=== PATIENT | female | born 1960 | race Caucasian/White ===

== ENCOUNTER → 2016-09-12 | Outpatient (CLI) | payer MEDICARE, MEDICAID ==
[~2016-09-12] MED LIST: ALPR.25T; AMOX250C PO; AMOX500T2 PO; APIX5TAB PO; BUDE10.2 IH; BUDE180A IH; CATHETER FLUSH 10 ML SYR IV PRN; CEFD300C3 PO; CEFU250T PO; CETI10TA20 PO; CHOL4PAC16 PO; CITA10TA70; DESV50TA PO; DIAZ5TAB3 PO; DIPH1TAB PO; ESTR0.5T PO; HYDR-3816 PO; HYDR1CAP2; IOHEXOL 350 MG/ML 100 ML (OMNIPAQUE 350) VIAL IV ONE; LANS15CA; MEDR2.5T PO; MONT10TA24 PO; NS 100 ML (IVPB) BAG IV ONE; ONDA4TAB8 PO; PANT40TA2 PO; PANT40TA3 PO; PRAV40TA2 PO; PRD20T PO; RANI150T90 PO; RT-ALBUINH IH; SOTA80TA PO; UMEC1BLS IH; UMEC62.5 IH; VARE1TAB22 PO
--- OUTSIDE RECORDS SUMMARY | 2016-09-12 12:27 | XMS REPORT | Continuity of Care Document ---
Author Author [facility] Organization [facility] Address Unknown Phone Unavailable Care Team Providers Care Apprentice Stylist Name Role Phone MUKESH NEWELL MD PCP Insurance Providers Payer Name Policy Number Subscriber Name Relationship s Medicare [id number] Britta Clarke 18 Self / Same As Patient [facility] [employer] [id number] Britta Clarke 18 Self / Same As Patient Advance Directives Directive Response Recorded Date/Time Advance Directives No 10/20/08 11:00am Health Care Power of Gas Operations Superintendent No 10/20/08 11:00am Organ Donor Yes 10/20/08 11:00am Problems No known problems or medical conditions. Medications Medication Dose Route Sig Days/Qty Instructions Order Date Discontinued Date Status Citalopram Hydrobromide 12/28/09 Active Lansoprazole 12/28/09 Active Hydrocodone Bit/Acetaminophen 12/28/09 Active Alprazolam 12/28/09 Active Social History Social History Problem Response Recorded Date/Time Recent Foreign Travel No 10/19/2014 9:17am Hospital Discharge Instructions No hospital discharge instructions. Plan of Care No plan of care. Functional Status No functional status results. Allergies, Adverse Reactions, Alerts Allergen Type Severity Reaction Status Last Updated No Known Drug Allergies Allergy Unknown Active 10/20/08 Immunizations No immunization records. Vital Signs No known vital signs results. Results No known relevant diagnostic tests, laboratory data and/or discharge summary. Procedures No known history of procedures. Encounters Encounter Location Date/Time Discharged Recurring Via [facility] 11/04/14 3:36pm
--- NOTE | 2016-09-12 14:35 | Diagnostic Imaging Report ---
PROCEDURE: CT chest with contrast only. TECHNIQUE: Multiple contiguous axial images were obtained through the chest after administration of intravenous contrast. INDICATION: Lung cancer. COMPARISON: PET/CT of 05/15/[address] chest of 09/29/2015. FINDINGS: The previously seen areas of scarring in the superior segment of the right lower lobe posterior to the right hilum are again noted. Since the prior exams, there has been radiation changes to the right lung apex previously seen nodule which measures 9 mm on the prior PET. At this time, there is enlargement of the nodular density to 1.3 cm with adjacent mixed density consolidation. This could be related to radiation changes. There are fiducial markers seen anterior to this nodule. There is background emphysema. Minimal atelectasis in the right lung base is seen. No pleural effusion. No pericardial effusion. The heart size is normal. The thoracic aorta is normal in caliber. No mediastinal mass or mediastinal or hilar significant lymphadenopathy is seen. Borderline sized right paratracheal lymph node with fatty hilum is again noted and is likely benign. This demonstrated no FDG avidity on April PET exam. Bilateral subglandular breast implants are seen. No axillary lymphadenopathy is noted. Sections in the upper abdomen demonstrate a tiny hypodense lesion in the medial aspect of the left hepatic lobe measuring 0.6 cm. This is not definitively seen on the prior exam. This is however too small to characterize. The adrenals appear unremarkable. The osseous structures appear grossly unremarkable. IMPRESSION: 1. The nodule in the right lung apex appears slightly larger with surrounding mixed density consolidation probably related to interval radiation therapy changes. Continued followup recommended. No new mass or nodule. 2. Emphysema. 3. Medial left hepatic lobe 0.6 cm indeterminate hypodense lesion too small to accurately characterize. Followup recommended. Dictated by: Dictated on workstation # [id number]
== END ==
LOC: RAD 12:23
PROVIDERS: ATTEND Internal Medicine
DX: C34.91 Malignant neoplasm of unspecified part of right bronchus or lung (principal)
CPT/HCPCS: 71260

== ENCOUNTER → 2016-10-23 | Outpatient (CLI) | payer MEDICARE, MEDICAID ==
[~2016-10-23] MED LIST changes: -CATHETER FLUSH 10 ML SYR IV PRN; -IOHEXOL 350 MG/ML 100 ML (OMNIPAQUE 350) VIAL IV ONE; -NS 100 ML (IVPB) BAG IV ONE
--- NOTE | 2016-10-23 15:03 | Diagnostic Imaging Report ---
EXAMINATION: PET-CT TECHNIQUE: Serum glucose level at the time of the study is: 104 mg/dL. 13 mCi of FDG was administered intravenously followed by obtaining PET images with corresponding noncontrast CT scan images. The CT scan was performed for anatomic correlation and attenuation correction and was not performed according to the diagnostic protocol of the areas covered. The scan was performed from the head to mid thighs. INDICATION: Non-small cell lung cancer. The patient has had CyberKnife radiation treatment in January 2016 for right upper lobe nodule. FINDINGS: Current measurement of the right upper lobe nodule is 1.4 cm. This is associated with surrounding groundglass opacity. There is associated mild increased FDG uptake with a maximum SUV of 3.2. Fiducial markers at the site of the nodule slightly anterior to the nodule is seen. There is appearance suggestive of scarring in the posterior perihilar region on the right side likely related to scarring from prior treatments. There is otherwise no suspicious hypermetabolic mass or lymphadenopathy in the chest. IN THE ABDOMEN AND PELVIS: There is urinary expected excretion of the tracer seen. There is activity projecting over the rectum as well inseparable from the bladder activity. Whether this is physiologic or related to underlying hypermetabolic lesion is uncertain. This activity also involves the upper cervix and vagina region. No obvious mass on the associated localizer CT scan. The brain has symmetric FDG uptake. In the neck, there is no significant hypermetabolic activity noted. IMPRESSION: 1. Right upper lobe pulmonary 1.4 cm nodule slightly larger compared to 05/15/2016 with surrounding groundglass opacity and minimal hypermetabolism is noted. This could be related to radiation effects with no suspicious other lesion seen in the chest. Continued followup recommended. 2. Indeterminate mild to moderate increased FDG uptake projecting over the upper vagina/cervix region and projecting over the rectum is noted. There is no definite associated soft tissue lesion on the localizer unenhanced CT scan. Clinical correlation would help and consider endoscopic evaluation if needed. Physiologic activity or inflammation in the vagina or rectum could explain this finding. Dictated by: Dictated on workstation # [id number]
--- OUTSIDE RECORDS SUMMARY | 2016-10-23 15:56 | XMS REPORT | Continuity of Care Document ---
Author Author [facility] Organization [facility] Address Unknown Phone Unavailable Care Team Providers Care Gluer Machine Setup Operator Name Role Phone MUKESH NEWELL MD PCP Insurance Providers Payer Name Policy Number Subscriber Name Relationship s Medicare [id number] Britta Clarke 18 Self / Same As Patient [facility] [employer] [id number] Britta Clarke 20 Self / Same As Patient Advance Directives Directive Response Recorded Date/Time Advance Directives No 10/20/08 11:00am Health Care Power of Clerk Carrier No 10/20/08 11:00am Organ Donor Yes 10/20/08 [...] Encounters Encounter Location Date/Time Discharged Recurring Via [facility] 11/04/14 3:36pm
== END ==
LOC: RAD 12:06
PROVIDERS: ATTEND Internal Medicine Critical Care Medicine
DX: R91.1 Solitary pulmonary nodule (principal); C34.91 Malignant neoplasm of unspecified part of right bronchus or lung

== ENCOUNTER → 2016-11-01 | Outpatient (CLI) | payer MEDICARE, MEDICAID ==
--- OUTSIDE RECORDS SUMMARY | 2016-11-01 10:18 | XMS REPORT | Continuity of Care Document ---
Author Author [facility] Organization [facility] Address Unknown Phone Unavailable Care Team Providers Care Merchandise Processor Name Role Phone MUKESH NEWELL MD PCP Insurance Providers Payer Name Policy Number Subscriber Name Relationship s Medicare [id number] Britta Clarke 20 Self / Same As Patient [facility] [employer] [id number] Britta Clarke 20 Self / Same As Patient Advance Directives Directive Response Recorded Date/Time Advance Directives No 10/20/08 11:00am Health Care Power of Processing Manager No 10/20/08 11:00am Organ Donor Yes 10/20/08 [...] Encounters Encounter Location Date/Time Discharged Recurring Via [facility] 11/04/14 3:36pm
--- NOTE | 2016-11-01 18:00 | Diagnostic Imaging Report ---
INDICATION: Cervical mass. Post menopausal. TECHNIQUE: Multiple real-time grayscale sonographic images were obtained of the pelvis transabdominally and endovaginally. CORRELATION STUDY: None FINDINGS: UTERUS/ENDOMETRIUM: Uterus measures 8.4 x 4.1 x 3.5 cm. The uterus has an unremarkable appearance. The endometrium measures 5 mm in thickness. RIGHT OVARY: Not visualized on transabdominal and/or endovaginal imaging. LEFT OVARY: Not visualized on transabdominal and/or endovaginal imaging. No significant free pelvic fluid. There is prominent appearance about the level of the cervix. This measures approximately 1.4 x 1.3 x 1.0 cm. There appear to be multiple cystic areas likely small cervical nabothian cysts. IMPRESSION: 1. Suggestion of nonspecific enlargement about the cervix. Correlation with direct visualization and biopsy would be recommended if indicated. Probable cervical nabothian cysts. 2. Endometrium is at the most upper limits of normal in thickness for a postmenopausal patient. Possibility of early endometrial hyperplasia or less likely carcinoma not excluded but should consider short-term follow-up imaging for reassessment. 3. Nonvisualization of either ovary may be owing to positioning, obscuration, or perhaps small size. Dictated by: Dictated on workstation # [id number]
--- NOTE | 2016-11-12 13:50 | Diagnostic Imaging Report ---
EXAMINATION: Bilateral screening mammogram with a Computer Aided Detection (CAD) system. INDICATION: Screening. PERSONAL HISTORY: No current complaints stated on the questionnaire. COMPARISON: 01/12/2014. FINDINGS: The breasts are composed of heterogeneously dense parenchyma which may decrease mammographic sensitivity. Retroglandular bilateral implants are seen which appear symmetric. Allowing for technique and positional differences, no suspicious change is seen. IMPRESSION: No significant change. ACR BI-RADS Category 2: Benign findings. Result letter will be mailed to the patient. Note: At least 10% of breast cancer is not imaged by mammography. Dictated by: Dictated on workstation # [id number]
== END ==
LOC: RAD 10:15
PROVIDERS: ATTEND Nurse Practitioner
DX: Z12.31 Encounter for screening mammogram for malignant neoplasm of breast (principal); N88.8 Other specified noninflammatory disorders of cervix uteri
CPT/HCPCS: 76830; 76856; 77067

== ENCOUNTER 2016-11-29 14:32 | Outpatient (CLI) | payer MEDICARE, MEDICAID ==
[~2016-11-29] VITALS: Ht 167.6 cm; Wt 93.0 kg
[~2016-11-29 14:32] MED LIST changes: -AMOX250C PO; -AMOX500T2 PO; -BUDE10.2 IH; -DESV50TA PO; -MONT10TA24 PO; -PANT40TA3 PO; -PRAV40TA2 PO; -UMEC62.5 IH; -VARE1TAB22 PO
[2016-11-29 14:40] VITALS: BP 110/71
[2016-11-29] MEDS ORDERED: VARE1TAB22 PO (14:49)
[2016-11-29] MEDS ORDERED: BUDE10.2 IH (14:49)
[2016-11-29] MEDS ORDERED: DESV50TA PO (14:49)
[2016-11-29] MEDS ORDERED: AMOX250C PO (14:49)
[2016-11-29] MEDS ORDERED: UMEC62.5 IH (14:49)
[2016-11-29] MEDS ORDERED: PANT40TA3 PO (16:09)
[2016-11-29] MEDS ORDERED: RT-ALBUINH IH (16:09)
[2016-11-29] MEDS ORDERED: PRD20T PO (16:09)
[2016-11-29] MEDS ORDERED: MONT10TA24 PO (16:09)
[2016-11-29] MEDS ORDERED: PRAV40TA2 PO (16:09)
[2016-11-29] MEDS ORDERED: AMOX500T2 PO (16:12)
== END 2016-11-29 14:55 | disposition home or self-care (01) ==
LOC: PREOP 14:32
PROVIDERS: ATTEND Obstetrics & Gynecology
DX: Z01.818 Encounter for other preprocedural examination (principal); Z11.2 Encounter for screening for other bacterial diseases; R93.8 Abnormal findings on diagnostic imaging of other specified body structures; Z85.118 Personal history of other malignant neoplasm of bronchus and lung
CPT/HCPCS: 87081

== ENCOUNTER 2016-12-03 06:29 | Day surgery (SDC) | payer MEDICARE, MEDICAID ==
[~2016-12-03] VITALS: Ht 167.6 cm; Wt 93.0 kg
[~2016-12-03 06:29] MED LIST changes: +AMOX250C PO; +AMOX500T2 PO; +BUDE10.2 IH; +DESV50TA PO; +MONT10TA24 PO; +PANT40TA3 PO; +PRAV40TA2 PO; +UMEC62.5 IH; +VARE1TAB22 PO
[2016-12-03 06:50] VITALS: BP 127/80
[2016-12-03 06:50] LABS: BILIRUBIN,URINE NEGATIVE (NEGATIVE); KETONES,URINE NEGATIVE (NEGATIVE); LEUKOCYTE ESTERASE ,URINE 1+ (NEGATIVE); NITRITE,URINE NEGATIVE (NEGATIVE); PH,URINE 7 (5-9); PROTEIN,URINE 1+ (NEGATIVE); UROBILINOGEN,URINE 4 MG/DL (NORMAL)
[2016-12-03 07:00] LABS: WBC,URINE RARE /HPF
[2016-12-03] MEDS ORDERED: MIDAZOLAM 2 MG/2 ML (VERSED) VIAL IV ONE (07:15)
[2016-12-03] MEDS ORDERED: fentaNYL INJECTION 100 MCG/2 ML AMP ONE ×2 (07:15→08:57)
[2016-12-03] MEDS: LACTATED RINGERS 1,000 ML IV PRN ×2 (07:24→08:17)
--- NOTE | 2016-12-03 07:44 | Progress Note-Standard ---
"Standard Progress Note Progress Notes/Assess & Plan Date Seen 12/03/16 Assess & Plan/Chief Complaint H&P sent on 11/30/16 by myself via fax however pre-op does not have it, thus it is copy and pasted into the patient's chart this AM No changes to H&P this AM Gynecology Visit * Patient: ROC NAYAK Age: 56 years Sex: Female : 1960 Associated Diagnoses: None Author: Cayetano SUMMERS, Senait Visit Information Visit type: New patient evaluation. Accompanied by: No one. Source of history: Self, Medical record. Referral source: Jessica Adler APRN. History limitation: None. 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 No PMB. Is on HRT as RX by Jessica. Reports yeast like symptoms after finishing antibiotics Worried that this could represent a new cancer Review of Systems Breast: Negative. Gastrointestinal: Negative, No abdominal pain. Genitourinary: reports incomplete emptying, incontinence. Gynecologic: discharge, itching thought to be r/t yeast . Psychiatric: Negative. Health Status Allergies: Allergic Reactions (Selected) No Known Medication Allergies Medications: (Selected) Prescriptions Prescribed Diflucan 150 mg oral tablet: 1 tab(s) ( 150 mg ), PO, Once, Instructions: repeat in 48-72 hours if still symptomatic, # 2 tab(s), 0 Refill(s), Type: Soft Stop, Pharmacy: [facility], 1 tab(s) po once,Instr:repeat in 48-72 hours if still symptomatic Pristiq 50 mg oral tablet, extended release: 1 tab(s) ( 50 mg ), po, daily, # 90 tab(s), 5 Refill(s), Type: Maintenance, Pharmacy: [facility], 1 tab (s) po daily Documented Medications Documented Carafate 1 g oral tablet: 1 tab(s) ( 1 gm ), po, qidachs, PRN: Other (see comment), 0 Refill(s), Type: Maintenance Chantix Starter Pack: 0 Refill(s), Type: Maintenance Chlor Trimeton Allergy Decongestant: 0 Refill(s), Type: Maintenance Eliquis 5 mg oral tablet: 1 tab(s) ( 5 mg ), po, bid, 0 Refill(s), Type: Maintenance Incruse Ellipta 62.5 mcg/inh inhalation powder: ( 62.5 mcg ), inh, q 24 hrs, 0 Refill(s), Type: Maintenance N-acetylcysteine orally: N-acetylcysteine orally, Supply, 0 Refill(s), Type: Maintenance Pravachol: ( 40 mg ), po, daily, 0 Refill(s), Type: Maintenance Protonix 40 mg oral delayed release tablet: 1 tab(s) ( 40 mg ), PO, Daily, # 30 tab(s), 0 Refill(s), Type: Maintenance Singulair 10 mg oral tablet: 1 tab(s) ( 10 mg ), PO, qPM, # 30 tab(s), 0 Refill( s), Type: Maintenance Symbicort 160 mcg-4.5 mcg/inh inhalation aerosol: 2 puff(s), inh, bid, 0 Refill( s), Type: Maintenance Valium 5 mg oral tablet: See Instructions, Instructions: 1-2 tab(s) po daily prn , 0 Refill(s), Type: Maintenance Ventolin HFA 90 mcg/inh inhalation aerosol: 2 puff(s), inh, qid, 0 Refill(s), Type: Maintenance Zofran 4 mg oral tablet: 1 tab(s) ( 4 mg ), po, prn, 0 Refill(s), Type: Maintenance acetaminophen-hydrocodone 325 mg-7.5 mg oral tablet: 1 tab(s), PO, q4hr, PRN: for pain, 0 Refill(s), Type: Maintenance albuterol 2.5 mg/3 mL (0.083%) inhalation solution: 3 mL ( 2.5 mg ), INH, q6hr, # 120 EA, 0 Refill(s), Type: Maintenance amoxicillin: tid, 0 Refill(s), Type: Maintenance estradiol 0.5 mg oral tablet: 1 tab(s) ( 0.5 mg ), PO, Daily, # 90 tab(s), 0 Refill(s), Type: Maintenance fluticasone 50 mcg inhalation powder: 1 EA ( 50 mcg ), INH, BID, # 60 EA, 0 Refill(s), Type: Maintenance medroxyPROGESTERone 2.5 mg oral tablet: 1 tab(s) ( 2.5 mg ), PO, Daily, # 30 tab (s), 0 Refill(s), Type: Maintenance predniSONE 20 mg oral tablet: 1 tab(s) ( 20 mg ), po, daily, 0 Refill(s), Type: Maintenance sotalol 80 mg oral tablet: 1 tab(s) ( 80 mg ), PO, BID, # 60 tab(s), 0 Refill(s) , Type: Maintenance tiZANidine 4 mg oral tablet: 2 tab(s) ( 8 mg ), po, prn, 0 Refill(s), Type: Maintenance Problem list: All Problems (Selected) Tobacco user / SNOMED CT 965007242 / Probable COPD (chronic obstructive pulmonary disease) / SNOMED CT 213496371 / Confirmed PAF (paroxysmal atrial fibrillation) / SNOMED CT [id number] / Confirmed Obesity / SNOMED CT 7417673561 / Probable GUAN (dyspnea on exertion) / SNOMED CT 996020095 / Confirmed Diaphoresis / SNOMED CT [id number] / Confirmed Hyperthyroidism / SNOMED CT [id number] / Confirmed Allergic rhinitis / SNOMED CT 188135748 / Confirmed Chest pain / SNOMED CT 98081661 / Confirmed Lung nodule seen on imaging study / SNOMED CT 913968888 / Confirmed Palpitations / SNOMED CT 722509935 / Confirmed CA - Lung cancer / SNOMED CT 6937587104 / Confirmed Histories Past Medical History: Resolved (867833594): Resolved in 1977 at 17 years. (275621127): Resolved in 1983 at 23 years. Cancer of lung ([id number]): Resolved. Depression (9088133712): Resolved. Frequent UTI (048902259): Resolved. GERD (Gastroesophageal Reflux Disease) (265569561): Resolved. Family History: OSTEOPOROSIS Mother Cancer Father Comments: 02/23/2015 5:25 PM - Beth Whiteside Liver cancer Stroke Mother Hyperlipidemia Mother Diabetes Mellitus Father Heart Disease Mother Procedure history: CyberKnife (8337571027) in the month of 01/2016 at 55 Years. LEEP procedure of cervix (52409360) in 2011 at 52 Years. Lobectomy (646558915) in 2008 at 49 Years. Comments: 02/23/2015 5:22 PM - Beth Whiteside R middle lobe Tubal ligation (673243262) in 2000 at 41 Years. Breast augmentation (7707383710) in 1997 at 38 Years. Foot Surgery in 1984 at 25 Years. Tonsillectomy (129363949) in 1974 at 15 Years. Urethral dilatation (9059375603). Cervical spinal fusion (858240966). Colonoscopy (462828171). Comments: 02/23/2015 5:24 PM - Beth Whiteside and EGD 3 months ago. Social History: Alcohol Assessment: Low Risk Tobacco Assessment: Current Current every day smoker Substance Abuse Assessment: Denies Substance Abuse Employment and Education Assessment Disability Physical Examination Vital Signs 11/28/2016 3:06 PM CDT Systolic Blood Pressure 110 mmHg Diastolic Blood Pressure 78 mmHg Mean Arterial Pressure 89 mmHg Measurements from flowsheet : Measurements 11/28/2016 3:06 PM CDT Height Measured - Standard 65 in Weight Measured - Standard 205 lb BSA 2.06 m2 Body Mass Index 34.11 kg/m2 General: Alert and oriented, No acute distress. Gastrointestinal: Soft, Non-tender, Non-distended. Gynecology: Labia: Atrophied. Vagina: moderate atrophy, rectocele present. Cervix: very anterior in location, could not gain access to os for biopsy despite multiple speculum changes and position changes. no lesions noted.. Psychiatric: Cooperative, Appropriate mood & affect. Review / Management Results review: Lab results 10/30/2016 4:30 PM RESEARCH CONSULTANT UA pH 6.5 UA Glucose Negative UA Bilirubin Negative UA Ketones Negative UA Protein Negative UA Nitrite Negative UA Leuk Est Negative WBC /HPF 0 UA Squam Epithelial 3.1 mcL UA WBC 0.7 mcL UA RBC 16.3 mcL UA Hgb Negative RBC /HPF 3 Specific Encinal 1.008 10/30/2016 4:25 PM RESEARCH CONSULTANT Urine Color Urine Dipstick Yellow Urine Appearance Urine Dipstick Clear pH Urine Dipstick 6.5 Specific Encinal Urine Dipstick < 1.005 Glucose Urine Dipstick Negative Bilirubin Urine Dipstick Negative Ketones Urine Dipstick Negative Blood Urine Dipstick Trace Protein Urine Dipstick Negative Nitrite Urine Dipstick Negative Leukocyte Esterase Urine Dipstick Negative Urobilinogen Urine Dipstick 0.2 mg/dl Impression and Plan Plan: 56 y/o postmenopausal woman with slightly thickened endometrium (5mm) on sono following evaluation of abnormal uptake on PET scan in region of vagina/ cervix I think the abnormal uptake is likely due to her recent infection as any inflammation in the area can cause this Pap smear was normal (other than absent ECC - ECC was done today) Unfortunately I was unable to obtain endometrial biopsy in office today due to positioning of cervix/patient tolerance of attempted procedure Will need to proceed to OR to evaluate definitively with hysteroscopy, D&C Counseled normally would not evaluate endometrium in asymptomatic woman with EMS of 5 mm but given PET findings I think it is prudent to ensure no lesions present If normal, would recommend routine f/u and update colonoscopy For urinary incontinence - will referral to Dr. Valdez after work-up is completed here Diflucan for yeast vaginitis Risks, benefits and alternatives explained to patient for hysteroscopy, D&C. Outpatient procedure. Do NOT stop eliquis, low bleeding risk. NPO after midnight Saturday night with procedure on Saturday AM (12/03). Call with questions/ concerns beforehand. Otherwise, can return to Jessica Adler APRN for care - thank you for allowing me to care for this very nice patient.. Orders Orders Charges (Evaluation and Management): [id number] office outpatient visit 15 minutes (Charge) (Order): Quantity: 1, Abnormal finding on radiology exam | Postmenopause. Signature Line Signed and Authored by Senait Monteiro MD on 11/28/2016 06:05 PM CDT Charted Date: November 28, 2016 5:57 PM CDT Subject / Title: Gynecology Visit * Performed By: Senait Monteiro MD on November 28, 2016 6:05 PM CDT Electronically Signed By: Senait Monteiro MD on November 28, 2016 6:05 PM CDT Visit Information: [id number], Via [facility], 11/28/2016 - 11/30/2016 SENAIT MONTEIRO MD Dec 03, 2016 07:43"
--- NOTE | 2016-12-03 07:48 | Discharge Inst-Women's Service ---
Discharge Inst-Women's Serv Depart Medication/Instructions New, Converted or Re-Newed RX: Other (no new RX) Final Diagnosis Thickened endometrium, postmenopausal Consults/Follow Up Additional Follow Up: Yes Orders/Referrals 2-[address] Monteiro Activity Activity: Activity as Tolerated Driving Instructions: No Driving for 24 Hours NO SMOKING: NO SMOKING Nothing Inside Vagina: No Douching, No [place], No Tampons Diet Discharge Diet: No Restrictions Symptoms to Report to : Bleeding Excessive, Pain Increased, Fever Over 101 Degrees F, Pain/Pressure in Chest, Vaginal Bleeding Increase, Dizziness/Fainting , Nausea/Vomiting, Shortness of Breath For Any Problems or Questions: Contact Your Physician, Go to Emergency Room LAKESHIA MONTEIRO MD Dec 03, 2016 07:48
[2016-12-03] MEDS ORDERED: proPOfol 200 MG/20 ML (DIPRIVAN) VIAL IV ONE (08:16)
[2016-12-03] MEDS ORDERED: LIDOCAINE PF 2% 10 ML (XYLOCAINE) AMP ONE (08:16)
[2016-12-03] MEDS ORDERED: SEVOFLURANE (ULTANE) 15 ML INHAL SOLN ONE (08:16)
[2016-12-03] MEDS ORDERED: LACTATED RINGERS 2,000 ML IV ONE (08:16)
[2016-12-03] MEDS ORDERED: DEXAMETHASONE PF 10 MG/ML (DECADRON) VIAL ONE (08:27)
[2016-12-03] MEDS ORDERED: ONDANSETRON 4 MG/2 ML (SDV) Z0FRAN ONE (08:27)
[2016-12-03] MEDS ORDERED: morphine INJ 10 MG/ML 1ML (SYR OR VIAL) ONE (08:37)
[2016-12-03] MEDS: morphine INJ 10 MG/ML 1ML (SYR OR VIAL) IVP PRN ×2 (08:42→08:50)
[2016-12-03] MEDS ORDERED: fentaNYL INJECTION 100 MCG/2 ML AMP IVP PRN (09:00)
--- NOTE | 2016-12-03 09:08 | OB/GYN Operative Report ---
Operative Report Date of Procedure: December 03, 2016 Preoperative Diagnosis: Thickened endometrium, postmenopausal status Postoperative Diagnosis: Same Procedure: Hysteroscopy, dilatation and curettage Surgeon: Senait Monteiro MD Peanut Sheller: ARACELI Cazares Anesthesia: General Estimated Blood Loss: Minimal Indications for Procedure: This is a 56 y/o female who presented to Jessicavarinder Adler APRN for follow-up on abnormal PET scan with increased uptake in the cervix/ vagina/bladder/rectum area identified. She had an ultrasound which revealed a thickened endometrium to 5mm. Thorough examination revealed no evidence of a cervical or vaginal lesion. Given this and the abnormal PET scan, I counseled her on need for endometrial sampling. Endometrial biopsy was attempted in the office however not possible due to patient tolerance of the procedure and anterior positioning of the cervix. She was counseled on proceeding to the OR for definitive diagnosis. She does have some urinary complaints as well and we will plan to have her see Dr. Valdez once then gynecologic work-up is done, as well as colonoscopy to rule out rectal involvement. Findings: Atrophic appearing endometrial cavity with bilateral tubal ostia visualized. No lesions noted. 120 cc total NS hysteroscopic fluids, 20 cc deficit. Vagina with cystocele and rectocele noted. Procedure: The patient was taken to the operating room where sequential compression devices were placed on the bilateral lower extremities. Intravenous fluids were running. General anesthesia was obtained without difficulty. She was repositioned in the dorsal lithotomy position with the use of Yellofin stirrups. She was prepped and draped in the typical sterile fashion. The bladder was emptied with a straight catheterization yielding 25 cc of clear yellow urine. A weighted speculum was placed in the vagina. A right angle was utilized to elevate the vaginal tissue anteriorly. An Allis was placed on the anterior lip of the cervix. The uterus was sounded to 7cm. Lorenz dilators were used to dilate the cervix to 17mm. The Truclear 5 mm hysteroscope was then advanced into the uterine cavity under direct visualization. The aforementioned findings were noted; no intrinsic lesions were seen. The hysteroscope was removed. A sharp circumferential curettage was performed with a small sharp curette; this was sent to pathology. All instruments were removed from the vagina; the anterior lip of the cervix was hemostatic after Allis removal. The patient tolerated the procedure well. Instrument counts were correct. The patient was taken to recovery in stable condition. Complications: None Disposition: Home, stable SENAIT MONTEIRO MD Dec 03, 2016 09:08
[2016-12-03 09:30] VITALS: BP 113/80
[2016-12-03 10:00] VITALS: BP 110/68
[2016-12-03] MEDS ORDERED: methylPREDNISolone 125 MG (Solu-MEDROL) VIAL ONE (10:08)
== END 2016-12-03 10:40 | disposition home or self-care (01) ==
LOC: SDC 06:29
PROVIDERS: ATTEND Obstetrics & Gynecology
DX: R93.5 Abnormal findings on diagnostic imaging of other abdominal regions, including retroperitoneum (principal); Z78.0 Asymptomatic menopausal state
CPT/HCPCS: 81000; 88305

== ENCOUNTER 2016-12-21 11:04 | Emergency (ER) | payer MEDICARE, MEDICAID ==
[~2016-12-21] VITALS: Ht 165.1 cm; Wt 93.0 kg
[2016-12-21] MEDS ORDERED: NS IV 1000 ML 1,000 ML IV SCH (11:30)
[2016-12-21] MEDS ORDERED: LORazepam INJ 2 MG/ML (ATIVAN) VIAL IVP ONE (11:30)
[2016-12-21] MEDS ORDERED: KETOROLAC 30 MG/ML VIAL IVP ONE (11:30)
--- NOTE | 2016-12-21 11:31 | ED Chest Pain ---
General Stated Complaint: CHEST PRESSURE/PAIN Source: patient Exam Limitations: no limitations History of Present Illness Time seen by provider: 11:28 Initial Comments To ER with reports of chest pain. Upon elaboration of this, she states that pain is on the right and left side of her chest is a small golf ball sized area that feels as though it's a muscle spasm in these been present for about a week. She also has similar feeling to the left low thoracic back and the right side of her low thoracic back. She was little short of breath last night but not currently. She states that she did vomit 4-5 times last night. She also had some alcohol last night because she's been under quite a bit of stress lately. Timing/Duration: 1 week Severity/Quality: moderate ASA po RADIATION PROTECTION TECHNICIAN: No NTG SL RADIATION PROTECTION TECHNICIAN: No Associated Symptoms: No abdominal pain, back pain, No diaphoresis, No dizziness , nausea/vomiting Allergies and Home Medications Allergies Coded Allergies: No Known Drug Allergies (Verified , 10/20/08) Home Medications Albuterol Sulfate 1 Puff Puff, 2 PUFF IH Q4H PRN for WHEEZING, (Reported) 1 PUFF = 90 MCG Amoxicillin 500 Mg Tablet, 500 MG PO TID, (Reported) Apixaban 5 Mg Tablet, 5 MG PO BID, (Reported) Budesonide/Formoterol Fumarate 10.2 Gm Hfa.aer.ad, 2 PUFF IH BID, (Reported) Desvenlafaxine Succinate 50 Mg Tab.er.24h, 50 MG PO DAILY, (Reported) Diazepam 5 Mg Tablet, 2.5 MG PO TID PRN for ANXIETY, (Reported) Diphenoxylate HCl/Atropine 1 Each Tablet, 1 EACH PO QID PRN for DIARRHEA, ( Reported) Estradiol 0.5 Mg Tablet, 0.5 MG PO DAILY, (Reported) Hydrocodone/Acetaminophen 1 Each Tablet, 1 EACH PO TID PRN for PAIN, (Reported) Medroxyprogesterone Acetate 2.5 Mg Tablet, 2.5 MG PO DAILY, (Reported) Montelukast Sodium 10 Mg Tablet, 10 MG PO HS, (Reported) Ondansetron 4 Mg Tab.rapdis, 4 MG PO Q4H PRN for NAUSEA/VOMITING, (Reported) Pantoprazole Sodium 40 Mg Tablet.dr, 40 MG PO DAILY, (Reported) Pravastatin Sodium 40 Mg Tablet, 40 MG PO DAILY, (Reported) Prednisone 20 Mg Tab, 20 MG PO DAILY, #11 (Reported) Sotalol HCl 80 Mg Tablet, 80 MG PO BID, (Reported) Umeclidinium [place] 62.5 Mcg Blst.w.dev, 62.5 MCG IH DAILY, (Reported) Varenicline Tartrate 1 Mg Tablet, 1 MG PO BID, (Reported) Review of Systems Constitutional: see HPI EENTM: No Symptoms Reported Respiratory: No Symptoms Reported Cardiovascular: See HPI, Chest Pain Gastrointestinal: See HPI Genitourinary: No Symptoms Reported Musculoskeletal: no symptoms reported Skin: no symptoms reported Psychiatric/Neurological: No Symptoms Reported Endocrine: No Symptoms Reported Hematologic/Lymphatic: No Symptoms Reported Past Gsjrfxs-Zavvjn-Tneshg Hx Patient Social History Type Used: Cigarettes Recent Foreign Travel: No Contact w/Someone Who Travel: No Recent Hopitalizations: No Immunizations Up To Date Date of Pneumonia Vaccine: Oct 24, 2013 Date of Influenza Vaccine: May 26, 2015 Seasonal Allergies Seasonal Allergies: Yes Surgeries HX Surgeries: Yes (BUNIONECTOMY, NECK FUSION, breast implants) Surgeries: Lobectomy, Tubal Ligation Respiratory Hx Respiratory Disorders: Yes ( HX OF LUNG CA) Respiratory Disorders: Asthma, COPD Cardiovascular Hx Cardiac Disorders: Yes Cardiac Disorders: Atrial Fibrillation Neurological Hx Neurological Disorders: No 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 System Hx 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 Disorders: Yes (pmb) Genitourinary Hx Genitourinary Disorders: No Gastrointestinal Hx Gastrointestinal Disorders: No Musculoskeletal Hx Musculoskeletal Disorders: Yes Musculoskeletal Disorders: Arthritis, Chronic Back Pain Endocrine Hx Endocrine Disorders: No HEENT HX ENT Disorders: No Cancer Hx Cancer: Yes Cancer: Lung Psychosocial Hx Psychiatric Problems: Yes Behavioral Health Disorders: Anxiety, Depression Integumentary HX Skin/Integumentary Disorder: No Blood Transfusions Hx Blood Disorders: No Family Medical History Significant Family History: No Pertinent Family Hx Physical Exam Vital Signs Vital Sign - Last 12Hours 12/21/16 12/21/16 11:11 11:38 Pulse 127 Resp 20 B/P (MAP) 101/78 Pulse Ox 96 O2 Delivery Room Air Capillary Refill : General Appearance: No Apparent Distress, WD/WN HEENT: PERRL/EOMI, TMs Normal Neck: Full Range of Motion, Normal Inspection Respiratory: Lungs Clear, Normal Breath Sounds, No Accessory Muscle Use, No Respiratory Distress Cardiovascular: Regular Rate, Rhythm, Normal Peripheral Pulses Gastrointestinal: Normal Bowel Sounds, Non Tender, Soft Extremity: Normal Capillary Refill, Normal Inspection Neurologic/Psychiatric: Alert, Oriented x3, No Motor/Sensory Deficits Skin: Normal Color, Warm/Dry Progress/Results/Core Measures Results/Orders Lab Results Laboratory Tests Test 12/21/16 11:13 12/21/16 12:31 Range/Units White Blood Count 9.7 4.3-11.0 10^3/uL Red Blood Count 4.32 L 4.35-5.85 10^6/uL Hemoglobin 14.7 11.5-16.0 G/DL Hematocrit 42 35-52 % Mean Corpuscular Volume 98 80-99 FL Mean Corpuscular Hemoglobin 34 25-34 PG Mean Corpuscular Hemoglobin Concent 35 32-36 G/DL Red Cell Distribution Width 15.4 H 10.0-14.5 % Platelet Count 194 130-400 10^3/uL Mean Platelet Volume 10.1 7.4-10.4 FL Neutrophils (%) (Auto) 88 H 42-75 % Lymphocytes (%) (Auto) 7 L 12-44 % Monocytes (%) (Auto) 4 0-12 % Eosinophils (%) (Auto) 0 0-10 % Basophils (%) (Auto) 0 0-10 % Neutrophils # (Auto) 8.6 H 1.8-7.8 X 10^3 Lymphocytes # (Auto) 0.7 L 1.0-4.0 X 10^3 Monocytes # (Auto) 0.4 0.0-1.0 X 10^3 Eosinophils # (Auto) 0.0 0.0-0.3 10^3/uL Basophils # (Auto) 0.0 0.0-0.1 10^3/uL Neutrophils % (Manual) 90 % Lymphocytes % (Manual) 7 % Monocytes % (Manual) 1 % Eosinophils % (Manual) 0 % Basophils % (Manual) 0 % Band Neutrophils 2 % Anisocytosis SLIGHT Sodium Level 137 135-145 MMOL/L Potassium Level 3.7 3.6-5.0 MMOL/L Chloride Level 102 98-107 MMOL/L Carbon Dioxide Level 23 21-32 MMOL/L Anion Gap 12 5-14 MMOL/L Blood Urea Nitrogen 17 7-18 MG/DL Creatinine 0.80 0.60-1.30 MG/DL Estimat Glomerular Filtration Rate > 60 BUN/Creatinine Ratio 21 Glucose Level 119 H 70-105 MG/DL Calcium Level 8.7 8.5-10.1 MG/DL Total Bilirubin 0.7 0.1-1.0 MG/DL Aspartate Amino Transf (AST/SGOT) 13 5-34 U/L Alanine Aminotransferase (ALT/SGPT) 22 0-55 U/L Alkaline Phosphatase 55 40-136 U/L Troponin I < 0.30 <0.30 NG/ML Total Protein 7.1 6.4-8.2 G/DL Albumin 4.3 3.2-4.5 G/DL Lipase 9 8-78 U/L Urine Color YELLOW Urine Clarity CLEAR Urine pH 5 5-9 Urine Specific [place] 1.020 1.016-1.022 Urine Protein 2+ H NEGATIVE Urine Glucose (UA) NEGATIVE NEGATIVE Urine Ketones NEGATIVE NEGATIVE Urine Nitrite NEGATIVE NEGATIVE Urine Bilirubin NEGATIVE NEGATIVE Urine Urobilinogen NORMAL NORMAL MG/DL Urine Leukocyte Esterase 1+ H NEGATIVE Urine RBC (Auto) 5+ H NEGATIVE Urine RBC 10-25 H /HPF Urine WBC 0-2 /HPF Urine Squamous Epithelial Cells 2-5 /HPF Urine Crystals NONE /LPF Urine Bacteria TRACE /HPF Urine Casts NONE /LPF Urine Mucus SMALL H /LPF Urine Culture Indicated NO My Orders Orders - VIVIAN BARRERA APRN Cbc With Automated Diff (12/21/16 11:27) Comprehensive Metabolic Panel (12/21/16 11:27) Lipase (12/21/16 11:27) Ua Culture If Indicated (12/21/16 11:27) Chest 1 View, Ap/Pa Only (12/21/16 11:27) Ekg Tracing (12/21/16 11:27) Troponin I (12/21/16 11:27) Ns Iv 1000 Ml (Sodium Chloride 0.9%) (12/21/16 11:30) Lorazepam Injection (Ativan Injection) (12/21/16 11:30) Ketorolac Injection (Toradol Injection) (12/21/16 11:30) Manual Differential (12/21/16 11:13) Medications Given in ED Current Medications Medications Dose Ordered Sig/Caitlin Route Start Time Stop Time Status Last Admin Dose Admin Ketorolac Tromethamine 30 mg ONCE ONCE IVP 12/21/16 11:30 12/21/16 11:31 DC 12/21/16 11:56 30 MG Lorazepam 1 mg ONCE ONCE IVP 12/21/16 11:30 12/21/16 11:31 DC 12/21/16 11:55 1 MG Vital Signs/I&O Vital Sign - Last 12Hours 12/21/16 12/21/16 11:11 11:38 Pulse 127 Resp 20 B/P (MAP) 101/78 Pulse Ox 96 O2 Delivery Room Air Room Air Progress Note : Progress Note NAME: ROC NAYAK [facility] REC#: [id number] PT STATUS: REG ER : 1960 PHYSICIAN: VIVIAN BARRERA APRN ADMIT DATE: 12/21/16/ER Draft Date of Exam:12/21/16 CHEST 1 VIEW, AP/PA ONLY EXAMINATION: Portable upright radiograph of the chest. INDICATION: Muscle spasm. Chest pain. FINDINGS: There is stable right perihilar consolidation, similar to 08/14/2016, which may relate to scarring. There is also scarring and surgical clips in the right suprahilar region adjacent to the mediastinum. There is no developing infiltrate or atelectasis. The heart size is normal. No effusion or pneumothorax. Cervical fusion hardware is seen. IMPRESSION: Stable right perihilar opacity which may relate to post treatment scarring. No acute process. Dictated on workstation # [id number] Dict: 12/21/16 1211 Trans: 12/21/16 1215 [id number] Interpreted by: SUKUMAR OLIVEROS MD Electronically signed by: Departure Impression Impression: Primary Impression: Muscle ache Disposition: 01 HOME, SELF-CARE Condition: Improved Departure-Patient Inst. Decision time for Depature: 12:23 Referrals: NO,LOCAL PHYSICIAN (PCP) Primary Care Physician Patient Instructions: Chest Pain That Is Not Caused by the Heart (DC) Add. Discharge Instructions: 1. Return to ER for any concerns 2. Follow-up with your doctor next week 3. Images Torso/Trunk 1 - Muscle Spams 2 - Muscle Spams 1 - Muscle Spams 2 - Muscle Spams VIVIAN BARRERA APRN Dec 21, 2016 11:31
[2016-12-21 11:40] LABS: BASOPHILS % (AUTO) 0 % (0-10); EOSINOPHILS % (AUTO) 0 % (0-10); LYMPHOCYTES # (AUTO) 0.7 X 10^3 (1.0-4.0); LYMPHOCYTES % (AUTO) 7 % (12-44); MEAN CORPUSCULAR HEMOGLOBIN 34 PG (25-34); MEAN CORPUSCULAR HGB CONC 35 G/DL (32-36); MEAN CORPUSCULAR VOLUME 98 FL (80-99); MEAN PLATELET VOLUME 10.1 FL (7.4-10.4); MONOCYTES # (AUTO) 0.4 X 10^3 (0.0-1.0); MONOCYTES % (AUTO) 4 % (0-12); NEUTROPHILS # (AUTO) 8.6 X 10^3 (1.8-7.8); NEUTROPHILS % (AUTO) 88 % (42-75); PLATELET COUNT 194 10^3/uL (130-400); RED BLOOD COUNT 4.32 10^6/uL (4.35-5.85); RED CELL DISTRIBUTION WIDTH 15.4 % (10.0-14.5); WHITE BLOOD COUNT 9.7 10^3/uL (4.3-11.0)
[2016-12-21 11:59] LABS: ALANINE AMINOTRANSFERASE 22 U/L (0-55); ALBUMIN 4.3 G/DL (3.2-4.5); ANION GAP 12 MMOL/L (5-14); ASPARTATE AMINO TRANSFERASE 13 U/L (5-34); BILIRUBIN,TOTAL 0.7 MG/DL (0.1-1.0); BLOOD UREA NITROGEN 17 MG/DL (7-18); BUN/CREATININE RATIO 21; CALCIUM 8.7 MG/DL (8.5-10.1); CARBON DIOXIDE 23 MMOL/L (21-32); CHLORIDE 102 MMOL/L (98-107); GFR ESTIMATED > 60; GLUCOSE 119 MG/DL (70-105); LIPASE 9 U/L (8-78); POTASSIUM 3.7 MMOL/L (3.6-5.0); SODIUM 137 MMOL/L (135-145); TOTAL PROTEIN 7.1 G/DL (6.4-8.2)
[2016-12-21 12:02] LABS: ANISOCYTOSIS SLIGHT; BAND NEUTROPHILS 2 %; BASOPHILS % (MANUAL) 0 %; EOSINOPHILS % (MANUAL) 0 %; LYMPHOCYTES % (MANUAL) 7 %; NEUTROPHILS % (MANUAL) 90 %
[2016-12-21 12:05] LABS: TROPONIN I < 0.30 NG/ML (<0.30)
--- NOTE | 2016-12-21 12:16 | Diagnostic Imaging Report ---
EXAMINATION: Portable upright radiograph of the chest. INDICATION: Muscle spasm. Chest pain. FINDINGS: There is stable right perihilar consolidation, similar to 08/14/2016, which may relate to scarring. There is also scarring and surgical clips in the right suprahilar region adjacent to the mediastinum. There is no developing infiltrate or atelectasis. The heart size is normal. No effusion or pneumothorax. Cervical fusion hardware is seen. IMPRESSION: Stable right perihilar opacity which may relate to post treatment scarring. No acute process. Dictated by: Dictated on workstation # [id number]
[2016-12-21 12:39] LABS: BILIRUBIN,URINE NEGATIVE (NEGATIVE); KETONES,URINE NEGATIVE (NEGATIVE); LEUKOCYTE ESTERASE ,URINE 1+ (NEGATIVE); NITRITE,URINE NEGATIVE (NEGATIVE); PH,URINE 5 (5-9); PROTEIN,URINE 2+ (NEGATIVE); UROBILINOGEN,URINE NORMAL (NORMAL)
[2016-12-21 12:53] LABS: WBC,URINE 0-2 /HPF
[2016-12-21 14:25] VITALS: BP 96/54
== END 2016-12-21 14:25 | disposition home or self-care (01) ==
LOC: EDUNIT# 11:04 → ER 11:07
DX: R07.89 Other chest pain (principal); M54.6 Pain in thoracic spine; I48.2 Chronic atrial fibrillation; J44.9 Chronic obstructive pulmonary disease, unspecified; Z79.899 Other long term (current) drug therapy
CPT/HCPCS: 36415; 71010; 80053; 81000; 83690; 84484; 85007; 85027; 93005; 96361; 96374; 96375

== ENCOUNTER → 2017-01-17 | Outpatient (CLI) | payer MEDICARE, MEDICAID ==
[2017-01-17 12:24] LABS: THYROID STIMULATING HORMONE 0.85 UIU/ML (0.35-4.94)
== END ==
LOC: LAB 11:12
PROVIDERS: ATTEND Student in an Organized Health Care Education/Training Program
DX: R53.83 Other fatigue (principal); K59.00 Constipation, unspecified; Z11.59 Encounter for screening for other viral diseases
CPT/HCPCS: 36415; 80074; 82607; 84439; 84443; 86038; 86039

== ENCOUNTER → 2017-01-30 | Outpatient (CLI) | payer MEDICARE, MEDICAID ==
--- NOTE | 2017-01-30 10:19 | Diagnostic Imaging Report ---
PROCEDURE: CT chest without contrast. TECHNIQUE: Multiple contiguous axial images were obtained through the chest without the use of intravenous contrast. INDICATION: Lung cancer, right apical lung nodule. Study compared 09/12/2016. FINDINGS: Changes likely reflective of paramediastinal fibrosis in the medial right upper lung is a redemonstrated finding. Posterior to clips or fiducial markers, an area of increased parenchymal density is less solid than on prior measuring about 1.4 x 0.7 cm unchanged in dimensions when compared to the prior but appearing again less dense and only well seen when reviewed in lung windows. COPD as a chronic finding stable. No new pulmonary parenchymal abnormality. The left lung is clear. No pathological appearing hilar or mediastinal lymph nodes. No effusion or pneumothorax. No acute soft tissue or osseous chest wall pathology. Upper abdomen nonacute. 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 Right apical nodular density unchanged in dimensions but less dense than prior and more airspace in its opacity. No adverse development or suspicious finding. Dictated by: Dictated on workstation # [id number]
== END ==
LOC: RAD 08:57
PROVIDERS: ATTEND Internal Medicine Critical Care Medicine
DX: C34.91 Malignant neoplasm of unspecified part of right bronchus or lung (principal); R91.1 Solitary pulmonary nodule; Z90.2 Acquired absence of lung [part of]
CPT/HCPCS: 71250

== ENCOUNTER → 2017-05-15 | Outpatient (CLI) | payer MEDICARE, MEDICAID ==
[~2017-05-15] MED LIST changes: +ALBU0.63 IH; +ALBU18HF2 INH; +DILT240C53 PO; +FEXO-14 PO; +FEXO-46 PO; +FLUT16SP22 NS; +GABA-488 PO; +GUAI120016 PO; +IPRA3AMP IH; +MOME13HF INH; +MOME13HF2 IH; +NYST1000 PO; +SUCR1ORA5 PO; +SUCR1TAB36 PO; +SULF1TAB35 PO; +TERC45CR4 VG; +TIOT18CA2 IH; +TIOT4MIS2 IH
[2017-05-15 09:52] LABS: BASOPHILS % (AUTO) 0 % (0-10); EOSINOPHILS % (AUTO) 0 % (0-10); LYMPHOCYTES # (AUTO) 1.6 X 10^3 (1.0-4.0); LYMPHOCYTES % (AUTO) 20 % (12-44); MEAN CORPUSCULAR HEMOGLOBIN 33 PG (25-34); MEAN CORPUSCULAR HGB CONC 33 G/DL (32-36); MEAN CORPUSCULAR VOLUME 101 FL (80-99); MEAN PLATELET VOLUME 10.2 FL (7.4-10.4); MONOCYTES # (AUTO) 0.5 X 10^3 (0.0-1.0); MONOCYTES % (AUTO) 6 % (0-12); NEUTROPHILS # (AUTO) 5.9 X 10^3 (1.8-7.8); NEUTROPHILS % (AUTO) 74 % (42-75); PLATELET COUNT 243 10^3/uL (130-400); RED BLOOD COUNT 3.84 10^6/uL (4.35-5.85); RED CELL DISTRIBUTION WIDTH 14.8 % (10.0-14.5); WHITE BLOOD COUNT 7.9 10^3/uL (4.3-11.0)
[2017-05-15 10:12] LABS: ALANINE AMINOTRANSFERASE 16 U/L (0-55); ALBUMIN 4.1 GM/DL (3.2-4.5); ANION GAP 7 MMOL/L (5-14); ASPARTATE AMINO TRANSFERASE 10 U/L (5-34); BILIRUBIN,TOTAL 0.4 MG/DL (0.1-1.0); BLOOD UREA NITROGEN 12 MG/DL (7-18); BUN/CREATININE RATIO 17; CALCIUM 9.2 MG/DL (8.5-10.1); CARBON DIOXIDE 22 MMOL/L (21-32); CHLORIDE 110 MMOL/L (98-107); GFR ESTIMATED > 60; GLUCOSE 134 MG/DL (70-105); POTASSIUM 3.7 MMOL/L (3.6-5.0); SODIUM 139 MMOL/L (135-145); TOTAL PROTEIN 7.2 GM/DL (6.4-8.2)
--- NOTE | 2017-05-15 12:18 | Diagnostic Imaging Report ---
PROCEDURE: CT chest, abdomen, and pelvis with contrast. TECHNIQUE: Multiple contiguous axial images were obtained through the chest, abdomen, and pelvis after the administration of intravenous contrast. INDICATION: Lung cancer. FINDINGS: CT chest: There is suggestion of scarring seen in the right upper lobe with minimal nonspecific nodularity seen. There are metallic densities likely related to radiation fiducial markers in the right upper lobe. Also scarring is seen in the posterior perihilar region on the right side. The left lung base demonstrates subsegmental consolidation with nonspecific 1 cm nodule likely related to atelectasis. Background emphysema changes are seen. There is a stable 0.9 cm right paratracheal lymph node seen. The heart size is normal. No pericardial or pleural effusion. No axillary lymphadenopathy is seen. Bilateral breast implants are noted. The osseous structures demonstrate no destructive mass. CT abdomen and pelvis: The liver demonstrates a nonspecific hypodense lesion measuring 8 mm in the left hepatic lobe. The gallbladder, the spleen, the adrenal glands, and the pancreas appear unremarkable. There is an 8 mm hypodense lesion in the upper pole of the right kidney, too small to accurately characterize. The other similar lesions are seen in the inferior pole. No hydronephrosis. The abdominal aorta is normal in caliber. No paraaortic significantly enlarged lymph nodes are seen. There is no bowel obstruction. The uterus and adnexa appear unremarkable. The appendix appears unremarkable. There is no significant free fluid or fluid collection in the abdomen or pelvis. Tiny fat-containing umbilical hernia is seen. The osseous structures demonstrate degenerative changes in the lower lumbar spine and SI joints with no destructive mass. IMPRESSION: CT chest: 1. Stable consolidation in the right upper lobe and posterior perihilar region is likely related to scarring. 2. Subsegmental consolidation with nodular density in the medial aspect of the left lower lobe is favored to be atelectasis or focal pneumonitis. Continued followup recommended. 3. Emphysema. CT abdomen and pelvis: No evidence of metastasis. Dictated by: Dictated on workstation # [id number]
== END ==
LOC: RAD 09:38
PROVIDERS: ATTEND Family Medicine
DX: J43.9 Emphysema, unspecified; C34.90 Malignant neoplasm of unspecified part of unspecified bronchus or lung; R92.8 Other abnormal and inconclusive findings on diagnostic imaging of breast
CPT/HCPCS: 36415; 71260; 74177; 80053; 85025

== ENCOUNTER 2017-06-27 15:55 | Outpatient (RCR) | payer MEDICARE, MEDICAID ==
--- NOTE | 2017-06-13 10:50 | Diagnostic Imaging Report ---
INDICATION: COPD with history lung cancer. Shortness of breath x6 months.. TECHNIQUE: Two view chest 10:46 AM CORRELATION STUDY: 12/21/2016 FINDINGS: Surgical change with clips in the right suprahilar paramediastinal region with distortion and likely areas of scarring in this region present. The hilar irregularity appears unchanged. The left lung field with changes of COPD but otherwise clear. Heart size stable. Vasculature within normal limits. Surgical resection of the right sixth rib. Findings consistent with a bilateral breast implants. Cervical fusion hardware is present. IMPRESSION: 1. Relatively stable appearance about the chest with surgical change of the right hemithorax. Dictated by: Dictated on workstation # [id number]
[2017-06-13] MEDS: methylPREDNISolone 125 MG (Solu-MEDROL) VIAL IV SCH (10:55)
[2017-06-13] MEDS: cefTRIAXone 1 GM/NS 50 ML IVPB IV SCH ×2 (10:55)
[2017-06-13 11:25] VITALS: BP 116/77
[2017-06-14] MEDS: cefTRIAXone 1 GM/NS 50 ML IVPB IV SCH ×2 (11:50)
[2017-06-14] MEDS: methylPREDNISolone 125 MG (Solu-MEDROL) VIAL IV SCH (12:15)
[2017-06-14 12:30] VITALS: BP 115/85
[2017-06-15] MEDS: methylPREDNISolone 125 MG (Solu-MEDROL) VIAL IV SCH (09:49)
[2017-06-15] MEDS: cefTRIAXone 1 GM/NS 50 ML IVPB IV SCH ×2 (09:53)
[2017-06-15 10:30] VITALS: BP 111/81
[2017-06-16] MEDS: methylPREDNISolone 125 MG (Solu-MEDROL) VIAL IV SCH (09:43)
[2017-06-16] MEDS: cefTRIAXone 1 GM/NS 50 ML IVPB IV SCH ×2 (09:50)
[2017-06-16 10:26] VITALS: BP 124/74
[2017-06-17] MEDS: methylPREDNISolone 125 MG (Solu-MEDROL) VIAL IV SCH (12:51)
[2017-06-17] MEDS: cefTRIAXone 1 GM/NS 50 ML IVPB IV SCH ×2 (12:52)
[2017-06-17 13:21] VITALS: BP 95/63
[2017-06-18] MEDS: methylPREDNISolone 125 MG (Solu-MEDROL) VIAL IV SCH (13:20)
[2017-06-18 13:30] VITALS: BP 118/76
[2017-06-19] MEDS: methylPREDNISolone 125 MG (Solu-MEDROL) VIAL IV SCH (09:15)
[2017-06-19] MEDS: LEVOFLOXACIN 750 MG/150 ML IV 150 ML IV SCH (09:20)
[2017-06-19 10:47] VITALS: BP 126/88
[2017-06-20] MEDS: methylPREDNISolone 125 MG (Solu-MEDROL) VIAL IV SCH (13:30)
[2017-06-20] MEDS: LEVOFLOXACIN 750 MG/150 ML IV 150 ML IV SCH (13:30)
[2017-06-20 13:50] VITALS: BP 90/64
[~2017-06-27] VITALS: Ht 165.1 cm; Wt 93.0 kg
[~2017-06-27 15:55] MED LIST changes: -ALBU18HF2 INH; -DILT240C53 PO; -FEXO-46 PO; -FLUT16SP22 NS; -GABA-488 PO; -GUAI120016 PO; -IPRA3AMP IH; +LEVOFLOXACIN 750 MG/150 ML IV 150 ML IV ONE; -MOME13HF INH; -SUCR1ORA5 PO; -TERC45CR4 VG; -TIOT4MIS2 IH
[2017-06-27 16:00] VITALS: BP 102/58
[2017-07-09] MEDS ORDERED: DILT240C53 PO (13:52)
[2017-07-09] MEDS ORDERED: PRD20T PO (14:32)
[2017-07-09] MEDS ORDERED: CEFD300C3 PO (14:32)
[2017-07-25] MEDS ORDERED: GABA-488 PO (09:36)
[2017-07-25] MEDS ORDERED: FEXO-46 PO (09:36)
[2017-07-25] MEDS ORDERED: ALBU18HF2 INH (09:36)
[2017-07-25] MEDS ORDERED: GUAI120016 PO (09:36)
[2017-07-25] MEDS ORDERED: VARE1TAB22 PO (09:36)
[2017-07-25] MEDS ORDERED: TIOT4MIS2 IH (09:36)
[2017-07-25] MEDS ORDERED: FLUT16SP22 NS (09:36)
[2017-07-25] MEDS ORDERED: TERC45CR4 VG (09:36)
[2017-07-25] MEDS ORDERED: IPRA3AMP IH (09:36)
[2017-07-25] MEDS ORDERED: MOME13HF INH (09:36)
[2017-07-25] MEDS ORDERED: SUCR1ORA5 PO (09:36)
[2017-07-26] MEDS ORDERED: CEFD300C3 PO (10:33)
== END 2017-09-11 | disposition home or self-care (01) ==
LOC: SDC 15:55
PROVIDERS: ATTEND Internal Medicine Critical Care Medicine
DX: J44.1 Chronic obstructive pulmonary disease with (acute) exacerbation (principal); J18.0 Bronchopneumonia, unspecified organism; J30.9 Allergic rhinitis, unspecified; C34.2 Malignant neoplasm of middle lobe, bronchus or lung; Z90.2 Acquired absence of lung [part of]
CPT/HCPCS: 71020; 76937; 87070; 87077; 87186; 87205; 96365; 96374; 96375

== ENCOUNTER 2017-07-09 12:51 | Emergency (ER) | payer MEDICARE, MEDICAID ==
[~2017-07-09] VITALS: Ht 165.1 cm; Wt 96.2 kg
[~2017-07-09 12:51] MED LIST changes: -LEVOFLOXACIN 750 MG/150 ML IV 150 ML IV ONE
[2017-07-09 13:23] LABS: BASOPHILS % (AUTO) 0 % (0-10); EOSINOPHILS # (AUTO) 0.3 10^3/uL (0.0-0.3); EOSINOPHILS % (AUTO) 2 % (0-10); LYMPHOCYTES # (AUTO) 1.7 X 10^3 (1.0-4.0); LYMPHOCYTES % (AUTO) 13 % (12-44); MEAN CORPUSCULAR HEMOGLOBIN 35 PG (25-34); MEAN CORPUSCULAR HGB CONC 35 G/DL (32-36); MEAN CORPUSCULAR VOLUME 102 FL (80-99); MEAN PLATELET VOLUME 10.3 FL (7.4-10.4); MONOCYTES # (AUTO) 1.2 X 10^3 (0.0-1.0); MONOCYTES % (AUTO) 10 % (0-12); NEUTROPHILS # (AUTO) 9.6 X 10^3 (1.8-7.8); NEUTROPHILS % (AUTO) 75 % (42-75); PLATELET COUNT 262 10^3/uL (130-400); RED BLOOD COUNT 3.53 10^6/uL (4.35-5.85); RED CELL DISTRIBUTION WIDTH 14.9 % (10.0-14.5); WHITE BLOOD COUNT 12.8 10^3/uL (4.3-11.0)
--- NOTE | 2017-07-09 13:27 | ED Cough/URI ---
General Chief Complaint: Respiratory Problems Stated Complaint: SOB,TACHYCARDIA Nursing Triage Note: pt c/o increased soa, bloody sputum, tachycardia. sinus infection. unable to reach intercell connector placer. Source: patient Exam Limitations: no limitations History of Present Illness Time seen by provider: 13:25 Initial Comments To ER with a recurrence of her shortness of breath, bloody sputum, tachycardia, sinus infection. She was recently on Levaquin IV. She does see a intercell connector placer in [place] for COPD and asthma. She is not on antibiotics or steroids currently. She does have a nebulizer at home and states that she has uses about every 3 hours. She was seen here 2 days ago for the same. Sputum culture was done and this returned today showing Moraxella catarrhalis Timing/Duration: constant, getting worse Severity/Quality: productive cough, blood streaked sputum Associated Symptoms: cough, wheezing Allergies and Home Medications Allergies Coded Allergies: No Known Drug Allergies (Verified , 10/20/08) Home Medications Albuterol Sulfate 1 Puff Puff, 2 PUFF IH Q4H PRN for WHEEZING, (Reported) 1 PUFF = 90 MCG Albuterol Sulfate 0.63 Mg/3 Ml Vial.neb, 0.63 MG IH PRN, (Reported) Apixaban 5 Mg Tablet, 5 MG PO BID, (Reported) Diazepam 5 Mg Tablet, 2.5 MG PO TID PRN for ANXIETY, (Reported) Diltiazem HCl 240 Mg Cap.er.24h, 240 MG PO DAILY, (Reported) Diphenoxylate HCl/Atropine 1 Each Tablet, 1 EACH PO QID PRN for DIARRHEA, ( Reported) Estradiol 0.5 Mg Tablet, 0.5 MG PO DAILY, (Reported) Fexofenadine HCl 60 Mg Tablet, 60 MG PO DAILY, (Reported) Hydrocodone/Acetaminophen 1 Each Tablet, 1 EACH PO TID PRN for PAIN, (Reported) Medroxyprogesterone Acetate 2.5 Mg Tablet, 2.5 MG PO DAILY, (Reported) Mometasone/Formoterol 13 Gm Hfa.aer.ad, 2 PUFF IH BID, (Reported) Montelukast Sodium 10 Mg Tablet, 10 MG PO HS, (Reported) Nystatin 100,000 Unit/1 Ml Oral.susp, 100,000 UNIT PO QID, (Reported) Ondansetron 4 Mg Tab.rapdis, 4 MG PO Q4H PRN for NAUSEA/VOMITING, (Reported) Pantoprazole Sodium 40 Mg Tablet.dr, 40 MG PO DAILY, (Reported) Pravastatin Sodium 40 Mg Tablet, 40 MG PO DAILY, (Reported) Prednisone 20 Mg Tab, 20 MG PO DAILY, #11 (Reported) Sucralfate 1 Gm Tablet, 1 GM PO ACHS, (Reported) Tiotropium [place] 1 Inh Aerp, 1 INH IH DAILY, (Reported) Constitutional: see HPI, No chills EENTM: see HPI Respiratory: see HPI, cough, short of breath, wheezing Genitourinary: no symptoms reported Musculoskeletal: no symptoms reported Skin: no symptoms reported Psychiatric/Neurological: No Symptoms Reported Hematologic/Lymphatic: No Symptoms Reported Past Ahqtusq-Wiarff-Twsfzi Hx Patient Social History Alcohol Beverage of Choice: Beer, [place], Wine Type Used: Cigarettes 2nd Hand Smoke Exposure: Yes Recent Foreign Travel: No Contact w/Someone Who Travel: No Recent Infectious Disease Expo: No Recent Hopitalizations: No Immunizations Up To Date Tetanus Booster (TDap): Unknown Date of Pneumonia Vaccine: Oct 24, 2013 Date of Influenza Vaccine: Jun 24, 2017 Seasonal Allergies Seasonal Allergies: Yes Surgeries History of Surgeries: Yes (BUNIONECTOMY, NECK FUSION, BREAST IMPLANTS) Surgeries: Lobectomy, Tubal Ligation Respiratory History of Respiratory Disorde: Yes ( HX OF LUNG CA) Respiratory Disorders: Asthma, COPD Cardiovascular History of Cardiac Disorders: Yes Cardiac Disorders: Atrial Fibrillation Neurological History of Neurological Disord: No 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 System Hx 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 Disorders: Yes (PMB) Genitourinary History of Genitourinary Disor: No Gastrointestinal History of Gastrointestinal Di: Yes Gastrointestinal Disorders: Irritable Bowel Musculoskeletal History of Musculoskeletal Dis: Yes Musculoskeletal Disorders: Arthritis, Chronic Back Pain Endocrine History of Endocrine Disorders: No HEENT History of HEENT Disorders: No Cancer History of Cancer: Yes Cancer: Lung Psychosocial History of Psychiatric Problem: Yes Behavioral Health Disorders: Anxiety, Depression Integumentary History of Skin or Integumenta: No Blood Transfusions History of Blood Disorders: No Family Medical History Significant Family History: No Pertinent Family Hx Physical Exam Vital Signs Vital Sign - Last 12Hours 07/09/17 07/09/17 12:57 13:43 Temp 98.2 Pulse 107 Resp 24 B/P (MAP) 124/54 O2 Delivery Nasal Cannula Capillary Refill : Less Than 3 Seconds General Appearance: WD/WN Eyes: Bilateral Eye Normal Inspection, Bilateral Eye PERRL, Bilateral Eye EOMI HEENT: PERRL/EOMI, normal ENT inspection Neck: non-tender, full range of motion Respiratory: no respiratory distress, no accessory muscle use, decreased breath sounds, wheezing Cardiovascular: no murmur, other (heart rate 105 sinus) Gastrointestinal: normal bowel sounds, non tender, soft Neurologic/Psychiatric: alert, normal mood/affect Skin: normal color, warm/dry Progress/Results/Core Measures Results/Orders Lab Results Laboratory Tests Test 07/09/17 13:12 Range/Units White Blood Count 12.8 H 4.3-11.0 10^3/uL Red Blood Count 3.53 L 4.35-5.85 10^6/uL Hemoglobin 12.5 11.5-16.0 G/DL Hematocrit 36 35-52 % Mean Corpuscular Volume 102 H 80-99 FL Mean Corpuscular Hemoglobin 35 H 25-34 PG Mean Corpuscular Hemoglobin Concent 35 32-36 G/DL Red Cell Distribution Width 14.9 H 10.0-14.5 % Platelet Count 262 130-400 10^3/uL Mean Platelet Volume 10.3 7.4-10.4 FL Neutrophils (%) (Auto) 75 42-75 % Lymphocytes (%) (Auto) 13 12-44 % Monocytes (%) (Auto) 10 0-12 % Eosinophils (%) (Auto) 2 0-10 % Basophils (%) (Auto) 0 0-10 % Neutrophils # (Auto) 9.6 H 1.8-7.8 X 10^3 Lymphocytes # (Auto) 1.7 1.0-4.0 X 10^3 Monocytes # (Auto) 1.2 H 0.0-1.0 X 10^3 Eosinophils # (Auto) 0.3 0.0-0.3 10^3/uL Basophils # (Auto) 0.0 0.0-0.1 10^3/uL My Orders Orders - VIVIAN BARRERA APRN Cbc With Automated Diff (07/09/17 13:09) Saline Lock/Iv-Start (07/09/17 13:09) Chest Pa/Lat (2 View) (07/09/17 13:09) Saline Lock/Iv-Start (07/09/17 13:19) Methylprednisolone Sod Succ (Solu-Medrol (07/09/17 13:30) Albuterol/Ipra Inhalation Soln (Duoneb I (07/09/17 13:30) Ceftriaxone Injection (Rocephin Injectio (07/09/17 13:30) Svn Sm Volume Nebulizer Rt-Rfs (07/09/17 13:19) Medications Given in ED Current Medications Medications Dose Ordered Sig/Caitlin Route Start Time Stop Time Status Last Admin Dose Admin Albuterol/ Ipratropium 3 ml ONCE ONCE INH 07/09/17 13:30 07/09/17 13:31 DC 07/09/17 13:43 3 ML Ceftriaxone Sodium 1000 mg/ Sodium Chloride 50 ml @ 100 mls/hr ONCE ONCE IV 07/09/17 13:30 07/09/17 13:59 DC 07/09/17 13:50 100 MLS/HR Methylprednisolone Sodium Succinate 125 mg ONCE ONCE IVP 07/09/17 13:30 07/09/17 13:31 DC 07/09/17 13:50 125 MG Vital Signs/I&O Vital Sign - Last 12Hours 07/09/17 07/09/17 12:57 13:43 Temp 98.2 Pulse 107 Resp 24 B/P (MAP) 124/54 O2 Delivery Nasal Cannula Blood Pressure Mean: 77 Diagnostic Imaging Diagonstic Imaging: Xray Plain Films/CT/US/NM/MRI: chest Comments NAME: ROC NAYAK [facility] REC#: [id number] PT STATUS: REG ER : 1960 PHYSICIAN: VIVIAN BARRERA NAILHEAD OPERATOR ADMIT DATE: 07/09/17/ER Draft Date of Exam:07/09/17 CHEST PA/LAT (2 VIEW) PA and lateral views of the chest. INDICATION: Shortness of breath. FINDINGS: There are patchy left infrahilar and basilar infiltrates. There is scarring in the right hilum and surgical clips in the right suprahilar region. The heart size is normal. No significant effusion or pneumothorax. The mediastinum and sherrie appear unremarkable. Cervical fusion hardware is seen. IMPRESSION: Patchy left infrahilar and basilar infiltrates. Dictated on workstation # [id number] Dict: 07/09/17 1341 Trans: 07/09/17 1353 [facility] [place] [id number] Interpreted by: SUKUMAR OLIVEROS MD Electronically signed by: Departure Impression Impression: Primary Impression: COPD exacerbation Additional Impression: Pneumonia Disposition: 01 HOME, SELF-CARE Condition: Stable Departure-Patient Inst. Decision time for Depature: 14:21 Referrals: SHELLEY ROSENBERG DO (PCP/Family) Primary Care Physician Patient Instructions: Pneumonia, Adult (DC) Scripts Prednisone (Prednisone) 20 Mg Tab 40 MG PO DAILY, #8 TAB Prov: VIVIAN BARRERA NAILHEAD OPERATOR 07/09/17 Cefdinir (Cefdinir) 300 Mg Capsule 300 MG PO BID, #14 CAP Prov: VIVIAN BARRERA APRN 07/09/17 VIVIAN BARRERA APRN Jul 09, 2017 13:27
[2017-07-09] MEDS ORDERED: RT-ALBUTEROL/IPRATROPIUM 3 ML (DUONEB) VIAL INH ONE (13:30)
[2017-07-09] MEDS ORDERED: cefTRIAXone INJECTION 1,000 MG in NS (IVPB) 50 ML IV ONE (13:30)
[2017-07-09] MEDS ORDERED: methylPREDNISolone 125 MG (Solu-MEDROL) VIAL IVP ONE (13:30)
[2017-07-09] MEDS ORDERED: DILT240C53 PO (13:52)
--- NOTE | 2017-07-09 13:53 | Diagnostic Imaging Report ---
PA and lateral views of the chest. INDICATION: Shortness of breath. FINDINGS: There are patchy left infrahilar and basilar infiltrates. There is scarring in the right hilum and surgical clips in the right suprahilar region. The heart size is normal. No significant effusion or pneumothorax. The mediastinum and sherrie appear unremarkable. Cervical fusion hardware is seen. IMPRESSION: Patchy left infrahilar and basilar infiltrates. Dictated by: Dictated on workstation # [id number]
[2017-07-09] MEDS ORDERED: PRD20T PO (14:32)
[2017-07-09] MEDS ORDERED: CEFD300C3 PO (14:32)
[2017-07-09 14:36] VITALS: BP 134/96
== END 2017-07-09 14:36 | disposition home or self-care (01) ==
LOC: EDUNIT# 12:51 → ER 12:53
DX: J44.1 Chronic obstructive pulmonary disease with (acute) exacerbation (principal); J18.9 Pneumonia, unspecified organism; I48.91 Unspecified atrial fibrillation; M19.90 Unspecified osteoarthritis, unspecified site; F41.9 Anxiety disorder, unspecified; F32.9 Major depressive disorder, single episode, unspecified; Z87.19 Personal history of other diseases of the digestive system; Z79.01 Long term (current) use of anticoagulants; Z77.22 Contact with and (suspected) exposure to environmental tobacco smoke (acute) (chronic); Z98.51 Tubal ligation status; Z90.2 Acquired absence of lung [part of]; Z85.118 Personal history of other malignant neoplasm of bronchus and lung
CPT/HCPCS: 36415; 71020; 85025; 93005; 94640

== ENCOUNTER → 2017-07-16 | Outpatient (CLI) | payer MEDICARE, MEDICAID ==
[~2017-07-16] MED LIST changes: +DILT240C53 PO
== END ==
LOC: CARD 10:41
PROVIDERS: ATTEND Internal Medicine Cardiovascular Disease
DX: R06.09 Other forms of dyspnea (principal); I48.0 Paroxysmal atrial fibrillation; R00.2 Palpitations; J43.8 Other emphysema; Z72.0 Tobacco use; Z85.118 Personal history of other malignant neoplasm of bronchus and lung
CPT/HCPCS: 93306

== ENCOUNTER 2017-07-24 11:15 | Inpatient (IN) | payer MEDICARE, MEDICAID ==
[~2017-07-24] VITALS: Ht 167.6 cm; Wt 90.7 kg
[2017-07-24] MEDS ORDERED: LACTATED RINGERS 1,000 ML IV ONE ×2 (11:20→11:28)
[2017-07-24 11:31] LABS: BASOPHILS % (AUTO) 0 % (0-10); EOSINOPHILS % (AUTO) 0 % (0-10); LYMPHOCYTES # (AUTO) 1.5 X 10^3 (1.0-4.0); LYMPHOCYTES % (AUTO) 6 % (12-44); MEAN CORPUSCULAR HEMOGLOBIN 35 PG (25-34); MEAN CORPUSCULAR HGB CONC 35 G/DL (32-36); MEAN CORPUSCULAR VOLUME 101 FL (80-99); MEAN PLATELET VOLUME 10.2 FL (7.4-10.4); MONOCYTES % (AUTO) 4 % (0-12); NEUTROPHILS # (AUTO) 21.2 X 10^3 (1.8-7.8); NEUTROPHILS % (AUTO) 90 % (42-75); PLATELET COUNT 212 10^3/uL (130-400); RED BLOOD COUNT 3.82 10^6/uL (4.35-5.85); WHITE BLOOD COUNT 23.7 10^3/uL (4.3-11.0)
--- NOTE | 2017-07-24 11:32 | ED Back Pain ---
General Stated Complaint: CP,BACK PAIN Source of Information: Patient, Old Records Exam Limitations: No Limitations History of Present Illness Time Seen by Provider: 11:24 Initial Comments Patient has ER by private conveyance with chief complaint that She is having some pressure in her chest, back pain that is like muscle spasms intermittent short sharp pains that also recurring in her legs. She was recently discharged about a 10 days ago from [facility] where she was being taken care for COPD exacerbation and pneumonia. She was not sent home on any antibiotics she received about 5 days of inpatient antibiotics for pneumonia. She was sent home on 2 or 3 days more of steroids which she took but has been off them for over a week now. She's been told the past she has hypertension and high blood heart rate probably due to the steroids. She was told to follow-up outpatient with a CBC and kidney function but because of the holidays has not been able to get that done yet through her primary care office. She also has a history of atrial fibrillation and is on Eliquis. She's not having chest pain but she has had some abdominal pain in the right lower quadrant at times. She's having no nausea , vomiting, diarrhea. She has had mild shortness of breath and a cough but this is not new and not worsening. She's had no fevers or chills. No rash. She feels bloated and constipated. She says she takes probiotics regularly. She had a little nausea yesterday. Patient had a right lobectomy for lung cancer in 2008. She had a recurrent spot in the right upper lobe that was treated by gamma knife. In 2013 and then subsequent to that ended up with radiation pneumonitis that was treated successfully. Her most recent hospital station at [place] she was told that the Pseudomonas was not growing out of her cultures anymore however she had Moraxella and that' s why they downgraded her antibiotics from vancomycin to azithromycin. She says she met with infectious disease doctor while inpatient. Allergies and Home Medications Allergies Coded Allergies: No Known Drug Allergies (Verified , 10/20/08) Home Medications Albuterol Sulfate 1 Puff Puff, 2 PUFF IH Q4H PRN for WHEEZING, (Reported) 1 PUFF = 90 MCG Albuterol Sulfate 0.63 Mg/3 Ml Vial.neb, 0.63 MG IH PRN, (Reported) Apixaban 5 Mg Tablet, 5 MG PO BID, (Reported) Cefdinir 300 Mg Capsule, 300 MG PO BID, #14 Prescribed by: VIVIAN BARRERA on 07/09/17 1432 Diazepam 5 Mg Tablet, 2.5 MG PO TID PRN for ANXIETY, (Reported) Diltiazem HCl 240 Mg Cap.er.24h, 240 MG PO DAILY, (Reported) Diphenoxylate HCl/Atropine 1 Each Tablet, 1 EACH PO QID PRN for DIARRHEA, ( Reported) Estradiol 0.5 Mg Tablet, 0.5 MG PO DAILY, (Reported) Fexofenadine HCl 60 Mg Tablet, 60 MG PO DAILY, (Reported) Hydrocodone/Acetaminophen 1 Each Tablet, 1 EACH PO TID PRN for PAIN, (Reported) Medroxyprogesterone Acetate 2.5 Mg Tablet, 2.5 MG PO DAILY, (Reported) Mometasone/Formoterol 13 Gm Hfa.aer.ad, 2 PUFF IH BID, (Reported) Montelukast Sodium 10 Mg Tablet, 10 MG PO HS, (Reported) Nystatin 100,000 Unit/1 Ml Oral.susp, 100,000 UNIT PO QID, (Reported) Ondansetron 4 Mg Tab.rapdis, 4 MG PO Q4H PRN for NAUSEA/VOMITING, (Reported) Pantoprazole Sodium 40 Mg Tablet.dr, 40 MG PO DAILY, (Reported) Pravastatin Sodium 40 Mg Tablet, 40 MG PO DAILY, (Reported) Prednisone 20 Mg Tab, 40 MG PO DAILY, #8 Prescribed by: VIVIAN BARRERA on 07/09/17 1432 Sucralfate 1 Gm Tablet, 1 GM PO ACHS, (Reported) Tiotropium [place] 1 Inh Aerp, 1 INH IH DAILY, (Reported) Constitutional: No chills, No diaphoresis, No fever, malaise EENTM: No ear discharge, No hearing loss Respiratory: cough, phlegm, wheezing (occ) Cardiovascular: see HPI, No chest pain, No edema Gastrointestinal: No abdominal pain, No constipation, No diarrhea, No nausea, No vomiting Genitourinary: No discharge, No dysuria : No Musculoskeletal: see HPI, back pain, No joint pain, muscle cramps Skin: No pruritus, No rash Psychiatric/Neurological: Denies Headache, Denies Numbness, Denies Paresthesia Past Kfnnouc-Skjrdk-Glycja Hx Patient Social History Alcohol Use: Regular Use Alcohol Beverage of Choice: Beer, Dane, Wine Recreational Drug Use: No Smoking Status: Current Someday Smoker Type Used: Cigarettes (1-2 cig per day) 2nd Hand Smoke Exposure: Yes Recent Foreign Travel: No Contact w/Someone Who Travel: No Recent Hopitalizations: No Immunizations Up To Date Tetanus Booster (TDap): Unknown Date of Pneumonia Vaccine: Oct 24, 2013 Date of Influenza Vaccine: Jun 24, 2017 Seasonal Allergies Seasonal Allergies: Yes Surgeries History of Surgeries: Yes (BUNIONECTOMY, NECK FUSION, BREAST IMPLANTS) Surgeries: Lobectomy, Tubal Ligation Respiratory History of Respiratory Disorde: Yes ( HX OF LUNG CA) Respiratory Disorders: Asthma, COPD Cardiovascular History of Cardiac Disorders: Yes Cardiac Disorders: Atrial Fibrillation Neurological History of Neurological Disord: No 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 System Hx 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 Disorders: Yes (PMB) Genitourinary History of Genitourinary Disor: No Gastrointestinal History of Gastrointestinal Di: Yes Gastrointestinal Disorders: Irritable Bowel Musculoskeletal History of Musculoskeletal Dis: Yes Musculoskeletal Disorders: Arthritis, Chronic Back Pain Endocrine History of Endocrine Disorders: No HEENT History of HEENT Disorders: No Cancer History of Cancer: Yes Cancer: Lung Psychosocial History of Psychiatric Problem: Yes Behavioral Health Disorders: Anxiety, Depression Integumentary History of Skin or Integumenta: No Blood Transfusions History of Blood Disorders: No Family Medical History Significant Family History: No Pertinent Family Hx Physical Exam Vital Signs Vital Sign - Last 12Hours 07/24/17 11:15 Temp 98.4 Pulse 138 Resp 20 B/P (MAP) 123/82 Pulse Ox 94 Capillary Refill : General Appearance: WD/WN, Mild Distress HEENT: PERRL/EOMI, TMs Normal, Normal ENT Inspection, Pharynx Normal Neck: Full Range of Motion, Normal Inspection, Supple Cardiovascular: Regular Rate, Rhythm, No Edema, No Murmur, Normal Peripheral Pulses, Tachycardia Respiratory: Chest Non Tender, Lungs Clear, Normal Breath Sounds Gastrointestinal: Normal Bowel Sounds, Non Tender, Soft Extremity: Normal Capillary Refill, Normal Inspection, Non Tender Neurologic/Psychiatric: Alert, Oriented x3, No Motor/Sensory Deficits Skin: Normal Color, Warm/Dry Progress/Results/Core Measures Results/Orders Lab Results Laboratory Tests Test 07/24/17 11:20 07/24/17 12:05 Range/Units White Blood Count 23.7 H 4.3-11.0 10^3/uL Red Blood Count 3.82 L 4.35-5.85 10^6/uL Hemoglobin 13.4 11.5-16.0 G/DL Hematocrit 38 35-52 % Mean Corpuscular Volume 101 H 80-99 FL Mean Corpuscular Hemoglobin 35 H 25-34 PG Mean Corpuscular Hemoglobin Concent 35 32-36 G/DL Red Cell Distribution Width 15.0 H 10.0-14.5 % Platelet Count 212 130-400 10^3/uL Mean Platelet Volume 10.2 7.4-10.4 FL Neutrophils (%) (Auto) 90 H 42-75 % Lymphocytes (%) (Auto) 6 L 12-44 % Monocytes (%) (Auto) 4 0-12 % Eosinophils (%) (Auto) 0 0-10 % Basophils (%) (Auto) 0 0-10 % Neutrophils # (Auto) 21.2 H 1.8-7.8 X 10^3 Lymphocytes # (Auto) 1.5 1.0-4.0 X 10^3 Monocytes # (Auto) 1.0 0.0-1.0 X 10^3 Eosinophils # (Auto) 0.0 0.0-0.3 10^3/uL Basophils # (Auto) 0.0 0.0-0.1 10^3/uL Neutrophils % (Manual) 90 % Lymphocytes % (Manual) 5 % Monocytes % (Manual) 3 % Band Neutrophils 2 % Macrocytosis SLIGHT Stomatocytes SLIGHT Prothrombin Time 14.8 H 12.2-14.7 SEC INR Comment 1.2 0.8-1.4 Activated Partial Thromboplast Time 36 H 24-35 SEC Sodium Level 135 135-145 MMOL/L Potassium Level 4.0 3.6-5.0 MMOL/L Chloride Level 101 98-107 MMOL/L Carbon Dioxide Level 25 21-32 MMOL/L Anion Gap 9 5-14 MMOL/L Blood Urea Nitrogen 9 7-18 MG/DL Creatinine 0.78 0.60-1.30 MG/DL Estimat Glomerular Filtration Rate > 60 BUN/Creatinine Ratio 12 Glucose Level 135 H 70-105 MG/DL Lactic Acid Level 1.70 0.50-2.00 MMOL/L Calcium Level 9.6 8.5-10.1 MG/DL Magnesium Level 1.7 L 1.8-2.4 MG/DL Total Bilirubin 1.0 0.1-1.0 MG/DL Aspartate Amino Transf (AST/SGOT) 16 5-34 U/L Alanine Aminotransferase (ALT/SGPT) 39 0-55 U/L Alkaline Phosphatase 63 40-136 U/L Myoglobin 23.7 10.0-92.0 NG/ML Troponin I < 0.30 <0.30 NG/ML Total Protein 7.7 6.4-8.2 GM/DL Albumin 4.2 3.2-4.5 GM/DL Urine Color YELLOW Urine Clarity CLEAR Urine pH 7 5-9 Urine Specific [place] 1.005 L 1.016-1.022 Urine Protein NEGATIVE NEGATIVE Urine Glucose (UA) NEGATIVE NEGATIVE Urine Ketones NEGATIVE NEGATIVE Urine Nitrite NEGATIVE NEGATIVE Urine Bilirubin NEGATIVE NEGATIVE Urine Urobilinogen NORMAL NORMAL MG/DL Urine Leukocyte Esterase NEGATIVE NEGATIVE Urine RBC (Auto) 4+ H NEGATIVE Urine RBC NONE /HPF Urine WBC NONE /HPF Urine Squamous Epithelial Cells 0-2 /HPF Urine Crystals NONE /LPF Urine Bacteria NEGATIVE /HPF Urine Casts NONE /LPF Urine Mucus NEGATIVE /LPF Urine Culture Indicated NO My Orders Orders - JESUS DUBON Cbc With Automated Diff (07/24/17 11:20) Magnesium (07/24/17 11:20) Chest 1 View, Ap/Pa Only (07/24/17 11:20) Ekg Tracing (07/24/17 11:20) Cardiac Profile 1 (07/24/17 11:20) Comprehensive Metabolic Panel (07/24/17 11:20) Myoglobin Serum (07/24/17 11:20) Protime With Inr (07/24/17 11:20) Partial Thromboplastin Time (07/24/17 11:20) O2 (07/24/17 11:20) Monitor-Rhythm Ecg Trace Only (07/24/17 11:20) Lipid Panel (07/25/17 06:00) Saline Lock/Iv-Start (07/24/17 11:20) Lactic Acid Analyzer (07/24/17 11:28) Blood Culture (07/24/17 11:28) Sputum Culture (07/24/17 11:28) Ua Culture If Indicated (07/24/17 11:28) O2 (07/24/17 11:28) Saline Lock/Iv-Start (07/24/17 11:28) Saline Lock/Iv-Start (07/24/17 11:28) Vital Signs Adult Sepsis Patie Q1H (07/24/17 11:28) Remove Rings In Anticipation O (07/24/17 11:28) Lactated Ringers (Lr 1000 Ml Iv Solution (07/24/17 11:28) Lactated Ringers (Lr 1000 Ml Iv Solution (07/24/17 11:20) Manual Differential (07/24/17 11:20) Ct Abdomen/Pelvis W (07/24/17 13:12) Iohexol Injection (Omnipaque 350 Mg/Ml 1 (07/24/17 13:30) Sodium Chloride Flush (Catheter Flush Sy (07/24/17 13:30) Piperacillin Sodium/Tazobactam (Zosyn Vi (07/24/17 14:15) Medications Given in ED Current Medications Medications Dose Ordered Sig/Caitlin Route Start Time Stop Time Status Last Admin Dose Admin Iohexol 100 ml ONCE ONCE IV 07/24/17 13:30 07/24/17 13:31 DC 07/24/17 13:36 100 ML Lactated Ringer's 1,000 ml @ 0 mls/hr Q0M ONCE IV 07/24/17 11:28 07/24/17 11:30 DC 07/24/17 11:38 1,000 MLS/HR Lactated Ringer's 1,000 ml @ ud STK-MED ONCE IV 07/24/17 11:20 07/24/17 11:30 DC 07/24/17 11:30 1,000 MLS/HR Piperacillin Sod/ Tazobactam Sod 4.5 gm/Sodium Chloride 100 ml @ 200 mls/hr ONCE ONCE IV 07/24/17 14:15 07/24/17 14:44 DC 07/24/17 14:35 200 MLS/HR Vital Signs/I&O Vital Sign - Last 12Hours 07/24/17 11:15 Temp 98.4 Pulse 138 Resp 20 B/P (MAP) 123/82 Pulse Ox 94 Intake and Output 07/25/17 00:00 Intake Total 2000 ml Balance 2000 ml Progress Note : Time: 12:53 Progress Note She has worsening leukocytosis since the 10th, 19 days ago. She is tachycardic and not in atrial fibrillation. Her leukocytosis is 23,000 and probably not explained by steroids at this point as she's been off for about a week. He'll be reasonable to scan her abdomen and continue looking for a source of her infection especially given her recent nausea and abdominal fleeting pains.. We will also get a sputum culture. ECG Initial ECG Impression Date: Jul 24, 2017 Initial ECG Impression Time: 11:19 Initial ECG Rate: 130 Initial ECG Rhythm: S.Tach Initial ECG Intervals: Normal (152) Initial ECG Impression: Nonspecific Changes (sinus tachycardia) Initial ECG Comparisson: Unchanged (07/05/17) Comment Sinus tachycardia without a defibrillation, ST changes. Diagnostic Imaging Diagonstic Imaging: Xray Plain Films/CT/US/NM/MRI: chest Comments VIA [facility]. [place], [place] NAME: ROC NAYAK [facility] REC#: [id number] PT STATUS: REG ER : 1960 PHYSICIAN: JESUS DUBON MD ADMIT DATE: 07/24/17/ER Draft Date of Exam:07/24/17 CHEST 1 VIEW, AP/PA ONLY EXAMINATION: Portable upright radiograph of the chest. INDICATION: Shortness of breath. FINDINGS: The lungs are hyperinflated with minimal left basilar atelectasis seen. This is improved compared to 07/09/2017. No effusion or pneumothorax. The heart size is mildly enlarged. The mediastinum and sherrie appear unremarkable. Postsurgical changes and scarring in the right perihilar region is again noted with surgical clips in the right suprahilar region seen. Cervical spine fusion hardware is noted. IMPRESSION: Minimal left basilar atelectasis. Right perihilar scarring and postsurgical changes. Dictated on workstation # [id number] Dict: 07/24/17 1149 Trans: 07/24/17 1159 JAVIER [id number] Interpreted by: SUKUMAR OLIVEROS MD Electronically signed by: Reviewed: Reviewed by Me Departure Communication (Admissions) Time/Spoke to Admitting Phy: 14:[address] Barcenas and discussed lab imaging and findings as well as treatment plan with vancomycin and Zosyn. Discussed recent hospitalization at [place], [place]. She recommends consultation with Dr. Armando and see if he is okay with the patient to go to the floor. Time/Spoke to Consulting Phy: 14:38 Communication/Consulting Dr. Armando: Discussed lab imaging and findings. He is okay with going to the floor. He would recommend the antibiotics cefepime, vancomycin and Levaquin and he will reevaluate her in the morning. He does not want plan a bronchoscopy at this time. He will see the patient in the morning. Impression Impression: Primary Impression: Pneumonia Qualified Codes: J18.1 - Lobar pneumonia, unspecified organism Additional Impression: Sepsis Qualified Codes: A41.9 - Sepsis, unspecified organism Disposition: ADMITTED INPATIENT Condition: Stable Admissions Decision to Admit Reason: Admit from ER (General) Decision to Admit/Date: Jul 24, 2017 Time/Decision to Admit Time: 14:39 Departure-Patient Inst. Referrals: SHELLEY ROSENBERG DO (PCP/Family) Primary Care Physician Copy Copies To 1: ANDIE ARMANDO DO Copies To 2: JOSE DANIEL BARCENAS TITUS J Jul 24, 2017 11:32
[2017-07-24 11:42] LABS: INR 1.2 (0.8-1.4); PROTHROMBIN TIME PATIENT 14.8 SEC (12.2-14.7)
[2017-07-24 11:50] LABS: ALANINE AMINOTRANSFERASE 39 U/L (0-55); ALBUMIN 4.2 GM/DL (3.2-4.5); ANION GAP 9 MMOL/L (5-14); ASPARTATE AMINO TRANSFERASE 16 U/L (5-34); BLOOD UREA NITROGEN 9 MG/DL (7-18); BUN/CREATININE RATIO 12; CALCIUM 9.6 MG/DL (8.5-10.1); CARBON DIOXIDE 25 MMOL/L (21-32); CHLORIDE 101 MMOL/L (98-107); CREATININE SERUM 0.78 MG/DL (0.60-1.30); GFR ESTIMATED > 60; GLUCOSE 135 MG/DL (70-105); MAGNESIUM 1.7 MG/DL (1.8-2.4); SODIUM 135 MMOL/L (135-145); TOTAL PROTEIN 7.7 GM/DL (6.4-8.2)
[2017-07-24 11:56] LABS: MYOGLOBIN SERUM 23.7 NG/ML (10.0-92.0)
--- NOTE | 2017-07-24 12:00 | Diagnostic Imaging Report ---
EXAMINATION: Portable upright radiograph of the chest. INDICATION: Shortness of breath. FINDINGS: The lungs are hyperinflated with minimal left basilar atelectasis seen. This is improved compared to 07/09/2017. No effusion or pneumothorax. The heart size is mildly enlarged. The mediastinum and sherrie appear unremarkable. Postsurgical changes and scarring in the right perihilar region is again noted with surgical clips in the right suprahilar region seen. Cervical spine fusion hardware is noted. IMPRESSION: Minimal left basilar atelectasis. Right perihilar scarring and postsurgical changes. Dictated by: Dictated on workstation # [id number]
[2017-07-24 12:13] LABS: BILIRUBIN,URINE NEGATIVE (NEGATIVE); KETONES,URINE NEGATIVE (NEGATIVE); LEUKOCYTE ESTERASE ,URINE NEGATIVE (NEGATIVE); NITRITE,URINE NEGATIVE (NEGATIVE); PH,URINE 7 (5-9); PROTEIN,URINE NEGATIVE (NEGATIVE); UROBILINOGEN,URINE NORMAL (NORMAL)
[2017-07-24 12:23] LABS: BAND NEUTROPHILS 2 %; LYMPHOCYTES % (MANUAL) 5 %; NEUTROPHILS % (MANUAL) 90 %
[2017-07-24 12:24] LABS: SQUAMOUS EPITHELIAL CELL,UR 0-2 /HPF
[2017-07-24 12:24] LABS: STOMATOCYTES SLIGHT
[2017-07-24] MEDS ORDERED: CATHETER FLUSH 10 ML SYR IV PRN ×2 (13:30→17:00)
[2017-07-24] MEDS ORDERED: IOHEXOL 350 MG/ML 100 ML (OMNIPAQUE 350) VIAL IV ONE (13:30)
--- NOTE | 2017-07-24 14:05 | Diagnostic Imaging Report ---
PROCEDURE: CT abdomen and pelvis with contrast. TECHNIQUE: Multiple contiguous axial images were obtained through the abdomen and pelvis after administration of intravenous contrast. INDICATION: History of lung cancer. Leukocytosis. FINDINGS: There is left lower lobe consolidation with air bronchogram, suggestive of pneumonia. A left hepatic lobe cyst is similar to 05/15/2017. The gallbladder demonstrates no calcified stones and no wall thickening. The pancreas and adrenal glands appear unremarkable. The spleen is normal in size. The kidneys demonstrate symmetric enhancement and contrast excretion. No hydronephrosis. There is a hypodense lesion in the upper pole of the right kidney, favored to be a cyst. The uterus and adnexa appear grossly unremarkable. The urinary bladder appears unremarkable. There is no bowel obstruction. No significant free fluid or fluid collection in the abdomen or pelvis is seen. The abdominal aorta is normal in caliber. No periaortic significantly enlarged lymph node is seen. The appendix appears normal. The osseous structures demonstrate degenerative changes in the lower lumbar spine. There are bilateral degenerative changes with vacuum phenomenon seen in the SI joints. IMPRESSION: Consolidation in the medial aspect of the left lung base is suggestive of pneumonia. The findings were discussed with Dr. Paulino at the time of dictation. Dictated by: Dictated on workstation # [id number]
[2017-07-24] MEDS ORDERED: PIPERACILLIN SODIUM/TAZOBACTAM 4.5 GM in NS (IVPB) 100 ML IV ONE (14:15)
[2017-07-24 16:00] VITALS: BP 100/69
[2017-07-24 16:07] VITALS: BP 123/82
[2017-07-24] MEDS ORDERED: RT-ALBUTEROL SULF 2.5 MG/3 ML PRE-MIX VIAL IH PRN (16:15)
[2017-07-24] MEDS ORDERED: ONDANSETRON 4 MG/2 ML (SDV) Z0FRAN IV PRN (17:00)
[2017-07-24] MEDS: NS IV 1000 ML 1,000 ML IV SCH (17:16)
[2017-07-24] MEDS: CEFEPIME 2 GM/NS 50 ML IVPB IV SCH ×2 (17:17)
[2017-07-24] MEDS: MAGNESIUM OXIDE (MAG-OX)400 MG TAB PO SCH ×2 (17:19→20:20)
[2017-07-24] MEDS: ACETAMINOPHEN 500 MG TAB (TYLENOL) PO PRN (17:19)
[2017-07-24] MEDS: LEVOFLOXACIN 750 MG/D5W 150 ML PRE-MIX IV SCH (17:19)
[2017-07-24] MEDS ORDERED: VANCOMYCIN 2000 MG/NS 500 ML IVPB IV NR ×2 (18:00)
[2017-07-24] MEDS: RT-ALBUTEROL SULF 2.5 MG/3 ML PRE-MIX VIAL IH SCH ×2 (18:44→21:58)
[2017-07-24 20:15] VITALS: BP 109/70
[2017-07-24] MEDS ORDERED: POLYETHYLENE GLYCOL 17 GM (MIRALAX) PACK PO PRN (20:15)
[2017-07-24] MEDS: APIXABAN 5 MG (ELIQUIS) TABLET PO SCH (20:20)
[2017-07-24] MEDS: RT-ADVAIR HFA 115/21 MCG PER PUFF IH SCH (21:58)
[2017-07-25 00:05] VITALS: BP 105/65
[2017-07-25] MEDS: RT-ALBUTEROL/IPRATROPIUM 3 ML (DUONEB) VIAL INH SCH ×6 (02:00→22:28)
[2017-07-25] MEDS ORDERED: RT-ALBUTEROL/IPRATROPIUM 3 ML (DUONEB) VIAL INH PRN (02:15)
[2017-07-25 05:00] VITALS: BP 112/61
[2017-07-25] MEDS: CEFEPIME 2 GM/NS 50 ML IVPB IV SCH ×4 (05:12→16:47)
[2017-07-25] MEDS: NS IV 1000 ML 1,000 ML IV SCH ×2 (05:12→10:42)
[2017-07-25] MEDS ORDERED: VANCOMYCIN 1500 MG/NS 500 ML IVPB IV SCH ×2 (06:00)
[2017-07-25] MEDS: ACETAMINOPHEN 500 MG TAB (TYLENOL) PO PRN (06:14)
[2017-07-25 06:24] LABS: CHOLESTEROL 160 MG/DL (< 200); DIRECT LDL 103 MG/DL (1-129); TRIGLYCERIDES 100 MG/DL (<150); VLDL CHOLESTEROL 20 MG/DL (5-40)
[2017-07-25 08:00] VITALS: BP 97/62
--- NOTE | 2017-07-25 08:29 | Pulmonary Consultation ---
History of Present Illness History of Present Illness Date of Consultation 07/25/17 08:24 Time Seen by Provider: 08:24 Date of Admission History of Present Illness 56yo pt with recent hospitalization at [facility] and discharged 10days ago secondary to COPDAE and pneumonia presented to ED secondary to chest pressure and back pain. She received 5days of IV Abx while in the hospital and no home Abx. No fever, NS, or chills. Pt had a lovectomy secondary to lung cancer in 2008. Recurrent nodule was treated with gamma knife in 2013. Pt was told she had pseudomonas during her recent [place] hospitalization. I am consulted for pulmonary management. Allergies and Home Medications Allergies Coded Allergies: No Known Drug Allergies (Verified , 07/24/17) Home Medications Albuterol Sulfate 1 Puff Puff, 2 PUFF IH Q4H PRN for WHEEZING, (Reported) 1 PUFF = 90 MCG Albuterol Sulfate 0.63 Mg/3 Ml Vial.neb, 0.63 MG IH PRN, (Reported) Apixaban 5 Mg Tablet, 5 MG PO BID, (Reported) Cefdinir 300 Mg Capsule, 300 MG PO BID, #14 Prescribed by: VIVIAN BARRERA on 07/09/17 1432 Diazepam 5 Mg Tablet, 2.5 MG PO TID PRN for ANXIETY, (Reported) Diltiazem HCl 240 Mg Cap.er.24h, 240 MG PO DAILY, (Reported) Diphenoxylate HCl/Atropine 1 Each Tablet, 1 EACH PO QID PRN for DIARRHEA, ( Reported) Estradiol 0.5 Mg Tablet, 0.5 MG PO DAILY, (Reported) Fexofenadine HCl 60 Mg Tablet, 60 MG PO DAILY, (Reported) Hydrocodone/Acetaminophen 1 Each Tablet, 1 EACH PO TID PRN for PAIN, (Reported) Medroxyprogesterone Acetate 2.5 Mg Tablet, 2.5 MG PO DAILY, (Reported) Mometasone/Formoterol 13 Gm Hfa.aer.ad, 2 PUFF IH BID, (Reported) Montelukast Sodium 10 Mg Tablet, 10 MG PO HS, (Reported) Nystatin 100,000 Unit/1 Ml Oral.susp, 100,000 UNIT PO QID, (Reported) Ondansetron 4 Mg Tab.rapdis, 4 MG PO Q4H PRN for NAUSEA/VOMITING, (Reported) Pantoprazole Sodium 40 Mg Tablet.dr, 40 MG PO DAILY, (Reported) Pravastatin Sodium 40 Mg Tablet, 40 MG PO DAILY, (Reported) Prednisone 20 Mg Tab, 40 MG PO DAILY, #8 Prescribed by: VIVIAN BARRERA on 07/09/17 1432 Sucralfate 1 Gm Tablet, 1 GM PO ACHS, (Reported) Tiotropium [place] 1 Inh Aerp, 1 INH IH DAILY, (Reported) Past Tbslghc-Gfzgnt-Ieipki Hx Patient Social History Alcohol Use: Regular Use Alcohol Beverage of Choice: Beer, [place] Recreational Drug Use: No Smoking Status: Current Someday Smoker Type Used: Cigarettes 2nd Hand Smoke Exposure: Yes Recent Foreign Travel: No Contact w/Someone Who Travel: No Recent Infectious Disease Expo: No Recent Hopitalizations: Yes (DUANE RAGLAND) Physical Abuse: No Sexual Abuse: No Immunizations Up To Date Tetanus Booster (TDap): Unknown Date of Pneumonia Vaccine: Oct 24, 2013 Date of Influenza Vaccine: May 26, 2017 Seasonal Allergies Seasonal Allergies: Yes Surgeries History of Surgeries: Yes (BUNIONECTOMY, NECK FUSION, BREAST IMPLANTS) Surgeries: Lobectomy, Tubal Ligation Respiratory History of Respiratory Disorde: Yes ( HX OF LUNG CA) Respiratory Disorders: Asthma, COPD Currently Using CPAP: No Currently Using BIPAP: No Cardiovascular History of Cardiac Disorders: Yes Cardiac Disorders: Atrial Fibrillation Neurological History of Neurological Disord: No 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 System Hx 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 Disorders: Yes (PMB) 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 Genitourinary History of Genitourinary Disor: No Gastrointestinal History of Gastrointestinal Di: Yes Gastrointestinal Disorders: Gastroesophageal Reflux, Irritable Bowel Musculoskeletal History of Musculoskeletal Dis: Yes Musculoskeletal Disorders: Arthritis, Chronic Back Pain Endocrine History of Endocrine Disorders: No HEENT History of HEENT Disorders: No Cancer History of Cancer: Yes Cancer: Lung Cancer Comment: LOBECTOMY IN 2009 CYBERKNIFE TREATMENTS IN 2014 Psychosocial History of Psychiatric Problem: Yes Behavioral Health Disorders: Anxiety, Depression Suicide Risk Score: 0 Integumentary History of Skin or Integumenta: No Blood Transfusions History of Blood Disorders: No Adverse Reaction to a Blood Tr: No Family Medical History Significant Family History: No Pertinent Family Hx Family Medial History: FH: lung cancer 19 FATHER 19 MOTHER Review of Systems Time Seen by Provider: 08:36 Constitutional: Weakness, Malaise, No: Fever, Chills, Sweats, Other Eyes: No: Pain, Vision change, Conjunctivae inflammation, Eyelid inflammation, Other, Redness ENT: No: Ear pain, Ear discharge, Nose pain, Nose discharge, Nose congestion, Mouth pain, Mouth swelling, Throat pain, Throat swelling, Other Respiratory: Cough, Dry, Shortness of breath, SOB with excertion Cardiovascular: Chest Pain Musculoskeletal: back pain Exam Exam Vital Signs Date Time Temp Pulse Resp B/P (MAP) Pulse Ox O2 Delivery O2 Flow Rate FiO2 07/25/17 08:00 97.0 93 16 97/62 90 Room Air 07/25/17 06:44 97.9 07/25/17 05:00 97.9 91 16 112/61 96 Room Air 07/25/17 00:05 98.2 95 18 105/65 94 Room Air 07/24/17 22:00 94 Room Air 07/24/17 21:59 Room Air 07/24/17 21:00 Room Air 07/24/17 20:15 98.1 106 18 109/70 93 Room Air 07/24/17 18:45 96 Room Air 07/24/17 16:07 102 94 21 07/24/17 16:01 Room Air 07/24/17 16:00 95.5 102 18 100/69 95 Room Air 07/24/17 15:17 98.4 102 20 94 07/24/17 11:15 98.4 138 20 123/82 94 General Appearance: WD/WN, Mild Distress HEENT: PERRL/EOMI, TMs Normal, Normal ENT Inspection, Pharynx Normal Neck: Full Range of Motion, Normal Inspection, Supple Respiratory: Chest Non Tender, Lungs Clear, Normal Breath Sounds Cardiovascular: Regular Rate, Rhythm, No Edema, No Murmur, Normal Peripheral Pulses, Tachycardia Capillary Refill: Less Than 3 Seconds Extremity: Normal Capillary Refill, Normal Inspection, Non Tender Neurologic/Psychiatric: Alert, Oriented x3, No Motor/Sensory Deficits Skin: Normal Color, Warm/Dry Results Lab Laboratory Tests 07/24/17 11:20 Assessment/Plan Assessment/Plan Pneumonia with sepsis - not severe sepsis -Continue broad spectrum Abx and await cultures -SVNS -Oxygen -[place]btain [facility] [facility] Hx of lung cancer with lobectomy 254 Clinical Quality Measures AMI/AHF: ASA po Prior to arrival: No DVT/VTE Risk/Contraindication: Risk Factor Score Per Nursin RFS Level Per Nursing on Admit: 4+=Very High ANDIE RICHARDS DO Jul 25, 2017 08:29
[2017-07-25] MEDS: LEVOFLOXACIN 750 MG/D5W 150 ML PRE-MIX IV SCH (08:30)
[2017-07-25] MEDS: APIXABAN 5 MG (ELIQUIS) TABLET PO SCH ×2 (08:30→20:14)
[2017-07-25 08:49] LABS: BASOPHILS % (AUTO) 0 % (0-10); EOSINOPHILS # (AUTO) 0.1 10^3/uL (0.0-0.3); EOSINOPHILS % (AUTO) 2 % (0-10); LYMPHOCYTES # (AUTO) 1.1 X 10^3 (1.0-4.0); LYMPHOCYTES % (AUTO) 14 % (12-44); MEAN CORPUSCULAR HEMOGLOBIN 34 PG (25-34); MEAN CORPUSCULAR HGB CONC 33 G/DL (32-36); MEAN CORPUSCULAR VOLUME 105 FL (80-99); MONOCYTES # (AUTO) 0.7 X 10^3 (0.0-1.0); MONOCYTES % (AUTO) 9 % (0-12); NEUTROPHILS # (AUTO) 5.9 X 10^3 (1.8-7.8); NEUTROPHILS % (AUTO) 76 % (42-75); PLATELET COUNT 181 10^3/uL (130-400); RED CELL DISTRIBUTION WIDTH 15.3 % (10.0-14.5); WHITE BLOOD COUNT 7.9 10^3/uL (4.3-11.0)
[2017-07-25 09:00] LABS: ANION GAP 9 MMOL/L (5-14); BLOOD UREA NITROGEN 8 MG/DL (7-18); BUN/CREATININE RATIO 13; CALCIUM 8.6 MG/DL (8.5-10.1); CARBON DIOXIDE 22 MMOL/L (21-32); CHLORIDE 110 MMOL/L (98-107); CREATININE SERUM 0.64 MG/DL (0.60-1.30); GFR ESTIMATED > 60; GLUCOSE 117 MG/DL (70-105); MAGNESIUM 1.8 MG/DL (1.8-2.4); PHOSPHORUS 3.4 MG/DL (2.3-4.7); POTASSIUM 3.7 MMOL/L (3.6-5.0); SODIUM 141 MMOL/L (135-145)
[2017-07-25] MEDS ORDERED: MOME13HF INH (09:36)
[2017-07-25] MEDS ORDERED: GUAI120016 PO (09:36)
[2017-07-25] MEDS ORDERED: SUCR1ORA5 PO (09:36)
[2017-07-25] MEDS ORDERED: FLUT16SP22 NS (09:36)
[2017-07-25] MEDS ORDERED: VARE1TAB22 PO (09:36)
[2017-07-25] MEDS ORDERED: IPRA3AMP IH (09:36)
[2017-07-25] MEDS ORDERED: GABA-488 PO (09:36)
[2017-07-25] MEDS ORDERED: TERC45CR4 VG (09:36)
[2017-07-25] MEDS ORDERED: ALBU18HF2 INH (09:36)
[2017-07-25] MEDS ORDERED: FEXO-46 PO (09:36)
[2017-07-25] MEDS ORDERED: TIOT4MIS2 IH (09:36)
[2017-07-25] MEDS ORDERED: RT-ALBUTEROL HFA (VENTOLIN) PER PUFF IH PRN (10:15)
[2017-07-25] MEDS ORDERED: RT-ALBUTEROL/IPRATROPIUM 3 ML (DUONEB) VIAL IH PRN (10:15)
[2017-07-25] MEDS ORDERED: GABAPENTIN 300 MG (NEURONTIN) CAP PO PRN (10:15)
[2017-07-25] MEDS ORDERED: DIAZEPAM 5 MG (VALIUM) TABLET PO PRN (10:15)
[2017-07-25] MEDS ORDERED: ONDANSETRON 4 MG (ZOFRAN) ORAL DISSOLVE TAB PO PRN (10:15)
[2017-07-25] MEDS ORDERED: NYSTATIN ORAL SUSP 5 ML UDC PO PRN (10:15)
[2017-07-25] MEDS: medroxyPROGESTERone 2.5 MG (PROVERA) TABLET PO SCH (10:42)
[2017-07-25] MEDS: ESTRADIOL 1 MG TAB (ESTRACE) PO SCH (10:42)
[2017-07-25] MEDS: HYDROcodone/APAP 7.5 MG/325 MG (LORTAB, LORCET PLUS) TABLET PO PRN ×2 (10:45→20:20)
[2017-07-25] MEDS: RT-ADVAIR HFA 115/21 MCG PER PUFF IH SCH ×2 (11:02→18:54)
--- NOTE | 2017-07-25 11:10 | History & Physical-Hospitalist ---
HPI History of Present Illness: HPI/Chief Complaint CC: Sepsis HPI: This is a 56 yoWF pt who presented to the ER after feeling nauseated and ill. Pt had previous stay at [facility] for pneumonia and has hx of lung ca. No fever, vitals stable, WBC down from 23.7 to 7.9, Hgb 11, CMP normal, UA negative Dr. Armando Review: Pt currently has all [place] doctors and is wanting to switch to [place] doctors. Pt is on broad spectrum abx Pharmacy Review: Haemophilus is growing out on sputum culture. Depending on the cx that grow out , abx may need address further Pt had pseudomonas last month and atypical before that Patient Interview: Pt states she is feeling better today and states that she has had these issues and has been on abx for about 2 years. WBC is normal and this was discussed. Pt was surprised by this. Sputum cx was discussed as well as abx treatment. Pt was informed that Dr. Armando will be seeing her. Pt states she used to see Dr. Armando, then saw Dr. Lei, but now she lives back in [place] and has decided to start seeing [place] doctors again. Pt states she is starting smoking cessation and has been off and on for several years. Physical exam stable. Pt states she is on disability. Pt states she had lung ca, she had a lobectomy. After this she was fine for 5 years. Pt then needed a cyber-knife procedure, but she only worsened. Pt was then diagnosed with radiation pneumonitis. Pt states she has been prone to infection since then. Pt confirms having a breathing machine at home, but denies O2 usage. Pt would like to see an infectious disease specialist and has seen them before at [facility]. Pt was informed that she was admitted for what looks to be a new pneumonia, different from what she was treated for at [facility]. Pt states that yesterday Pt confirms Afib. Pt states she sees Dr. Chew. Pt states she was supposed to see Dr. Sawyer to review her meds that she was taken off of at [facility]. Pt was informed that I reviewed her home meds and she is okay to restart. Pt states she lives in [place]. Pt asked when she could DC, and pt was advised to be patient Scribed by Kaleigh Chavira under direct supervision of Dr. Charlene Barcenas. Source: patient Exam Limitations: no limitations Date Seen 07/25/17 Time Seen by Provider: 10:30 Attending Physician Charlene Barcenas DO PCP Brit Anderson DO Referring Physician Date of Admission Jul 24, 2017 at 14:42 Home Medications & Allergies Home Medications Reviewed patient Home Medication Reconciliation Form Allergies Allergies Coded Allergies No Known Drug Allergies (Oidxlnmj64/29/17) Past Ogljcqn-Colpkn-Vwenhr Hx Patient Social History Marrital Status: single Employed/Student: unemployed (disabled lung cancer) Alcohol Use: Regular Use Alcohol Beverage of Choice: Beer, Maceo Recreational Drug Use: No Smoking Status: Current Everyday Smoker Type Used: Cigarettes 2nd Hand Smoke Exposure: Yes Physical Abuse Screen: No Sexual Abuse: No Recent Foreign Travel: No Contact w/other who traveled: No Recent Hopitalizations: Yes (DUANE RAGLAND) Recent Infectious Disease Expo: No Immunizations Up To Date Tetanus Booster (TDap): Unknown Date of Pneumonia Vaccine: Oct 24, 2013 Date of Influenza Vaccine: May 26, 2017 Seasonal Allergies Seasonal Allergies: Yes Surgeries Yes (BUNIONECTOMY, NECK FUSION, BREAST IMPLANTS) Lobectomy, Tubal Ligation Respiratory Yes ( HX OF LUNG CA) COPD Currently Using CPAP: No Currently Using BIPAP: No Cardiovascular Yes Atrial Fibrillation, High Cholesterol Neurological No 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 System Hx 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 Disorders: Yes (PMB) CONTACT LENS MOLDER History: Menopausal Genitourinary No Gastrointestinal Yes Gastroesophageal Reflux, Irritable Bowel Musculoskeletal Yes Arthritis, Chronic Back Pain Endocrine History of Endocrine Disorders: No HEENT History of HEENT Disorders: No Cancer Yes Lung Cancer Comment: LOBECTOMY IN 2008 CYBERKNIFE TREATMENTS IN 2013 Psychosocial History of Psychiatric Problem: Yes Behavioral Health Disorders: Anxiety, Depression Integumentary History of Skin or Integumenta: No Blood Transfusions History of Blood Disorders: No Adverse Reaction to a Blood Tr: No Family Medical History Significant Family History: No Pertinent Family Hx Family Hx: FH: lung cancer 19 FATHER 19 MOTHER Review of Systems Constitutional: see HPI, weakness EENTM: no symptoms reported Respiratory: cough, short of breath, wheezing Cardiovascular: no symptoms reported Gastrointestinal: abdominal pain (LLQ), nausea, vomiting Genitourinary: no symptoms reported Musculoskeletal: no symptoms reported Skin: no symptoms reported Psychiatric/Neurological: No Symptoms Reported All Other Systems Reviewed Negative Unless Noted: Yes Physical Exam Physical Exam Vital Signs Vital Sign - Last 12Hours 07/24/17 07/24/1707/24/17 11:15 16:00 16:07 Temp 98.4 Pulse 138 Resp 20 B/P (MAP) 123/82 Pulse Ox 94 O2 Delivery Room Air FiO2 21 Capillary Refill : Less Than 3 Seconds General Appearance: No Apparent Distress, WD/WN, Chronically ill, Obese Eyes: Bilateral Eye Normal Inspection, Bilateral Eye PERRL HEENT: PERRL/EOMI, Normal ENT Inspection, Pharynx Normal Neck: Full Range of Motion, Normal Inspection, Non Tender, Supple, Carotid Bruit Respiratory: Chest Non Tender, No Accessory Muscle Use, No Respiratory Distress , Crackles (LLL), Decreased Breath Sounds Cardiovascular: Regular Rate, Rhythm, No Edema, No Gallop, No JVD, No Murmur, Normal Peripheral Pulses Gastrointestinal: Normal Bowel Sounds, No Organomegaly, No Pulsatile Mass, Non Tender, Soft Back: Normal Inspection, No CVA Tenderness, No Vertebral Tenderness Extremity: Normal Capillary Refill, Normal Inspection, Normal Range of Motion, Non Tender, No Calf Tenderness, No Pedal Edema Neurologic/Psychiatric: Alert, Oriented x3, No Motor/Sensory Deficits, Normal Mood/Affect Skin: Normal Color, Warm/Dry Lymphatic: No Adenopathy Results Results/Procedures Lab Laboratory Tests 07/24/17 11:20 07/25/17 05:35 Assessment/Plan Admission Diagnosis Assessment: LLL Pneumonia with Haemophilus on sputum Cx Severe COPD Recurrent pneumonias Radiation Pneumonitis chronic Smoker ERT AF HLP GERD Assessment and Plan Plan: DC Vancomycin Restart home meds DC fluids Ambulate Nebs Dr Armando consultation Home meds Diagnosis/Problems Diagnosis/Problems (1) Pneumonia Status: Acute Assessment & Plan: Abx Qualifiers: Qualified Codes: J14 - Pneumonia due to hemophilus influenzae (2) Atrial fibrillation Status: Chronic Assessment & Plan: Monitor rate and restart home meds Qualifiers: Qualified Codes: I48.2 - Chronic atrial fibrillation (3) Lung cancer Status: Chronic Assessment & Plan: Monitor closely per Pulmonary Qualifiers: (4) Smoker Status: Chronic Assessment & Plan: Smoking cessation counseled Clinical Quality Measures AMI/AHF: ASA po Prior to arrival: No DVT/VTE Risk/Contraindication: Risk Factor Score Per Nursin RFS Level Per Nursing on Admit: 4+=Very High CHARLENE BARCENAS DO Jul 25, 2017 11:10
[2017-07-25 12:00] VITALS: BP 96/60
[2017-07-25] MEDS ORDERED: SUCRALFATE 1 GM (CARAFATE) TAB PO PRN (12:15)
[2017-07-25] MEDS ORDERED: DIPHENOXYLATE/ATROPINE 2.5MG/0.025MG (LOMOTIL) TAB PO PRN (12:15)
[2017-07-25 16:55] VITALS: BP 116/61
[2017-07-25] MEDS: UMECLIDINIUM BROMIDE (INCRUSE ELLIPTA) 7'S IH SCH (17:00)
[2017-07-25 20:00] VITALS: BP 120/62
[2017-07-25] MEDS: guaiFENesin (MUCINEX) 600 MG TAB PO SCH (20:15)
[2017-07-25] MEDS ORDERED: SIMvastatin 20 MG (ZOCOR) TAB PO SCH (21:00)
[2017-07-25] MEDS ORDERED: APIXABAN 5 MG (ELIQUIS) TABLET PO SCH (21:00)
[2017-07-25] MEDS ORDERED: NON-FORMULARY MEDICATION 1 EA EA (Varenicline Tartrate (Chantix) 1 MG) PO SCH (21:00)
[2017-07-25] MEDS ORDERED: CLOTRIMAZOLE 1% VAG CR (GYNE LOTRIMIN) 45 GM PV SCH (21:00)
[2017-07-25] MEDS ORDERED: MONTELUKAST 10 MG (SINGULAIR) TAB PO SCH (21:00)
[2017-07-25] MEDS ORDERED: NON-FORMULARY MEDICATION 1 EA EA (Mometasone/Formoterol (Dulera 200 Mcg/5 Mcg Inhaler) 2 P INH SCH (21:00)
[2017-07-25] MEDS ORDERED: TERCONAZOLE VG SCH (21:00)
[2017-07-26 00:45] VITALS: BP 114/68
[2017-07-26] MEDS: RT-ALBUTEROL/IPRATROPIUM 3 ML (DUONEB) VIAL INH SCH ×3 (02:00→10:32)
[2017-07-26] MEDS: CEFEPIME 2 GM/NS 50 ML IVPB IV SCH ×2 (05:16)
[2017-07-26 06:50] LABS: BASOPHILS % (AUTO) 1 % (0-10); EOSINOPHILS # (AUTO) 0.2 10^3/uL (0.0-0.3); EOSINOPHILS % (AUTO) 3 % (0-10); LYMPHOCYTES # (AUTO) 1.2 X 10^3 (1.0-4.0); LYMPHOCYTES % (AUTO) 21 % (12-44); MEAN CORPUSCULAR HEMOGLOBIN 34 PG (25-34); MEAN CORPUSCULAR HGB CONC 32 G/DL (32-36); MEAN CORPUSCULAR VOLUME 105 FL (80-99); MEAN PLATELET VOLUME 10.4 FL (7.4-10.4); MONOCYTES # (AUTO) 0.4 X 10^3 (0.0-1.0); MONOCYTES % (AUTO) 7 % (0-12); NEUTROPHILS # (AUTO) 3.9 X 10^3 (1.8-7.8); NEUTROPHILS % (AUTO) 68 % (42-75); PLATELET COUNT 203 10^3/uL (130-400); RED BLOOD COUNT 3.24 10^6/uL (4.35-5.85); RED CELL DISTRIBUTION WIDTH 14.9 % (10.0-14.5); WHITE BLOOD COUNT 5.7 10^3/uL (4.3-11.0)
[2017-07-26 07:02] LABS: ANION GAP 7 MMOL/L (5-14); BLOOD UREA NITROGEN 11 MG/DL (7-18); BUN/CREATININE RATIO 16; CARBON DIOXIDE 24 MMOL/L (21-32); CHLORIDE 110 MMOL/L (98-107); CREATININE SERUM 0.69 MG/DL (0.60-1.30); GFR ESTIMATED > 60; GLUCOSE 110 MG/DL (70-105); MAGNESIUM 1.7 MG/DL (1.8-2.4); PHOSPHORUS 3.4 MG/DL (2.3-4.7); POTASSIUM 3.9 MMOL/L (3.6-5.0); SODIUM 141 MMOL/L (135-145)
--- NOTE | 2017-07-26 07:52 | Pulmonary Progress Note ---
Subjective Time Seen by Provider: 07:52 Subjective/Events-last exam No complications noted. Pt is feeling much better. Exam Exam Vital Signs Date Time Temp Pulse Resp B/P (MAP) Pulse Ox O2 Delivery O2 Flow Rate FiO2 07/26/17 00:45 98.2 105 20 114/68 (83) 96 Room Air 07/25/17 22:29 94 Room Air 07/25/17 21:00 Room Air 07/25/17 20:00 98.3 118 20 120/62 (81) 94 Room Air 07/25/17 19:02 Room Air 07/25/17 18:55 95 Room Air 07/25/17 17:01 96 Room Air 07/25/17 16:55 97.1 100 18 116/61 (79) 97 Room Air 07/25/17 14:51 95 Room Air 07/25/17 12:00 97.3 109 18 96/60 (72) 94 Room Air 07/25/17 11:02 96 Room Air 07/25/17 10:55 95 Room Air 07/25/17 09:39 90 Room Air 07/25/17 08:00 97.0 93 16 97/62 90 Room Air General Appearance: No Apparent Distress, WD/WN, Chronically ill, Obese HEENT: PERRL/EOMI, Normal ENT Inspection, Pharynx Normal Neck: Full Range of Motion, Normal Inspection, Non Tender, Supple, Carotid Bruit Respiratory: Chest Non Tender, No Accessory Muscle Use, No Respiratory Distress , Crackles (LLL), Decreased Breath Sounds Cardiovascular: Regular Rate, Rhythm, No Edema, No Gallop, No JVD, No Murmur, Normal Peripheral Pulses Capillary Refill: Less Than 3 Seconds Extremity: Normal Capillary Refill, Normal Inspection, Normal Range of Motion, Non Tender, No Calf Tenderness, No Pedal Edema Neurologic/Psychiatric: Alert, Oriented x3, No Motor/Sensory Deficits, Normal Mood/Affect Skin: Normal Color, Warm/Dry Lymphatic: No Adenopathy Results Lab Laboratory Tests 07/24/17 11:20 07/25/17 05:35 07/26/17 06:22 Assessment/Plan Assessment/Plan Pneumonia with sepsis - not severe sepsis -Change IV Abx to PO omnicef x 5days then D/C -SVNS -Oxygen -Obtain [facility] records Hx of lung cancer with lobectomy Pt is ok for discharge from my standpoint with Omnicef x 5days then D/C 232 Clinical Quality Measures AMI/AHF: ASA po Prior to arrival: No DVT/VTE Risk/Contraindication: Risk Factor Score Per Nursin RFS Level Per Nursing on Admit: 4+=Very High ANDIE RICHARDS DO Jul 26, 2017 07:51
[2017-07-26 08:00] VITALS: BP 139/79
[2017-07-26] MEDS ORDERED: UMECLIDINIUM BROMIDE (INCRUSE ELLIPTA) 7'S IH SCH (08:00)
[2017-07-26] MEDS ORDERED: FLUTICASONE NASAL SPRAY (FLONASE) 16 GM BTL NS SCH (09:00)
[2017-07-26] MEDS ORDERED: DILTIAZEM 240 MG (CARDIZEM CD) CAP PO SCH (09:00)
[2017-07-26] MEDS ORDERED: CEFDINIR 300 MG (OMNICEF) CAP PO SCH ×2 (09:00)
[2017-07-26] MEDS ORDERED: PANTOPRAZOLE 40 MG (PROTONIX) TAB PO SCH (09:00)
[2017-07-26] MEDS ORDERED: LORATADINE (CLARITIN) 10 MG TAB PO SCH (09:00)
[2017-07-26] MEDS ORDERED: NON-FORMULARY MEDICATION 1 EA EA (Tiotropium Bromide (Spiriva Respimat 2.5MCG/ACTUATION) 2 IH SCH (09:00)
[2017-07-26] MEDS: ESTRADIOL 1 MG TAB (ESTRACE) PO SCH (09:29)
[2017-07-26] MEDS: guaiFENesin (MUCINEX) 600 MG TAB PO SCH (09:29)
[2017-07-26] MEDS: medroxyPROGESTERone 2.5 MG (PROVERA) TABLET PO SCH (09:30)
[2017-07-26] MEDS: APIXABAN 5 MG (ELIQUIS) TABLET PO SCH (09:30)
[2017-07-26] MEDS: HYDROcodone/APAP 7.5 MG/325 MG (LORTAB, LORCET PLUS) TABLET PO PRN (09:38)
[2017-07-26] MEDS: UMECLIDINIUM BROMIDE (INCRUSE ELLIPTA) 7'S IH SCH (10:32)
[2017-07-26] MEDS: RT-ADVAIR HFA 115/21 MCG PER PUFF IH SCH (10:33)
[2017-07-26] MEDS ORDERED: CEFD300C3 PO (10:33)
--- NOTE | 2017-07-26 11:26 | Progress Note-Hospitalist ---
Progress Note HPI/CC on Admission CC: Sepsis HPI: This is a 56 yoWF pt who presented to the ER after feeling nauseated and ill. Pt had previous stay at [facility] for pneumonia and has hx of lung ca. No fever, vitals stable, WBC down from 23.7 to 7.9, Hgb 11, CMP normal, UA negative Dr. Armando Review: Pt currently has all [place] doctors and is wanting to switch to [place] doctors. Pt is on broad spectrum abx Pharmacy Review: Haemophilus is growing out on sputum culture. Depending on the cx that grow out , abx may need address further Pt had pseudomonas last month and atypical before that Patient Interview: Pt states she is feeling better today and states that she has had these issues and has been on abx for about 2 years. WBC is normal and this was discussed. Pt was surprised by this. Sputum cx was discussed as well as abx treatment. Pt was informed that Dr. Armando will be seeing her. Pt states she used to see Dr. Armando, then saw Dr. Lei, but now she lives back in [place] and has decided to start seeing [place] doctors again. Pt states she is starting smoking cessation and has been off and on for several years. Physical exam stable. Pt states she is on disability. Pt states she had lung ca, she had a lobectomy. After this she was fine for 5 years. Pt then needed a cyber-knife procedure, but she only worsened. Pt was then diagnosed with radiation pneumonitis. Pt states she has been prone to infection since then. Pt confirms having a breathing machine at home, but denies O2 usage. Pt would like to see an infectious disease specialist and has seen them before at [facility]. Pt was informed that she was admitted for what looks to be a new pneumonia, different from what she was treated for at [facility]. Pt states that yesterday Pt confirms Afib. Pt states she sees Dr. Chew. Pt states she was supposed to see Dr. Sawyer to review her meds that she was taken off of at [facility]. Pt was informed that I reviewed her home meds and she is okay to restart. Pt states she lives in [place]. Pt asked when she could DC, and pt was advised to be patient Scribed by Kaleigh Chavira under direct supervision of Dr. Charlene Barcenas. Progress Notes/Assess & Plan Date Seen 07/26/17 Time Seen by Provider: 11:00 Admission Dx/Process Assessment: LLL Pneumonia with Haemophilus on sputum Cx Severe COPD Recurrent pneumonias Radiation Pneumonitis chronic Smoker ERT AF HLP GERD Diagonsis/Assessment & Plan RT Review: Pt does not need O2 Patient Interview: Home O2 eval was discussed and pt looked good while she was walking. Pt states she has been weak since the beginning of her illness. Pt states that she will keep her appt with Dr. Chew today at 1200. Pt states that she will have an ECHO Physical exam stable. Lungs sound good. Pt confirms [facility] as pharmacy Labs were discussed and look good Pt asked about allergy medications to help her more. Pt was advised to start a Nettipot along with her other allergy medications AFVSS, Pleasant, O x 3 IRRR with tachy, CTAB no edema noted Assessment: LLL Pneumonia with Haemophilus on sputum Cx Severe COPD Recurrent pneumonias Radiation Pneumonitis chronic Smoker ERT AF HLP GERD Plan: Appointment with Dr. Chew today 1200 as scheduled Omnicef 6 days twice a day Nettipot Scribed by Kaleigh Chavira under direct supervision of Dr. Charlene Barcenas. Diagnosis/Problems Diagnosis/Problems (1) Pneumonia Status: Acute Assessment & Plan: Abx Qualifiers: Qualified Codes: J14 - Pneumonia due to hemophilus influenzae (2) Atrial fibrillation Status: Chronic Assessment & Plan: Monitor rate and restart home meds Qualifiers: Qualified Codes: I48.2 - Chronic atrial fibrillation (3) Lung cancer Status: Chronic Assessment & Plan: Monitor closely per Pulmonary Qualifiers: (4) Smoker Status: Chronic Assessment & Plan: Smoking cessation counseled CHARLENE BARCENAS DO Jul 26, 2017 11:26
[2017-07-26 11:45] VITALS: BP 139/79
--- NOTE | 2017-07-26 12:10 | Discharge Summary-Hospitalist ---
Diagnosis/Chief Complaint Date of Admission Jul 24, 2017 at 14:42 Date of Discharge Discharge Date: Jul 26, 2017 Admission Diagnosis Assessment: LLL Pneumonia with Haemophilus on sputum Cx Severe COPD Recurrent pneumonias Radiation Pneumonitis chronic Smoker ERT AF HLP GERD Discharge Diagnosis RT Review: Pt does not need O2 Patient Interview: Home O2 eval was discussed and pt looked good while she was walking. Pt states she has been weak since the beginning of her illness. Pt states that she will keep her appt with Dr. Chew today at 1200. Pt states that she will have an ECHO Physical exam stable. Lungs sound good. Pt confirms [facility] Labs were discussed and look good Pt asked about allergy medications to help her more. Pt was advised to start a Nettipot along with her other allergy medications AFVSS, Pleasant, O x 3 IRRR with tachy, CTAB no edema noted Assessment: LLL Pneumonia with Haemophilus on sputum Cx Severe COPD Recurrent pneumonias Radiation Pneumonitis chronic Smoker ERT AF HLP GERD Plan: Appointment with Dr. Chew today 1200 as scheduled Omnicef 6 days twice a day Nettipot Scribed by Kaleigh Chavira under direct supervision of Dr. Charlene Barcenas. (1) Pneumonia Status: Acute Assessment & Plan: Abx (2) Atrial fibrillation Status: Chronic Assessment & Plan: Monitor rate and restart home meds (3) Lung cancer Status: Chronic Assessment & Plan: Monitor closely per Pulmonary (4) Smoker Status: Chronic Assessment & Plan: Smoking cessation counseled Discharge Summary Discharge Physical Examination Allergies: Coded Allergies: No Known Drug Allergies (Verified , 07/24/17) Vitals & I&Os Vital Signs Date Time Temp Pulse Resp B/P (MAP) Pulse Ox O2 Delivery O2 Flow Rate FiO2 07/26/17 11:45 115 20 139/79 96 Room Air 07/26/17 10:10 97.8 07/24/17 16:07 21 Hospital Course RT Review: Pt does not need O2 Patient Interview: Home O2 eval was discussed and pt looked good while she was walking. Pt states she has been weak since the beginning of her illness. Pt states that she will keep her appt with Dr. hCew today at 1200. Pt states that she will have an ECHO Physical exam stable. Lungs sound good. Pt confirms [facility] Labs were discussed and look good Pt asked about allergy medications to help her more. Pt was advised to start a Nettipot along with her other allergy medications AFVSS, Pleasant, O x 3 IRRR with tachy, CTAB no edema noted Assessment: LLL Pneumonia with Haemophilus on sputum Cx Severe COPD Recurrent pneumonias Radiation Pneumonitis chronic Smoker ERT AF HLP GERD Plan: Appointment with Dr. Chew today 1200 as scheduled Omnicef 6 days twice a day Nettipot Scribed by Kaleigh Chavira under direct supervision of Dr. Charlene Barcenas. Labs (last 24 hrs) Laboratory Tests 07/26/17 06:22: White Blood Count 5.7, Red Blood Count 3.24L, Hemoglobin 11.0L, Hematocrit 34L, Mean Corpuscular Volume 105H, Mean Corpuscular Hemoglobin 34, Mean Corpuscular Hemoglobin Concent 32, Red Cell Distribution Width 14.9H, Platelet Count 203, Mean Platelet Volume 10.4, Neutrophils (%) (Auto) 68, Lymphocytes (%) (Auto) 21 , Monocytes (%) (Auto) 7, Eosinophils (%) (Auto) 3, Basophils (%) (Auto) 1, Neutrophils # (Auto) 3.9, Lymphocytes # (Auto) 1.2, Monocytes # (Auto) 0.4, Eosinophils # (Auto) 0.2, Basophils # (Auto) 0.0, Sodium Level 141, Potassium Level 3.9, Chloride Level 110H, Carbon Dioxide Level 24, Anion Gap 7, Blood Urea Nitrogen 11, Creatinine 0.69, Estimat Glomerular Filtration Rate > 60, BUN/ Creatinine Ratio 16, Glucose Level 110H, Calcium Level 9.0, Phosphorus Level 3.4 , Magnesium Level 1.7L Microbiology 07/24/17 Blood Culture - Preliminary, Resulted No growth 07/24/17 Gram Stain - Final, Complete 07/24/17 Sputum Culture - Final, Complete Haemophilus Influenza Pending Labs Laboratory Tests 07/26/17 06:22: White Blood Count 5.7, Red Blood Count 3.24, Hemoglobin 11.0, Hematocrit 34, Mean Corpuscular Volume 105, Mean Corpuscular Hemoglobin 34, Mean Corpuscular Hemoglobin Concent 32, Red Cell Distribution Width 14.9, Platelet Count 203, Mean Platelet Volume 10.4, Neutrophils (%) (Auto) 68, Lymphocytes (%) (Auto) 21 , Monocytes (%) (Auto) 7, Eosinophils (%) (Auto) 3, Basophils (%) (Auto) 1, Neutrophils # (Auto) 3.9, Lymphocytes # (Auto) 1.2, Monocytes # (Auto) 0.4, Eosinophils # (Auto) 0.2, Basophils # (Auto) 0.0, Sodium Level 141, Potassium Level 3.9, Chloride Level 110, Carbon Dioxide Level 24, Anion Gap 7, Blood Urea Nitrogen 11, Creatinine 0.69, Estimat Glomerular Filtration Rate > 60, BUN/ Creatinine Ratio 16, Glucose Level 110, Calcium Level 9.0, Phosphorus Level 3.4 , Magnesium Level 1.7 Discharge Home Medications: Active Scripts Active Cefdinir 300 Mg Capsule 300 Mg PO BID Reported Iprat-Albut 0.5-3(2.5) mg/3 ml (Ipratropium/Albuterol Sulfate) 3 Ml Ampul.neb 3 Ml IH Q4H PRN Terconazole 45 Gm Cream.appl 1 Appful VG HS 7 Days 7 DAY THERAPY FILLED 07-23-17 (NOT PICKED UP YET) Guaifenesin 1,200 Mg Tab.er.12h 1,200 Mg PO BID Carafate (Sucralfate) 1 Gm/10 Ml Oral.susp 10 Ml PO QID PRN Fluticasone Propionate 16 Gm Lamy.susp 2 Lamy NS DAILY Chantix (Varenicline Tartrate) 1 Mg Tablet 1 Mg PO BID Dulera 200 Mcg/5 Mcg Inhaler (Mometasone/Formoterol) 13 Gm Hfa.aer.ad 2 Puff INH BID Ventolin Hfa (Albuterol Sulfate) 18 Gm Hfa.aer.ad 2 Puff INH Q4H PRN Gabapentin 300 Mg Capsule 300 Mg PO TID PRN Fexofenadine HCl 180 Mg Tablet 180 Mg PO DAILY Spiriva Respimat 2.5MCG/ACTUATION (Tiotropium [place]) 4 Gm Mist.inhal 2 Puff IH DAILY Cartia Xt (Diltiazem HCl) 240 Mg Cap.er.24h 240 Mg PO DAILY Nystatin 100,000 Unit/1 Ml Oral.susp 10 Ml PO QID PRN Pantoprazole Sodium 40 Mg Tablet.dr 40 Mg PO DAILY Montelukast Sodium 10 Mg Tablet 10 Mg PO HS Pravastatin Sodium 40 Mg Tablet 40 Mg PO HS Zofran Odt (Ondansetron) 4 Mg Tab.rapdis 4 Mg PO Q4H PRN Hydrocodon-Acetaminoph 7.5-325 (Hydrocodone/Acetaminophen) 1 Each Tablet 1 Tab PO Q4H PRN Diazepam 5 Mg Tablet 5 Mg PO BID PRN Estradiol Tablet (Estradiol) 0.5 Mg Tablet 0.5 Mg PO DAILY Provera (Medroxyprogesterone Acetate) 2.5 Mg Tablet 2.5 Mg PO DAILY Lomotil 2.5-0.025 mg Tablet (Diphenoxylate HCl/Atropine) 1 Each Tablet 1 Tab PO QID PRN Eliquis (Apixaban) 5 Mg Tablet 5 Mg PO BID Instructions to patient/family Please see electronic discharge instructions given to patient. Clinical Quality Measures AMI/AHF: ASA po Prior to arrival: No DVT/VTE Risk/Contraindication: Risk Factor Score Per Nursin RFS Level Per Nursing on Admit: 4+=Very High Problem Qualifiers (1) Pneumonia: Pneumonia type: due to Haemophilus influenzae Laterality: left Lung location : lower lobe of lung Qualified Codes: J14 - Pneumonia due to hemophilus influenzae (2) Atrial fibrillation: Atrial fibrillation type: chronic Qualified Codes: I48.2 - Chronic atrial fibrillation (3) Lung cancer: Laterality: right CHARLENE BARCENAS DO Jul 26, 2017 12:10
== END 2017-07-26 11:55 | disposition home or self-care (01) | DRG 871 ==
LOC: EDUNIT# 11:15 → ER 11:17 → 4TH 14:42
PROVIDERS: ADMIT Internal Medicine; ATTEND Internal Medicine
DX: A41.9 Sepsis, unspecified organism (principal); J14 Pneumonia due to Hemophilus influenzae; J44.0 Chronic obstructive pulmonary disease with (acute) lower respiratory infection; B96.3 Hemophilus influenzae [H. influenzae] as the cause of diseases classified elsewhere; I48.2 Chronic atrial fibrillation; F17.210 Nicotine dependence, cigarettes, uncomplicated; J45.909 Unspecified asthma, uncomplicated; M19.91 Primary osteoarthritis, unspecified site; F41.9 Anxiety disorder, unspecified; F32.9 Major depressive disorder, single episode, unspecified; K21.9 Gastro-esophageal reflux disease without esophagitis; K58.9 Irritable bowel syndrome, unspecified; N95.0 Postmenopausal bleeding; E78.5 Hyperlipidemia, unspecified; Z85.118 Personal history of other malignant neoplasm of bronchus and lung; Z90.2 Acquired absence of lung [part of]; Z79.01 Long term (current) use of anticoagulants; J70.1 Chronic and other pulmonary manifestations due to radiation
CPT/HCPCS: 36415; 71010; 74177; 80048; 80053; 80061; 81000; 83605; 83735; 83874; 84100; 84484; 85007; 85025; 85027; 85610; 85730; 87040; 87070; 87077; 87205; 93005; 93041; 94640; 94760; 94761

== ENCOUNTER → 2017-08-09 | Outpatient (CLI) | payer MEDICARE, MEDICAID ==
[~2017-08-09] MED LIST changes: +ALBU18HF2 INH; +FEXO-46 PO; +FLUT16SP22 NS; +GABA-488 PO; +GUAI120016 PO; +IOHEXOL 350 MG/ML 100 ML (OMNIPAQUE 350) VIAL IV ONE; +IPRA3AMP IH; +MOME13HF INH; +NS 100 ML (IVPB) BAG IV ONE; +SUCR1ORA5 PO; +TERC45CR4 VG; +TIOT4MIS2 IH
--- NOTE | 2017-08-09 13:30 | Diagnostic Imaging Report ---
PROCEDURE: CT chest with contrast only. TECHNIQUE: Multiple contiguous axial images were obtained through the chest after administration of intravenous contrast. INDICATION: History of lung cancer with right middle lobectomy. COMPARISON: 05/15/2017. FINDINGS: Postsurgical and postradiation changes along the right perihilar region with linear scarring extending to the posterior chest wall is again noted. Small nodular density remains present adjacent to the fiducial marker measuring approximately 12 x 7 mm. This does not appear to have changed significantly since previous exam. The right lung is otherwise clear with mild chronic groundglass appearance noted throughout. The nodular density reported medially in the right lung base is again noted and appears more prominent today. This has a somewhat larger more linear appearance measuring approximately 10 x 12 mm. There is also now an additional small density developing more peripherally in the left lung base along the costophrenic angle measuring approximately 5 mm. No mediastinal or hilar adenopathy of pathologic size has developed. There is good opacification of the aorta and pulmonary arteries following IV contrast injection. No pleural effusions or pericardial effusions. The adrenal glands are not enlarged. IMPRESSION: 1. Stable appearance of the right perihilar region with the 12 x 7 mm nodule noted adjacent to fiducial marker. Associated scarring in the right lung again noted. 2. The density in the medial left lung base appears to have increased slightly in size, today measuring approximately 10 x 12 mm. There is also a new 5 mm nodule in the left lung base more peripherally. Dictated by: Dictated on workstation # [id number]
== END ==
LOC: RAD 12:33
PROVIDERS: ATTEND Internal Medicine
DX: C34.91 Malignant neoplasm of unspecified part of right bronchus or lung (principal); R91.1 Solitary pulmonary nodule; Z90.2 Acquired absence of lung [part of]
CPT/HCPCS: 71260

== ENCOUNTER → 2017-09-03 | Outpatient (CLI) | payer MEDICARE, MEDICAID ==
[~2017-09-03] MED LIST changes: -IOHEXOL 350 MG/ML 100 ML (OMNIPAQUE 350) VIAL IV ONE; -NS 100 ML (IVPB) BAG IV ONE
--- NOTE | 2017-09-05 08:09 | Diagnostic Imaging Report ---
EXAM: PET/CT. INDICATION: Lung cancer. TECHNIQUE: PET/CT imaging was obtained from the base of the skull through the pelvis after the administration of 13.84 mCi of F-[address] imaging was utilized for localization and attenuation correction purposes. The low energy CT utilized for attenuation correction is not considered to be of high enough spatial resolution to allow in and of itself a separate anatomical analysis. The previous PET/CT exam of 10/23/2016 noted a 1.4 cm nodule in the right upper lobe with surrounding groundglass opacity. This had a maximum SUV of 3.2. On the CT images of this exam, that nodule does seem slightly smaller, now measures 1.2 cm. The groundglass opacities about the nodule may be somewhat less conspicuous, as well. Furthermore, the hypermetabolic activity of this nodule has decreased from the prior exam and is now estimated at 1.9. No other hypermetabolic activity involving the thorax is identified. The scar formation involving the right lung noted on the prior study is again visualized and no different. The previous PET/CT exam also noted indeterminate mild to moderate activity over the upper vagina and cervix. That finding is again evident and has not changed significantly. There is still no corresponding mass evident in this region on the CT exam. The remainder of the PET/CT exam is stable when compared to the prior exam. No new area of abnormal activity has developed to suggest neoplastic disease. IMPRESSION: 1. The small hypermetabolic nodule in the right upper lung seen on the prior exam has diminished in size and hypermetabolic activity. 2. There is still indeterminate moderate activity in the upper vagina and cervix region but there is no discrete mass identified. Clinical followup is recommended. 2. The remainder the PET/CT exam is stable when compared to the prior exam. No new abnormality has developed. Dictated by: Dictated on workstation # [id number]
== END ==
LOC: RAD 13:13
PROVIDERS: ATTEND Internal Medicine
DX: C34.32 Malignant neoplasm of lower lobe, left bronchus or lung (principal)

== ENCOUNTER 2017-09-13 11:50 | Emergency (ER) | payer MEDICARE, MEDICAID ==
[~2017-09-13] VITALS: Ht 165.1 cm; Wt 97.5 kg
--- OUTSIDE RECORDS SUMMARY | 2017-09-13 12:06 | XMS REPORT | Continuity of Care Document ---
Author Author [facility] Address Unknown Phone Unavailable Allergies Active Description Code Type Severity Reaction Onset Reported/Identified Relationship to Patient Clinical Status Yes No Known Drug Allergies [id number] Drug Allergy Unknown N/A 07/24/2017 Medications There is no data. Problems Date Dx Coded Attending Type Code Diagnosis Diagnosed By 07/15/2008 YURIY ACHARYA LCPC 528.9 MOUTH PAIN 07/15/2008 YURIY ACHARYA LCPC 724.5 BACKACHE 2008 YURIY ACHARYA LC[facility] 786.07 WHEEZING 2008 YURIY ACHARYA LCPC 786.2 cough 08/11/2008 YURIY ACHARYA [facility]PC 486 PNEUMONIA UNSPECIFIED 09/02/2008 YURIY ACHARYA LCPC 793.1 NONSPECIFIC ABNORMAL FINDINGS ON RADIOLOGICAL AND OTHER EXAMINATION OF LUNG FIELD 11/23/2008 YURIY ACHARYA LCPC 162.9 LUNG CANCER 12/16/2008 YURIY ACHARYA LCPC 729.5 pain in the leg (below the knee) 12/16/2008 YURIY ACHARYA LCPC 780.79 feeling tired or poorly 03/10/2009 YURIY ACHARYA LCPC 599.0 URINARY TRACT INFECTION 03/10/2009 YURIY ACHARYA LCPC 788.1 pain during urination (dysuria) 11/23/2009 Ot 162.4 11/23/2009 Ot V15.3 11/23/2009 Ot V45.76 11/23/2009 Ot V58.69 11/23/2009 Ot V87.41 12/28/2009 Ot 162.4 12/28/2009 Ot 786.05 12/28/2009 Ot 786.09 12/28/2009 Ot 786.59 12/28/2009 Ot V58.69 03/01/2010 Ot 162.9 03/19/2010 Ot 785.1 03/19/2010 Ot 786.09 03/19/2010 Ot 786.50 05/26/2010 MARCK STERNPCRYANYURIY B 110.1 ONYCHOMYCOSIS 05/26/2010 MARCK YURIY VASQUEZ 356.9 NEUROPATHY 05/26/2010 MARCK PEDRO YURIY B 735.4 HAMMER TOE (ACQUIRED) 06/02/2010 Ot 569.0 06/02/2010 Ot V10.11 07/12/2010 Ot 305.1 07/12/2010 Ot 721.0 07/12/2010 Ot 721.3 07/12/2010 Ot V10.11 07/12/2010 Ot V58.69 07/12/2010 Ot V67.1 07/12/2010 Ot V67.2 10/12/2013 MARCK PEDRO YURIY B 300.02 AN GEN ANXIETY 10/12/2013 MARCK PEDRO YURIY B 311 DEPRESSIVE DISORDER NOS 10/04/2014 Ot 397.0 10/04/2014 Ot 424.0 10/04/2014 Ot 785.1 10/04/2014 Ot 786.09 10/04/2014 Ot 785.1 10/04/2014 Ot 786.09 10/04/2014 Ot 786.50 10/04/2014 Ot 162.9 10/04/2014 Ot 428.0 10/04/2014 Ot 162.9 10/04/2014 Ot V43.82 10/04/2014 Ot V76.12 10/04/2014 Ot 721.0 10/04/2014 Ot 724.02 10/04/2014 Ot V45.4 10/04/2014 Ot 162.9 10/04/2014 Ot 729.5 10/04/2014 Ot 599.70 10/04/2014 Ot 305.1 10/04/2014 Ot 721.0 10/04/2014 Ot 721.3 10/04/2014 Ot V10.11 10/04/2014 Ot V58.69 10/04/2014 Ot V67.1 10/04/2014 Ot V67.2 10/20/2014 OSIRIS SUMMERS, MUKESH Novak Ot 723.1 10/20/2014 OSIRIS SUMMERS, MUKESH Novak Ot V45.4 10/20/2014 OSIRIS SUMMERS, MUKESH Novak Ot V57.1 10/21/2014 OSIRIS SUMMERS, CHERYLON A Ot 723.1 10/21/2014 OSIRIS SUMMERS, CHERYLON A Ot V45.4 10/21/2014 OSIRIS SUMMERS, CHERYLON A Ot V57.1 11/23/2014 OSIRIS SUMMERS, CHERYLON A Ot 723.1 11/23/2014 OSIRIS SUMMERS, CHERYLON A Ot V45.4 11/23/2014 OSIRIS SUMMERS, CHERYLON A Ot V57.1 11/23/2014 OSIRIS SUMMERS, CHERYLON A Ot 723.1 11/23/2014 OSIRIS SUMMERS, CHERYLON A Ot V45.4 11/23/2014 OSIRIS SUMMERS, CHERYLON A Ot V57.1 11/24/2014 OSIRIS SUMMERS, CHERYLON A Ot 723.1 11/24/2014 OSIRIS SUMMERS, CHERYLON A Ot V45.4 11/24/2014 OSIRIS SUMMERS, CHERYLON A Ot V57.1 11/24/2014 OSIRIS SUMMERS, CHERYLON A Ot 723.1 11/24/2014 OSIRIS SUMMERS, CHERYLON A Ot V45.4 11/24/2014 OSIRIS SUMMERS, CHERYLON A Ot V57.1 11/25/2014 OSIRIS SUMMERS, CHERYLON A Ot 723.1 CERVICALGIA 11/25/2014 OSIRIS SUMMERS, CHERYLON A Ot V45.4 ARTHRODESIS STATUS 11/25/2014 OSIRIS SUMMERS, CHERYLON A Ot V57.1 PHYSICAL THERAPY NEC 04/04/2015 ANDIE RICHARDS DO Ot 780.54 HYPERSOMNIA, UNSPECIFIED 04/04/2015 ANDIE RICHARDS DO Ot 786.09 RESPIRATORY ABNORM NEC 04/14/2015 ANDIE RICHARDS DO Ot 162.9 04/14/2015 ANDIE RICHARDS DO Ot 305.1 04/14/2015 ANDIE RICHARDS DO Ot 496 05/03/2015 ANDIE RICHARDS DO Ot 162.9 05/03/2015 ANDIE RICHARDS DO Ot 305.1 05/03/2015 ANDIE RICHARDS DO Ot 496 05/09/2015 ANDIE RICHARDS DO Ot 162.9 05/09/2015 ANDIE RICHARDS DO Ot 305.1 05/09/2015 ANDIE RICHARDS DO Ot 496 05/23/2015 Ot 397.0 05/23/2015 Ot 424.0 05/23/2015 Ot 785.1 05/23/2015 Ot 786.09 05/23/2015 Ot 785.1 05/23/2015 Ot 786.09 05/23/2015 Ot 786.50 05/23/2015 Ot 162.9 05/23/2015 Ot 428.0 05/23/2015 Ot 162.9 05/23/2015 Ot V43.82 05/23/2015 Ot V76.12 05/23/2015 Ot 721.0 05/23/2015 Ot 724.02 05/23/2015 Ot V45.4 05/23/2015 Ot 162.9 05/23/2015 Ot 729.5 05/23/2015 Ot 599.70 05/23/2015 Ot 305.1 05/23/2015 Ot 721.0 05/23/2015 Ot 721.3 05/23/2015 Ot V10.11 05/23/2015 Ot V58.69 05/23/2015 Ot V67.1 05/23/2015 Ot V67.2 05/23/2015 SUSIE LEARYANDIE Ot 162.9 05/23/2015 SUSIE LEARYANDIE Ot 305.1 05/23/2015 SUSIE LEARY ANDIE Vega Ot 496 06/16/2015 ABE HELLER DO L Ot 246.9 06/16/2015 PINA LEARY ABE L Ot 272.4 06/21/2015 PINA LEARY ABE L Ot 246.9 06/21/2015 ELI HELLER DOISON L Ot 272.4 06/27/2015 PINA LEARY ABE L Ot E78.5 06/28/2015 ELI HELLER DOISON L Ot E78.5 07/13/2015 VIVIAN BARRERA APRN Ot F17.210 NICOTINE DEPENDENCE, CIGARETTES, UNCOMPL 07/13/2015 VIVIAN BARRERA APRN Ot J40 BRONCHITIS, NOT SPECIFIED ACUTE OR CH 07/13/2015 VIVIAN BARRERA APRN Ot J44.9 CHRONIC OBSTRUCTIVE PULMONARY DISEASE, U 07/13/2015 VIVIAN BARRERA APRN Ot R09.81 NASAL CONGESTION 07/13/2015 VIVIAN BARRERA APRN Ot R91.8 OTHER NONSPECIFIC ABNORMAL FINDING OF MARCELO 07/13/2015 VIVIAN BARRERA PRODUCT EXAMINER Ot Z85.118 PERSONAL HISTORY OF MALIGNANT NEOPLASM O 07/13/2015 VIVIAN BARRERA PRODUCT EXAMINER Ot 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] 08/03/2015 ALESSANDRO MARTINEZ DO P Ot M47.812 08/03/2015 ALESSANDRO MARTINEZ DO P Ot M50.20 08/09/2015 ALESSANDRO MARTINEZ DO P Ot M47.812 08/09/2015 ALESSANDRO MARTINEZ DO P Ot M50.20 09/29/2015 Ot 162.9 09/29/2015 Ot 729.5 09/29/2015 Ot 599.70 09/29/2015 Ot 305.1 09/29/2015 Ot 721.0 09/29/2015 Ot 721.3 09/29/2015 Ot V10.11 09/29/2015 Ot V58.69 09/29/2015 Ot V67.1 09/29/2015 Ot V67.2 09/29/2015 ANDIE RICHARDS DO Ot 162.9 09/29/2015 ANDIE RICHARDS DO M Ot 305.1 09/29/2015 ANDIE RICHARDS DO M Ot 496 09/29/2015 ABE HELLER DO L Ot 246.9 09/29/2015 ABE HELLER DO L Ot 272.4 09/29/2015 ELI HELLER DOISON L Ot E78.5 09/29/2015 ALESSANDRO MARTINEZ DO P Ot M47.812 09/29/2015 ALESSANDRO MARTINEZ DO P Ot M50.20 10/05/2015 NEHA ROSENBERG APRN Ot C34.90 10/05/2015 NEHA ROSENBERG APRN Ot F17.210 10/05/2015 NEHA ROSENBERG APRN Ot J44.9 10/05/2015 NEHA ROSENBERG APRN Ot R91.1 10/13/2015 NA NASH MD Ot K52.1 TOXIC GASTROENTERITIS AND COLITIS 10/13/2015 NA NASH MD Ot T36.95XA ADVERSE EFFECT OF UNSP SYSTEMIC ANTIBIOT 10/20/2015 NEHA ROSENBERG APRN Ot C34.90 10/20/2015 NEHA ROSENBERG APRN Ot F17.210 10/20/2015 NEHA ROSENBERG PRODUCT EXAMINER Ot J44.9 10/20/2015 NEHA ROSENBERG PRODUCT EXAMINER Ot R91.1 10/21/2015 CONNIE ÁLVAREZ BIT GATHERER Ot I48.0 10/21/2015 CONNIE ÁLVAREZ BIT GATHERER Ot J44.9 10/21/2015 BAICONNIE BROWNING L BIT GATHERER Ot R06.09 10/21/2015 BAICONNIE BROWNING BIT GATHERER Ot R07.9 10/21/2015 BAICONNIE BROWNING BIT GATHERER Ot I48.0 10/21/2015 BAICONNIE BROWNING BIT GATHERER Ot J44.9 10/21/2015 BAICONNIE BROWNING BIT GATHERER Ot R06.09 10/21/2015 BAICONNIE BROWNING BIT GATHERER Ot R07.9 10/26/2015 NEHA ROSENBERG PRODUCT EXAMINER Ot C34.90 10/26/2015 NEHA ROSENBERG PRODUCT EXAMINER Ot F17.210 10/26/2015 NEHA ROSENBERG PRODUCT EXAMINER Ot J44.9 10/26/2015 NEHA ROSENBERG PRODUCT EXAMINER Ot R91.1 11/10/2015 FRANCESCA SUMMERS, PARAM M Ot Z01.818 ENCOUNTER FOR OTHER PREPROCEDURAL EXAMIN 11/11/2015 FRANCESCA SUMMERS, PARAM M Ot Z01.818 11/14/2015 FRANCESCA SUMMERS, PARAM M Ot K22.2 ESOPHAGEAL OBSTRUCTION 11/14/2015 FRANCESCA SUMMERS, PARAM M Ot K25.9 GASTRIC ULCER, UNSP ACUTE OR CHRONIC, 11/14/2015 FRANCESCA SUMMERS, PARAM M Ot R19.7 DIARRHEA, UNSPECIFIED 11/15/2015 FRANCECSA SUMMERS, PARAM M Ot K22.2 11/15/2015 FRANCESCA SUMMERS, PARAM M Ot K25.9 11/15/2015 FRANCESCA SUMMERS, PARAM M Ot R19.7 11/15/2015 FRANCESCA SUMMERS, PARAM M Ot K22.2 11/15/2015 FRANCESCA SUMMERS, PARAM M Ot K25.9 11/15/2015 FRANCESCA SUMMERS, PARAM M Ot R19.7 03/23/2016 WILBERTO SUMMERS FACC, ALI FACP CCDS Ot C34.90 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 03/23/2016 WILBERTO SUMMERS [facility], [facility] I48.0 PAROXYSMAL ATRIAL FIBRILLATION 03/23/2016 WILBERTO SUMMERS FACC, [facility] CCDS Ot J43.8 OTHER EMPHYSEMA 03/27/2016 WILBERTO SUMMERS FACC, 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 03/28/2016 ANDIE RICHARDS DO Ot 305.1 TOBACCO USE DISORDER 03/28/2016 ANDIE RICHARDS DO Ot 496 CHR AIRWAY OBSTRUCT NEC 03/28/2016 ABE HELLER DO Ot 246.9 DISORDER OF THYROID NOS 03/28/2016 ABE HELLER DO Ot 272.4 HYPERLIPIDEMIA NEC/NOS 03/28/2016 ABE HELLER DO Ot E78.5 HYPERLIPIDEMIA, UNSPECIFIED 03/28/2016 ALESSANDRO MARTINEZ DO Ot M47.812 SPONDYLOSIS W/O MYELOPATHY OR RADICULOPA 03/28/2016 ALESSANDOR MARTINEZ DO Ot M50.20 OTHER CERVICAL DISC DISPLACEMENT, [facility] C 03/28/2016 NEHA ROSENBERG APRN Ot C34.90 MALIGNANT NEOPLASM OF [facility] PART OF [facility] 03/28/2016 NEHA ROSENBERG APRN Ot F17.210 NICOTINE DEPENDENCE, CIGARETTES, UNCOMPL 03/28/2016 NEHA ROSENBERG PRODUCT EXAMINER Ot J44.9 CHRONIC OBSTRUCTIVE PULMONARY DISEASE, U 03/28/2016 NEHA ROSENBERG APRN Ot R91.1 SOLITARY PULMONARY NODULE 03/28/2016 CONNIE ÁLVAREZ BIT GATHERER Ot I48.0 PAROXYSMAL ATRIAL FIBRILLATION 03/28/2016 CONNIE ÁLVAREZ BIT GATHERER Ot J44.9 CHRONIC OBSTRUCTIVE PULMONARY DISEASE, U 03/28/2016 CONNIE ÁLVAREZ BIT GATHERER Ot R06.09 OTHER FORMS OF DYSPNEA 03/28/2016 CONNIE ÁLVAREZ BIT GATHERER Ot R07.9 CHEST PAIN, UNSPECIFIED 03/28/2016 WILBERTO SUMMERS FACC, GIBRAN FACP CCDS Ot C34.90 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 03/28/2016 WILBERTO SUMMERS FACC, [facility] CCD[facility] Ot I48.0 PAROXYSMAL ATRIAL FIBRILLATION 03/28/2016 WILBERTO SUMMERS FACC, [facility] CCDS Ot J43.8 OTHER EMPHYSEMA 03/28/2016 VIVIAN BARRERA PRODUCT EXAMINER Ot 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 03/28/2016 VIVIAN BARRERA PRODUCT EXAMINER Ot F17.210 NICOTINE DEPENDENCE, CIGARETTES, UNCOMPL 03/28/2016 VIVIAN BARRERA PRODUCT EXAMINER Ot J44.9 CHRONIC OBSTRUCTIVE PULMONARY DISEASE, U 03/28/2016 VIVIAN BARRERA PRODUCT EXAMINER Ot M47.812 SPONDYLOSIS W/O MYELOPATHY OR RADICULOPA 03/28/2016 VIVIAN BARRERA APRN Ot M51.36 OTHER INTERVERTEBRAL DISC DEGENERATION, 03/28/2016 VIVIAN BARRERA APRN Ot R07.89 OTHER CHEST PAIN 03/28/2016 VIVIAN BARRERA APRN Ot R07.9 CHEST PAIN, UNSPECIFIED 03/28/2016 VIVIAN BARRERA PRODUCT EXAMINER Ot Z98.1 ARTHRODESIS STATUS 03/29/2016 VIVIAN BARRERA PRODUCT EXAMINER Ot 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 03/29/2016 VIVIAN BARRERA APRN Ot F17.210 NICOTINE DEPENDENCE, CIGARETTES, UNCOMPL 03/29/2016 VIVIAN BARRERA APRN Ot J44.9 CHRONIC OBSTRUCTIVE PULMONARY DISEASE, U 03/29/2016 VIVIAN BARRERA APRN Ot M47.812 SPONDYLOSIS W/O MYELOPATHY OR RADICULOPA 03/29/2016 VIVIAN BARRERA APRN Ot M51.36 OTHER INTERVERTEBRAL DISC DEGENERATION, 03/29/2016 VIVIAN BARRERA APRN Ot R07.89 OTHER CHEST PAIN 03/29/2016 VIVIAN BARRERA PRODUCT EXAMINER Ot R07.9 CHEST PAIN, UNSPECIFIED 03/29/2016 VIVIAN BARRERA APRN Ot Z98.1 ARTHRODESIS STATUS 04/16/2016 WILBERTO SUMMERS FACC, [facility] CCDS Ot C34.90 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 04/16/2016 WILBERTO SUMMERS FACC, [facility]AN [facility] CCDS Ot I48.0 PAROXYSMAL ATRIAL FIBRILLATION 04/16/2016 WILBERTO MD FACC, ALI FACP CCDS Ot J43.8 OTHER EMPHYSEMA 04/17/2016 WILBERTO MD FACC, ALI FACP CCDS Ot C34.90 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 04/17/2016 WILBERTO SUMMERS FACC, ALI FACP CCDS Ot I48.0 PAROXYSMAL ATRIAL FIBRILLATION 04/17/2016 WILBERTO SUMMERS FACC, ALI FACP CCDS Ot J43.8 OTHER EMPHYSEMA 04/26/2016 WILBERTO MD FACC, ALI FACP CCDS Ot I48.0 PAROXYSMAL ATRIAL FIBRILLATION 04/26/2016 WILBERTO MD FACC, ALI FACP CCDS Ot J43.8 OTHER EMPHYSEMA 04/26/2016 WILBERTO MD FACC, ALI FACP CCDS Ot R00.2 PALPITATIONS 05/16/2016 MEENAKSHI SUMMERS, ATMAN U Ot C34.90 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 05/16/2016 WILBERTO SUMMERS FACC, ALI FACP CCDS Ot I48.0 PAROXYSMAL ATRIAL FIBRILLATION 05/16/2016 WILBERTO SUMMERS FACC, ALI FACP CCDS Ot J43.8 OTHER EMPHYSEMA 05/16/2016 WILBERTO SUMMERS FACC, ALI FACP CCDS Ot R00.2 PALPITATIONS 05/16/2016 MEENAKSHI SUMMERS, ATMAN U Ot C34.90 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 05/23/2016 WILBERTO SUMMERS FACC, ALI FACP CCDS Ot I48.0 PAROXYSMAL ATRIAL FIBRILLATION 05/23/2016 WILBERTO SUMMERS FACC, ALI FACP CCDS Ot J43.8 OTHER EMPHYSEMA 05/23/2016 WILBERTO SUMMERS FACC, ALI FACP CCDS Ot R00.2 PALPITATIONS 05/24/2016 KEM PITTMAN MD Ot C34.90 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 05/24/2016 KEM PITTMAN MD Ot M89.8X0 OTHER SPECIFIED DISORDERS OF BONE, MULTI 05/29/2016 KEM PITTMAN MD Ot C34.90 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 05/29/2016 KEM PITTMAN MD Ot M89.8X0 OTHER SPECIFIED DISORDERS OF BONE, MULTI 06/04/2016 ANDIE RICHARDS DO Ot 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 06/04/2016 ANDIE RICHARDS DO Ot 305.1 TOBACCO USE DISORDER 06/04/2016 ANDIE RICHARDS DO Ot 496 CHR AIRWAY OBSTRUCT NEC 06/04/2016 ABE HELLER DO Ot 246.9 DISORDER OF THYROID NOS 06/04/2016 ABE HELLER DO L Ot 272.4 HYPERLIPIDEMIA NEC/NOS 06/04/2016 ABE HELLER DO L Ot E78.5 HYPERLIPIDEMIA, UNSPECIFIED 06/04/2016 ALESSANDRO MARTINEZ DO Ot M47.812 SPONDYLOSIS W/O MYELOPATHY OR RADICULOPA 06/04/2016 ALESSANDRO MARTINEZ DO Ot M50.20 OTHER CERVICAL DISC DISPLACEMENT, [facility] C 06/04/2016 NEHA ROSENBERG PRODUCT EXAMINER Ot C34.90 MALIGNANT NEOPLASM OF UNSP PART OF [facility] 06/04/2016 NEHA ROSENBERG PRODUCT EXAMINER Ot F17.210 NICOTINE DEPENDENCE, CIGARETTES, UNCOMPL 06/04/2016 NEHA ROSENBERG PRODUCT EXAMINER Ot J44.9 CHRONIC OBSTRUCTIVE PULMONARY DISEASE, U 06/04/2016 NEHA ROSENBERG PRODUCT EXAMINER Ot R91.1 SOLITARY PULMONARY NODULE 06/04/2016 JUVENCIOCONNIE BROWNING Luz Marina BIT GATHERER Ot I48.0 PAROXYSMAL ATRIAL FIBRILLATION 06/04/2016 JUVENCIONALLELY CONNIE Luz Marina BIT GATHERER Ot J44.9 CHRONIC OBSTRUCTIVE PULMONARY DISEASE, U 06/04/2016 JUVENCIOCONNIE BROWNING Luz Marina BIT GATHERER Ot R06.09 OTHER FORMS OF DYSPNEA 06/04/2016 JUVENCIOCONNIE BROWNING Luz Marina BIT GATHERER Ot R07.9 CHEST PAIN, UNSPECIFIED 06/04/2016 WILBERTO SUMMERS FACC, GIBRAN FACP CCDS Ot C34.90 MALIGNANT NEOPLASM OF UNSP [facility] 06/04/2016 WILBERTO SUMMERS FACC, ALI FACP CCDS Ot I48.0 PAROXYSMAL ATRIAL FIBRILLATION 06/04/2016 WILBERTO SUMMERS FACC, ALI FACP CCDS Ot J43.8 OTHER EMPHYSEMA 06/04/2016 KEM PITTMAN MD Ot C34.90 MALIGNANT NEOPLASM OF UNSP PART OF [facility] 06/04/2016 ZAIN SUMMERS, KEM Ot M89.8X0 OTHER SPECIFIED DISORDERS OF BONE, MULTI 06/04/2016 WILBERTO SUMMERS FACC, ALI FACP CCDS Ot I48.0 PAROXYSMAL ATRIAL FIBRILLATION 06/04/2016 WILBERTO SUMMERS FACC, ALI FACP CCDS Ot J43.8 OTHER EMPHYSEMA 06/04/2016 WILBERTO SUMMERS [facility], ALI FACP CCDS Ot R00.2 PALPITATIONS 06/04/2016 MEENAKSHI SUMMERS, ATMAN U Ot C34.90 MALIGNANT NEOPLASM OF UNSP PART OF [facility] 06/05/2016 ANDIE RICHARDS DO Ot 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 06/05/2016 ANDIE RICHARDS DO Ot 305.1 TOBACCO USE DISORDER 06/05/2016 ANDIE RICHARDS DO Ot 496 CHR AIRWAY OBSTRUCT NEC 06/05/2016 HELLER DO ABE L Ot 246.9 DISORDER OF THYROID NOS 06/05/2016 HELLER DO, ABE L Ot 272.4 HYPERLIPIDEMIA NEC/NOS 06/05/2016 PINA LEARY ABE L Ot E78.5 HYPERLIPIDEMIA, UNSPECIFIED 06/05/2016 ALESSANDRO MARTINEZ DO Ot M47.812 SPONDYLOSIS W/O MYELOPATHY OR RADICULOPA 06/05/2016 ALESSANDRO MARTINEZ DO Ot M50.20 OTHER CERVICAL DISC DISPLACEMENT, [facility] 06/05/2016 NEHA ROSENBERG PRODUCT EXAMINER Ot C34.90 MALIGNANT NEOPLASM OF UNSP PART OF [facility] 06/05/2016 NEHA ROSENBERG PRODUCT EXAMINER Ot F17.210 NICOTINE DEPENDENCE, CIGARETTES, UNCOMPL 06/05/2016 NEHA ROESNBERG PRODUCT EXAMINER Ot J44.9 CHRONIC OBSTRUCTIVE PULMONARY DISEASE, U 06/05/2016 NEHA ROSENBERG PRODUCT EXAMINER Ot R91.1 SOLITARY PULMONARY NODULE 06/05/2016 CONNIE ÁLVAREZ BIT GATHERER Ot I48.0 PAROXYSMAL ATRIAL FIBRILLATION 06/05/2016 CONNIE ÁLVAREZ BIT GATHERER Ot J44.9 CHRONIC OBSTRUCTIVE PULMONARY DISEASE, U 06/05/2016 CONNIE ÁLVAREZ BIT GATHERER Ot R06.09 OTHER FORMS OF DYSPNEA 06/05/2016 CONNIE ÁLVAREZ L BIT GATHERER Ot R07.9 CHEST PAIN, UNSPECIFIED 06/05/2016 WILBERTO SUMMERS [facility], [facility] FACP CCDS Ot C34.90 MALIGNANT NEOPLASM OF UNSP PART OF [facility] 06/05/2016 WILBERTO KELLEY, [facility] FACP CCDS Ot I48.0 PAROXYSMAL ATRIAL FIBRILLATION 06/05/2016 WILBERTO KELLEY, [facility] CCDS Ot J43.8 OTHER EMPHYSEMA 06/05/2016 ZAIN SUMMERS, KEM Ot C34.90 MALIGNANT NEOPLASM OF UNSP PART [facility] 06/05/2016 ZAIN SUMMERS, KEM Ot M89.8X0 OTHER SPECIFIED DISORDERS OF BONE, MULTI 06/05/2016 WILBERTO SUMMERS FAC, ALI FAC CCDS Ot I48.0 PAROXYSMAL ATRIAL FIBRILLATION 06/05/2016 WILBERTO SUMMERS FACC, ALI FACP CCDS Ot J43.8 OTHER EMPHYSEMA 06/05/2016 WILBERTO SUMMERS FACC, ALI [facility] CCDS Ot R00.2 PALPITATIONS 06/05/2016 MEENAKSHI SUMMERS, ATMCRISTAINA U Ot C34.90 MALIGNANT NEOPLASM OF UNSP PART [facility] 06/05/2016 CHET LEARY SHELLEY M Ot I48.0 PAROXYSMAL ATRIAL FIBRILLATION 06/11/2016 SHELLEY ROSENBERG DO M Ot F41.9 ANXIETY DISORDER, UNSPECIFIED 06/11/2016 SHELLEY ROSENBERG DO M Ot G89.4 CHRONIC PAIN SYNDROME 06/11/2016 CHET LEARY SHELLEY M Ot I48.0 PAROXYSMAL ATRIAL FIBRILLATION 06/11/2016 CHET LEARY SHELLEY M Ot M47.812 SPONDYLOSIS W/O MYELOPATHY OR RADICULOPA 06/21/2016 MEENAKSHI SUMMERS, ATMCRISTIANA U Ot C34.90 MALIGNANT NEOPLASM OF UNSP [facility] 06/28/2016 SHELLEY ROSENBERG DO M Ot F41.9 ANXIETY DISORDER, UNSPECIFIED 06/28/2016 CHET LEARY SHELLEY M Ot G89.4 CHRONIC PAIN SYNDROME 06/28/2016 SHELLEY ROSENBERG DO M Ot I48.0 PAROXYSMAL ATRIAL FIBRILLATION 06/28/2016 CHET LEARY SHELLEY M Ot M47.812 SPONDYLOSIS W/O MYELOPATHY OR RADICULOPA 07/03/2016 CHET LEARY SHELLEY M Ot F41.9 ANXIETY DISORDER, UNSPECIFIED 07/03/2016 CHET LEARY SHELLEY M Ot G89.4 CHRONIC PAIN SYNDROME 07/03/2016 CHET LEARY SHELLEY M Ot I48.0 PAROXYSMAL ATRIAL FIBRILLATION 07/03/2016 CHET LEARY SHELLEY M Ot M47.812 SPONDYLOSIS W/O MYELOPATHY OR RADICULOPA 07/10/2016 MEENAKSHI SUMMERS, ATMCRISTIANA U Ot C34.90 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 07/13/2016 WILBERTO KELLEY, [facility] CCDS Ot I48.0 PAROXYSMAL ATRIAL FIBRILLATION 07/13/2016 WILBERTO SUMMERS FAC, [facility] CCDS Ot J43.8 OTHER EMPHYSEMA 07/13/2016 WILBERTO SUMMERS FAC, [facility] CCDS Ot R00.2 PALPITATIONS 07/13/2016 ZAIN SUMMERS, KEM Ot C34.90 MALIGNANT NEOPLASM OF UNSP PART OF [facility] 07/13/2016 ZAIN SUMMERS, KEM Ot M89.8X0 OTHER SPECIFIED DISORDERS OF BONE, MULTI 08/14/2016 ANDIE RICHARDS DO Ot 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 08/14/2016 ANDIE RICHARDS DO Ot 305.1 TOBACCO USE DISORDER 08/14/2016 ANDIE RICHARDS DO Ot 496 CHR AIRWAY OBSTRUCT NEC 08/14/2016 ABE HELLER DO Ot 246.9 DISORDER OF THYROID NOS 08/14/2016 ABE HELLER DO Ot 272.4 HYPERLIPIDEMIA NEC/NOS 08/14/2016 ABE HELLER DO Ot E78.5 HYPERLIPIDEMIA, UNSPECIFIED 08/14/2016 ALESSANDRO MARTINEZ DO Ot M47.812 SPONDYLOSIS W/O MYELOPATHY OR RADICULOPA 08/14/2016 ALESSANDRO MARTINEZ DO Ot M50.20 OTHER CERVICAL DISC DISPLACEMENT, [facility] C 08/14/2016 NEHA ROSENBERG APRN Ot C34.90 MALIGNANT NEOPLASM OF UNSP PART OF [facility] 08/14/2016 NEHA ROSENBERG APRN Ot F17.210 NICOTINE DEPENDENCE, CIGARETTES, UNCOMPL 08/14/2016 NEHA ROSENBERG PRODUCT EXAMINER Ot J44.9 CHRONIC OBSTRUCTIVE PULMONARY DISEASE, U 08/14/2016 NEHA ROSENBERG PRODUCT EXAMINER Ot R91.1 SOLITARY PULMONARY NODULE 08/14/2016 CONNIE ÁLVAREZ BIT GATHERER Ot I48.0 PAROXYSMAL ATRIAL FIBRILLATION 08/14/2016 CONNIE ÁLVAREZ BIT GATHERER Ot J44.9 CHRONIC OBSTRUCTIVE PULMONARY DISEASE, U 08/14/2016 CONNIE ÁLVAREZ BIT GATHERER Ot R06.09 OTHER FORMS OF DYSPNEA 08/14/2016 CONNIE ÁLVAREZ BIT GATHERER Ot R07.9 CHEST PAIN, UNSPECIFIED 08/14/2016 WILBERTO SUMMERS FACC, ALI FACP CCDS Ot C34.90 MALIGNANT NEOPLASM OF UNSP PART OF [facility] 08/14/2016 WILBERTO SUMMERS FACC, ALI FACP CCDS Ot I48.0 PAROXYSMAL ATRIAL FIBRILLATION 08/14/2016 WILBERTO SUMMERS FACC, ALI FACP CCDS Ot J43.8 OTHER EMPHYSEMA 08/14/2016 ZAIN SUMMERS, KEM Ot C34.90 MALIGNANT [facility]LASM OF UNSP [facility] 08/14/2016 ZAIN SUMMERS, KEM Ot M89.8X0 OTHER SPECIFIED DISORDERS OF BONE, MULTI 08/14/2016 WILBERTO SUMMERS FACC, ALI FACP CCDS Ot I48.0 PAROXYSMAL ATRIAL FIBRILLATION 08/14/2016 WILBERTO SUMMERS FACC, ALI FACP CCDS Ot J43.8 OTHER EMPHYSEMA 08/14/2016 WILBERTO SUMMERS FACC, ALI FACP CCDS Ot R00.2 PALPITATIONS 08/14/2016 MEENAKSHI SUMMERS, ATMAN U Ot C34.90 MALIGNANT NEOPLASM OF UNSP PART OF [facility] 08/14/2016 SHELLEY ROSENBERG DO Ot F41.9 ANXIETY DISORDER, UNSPECIFIED 08/14/2016 SHELLEY ROSENBERG DO Ot G89.4 CHRONIC PAIN SYNDROME 08/14/2016 ROSENBERGSHELLEY VIEIRA DO Ot I48.0 PAROXYSMAL ATRIAL FIBRILLATION 08/14/2016 SHELLEY ROSENBERG DO Ot M47.812 SPONDYLOSIS W/O MYELOPATHY OR RADICULOPA 08/14/2016 SIDRA STOLL MD Ot I48.2 CHRONIC ATRIAL FIBRILLATION 08/14/2016 SIDRA STOLL MD Ot J01.90 ACUTE SINUSITIS, UNSPECIFIED 08/14/2016 SIDRA STOLL MD Ot J40 BRONCHITIS, NOT SPECIFIED ACUTE OR CH 08/14/2016 SIDRA STOLL MD, Ot J44.9 CHRONIC OBSTRUCTIVE PULMONARY DISEASE, U 08/14/2016 SIDRA STOLL MD Ot R05 COUGH 08/14/2016 SIDRA STOLL MD Ot 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 08/14/2016 SIDRA STOLL MD Ot Z79.899 OTHER PRISON (CURRENT) DRUG THERAPY 08/14/2016 SIDRA STOLL MD, Ot Z85.118 PERSONAL HISTORY OF MALIGNANT NEOPLASM O 08/14/2016 SIDRA STOLL MD Ot 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] 08/15/2016 SIDRA STOLL MD Ot I48.2 CHRONIC ATRIAL FIBRILLATION 08/15/2016 SIDRA STOLL MD Ot J01.90 ACUTE SINUSITIS, UNSPECIFIED 08/15/2016 SIDRA STOLL MD Ot J40 BRONCHITIS, NOT SPECIFIED ACUTE OR CH 08/15/2016 SIDRA STOLL MD Ot J44.9 CHRONIC OBSTRUCTIVE PULMONARY DISEASE, U 08/15/2016 SIDRA STOLL MD Ot R05 COUGH 08/15/2016 SIDRA STOLL MD Ot 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 08/15/2016 SIDRA STOLL MD Ot 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 08/15/2016 SIDRA STOLL MD Ot Z85.118 PERSONAL HISTORY OF MALIGNANT NEOPLASM O 08/15/2016 SIDRA STOLL MD Ot 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] 10/04/2016 MEENAKSHI SUMMERS, ATMCRISTIANA U Ot 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 10/11/2016 MEENAKSHI SUMMERS, ATMCRISTIANA U Ot 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 10/24/2016 JOSEPHINE KRAMER MD S Ot 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 10/24/2016 JOSEPHINE KRAMER MD S Ot R91.1 SOLITARY PULMONARY NODULE 10/24/2016 JOSEPHINE KRAMER MD S Ot 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 10/24/2016 JOSEPHINE KRAMER MD S Ot R91.1 SOLITARY PULMONARY NODULE 11/01/2016 Ot Z12.31 ENCNTR SCREEN MAMMOGRAM FOR MALIGNANT NE 11/01/2016 Ot N88.8 OTHER SPECIFIED NONINFLAMMATORY DISORDER 11/01/2016 Ot Z12.31 ENCNTR SCREEN MAMMOGRAM FOR MALIGNANT NE 11/22/2016 Ot N88.8 OTHER SPECIFIED NONINFLAMMATORY DISORDER 11/22/2016 Ot Z12.31 ENCNTR SCREEN MAMMOGRAM FOR MALIGNANT NE 11/28/2016 Ot N88.8 OTHER SPECIFIED NONINFLAMMATORY DISORDER 11/28/2016 Ot Z12.31 ENCNTR SCREEN MAMMOGRAM FOR MALIGNANT NE 11/29/2016 LAKESHIA ARRIAGA MD N Ot R93.8 ABNORMAL FINDINGS ON DIAGNOSTIC IMAGING 11/29/2016 LAKESHIA ARRIAGA MD Ot Z01.818 ENCOUNTER FOR OTHER PREPROCEDURAL EXAMIN 11/29/2016 LAKESHIA ARRIAGA MD N Ot Z11.2 ENCOUNTER FOR SCREENING FOR OTHER BACTER 11/29/2016 LAKESHIA ARRIAGA MD N Ot Z85.118 PERSONAL HISTORY OF MALIGNANT NEOPLASM O 11/30/2016 LAKESHIA ARRIAGA MD Ot R93.8 ABNORMAL FINDINGS ON DIAGNOSTIC IMAGING 11/30/2016 LAKESHIA ARRIAGA MD Ot Z01.818 ENCOUNTER FOR OTHER PREPROCEDURAL EXAMIN 11/30/2016 LAKESHIA ARRIAGA MD Ot Z11.2 ENCOUNTER FOR SCREENING FOR OTHER BACTER 11/30/2016 LAKESHIA ARRIAGA MD Ot Z85.118 PERSONAL HISTORY OF MALIGNANT NEOPLASM O 12/03/2016 LAKESHIA ARRIAGA MD Ot R93.5 ABN FINDINGS ON DX IMAGING OF ABD REGION 12/03/2016 LAKESHIA ARRIAGA MD N Ot Z78.0 ASYMPTOMATIC MENOPAUSAL STATE 12/03/2016 JOSEPHINE KRAMER MD S Ot 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 12/03/2016 JOSEPHINE KRAMER MD S Ot R91.1 SOLITARY PULMONARY NODULE 12/05/2016 LAKESHIA ARRIAGA MD N Ot R93.5 ABN FINDINGS ON DX IMAGING OF ABD REGION 12/05/2016 LAKESHIA ARRIAGA MD N Ot Z78.0 ASYMPTOMATIC MENOPAUSAL STATE 12/14/2016 JOSEPHINE KRAMER MD S Ot 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 12/14/2016 JOSEPHINE KRAMER MD S Ot R91.1 SOLITARY PULMONARY NODULE 12/21/2016 VIVIAN BARRERA APRN Ot I48.2 CHRONIC ATRIAL FIBRILLATION 12/21/2016 VIVIAN BARRERA APRN Ot J44.9 CHRONIC OBSTRUCTIVE PULMONARY DISEASE, U 12/21/2016 VIVIAN BARRERA APRN Ot M54.6 PAIN IN THORACIC SPINE 12/21/2016 VIVIAN BARRERA APRN Ot R07.89 OTHER CHEST PAIN 12/21/2016 VIVIAN BARRERA APRN Ot R07.9 CHEST PAIN, UNSPECIFIED 12/21/2016 VIVIAN BARRERA PRODUCT EXAMINER Ot 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 12/23/2016 VIVIAN BARRERA PRODUCT EXAMINER Ot I48.2 CHRONIC ATRIAL FIBRILLATION 12/23/2016 VIVIAN BARRERA PRODUCT EXAMINER Ot J44.9 CHRONIC OBSTRUCTIVE PULMONARY DISEASE, U 12/23/2016 VIVIAN BARRERA PRODUCT EXAMINER Ot M54.6 PAIN IN THORACIC SPINE 12/23/2016 VIVIAN BARRERA PRODUCT EXAMINER Ot R07.89 OTHER CHEST PAIN 12/23/2016 VIVIAN BARRERA PRODUCT EXAMINER Ot R07.9 CHEST PAIN, UNSPECIFIED 12/23/2016 VIVIAN BARRERA PRODUCT EXAMINER Ot Z79.899 OTHER PRISON (CURRENT) DRUG THERAPY 01/30/2017 ANDIE RICHARDS DO Ot 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 01/30/2017 ANDIE RICHARDS DO Ot 305.1 TOBACCO USE DISORDER 01/30/2017 ANDIE RICHARDS DO Ot 496 CHR AIRWAY OBSTRUCT NEC 01/30/2017 ABE HELLER DO Ot 246.9 DISORDER OF THYROID NOS 01/30/2017 ABE HELLER DO Ot 272.4 HYPERLIPIDEMIA NEC/NOS 01/30/2017 ABE HELLER DO Ot E78.5 HYPERLIPIDEMIA, UNSPECIFIED 01/30/2017 ALESSANDRO MARTINEZ DO Ot M47.812 SPONDYLOSIS W/O MYELOPATHY OR RADICULOPA 01/30/2017 ALESSANDRO MARTINEZ DO Ot M50.20 OTHER CERVICAL DISC DISPLACEMENT, [facility] C 01/30/2017 NEHA ROSENBERG APRN Ot C34.90 MALIGNANT NEOPLASM OF [facility] PART OF [facility] 01/30/2017 NEHA ROSENBERG PRODUCT EXAMINER Ot F17.210 NICOTINE DEPENDENCE, CIGARETTES, UNCOMPL 01/30/2017 NEHA ROSENBERG PRODUCT EXAMINER Ot J44.9 CHRONIC OBSTRUCTIVE PULMONARY DISEASE, U 01/30/2017 NEHA ROSENBERG APRN Ot R91.1 SOLITARY PULMONARY NODULE 01/30/2017 CONNIE ÁLVAREZ BIT GATHERER Ot I48.0 PAROXYSMAL ATRIAL FIBRILLATION 01/30/2017 CONNIE ÁLVAREZ BIT GATHERER Ot J44.9 CHRONIC OBSTRUCTIVE PULMONARY DISEASE, U 01/30/2017 CONNIE ÁLVAREZ BIT GATHERER Ot R06.09 OTHER FORMS OF DYSPNEA 01/30/2017 CONNIE ÁLVAREZ BIT GATHERER Ot R07.9 CHEST PAIN, UNSPECIFIED 01/30/2017 WILBERTO SUMMERS FAC, ALI FACP CCDS Ot C34.90 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 01/30/2017 WILBERTO SUMMERS FAC, ALI FACP CCDS Ot I48.0 PAROXYSMAL ATRIAL FIBRILLATION 01/30/2017 WILBERTO SUMMERS FACC, ALI FACP CCDS Ot J43.8 OTHER EMPHYSEMA 01/30/2017 ZAIN SUMMERS, KEM Ot C34.90 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 01/30/2017 KEM PITTMAN MD Ot M89.8X0 OTHER SPECIFIED DISORDERS OF BONE, MULTI 01/30/2017 WILBERTO SUMMERS FAC, ALI FACP CCDS Ot I48.0 PAROXYSMAL ATRIAL FIBRILLATION 01/30/2017 WILBERTO SUMMERS FACC, ALI FACP CCDS Ot J43.8 OTHER EMPHYSEMA 01/30/2017 WILBERTO SUMMERS FAC, ALI FACP CCDS Ot R00.2 PALPITATIONS 01/30/2017 MEENAKSHI SUMMERS, KHALIDA U Ot C34.90 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 01/30/2017 SHELLEY ROSENBERG DO Ot F41.9 ANXIETY DISORDER, UNSPECIFIED 01/30/2017 SHELLEY ROSENBERG DO Ot G89.4 CHRONIC PAIN SYNDROME 01/30/2017 SHELLEY ROSENBERG DO Ot I48.0 PAROXYSMAL ATRIAL FIBRILLATION 01/30/2017 SHELLEY ROSENBERG DO Ot M47.812 SPONDYLOSIS W/O MYELOPATHY OR RADICULOPA 01/30/2017 MEENAKSHI SUMMERS, KHALIDA U Ot 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 01/30/2017 JOSEPHINE KRAMER MD S Ot 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 01/30/2017 JOSEPHINE KRAMER MD S Ot R91.1 SOLITARY PULMONARY NODULE 01/30/2017 Ot N88.8 OTHER SPECIFIED NONINFLAMMATORY DISORDER 01/30/2017 Ot Z12.31 ENCNTR SCREEN MAMMOGRAM FOR MALIGNANT NE 01/30/2017 SHELLEY ROSENBERG DO Ot K59.00 CONSTIPATION, UNSPECIFIED 01/30/2017 SHELLEY ROSENBERG DO Ot R53.83 OTHER FATIGUE 01/30/2017 SHELLEY ROSENBERG DO Ot Z11.59 ENCOUNTER FOR SCREENING FOR OTHER VIRAL 02/07/2017 SHELLEY ROSENBERG DO Ot K59.00 CONSTIPATION, UNSPECIFIED 02/07/2017 SHELLEY ROSENBERG DO Ot R53.83 OTHER FATIGUE 02/07/2017 SHELLEY ROSENBERG DO Ot Z11.59 ENCOUNTER FOR SCREENING FOR OTHER VIRAL 02/12/2017 SHELLEY ROSENBERG DO Ot K59.00 CONSTIPATION, UNSPECIFIED 02/12/2017 SHELLEY ROSENBERG DO Ot R53.83 OTHER FATIGUE 02/12/2017 SHELLEY ROSENBERG DO Ot Z11.59 ENCOUNTER FOR SCREENING FOR OTHER VIRAL 02/19/2017 JOSEPHINE KRAMER MD Ot 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 02/19/2017 JOSEPHINE KRAMER MD Ot R91.1 SOLITARY PULMONARY NODULE 02/19/2017 JOSEPHINE KRAMER MD S Ot 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] 02/27/2017 JOSEPHINE KRAMER MD Ot 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 02/27/2017 JOSEPHINE KRAMER MD S Ot R91.1 SOLITARY PULMONARY NODULE 02/27/2017 JOSEPHINE KRAMER MD S Ot 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] 05/15/2017 ANDIE RICHARDS DO Ot 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 05/15/2017 ANDIE RICHARDS DO Ot 305.1 TOBACCO USE DISORDER 05/15/2017 ANDIE RICHARDS DO Ot 496 CHR AIRWAY OBSTRUCT NEC 05/15/2017 ABE HELLER DO Ot 246.9 DISORDER OF THYROID NOS 05/15/2017 ABE HELLER DO Ot 272.4 HYPERLIPIDEMIA NEC/NOS 05/15/2017 ABE HELLER DO Ot E78.5 HYPERLIPIDEMIA, UNSPECIFIED 05/15/2017 ALESSANDRO MARTINEZ DO Ot M47.812 SPONDYLOSIS W/O MYELOPATHY OR RADICULOPA 05/15/2017 ALESSANDRO MARTINEZ DO Ot M50.20 OTHER CERVICAL DISC DISPLACEMENT, UNSP C 05/15/2017 NEHA ROSENBERG APRN Ot C34.90 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 05/15/2017 NEHA ROSENBERG APRN Ot F17.210 NICOTINE DEPENDENCE, CIGARETTES, UNCOMPL 05/15/2017 NEHA ROSENBERG APRN Ot J44.9 CHRONIC OBSTRUCTIVE PULMONARY DISEASE, U 05/15/2017 NEHA ROSENBERG PRODUCT EXAMINER Ot R91.1 SOLITARY PULMONARY NODULE 05/15/2017 CONNIE ÁLVAREZ BIT GATHERER Ot I48.0 PAROXYSMAL ATRIAL FIBRILLATION 05/15/2017 CONNIE ÁLVAERZ BIT GATHERER Ot J44.9 CHRONIC OBSTRUCTIVE PULMONARY DISEASE, U 05/15/2017 BAICONNIE BROWNING BIT GATHERER Ot R06.09 OTHER FORMS OF DYSPNEA 05/15/2017 BAICONNIE BROWNING BIT GATHERER Ot R07.9 CHEST PAIN, UNSPECIFIED 05/15/2017 WILBERTO SUMMERS FACC, ALI FACP CCDS Ot C34.90 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 05/15/2017 WILBERTO SUMMERS FACC, ALI FACP CCDS Ot I48.0 PAROXYSMAL ATRIAL FIBRILLATION 05/15/2017 WILBERTO SUMMERS FACC, ALI FACP CCDS Ot J43.8 OTHER EMPHYSEMA 05/15/2017 ZAIN SUMMERS, KEM Ot C34.90 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 05/15/2017 ZAIN SUMMERS, KEM Ot M89.8X0 OTHER SPECIFIED DISORDERS OF BONE, MULTI 05/15/2017 WILBERTO SUMMERS FACC, ALI FACP CCDS Ot I48.0 PAROXYSMAL ATRIAL FIBRILLATION 05/15/2017 WILBERTO SUMMERS FACC, ALI FACP CCDS Ot J43.8 OTHER EMPHYSEMA 05/15/2017 WILBERTO SUMMERS FACC, ALI FACP CCDS Ot R00.2 PALPITATIONS 05/15/2017 MEENAKSHI SUMMERS, ATMCRISTIANA U Ot C34.90 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 05/15/2017 SHELLEY ROSENBERG DO Ot F41.9 ANXIETY DISORDER, UNSPECIFIED 05/15/2017 SHELLEY ROSENBERG DO Ot G89.4 CHRONIC PAIN SYNDROME 05/15/2017 SHELLEY ROSENBERG DO Ot I48.0 PAROXYSMAL ATRIAL FIBRILLATION 05/15/2017 SHELLEY ROSENBERG DO Ot M47.812 SPONDYLOSIS W/O MYELOPATHY OR RADICULOPA 05/15/2017 MEENAKSHI SUMMERS, ATMCRISTIANA U Ot 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 05/15/2017 NIA SUMMERS, JOSEPHINE S Ot 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 05/15/2017 JOSEPHINE KRAMER MD Ot R91.1 SOLITARY PULMONARY NODULE 05/15/2017 Ot N88.8 OTHER SPECIFIED NONINFLAMMATORY DISORDER 05/15/2017 Ot Z12.31 ENCNTR SCREEN MAMMOGRAM FOR MALIGNANT NE 05/15/2017 JOSEPHINE KRAMER MD Ot 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 05/15/2017 JOSEPHINE KRAMER MD Ot R91.1 SOLITARY PULMONARY NODULE 05/15/2017 JOSEPHINE KRAMER MD Ot 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] 05/15/2017 SHELLEY ROSENBERG DO Ot K59.00 CONSTIPATION, UNSPECIFIED 05/15/2017 SHELLEY ROSENBERG DO M Ot R53.83 OTHER FATIGUE 05/15/2017 SHELLEY ROSENBERG DO Ot Z11.59 ENCOUNTER FOR SCREENING FOR OTHER VIRAL 05/22/2017 EDU GUPTA MD Ot C34.90 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 05/22/2017 EDU GUPTA MD Ot J43.9 EMPHYSEMA, UNSPECIFIED 05/22/2017 EDU GUPTA MD Ot R92.8 OTH ABN AND INCONCLUSIVE FINDINGS ON DX 06/10/2017 EDU GUPTA MD Ot C34.90 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 06/10/2017 EDU GUPTA MD Ot J43.9 EMPHYSEMA, UNSPECIFIED 06/10/2017 EDU GUPTA MD Ot R92.8 OTH ABN AND INCONCLUSIVE FINDINGS ON DX 06/20/2017 JOSEPHINE KRAMER MD Ot C34.2 MALIGNANT NEOPLASM OF MIDDLE LOBE, BRONC 06/20/2017 JOSEPHINE KRAMER MD Ot 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, UNSPECIFIED ORGANISM 06/20/2017 JOSEPHINE KRAMER MD Ot J30.9 ALLERGIC RHINITIS, UNSPECIFIED 06/20/2017 JOSEPHINE KRAMER MD Ot J44.1 CHRONIC OBSTRUCTIVE PULMONARY DISEASE W 06/20/2017 JOSEPHINE KRAMER MD Ot 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] 06/20/2017 JOSEPHINE KRAMER MD Ot C34.2 MALIGNANT NEOPLASM OF MIDDLE LOBE, BRONC 06/20/2017 NIA MD, JOSEPHINE S Ot 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, UNSPECIFIED ORGANISM 06/20/2017 JOSEPHINE KRAMER MD S Ot J30.9 ALLERGIC RHINITIS, UNSPECIFIED 06/20/2017 JOSEPHINE KRAMER MD Ot J44.1 CHRONIC OBSTRUCTIVE PULMONARY DISEASE W 06/20/2017 JOSEPHINE KRAMER MD S Ot 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] 06/27/2017 EDU GUPTA MD Ot C34.90 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 06/27/2017 EDU GUPTA MD Ot J43.9 EMPHYSEMA, UNSPECIFIED 06/27/2017 EDU GUPTA MD Ot R92.8 OTH ABN AND INCONCLUSIVE FINDINGS ON DX 06/27/2017 JOSEPHINE KRAMER MD, Ot C34.2 MALIGNANT NEOPLASM OF MIDDLE LOBE, BRONC 06/27/2017 JOSEPHINE KRAMER MD S Ot 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, UNSPECIFIED ORGANISM 06/27/2017 JOSEPHINE KRAMER MD Ot J30.9 ALLERGIC RHINITIS, UNSPECIFIED 06/27/2017 JOSEPHINE KRAMER MD, Ot J44.1 CHRONIC OBSTRUCTIVE PULMONARY DISEASE W 06/27/2017 JOSEPHINE KRAMER MD Ot 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] 07/05/2017 SIDRA STOLL MD Ot F17.210 NICOTINE DEPENDENCE, CIGARETTES, UNCOMPL 07/05/2017 SIDRA STOLL MD Ot F32.9 MAJOR DEPRESSIVE DISORDER, SINGLE EPISOD 07/05/2017 SIDRA STOLL MD Ot F41.9 ANXIETY DISORDER, UNSPECIFIED 07/05/2017 SIDRA STOLL MD Ot J40 BRONCHITIS, NOT SPECIFIED ACUTE OR CH 07/05/2017 SIDRA STOLL MD Ot J44.9 CHRONIC OBSTRUCTIVE PULMONARY DISEASE, U 07/05/2017 SIDRA STOLL MD Ot K58.9 IRRITABLE BOWEL SYNDROME WITHOUT DIARRHE 07/05/2017 SIDRA STOLL MD Ot R06.02 SHORTNESS OF BREATH 07/05/2017 SIDRA STOLL MD Ot Z85.118 PERSONAL HISTORY OF MALIGNANT NEOPLASM O 07/05/2017 SIDRA STOLL MD Ot 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] 07/05/2017 SIDRA STOLL MD Ot Z98.51 TUBAL LIGATION STATUS 07/08/2017 SIDRA STOLL MD Ot F17.210 NICOTINE DEPENDENCE, CIGARETTES, UNCOMPL 07/08/2017 SIDRA STOLL MD Ot F32.9 MAJOR DEPRESSIVE DISORDER, SINGLE EPISOD 07/08/2017 SIDRA STOLL MD, Ot F41.9 ANXIETY DISORDER, UNSPECIFIED 07/08/2017 SIDRA STOLL MD, Ot J40 BRONCHITIS, NOT SPECIFIED ACUTE OR CH 07/08/2017 SIDRA STOLL MD, Ot J44.9 CHRONIC OBSTRUCTIVE PULMONARY DISEASE, U 07/08/2017 SIDRA STOLL MD, Ot K58.9 IRRITABLE BOWEL SYNDROME WITHOUT DIARRHE 07/08/2017 SIDRA STOLL MD Ot R06.02 SHORTNESS OF BREATH 07/08/2017 SIDRA STOLL MD, Ot Z85.118 PERSONAL HISTORY OF MALIGNANT NEOPLASM O 07/08/2017 SIDRA STOLL MD Ot 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] 07/08/2017 SIDRA STOLL MD, Ot Z98.51 TUBAL LIGATION STATUS 07/09/2017 VIVIAN BARRERA APRN Ot F32.9 MAJOR DEPRESSIVE DISORDER, SINGLE EPISOD 07/09/2017 VIVIAN BARRERA APRN Ot F41.9 ANXIETY DISORDER, UNSPECIFIED 07/09/2017 VIVIAN BARRERA APRN Ot I48.91 UNSPECIFIED ATRIAL FIBRILLATION 07/09/2017 VIVIAN BARRERA APRN Ot J18.9 PNEUMONIA, UNSPECIFIED ORGANISM 07/09/2017 VIVIAN BARRERA APRN Ot J44.1 CHRONIC OBSTRUCTIVE PULMONARY DISEASE W 07/09/2017 VIVIAN BARRERA APRN Ot M19.90 UNSPECIFIED OSTEOARTHRITIS, UNSPECIFIED 07/09/2017 VIVIAN BARRERA APRN Ot R06.02 SHORTNESS OF BREATH 07/09/2017 VIVIAN BARRERA APRN Ot Z77.22 CNTCT W AND EXPSR TO ENVIRON TOBACCO SMO 07/09/2017 VIVIAN BARRERA APRN Ot 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 07/09/2017 VIVIAN BARRERA APRN Ot Z85.118 PERSONAL HISTORY OF MALIGNANT NEOPLASM O 07/09/2017 VIVIAN BARRERA APRN Ot Z87.19 PERSONAL HISTORY OF OTHER DISEASES OF 07/09/2017 VIVIAN BARRERA APRN Ot 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] 07/09/2017 VIVIAN BARRERA APRN Ot Z98.51 TUBAL LIGATION STATUS 07/12/2017 SIDRA STOLL MD Ot F17.210 NICOTINE DEPENDENCE, CIGARETTES, UNCOMPL 07/12/2017 SIDRA STOLL MD Ot F32.9 MAJOR DEPRESSIVE DISORDER, SINGLE EPISOD 07/12/2017 SIDRA STOLL MD, Ot F41.9 ANXIETY DISORDER, UNSPECIFIED 07/12/2017 SIDRA STOLL MD, Ot J40 BRONCHITIS, NOT SPECIFIED ACUTE OR CH 07/12/2017 SIDRA STOLL MD, Ot J44.9 CHRONIC OBSTRUCTIVE PULMONARY DISEASE, U 07/12/2017 SIDRA STOLL MD, Ot K58.9 IRRITABLE BOWEL SYNDROME WITHOUT DIARRHE 07/12/2017 SIDRA STOLL MD Ot R06.02 SHORTNESS OF BREATH 07/12/2017 SIDRA STOLL MD Ot Z85.118 PERSONAL HISTORY OF MALIGNANT NEOPLASM O 07/12/2017 SIDRA STOLL MD Ot 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] 07/12/2017 SIDRA STOLL MD Ot Z98.51 TUBAL LIGATION STATUS 07/15/2017 VIVIAN BARRERA APRN Ot F32.9 MAJOR DEPRESSIVE DISORDER, SINGLE EPISOD 07/15/2017 VIVIAN BARRERA APRN Ot F41.9 ANXIETY DISORDER, UNSPECIFIED 07/15/2017 VIVIAN BARRERA APRN Ot I48.91 UNSPECIFIED ATRIAL FIBRILLATION 07/15/2017 VIVIAN BARRERA APRN Ot J18.9 PNEUMONIA, UNSPECIFIED ORGANISM 07/15/2017 VIVIAN BARRERA APRN Ot J44.1 CHRONIC OBSTRUCTIVE PULMONARY DISEASE W 07/15/2017 VIVIAN BARRERA APRN Ot M19.90 UNSPECIFIED OSTEOARTHRITIS, UNSPECIFIED 07/15/2017 VIVIAN BARRERA APRN Ot R06.02 SHORTNESS OF BREATH 07/15/2017 VIVIAN BARRERA APRN Ot Z77.22 CNTCT W AND EXPSR TO ENVIRON TOBACCO SMO 07/15/2017 VIVIAN BARRERA APRN Ot 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 07/15/2017 VIVIAN BARRERA PRODUCT EXAMINER Ot Z85.118 PERSONAL HISTORY OF MALIGNANT NEOPLASM O 07/15/2017 VIVIAN BARRERA PRODUCT EXAMINER Ot Z87.19 PERSONAL HISTORY OF OTHER DISEASES OF TH 07/15/2017 VIVIAN BARRERA PRODUCT EXAMINER Ot 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] 07/15/2017 VIVIAN BARRERA PRODUCT EXAMINER Ot Z98.51 TUBAL LIGATION STATUS 07/17/2017 WILBERTO SUMMERS FACC, ALI FACP CCDS Ot I48.0 PAROXYSMAL ATRIAL FIBRILLATION 07/17/2017 WILBERTO SUMMERS FACC, ALI FACP CCDS Ot J43.8 OTHER EMPHYSEMA 07/17/2017 WILBERTO SUMMERS FACC, ALI FACP CCDS Ot R00.2 PALPITATIONS 07/17/2017 WILBERTO SUMMERS FACC, ALI FACP CCDS Ot R06.09 OTHER FORMS OF DYSPNEA 07/17/2017 WILBERTO SUMMERS FACC, ALI FACP CCDS Ot Z72.0 TOBACCO USE 07/17/2017 WILBERTO KELLEYC, ALI FACP CCDS Ot Z85.118 PERSONAL HISTORY OF MALIGNANT NEOPLASM O 07/26/2017 JOSE DANIEL BARCENAS DO Ot A41.9 SEPSIS, UNSPECIFIED ORGANISM 07/26/2017 JOSE DANIEL BARCENAS DO Ot B96.3 HEMOPHILUS INFLUENZAE THE CAUSE OF DI 07/26/2017 JOSE DANIEL BARCENAS DO Ot E78.5 HYPERLIPIDEMIA, UNSPECIFIED 07/26/2017 SKYE BARCENAS DOI Ot F17.210 NICOTINE DEPENDENCE, CIGARETTES, UNCOMPL 07/26/2017 JOSE DANIEL BARCENAS DO Ot F32.9 MAJOR DEPRESSIVE DISORDER, SINGLE EPISOD 07/26/2017 JOSE DANIEL BARCENAS DO Ot F41.9 ANXIETY DISORDER, UNSPECIFIED 07/26/2017 JOSE DANIEL BARCENAS DO Ot I48.91 UNSPECIFIED ATRIAL FIBRILLATION 07/26/2017 JOSE DANIEL BARCENAS DO Ot J18.9 PNEUMONIA, UNSPECIFIED ORGANISM 07/26/2017 JOSE DANIEL BARCENAS DO Ot J44.0 CHRONIC OBSTRUCTIVE PULMON DISEASE W ACU 07/26/2017 JOSE DANIEL BARCENAS DO Ot J45.909 UNSPECIFIED ASTHMA, UNCOMPLICATED 07/26/2017 JOSE DANIEL BARCENAS DO Ot K21.9 GASTRO-ESOPHAGEAL REFLUX DISEASE WITHOUT 07/26/2017 JOSE DANIEL BARCENAS DO Ot K58.9 IRRITABLE BOWEL SYNDROME WITHOUT DIARRHE 07/26/2017 JOSE DANIEL BARCENAS DO Ot M19.91 PRIMARY OSTEOARTHRITIS, UNSPECIFIED SITE 07/26/2017 SKYE BARCENAS DOI Ot N95.0 POSTMENOPAUSAL BLEEDING 07/26/2017 JOSE DANIEL BARCENAS DO Ot 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 07/26/2017 SKYE BARCENAS DOI Ot Z85.118 PERSONAL HISTORY OF MALIGNANT NEOPLASM O 07/26/2017 JOSE DANIEL BARCENAS DO Ot 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] 07/26/2017 JOSE DANIEL BARCENAS DO Ot A41.9 SEPSIS, UNSPECIFIED ORGANISM 07/26/2017 SKYE BARCENAS DOI Ot B96.3 HEMOPHILUS INFLUENZAE THE CAUSE OF DI 07/26/2017 JOSE DANIEL BARCENAS DO Ot E78.5 HYPERLIPIDEMIA, UNSPECIFIED 07/26/2017 SKYE BARCENAS DOI Ot F17.210 NICOTINE DEPENDENCE, CIGARETTES, UNCOMPL 07/26/2017 JOSE DANIEL BARCENAS DO Ot F32.9 MAJOR DEPRESSIVE DISORDER, SINGLE EPISOD 07/26/2017 JOSE DANIEL BARCENAS DO Ot F41.9 ANXIETY DISORDER, UNSPECIFIED 07/26/2017 JOSE DANIEL BARCENAS DO Ot I48.2 CHRONIC ATRIAL FIBRILLATION 07/26/2017 SKYE BARCENAS DOI Ot J14 PNEUMONIA DUE TO HEMOPHILUS INFLUENZAE 07/26/2017 SKYE BARCENAS DOI Ot J44.0 CHRONIC OBSTRUCTIVE PULMON DISEASE W ACU 07/26/2017 SKYE BARCENAS DOI Ot J45.909 UNSPECIFIED ASTHMA, UNCOMPLICATED 07/26/2017 JOSE DANIEL BARCENAS DO Ot J70.1 CHRONIC AND OTHER PULMONARY MANIFESTATIO 07/26/2017 JOSE DANIEL BARCENAS DO Ot K21.9 GASTRO-ESOPHAGEAL REFLUX DISEASE WITHOUT 07/26/2017 SKYE BARCENAS DOI Ot K58.9 IRRITABLE BOWEL SYNDROME WITHOUT DIARRHE 07/26/2017 JOSE DANIEL BARCENAS DO Ot M19.91 PRIMARY OSTEOARTHRITIS, UNSPECIFIED SITE 07/26/2017 JOSE DANIEL BARCENAS DO Ot N95.0 POSTMENOPAUSAL BLEEDING 07/26/2017 JOSE DANIEL BARCENAS DO Ot 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 07/26/2017 JOSE DANIEL BARCENAS DO Ot Z85.118 PERSONAL HISTORY OF MALIGNANT NEOPLASM O 07/26/2017 JOSE DANIEL BARCENAS DO Ot 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] 2017 WILBERTO SUMMERS FACC, ALI FACP CCDS Ot I48.0 PAROXYSMAL ATRIAL FIBRILLATION 2017 WILBERTO SUMMERS FACC, ALI FACP CCDS Ot J43.8 OTHER EMPHYSEMA 2017 WILBERTO SUMMERS FACC, ALI FACP CCDS Ot R00.2 PALPITATIONS 2017 WILBERTO SUMMERS FACC, ALI FACP CCDS Ot R06.09 OTHER FORMS OF DYSPNEA 2017 WILBERTO USMMERS FACC, ALI FACP CCDS Ot Z72.0 TOBACCO USE 2017 WILBERTO SUMMERS FACC, ALI FACP CCDS Ot Z85.118 PERSONAL HISTORY OF MALIGNANT NEOPLASM O 08/14/2017 WILBERTO SUMMERS FACC, ALI FACP CCDS Ot I48.0 PAROXYSMAL ATRIAL FIBRILLATION 08/14/2017 WILBERTO SUMMERS FACC, ALI FACP CCDS Ot J43.8 OTHER EMPHYSEMA 08/14/2017 WILBERTO SUMMERS FACC, ALI FACP CCDS Ot R00.2 PALPITATIONS 08/14/2017 WILBERTO SUMMERS FAC, ALI FACP CCDS Ot R06.09 OTHER FORMS OF DYSPNEA 08/14/2017 WILBERTO SUMMERS FACC, ALI FACP CCDS Ot Z72.0 TOBACCO USE 08/14/2017 WILBERTO SUMMERS FAC, ALI FACP CCDS Ot Z85.118 PERSONAL HISTORY OF MALIGNANT NEOPLASM O 08/15/2017 JOSEPHINE KRAMER MD S Ot C34.2 MALIGNANT NEOPLASM OF MIDDLE LOBE, BRONC 08/15/2017 JOSEPHINE KRAMER MD S Ot 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, UNSPECIFIED ORGANISM 08/15/2017 JOSEPHINE KRAMER MD S Ot J30.9 ALLERGIC RHINITIS, UNSPECIFIED 08/15/2017 JOSEPHINE KRAMER MD S Ot J44.1 CHRONIC OBSTRUCTIVE PULMONARY DISEASE W 08/15/2017 ANGELO KRAMER MDID S Ot 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] 08/23/2017 JOSEPHINE KRAMER MD S Ot C34.2 MALIGNANT NEOPLASM OF MIDDLE LOBE, BRONC 08/23/2017 JOSEPHINE KRAMER MD S Ot 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, UNSPECIFIED ORGANISM 08/23/2017 JOSEPHINE KRAMER MD S Ot J30.9 ALLERGIC RHINITIS, UNSPECIFIED 08/23/2017 JOSEPHINE KRAMER MD S Ot J44.1 CHRONIC OBSTRUCTIVE PULMONARY DISEASE W 08/23/2017 JOSEPHINE KRAMER MD S Ot 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] 09/06/2017 KHALIDA ARRIETA MD U Ot 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 09/06/2017 KHALIDA ARRIETA MD U Ot R91.1 SOLITARY PULMONARY NODULE 09/06/2017 KHALIDA ARRIETA MD U Ot 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] 09/09/2017 KHALIDA ARRIETA MD U Ot 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, LEFT B 09/11/2017 JOSEPHINE KRAMER MD S Ot C34.2 MALIGNANT NEOPLASM OF MIDDLE LOBE, BRONC 09/11/2017 JOSEPHINE KRAMER MD S Ot 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, UNSPECIFIED ORGANISM 09/11/2017 JOSEPHINE KRAMER MD S Ot J30.9 ALLERGIC RHINITIS, UNSPECIFIED 09/11/2017 JOSEPHINE KRAMER MD S Ot J44.1 CHRONIC OBSTRUCTIVE PULMONARY DISEASE W 09/11/2017 JOSEPHINE KRAMER MD S Ot 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87 10*6/uL 4.35-5.85 Venous blood hemoglobin measurement (mass/volume) 12.6 g/dL 11.5-16.0 Blood hematocrit (volume fraction) 37 % 35-52 Automated erythrocyte mean corpuscular volume 95 [foz_us] 80-99 Automated erythrocyte mean corpuscular hemoglobin (mass per erythrocyte) 33 pg 25-34 Automated erythrocyte mean corpuscular hemoglobin concentration measurement ( mass/volume) 34 g/dL 32-36 Automated erythrocyte distribution width ratio 14.6 % 10.0-14.5 Automated blood platelet count (count/volume) 248 10*3/uL 130-400 Automated blood platelet mean volume measurement 9.6 [foz_us] 7.4-10.4 Automated blood neutrophils/100 leukocytes 69 % 42-75 Automated blood lymphocytes/100 leukocytes 21 % 12-44 Blood monocytes/100 leukocytes 7 % 0-12 Automated blood eosinophils/100 leukocytes 2 % 0-10 Automated blood basophils/100 leukocytes 1 % 0-10 Blood neutrophils automated count (number/volume) 4.4 10*3 1.8-7.8 Blood lymphocytes automated count (number/volume) 1.3 10*3 1.0-4.0 Blood monocytes automated count (number/volume) 0.4 10*3 0.0-1.0 Automated eosinophil count 0.2 10*3/uL 0.0-0.3 Automated blood basophil count (count/volume) 0.0 10*3/uL 0.0-0.1 Whole blood basic metabolic panel - 03/28/16 15:58 Serum or plasma sodium measurement (moles/volume) 141 mmol/L 135-145 Serum or plasma potassium measurement (moles/volume) 3.5 mmol/L 3.6-5.0 Serum or plasma chloride measurement (moles/volume) 109 mmol/L 98-107 Carbon dioxide 25 mmol/L 21-32 Serum or plasma anion gap determination (moles/volume) 7 mmol/L 5-14 Serum or plasma urea nitrogen measurement (mass/volume) 12 mg/dL 7-18 Serum or plasma creatinine measurement (mass/volume) 0.75 mg/dL 0.60-1.30 Serum or plasma urea nitrogen/creatinine mass ratio 16 NRG Serum or plasma creatinine measurement with calculation of estimated glomerular filtration rate > NRG Serum or plasma glucose measurement (mass/volume) 110 mg/dL 70-105 Serum or plasma calcium measurement (mass/volume) 9.3 mg/dL 8.5-10.1 Serum or plasma troponin i.cardiac measurement (mass/volume) - 03/28/16 15:58 Serum or plasma troponin i.cardiac measurement (mass/volume) < ng/ mL <0.30 Complete urinalysis with reflex to culture - 03/28/16 16:52 Urine color determination YELLOW NRG Urine clarity determination CLEAR NRG Urine pH measurement by test strip 6 5-9 Specific gravity of urine by test strip 1.020 1.016- 1.022 Urine protein assay by test strip, semi-quantitative NEGATIVE NEGATIVE Urine glucose detection by automated test strip NEGATIVE NEGATIVE Erythrocytes detection in urine sediment by light microscopy 3+ NEGATIVE Urine ketones detection by automated test strip NEGATIVE NEGATIVE Urine nitrite detection by test strip NEGATIVE NEGATIVE Urine total bilirubin detection by test strip NEGATIVE NEGATIVE Urine urobilinogen measurement by automated test strip (mass/volume) NORMAL NORMAL Urine leukocyte esterase detection by dipstick NEGATIVE NEGATIVE Automated urine sediment erythrocyte count by microscopy (number/high power field) NONE NRG Automated urine sediment leukocyte count by microscopy (number/high power field ) RARE NRG Bacteria detection in urine sediment by light microscopy NEGATIVE NRG Squamous epithelial cells detection in urine sediment by light microscopy 5-10 NRG Crystals detection in urine sediment by light microscopy NONE NRG Casts detection in urine sediment by light microscopy NONE NRG Mucus detection in urine sediment by light microscopy SMALL NRG Complete urinalysis with reflex to culture NO NRG Complete blood count (CBC) with automated white blood cell (WBC) differential - 06/04/16 11:48 Blood leukocytes automated count (number/volume) 6.0 10*3/uL 4.3-11.0 Blood erythrocytes automated count (number/volume) 4.07 10*6/uL 4.35-5.85 Venous blood hemoglobin measurement (mass/volume) 13.3 g/dL 11.5-16.0 Blood hematocrit (volume fraction) 40 % 35-52 Automated erythrocyte mean corpuscular volume 98 [foz_us] 80-99 Automated erythrocyte mean corpuscular hemoglobin (mass per erythrocyte) 33 pg 25-34 Automated erythrocyte mean corpuscular hemoglobin concentration measurement ( mass/volume) 34 g/dL 32-36 Automated erythrocyte distribution width ratio 13.3 % 10.0-14.5 Automated blood platelet count (count/volume) 264 10*3/uL 130-400 Automated blood platelet mean volume measurement 10.0 [foz_us] 7.4-10.4 Automated blood neutrophils/100 leukocytes 64 % 42-75 Automated blood lymphocytes/100 leukocytes 24 % 12-44 Blood monocytes/100 leukocytes 8 % 0-12 Automated blood eosinophils/100 leukocytes 3 % 0-10 Automated blood basophils/100 leukocytes 1 % 0-10 Blood neutrophils automated count (number/volume) 3.9 10*3 1.8-7.8 Blood lymphocytes automated count (number/volume) 1.5 10*3 1.0-4.0 Blood monocytes automated count (number/volume) 0.5 10*3 0.0-1.0 Automated eosinophil count 0.2 10*3/uL 0.0-0.3 Automated blood basophil count (count/volume) 0.0 10*3/uL 0.0-0.1 Comprehensive metabolic panel - 06/04/16 11:48 Serum or plasma sodium measurement (moles/volume) 138 mmol/L 135-145 Serum or plasma potassium measurement (moles/volume) 3.8 mmol/L 3.6-5.0 Serum or plasma chloride measurement (moles/volume) 107 mmol/L 98-107 Carbon dioxide 22 mmol/L 21-32 Serum or plasma anion gap determination (moles/volume) 9 mmol/L 5-14 Serum or plasma urea nitrogen measurement (mass/volume) 14 mg/dL 7-18 Serum or plasma creatinine measurement (mass/volume) 0.69 mg/dL 0.60-1.30 Serum or plasma urea nitrogen/creatinine mass ratio 20 NRG Serum or plasma creatinine measurement with calculation of estimated glomerular filtration rate > NRG Serum or plasma glucose measurement (mass/volume) 105 mg/dL 70-105 Serum or plasma calcium measurement (mass/volume) 9.4 mg/dL 8.5-10.1 Serum or plasma total bilirubin measurement (mass/volume) 0.4 mg/dL 0.1-1.0 Serum or plasma alkaline phosphatase measurement (enzymatic activity/volume) 88 U/L 40-136 Serum or plasma aspartate aminotransferase measurement (enzymatic activity/ volume) 14 U/L 5-34 Serum or plasma alanine aminotransferase measurement (enzymatic activity/volume ) 18 U/L 0-55 Serum or plasma protein measurement (mass/volume) 7.2 g/dL 6.4-8.2 Serum or plasma albumin measurement (mass/volume) 4.3 g/dL 3.2-4.5 Lipid 1996 panel - 06/04/16 11:48 Serum or plasma triglyceride measurement (mass/volume) 105 mg/dL <150 Serum or plasma cholesterol measurement (mass/volume) 242 mg/dL < 200 Serum or plasma cholesterol in HDL measurement (mass/volume) 48 mg/ dL 40-60 Cholesterol in LDL [mass/volume] in serum or plasma by direct assay 181 mg/dL 1-129 Serum or plasma cholesterol in VLDL measurement (mass/volume) 21 mg/ dL 5-40 Hemoglobin A1c - 06/04/16 11:48 Hemoglobin A1c 5.4 % 4.5-6.2 Influenza virus A and B antigen detection - 08/14/16 14:25 FLU RESULT NEGATIVE FOR INFLUENZA A AND B ANTIGENS BY IA NRG Methicillin resistant Staphylococcus aureus (MRSA) screening culture - 14:52 Methicillin resistant Staphylococcus aureus (MRSA) screening culture NEG NRG Complete urinalysis with reflex to culture - 12/03/16 06:35 Urine color determination YELLOW NRG Urine clarity determination CLEAR NRG Urine pH measurement by test strip 7 5-9 Specific gravity of urine by test strip 1.015 1.016- 1.022 Urine protein assay by test strip, semi-quantitative 1+ NEGATIVE Urine glucose detection by automated test strip NEGATIVE NEGATIVE Erythrocytes detection in urine sediment by light microscopy 5+ NEGATIVE Urine ketones detection by automated test strip NEGATIVE NEGATIVE Urine nitrite detection by test strip NEGATIVE NEGATIVE Urine total bilirubin detection by test strip NEGATIVE NEGATIVE Urine urobilinogen measurement by automated test strip (mass/volume) 4 mg/dL NORMAL Urine leukocyte esterase detection by dipstick 1+ NEGATIVE Automated urine sediment erythrocyte count by microscopy (number/high power field) [HPF] NRG Automated urine sediment leukocyte count by microscopy (number/high power field ) RARE NRG Bacteria detection in urine sediment by light microscopy TRACE NRG Squamous epithelial cells detection in urine sediment by light microscopy 10-25 NRG Crystals detection in urine sediment by light microscopy NONE NRG Casts detection in urine sediment by light microscopy NONE NRG Mucus detection in urine sediment by light microscopy NEGATIVE NRG Complete urinalysis with reflex to culture NO NRG Complete blood count (CBC) with automated white blood cell (WBC) differential - 12/21/16 11:13 Blood leukocytes automated count (number/volume) 9.7 10*3/uL 4.3-11.0 Blood erythrocytes automated count (number/volume) 4.32 10*6/uL 4.35-5.85 Venous blood hemoglobin measurement (mass/volume) 14.7 g/dL 11.5-16.0 Blood hematocrit (volume fraction) 42 % 35-52 Automated erythrocyte mean corpuscular volume 98 [foz_us] 80-99 Automated erythrocyte mean corpuscular hemoglobin (mass per erythrocyte) 34 pg 25-34 Automated erythrocyte mean corpuscular hemoglobin concentration measurement ( mass/volume) 35 g/dL 32-36 Automated erythrocyte distribution width ratio 15.4 % 10.0-14.5 Automated blood platelet count (count/volume) 194 10*3/uL 130-400 Automated blood platelet mean volume measurement 10.1 [foz_us] 7.4-10.4 Automated blood neutrophils/100 leukocytes 88 % 42-75 Automated blood lymphocytes/100 leukocytes 7 % 12-44 Blood monocytes/100 leukocytes 4 % 0-12 Automated blood eosinophils/100 leukocytes 0 % 0-10 Automated blood basophils/100 leukocytes 0 % 0-10 Blood neutrophils automated count (number/volume) 8.6 10*3 1.8-7.8 Blood lymphocytes automated count (number/volume) 0.7 10*3 1.0-4.0 Blood monocytes automated count (number/volume) 0.4 10*3 0.0-1.0 Automated eosinophil count 0.0 10*3/uL 0.0-0.3 Automated blood basophil count (count/volume) 0.0 10*3/uL 0.0-0.1 Comprehensive metabolic panel - 12/21/16 11:13 Serum or plasma sodium measurement (moles/volume) 137 mmol/L 135-145 Serum or plasma potassium measurement (moles/volume) 3.7 mmol/L 3.6-5.0 Serum or plasma chloride measurement (moles/volume) 102 mmol/L 98-107 Carbon dioxide 23 mmol/L 21-32 Serum or plasma anion gap determination (moles/volume) 12 mmol/L 5-14 Serum or plasma urea nitrogen measurement (mass/volume) 17 mg/dL 7-18 Serum or plasma creatinine measurement (mass/volume) 0.80 mg/dL 0.60-1.30 Serum or plasma urea nitrogen/creatinine mass ratio 21 NRG Serum or plasma creatinine measurement with calculation of estimated glomerular filtration rate > NRG Serum or plasma glucose measurement (mass/volume) 119 mg/dL 70-105 Serum or plasma calcium measurement (mass/volume) 8.7 mg/dL 8.5-10.1 Serum or plasma total bilirubin measurement (mass/volume) 0.7 mg/dL 0.1-1.0 Serum or plasma alkaline phosphatase measurement (enzymatic activity/volume) 55 U/L 40-136 Serum or plasma aspartate aminotransferase measurement (enzymatic activity/ volume) 13 U/L 5-34 Serum or plasma alanine aminotransferase measurement (enzymatic activity/volume ) 22 U/L 0-55 Serum or plasma protein measurement (mass/volume) 7.1 g/dL 6.4-8.2 Serum or plasma albumin measurement (mass/volume) 4.3 g/dL 3.2-4.5 Serum or plasma troponin i.cardiac measurement (mass/volume) - 12/21/16 11:13 Serum or plasma troponin i.cardiac measurement (mass/volume) < ng/ mL <0.30 Blood manual differential performed detection - 12/21/16 11:13 Blood monocytes/100 leukocytes 1 % NRG Manual blood segmented neutrophils/100 leukocytes 90 % NRG Blood band neutrophils/100 leukocytes 2 % NRG Manual blood lymphocytes/100 leukocytes 7 % NRG Manual eosinophils/100 leukocytes in nose 0 % NRG Manual blood basophils/100 leukocytes 0 % NRG Blood anisocytosis detection by light microscopy SLIGHT NRG Lipase - 12/21/16 11:13 Lipase 9 U/L 8-78 Complete urinalysis with reflex to culture - 12/21/16 12:31 Urine color determination YELLOW NRG Urine clarity determination CLEAR NRG Urine pH measurement by test strip 5 5-9 Specific gravity of urine by test strip 1.020 1.016- 1.022 Urine protein assay by test strip, semi-quantitative 2+ NEGATIVE Urine glucose detection by automated test strip NEGATIVE NEGATIVE Erythrocytes detection in urine sediment by light microscopy 5+ NEGATIVE Urine ketones detection by automated test strip NEGATIVE NEGATIVE Urine nitrite detection by test strip NEGATIVE NEGATIVE Urine total bilirubin detection by test strip NEGATIVE NEGATIVE Urine urobilinogen measurement by automated test strip (mass/volume) NORMAL NORMAL Urine leukocyte esterase detection by dipstick 1+ NEGATIVE Automated urine sediment erythrocyte count by microscopy (number/high power field) [HPF] NRG Automated urine sediment leukocyte count by microscopy (number/high power field ) [HPF] NRG Bacteria detection in urine sediment by light microscopy TRACE NRG Squamous epithelial cells detection in urine sediment by light microscopy 2-5 NRG Crystals detection in urine sediment by light microscopy NONE NRG Casts detection in urine sediment by light microscopy NONE NRG Mucus detection in urine sediment by light microscopy SMALL NRG Complete urinalysis with reflex to culture NO NRG THYROID STIMULATING HORMONE - 01/17/17 11:24 THYROID STIMULATING HORMONE 0.85 u[iU]/mL 0.35-4.94 Serum or plasma thyroxine (T4) free measurement (mass/volume) - 01/17/17 11:24 Serum or plasma thyroxine (T4) free measurement (mass/volume) 1.10 ng/dL 0.70-1.48 [id number] - 01/17/17 11:24 Screening antinuclear antibody (CHRISTOPHER) assay by enzyme immunoassay Positive <1:80 Anaplasma phagocytophilum IgG ab [titer] in serum <1: 80 Serum nuclear antibody pattern interpretation Homogeneous [facility] Acute hepatitis panel - 01/17/17 11:24 Confirmatory quantitative serum or plasma hepatitis B virus surface antigen measurement Non-Reactive Non-Reactive Hepatitis A virus IgM antibody assay Non-Reactive Non- Reactive Hepatitis B virus core IgM antibody assay Non-Reactive Non-Reactive Serum hepatitis C virus antibody detection Non-Reactive Non-Reactive Cyanocobalamin measurement - 01/17/17 11:24 Vitamin B12 569 pg/mL 200-1000 Complete blood count (CBC) with automated white blood cell (WBC) differential - 05/15/17 09:45 Blood leukocytes automated count (number/volume) 7.9 10*3/uL 4.3-11.0 Blood erythrocytes automated count (number/volume) 3.84 10*6/uL 4.35-5.85 Venous blood hemoglobin measurement (mass/volume) 12.8 g/dL 11.5-16.0 Blood hematocrit (volume fraction) 39 % 35-52 Automated erythrocyte mean corpuscular volume 101 [foz_us] 80-99 Automated erythrocyte mean corpuscular hemoglobin (mass per erythrocyte) 33 pg 25-34 Automated erythrocyte mean corpuscular hemoglobin concentration measurement ( mass/volume) 33 g/dL 32-36 Automated erythrocyte distribution width ratio 14.8 % 10.0-14.5 Automated blood platelet count (count/volume) 243 10*3/uL 130-400 Automated blood platelet mean volume measurement 10.2 [foz_us] 7.4-10.4 Automated blood neutrophils/100 leukocytes 74 % 42-75 Automated blood lymphocytes/100 leukocytes 20 % 12-44 Blood monocytes/100 leukocytes 6 % 0-12 Automated blood eosinophils/100 leukocytes 0 % 0-10 Automated blood basophils/100 leukocytes 0 % 0-10 Blood neutrophils automated count (number/volume) 5.9 10*3 1.8-7.8 Blood lymphocytes automated count (number/volume) 1.6 10*3 1.0-4.0 Blood monocytes automated count (number/volume) 0.5 10*3 0.0-1.0 Automated eosinophil count 0.0 10*3/uL 0.0-0.3 Automated blood basophil count (count/volume) 0.0 10*3/uL 0.0-0.1 Comprehensive metabolic panel - 05/15/17 09:45 Serum or plasma sodium measurement (moles/volume) 139 mmol/L 135-145 Serum or plasma potassium measurement (moles/volume) 3.7 mmol/L 3.6-5.0 Serum or plasma chloride measurement (moles/volume) 110 mmol/L 98-107 Carbon dioxide 22 mmol/L 21-32 Serum or plasma anion gap determination (moles/volume) 7 mmol/L 5-14 Serum or plasma urea nitrogen measurement (mass/volume) 12 mg/dL 7-18 Serum or plasma creatinine measurement (mass/volume) 0.70 mg/dL 0.60-1.30 Serum or plasma urea nitrogen/creatinine mass ratio 17 NRG Serum or plasma creatinine measurement with calculation of estimated glomerular filtration rate > NRG Serum or plasma glucose measurement (mass/volume) 134 mg/dL 70-105 Serum or plasma calcium measurement (mass/volume) 9.2 mg/dL 8.5-10.1 Serum or plasma total bilirubin measurement (mass/volume) 0.4 mg/dL 0.1-1.0 Serum or plasma alkaline phosphatase measurement (enzymatic activity/volume) 65 U/L 40-136 Serum or plasma aspartate aminotransferase measurement (enzymatic activity/ volume) 10 U/L 5-34 Serum or plasma alanine aminotransferase measurement (enzymatic activity/volume ) 16 U/L 0-55 Serum or plasma protein measurement (mass/volume) 7.2 g/dL 6.4-8.2 Serum or plasma albumin measurement (mass/volume) 4.1 g/dL 3.2-4.5 Sputum Gram stain - 06/13/17 11:17 GRAM STAIN SPUTUM NEGATIVE COCCOBACILLI [facility] Bacterial sputum culture - 06/13/17 11:17 FREE TEXT EXTERNAL PLUS ABUNDANT NORMAL CONRAD NRG QUANTITY OF GROWTH Scant Growth [facility] Bacterial sputum culture [id number] [facility] Bacterial susceptibility panel - 06/13/17 11:17 Gentamicin susceptibility test by minimum inhibitory concentration < = NRG Tobramycin susceptibility test by minimum inhibitory concentration < = NRG Piperacillin/tazobactam susceptibility test by minimum inhibitory concentration 8 NRG Ciprofloxacin susceptibility test by minimum inhibitory concentration <= NRG Meropenem susceptibility test by minimum inhibitory concentration 0.5 NRG Cefepime susceptibility test by minimum inhibitory concentration 2 NRG Complete blood count (CBC) with automated white blood cell (WBC) differential - 07/05/17 12:25 Blood leukocytes automated count (number/volume) 18.2 10*3/uL 4.3-11.0 Blood erythrocytes automated count (number/volume) 4.13 10*6/uL 4.35-5.85 Venous blood hemoglobin measurement (mass/volume) 14.1 g/dL 11.5-16.0 Blood hematocrit (volume fraction) 42 % 35-52 Automated erythrocyte mean corpuscular volume 102 [foz_us] 80-99 Automated erythrocyte mean corpuscular hemoglobin (mass per erythrocyte) 34 pg 25-34 Automated erythrocyte mean corpuscular hemoglobin concentration measurement ( mass/volume) 33 g/dL 32-36 Automated erythrocyte distribution width ratio 15.0 % 10.0-14.5 Automated blood platelet count (count/volume) 247 10*3/uL 130-400 Automated blood platelet mean volume measurement 10.5 [foz_us] 7.4-10.4 Automated blood neutrophils/100 leukocytes 91 % 42-75 Automated blood lymphocytes/100 leukocytes 6 % 12-44 Blood monocytes/100 leukocytes 3 % 0-12 Automated blood eosinophils/100 leukocytes 0 % 0-10 Automated blood basophils/100 leukocytes 0 % 0-10 Blood neutrophils automated count (number/volume) 16.5 10*3 1.8-7.8 Blood lymphocytes automated count (number/volume) 1.1 10*3 1.0-4.0 Blood monocytes automated count (number/volume) 0.5 10*3 0.0-1.0 Automated eosinophil count 0.1 10*3/uL 0.0-0.3 Automated blood basophil count (count/volume) 0.0 10*3/uL 0.0-0.1 Blood manual differential performed detection - 07/05/17 12:25 Blood monocytes/100 leukocytes 2 % NRG Manual blood segmented neutrophils/100 leukocytes 94 % NRG Blood band neutrophils/100 leukocytes 0 % NRG Manual blood lymphocytes/100 leukocytes 4 % NRG Manual eosinophils/100 leukocytes in nose 0 % NRG Manual blood basophils/100 leukocytes 0 % NRG Blood anisocytosis detection by light microscopy SLIGHT NRG Blood macrocytes detection by light microscopy SLIGHT NRG Comprehensive metabolic panel - 07/05/17 12:25 Serum or plasma sodium measurement (moles/volume) 142 mmol/L 135-145 Serum or plasma potassium measurement (moles/volume) 3.7 mmol/L 3.6-5.0 Serum or plasma chloride measurement (moles/volume) 106 mmol/L 98-107 Carbon dioxide 23 mmol/L 21-32 Serum or plasma anion gap determination (moles/volume) 13 mmol/L 5-14 Serum or plasma urea nitrogen measurement (mass/volume) 15 mg/dL 7-18 Serum or plasma creatinine measurement (mass/volume) 0.76 mg/dL 0.60-1.30 Serum or plasma urea nitrogen/creatinine mass ratio 20 NRG Serum or plasma creatinine measurement with calculation of estimated glomerular filtration rate > NRG Serum or plasma glucose measurement (mass/volume) 141 mg/dL 70-105 Serum or plasma calcium measurement (mass/volume) 9.4 mg/dL 8.5-10.1 Serum or plasma total bilirubin measurement (mass/volume) 0.8 mg/dL 0.1-1.0 Serum or plasma alkaline phosphatase measurement (enzymatic activity/volume) 66 U/L 40-136 Serum or plasma aspartate aminotransferase measurement (enzymatic activity/ volume) 16 U/L 5-34 Serum or plasma alanine aminotransferase measurement (enzymatic activity/volume ) 33 U/L 0-55 Serum or plasma protein measurement (mass/volume) 7.4 g/dL 6.4-8.2 Serum or plasma albumin measurement (mass/volume) 4.3 g/dL 3.2-4.5 Magnesium - 07/05/17 12:25 Magnesium 1.9 mg/dL 1.8-2.4 Serum or plasma troponin i.cardiac measurement (mass/volume) - 07/05/17 12:25 Serum or plasma troponin i.cardiac measurement (mass/volume) < ng/ mL <0.30 PT panel in platelet poor plasma by coagulation assay - 07/05/17 12:25 Prothrombin time (PT) in platelet poor plasma by coagulation assay 13.4 s 12.2-14.7 INR in platelet poor plasma or blood by coagulation assay 1.0 0.8-1.4 Activated partial thromboplastin time (aPTT) in platelet poor plasma bycoagulation assay - 07/05/17 12:25 Activated partial thromboplastin time (aPTT) in platelet poor plasma bycoagulation assay 31 s 24-35 Fibrin D-dimer FEU measurement in platelet poor plasma (mass/volume) - 12:25 Fibrin D-dimer FEU measurement in platelet poor plasma (mass/volume) < ug/mL 0.00-0.49 Serum or plasma lithium measurement (moles/volume) - 07/05/17 12:25 BNP level 68.3 pg/mL <100.0 Serum or plasma C reactive protein measurement (mass/volume) - 07/05/17 12:25 Serum or plasma C reactive protein measurement (mass/volume) 1.94 mg /dL 0.00-0.50 Sputum Gram stain - 07/05/17 13:45 GRAM STAIN SPUTUM GRAM NGATIVE COCCI NRG Bacterial sputum culture - 07/05/17 13:45 FREE TEXT EXTERNAL BETA LACTAMASE POSITIVE NRG QUANTITY OF GROWTH Abundant Growth NRG FREE TEXT ENTRY 2 PLUS NORMAL CONRAD NRG Bacterial sputum culture [id number] NRG Complete blood count (CBC) with automated white blood cell (WBC) differential - 07/09/17 13:12 Blood leukocytes automated count (number/volume) 12.8 10*3/uL 4.3-11.0 Blood erythrocytes automated count (number/volume) 3.53 10*6/uL 4.35-5.85 Venous blood hemoglobin measurement (mass/volume) 12.5 g/dL 11.5-16.0 Blood hematocrit (volume fraction) 36 % 35-52 Automated erythrocyte mean corpuscular volume 102 [foz_us] 80-99 Automated erythrocyte mean corpuscular hemoglobin (mass per erythrocyte) 35 pg 25-34 Automated erythrocyte mean corpuscular hemoglobin concentration measurement ( mass/volume) 35 g/dL 32-36 Automated erythrocyte distribution width ratio 14.9 % 10.0-14.5 Automated blood platelet count (count/volume) 262 10*3/uL 130-400 Automated blood platelet mean volume measurement 10.3 [foz_us] 7.4-10.4 Automated blood neutrophils/100 leukocytes 75 % 42-75 Automated blood lymphocytes/100 leukocytes 13 % 12-44 Blood monocytes/100 leukocytes 10 % 0-12 Automated blood eosinophils/100 leukocytes 2 % 0-10 Automated blood basophils/100 leukocytes 0 % 0-10 Blood neutrophils automated count (number/volume) 9.6 10*3 1.8-7.8 Blood lymphocytes automated count (number/volume) 1.7 10*3 1.0-4.0 Blood monocytes automated count (number/volume) 1.2 10*3 0.0-1.0 Automated eosinophil count 0.3 10*3/uL 0.0-0.3 Automated blood basophil count (count/volume) 0.0 10*3/uL 0.0-0.1 Complete blood count (CBC) with automated white blood cell (WBC) differential - 07/24/17 11:20 Blood leukocytes automated count (number/volume) 23.7 10*3/uL 4.3-11.0 Blood erythrocytes automated count (number/volume) 3.82 10*6/uL 4.35-5.85 Venous blood hemoglobin measurement (mass/volume) 13.4 g/dL 11.5-16.0 Blood hematocrit (volume fraction) 38 % 35-52 Automated erythrocyte mean corpuscular volume 101 [foz_us] 80-99 Automated erythrocyte mean corpuscular hemoglobin (mass per erythrocyte) 35 pg 25-34 Automated erythrocyte mean corpuscular hemoglobin concentration measurement ( mass/volume) 35 g/dL 32-36 Automated erythrocyte distribution width ratio 15.0 % 10.0-14.5 Automated blood platelet count (count/volume) 212 10*3/uL 130-400 Automated blood platelet mean volume measurement 10.2 [foz_us] 7.4-10.4 Automated blood neutrophils/100 leukocytes 90 % 42-75 Automated blood lymphocytes/100 leukocytes 6 % 12-44 Blood monocytes/100 leukocytes 4 % 0-12 Automated blood eosinophils/100 leukocytes 0 % 0-10 Automated blood basophils/100 leukocytes 0 % 0-10 Blood neutrophils automated count (number/volume) 21.2 10*3 1.8-7.8 Blood lymphocytes automated count (number/volume) 1.5 10*3 1.0-4.0 Blood monocytes automated count (number/volume) 1.0 10*3 0.0-1.0 Automated eosinophil count 0.0 10*3/uL 0.0-0.3 Automated blood basophil count (count/volume) 0.0 10*3/uL 0.0-0.1 Blood lactic acid measurement (moles/volume) - 07/24/17 11:20 Blood lactic acid measurement (moles/volume) 1.70 mmol/L 0.50-2.00 Comprehensive metabolic panel - 07/24/17 11:20 Serum or plasma sodium measurement (moles/volume) 135 mmol/L 135-145 Serum or plasma potassium measurement (moles/volume) 4.0 mmol/L 3.6-5.0 Serum or plasma chloride measurement (moles/volume) 101 mmol/L 98-107 Carbon dioxide 25 mmol/L 21-32 Serum or plasma anion gap determination (moles/volume) 9 mmol/L 5-14 Serum or plasma urea nitrogen measurement (mass/volume) 9 mg/dL 7-18 Serum or plasma creatinine measurement (mass/volume) 0.78 mg/dL 0.60-1.30 Serum or plasma urea nitrogen/creatinine mass ratio 12 NRG Serum or plasma creatinine measurement with calculation of estimated glomerular filtration rate > NRG Serum or plasma glucose measurement (mass/volume) 135 mg/dL 70-105 Serum or plasma calcium measurement (mass/volume) 9.6 mg/dL 8.5-10.1 Serum or plasma total bilirubin measurement (mass/volume) 1.0 mg/dL 0.1-1.0 Serum or plasma alkaline phosphatase measurement (enzymatic activity/volume) 63 U/L 40-136 Serum or plasma aspartate aminotransferase measurement (enzymatic activity/ volume) 16 U/L 5-34 Serum or plasma alanine aminotransferase measurement (enzymatic activity/volume ) 39 U/L 0-55 Serum or plasma protein measurement (mass/volume) 7.7 g/dL 6.4-8.2 Serum or plasma albumin measurement (mass/volume) 4.2 g/dL 3.2-4.5 Magnesium - 07/24/17 11:20 Magnesium 1.7 mg/dL 1.8-2.4 Serum or plasma troponin i.cardiac measurement (mass/volume) - 07/24/17 11:20 Serum or plasma troponin i.cardiac measurement (mass/volume) < ng/ mL <0.30 Myoglobin, serum - 07/24/17 11:20 Myoglobin, serum 23.7 ng/mL 10.0-92.0 PT panel in platelet poor plasma by coagulation assay - 07/24/17 11:20 Prothrombin time (PT) in platelet poor plasma by coagulation assay 14.8 s 12.2-14.7 INR in platelet poor plasma or blood by coagulation assay 1.2 0.8-1.4 Activated partial thromboplastin time (aPTT) in platelet poor plasma bycoagulation assay - 07/24/17 11:20 Activated partial thromboplastin time (aPTT) in platelet poor plasma bycoagulation assay 36 s 24-35 Blood manual differential performed detection - 07/24/17 11:20 Blood monocytes/100 leukocytes 3 % NRG Manual blood segmented neutrophils/100 leukocytes 90 % NRG Blood band neutrophils/100 leukocytes 2 % NRG Manual blood lymphocytes/100 leukocytes 5 % NRG Blood macrocytes detection by light microscopy SLIGHT NRG Blood stomatocytes detection by light microscopy SLIGHT NRG Bacterial blood culture - 07/24/17 11:20 Bacterial blood culture NG NRG Bacterial blood culture - 07/24/17 11:38 Bacterial blood culture NG NRG Complete urinalysis with reflex to culture - 07/24/17 12:05 Urine color determination YELLOW NRG Urine clarity determination CLEAR NRG Urine pH measurement by test strip 7 5-9 Specific gravity of urine by test strip 1.005 1.016- 1.022 Urine protein assay by test strip, semi-quantitative NEGATIVE NEGATIVE Urine glucose detection by automated test strip NEGATIVE NEGATIVE Erythrocytes detection in urine sediment by light microscopy 4+ NEGATIVE Urine ketones detection by automated test strip NEGATIVE NEGATIVE Urine nitrite detection by test strip NEGATIVE NEGATIVE Urine total bilirubin detection by test strip NEGATIVE NEGATIVE Urine urobilinogen measurement by automated test strip (mass/volume) NORMAL NORMAL Urine leukocyte esterase detection by dipstick NEGATIVE NEGATIVE Automated urine sediment erythrocyte count by microscopy (number/high power field) NONE NRG Automated urine sediment leukocyte count by microscopy (number/high power field ) NONE NRG Bacteria detection in urine sediment by light microscopy NEGATIVE NRG Squamous epithelial cells detection in urine sediment by light microscopy 0-2 NRG Crystals detection in urine sediment by light microscopy NONE NRG Casts detection in urine sediment by light microscopy NONE NRG Mucus detection in urine sediment by light microscopy NEGATIVE NRG Complete urinalysis with reflex to culture NO NRG Sputum Gram stain - 07/24/17 14:30 Sputum Gram stain of gram negative coccobacilli NRG Bacterial sputum culture - 07/24/17 14:30 FREE TEXT EXTERNAL BETA LACTAMASE NEGATIVE NRG QUANTITY OF GROWTH Abundant Growth NR FREE TEXT ENTRY 2 PLUS NORMAL CONRAD NR Bacterial sputum culture [id number] [facility] Lipid 1996 panel - 07/25/17 05:25 Serum or plasma triglyceride measurement (mass/volume) 100 mg/dL <150 Serum or plasma cholesterol measurement (mass/volume) 160 mg/dL < 200 Serum or plasma cholesterol in HDL measurement (mass/volume) 38 mg/ dL 40-60 Cholesterol in LDL [mass/volume] in serum or plasma by direct assay 103 mg/dL 1-129 Serum or plasma cholesterol in VLDL measurement (mass/volume) 20 mg/ dL 5-40 Complete blood count (CBC) with automated white blood cell (WBC) differential - 07/25/17 05:35 Blood leukocytes automated count (number/volume) 7.9 10*3/uL 4.3-11.0 Blood erythrocytes automated count (number/volume) 3.20 10*6/uL 4.35-5.85 Venous blood hemoglobin measurement (mass/volume) 11.0 g/dL 11.5-16.0 Blood hematocrit (volume fraction) 34 % 35-52 Automated erythrocyte mean corpuscular volume 105 [foz_us] 80-99 Automated erythrocyte mean corpuscular hemoglobin (mass per erythrocyte) 34 pg 25-34 Automated erythrocyte mean corpuscular hemoglobin concentration measurement ( mass/volume) 33 g/dL 32-36 Automated erythrocyte distribution width ratio 15.3 % 10.0-14.5 Automated blood platelet count (count/volume) 181 10*3/uL 130-400 Automated blood platelet mean volume measurement 11.0 [foz_us] 7.4-10.4 Automated blood neutrophils/100 leukocytes 76 % 42-75 Automated blood lymphocytes/100 leukocytes 14 % 12-44 Blood monocytes/100 leukocytes 9 % 0-12 Automated blood eosinophils/100 leukocytes 2 % 0-10 Automated blood basophils/100 leukocytes 0 % 0-10 Blood neutrophils automated count (number/volume) 5.9 10*3 1.8-7.8 Blood lymphocytes automated count (number/volume) 1.1 10*3 1.0-4.0 Blood monocytes automated count (number/volume) 0.7 10*3 0.0-1.0 Automated eosinophil count 0.1 10*3/uL 0.0-0.3 Automated blood basophil count (count/volume) 0.0 10*3/uL 0.0-0.1 Whole blood basic metabolic panel - 07/25/17 05:35 Serum or plasma sodium measurement (moles/volume) 141 mmol/L 135-145 Serum or plasma potassium measurement (moles/volume) 3.7 mmol/L 3.6-5.0 Serum or plasma chloride measurement (moles/volume) 110 mmol/L 98-107 Carbon dioxide 22 mmol/L 21-32 Serum or plasma anion gap determination (moles/volume) 9 mmol/L 5-14 Serum or plasma urea nitrogen measurement (mass/volume) 8 mg/dL 7-18 Serum or plasma creatinine measurement (mass/volume) 0.64 mg/dL 0.60-1.30 Serum or plasma urea nitrogen/creatinine mass ratio 13 NRG Serum or plasma creatinine measurement with calculation of estimated glomerular filtration rate > NRG Serum or plasma glucose measurement (mass/volume) 117 mg/dL 70-105 Serum or plasma calcium measurement (mass/volume) 8.6 mg/dL 8.5-10.1 Serum or plasma phosphate measurement (mass/volume) - 07/25/17 05:35 Serum or plasma phosphate measurement (mass/volume) 3.4 mg/dL 2.3-4.7 Magnesium - 07/25/17 05:35 Magnesium 1.8 mg/dL 1.8-2.4 Complete blood count (CBC) with automated white blood cell (WBC) differential - 07/26/17 06:22 Blood leukocytes automated count (number/volume) 5.7 10*3/uL 4.3-11.0 Blood erythrocytes automated count (number/volume) 3.24 10*6/uL 4.35-5.85 Venous blood hemoglobin measurement (mass/volume) 11.0 g/dL 11.5-16.0 Blood hematocrit (volume fraction) 34 % 35-52 Automated erythrocyte mean corpuscular volume 105 [foz_us] 80-99 Automated erythrocyte mean corpuscular hemoglobin (mass per erythrocyte) 34 pg 25-34 Automated erythrocyte mean corpuscular hemoglobin concentration measurement ( mass/volume) 32 g/dL 32-36 Automated erythrocyte distribution width ratio 14.9 % 10.0-14.5 Automated blood platelet count (count/volume) 203 10*3/uL 130-400 Automated blood platelet mean volume measurement 10.4 [foz_us] 7.4-10.4 Automated blood neutrophils/100 leukocytes 68 % 42-75 Automated blood lymphocytes/100 leukocytes 21 % 12-44 Blood monocytes/100 leukocytes 7 % 0-12 Automated blood eosinophils/100 leukocytes 3 % 0-10 Automated blood basophils/100 leukocytes 1 % 0-10 Blood neutrophils automated count (number/volume) 3.9 10*3 1.8-7.8 Blood lymphocytes automated count (number/volume) 1.2 10*3 1.0-4.0 Blood monocytes automated count (number/volume) 0.4 10*3 0.0-1.0 Automated eosinophil count 0.2 10*3/uL 0.0-0.3 Automated blood basophil count (count/volume) 0.0 10*3/uL 0.0-0.1 Whole blood basic metabolic panel - 07/26/17 06:22 Serum or plasma sodium measurement (moles/volume) 141 mmol/L 135-145 Serum or plasma potassium measurement (moles/volume) 3.9 mmol/L 3.6-5.0 Serum or plasma chloride measurement (moles/volume) 110 mmol/L 98-107 Carbon dioxide 24 mmol/L 21-32 Serum or plasma anion gap determination (moles/volume) 7 mmol/L 5-14 Serum or plasma urea nitrogen measurement (mass/volume) 11 mg/dL 7-18 Serum or plasma creatinine measurement (mass/volume) 0.69 mg/dL 0.60-1.30 Serum or plasma urea nitrogen/creatinine mass ratio 16 NRG Serum or plasma creatinine measurement with calculation of estimated glomerular filtration rate > NRG Serum or plasma glucose measurement (mass/volume) 110 mg/dL 70-105 Serum or plasma calcium measurement (mass/volume) 9.0 mg/dL 8.5-10.1 Serum or plasma phosphate measurement (mass/volume) - 07/26/17 06:22 Serum or plasma phosphate measurement (mass/volume) 3.4 mg/dL 2.3-4.7 Magnesium - 07/26/17 06:22 Magnesium 1.7 mg/dL 1.8-2.4 Encounters ACCT No. Visit Date/Time Discharge Status Pt. Type Provider Facility Loc./Unit Complaint [id number] 10/12/2013 08:56:00 10/12/2013 23:59:59 CLS Outpatient YURIY ACHARYA [facility] [id number] 06/27/2017 15:55:00 09/11/2017 00:01:00 DIS Outpatient JOSEPHINE KRAMER MD [facility] BRONCHOPNEUUMONIA [id number] 09/03/2017 13:13:00 09/03/2017 23:59:59 CLS Outpatient KHALIDA ARRIETA MD [facility] LUNG CA [id number] 08/15/2017 13:00:00 08/15/2017 23:59:59 CLS Preadmit JOSEPHINE KRAMER MD [facility] EOSINOPHILIC ASTHMA [id number] 08/09/2017 12:33:00 08/09/2017 23:59:59 CLS Outpatient KHALIDA ARRIETA MD [facility] LUNG CANCER C34.90 [id number] 07/31/2017 11:15:00 07/31/2017 23:59:59 CLS Preadmit KHALIDA ARRIETA MD [facility] LUNG CANCER [id number] 07/24/2017 14:42:00 07/26/2017 11:55:00 DIS Inpatient JOSE DANIEL BARCENAS DO [facility] 4TH PNA LLL,SEPSIS,COPD EXACERBATION [id number] 07/16/2017 10:41:00 07/16/2017 23:59:59 CLS Outpatient WILBERTO SUMMERS FACC, GIBRAN HANLEY CCDS [facility] CARD RO6.09 GUAN I48.0 PAF [id number] 07/09/2017 12:53:00 07/09/2017 14:36:00 DIS Emergency VIVIAN BARRERA APRN [facility] ER SOB,TACHYCARDIA [id number] 07/05/2017 12:19:00 07/05/2017 13:55:00 DIS Emergency SIDRA STOLL MD [facility] ER SOA [id number] 06/20/2017 08:00:00 06/20/2017 23:59:59 CLS Preadmit WILBERTO SUMMERS FACC, GIBRAN FACMaikel CCDS [facility] CARD R06.09 GUAN I48.0 PAF [id number] 05/15/2017 09:38:00 05/15/2017 23:59:59 CLS Outpatient EDU GUPTA MD [facility] RAD LUNG CA [id number] 01/30/2017 08:57:00 01/30/2017 23:59:59 CLS Outpatient JOSEPHINE KRAMER MD [facility] RAD LUNG CA C34.90 [id number] 01/17/2017 11:12:00 01/17/2017 23:59:59 CLS Outpatient SHELLEY ROSENBERG DO [facility] LAB R53.83,K59.00,Z11.59 [id number] 12/21/2016 11:07:00 12/21/2016 14:25:00 DIS Emergency VIVIAN BARRERA APRN [facility] ER CHEST PRESSURE/PAIN [id number] 12/13/2016 07:14:00 12/13/2016 23:59:59 CLS Preadmit JOSEPHINE KRAMER MD [facility] RT J44.1 [id number] 12/13/2016 07:12:00 12/13/2016 23:59:59 CLS Preadmit JOSEPHINE KRAMER MD [facility] RAD C34.90 [id number] 12/03/2016 06:29:00 12/03/2016 10:40:00 DIS Outpatient LAKESHIA ARRIAGA MD [facility] SDC POST MENOPAUSAL THICKENED ENDOMATRIUM, HX LUNG CA, [id number] 11/29/2016 14:32:00 11/29/2016 14:55:00 DIS Outpatient LAKESHIA ARRIAGA MD [facility] PREOP HYSTEROSCOPY, D C [id number] 10/23/2016 12:06:00 10/23/2016 23:59:59 CLS Outpatient JOSEPHINE KRAMER MD [facility] RAD LUNG CA, LUNG NODULE [id number] 09/12/2016 12:23:00 09/12/2016 23:59:59 CLS Outpatient KHALIDA ARRIETA MD [facility] RAD LUNG CA [id number] 08/14/2016 12:41:00 08/14/2016 15:23:00 DIS Emergency SIDRA STOLL MD [facility] ER COUGH/CHEST CONGESTION [id number] 06/04/2016 11:40:00 06/04/2016 23:59:59 CLS Outpatient CHET LEARY SHELLEY Gary [facility] LAB CHRONIC PAIN SYNDROME , CERIVCAL SPONDYLOSIS W/O MY [id number] 05/15/2016 10:31:00 05/15/2016 23:59:59 CLS Outpatient KHALIDA ARRIETA MD [facility] RAD LUNG CANCER [id number] 05/01/2016 11:27:00 05/01/2016 23:59:59 CLS Outpatient KME PITTMAN MD [facility] CARD LUNG CA,OTHER SPECIFIED DISORDERS OF BONE [id number] 04/25/2016 13:14:00 04/25/2016 23:59:59 CLS Outpatient WILBERTO SUMMERS FACC, GIBRAN HANLEY CCDS [facility] CARD PAF,LUNG CANCER,COPD,PALPITATIONS [id number] 03/28/2016 14:47:00 03/28/2016 17:32:00 DIS Emergency VIVIAN BARRERA APRN [facility] ER UPPER ABD/CHEST PAIN [id number] 03/22/2016 14:29:00 03/22/2016 23:59:59 CLS Outpatient WILBERTO SUMMERS FACC, GIBRAN HANLEY CCDS [facility] LAB PAF, CA, COPD [id number] 11/14/2015 08:34:00 11/14/2015 11:30:00 DIS Outpatient PARAM MA MD [facility] SDC DIARRHEA, UPPER GASTRIC PAIN, GERD [id number] 11/10/2015 05:42:00 11/10/2015 16:02:00 DIS Outpatient PARAM MA MD [facility] PREOP DIARRHEA, UPPER GASTRIC PAIN, GERD [id number] 10/13/2015 12:08:00 10/13/2015 15:18:00 DIS Emergency AN NASH MD [facility] ER DIARRHEA [id number] 09/29/2015 12:42:00 09/29/2015 23:59:59 CLS Outpatient NEHA ROSENBERG ROXANNE [facility] RAD COPD [id number] 09/28/2015 13:22:00 09/28/2015 23:59:59 CLS Outpatient CONNIE ÁLVAREZ [facility] LAB CHEST PAIN, COPD, PAF , GUAN [id number] 07/13/2015 18:37:00 07/13/2015 20:11:00 DIS Emergency VIVIAN BARRERA PRODUCT EXAMINER [facility] ER CHILLS,BODY ACHES, CHEST/ HEAD COLD [id number] 07/11/2015 13:55:00 07/11/2015 23:59:59 CLS Outpatient ALESSANDRO MARTINEZ DO [facility] RAD DDD, STENOSIS [id number] 06/03/2015 09:58:00 06/03/2015 23:59:59 CLS Outpatient ABE HELLER DO [facility] LAB HYPERLIPIDEMIA [id number] 05/23/2015 17:15:00 05/23/2015 23:59:59 CLS Outpatient ABE HELLER DO [facility] LAB HYPERLIPIDEMIA [id number] 04/06/2015 08:47:00 04/06/2015 23:59:59 CLS Outpatient ANDIE RICHARDS DO [facility] RT COPD CANCER OF LUNG TOBACCO USER [id number] 04/03/2015 21:14:00 04/04/2015 06:30:00 DIS Outpatient ANDIE RICHARDS DO [facility] SLEEP SNORING ARRHYTHMIAS ISCHEMIC HEART DISEASE MORNING [id number] 11/04/2014 15:36:00 11/25/2014 09:47:00 DIS Outpatient OSIRIS SUMMERS, MUKESH Novak [facility] REHAB NECK PAIN;C6-C7 FUSION;THORACIC PAIN [id number] 09/12/2017 00:35:00 PEN Preadmit NIA SUMMERS[facility] [id number] 11/01/2016 10:15:00 Document Registration [id number] 10/04/2014 13:45:00 Document Registration [id number] 10/04/2014 13:45:00 Document Registration [id number] 10/04/2014 13:45:00 Document Registration [id number] 07/13/2010 00:00:00 Document Registration [id number] 06/02/2010 12:20:00 Document Registration [id number] 05/11/2010 08:26:00 Document Registration [id number] 05/05/2010 09:05:00 Document Registration [id number] 04/13/2010 15:06:00 Document Registration [id number] 02/23/2010 14:14:00 Document Registration [id number] 02/06/2010 10:29:00 Document Registration [id number] 01/16/2010 13:11:00 Document Registration [id number] 01/10/2010 09:26:00 Document Registration [id number] 12/28/2009 11:32:00 Document Registration [id number] 12/21/2009 08:57:00 Document Registration [id number] 12/19/2009 12:54:00 Document Registration [id number] 12/15/2009 11:38:00 Document Registration [id number] 11/17/2009 12:55:00 Document Registration
[2017-09-13] MEDS ORDERED: TETRACAINE 0.5% OPHTH SOLN 4 ML BTL (SINGLE DOSE ONLY) OU ONE (12:15)
[2017-09-13] MEDS ORDERED: FLUORESCEIN (FLUOR-I-STRIPS) 1 MG STRP OU ONE (12:15)
--- NOTE | 2017-09-13 12:42 | ED EENT ---
History of Present Illness General Chief Complaint: Eye Problems Stated Complaint: RT EYE ISSUES Nursing Triage Note: ARRIVED VIA AMB TO ROOM 07. COMPLAINS OF RIGHT EYE REDNESS. STATES SHE WAS POKED IN THE EYE ON SAT BY HER GRANDSONS FINGERNAIL. Source: patient Exam Limitations: no limitations History of Present Illness Date Seen by Provider: Sep 13, 2017 Time Seen by Provider: 12:30 Initial Comments 57-year-old female patient presents to the emergency department complains of right eye redness after being poked in the eye by her grandsons fingernail yesterday. Today she has a slight foreign-body sensation. Denies changes in vision or drainage. Denies headache. Location Injury Occurred: home Timing/Duration: yesterday Location: eye (R) Prearrival Treatment: no prearrival treatment Allergies and Home Medications Allergies Coded Allergies: No Known Drug Allergies (Verified , 07/24/17) Home Medications Albuterol Sulfate 18 Gm Hfa.aer.ad, 2 PUFF INH Q4H PRN for SHORTNESS OF BREATH, (Reported) Apixaban 5 Mg Tablet, 5 MG PO BID, (Reported) Cefdinir 300 Mg Capsule, 300 MG PO BID, #12 Prescribed by: JOSE DANIEL BARCENAS on 07/26/17 1033 Diazepam 5 Mg Tablet, 5 MG PO BID PRN for ANXIETY, (Reported) Diltiazem HCl 240 Mg Cap.er.24h, 240 MG PO DAILY, (Reported) Diphenoxylate HCl/Atropine 1 Each Tablet, 1 TAB PO QID PRN for DIARRHEA, ( Reported) Estradiol 0.5 Mg Tablet, 0.5 MG PO DAILY, (Reported) Fexofenadine HCl 180 Mg Tablet, 180 MG PO DAILY, (Reported) Fluticasone Propionate 16 Gm [place].susp, 2 SPRAY NS DAILY, (Reported) Gabapentin 300 Mg Capsule, 300 MG PO TID PRN for NERVE PAIN, (Reported) Gentamicin Sulfate 5 Ml Drops, 2 DROP OP Q6H for 7 Days, #1 Ref 0 Prescribed by: BAM NEWTON on 09/13/17 1305 Guaifenesin 1,200 Mg Tab.er.12h, 1,200 MG PO BID, (Reported) Hydrocodone/Acetaminophen 1 Each Tablet, 1 TAB PO Q4H PRN for PAIN-MODERATE, ( Reported) Ipratropium/Albuterol Sulfate 3 Ml Ampul.neb, 3 ML IH Q4H PRN for SHORTNESS OF BREATH, (Reported) Medroxyprogesterone Acetate 2.5 Mg Tablet, 2.5 MG PO DAILY, (Reported) Mometasone/Formoterol 13 Gm Hfa.aer.ad, 2 PUFF INH BID, (Reported) Montelukast Sodium 10 Mg Tablet, 10 MG PO HS, (Reported) Nystatin 100,000 Unit/1 Ml Oral.susp, 10 ML PO QID PRN for THRUSH, (Reported) Ondansetron 4 Mg Tab.rapdis, 4 MG PO Q4H PRN for NAUSEA/VOMITING, (Reported) Pantoprazole Sodium 40 Mg Tablet.dr, 40 MG PO DAILY, (Reported) Pravastatin Sodium 40 Mg Tablet, 40 MG PO HS, (Reported) Sucralfate 1 Gm/10 Ml Oral.susp, 10 ML PO QID PRN for STOMACH UPSET, (Reported) Terconazole 45 Gm Cream.appl, 1 APPFUL VG HS for 7 Days, (Reported) 7 DAY THERAPY FILLED 07-23-17 (NOT PICKED UP YET) Tiotropium [place] 4 Gm Mist.inhal, 2 PUFF IH DAILY, (Reported) Varenicline Tartrate 1 Mg Tablet, 1 MG PO BID, (Reported) Review of Systems Constitutional: no symptoms reported Eyes: See HPI, Denies Blindness, Denies Blurred Vision, Denies Drainage, Denies Decreased Acuity, Foreign Body Sensation, Denies Photophobia, Denies Vision Changes Ears: No Symptoms Reported Nose: no symptoms reported Mouth: no symptoms reported Throat: no symptoms reported Skin: no symptoms reported Neurological: No Symptoms Reported All Other Systems Reviewed Negative Unless Noted: Yes (Negative excepted noted.) Past Xnldgun-Glgwyw-Lhchlu Hx Patient Social History Alcohol Beverage of Choice: Beer, [place] Type Used: Cigarettes 2nd Hand Smoke Exposure: Yes Recent Foreign Travel: No Contact w/Someone Who Travel: No Recent Infectious Disease Expo: No Recent Hopitalizations: Yes (DUANE RAGLAND) Immunizations Up To Date Tetanus Booster (TDap): Unknown Date of Pneumonia Vaccine: Oct 24, 2013 Date of Influenza Vaccine: May 26, 2017 Seasonal Allergies Seasonal Allergies: Yes Surgeries History of Surgeries: Yes (BUNIONECTOMY, NECK FUSION, BREAST IMPLANTS) Surgeries: Lobectomy, Tubal Ligation Respiratory History of Respiratory Disorde: Yes ( HX OF LUNG CA) Respiratory Disorders: Asthma, COPD Currently Using CPAP: No Currently Using BIPAP: No Cardiovascular History of Cardiac Disorders: No Cardiac Disorders: Atrial Fibrillation, High Cholesterol Neurological History of Neurological Disord: No 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 System Hx 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 Genitourinary History of Genitourinary Disor: No Gastrointestinal History of Gastrointestinal Di: No Gastrointestinal Disorders: Gastroesophageal Reflux, Irritable Bowel Musculoskeletal History of Musculoskeletal Dis: Yes Musculoskeletal Disorders: Arthritis, Chronic Back Pain Endocrine History of Endocrine Disorders: No HEENT History of HEENT Disorders: No Cancer History of Cancer: Yes Cancer: Lung Psychosocial History of Psychiatric Problem: Yes Behavioral Health Disorders: Anxiety, Depression Integumentary History of Skin or Integumenta: No Blood Transfusions History of Blood Disorders: No Adverse Reaction to a Blood Tr: No Reviewed Nursing Assessment Reviewed/Agree w Nursing PMH: Yes Family Medical History Significant Family History: No Pertinent Family Hx Family Medial History: FH: lung cancer 19 FATHER 19 MOTHER Physical Exam Vital Signs Vital Sign - Last 12Hours 09/13/17 11:55 Temp 97.5 Pulse 113 Resp 18 B/P (MAP) 138/83 (101) Pulse Ox 98 General Appearance: WD/WN, no apparent distress Eyes: right eye conjunctival hemorrhage (no evidence of corneal abrasion with fluorescein staining.), left eye normal inspection, bilateral eye PERRL, bilateral eye EOMI Ears: bilateral ear auricle normal, bilateral ear canal normal, bilateral ear TM normal Nose: normal inspection Mouth/Throat: normal mouth inspection, pharynx normal Neck: non-tender, supple, normal inspection Cardiovascular: regular rate, rhythm, no murmur Respiratory: lungs clear, normal breath sounds, no respiratory distress, no accessory muscle use Neurologic/Psychiatric: alert, normal mood/affect, oriented x 3 Skin: normal color, warm/dry Progress/Results/Core Measures Results/Orders My Orders Orders - BAM NEWTON Tetracaine 0.5% Ophth Kyung Sdv (Tetracai (09/13/17 12:15) Fluorescein Strips (Ybhbm-H-Gltirs) (09/13/17 12:15) Vital Signs/I&O Vital Sign - Last 12Hours 09/13/17 13:11 Pulse 101 Resp 18 Pulse Ox 98 Blood Pressure Mean: 101 Departure Communication (Admissions) Progress Notes Patient seen and evaluated. Plan for discharge to home with gentamicin ophthalmic drops. 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 Impression Impression: Primary Impression: Subconjunctival hemorrhage of right eye Disposition: HOME, SELF-CARE Condition: Improved Departure-Patient Inst. Decision time for Depature: 13:01 Referrals: SHELLEY ROSENBERG DO (PCP/Family) Primary Care Physician Patient Instructions: Subconjunctival Hemorrhage Add. Discharge Instructions: All discharge instructions reviewed with patient and/or family. Voiced understanding. Medications as directed. Tylenol over the counter as directed for pain if needed. Continue usual home medications. Follow up with your eye doctor for recheck. Call for appointment time. Return to the emergency department if worsened symptoms or any other concerns. Scripts Gentamicin Sulfate (Gentamicin Sulfate) 5 Ml Drops 2 DROP OP Q6H for 7 Days, #1 EA 0 Refills Prov: BAM NEWTON 09/13/17 BAM NEWTON Sep 13, 2017 12:42
[2017-09-13] MEDS ORDERED: GENT5DRO30 OP (13:05)
[2017-09-13 13:11] VITALS: BP 122/87
== END 2017-09-13 13:11 | disposition home or self-care (01) ==
LOC: EDUNIT# 11:50 → ER 11:52
DX: H11.31 Conjunctival hemorrhage, right eye (principal); J44.9 Chronic obstructive pulmonary disease, unspecified; I48.91 Unspecified atrial fibrillation; E78.00 Pure hypercholesterolemia, unspecified; K21.9 Gastro-esophageal reflux disease without esophagitis; F41.9 Anxiety disorder, unspecified; F32.9 Major depressive disorder, single episode, unspecified; Z77.22 Contact with and (suspected) exposure to environmental tobacco smoke (acute) (chronic); Z98.51 Tubal ligation status; Z85.118 Personal history of other malignant neoplasm of bronchus and lung; Z80.2 Family history of malignant neoplasm of other respiratory and intrathoracic organs
CPT/HCPCS: 99282

== ENCOUNTER → 2017-11-05 | Outpatient (CLI) | payer MEDICARE, MEDICAID ==
[~2017-11-05] VITALS: Ht 165.1 cm; Wt 95.7 kg
[~2017-11-05] MED LIST changes: +CATHETER FLUSH 10 ML SYR IV PRN; +GENT5DRO30 OP; +HYDR-34 PO; -HYDR-3816 PO; +REGADENOSON 0.4 MG/5 ML SYR (LEXISCAN) IV ONE
[2017-11-05 09:30] VITALS: BP 123/88
--- NOTE | 2017-11-05 18:54 | STRESS TEST ---
DATE OF SERVICE: 11/05/2017 PROCEDURE PERFORMED: Resting and post regadenoson technetium-99m Tetrofosmin SPECT CT imaging. ORDERING PHYSICIAN: Mere Chew MD, NALLELY, FACP, FACC. PRIMARY CARE PHYSICIAN: Dr. Cifuentes. CLINICAL DIAGNOSIS: Shortness of breath, palpitations, paroxysmal atrial fibrillation. DESCRIPTION OF PROCEDURE: Baseline images were carried out after injection of 10.73 mCi of technetium-99m Tetrofosmin. This was followed by 0.4 mg regadenoson and 30.1 mCi of technetium-99m Tetrofosmin for stress imaging. The electrocardiogram showed sinus tachycardia at baseline. The electrocardiogram did not change significantly with the regadenoson infusion. The patient tolerated the procedure well and did not report significant symptoms. Review of images at rest and following stress did not indicate any significant perfusion defects consistent with significant myocardial ischemia or infarction. Gated images show normal global left systolic function, normal regional wall motion. Left ventricular ejection fraction is calculated to be 69%. Left ventricular end diastolic volume is 54 mL. TID is absent (0.96). CONCLUSIONS: 1. No evidence of significant myocardial ischemia or infarction on this study. 2. Normal regional wall motion. 3. Normal global left systolic function with a calculated ejection fraction of 69%. 4. Sinus tachycardia at rest, during the study. Job ID: [id number] DocumentID: [id number] Dictated Date: 11/05/2017 15:02:53 [place] Date: 11/05/2017 18:53:09 Dictated By: MERE CHEW MD, NALLELY, FACP, FACC,
== END ==
LOC: CARD 08:05
PROVIDERS: ATTEND Internal Medicine Cardiovascular Disease
DX: I48.0 Paroxysmal atrial fibrillation (principal); R06.02 Shortness of breath; Z72.0 Tobacco use; R00.2 Palpitations; E66.9 Obesity, unspecified; J44.9 Chronic obstructive pulmonary disease, unspecified
CPT/HCPCS: 78452; 93017

== ENCOUNTER 2017-11-14 14:12 | Emergency (ER) | payer MEDICARE, MEDICAID ==
[~2017-11-14] VITALS: Ht 165.1 cm; Wt 93.4 kg
[~2017-11-14 14:12] MED LIST changes: -CATHETER FLUSH 10 ML SYR IV PRN; -REGADENOSON 0.4 MG/5 ML SYR (LEXISCAN) IV ONE
[2017-11-14 14:32] LABS: BASOPHILS % (AUTO) 1 % (0-10); EOSINOPHILS # (AUTO) 0.2 10^3/uL (0.0-0.3); EOSINOPHILS % (AUTO) 2 % (0-10); HEMATOCRIT 41 % (35-52); HEMOGLOBIN 13.8 G/DL (11.5-16.0); LYMPHOCYTES # (AUTO) 2.1 X 10^3 (1.0-4.0); LYMPHOCYTES % (AUTO) 25 % (12-44); MEAN CORPUSCULAR HEMOGLOBIN 33 PG (25-34); MEAN CORPUSCULAR HGB CONC 34 G/DL (32-36); MEAN CORPUSCULAR VOLUME 98 FL (80-99); MEAN PLATELET VOLUME 10.1 FL (7.4-10.4); MONOCYTES # (AUTO) 0.7 X 10^3 (0.0-1.0); MONOCYTES % (AUTO) 8 % (0-12); NEUTROPHILS # (AUTO) 5.5 X 10^3 (1.8-7.8); NEUTROPHILS % (AUTO) 65 % (42-75); PLATELET COUNT 266 10^3/uL (130-400); RED BLOOD COUNT 4.14 10^6/uL (4.35-5.85); RED CELL DISTRIBUTION WIDTH 13.9 % (10.0-14.5); WHITE BLOOD COUNT 8.5 10^3/uL (4.3-11.0)
--- NOTE | 2017-11-14 14:34 | ED General ---
General Chief Complaint: Respiratory Problems Stated Complaint: SOB,TACH Nursing Triage Note: Pt has hx COPD and AFib. Pt has been experiencing increased SOA and generalized weakness. Pt also c/o nausea. Nursing Sepsis Screen: No Definite Risk Source of Information: Patient Exam Limitations: No Limitations History of Present Illness Date Seen by Provider: Nov 14, 2017 Time Seen by Provider: 14:32 Initial Comments To ER per private vehicle with reports of 2-3 weeks worth of general fatigue and malaise most intense since last night. No fevers or chills. Chronic unchanged cough. No shortness of breath. Timing/Duration: 1-2 Days Severity: Moderate Associated Systoms: Fever/Chills Allergies and Home Medications Allergies Coded Allergies: No Known Drug Allergies (Verified , 07/24/17) Home Medications Albuterol Sulfate 18 Gm Hfa.aer.ad, 2 PUFF INH Q4H PRN for SHORTNESS OF BREATH, (Reported) Apixaban 5 Mg Tablet, 5 MG PO BID, (Reported) Diazepam 5 Mg Tablet, 5 MG PO BID PRN for ANXIETY, (Reported) Diltiazem HCl 240 Mg Cap.er.24h, 240 MG PO DAILY, (Reported) Diphenoxylate HCl/Atropine 1 Each Tablet, 1 TAB PO QID PRN for DIARRHEA, ( Reported) Estradiol 0.5 Mg Tablet, 0.5 MG PO DAILY, (Reported) Fexofenadine HCl 180 Mg Tablet, 180 MG PO DAILY, (Reported) Fluticasone Propionate 16 Gm [place].susp, 2 SPRAY NS DAILY, (Reported) Gabapentin 300 Mg Capsule, 300 MG PO TID PRN for NERVE PAIN, (Reported) Guaifenesin 1,200 Mg Tab.er.12h, 1,200 MG PO BID, (Reported) Hydrocodone Bit/Acetaminophen 1 Each Tablet, 1 TAB PO Q4H PRN for PAIN-MODERATE, (Reported) Ipratropium/Albuterol Sulfate 3 Ml Ampul.neb, 3 ML IH Q4H PRN for SHORTNESS OF BREATH, (Reported) Medroxyprogesterone Acetate 2.5 Mg Tablet, 2.5 MG PO DAILY, (Reported) Mometasone/Formoterol 13 Gm Hfa.aer.ad, 2 PUFF INH BID, (Reported) Montelukast Sodium 10 Mg Tablet, 10 MG PO HS, (Reported) Ondansetron 4 Mg Tab.rapdis, 4 MG PO Q4H PRN for NAUSEA/VOMITING, (Reported) Pantoprazole Sodium 40 Mg Tablet.dr, 40 MG PO DAILY, (Reported) Pravastatin Sodium 40 Mg Tablet, 40 MG PO HS, (Reported) Sucralfate 1 Gm/10 Ml Oral.susp, 10 ML PO QID PRN for STOMACH UPSET, (Reported) Terconazole 45 Gm Cream.appl, 1 APPFUL VG HS, (Reported) 7 DAY THERAPY FILLED 07-23-17 (NOT PICKED UP YET) Tiotropium Stirling 4 Gm Mist.inhal, 2 PUFF IH DAILY, (Reported) Varenicline Tartrate 1 Mg Tablet, 1 MG PO BID, (Reported) Patient Home Medication List Home Medication List Reviewed: Yes Constitutional: see HPI, No chills, No fever, malaise, weakness EENTM: see HPI Respiratory: cough (chronic and unchanged) Cardiovascular: no symptoms reported Genitourinary: no symptoms reported Skin: no symptoms reported Psychiatric/Neurological: No Symptoms Reported Hematologic/Lymphatic: No Symptoms Reported Past Sosxzkz-Yaxxgj-Vgpnoa Hx Patient Social History Alcohol Use: Occasionally Uses Number of Drinks Today: BB Alcohol Beverage of Choice: Beer, [place] Recreational Drug Use: No Smoking Status: Current Everyday Smoker Type Used: Cigarettes 2nd Hand Smoke Exposure: Yes Recent Foreign Travel: No Contact w/Someone Who Travel: No Recent Infectious Disease Expo: No Recent Hopitalizations: No Physical Abuse: No Sexual Abuse: No Immunizations Up To Date Tetanus Booster (TDap): Unknown Date of Pneumonia Vaccine: Oct 24, 2013 Date of Influenza Vaccine: May 26, 2017 Seasonal Allergies Seasonal Allergies: No Surgeries History of Surgeries: Yes (BUNIONECTOMY, NECK FUSION, BREAST IMPLANTS) Surgeries: Lobectomy, Tubal Ligation Respiratory History of Respiratory Disorde: Yes ( HX OF LUNG CA) Respiratory Disorders: Asthma, COPD Currently Using CPAP: No Currently Using BIPAP: No Cardiovascular History of Cardiac Disorders: No Cardiac Disorders: Atrial Fibrillation, High Cholesterol Neurological History of Neurological Disord: No 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 System Hx 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 Disorders: Yes (PMB) 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 Genitourinary History of Genitourinary Disor: No Gastrointestinal History of Gastrointestinal Di: No Gastrointestinal Disorders: Gastroesophageal Reflux, Irritable Bowel Musculoskeletal History of Musculoskeletal Dis: Yes Musculoskeletal Disorders: Arthritis, Chronic Back Pain Endocrine History of Endocrine Disorders: No HEENT History of HEENT Disorders: No Cancer History of Cancer: Yes Cancer: Lung Psychosocial History of Psychiatric Problem: Yes Behavioral Health Disorders: Anxiety, Depression Suicide Risk Score: 0 Integumentary History of Skin or Integumenta: No Blood Transfusions History of Blood Disorders: No Adverse Reaction to a Blood Tr: No Family Medical History Significant Family History: No Pertinent Family Hx Family Medial History: FH: lung cancer 19 FATHER 19 MOTHER Physical Exam Vital Signs Vital Signs - First Documented 11/14/17 14:18 Temp 98.1 Pulse 121 Resp 22 B/P (MAP) 110/90 (97) Pulse Ox 98 O2 Delivery Room Air Capillary Refill : Less Than 3 Seconds General Appearance: No Apparent Distress, WD/WN Eyes: Bilateral Eye Normal Inspection, Bilateral Eye PERRL, Bilateral Eye EOMI HEENT: PERRL/EOMI, TMs Normal Neck: Full Range of Motion Respiratory: Normal Breath Sounds, No Accessory Muscle Use, No Respiratory Distress Cardiovascular: Regular Rate, Rhythm, Normal Peripheral Pulses, Other (98% on room air) Gastrointestinal: Non Tender, Soft Extremity: Normal Capillary Refill, Normal Inspection Neurologic/Psychiatric: Alert, Oriented x3, No Motor/Sensory Deficits Skin: Normal Color, Warm/Dry Focused Exam Evaluation Lactate Level Laboratory Tests 11/14/17 14:30: Lactic Acid Level 0.98 Lactic Acid Level Progress/Results/Core Measures Suspected Sepsis Recent Fever Within 48 Hours: Yes Infection Criteria Present: None New/Unexplained Altered Menta: No Sepsis Screen: No Definite Risk Sepsis Diagnosis: SIRS Temperature:98.1 Pulse: 121 Respiratory Rate: 22 Laboratory Tests 11/14/17 14:22: White Blood Count 8.5 Blood Pressure 110 /90 Mean: 97 Laboratory Tests 11/14/17 14:30: Lactic Acid Level 0.98 Laboratory Tests 11/14/17 14:22: Creatinine 0.77, Platelet Count 266, Total Bilirubin 0.3 Results/Orders Lab Results Laboratory Tests Test 11/14/17 13:55 11/14/17 14:22 11/14/17 14:30 11/14/17 15:04 Range/Units Thyroid Stimulating Hormone (TSH) 0.65 0.35-4.94 UIU/ML Free Thyroxine 1.08 0.70-1.48 NG/DL White Blood Count 8.5 4.3-11.0 10^3/uL Red Blood Count 4.14 L 4.35-5.85 10^6/uL Hemoglobin 13.8 11.5-16.0 G/DL Hematocrit 41 35-52 % Mean Corpuscular Volume 98 80-99 FL Mean Corpuscular Hemoglobin 33 25-34 PG Mean Corpuscular Hemoglobin Concent 34 32-36 G/DL Red Cell Distribution Width 13.9 10.0-14.5 % Platelet Count 266 130-400 10^3/uL Mean Platelet Volume 10.1 7.4-10.4 FL Neutrophils (%) (Auto) 65 42-75 % Lymphocytes (%) (Auto) 25 12-44 % Monocytes (%) (Auto) 8 0-12 % Eosinophils (%) (Auto) 2 0-10 % Basophils (%) (Auto) 1 0-10 % Neutrophils # (Auto) 5.5 1.8-7.8 X 10^3 Lymphocytes # (Auto) 2.1 1.0-4.0 X 10^3 Monocytes # (Auto) 0.7 0.0-1.0 X 10^3 Eosinophils # (Auto) 0.2 0.0-0.3 10^3/uL Basophils # (Auto) 0.0 0.0-0.1 10^3/uL Sodium Level 138 135-145 MMOL/L Potassium Level 3.7 3.6-5.0 MMOL/L Chloride Level 107 98-107 MMOL/L Carbon Dioxide Level 22 21-32 MMOL/L Anion Gap 9 5-14 MMOL/L Blood Urea Nitrogen 11 7-18 MG/DL Creatinine 0.77 0.60-1.30 MG/DL Estimat Glomerular Filtration Rate > 60 BUN/Creatinine Ratio 14 Glucose Level 118 H 70-105 MG/DL Calcium Level 9.8 8.5-10.1 MG/DL Total Bilirubin 0.3 0.1-1.0 MG/DL Aspartate Amino Transf (AST/SGOT) 17 5-34 U/L Alanine Aminotransferase (ALT/SGPT) 19 0-55 U/L Alkaline Phosphatase 66 40-136 U/L Total Protein 7.4 6.4-8.2 GM/DL Albumin 4.4 3.2-4.5 GM/DL Lactic Acid Level 0.98 0.50-2.00 MMOL/L Urine Color YELLOW Urine Clarity CLEAR Urine pH 5 5-9 Urine Specific [place] 1.020 1.016-1.022 Urine Protein NEGATIVE NEGATIVE Urine Glucose (UA) NEGATIVE NEGATIVE Urine Ketones NEGATIVE NEGATIVE Urine Nitrite NEGATIVE NEGATIVE Urine Bilirubin NEGATIVE NEGATIVE Urine Urobilinogen NORMAL NORMAL MG/DL Urine Leukocyte Esterase NEGATIVE NEGATIVE Urine RBC (Auto) 3+ H NEGATIVE Urine RBC 10-25 H /HPF Urine WBC RARE /HPF Urine Squamous Epithelial Cells 5-10 /HPF Urine Crystals NONE /LPF Urine Bacteria TRACE /HPF Urine Casts NONE /LPF Urine Mucus MODERATE H /LPF Urine Culture Indicated NO My Orders Orders - VIVIAN BARRERA APRN Cbc With Automated Diff (11/14/17 14:22) Comprehensive Metabolic Panel (11/14/17 14:22) Lactic Acid Analyzer (11/14/17 14:22) Blood Culture (11/14/17 14:22) Chest Pa/Lat (2 View) (11/14/17 14:22) Saline Lock/Iv-Start (11/14/17 14:24) Ua Culture If Indicated (11/14/17 14:28) Thyroid Stimulating Hormone (11/14/17 14:28) Free T4 (Free Thyroxine) (11/14/17 14:28) Vital Signs/I&O Vital Sign - Last 12Hours 11/14/17 11/14/17 14:18 16:22 Temp 98.1 Pulse 121 88 Resp 22 22 B/P (MAP) 110/90 (97) 110/90 (97) Pulse Ox 98 98 O2 Delivery Room Air Capillary Refill : Less Than 3 Seconds Blood Pressure Mean: 97 Departure Impression Impression: Primary Impression: General Fatigue Disposition: 01 HOME, SELF-CARE Condition: Stable Departure-Patient Inst. Decision time for Depature: 16:13 Referrals: SHELLEY ROSENBERG DO (PCP/Family) Primary Care Physician Patient Instructions: NO INSTRUCTIONS GIVEN Add. Discharge Instructions: 1. Follow up with Dr Jacobson 2. REturn to ER for any concerns All discharge instructions reviewed with patient and/or family. Voiced understanding. Copy Copies To 1: SANDEE JACOBSON MD, PETER J APRN Nov 14, 2017 14:34
[2017-11-14 14:47] LABS: ALANINE AMINOTRANSFERASE 19 U/L (0-55); ALBUMIN 4.4 GM/DL (3.2-4.5); ALKALINE PHOSPHATASE 66 U/L (40-136); BILIRUBIN,TOTAL 0.3 MG/DL (0.1-1.0); BUN/CREATININE RATIO 14; CALCIUM 9.8 MG/DL (8.5-10.1); CARBON DIOXIDE 22 MMOL/L (21-32); CHLORIDE 107 MMOL/L (98-107); CREATININE SERUM 0.77 MG/DL (0.60-1.30); GFR ESTIMATED > 60; GLUCOSE 118 MG/DL (70-105); POTASSIUM 3.7 MMOL/L (3.6-5.0); SODIUM 138 MMOL/L (135-145); TOTAL PROTEIN 7.4 GM/DL (6.4-8.2)
[2017-11-14 15:09] LABS: FREE T4 (FREE THYROXINE) 1.08 NG/DL (0.70-1.48)
[2017-11-14 15:25] LABS: BILIRUBIN,URINE NEGATIVE (NEGATIVE); CLARITY,URINE CLEAR; COLOR,URINE YELLOW; GLUCOSE, URINE (UA) NEGATIVE (NEGATIVE); KETONES,URINE NEGATIVE (NEGATIVE); LEUKOCYTE ESTERASE ,URINE NEGATIVE (NEGATIVE); NITRITE,URINE NEGATIVE (NEGATIVE); PH,URINE 5 (5-9); PROTEIN,URINE NEGATIVE (NEGATIVE); UROBILINOGEN,URINE NORMAL (NORMAL)
--- NOTE | 2017-11-14 15:37 | Diagnostic Imaging Report ---
INDICATION: Complaining of nausea, generalized weakness, increased shortness of air. HIstory of COPD and Atrial fibrillation. EXAMINATION: PA and lateral chest was obtained at 3:03 p.m. COMPARISON: 07/24/2017. FINDINGS: Heart is normal in size. There are COPD changes. There is no acute consolidation, pneumothorax or pleural fluid. There is some perihilar scarring on the right side with metallic markers in place, There are three markers in placed over a right apical lung nodule versus scar. IMPRESSION: COPD changes. Postop changes in right perihilar region and right upper lobe medially with some residual scarring and/or nodularity. No consolidation or pleural fluid. Dictated by: Dictated on workstation # [id number]
[2017-11-14 15:53] LABS: BACTERIA,URINE TRACE /HPF; WBC,URINE RARE /HPF
[2017-11-14 16:22] VITALS: BP 110/90
== END 2017-11-14 16:22 | disposition home or self-care (01) ==
LOC: EDUNIT# 14:12 → ER 14:14
DX: R53.83 Other fatigue (principal); J44.9 Chronic obstructive pulmonary disease, unspecified; I48.91 Unspecified atrial fibrillation; E78.00 Pure hypercholesterolemia, unspecified; K21.9 Gastro-esophageal reflux disease without esophagitis; F41.9 Anxiety disorder, unspecified; F32.9 Major depressive disorder, single episode, unspecified; F17.210 Nicotine dependence, cigarettes, uncomplicated; Z79.01 Long term (current) use of anticoagulants; Z87.19 Personal history of other diseases of the digestive system; Z80.1 Family history of malignant neoplasm of trachea, bronchus and lung; Z79.52 Long term (current) use of systemic steroids; Z98.1 Arthrodesis status; Z98.51 Tubal ligation status; Z79.51 Long term (current) use of inhaled steroids
CPT/HCPCS: 36415; 71046; 80053; 81000; 83605; 84439; 84443; 85025; 87040

== ENCOUNTER → 2017-12-11 | Outpatient (CLI) | payer MEDICARE, MEDICAID ==
[~2017-12-11] MED LIST changes: +ACET600C PO; +AZIT250T12 PO; +CALC-901 PO; +CHOL10007 PO; +CYAN250T PO; +DEXL60CA PO; +FLUO10CA19 PO; +HYDR-3820 PO; -IPRA3AMP IH; +IPRA3AMP31 IH; +MEDR5TAB4 PO; +NITR-65 PO; +PHEN-640 PO; +ROFL500T4 PO
--- NOTE | 2017-12-11 13:08 | Diagnostic Imaging Report ---
CLINICAL INDICATION: Patient states she is having cervical spine pain, body pain. Patient has previous cervical spine surgery in 2000. EXAMINATION: MRI of the cervical spine performed without IV contrast. Sequences include sagittal T2, sagittal T1, sagittal T2 fat-sat, and axial T2. COMPARISON: MRI of the cervical spine performed without IV contrast dated 07/11/2015. FINDINGS: There is stable postop change to the cervical spine with C6-C7 anterior cervical interbody fusion. There is stable solid intervertebral bony bridging/fusion seen in the region. There is no adjacent paraspinal soft tissue abnormality or fluid collection. Limited visualization of posterior fossa and cervical spinal cord shows no significant abnormality. There is no significant paraspinal soft tissue abnormality. C1-C2: There are small degenerative spurs involving the atlantoodontoid interval which are stable. The remainder of this level is unremarkable. C2-C3: There is stable moderate right facet arthropathy/hypertrophy. There is iuel-ry-cieghwpf right neural foramen narrowing which is stable. There is no significant central canal or left neural foramen narrowing. C3-C4: There is interval resolution of the previously seen small central posterior disc bulge. There is stable minimal bilateral facet arthropathy. There is mild central canal narrowing which has slightly improved. There is no significant neural foramen narrowing. C4-C5: Again seen diffuse disc bulge with hypertrophic disc spur extending into the left subarticular region. There is mild loss of intervertebral disc height and hypertrophic anterior disc spur. There is severe central canal narrowing which has progressed possibly from increased posterior disc spurs. There is stable severe left neural foramen narrowing. There is no significant right neural foramen narrowing. C5-C6: Again seen diffuse disc bulge with moderate loss of intervertebral disc height. There are hypertrophic bilateral uncinate spurs, anterior spurs and posterior disc spurs. There is stable rxxuyklf-wd-yulvss central canal narrowing, rqbwarjv-sr-ymjhms right neural foramen narrowing and severe left neural foramen narrowing. C6-C7: Again seen small and stable perineural cyst in the bilateral neural foramen regions. There is no significant central canal narrowing. There is stable rbkj-hj-ieemzrln left neural foramen narrowing possibly from small vertebral body spurring. C7-T1: There is a small anterior disc bulge. Stable perineural cyst in the left neural foramen region measuring roughly 11 mm. The one on the right side is not well visualized on this exam. There is no significant central canal or neural foramen narrowing. IMPRESSION: 1: There is pvilagnv-ml-wjkclw multilevel cervical spine degenerative disc disease which has progressed at the C4-C5 level. Otherwise, the remainder of the cervical spine is not significantly changed in the interim. 2: There is stable C6-C7 anterior cervical interbody fusion with solid intervertebral bony bridging/fusion. 3: Stable multilevel perineural cysts, as described above. Dictated by: Dictated on workstation # [id number]
== END ==
LOC: RAD 11:46
PROVIDERS: ATTEND Student in an Organized Health Care Education/Training Program
DX: M48.02 Spinal stenosis, cervical region (principal); M99.51 Intervertebral disc stenosis of neural canal of cervical region; M50.13 Cervical disc disorder with radiculopathy, cervicothoracic region; Z98.1 Arthrodesis status
CPT/HCPCS: 72141

== ENCOUNTER → 2018-01-02 | Outpatient (CLI) | payer MEDICARE, MEDICAID ==
[~2018-01-02] MED LIST changes: -ACET600C PO; -AZIT250T12 PO; -CALC-901 PO; -CHOL10007 PO; -CYAN250T PO; -DEXL60CA PO; -FLUO10CA19 PO; -HYDR-3820 PO; +IPRA3AMP IH; -IPRA3AMP31 IH; -MEDR5TAB4 PO; -NITR-65 PO; -PHEN-640 PO; -ROFL500T4 PO
== END ==
LOC: PREOP 05:57
PROVIDERS: ATTEND Obstetrics & Gynecology
DX: Z01.818 Encounter for other preprocedural examination (principal)

== ENCOUNTER 2018-02-17 09:15 | Outpatient (CLI) | payer MEDICARE, MEDICAID ==
[~2018-02-17] VITALS: Ht 165.1 cm; Wt 86.2 kg
[2018-02-17 09:26] VITALS: BP 109/68
[2018-02-17] MEDS ORDERED: MEDR5TAB4 PO (09:57)
[2018-02-17] MEDS ORDERED: CHOL10007 PO (09:57)
[2018-02-17] MEDS ORDERED: CALC-901 PO (09:57)
[2018-02-17] MEDS ORDERED: HYDR-3820 PO (09:57)
[2018-02-17] MEDS ORDERED: FLUO10CA19 PO (09:57)
[2018-02-17] MEDS ORDERED: DEXL60CA PO (09:57)
[2018-02-17] MEDS ORDERED: ROFL500T4 PO (09:57)
[2018-02-17] MEDS ORDERED: UMEC62.5 IH (09:57)
[2018-02-17] MEDS ORDERED: CYAN250T PO (09:57)
[2018-02-17] MEDS ORDERED: AZIT250T12 PO (09:57)
[2018-02-17] MEDS ORDERED: ACET600C PO (09:57)
[2018-02-18] MEDS ORDERED: NITR-65 PO (08:59)
[2018-02-18] MEDS ORDERED: PHEN-640 PO (08:59)
== END 2018-02-17 09:45 | disposition home or self-care (01) ==
LOC: PREOP 09:15
PROVIDERS: ATTEND Urology
DX: Z01.818 Encounter for other preprocedural examination (principal)
CPT/HCPCS: 87081

== ENCOUNTER 2018-03-12 13:36 | Emergency (ER) | payer MEDICARE, MEDICAID ==
[~2018-03-12] VITALS: Ht 165.1 cm; Wt 84.8 kg
[~2018-03-12 13:36] MED LIST changes: +ACET600C PO; +AZIT250T12 PO; +CALC-901 PO; +CHOL10007 PO; +CYAN250T PO; +DEXL60CA PO; +FLUO10CA19 PO; +HYDR-3820 PO; -IPRA3AMP IH; +IPRA3AMP31 IH; +MEDR5TAB4 PO; +NITR-65 PO; +PHEN-640 PO; +ROFL500T4 PO
[2018-03-12] MEDS ORDERED: RT-ALBUTEROL/IPRATROPIUM 3 ML (DUONEB) VIAL INH ONE ×2 (14:15→16:30)
[2018-03-12 15:52] LABS: BASOPHILS % (AUTO) 0 % (0-10); EOSINOPHILS % (AUTO) 0 % (0-10); HEMATOCRIT 39 % (35-52); HEMOGLOBIN 12.9 G/DL (11.5-16.0); LYMPHOCYTES # (AUTO) 1.1 X 10^3 (1.0-4.0); LYMPHOCYTES % (AUTO) 8 % (12-44); MEAN CORPUSCULAR HEMOGLOBIN 34 PG (25-34); MEAN CORPUSCULAR HGB CONC 34 G/DL (32-36); MEAN CORPUSCULAR VOLUME 100 FL (80-99); MEAN PLATELET VOLUME 10.4 FL (7.4-10.4); MONOCYTES # (AUTO) 0.4 X 10^3 (0.0-1.0); MONOCYTES % (AUTO) 3 % (0-12); NEUTROPHILS # (AUTO) 11.6 X 10^3 (1.8-7.8); NEUTROPHILS % (AUTO) 89 % (42-75); PLATELET COUNT 299 10^3/uL (130-400); RED BLOOD COUNT 3.84 10^6/uL (4.35-5.85); RED CELL DISTRIBUTION WIDTH 16.5 % (10.0-14.5); WHITE BLOOD COUNT 13.1 10^3/uL (4.3-11.0)
[2018-03-12 15:57] LABS: ALANINE AMINOTRANSFERASE 21 U/L (0-55); ALBUMIN 4.2 GM/DL (3.2-4.5); ALKALINE PHOSPHATASE 61 U/L (40-136); BILIRUBIN,TOTAL 0.5 MG/DL (0.1-1.0); BUN/CREATININE RATIO 19; CALCIUM 9.6 MG/DL (8.5-10.1); CARBON DIOXIDE 26 MMOL/L (21-32); CHLORIDE 106 MMOL/L (98-107); CREATININE SERUM 0.74 MG/DL (0.60-1.30); GFR ESTIMATED > 60; GLUCOSE 134 MG/DL (70-105); POTASSIUM 3.5 MMOL/L (3.6-5.0); SODIUM 141 MMOL/L (135-145)
[2018-03-12 16:08] LABS: BAND NEUTROPHILS 1 %; BASOPHILS % (MANUAL) 0 %; EOSINOPHILS % (MANUAL) 0 %; LYMPHOCYTES % (MANUAL) 8 %; MONOCYTES % (MANUAL) 3 %; NEUTROPHILS % (MANUAL) 88 %; RBC MORPH NORMAL
--- NOTE | 2018-03-12 16:27 | ED Respiratory ---
General Chief Complaint: Respiratory Problems Stated Complaint: SOA Nursing Triage Note: PT CO OF SOA, PT STATES WAS SEEN IN [place] ED LAST WEEK, PT STATES SPOKE W DR SHELLEY CASH TODAY AND WAS TOLD IF SHE DID NOT GET BETTER TO GO TO ED. Source: patient Exam Limitations: no limitations History of Present Illness Date Seen by Provider: Mar 12, 2018 Time Seen by Provider: 16:21 Initial Comments Patient is a 57-year-old female who presents to the emergency room with complaints of exacerbation of COPD. She reports that she was seen in [facility] emergency room on 03/07/18 and was given a prednisone burst pack a prescription for Augmentin she has finished her prednisone and is currently on her last dose of her Augmentin today. She reports that she is not really getting much better and was told that she also had a viral illness. She denies fevers, productive cough, and chest pain. She reports that her sputum culture results were called to her today and they were normal no bacterial growth. She reports that she is having a lot of nasal congestion, nasal drainage, and allergies. Timing/Duration: week Prior Episodes/Possible Cause: chronic episodes Modifying Factors: Improves With Albuterol Inhaler, Improves With Albuterol Nebulizer Associated Symptoms: cough; No fever/chills; nasal congestion, nasal drainage; No sore throat; wheezing Allergies and Home Medications Allergies Coded Allergies: No Known Drug Allergies (Verified , 07/24/17) Home Medications Acetylcysteine 600 Mg Capsule, 600 MG PO DAILY PRN for CONGESTION, (Reported) Albuterol Sulfate 18 Gm Hfa.aer.ad, 2 PUFF INH Q4H PRN for SHORTNESS OF BREATH, (Reported) Azithromycin 250 Mg Tablet, 250 MG PO DAILY, (Reported) Calcium Carbonate/Vitamin D3 1 Each Tablet, 1 EACH PO DAILY, (Reported) Cholecalciferol (Vitamin D3) 1,000 Unit Capsule, 1,000 UNIT PO DAILY, (Reported) Cyanocobalamin (Vitamin B-12) 250 Mcg Tablet, 250 MCG PO DAILY, (Reported) Dexlansoprazole 60 Mg Cap.dr.bp, 60 MG PO DAILY, (Reported) Diazepam 5 Mg Tablet, 5 MG PO BID PRN for ANXIETY, (Reported) Diltiazem HCl 240 Mg Cap.er.24h, 240 MG PO DAILY, (Reported) Estradiol 0.5 Mg Tablet, 0.5 MG PO DAILY, (Reported) Fexofenadine HCl 180 Mg Tablet, 180 MG PO DAILY, (Reported) Fluoxetine HCl 10 Mg Capsule, 10 MG PO DAILY, (Reported) Fluticasone Propionate 16 Gm [place].susp, 2 SPRAY NS DAILY, (Reported) Hydrocodone/Acetaminophen 1 Each Tablet, 1 EACH PO Q6H PRN for PAIN-MILD TO MODERATE, (Reported) Ipratropium/Albuterol Sulfate 3 Ml Ampul.neb, 3 ML IH Q4H PRN for SHORTNESS OF BREATH, (Reported) Medroxyprogesterone Acetate 5 Mg Tablet, 5 MG PO DAILY, (Reported) Mometasone/Formoterol 13 Gm Hfa.aer.ad, 2 PUFF INH BID, (Reported) Montelukast Sodium 10 Mg Tablet, 10 MG PO HS, (Reported) Nitrofurantoin Monohyd/M-Cryst 100 Mg Capsule, 1 TAB PO BID WITH MEALS Prescribed by: LEISA LOYA on 02/18/18 0859 Ondansetron 4 Mg Tab.rapdis, 4 MG PO Q4H PRN for NAUSEA/VOMITING, (Reported) Phenazopyridine HCl 200 Mg Tablet, 1 TAB PO TID Prescribed by: LEISA LOYA on 02/18/18 0859 Pravastatin Sodium 40 Mg Tablet, 40 MG PO HS, (Reported) Roflumilast 500 Mcg Tablet, 500 MCG PO DAILY, (Reported) Sucralfate 1 Gm/10 Ml Oral.susp, 10 ML PO QID PRN for STOMACH UPSET, (Reported) Umeclidinium [place] 62.5 Mcg Blst.w.dev, 62.5 MCG IH DAILY, (Reported) Varenicline Tartrate 1 Mg Tablet, 1 MG PO BID, (Reported) Patient Home Medication List Home Medication List Reviewed: Yes Review of Systems Constitutional: see HPI; No chills, No diaphoresis, No dizziness EENTM: see HPI; No no symptoms reported, No ear discharge, No hearing loss Respiratory: see HPI, cough, dyspnea on exertion, short of breath, wheezing, other Cardiovascular: see HPI; No chest pain, No edema, No Hx of Intervention Gastrointestinal: see HPI; No abdominal pain, No constipation, No diarrhea Genitourinary: see HPI; No decreased output, No discharge Musculoskeletal: see HPI; No back pain, No gout, No joint pain Skin: see HPI; No change in color, No change in hair/nails Psychiatric/Neurological: See HPI; Denies Anxiety, Denies Depressed, Denies Emotional Problems Hematologic/Lymphatic: See HPI; Denies Anemia Immunological/Allergic: denies see HPI, denies food allergy All Other Systems Reviewed Negative Unless Noted: Yes Past Pbgnvjc-Eswgya-Vewhrj Hx Past Med/Social Hx: Reviewed Nursing Past Med/Soc Hx Patient Social History Alcohol Use: Occasionally Uses Number of Drinks Today: BB Alcohol Beverage of Choice: Beer, [place] Recreational Drug Use: No Smoking Status: Current Everyday Smoker Type Used: Cigarettes 2nd Hand Smoke Exposure: Yes Recent Foreign Travel: No Contact w/Someone Who Travel: No Recent Infectious Disease Expo: No Recent Hopitalizations: No Immunizations Up To Date Tetanus Booster (TDap): Unknown Date of Pneumonia Vaccine: Oct 24, 2013 Date of Influenza Vaccine: May 26, 2017 Seasonal Allergies Seasonal Allergies: Yes Past Medical History Surgeries: Yes (BUNIONECTOMY, NECK FUSION, BREAST IMPLANTS) Lobectomy, Tubal Ligation Respiratory: Yes ( HX OF LUNG CA, doing sleep study soon, wears oxygen at hs) Asthma, COPD Currently Using CPAP: No Currently Using BIPAP: No Cardiac: No Atrial Fibrillation, High Cholesterol Neurological: No 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 Genitourinary: No Gastrointestinal: Yes Gastroesophageal Reflux, Irritable Bowel Musculoskeletal: Yes (joint pain) Arthritis, Chronic Back Pain Endocrine: No HEENT: No Cancer: Yes Lung What Type of Treatment Did You: Chemotherapy, Radiation, Surgical Intervention Psychosocial: Yes Anxiety, Depression Integumentary: No Blood Disorders: No Adverse Reaction/Blood Tranf: No Family Medical History Reviewed Nursing Family Hx FH: lung cancer 19 FATHER 19 MOTHER No Pertinent Family Hx Physical Exam Vital Signs - First Documented 03/12/18 03/12/18 13:38 14:10 Temp 98.1 Pulse 118 Resp 18 B/P (MAP) 101/59 (73) Pulse Ox 92 O2 Delivery Room Air O2 Flow Rate 2.00 Capillary Refill : Less Than 3 Seconds Height: 5'5.00" Weight: 187lbs. 0.0oz. 84.194471li; 31.6 BMI Method:Stated General Appearance: WD/WN, no apparent distress Eyes: Bilateral Eye Normal Inspection, Bilateral Eye PERRL, Bilateral Eye EOMI HEENT: PERRL/EOMI, normal ENT inspection, TMs normal, pharynx normal Neck: non-tender, full range of motion, supple, normal inspection Respiratory: chest non-tender, normal breath sounds, no respiratory distress, no accessory muscle use, wheezing (faint wheezes in the lower) Cardiovascular: regular rate, rhythm ( lobes bilaterally), no edema, no gallop , no JVD, no murmur Gastrointestinal: normal bowel sounds, non tender, soft, no organomegaly, no pulsatile mass Extremities: normal range of motion, non-tender, normal inspection, no pedal edema, no calf tenderness Neurologic/Psychiatric: alert, normal mood/affect, oriented x 3 Skin: normal color, warm/dry Lymphatic: no adenopathy Progress/Results/Core Measures Suspected Sepsis Recent Fever Within 48 Hours: No Infection Criteria Present: None New/Unexplained Altered Menta: No Sepsis Screen: No Definite Risk SIRS Temperature:98.1 Pulse: 118 Respiratory Rate: 18 Laboratory Tests 03/12/18 14:05: White Blood Count 13.1H Blood Pressure 101 /59 Mean: 73 Laboratory Tests 03/12/18 14:05: Creatinine 0.74, Platelet Count 299, Total Bilirubin 0.5 Results/Orders Lab Results Laboratory Tests Test 03/12/18 14:05 Range/Units White Blood Count 13.1 H 4.3-11.0 10^3/uL Red Blood Count 3.84 L 4.35-5.85 10^6/uL Hemoglobin 12.9 11.5-16.0 G/DL Hematocrit 39 35-52 % Mean Corpuscular Volume 100 H 80-99 FL Mean Corpuscular Hemoglobin 34 25-34 PG Mean Corpuscular Hemoglobin Concent 34 32-36 G/DL Red Cell Distribution Width 16.5 H 10.0-14.5 % Platelet Count 299 130-400 10^3/uL Mean Platelet Volume 10.4 7.4-10.4 FL Neutrophils (%) (Auto) 89 H 42-75 % Lymphocytes (%) (Auto) 8 L 12-44 % Monocytes (%) (Auto) 3 0-12 % Eosinophils (%) (Auto) 0 0-10 % Basophils (%) (Auto) 0 0-10 % Neutrophils # (Auto) 11.6 H 1.8-7.8 X 10^3 Lymphocytes # (Auto) 1.1 1.0-4.0 X 10^3 Monocytes # (Auto) 0.4 0.0-1.0 X 10^3 Eosinophils # (Auto) 0.0 0.0-0.3 10^3/uL Basophils # (Auto) 0.0 0.0-0.1 10^3/uL Neutrophils % (Manual) 88 % Lymphocytes % (Manual) 8 % Monocytes % (Manual) 3 % Eosinophils % (Manual) 0 % Basophils % (Manual) 0 % Band Neutrophils 1 % Blood Morphology Comment NORMAL Sodium Level 141 135-145 MMOL/L Potassium Level 3.5 L 3.6-5.0 MMOL/L Chloride Level 106 98-107 MMOL/L Carbon Dioxide Level 26 21-32 MMOL/L Anion Gap 9 5-14 MMOL/L Blood Urea Nitrogen 14 7-18 MG/DL Creatinine 0.74 0.60-1.30 MG/DL Estimat Glomerular Filtration Rate > 60 BUN/Creatinine Ratio 19 Glucose Level 134 H 70-105 MG/DL Calcium Level 9.6 8.5-10.1 MG/DL Total Bilirubin 0.5 0.1-1.0 MG/DL Aspartate Amino Transf (AST/SGOT) 11 5-34 U/L Alanine Aminotransferase (ALT/SGPT) 21 0-55 U/L Alkaline Phosphatase 61 40-136 U/L Total Protein 7.0 6.4-8.2 GM/DL Albumin 4.2 3.2-4.5 GM/DL My Orders Orders - JUSTO MAYA Chest Pa/Lat (2 View) (03/12/18 15:38) Cbc With Automated Diff (03/12/18 15:38) Comprehensive Metabolic Panel (03/12/18 15:38) Manual Differential (03/12/18 14:05) Albuterol/Ipra Inhalation Soln (Duoneb I (03/12/18 16:30) Svn Small Volume Nebulizer (03/12/18 16:17) Medications Given in ED Vital Signs/I&O 03/12/18 03/12/18 03/12/18 03/12/18 13:38 14:10 16:49 17:53 Temp 98.1 98.1 Pulse 118 118 Resp 18 18 B/P (MAP) 101/59 (73) 101/59 (73) Pulse Ox 92 93 95 95 O2 Delivery Room Air Nasal Cannula Nasal Cannula Room Air O2 Flow Rate 2.00 2.00 2.00 Capillary Refill : Less Than 3 Seconds Blood Pressure Mean: 73 Progress Note : Progress Note Patient is feeling much better after the administration of the DuoNeb. She agrees with close follow-up with her stump shooter and primary care physician. She agrees with plans of discharge. She really wanted IV steroids and I informed her that she's been on a lot of steroids having just finished her prednisone burst pack. She agrees with my reasoning. Diagnostic Imaging Diagonstic Imaging: Xray Plain Films/CT/US/NM/MRI: chest Comments NAME: ROC NAYAK [facility] REC#: [id number] PT STATUS: REG ER : 1960 PHYSICIAN: JUSTO MAYA ADMIT DATE: 03/12/18/ER Signed Date of Exam: 03/12/18 CHEST PA/LAT (2 VIEW) PATIENT HISTORY: Lung cancer, shortness of breath, COPD. TECHNIQUE: Two views of the chest. COMPARISON: Chest x-ray from 11/14/2017, PET/CT from 09/03/2017. FINDINGS: Lung volumes are large. No new focal consolidation is seen. There are postsurgical changes and scarring in the right upper lobe. No pleural effusion or pneumothorax is seen. The cardiomediastinal silhouette is normal in size and contour. Cervical spine fusion hardware is noted. IMPRESSION: 1. Stable postsurgical changes in the right lung with no acute pulmonary abnormality seen. Dictated by: Dictated on workstation # [id number] Dict: 03/12/18 1614 Trans: 03/12/18 1652 Interpreted by: PHOEBE DUQUE MD Electronically signed by: PHOEBE DUQUE MD 03/12/18 1652 Reviewed: Reviewed by Me Departure Impression Primary Impression: COPD with acute exacerbation Disposition: 01 HOME, SELF-CARE Condition: Stable/Unchanged Departure-Patient Inst. Decision time for Depature: 17:36 Referrals: SHELLEY ROSENBERG DO (PCP) Primary Care Physician Patient Instructions: Chronic Bronchitis (DC), Chronic Obstructive Pulmonary Disease (COPD), Including Emphysema Add. Discharge Instructions: Continue your home medications as previously prescribed. Follow up with your doctor and stump shooter within 1 week for recheck. Return back to the emergency room for any and shortness of breath, cough, fever, or any other concerns as needed. All discharge instructions reviewed with patient and/or family. Voiced understanding. JUSTO MAYA Mar 12, 2018 16:26
--- NOTE | 2018-03-12 16:49 | Diagnostic Imaging Report ---
PATIENT HISTORY: Lung cancer, shortness of breath, COPD. TECHNIQUE: Two views of the chest. COMPARISON: Chest x-ray from 11/14/2017, PET/CT from 09/03/2017. FINDINGS: Lung volumes are large. No new focal consolidation is seen. There are postsurgical changes and scarring in the right upper lobe. No pleural effusion or pneumothorax is seen. The cardiomediastinal silhouette is normal in size and contour. Cervical spine fusion hardware is noted. IMPRESSION: 1. Stable postsurgical changes in the right lung with no acute pulmonary abnormality seen. Dictated by: Dictated on workstation # [id number]
[2018-03-12 17:53] VITALS: BP 101/59
== END 2018-03-12 17:53 | disposition home or self-care (01) ==
LOC: EDUNIT# 13:36 → ER 13:37
DX: J44.1 Chronic obstructive pulmonary disease with (acute) exacerbation (principal); I48.91 Unspecified atrial fibrillation; E78.00 Pure hypercholesterolemia, unspecified; F41.9 Anxiety disorder, unspecified; F32.9 Major depressive disorder, single episode, unspecified; K21.9 Gastro-esophageal reflux disease without esophagitis; F17.210 Nicotine dependence, cigarettes, uncomplicated; Z87.19 Personal history of other diseases of the digestive system; Z80.1 Family history of malignant neoplasm of trachea, bronchus and lung; Z79.51 Long term (current) use of inhaled steroids; Z98.1 Arthrodesis status; Z98.51 Tubal ligation status; Z90.2 Acquired absence of lung [part of]; Z85.118 Personal history of other malignant neoplasm of bronchus and lung; Z99.81 Dependence on supplemental oxygen; Z92.21 Personal history of antineoplastic chemotherapy
CPT/HCPCS: 36415; 71046; 80053; 85007; 85027; 94640; 94664

== ENCOUNTER → 2018-04-14 | Outpatient (CLI) | payer MEDICARE, MEDICAID ==
[~2018-04-14] MED LIST changes: +GADOBUTROL 10 MMOL/10 ML (GADAVIST) VIAL IV ONE
--- NOTE | 2018-04-14 12:24 | Diagnostic Imaging Report ---
CLINICAL INDICATION: Patient having new onset tremors, headaches. Patient has history of lung cancer 10 and 2 years ago. EXAMINATION: MRI of the brain performed without and with 8 cc of Gadavist IV contrast. Sequences include axial DWI, ADC map, axial gradient echo, axial T2, axial FLAIR, axial T1, axial T1 post IV contrast, coronal T1 fat-sat post IV contrast, and sagittal T1 post IV contrast. COMPARISON: MRI of the brain performed without and with IV contrast dated 05/19/2009. Head CT without contrast dated 03/28/2016. FINDINGS: There is no evidence of acute cerebral infarct, intracranial hemorrhage, or gross mass effect. The brain parenchymal volume appears appropriate for patient's age. There are slight increase focal patchy areas of high T2 signal white matter changes from both cerebral hemispheres and posterior periventricular regions, likely related to chronic small vessel ischemic disease. There is normal isbell-white matter distinction. There is no significant midline shift or herniation. The [place] vascular structures show no gross abnormality as visualized. The pituitary gland, sella, and suprasellar regions are unremarkable as visualized. There is no evidence of hydrocephalus. The basal cisterns are unremarkable. The skull, extracranial soft tissue, and orbits are unremarkable. The paranasal sinuses are unremarkable. Temporal bones show no significant abnormality. IMPRESSION: 1: There is no acute intracranial process. 2: Unremarkable MRI of the brain for age, with slight progression of age-related brain parenchymal changes. Dictated by: Dictated on workstation # [id number]
== END ==
LOC: RAD 09:31
PROVIDERS: ATTEND Student in an Organized Health Care Education/Training Program
DX: R27.0 Ataxia, unspecified (principal); R25.3 Fasciculation; R20.0 Anesthesia of skin; R25.1 Tremor, unspecified; R51 Headache; G89.4 Chronic pain syndrome; Z85.118 Personal history of other malignant neoplasm of bronchus and lung
CPT/HCPCS: 70553

== ENCOUNTER → 2018-05-13 | Outpatient (CLI) | payer MEDICARE, MEDICAID ==
[~2018-05-13] MED LIST changes: -GADOBUTROL 10 MMOL/10 ML (GADAVIST) VIAL IV ONE
--- NOTE | 2018-05-13 11:43 | Diagnostic Imaging Report ---
PROCEDURE: US Non-ob pelvis comp/trans. TECHNIQUE: Multiple realtime grayscale images were obtained of the pelvis in various projections endovaginally. Transabdominal imaging was also performed. INDICATION: Postmenopausal bleeding. FINDINGS: The uterus measures 6.9 x 4.4 x 3.5 cm. Endometrium is 3 mm in thickness. There is a posterior fibroid measuring 2.7 x 2.7 x 2.8 cm. Ovaries were not visualized. No adnexal mass or free fluid is seen. IMPRESSION: Uterine fibroid. No other significant abnormality is identified. Dictated by: Dictated on workstation # [id number]
== END ==
LOC: RAD 10:06
PROVIDERS: ATTEND Obstetrics & Gynecology
DX: D25.9 Leiomyoma of uterus, unspecified (principal); N95.0 Postmenopausal bleeding
CPT/HCPCS: 76830; 76856

== ENCOUNTER → 2018-05-26 | Emergency (ER) | payer MEDICARE, MEDICAID ==
[~2018-05-26] VITALS: Ht 167.6 cm; Wt 81.6 kg
[~2018-05-26] MED LIST changes: +KETOROLAC 30 MG/ML VIAL IVP ONE; +RT-ALBUTEROL/IPRATROPIUM 3 ML (DUONEB) VIAL INH ONE
--- OUTSIDE RECORDS SUMMARY | 2018-05-26 14:45 | XMS REPORT ---
Author Author CLARE VARNER Organization [facility] Address [address] [place] [address] Care Team Providers Care Assistant Community Director Name Role Phone CLARE VARNER Unavailable PROBLEMS Type Condition ICD9-CM Code [id number] Code Onset Dates Condition Status SNOMED Code Problem Generalized anxiety disorder 300.02 Active 62972893 Problem Depressive disorder, not elsewhere classified 311 Active 01192763 ALLERGIES No Known Allergies ENCOUNTERS Encounter Location Date Diagnosis [facility] [address] [id number] Nov, Dental examination Z01.20 [facility] [address] [address] Oct, Dysuria R30.0 and Acute cystitis without hematuria N30.00 [facility] [address] [id number] Sep, Dental examination Z01.20 [facility] [address] [id number] Aug, Dental examination Z01.20 [facility] [address] [address] Apr, Nausea R11.0 [facility] [address] [address] Apr, [facility] [address] [address] Sep, [facility] [address] [address] Sep, Diarrhea R19.7 and Dehydration E86.0 [facility] [address] [address] Sep, Diarrhea R19.7 and Dehydration E86.0 [place] [address] [address] Jul, Sinusitis J32.9 [place] [address] [address] Sep, [place] [address] [place] [id number] [place] [address] Sep, [place] [address] [place] [id number] [place] [phone] Jul, [place] [address] [place] [id number] [place] [address] Apr, [place] [address] [address] Feb, IMMUNIZATIONS No Known Immunizations SOCIAL HISTORY Never Assessed REASON FOR VISIT kidney infection [facility] [place] PLAN OF CARE Activity Details Follow Up F/U with usual physicians Reason: VITAL SIGNS Height 65 in 2017-10-28 Weight 208 lbs 2017-10-28 Temperature 97.7 degrees Fahrenheit 2017-10-28 Heart Rate 90 bpm 2017-10-28 Respiratory Rate 20 2017-10-28 Oximetry on room air:97 % 2017-10-28 BMI 34.61 kg/m2 2017-10-28 Blood pressure systolic 120 mmHg 2017-10-28 Blood pressure diastolic 80 mmHg 2017-10-28 MEDICATIONS Medication Instructions Dosage Frequency Start Date End Date Duration Status Fexofenadine HCl 180 MG Orally Once a day 1 tablet as needed 24h Active Bactrim DS 800-160 MG Orally Twice a day 1 tablet 12h Oct,Oct 07 days Active Spiriva Respimat 2.5 MCG/ACT Inhalation Once a day 2 puffs 24h Active Nystatin 017606 UNIT/ML Mouth/Throat Four times a day 4 ml 6h Active Eliquis 2.5 MG Orally 2 times a day 12h Active Carafate 1 GM/10ML Orally Twice a day 10 ml at bedtime on an empty stomach before meals 12h Active Ventolin HFA 108 (90 Base) MCG/ACT Inhalation every 4 hrs 2 puffs as needed 4h Active Provera 5 MG Orally Once a day 1 tablet 24h Active Hydrocodone-Acetaminophen 10-325 MG Orally every 6 hrs 1 tablet as needed 6h Active Valium 5 MG Orally Twice a day 1 tablet as needed 12h Active Singulair 10 MG Orally Once a day 1 tablet in the evening 24h Active Pravastatin Sodium 40 MG Orally Once a day 1 tablet 24h Active Flonase Allergy Relief 50 MCG/ACT Nasally Once a day 1 spray in each nostril 24h Active Cymbalta 30 MG Orally Once a day 1 capsule 24h Active Ipratropium-Albuterol 0.5-2.5 (3) MG/3ML Inhalation every 6 hrs 3 ml 6h Active Estradiol 0.5 MG Orally Once a day 1 tablet 24h Active Dulera 200-5 MCG/ACT Inhalation Twice a day 2 puffs 12h Active Pantoprazole Sodium 40 MG Orally Once a day 1 tablet 24h Active RESULTS Name Result Date Reference Range UA LONG DIP (IN HOUSE) 2017-10-28 Lot # [id number] Exp date 05/2018 Clarity clear Color orange Odor none GLU negative PATY negative KET negative SG >=1.030 BLO 3+ pH 5.5 Protein negative URO 0.2 NIT positive JUNE trace Lot # Exp date PROCEDURES Procedure Date Ordered Result Body Site URINALYSIS, AUTO, W/O SCOPE October 28, 2017 PENDING SALE TO [facility] VISIT ESTABLISHED PATIENT October 28, 2017 INSTRUCTIONS MEDICATIONS ADMINISTERED No Known Medications MEDICAL (GENERAL) HISTORY Type Description Date Medical History H/O: lung cancer Medical History COPD Medical History Pnemonia Medical History Prednisone Medical History Radiation or Chemotherapy Medical History Blood Thinners Medical History Back Trouble Surgical History C Spine Fusion Surgical History Tonsils Surgical History Tubal Ligation Surgical History Pnemonia Hospitalization History Surgeries Hospitalization History Pneumonia 06/2017 Hospitalization History Pneumonia 07/2017 Hospitalization History COPD 08/2017
--- OUTSIDE RECORDS SUMMARY | 2018-05-26 14:45 | XMS REPORT ---
Author Author RADHA NICHOLSON [facility] Address [address] [place] [address] Phone Unavailable Care Team Providers Care Qa Lead Name Role Phone RADAH NICHOLSON Unavailable Unavailable PROBLEMS Type Condition ICD9-CM Code [id number] Code Onset Dates Condition Status SNOMED Code Problem Generalized anxiety disorder 300.02 Active 02536508 Problem Depressive disorder, not elsewhere classified 311 Active 98968164 ALLERGIES No Known Allergies ENCOUNTERS Encounter Location Date Diagnosis [facility] [address] [id number] Nov, Dental examination Z01.20 [facility] [address] [address] Oct, Dysuria R30.0 and Acute cystitis without hematuria N30.00 [facility] [address] [place] [id number] [place] [id number] Sep, Dental examination Z01.20 [facility] [address] [id number] Aug, Dental examination Z01.20 [facility] [address] [place] [id number] [place] [address] Apr, Nausea R11.0 [facility] [address] [address] Apr, [facility] [address] [address] Sep, [facility] [address] [address] Sep, Diarrhea R19.7 and Dehydration E86.0 [facility] [address] [address] Sep, Diarrhea R19.7 and Dehydration E86.0 [place] [address], [place] [address] Jul, Sinusitis J32.9 [place] [address], [place] [address] Sep, [place] [address], [place] [address] Sep, [place] [address], [place] [address] Jul, [place] [address], [place] [address] Apr, [place] [address], [place] [address] Feb, IMMUNIZATIONS No Known Immunizations SOCIAL HISTORY Never Assessed REASON FOR VISIT est dental care PLAN OF CARE Activity Details Follow Up 6 Months Reason:recall VITAL SIGNS Blood pressure systolic 112 mmHg 2017-12-13 Blood pressure diastolic 63 mmHg 2017-12-13 MEDICATIONS Medication Instructions Dosage Frequency Start Date End Date Duration Status Dulera 200-5 MCG/ACT Inhalation Twice a day 2 puffs 12h Active Hydrocodone-Acetaminophen 10-325 MG Orally every 6 hrs 1 tablet as needed 6h Active Daliresp Active Carafate 1 GM/10ML Orally Twice a day 10 ml at bedtime on an empty stomach before meals 12h Active Valium 5 MG Orally Twice a day 1 tablet as needed 12h Active Pravastatin Sodium 40 MG Orally Once a day 1 tablet 24h Active Incruse Ellipta Active Pantoprazole Sodium 40 MG Orally Once a day 1 tablet 24h Active Provera 5 MG Orally Once a day 1 tablet 24h Not-Taking Singulair 10 MG Orally Once a day 1 tablet in the evening 24h Active Estradiol 0.5 MG Orally Once a day 1 tablet 24h Not-Taking Gabapentin Active Nystatin 301861 UNIT/ML Mouth/Throat Four times a day 4 ml 6h Active Cartia XT Active Flonase Allergy Relief 50 MCG/ACT Nasally Once a day 1 spray in each nostril 24h Active Cymbalta 30 MG Orally Once a day 1 capsule 24h Not-Taking Fexofenadine HCl 180 MG Orally Once a day 1 tablet as needed 24h Active Ipratropium-Albuterol 0.5-2.5 (3) MG/3ML Inhalation every 6 hrs 3 ml 6h Active Azithromycin Active Eliquis 2.5 MG Orally 2 times a day 12h Active Ventolin HFA 108 (90 Base) MCG/ACT Inhalation every 4 hrs 2 puffs as needed 4h Active Spiriva Respimat 2.5 MCG/ACT Inhalation Once a day 2 puffs 24h Not -Taking RESULTS No Results PROCEDURES Procedure Date Ordered Result Body Site COMP ORAL EVALUATION - NEW/EST PT December 13, 2017 INTRAORL-PERIAPICAL 1 FILM [id number] December 13, 2017 INTRAORL-PERIAPICAL EA ADD FILM December 13, 2017 INTRAORL-PERIAPICAL EA ADD FILM December 13, 2017 PROPHYLAXIS - ADULT December 13, 2017 BITEWINGS - FOUR FILMS December 13, 2017 INSTRUCTIONS MEDICATIONS ADMINISTERED No Known Medications [...]
--- OUTSIDE RECORDS SUMMARY | 2018-05-26 14:45 | XMS REPORT ---
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 Name Role Phone MARK SHARIF Unavailable PROBLEMS Type Condition ICD9-CM Code [id number]-AG Code Onset Dates Condition Status SNOMED Code Problem Generalized anxiety disorder 300.02 Active 48754047 Problem Depressive disorder, not elsewhere classified 311 Active [id number] ALLERGIES No Known Allergies ENCOUNTERS Encounter Location Date Diagnosis [facility] [address] [id number] Nov, Dental examination Z01.20 [facility] [address] [address] Oct, Dysuria R30.0 and Acute cystitis without hematuria N30.00 [facility] [id number] [place] [id number] Sep, Dental examination Z01.20 [facility] [address] [id number] Aug, Dental examination Z01.20 [facility] [address] [address] Apr, Nausea R11.0 [facility] [id number] [place] [phone] Apr, [facility] [address] [address] Sep, [facility] [address] [address] Sep, Diarrhea R19.7 and Dehydration E86.0 [facility] [address] [place] [address] Sep, Diarrhea R19.7 and Dehydration E86.0 [place] [id number] [place] [address] Jul, Sinusitis J32.9 [place] [id number] [place] [address] Sep, [place] [id number] [place] [phone] Sep, [place] [id number] [place] [phone] Jul, [place] [id number] [place] [address] Apr, [place] [id number] [place] [address] Feb, IMMUNIZATIONS No Known Immunizations SOCIAL HISTORY Never Assessed REASON FOR VISIT FILLING 45 MIN PER DDS PLAN OF CARE Activity Details Follow Up prn Reason:hygiene VITAL SIGNS Blood pressure systolic 118 mmHg 2017-10-07 Blood pressure diastolic 80 mmHg 2017-10-07 MEDICATIONS Medication Instructions Dosage Frequency Start Date End Date Duration Status Prevacid Active Singulair 10 MG Orally Once a day 1 tablet in the evening 24h Active Chantix 1 MG Orally Twice a day 1 tablet 12h Active Estradiol 0.5 MG Orally Once a day 1 tablet 24h Active Provera 5 MG Orally Once a day 1 tablet 24h Active Sotalol HCl 80 MG Orally every 12 hrs 1 tablet 12h Not-Taking Valium 5 MG Orally Twice a day 1 tablet as needed 12h Active Prozac 20 MG Orally Once a day 1 capsule in the morning 24h Not- Taking Diphenoxylate-Atropine 2.5-0.025 MG Orally Four times a day 2 6h Sep, Not-Taking Cartia XT Active Zyrtec Allergy 10 MG Not-Taking Zantac 150 MG Orally Twice a day 1 tablet 12h Not-Taking Ventolin HFA 108 (90 Base) MCG/ACT Inhalation every 4 hrs 2 puffs as needed 4h Active Anoro Ellipta 62.5-25 MCG/INH Inhalation Once a day 1 puff 24h Not -Taking Norma Active Zofran ODT 4 MG Orally every 4 hrs 1 tablet on the tongue and allow to dissolve 4h Sep, Active Pulmicort Flexhaler 180 MCG/ACT Inhalation Twice a day 1 puff 12h Not-Taking Hydrocodone-Acetaminophen 7.5-325 MG Orally every 6 hrs 1 tablet as needed 6h Active Eliquis 2.5 MG Orally 2 times a day 12h Active Zofran ODT 4 MG Orally every 8 hrs 1 tablet on the tongue and allow to dissolve 8h Apr, 30 day(s) Not-Taking RESULTS No Results PROCEDURES Procedure Date Ordered Result Body Site RSN COMPOS-4/> SURF/W/INCISAL ANG Oct 07, 2017 RSN COMPOS-4/> SURF/W/INCISAL ANG Oct 07, 2017 Billing Notes on claim Oct 07, 2017 INSTRUCTIONS MEDICATIONS ADMINISTERED No Known Medications [...]
--- OUTSIDE RECORDS SUMMARY | 2018-05-26 14:50 | XMS REPORT | Continuity of Care Document ---
Author Author [facility] Address Unknown Phone Unavailable Allergies Active Description Code Type Severity Reaction Onset Reported/Identified Relationship to Patient Clinical Status Yes NO KNOWN DRUG ALLERGIES NO KNOWN DRUG ALLERG UNKNOWN Yes NO KNOWN DRUG ALLERGIES UNKNOWN NO KNOWN DRUG ALLERG Yes No Known Drug Allergies [id number] Drug Allergy Unknown N/A 07/24/2017 Medications Medication Packaging Start Date Stop Date Route Dosage Sig GUAIFENESIN/CODEINE LIQ (ROBITUSSIN AC) ml 08/20/2016 08/20/2016 PRN ONCE POTASSIUM CHLORIDE TAB 20 MEQ (K-DUR) MEQ 08/20/2016 08/20/2016 ONCE&1526 IPRATROPIUM/ALBUTEROL INH SOLN INH 0 (DUO-NEB INH SOLN) MLS 08/20/2016 08/27/2016 QID&0600,1100,1600,2100 POTASSIUM CHLORIDE TAB 20 MEQ (K-DUR) MEQ 08/20/2016 08/27/2016 BID&0800,2000 LEVOFLOXACIN PREMIX IV BAG INJ 750 MG (LEVAQUIN PREMIX IV BAG) MG 06/21/2017 06/21/2017 ONCE&1640 METHYLPREDNISOLONE VIAL INJ 125 MG/2CC (SOLU-MEDROL VIAL) MG 06/21/2017 06/21/2017 ONCE&1640 LEVOFLOXACIN PREMIX IV BAG INJ 750 MG (LEVAQUIN PREMIX IV BAG) MG 06/23/2017 06/23/2017 Daily&1500 LEVOFLOXACIN PREMIX IV BAG INJ 750 MG (LEVAQUIN PREMIX IV BAG) MG 06/24/2017 06/24/2017 ONCE&1839 LEVOFLOXACIN PREMIX IV BAG INJ 750 MG (LEVAQUIN PREMIX IV BAG) MG 06/25/2017 07/01/2017 Daily&0900 LEVOFLOXACIN PREMIX IV BAG INJ 750 MG (LEVAQUIN PREMIX IV BAG) MG 06/25/2017 06/25/2017 ONCE&1550 LEVOFLOXACIN PREMIX IV BAG INJ 750 MG (LEVAQUIN PREMIX IV BAG) MG 06/26/2017 06/26/2017 ONCE&2045 LEVOFLOXACIN PREMIX IV BAG INJ 750 MG (LEVAQUIN PREMIX IV BAG) MG 06/27/2017 07/03/2017 Daily&0900 IPRATROPIUM/ALBUTEROL INH SOLN (DUO-NEB INH SOLN) MLS 09/16/2017 09/16/2017 ONCE&1751 POTASSIUM CHLORIDE TAB 20 MEQ (K-DUR) MEQ 09/16/2017 09/16/2017 ONCE&1848 LEVALBUTEROL LIQ 1.25 MG/3ML (XOPENEX) MG 09/20/2017 09/20/2017 ONCE&1215 METHYLPREDNISOLONE VIAL INJ 125 MG/2CC (SOLU-MEDROL VIAL) MG 09/20/2017 09/20/2017 ONCE&1215 TIZANIDINE TAB 4 MG (ZANAFLEX) Dose(s) 09/20/2017 09/27/2017 PRN Q4H HYDROCODONE/APAP 7.5/325 TAB 0 (ALFIE-TAB 7.5/325) Dose(s) 09/20/2017 09/30/2017 TID&0800,1400,2000 NORMAL SALINE 1000CC IV BAG INJ 0.9 % (NS 1000CC IV BAG) ml 09/20/2017 10/05/2017 CONTINUOUSEVERY 0 Hour LEVALBUTEROL LIQ 1.25 MG/3ML (XOPENEX) MG 09/20/2017 09/27/2017 QID&0600,1100,1600,2100 GUAIFENESIN TAB 600 MG (MUCINEX) MG 09/20/2017 09/27/2017 Q12H&0600,1800 DIAZEPAM TAB 5 MG (VALIUM) Dose(s) 09/20/2017 09/27/2017 PRN Q6H BENZONATATE CAP 100 MG (TESSALON) MG 09/20/2017 09/27/2017 PRN Q6H PROMETHAZINE VIAL INJ 25 MG/CC (PHENERGAN VIAL) MG 09/20/2017 09/20/2017 PRN ONCE CEFUROXIME TAB 250 MG (CEFTIN) MG 09/20/2017 09/30/2017 BID&0800,2000 SOTALOL TAB 80 MG (BETAPACE) Dose(s) 09/20/2017 09/27/2017 BID&0800,2000 BUDESONIDE INHALATION SUSP AMP 0.5 MG/2CC (PULMICORT) Dose(s) 09/20/2017 09/27/2017 BID&08,1999 APIXABAN TAB 5 MG (ELIQUIS) Dose(s) 09/20/2017 09/27/2017 BID&08,1999 METHYLPREDNISOLONE VIAL INJ 125 MG/2CC (SOLU-MEDROL VIAL) MG 09/20/2017 09/25/2017 Q6H&0600,1200,1800,2359 MORPHINE SYRINGE INJ 2 MG/CC MG 09/28/2017 PRN Q4H LEVALBUTEROL LIQ 1.25 MG/3ML (XOPENEX) MG 09/21/2017 09/28/2017 PRN Q2H IPRATROPIUM/ALBUTEROL INH SOLN (DUO-NEB INH SOLN) MLS 09/21/2017 09/27/2017 QID&0600,1100,1600,2100 LEVALBUTEROL CONCENTRATE SOLN 1.25 MG/0.5CC (XOPENEX CONCENTRATE) MG 09/21/2017 10/01/2017 PRN Q2H HYDROCODONE/APAP 7.5/325 TAB (ALFIE-TAB 7.5/325) TAB 09/21/2017 10/01/2017 PRN TID AZITHROMYCIN TAB 250 MG (ZITHROMAX) MG 09/21/2017 10/20/2017 Daily&0900 Diltiazem 240mg XR cap (CARDIZEM) MG 09/21/2017 10/20/2017 Daily&0900 FLUTICASONE NASAL INHALER MDI 50 MCG (FLONASE NOSE SPRAY) Dose(s) 09/21/2017 09/27/2017 Daily&0900 MEDROXYPROGESTERONE TAB 2.5 MG (PROVERA) Dose( s) 09/21/2017 09/25/2017 Daily&0900 PANTOPRAZOLE TAB 40 MG (PROTONIX) Dose(s) 09/21/2017 09/27/2017 Daily&0900 CETIRIZINE TAB 10 MG (ZYRTEC) Dose(s) 09/21/2017 09/27/2017 Daily&0900 FLUOXETINE CAP 20 MG (PROZAC) Dose(s) 09/21/2017 09/27/2017 Daily&0900 MONTELUKAST TAB 10 MG (SINGULAIR) Dose(s) 09/21/2017 09/27/2017 Daily&0900 PREDNISONE TAB 20 MG (DELTASONE) MG 09/21/2017 09/27/2017 Daily&0900 OSELTAMIVIR CAP 75 MG (TAMIFLU) Dose(s) 09/21/2017 09/25/2017 Daily&0900 ACETYLCYSTEINE 20% RT LIQ 20 % (MUCOMYST 20% RT) cc 09/21/2017 10/01/2017 Q6H&0600,1200,1800,2359 PANTOPRAZOLE TAB 40 MG (PROTONIX) Dose(s) 09/21/2017 09/27/2017 QPM&2000 ACETAMINOPHEN ORAL TABLET 325mg(Tylenol) MG 09/21/2017 10/01/2017 PRN EVERY 4 Hour TETANUS,DIPTH,PERT ADULT INJ 0 (ADACEL SYRINGE) ml 02/27/2018 02/27/2018 ONCE&1241 NORMAL SALINE 500CC IV BAG INJ 0.9 % (NS 500CC IV BAG) ml 04/20/2018 04/20/2018 ONCE&1727 KETOROLAC VIAL INJ 15 MG/CC (TORADOL VIAL) MG 04/20/2018 04/20/2018 ONCE&1728 ORPHENADRINE INJ 60 MG/2CC (NORFLEX) MG 04/20/2018 04/20/2018 ONCE&1728 NORMAL SALINE 500CC IV BAG INJ 0.9 % (NS 500CC IV BAG) ml 04/20/2018 04/20/2018 ONCE&1831 CEFTRIAXONE PREMIX IV BAG IV 1 GM/50CC (ROCEPHIN PREMIX IV BAG) GM 04/20/2018 04/20/2018 ONCE&1831 Problems Date Dx Coded Attending Type Code [...] 03/19/2010 Ot 786.09 03/19/2010 Ot 786.50 05/26/2010 YURIY ACHARYA LCPC 110.1 ONYCHOMYCOSIS 05/26/2010 YURIY ACHARYA LCPC 356.9 NEUROPATHY 05/26/2010 YURIY ACHARYA LCPC 735.4 HAMMER TOE (ACQUIRED) 06/02/2010 Ot 569.0 06/02/2010 Ot V10.11 07/12/2010 Ot 305.1 07/12/2010 Ot 721.0 07/12/2010 Ot 721.3 07/12/2010 Ot V10.11 07/12/2010 Ot V58.69 07/12/2010 Ot V67.1 07/12/2010 Ot V67.2 10/12/2013 YURIY ACHARYA LCPC 300.02 AN GEN ANXIETY 10/12/2013 YURIY ACHARYA LCPC 311 DEPRESSIVE DISORDER NOS 10/04/2014 Ot 397.0 [...] 10/04/2014 Ot V67.2 10/20/2014 OSIRIS SUMMERS, MUKESH A Ot 723.1 10/20/2014 OSIRIS SUMMERS, ADYYLON A Ot V45.4 10/20/2014 OSIRIS SUMMERS, ADYYLON A Ot V57.1 10/21/2014 OSIRIS SUMMERS, ADYYLON A Ot 723.1 10/21/2014 OSIRIS SUMMERS, CHERYLON A Ot V45.4 10/21/2014 OSIRIS SUMMERS, CHERYLON A Ot V57.1 11/23/2014 OSIRIS SUMMERS, CHERYLON A Ot 723.1 11/23/2014 OSIRIS SUMMERS, CHERYLON A Ot V45.4 11/23/2014 OSIRIS SUMMERS, CHERYLON A Ot V57.1 11/23/2014 OSIRIS SUMMERS, AYDYLON A Ot 723.1 11/23/2014 OSIRIS SUMMERS, ADYYLON A Ot V45.4 11/23/2014 OSIRIS SUMMERS, CHERYLON A Ot V57.1 11/24/2014 OSIRIS SUMMERS, CHERYLON A Ot 723.1 11/24/2014 OSIRIS SUMMERS, CHERYLON A Ot V45.4 11/24/2014 OSIRIS SUMMERS, ADYYLON A Ot V57.1 11/24/2014 OSIRIS SUMMERS, ADYYLON A Ot 723.1 11/24/2014 OSIRIS SUMMERS, ADYYLON A Ot V45.4 11/24/2014 OSIRIS SUMMERS, ADYYLON A Ot V57.1 11/25/2014 OSIRIS SUMMERS, CHERYLON A Ot 723.1 CERVICALGIA 11/25/2014 MUKESH NEWELL MD Ot V45.4 ARTHRODESIS STATUS 11/25/2014 MUKESH NEWELL MD Ot V57.1 PHYSICAL THERAPY NEC 04/04/2015 SUSIE ANDIE Gary Ot 780.54 HYPERSOMNIA, UNSPECIFIED 04/04/2015 SUSIE ANDIE Gary Ot 786.09 RESPIRATORY ABNORM NEC 04/14/2015 SUSIE ANDIE Gary Ot 162.9 04/14/2015 SUSIE LEARY ANDIE Gary Ot 305.1 04/14/2015 ANDIE RICHARDS DO Ot 496 05/03/2015 SUSIE LEARY ANDIE Vega Ot 162.9 05/03/2015 SUSIE LEARY ANDIE Vega Ot 305.1 05/03/2015 ANDIE RICHARDS DO Ot 496 05/09/2015 SUSIE LEARY ANDIE M Ot 162.9 05/09/2015 ANDIE RICHARDS DO Ot [...] 05/23/2015 Ot V67.1 05/23/2015 Ot V67.2 05/23/2015 ANDIE RICHARDS DO Ot 162.9 05/23/2015 ANDIE RICHARDS DO Ot 305.1 05/23/2015 ANDIE RICHARDS DO Ot 496 06/16/2015 HELLER , ABE L Ot 246.9 06/16/2015 HELLER DO, ABE L Ot 272.4 06/21/2015 HELLER DO, ABE L Ot 246.9 06/21/2015 HELLER DO, ABE L Ot 272.4 06/27/2015 PINA LEARY, ABE L Ot E78.5 06/28/2015 PINA LEARY, ABE L Ot E78.5 07/13/2015 VIVIAN BARRERA APRN Ot F17.210 NICOTINE DEPENDENCE, CIGARETTES, UNCOMPL 07/13/2015 VIVIAN BARRERA APRN Ot J40 BRONCHITIS, NOT SPECIFIED ACUTE OR CH 07/13/2015 VIVIAN BARRERA APRN Ot J44.9 CHRONIC OBSTRUCTIVE PULMONARY DISEASE, U 07/13/2015 VIVIAN BARRERA APRN Ot R09.81 NASAL CONGESTION 07/13/2015 VIVIAN BARRERA APRN Ot R91.8 OTHER NONSPECIFIC ABNORMAL FINDING OF MARCELO 07/13/2015 VIVIAN BARRERA APRN Ot Z85.118 PERSONAL HISTORY OF MALIGNANT NEOPLASM O 07/13/2015 VIVIAN BARRERA APRN Ot 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] 08/03/2015 ALESSANDRO MARTINEZ DO Ot M47.812 08/03/2015 ALESSANDRO MARTINEZ DO Ot M50.20 08/09/2015 MARTINEZ ALESSANDRO LEARY P Ot M47.812 08/09/2015 MARTINEZ ALESSANDRO LEARY P Ot M50.20 09/29/2015 Ot 162.9 09/29/2015 Ot 729.5 09/29/2015 Ot 599.70 09/29/2015 Ot 305.1 09/29/2015 Ot 721.0 09/29/2015 Ot 721.3 09/29/2015 Ot V10.11 09/29/2015 Ot V58.69 09/29/2015 Ot V67.1 09/29/2015 Ot V67.2 09/29/2015 ANDIE RICHARDS DO Ot 162.9 09/29/2015 ANDIE RICHARDS DO Ot 305.1 09/29/2015 ANDIE RICHARDS DO Ot 496 09/29/2015 PINA LEARY, ABE L Ot 246.9 09/29/2015 PINA LEARY, ABE L Ot 272.4 09/29/2015 PINA DO, ABE L Ot E78.5 09/29/2015 JUAN DOALESSANDRO P Ot M47.812 09/29/2015 JUAN DOALESSANDRO P Ot M50.20 10/05/2015 NEHA ROSENBERG WATCH TECHNICIAN Ot C34.90 10/05/2015 NEHA ROSENBERG WATCH TECHNICIAN Ot F17.210 10/05/2015 NEHA ROSENBERG WATCH TECHNICIAN Ot J44.9 10/05/2015 NEHA ROSENBERG WATCH TECHNICIAN Ot R91.1 10/13/2015 SAAD SUMMERS, NA Teresa Ot K52.1 TOXIC GASTROENTERITIS AND COLITIS 10/13/2015 SAAD SUMMERS, NA Teresa Ot T36.95XA ADVERSE EFFECT OF UNSP SYSTEMIC ANTIBIOT 10/20/2015 NEHA ROSENBERG WATCH TECHNICIAN Ot C34.90 10/20/2015 NEHA ROSENBERG WATCH TECHNICIAN Ot F17.210 10/20/2015 NEHA ROSENBERG WATCH TECHNICIAN Ot J44.9 10/20/2015 NEHA ROSENBERG WATCH TECHNICIAN Ot R91.1 10/21/2015 BAIMA, CONNIE L SAVINGS COUNSELOR Ot I48.0 10/21/2015 BAIMA, CONNIE L SAVINGS COUNSELOR Ot J44.9 10/21/2015 BAIMA, CONNIE L SAVINGS COUNSELOR Ot R06.09 10/21/2015 BAIMA, CONNIE L SAVINGS COUNSELOR Ot R07.9 10/21/2015 BAIMA, CONNIE L SAVINGS COUNSELOR Ot I48.0 10/21/2015 BAIMA, CONNIE L SAVINGS COUNSELOR Ot J44.9 10/21/2015 BAIMA, CONNIE L SAVINGS COUNSELOR Ot R06.09 10/21/2015 BAIMA, CONNIE L SAVINGS COUNSELOR Ot R07.9 10/26/2015 NEHA ROSENBERG WATCH TECHNICIAN Ot C34.90 10/26/2015 NEHA ROSENBERG WATCH TECHNICIAN Ot F17.210 10/26/2015 NEHA ROSENBERG WATCH TECHNICIAN Ot J44.9 10/26/2015 NEHA ROSENBERG WATCH TECHNICIAN Ot R91.1 11/10/2015 FRANCESCA SUMMERS, PARAM Vega Ot Z01.818 ENCOUNTER FOR OTHER PREPROCEDURAL EXAMIN 11/11/2015 FRANCESCA SUMMERS, PARAM M Ot Z01.818 11/14/2015 FRANCESCA SUMMERS, PARAM M Ot K22.2 ESOPHAGEAL OBSTRUCTION 11/14/2015 FRANCESCA SUMMERS, PARAM M Ot K25.9 GASTRIC ULCER, UNSP ACUTE OR CHRONIC, 11/14/2015 FRANCESCA SUMMERS, PARAM M Ot R19.7 DIARRHEA, UNSPECIFIED 11/15/2015 FRANCSECA SUMMERS, PARAM M Ot K22.2 11/15/2015 FRANCESCA SUMMERS, PARAM M Ot K25.9 11/15/2015 FRANCESCA SUMMERS, PARAM M Ot R19.7 11/15/2015 FRANCESCA SUMMERS, PARAM M Ot K22.2 11/15/2015 FRANCESCA SUMMERS, PARAM M Ot K25.9 11/15/2015 FRANCESCA SUMMERS, PARAM M Ot R19.7 03/23/2016 WILBERTO SUMMERS FACC, ALI FACP CCDS Ot C34.90 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 03/23/2016 WILBERTO SUMMERS FACC, ALI FACP CCDS Ot I48.0 PAROXYSMAL ATRIAL FIBRILLATION 03/23/2016 WILBERTO SUMMERS FACC, ALI FACP CCDS Ot J43.8 OTHER EMPHYSEMA 03/27/2016 WILBERTO SUMMERS FACC, ALI FACP CCDS Ot C34.90 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 03/27/2016 WILBERTO SUMMERS FACC, ALI FACP CCDS Ot I48.0 PAROXYSMAL ATRIAL FIBRILLATION 03/27/2016 WILBERTO SUMMERS FACC, ALI FACP CCDS Ot J43.8 OTHER EMPHYSEMA 03/28/2016 ANDIE [...] M47.812 SPONDYLOSIS W/O MYELOPATHY OR RADICULOPA 03/28/2016 MRATINEZ DO, ALESSANDRO P Ot M50.20 OTHER CERVICAL DISC DISPLACEMENT, UNSP C 03/28/2016 NEHA ROSENBERG WATCH TECHNICIAN Ot C34.90 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 03/28/2016 NEHA ROSENBERG WATCH TECHNICIAN Ot F17.210 NICOTINE DEPENDENCE, CIGARETTES, UNCOMPL 03/28/2016 NEHA ROSENBERG WATCH TECHNICIAN Ot J44.9 CHRONIC OBSTRUCTIVE PULMONARY DISEASE, U 03/28/2016 NEHA ROSENBERG WATCH TECHNICIAN Ot R91.1 SOLITARY PULMONARY NODULE 03/28/2016 HENRICONNIE SAVINGS COUNSELOR Ot I48.0 PAROXYSMAL ATRIAL FIBRILLATION 03/28/2016 HENRI CONNIE Raza SAVINGS COUNSELOR Ot J44.9 CHRONIC OBSTRUCTIVE PULMONARY DISEASE, U 03/28/2016 HENRICONNIE Luz Marina SAVINGS COUNSELOR Ot R06.09 OTHER FORMS OF DYSPNEA 03/28/2016 HENRI CONNIE Raza SAVINGS COUNSELOR Ot R07.9 CHEST PAIN, UNSPECIFIED 03/28/2016 WILBERTO SUMMERS FACC, ALI FACP CCDS Ot C34.90 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 03/28/2016 WILBERTO SUMMERS FACC, ALI FACP CCDS Ot I48.0 PAROXYSMAL ATRIAL FIBRILLATION 03/28/2016 WILBERTO SUMMERS FACC, ALI FACP CCDS Ot J43.8 OTHER EMPHYSEMA 03/28/2016 VIVIAN BARRERA APRN Ot 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 03/28/2016 VIVIAN BARRERA APRN Ot F17.210 NICOTINE DEPENDENCE, CIGARETTES, UNCOMPL 03/28/2016 VIVIAN BARRERA APRN Ot J44.9 CHRONIC OBSTRUCTIVE PULMONARY DISEASE, U 03/28/2016 VIVIAN BARRERA APRN Ot M47.812 SPONDYLOSIS W/O MYELOPATHY OR RADICULOPA 03/28/2016 VIVIAN BARRERA APRN Ot M51.36 OTHER INTERVERTEBRAL DISC DEGENERATION, 03/28/2016 VIVIAN BARRERA APRN Ot R07.89 OTHER CHEST PAIN 03/28/2016 VIVIAN BARRERA APRN Ot R07.9 CHEST PAIN, UNSPECIFIED 03/28/2016 VIVIAN BARRERA APRN Ot Z98.1 ARTHRODESIS STATUS 03/29/2016 VIVIAN BARRERA APRN Ot 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 03/29/2016 VIVIAN BARRERA APRN Ot F17.210 NICOTINE DEPENDENCE, CIGARETTES, UNCOMPL 03/29/2016 VIVIAN BARRERA WATCH TECHNICIAN Ot J44.9 CHRONIC OBSTRUCTIVE PULMONARY DISEASE, U 03/29/2016 VIVIAN BARRERA WATCH TECHNICIAN Ot M47.812 SPONDYLOSIS W/O MYELOPATHY OR RADICULOPA 03/29/2016 VIVIAN BARRERA WATCH TECHNICIAN Ot M51.36 OTHER INTERVERTEBRAL DISC DEGENERATION, 03/29/2016 VIVIAN BARRERA WATCH TECHNICIAN Ot R07.89 OTHER CHEST PAIN 03/29/2016 VIVIAN BARRERA WATCH TECHNICIAN Ot R07.9 CHEST PAIN, UNSPECIFIED 03/29/2016 VIVIAN BARRERA WATCH TECHNICIAN Ot Z98.1 ARTHRODESIS STATUS 04/16/2016 WILBERTO SUMMERS FACC, ALI FACP CCDS Ot C34.90 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 04/16/2016 WILBERTO SUMMERS FACC, ALI FACP CCDS Ot I48.0 PAROXYSMAL ATRIAL FIBRILLATION 04/16/2016 WILBERTO SUMMERS FACC, ALI FACP CCDS Ot J43.8 OTHER EMPHYSEMA 04/17/2016 WILBERTO SUMMERS FACC, ALI FACP CCDS Ot C34.90 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 04/17/2016 WILBERTO SUMMERS FACC, ALI FACP CCDS Ot I48.0 PAROXYSMAL ATRIAL FIBRILLATION 04/17/2016 WILBERTO SUMMERS FACC, ALI FACP CCDS Ot J43.8 OTHER EMPHYSEMA 04/26/2016 WILBERTO SUMMERS FACC, ALI FACP CCDS Ot I48.0 PAROXYSMAL ATRIAL FIBRILLATION 04/26/2016 WILBERTO SUMMERS FACC, ALI FACP CCDS Ot J43.8 OTHER EMPHYSEMA 04/26/2016 WILBERTO SUMMERS FACC, ALI FACP CCDS Ot [...] UNSP PART OF UNSP 05/23/2016 WILBERTO SUMMERS [facility] CCDS Ot I48.0 PAROXYSMAL ATRIAL FIBRILLATION 05/23/2016 WILBERTO SUMMERS FAC, [facility] CCDS Ot J43.8 OTHER EMPHYSEMA 05/23/2016 WILBERTO SUMMERS FAC, [facility] CCDS Ot R00.2 PALPITATIONS 05/24/2016 ZAIN SUMMERS, KEM Ot C34.90 MALIGNANT NEOPLASM OF UNSP PART OF [facility] 05/24/2016 ZAIN SUMMERS, KEM Ot M89.8X0 OTHER SPECIFIED DISORDERS OF BONE, MULTI 05/29/2016 ZAIN SUMMERS, KEM Ot C34.90 MALIGNANT NEOPLASM OF UNSP PART OF [facility] 05/29/2016 ZAIN SUMMERS, KEM Ot M89.8X0 OTHER SPECIFIED DISORDERS OF BONE, [facility] 06/04/2016 ANDIE RICHARDS DO Ot 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 06/04/2016 ANDIE RICHARDS DO Ot 305.1 TOBACCO USE DISORDER 06/04/2016 ANDIE RICHARDS DO Ot 496 CHR AIRWAY OBSTRUCT NEC 06/04/2016 ABE HELLER DO Ot 246.9 DISORDER OF THYROID NOS 06/04/2016 ABE HELLER DO Ot 272.4 HYPERLIPIDEMIA NEC/NOS 06/04/2016 ABE HELLER DO Ot E78.5 HYPERLIPIDEMIA, UNSPECIFIED 06/04/2016 ALESSANDRO MARTINEZ DO Ot M47.812 SPONDYLOSIS W/O MYELOPATHY OR RADICULOPA 06/04/2016 ALESSANDRO MARTINEZ DO Ot M50.20 OTHER CERVICAL DISC DISPLACEMENT, [facility] C 06/04/2016 NEHA ROSENBERG APRN Ot C34.90 MALIGNANT NEOPLASM OF UNSP PART OF [facility] 06/04/2016 NEHA ROSENBERG APRN Ot F17.210 NICOTINE DEPENDENCE, CIGARETTES, UNCOMPL 06/04/2016 NEHA ROSENBERG APRN Ot J44.9 CHRONIC OBSTRUCTIVE PULMONARY DISEASE, U 06/04/2016 NEHA ROSENBERG APRN Ot R91.1 SOLITARY PULMONARY NODULE 06/04/2016 CONNIE ÁLVAREZ SAVINGS COUNSELOR Ot I48.0 PAROXYSMAL ATRIAL FIBRILLATION 06/04/2016 CONNIE ÁLVAREZ SAVINGS COUNSELOR Ot J44.9 CHRONIC OBSTRUCTIVE PULMONARY DISEASE, U 06/04/2016 CONNIE ÁLVAREZ SAVINGS COUNSELOR Ot R06.09 OTHER FORMS OF DYSPNEA 06/04/2016 CONNIE ÁLVAREZ SAVINGS COUNSELOR Ot R07.9 CHEST PAIN, UNSPECIFIED 06/04/2016 WILBERTO SUMMERS FACC, ALI FACP CCDS Ot C34.90 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 06/04/2016 WILBERTO SUMMERS FACC, ALI FACP CCDS Ot I48.0 PAROXYSMAL ATRIAL FIBRILLATION 06/04/2016 WILBERTO SUMMERS FACC, ALI FACP CCDS Ot J43.8 OTHER EMPHYSEMA 06/04/2016 ZAIN SUMMERS, KEM Ot C34.90 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 06/04/2016 ZAIN SUMMERS, KEM Ot M89.8X0 OTHER SPECIFIED DISORDERS OF BONE, MULTI 06/04/2016 WILBERTO SUMMERS FACC, ALI FACP CCDS Ot I48.0 PAROXYSMAL ATRIAL FIBRILLATION 06/04/2016 WILBERTO SUMMERS FACC, ALI FACP CCDS Ot J43.8 OTHER EMPHYSEMA 06/04/2016 WILBERTO SUMMERS FAC, ALI FACP CCDS Ot R00.2 PALPITATIONS 06/04/2016 MEENAKSHI SUMMERS, ATMAN U Ot C34.90 MALIGNANT NEOPLASM OF UNSP PART OF [facility] 06/05/2016 ANDIE RICHARDS DO Ot 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 06/05/2016 ANDIE RICHARDS DO Ot 305.1 TOBACCO USE DISORDER 06/05/2016 ANDIE RICHARDS DO Ot 496 CHR AIRWAY OBSTRUCT NEC 06/05/2016 ABE HELLER DO Ot 246.9 DISORDER OF THYROID NOS 06/05/2016 ABE HELLER DO Ot 272.4 HYPERLIPIDEMIA NEC/NOS 06/05/2016 ABE HELLER DO Ot E78.5 HYPERLIPIDEMIA, UNSPECIFIED 06/05/2016 ALESSANDRO MARTINEZ DO Ot M47.812 SPONDYLOSIS W/O MYELOPATHY OR RADICULOPA 06/05/2016 ALESSANDRO MARTINEZ DO Ot M50.20 OTHER CERVICAL DISC DISPLACEMENT, UNSP C 06/05/2016 NEHA ROSENBERG APRN Ot C34.90 MALIGNANT NEOPLASM OF UNSP [facility] 06/05/2016 NEHA ROSENBERG APRN Ot F17.210 NICOTINE DEPENDENCE, CIGARETTES, UNCOMPL 06/05/2016 NEHA ROSENBERG WATCH TECHNICIAN Ot J44.9 CHRONIC OBSTRUCTIVE PULMONARY DISEASE, U 06/05/2016 NEHA ROSENBERG WATCH TECHNICIAN Ot R91.1 SOLITARY PULMONARY NODULE 06/05/2016 CONNIE ÁLVAREZ SAVINGS COUNSELOR Ot I48.0 PAROXYSMAL ATRIAL FIBRILLATION 06/05/2016 JUVENCIOCONNIE BROWNING SAVINGS COUNSELOR Ot J44.9 CHRONIC OBSTRUCTIVE PULMONARY DISEASE, U 06/05/2016 JUVENCIOCONNIE BROWNING SAVINGS COUNSELOR Ot R06.09 OTHER FORMS OF DYSPNEA 06/05/2016 BAICONNIE BROWNING SAVINGS COUNSELOR Ot R07.9 CHEST PAIN, UNSPECIFIED 06/05/2016 WILBERTO SUMMERS FACC, ALI FACP CCDS Ot C34.90 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 06/05/2016 WILBERTO SUMMERS FACC, ALI FACP CCDS Ot I48.0 PAROXYSMAL ATRIAL FIBRILLATION 06/05/2016 WILBERTO SUMMERS FACC, ALI FACP CCDS Ot J43.8 OTHER EMPHYSEMA 06/05/2016 ZAIN SUMMERS, KEM Ot C34.90 MALIGNANT NEOPLASM OF UNSP [facility] 06/05/2016 ZAIN SUMMERS, KEM Ot M89.8X0 OTHER SPECIFIED DISORDERS OF BONE, MULTI 06/05/2016 WILBERTO SUMMERS FACC, ALI FACP CCDS Ot I48.0 PAROXYSMAL ATRIAL FIBRILLATION 06/05/2016 WILBERTO SUMMERS FACC, ALI FACP CCDS Ot J43.8 OTHER EMPHYSEMA 06/05/2016 WILBERTO SUMMERS FACC, ALI FACP CCDS Ot R00.2 PALPITATIONS 06/05/2016 MEENAKSHI SUMMERS, ATMCRISTIANA U Ot C34.90 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 06/05/2016 BRIT ROSENBERG DO M Ot I48.0 PAROXYSMAL ATRIAL FIBRILLATION 06/11/2016 BRIT ROSENBERG DO Ot F41.9 ANXIETY DISORDER, UNSPECIFIED 06/11/2016 BRIT ROSENBERG DO Ot G89.4 CHRONIC PAIN SYNDROME 06/11/2016 BRIT ROSENBERG DO Ot I48.0 PAROXYSMAL ATRIAL FIBRILLATION 06/11/2016 BRIT ORSENBERG DO Ot M47.812 SPONDYLOSIS W/O MYELOPATHY OR RADICULOPA 06/21/2016 MEENAKSHI SUMMERS, ATMAN U Ot C34.90 MALIGNANT NEOPLASM OF UNSP PART OF [facility] 06/28/2016 ROSENBERGDARIEL LEARY AMANDA M Ot F41.9 ANXIETY DISORDER, UNSPECIFIED 06/28/2016 ROSENBERGBRIT VIEIRA DO M Ot G89.4 CHRONIC PAIN SYNDROME 06/28/2016 ROSENBERG DO, BRIT M Ot I48.0 PAROXYSMAL ATRIAL FIBRILLATION 06/28/2016 ROSENBERG DO BRIT M Ot M47.812 SPONDYLOSIS W/O MYELOPATHY OR RADICULOPA 07/03/2016 BRIT ROSENBERG DO M Ot F41.9 ANXIETY DISORDER, UNSPECIFIED 07/03/2016 BRIT ROSENBERG DO M Ot G89.4 CHRONIC PAIN SYNDROME 07/03/2016 ROSENBERG DO, BRIT M Ot I48.0 PAROXYSMAL ATRIAL FIBRILLATION 07/03/2016 ROSENBERG DO BRIT M Ot M47.812 SPONDYLOSIS W/O MYELOPATHY OR RADICULOPA 07/10/2016 MEENAKSHI SUMMERS, ATMAN U Ot C34.90 [facility] 07/13/2016 WILBERTO SUMMERS FACC, ALI FACP CCDS Ot I48.0 PAROXYSMAL ATRIAL FIBRILLATION 07/13/2016 WILBERTO SUMMERS FACC, ALI FACP CCDS Ot J43.8 OTHER EMPHYSEMA 07/13/2016 WILBERTO SUMMERS FACC, ALI FACP CCDS Ot R00.2 PALPITATIONS 07/13/2016 ZAIN SUMMERS, KEM Ot C34.90 [facility] 07/13/2016 ZAIN SUMMERS, KEM Ot [...] M47.812 SPONDYLOSIS W/O MYELOPATHY OR RADICULOPA 08/14/2016 MARTINEZ DO, ALESSANDRO P Ot M50.20 OTHER CERVICAL DISC DISPLACEMENT, UNSP C 08/14/2016 NEHA ROSENBERG WATCH TECHNICIAN Ot C34.90 MALIGNANT NEOPLASM OF UNSP PART OF [facility] 08/14/2016 NEHA ROSENBERG WATCH TECHNICIAN Ot F17.210 NICOTINE DEPENDENCE, CIGARETTES, UNCOMPL 08/14/2016 NEHA ROSENBERG WATCH TECHNICIAN Ot J44.9 CHRONIC OBSTRUCTIVE PULMONARY DISEASE, U 08/14/2016 NEHA ROSENBERG WATCH TECHNICIAN Ot R91.1 SOLITARY PULMONARY NODULE 08/14/2016 BAIMACONNIE SAVINGS COUNSELOR Ot I48.0 PAROXYSMAL ATRIAL FIBRILLATION 08/14/2016 BAICONNIE BROWNING SAVINGS COUNSELOR Ot J44.9 CHRONIC OBSTRUCTIVE PULMONARY DISEASE, U 08/14/2016 CONNIE ÁLVRAEZ SAVINGS COUNSELOR Ot R06.09 OTHER FORMS OF DYSPNEA 08/14/2016 BAICONNIE BROWNING SAVINGS COUNSELOR Ot R07.9 CHEST PAIN, UNSPECIFIED 08/14/2016 WILBERTO SUMMERS FACC, ALI FACP CCDS Ot C34.90 MALIGNANT NEOPLASM OF UNSP PART OF [facility] 08/14/2016 WILBERTO SUMMERS FACC, ALI FACP CCDS Ot I48.0 PAROXYSMAL ATRIAL FIBRILLATION 08/14/2016 WILBERTO SUMMERS FACC, ALI FACP CCDS Ot J43.8 OTHER EMPHYSEMA 08/14/2016 ZAIN SUMMERS, KEM Ot C34.90 MALIGNANT NEOPLASM OF UNSP PART OF [facility] 08/14/2016 ZAIN SUMMERS, KEM Ot M89.8X0 OTHER SPECIFIED DISORDERS OF BONE, MULTI 08/14/2016 WILBERTO SUMMERS FACC, ALI FACP CCDS Ot I48.0 PAROXYSMAL ATRIAL FIBRILLATION 08/14/2016 WILBERTO SUMMERS FACC, ALI FACP CCDS Ot J43.8 OTHER EMPHYSEMA 08/14/2016 WILBERTO SUMMERS FACC, ALI FACP CCDS Ot R00.2 PALPITATIONS 08/14/2016 MEENAKSHI SUMMERS, [facility] U Ot C34.90 MALIGNANT NEOPLASM OF UNSP PART OF [facility] 08/14/2016 BRIT ROSENBERG DO Ot F41.9 ANXIETY DISORDER, UNSPECIFIED 08/14/2016 BRIT ROSENBERG DO Ot G89.4 CHRONIC PAIN SYNDROME 08/14/2016 BRIT ROSENBERG DO Ot I48.0 PAROXYSMAL ATRIAL FIBRILLATION 08/14/2016 BRIT ROSENBERG DO Ot M47.812 SPONDYLOSIS W/O MYELOPATHY OR RADICULOPA 08/14/2016 SIDRA STOLL MD, Ot I48.2 CHRONIC ATRIAL FIBRILLATION 08/14/2016 SIDRA STOLL MD, Ot J01.90 ACUTE SINUSITIS, UNSPECIFIED 08/14/2016 SIDRA STOLL MD Ot J40 BRONCHITIS, NOT SPECIFIED ACUTE OR CH 08/14/2016 SIDRA STOLL MD, Ot J44.9 CHRONIC OBSTRUCTIVE PULMONARY DISEASE, U 08/14/2016 SIDRA STOLL MD Ot R05 COUGH 08/14/2016 SIDRA STOLL MD Ot Z79.01 [facility] (CURRENT) USE OF ANTICOAGULANT 08/14/2016 SIDRA STOLL MD Ot Z79.899 OTHER [facility] (CURRENT) DRUG THERAPY 08/14/2016 SIDRA STOLL MD Ot Z85.118 PERSONAL HISTORY OF MALIGNANT NEOPLASM O 08/14/2016 SIDRA STOLL MD, Ot 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] 08/15/2016 SIDRA STOLL MD Ot I48.2 CHRONIC ATRIAL FIBRILLATION 08/15/2016 SIDRA STOLL MD, Ot J01.90 ACUTE SINUSITIS, UNSPECIFIED 08/15/2016 SIDRA STOLL MD Ot J40 BRONCHITIS, NOT SPECIFIED ACUTE OR CH 08/15/2016 SIDRA STOLL MD Ot J44.9 CHRONIC OBSTRUCTIVE PULMONARY DISEASE, U 08/15/2016 SIDRA STOLL MD Ot R05 COUGH 08/15/2016 SIDRA STOLL MD Ot Z79.01 [facility] (CURRENT) USE OF ANTICOAGULANT 08/15/2016 SIDRA STOLL MD Ot Z79.899 OTHER [employer] (CURRENT) DRUG THERAPY 08/15/2016 SIDRA STOLL MD Ot Z85.118 PERSONAL HISTORY OF MALIGNANT NEOPLASM O 08/15/2016 SIDRA STOLL MD Ot 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] 08/20/2016 Mihai Serrano W 427.31 ATRIAL FIBRILLATION 08/20/2016 Mihai Serrano I48.91 UNSPECIFIED ATRIAL FIBRILLATION 08/20/2016 Howayek, Mihai W 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 08/20/2016 Mihai Serrano W Z85.118 PERSONAL HISTORY OF MALIGNANT NEOPLASM OF BRONCHUS AND LUNG 08/29/2016 Bubba Santillan W 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, BRONCHUS OR LUNG 08/29/2016 Bubba Santillan A 491.20 OBSTRUCTIVE CHRONIC BRONCHITIS, WITHOUT EXACERBATION 08/29/2016 Bubba Santillan W C34.2 MALIGNANT NEOPLASM OF MIDDLE LOBE, BRONCHUS OR LUNG 08/29/2016 Bubba Santillan A J44.9 CHRONIC OBSTRUCTIVE PULMONARY DISEASE, UNSPECIFIED 09/01/2016 Mihai Serrano A 466.0 ACUTE BRONCHITIS 09/01/2016 Mihai Serrano J20.9 ACUTE BRONCHITIS, UNSPECIFIED 09/01/2016 Mihai Serrano 786.05 SHORTNESS OF BREATH 09/01/2016 Mihai Serrano R06.02 SHORTNESS OF BREATH 10/04/2016 MEENAKSHI SUMMERS, ATMCRISTIANA U Ot 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 10/11/2016 MEENAKSHI SUMMERS, ATMAN U Ot 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 10/24/2016 NIA SUMMERS, JOSEPHINE S Ot 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 10/24/2016 NIA SUMMERS, JOSEPHINE S Ot R91.1 SOLITARY PULMONARY NODULE 10/24/2016 [...] FOR MALIGNANT NE 11/29/2016 LAKESHIA ARRIAGA MD Ot R93.8 ABNORMAL FINDINGS ON DIAGNOSTIC IMAGING 11/29/2016 LAKESHIA ARRIAGA MD Ot Z01.818 ENCOUNTER FOR OTHER PREPROCEDURAL EXAMIN 11/29/2016 LAKESHIA ARRIAGA MD N Ot Z11.2 ENCOUNTER FOR SCREENING FOR OTHER BACTER 11/29/2016 LAKESHIA ARRIAGA MD N Ot Z85.118 PERSONAL HISTORY OF MALIGNANT NEOPLASM O 11/30/2016 LAKESHIA ARRIAGA MD N Ot R93.8 ABNORMAL FINDINGS ON DIAGNOSTIC IMAGING 11/30/2016 LAKESHIA ARRIAGA MD Ot Z01.818 ENCOUNTER FOR OTHER PREPROCEDURAL EXAMIN 11/30/2016 LAKESHIA ARRIAGA MD N Ot Z11.2 ENCOUNTER FOR SCREENING FOR OTHER BACTER 11/30/2016 LAKESHIA ARRIAGA MD N Ot Z85.118 PERSONAL HISTORY OF MALIGNANT NEOPLASM O 12/03/2016 LAKESHIA ARRIAGA MD N Ot R93.5 ABN FINDINGS ON DX IMAGING OF ABD REGION 12/03/2016 LAKESHIA ARRIAGA MD N Ot Z78.0 ASYMPTOMATIC MENOPAUSAL STATE 12/03/2016 JOSEPHINE KRAMER MD S Ot 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 12/03/2016 JOSEPHINE KRAMER MD S Ot R91.1 SOLITARY PULMONARY NODULE 12/05/2016 LAKESHIA ARRIAGA MD Ot R93.5 ABN FINDINGS ON DX IMAGING OF ABD REGION 12/05/2016 LAKESHIA ARRIAGA MD Ot Z78.0 ASYMPTOMATIC MENOPAUSAL STATE 12/14/2016 JOSEPHINE [...] R07.9 CHEST PAIN, UNSPECIFIED 12/21/2016 VIVIAN BARRERA APRN Ot Z79.899 OTHER STEEL ENGRAVER (CURRENT) DRUG THERAPY 12/23/2016 BARRERA, PETER J WATCH TECHNICIAN Ot I48.2 CHRONIC ATRIAL FIBRILLATION 12/23/2016 VIVIAN BARRERA WATCH TECHNICIAN Ot J44.9 CHRONIC OBSTRUCTIVE PULMONARY DISEASE, U 12/23/2016 VIVIAN BARRERA WATCH TECHNICIAN Ot M54.6 PAIN IN THORACIC SPINE 12/23/2016 VIVIAN BARRERA WATCH TECHNICIAN Ot R07.89 OTHER CHEST PAIN 12/23/2016 VIVIAN BARRERA WATCH TECHNICIAN Ot R07.9 CHEST PAIN, UNSPECIFIED 12/23/2016 VIVIAN BARRERA WATCH TECHNICIAN Ot Z79.899 OTHER [facility] (CURRENT) DRUG THERAPY 01/30/2017 ANDIE RICHARDS DO [...] DO Ot M50.20 OTHER CERVICAL DISC DISPLACEMENT, [facility] C 01/30/2017 NEHA ROSENBERG APRN Ot C34.90 MALIGNANT NEOPLASM OF [facility] PART OF [facility] 01/30/2017 NEHA ROSENBERG APRN Ot F17.210 NICOTINE DEPENDENCE, CIGARETTES, UNCOMPL 01/30/2017 NEHA ROSENBERG APRN Ot J44.9 CHRONIC OBSTRUCTIVE PULMONARY DISEASE, U 01/30/2017 NEHA ROSENBERG APRN Ot R91.1 SOLITARY PULMONARY NODULE 01/30/2017 CONNIE ÁLVAREZ SAVINGS COUNSELOR Ot I48.0 PAROXYSMAL ATRIAL FIBRILLATION 01/30/2017 CONNIE ÁLVAREZ SAVINGS COUNSELOR Ot J44.9 CHRONIC OBSTRUCTIVE PULMONARY DISEASE, U 01/30/2017 CONNIE ÁLVAREZ SAVINGS COUNSELOR Ot R06.09 OTHER FORMS OF DYSPNEA 01/30/2017 CONNIE ÁLVAREZ SAVINGS COUNSELOR Ot R07.9 CHEST PAIN, UNSPECIFIED 01/30/2017 WILBERTO SUMMERS FACC, ALI FACP CCDS Ot C34.90 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 01/30/2017 WILBERTO SUMMERS FAC, ALI FACP CCDS Ot I48.0 PAROXYSMAL ATRIAL FIBRILLATION 01/30/2017 WILBERTO SUMMERS FAC, ALI FACP CCDS Ot J43.8 OTHER EMPHYSEMA 01/30/2017 ZAIN SUMMERS, KEM Ot C34.90 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 01/30/2017 ZAIN SUMMERS, KEM Ot M89.8X0 OTHER SPECIFIED DISORDERS OF BONE, MULTI 01/30/2017 WILBERTO SUMMERS FAC, ALI FACP CCDS Ot I48.0 PAROXYSMAL ATRIAL FIBRILLATION 01/30/2017 WILBERTO SUMMERS FAC, ALI FACP CCDS Ot J43.8 OTHER EMPHYSEMA 01/30/2017 WILBERTO SUMMERS FAC, ALI FACP CCDS Ot R00.2 PALPITATIONS 01/30/2017 MEENAKSHI SUMMERS, ATMCRISTIANA U Ot C34.90 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 01/30/2017 BRIT ROSENBERG DO Ot F41.9 ANXIETY DISORDER, UNSPECIFIED 01/30/2017 BRIT ROSENBERG DO Ot G89.4 CHRONIC PAIN SYNDROME 01/30/2017 BRIT ROSENBERG DO Ot I48.0 PAROXYSMAL ATRIAL FIBRILLATION 01/30/2017 BRIT ROSENBERG DO Ot M47.812 SPONDYLOSIS W/O MYELOPATHY OR RADICULOPA 01/30/2017 MEENAKSHI SUMMERS, ATMCRISTIANA U Ot 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 01/30/2017 NIA SUMMERS, JOSEPHINE S Ot 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 01/30/2017 JOSEPHINE KRAMER MD S Ot R91.1 SOLITARY PULMONARY NODULE 01/30/2017 Ot N88.8 OTHER SPECIFIED NONINFLAMMATORY DISORDER 01/30/2017 Ot Z12.31 ENCNTR SCREEN MAMMOGRAM FOR MALIGNANT NE 01/30/2017 BRIT ROSENBERG DO Ot K59.00 CONSTIPATION, UNSPECIFIED 01/30/2017 BRIT ROSENBERG DO Ot R53.83 OTHER FATIGUE 01/30/2017 BRIT ROSENBERG DO Ot Z11.59 ENCOUNTER FOR SCREENING FOR OTHER VIRAL 02/07/2017 BRIT ROSENBERG DO Ot K59.00 CONSTIPATION, UNSPECIFIED 02/07/2017 BRIT ROSENBERG DO Ot R53.83 OTHER FATIGUE 02/07/2017 BRIT ROSENBERG DO Ot Z11.59 ENCOUNTER FOR SCREENING FOR OTHER VIRAL 02/12/2017 BRIT ROSENBERG DO Ot K59.00 CONSTIPATION, UNSPECIFIED 02/12/2017 BRIT ROSENBERG DO Ot R53.83 OTHER FATIGUE 02/12/2017 BRIT ROSENBERG DO Ot Z11.59 ENCOUNTER FOR SCREENING FOR OTHER VIRAL 02/19/2017 JOSEPHINE KRAMER MD Ot 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 02/19/2017 JOSEPHINE KRAMER MD Ot R91.1 SOLITARY PULMONARY NODULE 02/19/2017 JOSEPHINE KRAMER MD Ot 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] 02/27/2017 JOSEPHINE KRAMER MD Ot 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 02/27/2017 JOSEPHINE KRAMER MD Ot R91.1 SOLITARY PULMONARY NODULE 02/27/2017 JOSEPHINE KRAMER MD Ot 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] 05/13/2017 Mihai Serrano 473.9 UNSPECIFIED SINUSITIS (CHRONIC) 05/13/2017 Mihai Serrano 477.9 ALLERGIC RHINITIS, CAUSE UNSPECIFIED 05/13/2017 Mihai Serrano 719.41 PAIN IN JOINT INVOLVING SHOULDER REGION 05/13/2017 Mihai Serrano 916.0 ABRASION OR FRICTION BURN OF HIP, THIGH, LEG, AND ANKLE, WITHOUT MENTION OF INFECTION 05/13/2017 Mihai Serrano J30.9 ALLERGIC RHINITIS, UNSPECIFIED 05/13/2017 Mihai Serrano J32.9 CHRONIC SINUSITIS, UNSPECIFIED 05/13/2017 Mihai Serrano M25.512 PAIN IN LEFT SHOULDER 05/13/2017 Mihai Serrano S80.211A ABRASION, RIGHT KNEE, INITIAL ENCOUNTER 05/15/2017 ANDIE RICHARDS DO Ot 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 05/15/2017 ANDIE RICHARDS DO Ot 305.1 TOBACCO USE DISORDER 05/15/2017 ANDIE RICHARDS DO Ot 496 CHR AIRWAY OBSTRUCT NEC 05/15/2017 ABE HELLER DO Ot 246.9 DISORDER OF THYROID NOS 05/15/2017 HELLER DO ABE Luz Marina Ot 272.4 HYPERLIPIDEMIA NEC/NOS 05/15/2017 HELLER DOELIABE L Ot E78.5 HYPERLIPIDEMIA, UNSPECIFIED 05/15/2017 ALESSANDRO MARTINEZ DO Ot M47.812 SPONDYLOSIS W/O MYELOPATHY OR RADICULOPA 05/15/2017 ALESSANDRO MARTINEZ DO Ot M50.20 OTHER CERVICAL DISC DISPLACEMENT, [facility] C 05/15/2017 NEHA ROSENBERG WATCH TECHNICIAN Ot C34.90 MALIGNANT NEOPLASM OF UNSP PART OF [facility] 05/15/2017 NEHA ROSENBERG WATCH TECHNICIAN Ot F17.210 NICOTINE DEPENDENCE, CIGARETTES, UNCOMPL 05/15/2017 NEHA ROSENBERG WATCH TECHNICIAN Ot J44.9 CHRONIC OBSTRUCTIVE PULMONARY DISEASE, U 05/15/2017 NEHA ROSENBERG WATCH TECHNICIAN Ot R91.1 SOLITARY PULMONARY NODULE 05/15/2017 BAICONNIE BROWNING SAVINGS COUNSELOR Ot I48.0 PAROXYSMAL ATRIAL FIBRILLATION 05/15/2017 CONNIE ÁLVAREZ SAVINGS COUNSELOR Ot J44.9 CHRONIC OBSTRUCTIVE PULMONARY DISEASE, U 05/15/2017 CONNIE ÁLVAREZ SAVINGS COUNSELOR Ot R06.09 OTHER FORMS OF DYSPNEA 05/15/2017 BAICONNIE BROWNING SAVINGS COUNSELOR Ot R07.9 CHEST PAIN, UNSPECIFIED 05/15/2017 WILBERTO KELLEYC, ALI FACP CCDS Ot C34.90 MALIGNANT NEOPLASM OF UNSP PART OF [facility] 05/15/2017 WILBERTO SUMMERS FACC, ALI FACP CCDS Ot I48.0 PAROXYSMAL ATRIAL FIBRILLATION 05/15/2017 WILBERTO SUMMERS FACJose, ALI FACP CCDS Ot J43.8 OTHER EMPHYSEMA 05/15/2017 ZAIN SUMMERS, KEM Ot C34.90 MALIGNANT NEOPLASM OF UNSP PART OF [facility] 05/15/2017 ZAIN SUMMERS, KEM Ot M89.8X0 OTHER SPECIFIED DISORDERS OF BONE, MULTI 05/15/2017 WILBERTO SUMMERS FACC, ALI FACP CCDS Ot I48.0 PAROXYSMAL ATRIAL FIBRILLATION 05/15/2017 WILBERTO SUMMERS FACC, ALI FACP CCDS Ot J43.8 OTHER EMPHYSEMA 05/15/2017 WILBERTO SUMMERS FACC, ALI FACP CCDS Ot R00.2 PALPITATIONS 05/15/2017 MEENAKSHI SUMMERS, ATMAN U Ot C34.90 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 05/15/2017 MONICA LEARY BRIT Vega Ot F41.9 ANXIETY DISORDER, UNSPECIFIED 05/15/2017 MONICA LEARY BRIT Gary Ot G89.4 CHRONIC PAIN SYNDROME 05/15/2017 MONICA LEARY BRIT Gary Ot I48.0 PAROXYSMAL ATRIAL FIBRILLATION 05/15/2017 MONICA LEARY BRIT Gary Ot M47.812 SPONDYLOSIS W/O MYELOPATHY OR RADICULOPA 05/15/2017 MEENAKSHI SUMMERS, KHALIDA U Ot 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 05/15/2017 JOSEPHINE KRAMER MD S Ot 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 05/15/2017 JOSEPHINE KRAMER MD Ot R91.1 SOLITARY PULMONARY NODULE 05/15/2017 Ot N88.8 OTHER SPECIFIED NONINFLAMMATORY DISORDER 05/15/2017 Ot Z12.31 ENCNTR SCREEN MAMMOGRAM FOR MALIGNANT NE 05/15/2017 JOSEPHINE KRAMER MD S Ot 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 05/15/2017 JOSEPHINE KRAMER MD S Ot R91.1 SOLITARY PULMONARY NODULE 05/15/2017 JOSEPHINE KRAMER MD S Ot 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] 05/15/2017 MONICA BRIT Gary Ot K59.00 CONSTIPATION, UNSPECIFIED 05/15/2017 MONICA BRIT Gary Ot R53.83 OTHER FATIGUE 05/15/2017 MONICA LEARY BRIT Gary Ot Z11.59 ENCOUNTER FOR SCREENING FOR OTHER [...] FINDINGS ON DX 06/20/2017 JOSEPHINE KRAMER MD S Ot C34.2 MALIGNANT NEOPLASM OF MIDDLE LOBE, BRONC 06/20/2017 ANGELO KRAMER MDID S Ot 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, UNSPECIFIED ORGANISM 06/20/2017 JOSEPHINE KRAMER MD S Ot J30.9 ALLERGIC RHINITIS, UNSPECIFIED 06/20/2017 JOSEPHINE KRAMER MD S Ot J44.1 CHRONIC OBSTRUCTIVE PULMONARY DISEASE W 06/20/2017 ANGELO KRAMER MDID S Ot 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] 06/20/2017 JOSEPHINE KRAMER MD S Ot C34.2 MALIGNANT NEOPLASM OF MIDDLE LOBE, BRONC 06/20/2017 JOSEPHINE KRAMER MD S Ot 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, UNSPECIFIED ORGANISM 06/20/2017 JOSEPHINE KRAMER MD S Ot J30.9 ALLERGIC RHINITIS, UNSPECIFIED 06/20/2017 JOSEPHINE KRAMER MD S Ot J44.1 CHRONIC OBSTRUCTIVE PULMONARY DISEASE W 06/20/2017 ANGELO KRAMER MDID S Ot 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] 06/21/2017 Brown, Bubba A 482.1 PNEUMONIA DUE TO PSEUDOMONAS 06/21/2017 Brown, Bubba A J15.1 PNEUMONIA DUE TO PSEUDOMONAS 06/22/2017 Brown, Bubba A 482.1 PNEUMONIA DUE TO PSEUDOMONAS 06/22/2017 Brown, Bubba A J15.1 PNEUMONIA DUE TO PSEUDOMONAS 06/23/2017 Brown, Bubba A 482.1 PNEUMONIA DUE TO PSEUDOMONAS 06/23/2017 Brown, Bubba A J15.1 PNEUMONIA DUE TO PSEUDOMONAS 06/24/2017 Brown, Bubba A 482.1 PNEUMONIA DUE TO PSEUDOMONAS 06/24/2017 Brown, Bubba A J15.1 PNEUMONIA DUE TO PSEUDOMONAS 06/25/2017 A 482.1 PNEUMONIA DUE TO PSEUDOMONAS 06/25/2017 A J15.1 PNEUMONIA DUE TO PSEUDOMONAS 06/26/2017 Brown, Bubba A 482.1 PNEUMONIA DUE TO PSEUDOMONAS 06/26/2017 Brown, Bubba A J15.1 PNEUMONIA DUE TO PSEUDOMONAS 06/27/2017 CANDY SUMMERS, EDU Raza Ot C34.90 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 06/27/2017 EDU GUPTA MD Ot J43.9 EMPHYSEMA, UNSPECIFIED 06/27/2017 CANDY SUMMERS, EDU Raza Ot R92.8 OTH ABN AND INCONCLUSIVE FINDINGS ON DX 06/27/2017 JOSEPHINE KRAMER MD Ot C34.2 MALIGNANT NEOPLASM OF MIDDLE LOBE, BRONC 06/27/2017 JOSEPHINE KRAMER MD Ot 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, UNSPECIFIED ORGANISM 06/27/2017 JOSEPHINE KRAMER MD Ot J30.9 ALLERGIC RHINITIS, UNSPECIFIED 06/27/2017 JOSEPHINE KRAMER MD Ot J44.1 CHRONIC OBSTRUCTIVE [...] DEPRESSIVE DISORDER, SINGLE EPISOD 07/08/2017 SIDRA STOLL MD Ot F41.9 ANXIETY DISORDER, UNSPECIFIED 07/08/2017 SIDRA STOLL MD Ot J40 BRONCHITIS, NOT SPECIFIED ACUTE OR CH 07/08/2017 SIDRA STOLL MD Ot J44.9 CHRONIC OBSTRUCTIVE PULMONARY DISEASE, U 07/08/2017 SIDRA STOLL MD Ot K58.9 IRRITABLE BOWEL SYNDROME WITHOUT DIARRHE 07/08/2017 SIDRA STOLL MD Ot R06.02 SHORTNESS OF BREATH 07/08/2017 SIDRA STOLL MD Ot Z85.118 PERSONAL HISTORY OF MALIGNANT NEOPLASM O 07/08/2017 SIDRA STOLL MD Ot 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] 07/08/2017 SIDRA STOLL MD Ot Z98.51 TUBAL LIGATION STATUS 07/09/2017 VIVIAN [...] SMO 07/09/2017 VIVIAN BARRERA APRN Ot Z79.01 [facility] (CURRENT) USE OF ANTICOAGULANT 07/09/2017 VIVIAN BARRERA APRN Ot Z85.118 PERSONAL HISTORY OF MALIGNANT NEOPLASM O 07/09/2017 VIVIAN BARRERA APRN Ot Z87.19 PERSONAL HISTORY OF OTHER DISEASES OF TH 07/09/2017 VIVIAN BARRERA APRN Ot 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] 07/09/2017 VIVIAN BARRERA APRN Ot Z98.51 TUBAL LIGATION STATUS 07/12/2017 SIDRA STOLL MD Ot F17.210 NICOTINE DEPENDENCE, CIGARETTES, UNCOMPL 07/12/2017 SIDRA STOLL MD, Ot F32.9 MAJOR DEPRESSIVE DISORDER, SINGLE EPISOD 07/12/2017 SIDRA STOLL MD, Ot F41.9 ANXIETY DISORDER, UNSPECIFIED 07/12/2017 SIDRA STOLL MD, Ot J40 BRONCHITIS, NOT SPECIFIED ACUTE OR CH 07/12/2017 SIDRA STOLL MD, Ot J44.9 CHRONIC OBSTRUCTIVE PULMONARY DISEASE, U 07/12/2017 SIDRA STOLL MD, Ot K58.9 IRRITABLE BOWEL SYNDROME WITHOUT DIARRHE 07/12/2017 SIDRA STOLL MD, Ot R06.02 SHORTNESS OF BREATH 07/12/2017 SIDRA STOLL MD Ot Z85.118 PERSONAL HISTORY OF MALIGNANT NEOPLASM O 07/12/2017 SIDRA STOLL MD, Ot 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] 07/12/2017 SIDRA STOLL MD, Ot Z98.51 TUBAL LIGATION STATUS 07/15/2017 VIVIAN [...] SMO 07/15/2017 VIVIAN BARRERA APRN Ot Z79.01 STEEL ENGRAVER (CURRENT) USE OF ANTICOAGULANT 07/15/2017 VIVIAN BARRERA APRN Ot Z85.118 PERSONAL HISTORY OF MALIGNANT NEOPLASM O 07/15/2017 VIVIAN BARRERA APRN Ot Z87.19 PERSONAL HISTORY OF OTHER DISEASES OF TH 07/15/2017 VIVIAN BARRERA APRN Ot 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] 07/15/2017 VIVIAN BARRERA APRN Ot Z98.51 TUBAL LIGATION STATUS 07/17/2017 WILBERTO SUMMERS FACC, ALI FACP CCDS Ot I48.0 PAROXYSMAL ATRIAL FIBRILLATION 07/17/2017 WILBERTO SUMMERS FACC, ALI FACP CCDS Ot J43.8 OTHER EMPHYSEMA 07/17/2017 WILBERTO SUMMERS FACC, ALI FACP CCDS Ot R00.2 PALPITATIONS 07/17/2017 WILBERTO SUMMERS [facility], ALI FACP CCDS Ot R06.09 OTHER FORMS OF DYSPNEA 07/17/2017 WILBERTO SUMMERS [facility] CCDS Ot Z72.0 TOBACCO USE 07/17/2017 WILBERTO KELLEY, [facility] CCDS Ot Z85.118 PERSONAL HISTORY OF MALIGNANT [...] DO Ot I48.91 UNSPECIFIED ATRIAL FIBRILLATION 07/26/2017 SKYE BARCENAS DOI Ot J18.9 PNEUMONIA, UNSPECIFIED ORGANISM 07/26/2017 SKYE BARCENAS DOI Ot J44.0 CHRONIC [...] 07/26/2017 JOSE DANIEL BARCENAS DO Ot Z79.01 [facility] (CURRENT) USE OF ANTICOAGULANT 07/26/2017 JOSE DANIEL BARCENAS DO Ot Z85.118 PERSONAL HISTORY OF MALIGNANT NEOPLASM O 07/26/2017 JOSE DANIEL BARCENAS DO Ot 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] 07/26/2017 JOSE DANIEL BARCENAS DO Ot A41.9 SEPSIS, UNSPECIFIED ORGANISM 07/26/2017 JOSE DANIEL BARCENAS DO Ot B96.3 HEMOPHILUS INFLUENZAE THE CAUSE OF DI 07/26/2017 JOSE DANIEL BARCENAS DO Ot E78.5 HYPERLIPIDEMIA, UNSPECIFIED 07/26/2017 JOSE DANIEL BARCENAS DO Ot F17.210 NICOTINE DEPENDENCE, CIGARETTES, UNCOMPL 07/26/2017 JOSE DANIEL BARCENAS DO Ot F32.9 MAJOR DEPRESSIVE DISORDER, SINGLE EPISOD 07/26/2017 JOSE DANIEL BARCENAS DO Ot F41.9 ANXIETY DISORDER, UNSPECIFIED 07/26/2017 JOSE DANIEL BARCENAS DO Ot I48.2 CHRONIC ATRIAL FIBRILLATION 07/26/2017 JOSE DANIEL BARCENAS DO Ot J14 PNEUMONIA DUE TO HEMOPHILUS INFLUENZAE 07/26/2017 JOSE DANIEL BARCENAS DO Ot J44.0 [...] 07/26/2017 JOSE DANIEL BARCENAS DO Ot Z79.01 [facility] (CURRENT) USE OF ANTICOAGULANT 07/26/2017 JOSE DANIEL BARCENAS DO Ot Z85.118 PERSONAL HISTORY OF MALIGNANT NEOPLASM O 07/26/2017 JOSE DANIEL BARCENAS DO Ot 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] 2017 WILBERTO SUMMERS FACC, ALI FACP CCDS Ot I48.0 PAROXYSMAL ATRIAL FIBRILLATION 2017 WILBERTO SUMMERS FACC, ALI FACP CCDS Ot J43.8 OTHER EMPHYSEMA 2017 WILBERTO SUMMERS FACC, GIBRAN FACP CCDS Ot R00.2 PALPITATIONS 2017 WILBERTO SUMMERS FACC, ALI FACP CCDS Ot R06.09 OTHER FORMS OF DYSPNEA 2017 WILBERTO SUMMERS FACC, ALI FACP CCDS Ot Z72.0 TOBACCO USE 2017 WILBERTO SUMMERS FACC, ALI FACP CCDS Ot Z85.118 PERSONAL HISTORY OF MALIGNANT NEOPLASM O 08/14/2017 WILBERTO SUMMERS FAC, ALI FACP CCDS Ot I48.0 PAROXYSMAL ATRIAL FIBRILLATION 08/14/2017 WILBERTO SUMMERS FAC, ALI FACP CCDS Ot J43.8 OTHER EMPHYSEMA 08/14/2017 WILBERTO SUMMERS FACC, ALI FACP CCDS Ot R00.2 PALPITATIONS 08/14/2017 WILBERTO SUMMERS FAC, ALI FACP CCDS Ot R06.09 OTHER FORMS OF DYSPNEA 08/14/2017 WILBERTO SMUMERS FAC, ALI FACP CCDS Ot Z72.0 TOBACCO USE 08/14/2017 WILBERTO SUMMERS FAC, ALI FACP CCDS Ot Z85.118 PERSONAL HISTORY OF MALIGNANT NEOPLASM O 08/15/2017 ANGELO KRAMER MDID S Ot C34.2 MALIGNANT NEOPLASM OF MIDDLE LOBE, BRONC 08/15/2017 NIA SUMMERS JOSEPHINE S Ot 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, UNSPECIFIED ORGANISM 08/15/2017 NIA SUMMERS JOSEPHINE S Ot J30.9 ALLERGIC RHINITIS, UNSPECIFIED 08/15/2017 NIA SUMMERS JOSEPHINE S Ot J44.1 CHRONIC OBSTRUCTIVE PULMONARY DISEASE W 08/15/2017 NIA SUMMERS JOSEPHINE S Ot 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] 08/23/2017 NAI SUMMERS JOSEPHINE S Ot C34.2 MALIGNANT NEOPLASM OF MIDDLE LOBE, BRONC 08/23/2017 ANGELO KRAMER MDID S Ot 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, UNSPECIFIED ORGANISM 08/23/2017 NIA SUMMERS JOSEPHINE S Ot J30.9 ALLERGIC RHINITIS, UNSPECIFIED 08/23/2017 NIA SUMMERS JOSEPHINE S Ot J44.1 CHRONIC OBSTRUCTIVE PULMONARY DISEASE W 08/23/2017 NIA SUMMERS JOSEPHINE S Ot 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] 09/06/2017 MEENAKSHI SUMMERS, ATMCRISTIANA U Ot 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 09/06/2017 MEENAKSHI SUMMERS, ATMCRISTIANA U Ot R91.1 SOLITARY PULMONARY NODULE 09/06/2017 MEENAKSHI SUMMERS ATMCRISTIANA U Ot 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] 09/09/2017 MEENAKSHI SUMMERS, ATMCRISTIANA U Ot 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, LEFT B 09/11/2017 NIA SUMMERS JOSEPHINE S Ot C34.2 MALIGNANT NEOPLASM OF MIDDLE LOBE, BRONC 09/11/2017 NIA SUMMERS, JOSEPHINE S Ot 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, UNSPECIFIED ORGANISM 09/11/2017 NIA SUMMERS, JOSEPHINE S Ot J30.9 ALLERGIC RHINITIS, UNSPECIFIED 09/11/2017 NIA SUMMERS, JOSEPHINE S Ot J44.1 CHRONIC OBSTRUCTIVE PULMONARY DISEASE W 09/11/2017 NIA SUMMERS, JOSEPHINE S Ot 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] 09/12/2017 MEENAKSHI SUMMERS, ATMAN U Ot 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 09/12/2017 MEENAKSHI SUMMERS, ATMAN U Ot R91.1 SOLITARY PULMONARY NODULE 09/12/2017 MEENAKSHI SUMMERS, ATMAN U Ot 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] 09/13/2017 BAM LOPEZ Ot E78.00 PURE HYPERCHOLESTEROLEMIA, UNSPECIFIED 09/13/2017 BAM LOPEZ Ot F32.9 MAJOR DEPRESSIVE DISORDER, SINGLE EPISOD 09/13/2017 BAM LOPEZ Ot F41.9 ANXIETY DISORDER, UNSPECIFIED 09/13/2017 BAM LOPEZ Ot H11.31 CONJUNCTIVAL HEMORRHAGE, RIGHT EYE 09/13/2017 BAM LOPEZ Ot H57.8 OTHER SPECIFIED DISORDERS OF EYE AND ADN 09/13/2017 BAM LOPEZ Ot I48.91 UNSPECIFIED ATRIAL FIBRILLATION 09/13/2017 BAM LOPEZ Ot J44.9 CHRONIC OBSTRUCTIVE PULMONARY DISEASE, U 09/13/2017 BAM LOPEZ Ot K21.9 GASTRO-ESOPHAGEAL REFLUX DISEASE WITHOUT 09/13/2017 BAM LOPEZ Ot Z77.22 CNTCT W AND EXPSR TO ENVIRON TOBACCO SMO 09/13/2017 BAM LOPEZ Ot Z80.2 FAMILY HX OF ELY BHAGATPLM OF RESP AND IN 09/13/2017 BAM LOPEZ Ot Z85.118 PERSONAL HISTORY OF MALIGNANT NEOPLASM O 09/13/2017 BAM LOPEZ Ot Z98.51 TUBAL LIGATION STATUS 09/16/2017 BAM LOPEZ Ot E78.00 PURE HYPERCHOLESTEROLEMIA, UNSPECIFIED 09/16/2017 BAM LOPEZ Ot F32.9 MAJOR DEPRESSIVE DISORDER, SINGLE EPISOD 09/16/2017 BAM LOPEZ Ot F41.9 ANXIETY DISORDER, UNSPECIFIED 09/16/2017 BAM LOPEZ Ot H11.31 CONJUNCTIVAL HEMORRHAGE, RIGHT EYE 09/16/2017 BAM LOPEZ Ot H57.8 OTHER SPECIFIED DISORDERS OF EYE AND ADN 09/16/2017 BAM LOPEZ Ot I48.91 UNSPECIFIED ATRIAL FIBRILLATION 09/16/2017 BAM LOPEZ Ot J44.9 CHRONIC OBSTRUCTIVE PULMONARY DISEASE, U 09/16/2017 BAM LOPEZ Ot K21.9 GASTRO-ESOPHAGEAL REFLUX DISEASE WITHOUT 09/16/2017 BAM LOPEZ Ot Z77.22 CNTCT W AND EXPSR TO ENVIRON TOBACCO SMO 09/16/2017 BAM LOPEZ Ot Z80.2 FAMILY HX OF ELY OCHOA OF [facility] AND IN 09/16/2017 BAM LOPEZ Ot Z85.118 PERSONAL HISTORY OF MALIGNANT NEOPLASM O 09/16/2017 BAM LOPEZ Ot Z98.51 TUBAL LIGATION STATUS 09/16/2017 Mihai Serrano 462 ACUTE PHARYNGITIS 09/16/2017 Mihai Serrano 491.20 OBSTRUCTIVE CHRONIC BRONCHITIS, WITHOUT EXACERBATION 09/16/2017 Mihai Serrano 786.2 COUGH 09/16/2017 Mihai Serrano J02.9 ACUTE PHARYNGITIS, UNSPECIFIED 09/16/2017 Mihai Serrano J44.9 CHRONIC OBSTRUCTIVE PULMONARY DISEASE, UNSPECIFIED 09/16/2017 Mihai Serrano R05 COUGH 09/17/2017 JOSEPHINE KRAMER MD S Ot C34.2 MALIGNANT NEOPLASM OF MIDDLE LOBE, [facility] 09/17/2017 ANGELO KRAMER MDID S Ot 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, UNSPECIFIED ORGANISM 09/17/2017 JOSEPHINE KRAMER MD S Ot J30.9 ALLERGIC RHINITIS, UNSPECIFIED 09/17/2017 JOSEPHINE KRAMER MD S Ot J44.1 CHRONIC OBSTRUCTIVE PULMONARY DISEASE W 09/17/2017 JOSEPHINE KRAMER MD S Ot 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] 09/20/2017 Jazmyn Jacobson W 491.21 OBSTRUCTIVE CHRONIC BRONCHITIS WITH (ACUTE) EXACERBATION 09/20/2017 Jacobson, [place] W J44.1 CHRONIC OBSTRUCTIVE PULMONARY DISEASE WITH (ACUTE) EXACERBATION 09/20/2017 Jacobson, [place] W 491.21 OBSTRUCTIVE CHRONIC BRONCHITIS WITH (ACUTE) EXACERBATION 09/20/2017 Jacobson, [place] W J44.1 CHRONIC OBSTRUCTIVE PULMONARY DISEASE WITH (ACUTE) EXACERBATION 09/20/2017 Jacobson, [place] W 491.21 OBSTRUCTIVE CHRONIC BRONCHITIS WITH (ACUTE) EXACERBATION 09/20/2017 Jacobson, [place] W J44.1 CHRONIC OBSTRUCTIVE PULMONARY DISEASE WITH (ACUTE) EXACERBATION 09/20/2017 Jacobson, [place] W 491.21 OBSTRUCTIVE CHRONIC BRONCHITIS WITH (ACUTE) EXACERBATION 09/20/2017 Jacobson, [place] W J44.1 CHRONIC OBSTRUCTIVE PULMONARY DISEASE WITH (ACUTE) EXACERBATION 09/21/2017 Jacobson, [place] W 281.3 OTHER SPECIFIED MEGALOBLASTIC ANEMIAS, 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ASSIFIED 09/21/2017 Jacobson, [place] W 491.21 OBSTRUCTIVE CHRONIC BRONCHITIS WITH (ACUTE) EXACERBATION 09/21/2017 Jacobson, Jazmyn W D53.1 OTHER MEGALOBLASTIC ANEMIAS, 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ASSIFIED 09/21/2017 Jacobson, Jazmyn W J44.1 CHRONIC OBSTRUCTIVE PULMONARY DISEASE WITH (ACUTE) EXACERBATION 09/22/2017 Jacobson, [place] W 041.09 OTHER STREPTOCOCCUS INFECTION IN CONDITIONS CLASSIFIED ELSEWHERE AND OF UNSPECIFIED SITE 09/22/2017 Kavon, [place] W 281.3 OTHER SPECIFIED MEGALOBLASTIC ANEMIAS, 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ASSIFIED 09/22/2017 Jacobson, Jazmyn W 491.21 OBSTRUCTIVE CHRONIC BRONCHITIS WITH (ACUTE) EXACERBATION 09/22/2017 Jacobson, Jazmyn W B95.3 STREPTOCOCCUS PNEUMONIAE THE CAUSE OF DISEASES CLASSIFIED ELSEWHERE 09/22/2017 Jacobson, Julianneu W D53.1 OTHER MEGALOBLASTIC ANEMIAS, 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ASSIFIED 09/22/2017 Jacobson, Jazmyn W J44.1 CHRONIC OBSTRUCTIVE PULMONARY DISEASE WITH (ACUTE) EXACERBATION 09/22/2017 Jacobson, [place] W 041.09 OTHER STREPTOCOCCUS INFECTION IN CONDITIONS CLASSIFIED ELSEWHERE AND OF UNSPECIFIED SITE 09/22/2017 Kavon, [place] W 281.3 OTHER SPECIFIED MEGALOBLASTIC ANEMIAS, 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ASSIFIED 09/22/2017 Kavon, [place] W 491.21 OBSTRUCTIVE CHRONIC BRONCHITIS WITH (ACUTE) EXACERBATION 09/22/2017 Jacobson, [place] W B95.3 STREPTOCOCCUS PNEUMONIAE THE CAUSE OF DISEASES CLASSIFIED ELSEWHERE 09/22/2017 Jacobson, [place] W D53.1 OTHER MEGALOBLASTIC ANEMIAS, 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ASSIFIED 09/22/2017 Jacobson, [place] W J44.1 CHRONIC OBSTRUCTIVE PULMONARY DISEASE WITH (ACUTE) EXACERBATION 09/22/2017 Jacobson, [place] W 041.09 OTHER STREPTOCOCCUS INFECTION IN CONDITIONS CLASSIFIED ELSEWHERE AND OF UNSPECIFIED SITE 09/22/2017 Jacobson, [place] W 281.3 OTHER SPECIFIED MEGALOBLASTIC ANEMIAS, 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ASSIFIED 09/22/2017 Jacobson, [place] W 491.21 OBSTRUCTIVE CHRONIC BRONCHITIS WITH (ACUTE) EXACERBATION 09/22/2017 Jacobson, [place] W 564.09 OTHER CONSTIPATION 09/22/2017 Jacobson, [place] W B95.3 STREPTOCOCCUS PNEUMONIAE THE CAUSE OF DISEASES CLASSIFIED ELSEWHERE 09/22/2017 Jacobson, [place] W D53.1 OTHER MEGALOBLASTIC ANEMIAS, 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ASSIFIED 09/22/2017 Jacobson, [place] W J44.1 CHRONIC OBSTRUCTIVE PULMONARY DISEASE WITH (ACUTE) EXACERBATION 09/22/2017 Jacobson, [place] W K59.03 DRUG INDUCED CONSTIPATION 09/22/2017 Jacobson, [place] W 041.09 OTHER STREPTOCOCCUS INFECTION IN CONDITIONS CLASSIFIED ELSEWHERE AND OF UNSPECIFIED SITE 09/22/2017 Jacobson, [place] W 281.3 OTHER SPECIFIED MEGALOBLASTIC ANEMIAS, 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ASSIFIED 09/22/2017 Jacobson, [place] W 491.21 OBSTRUCTIVE CHRONIC BRONCHITIS WITH (ACUTE) EXACERBATION 09/22/2017 Jacobson, [place] W 564.09 OTHER CONSTIPATION 09/22/2017 Jacobson, [place] W 794.5 09/22/2017 Jacobson, [place] W B95.3 STREPTOCOCCUS PNEUMONIAE THE CAUSE OF DISEASES CLASSIFIED ELSEWHERE 09/22/2017 Ajcobson, [place] W D53.1 OTHER MEGALOBLASTIC ANEMIAS, 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ASSIFIED 09/22/2017 Jacobson, [place] W J44.1 CHRONIC OBSTRUCTIVE PULMONARY DISEASE WITH (ACUTE) EXACERBATION 09/22/2017 Jacobson, [place] W K59.03 DRUG INDUCED CONSTIPATION 09/22/2017 Jacobson, [place] W R94.6 ABNORMAL RESULTS OF THYROID FUNCTION STUDIES 09/22/2017 Jacobson, [place] W 041.09 OTHER STREPTOCOCCUS INFECTION IN CONDITIONS CLASSIFIED ELSEWHERE AND OF UNSPECIFIED SITE 09/22/2017 Jacobson, [place] W 276.3 09/22/2017 Jacobson, [place] W 281.3 OTHER SPECIFIED MEGALOBLASTIC ANEMIAS, 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ASSIFIED 09/22/2017 Jacobson, [place] W 281.9 09/22/2017 Jacobson, [place] W 427.31 09/22/2017 Jacobson, [place] W 466.0 09/22/2017 Jacobson, [place] W 491.21 OBSTRUCTIVE CHRONIC BRONCHITIS WITH (ACUTE) EXACERBATION 09/22/2017 Jacobson, [place] A 491.22 09/22/2017 Jacobson, [place] W 564.09 OTHER CONSTIPATION 09/22/2017 Jacobson, [place] W 794.5 09/22/2017 Jacobson, [place] W 799.02 09/22/2017 Jacobson, [place] W 995.20 09/22/2017 Jacobson, [place] W B95.3 STREPTOCOCCUS PNEUMONIAE THE CAUSE OF DISEASES CLASSIFIED ELSEWHERE 09/22/2017 Jacobson, [place] W D53.1 OTHER MEGALOBLASTIC ANEMIAS, 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ASSIFIED 09/22/2017 Jacobson, [place] W D53.9 NUTRITIONAL ANEMIA, UNSPECIFIED 09/22/2017 Jacobson, [place] W E87.3 09/22/2017 Jacobson, [place] W I48.91 UNSPECIFIED ATRIAL FIBRILLATION 09/22/2017 Jacobson, [place] W J20.2 09/22/2017 Jacobson, [place] A J44.0 CHRONIC OBSTRUCTIVE PULMON DISEASE W ACUTE LOWER RESP INFCT 09/22/2017 Jacobson, [place] W J44.1 CHRONIC OBSTRUCTIVE PULMONARY DISEASE WITH (ACUTE) EXACERBATION 09/22/2017 Jacobson, [place] W K59.03 DRUG INDUCED CONSTIPATION 09/22/2017 Jacobson, [place] W R09.02 09/22/2017 Jacobson, [place] W R94.6 ABNORMAL RESULTS OF THYROID FUNCTION STUDIES 09/22/2017 Jazmyn Jacobson W T50.905A ADVERSE EFFECT OF [facility] DRUG/MEDS/BIOL SUBST, INIT 10/09/2017 MEENAKSHI SUMMERS, ATMAN U Ot 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, LEFT B 10/21/2017 JOSEPHINE KRAMER W 491.20 OBSTRUCTIVE CHRONIC BRONCHITIS, WITHOUT EXACERBATION 10/21/2017 JOSEPHINE KRAMER W J44.9 CHRONIC OBSTRUCTIVE PULMONARY DISEASE, UNSPECIFIED 10/21/2017 CARLTON RICHARDS DOSON M Ot 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 10/21/2017 CARLTON RICHARDS DOSON M Ot 305.1 TOBACCO USE DISORDER 10/21/2017 ANDIE RICHARDS DO M Ot 496 CHR AIRWAY OBSTRUCT NEC 10/21/2017 PINA LEARY ABE L Ot 246.9 DISORDER OF THYROID NOS 10/21/2017 PINA LEARY ABE L Ot 272.4 HYPERLIPIDEMIA NEC/NOS 10/21/2017 PINA LEARY ABE L Ot E78.5 HYPERLIPIDEMIA, UNSPECIFIED 10/21/2017 ALESSANDRO MARTINEZ DO P Ot M47.812 SPONDYLOSIS W/O MYELOPATHY OR RADICULOPA 10/21/2017 ALESSANDRO MARTINEZ DO P Ot M50.20 OTHER CERVICAL DISC DISPLACEMENT, [facility] C 10/21/2017 NEHA ROSENBERG WATCH TECHNICIAN Ot C34.90 MALIGNANT NEOPLASM OF [facility] PART OF [facility] 10/21/2017 NEHA ROSENBERG WATCH TECHNICIAN Ot F17.210 NICOTINE DEPENDENCE, CIGARETTES, UNCOMPL 10/21/2017 NEHA ROSENBERG WATCH TECHNICIAN Ot J44.9 CHRONIC OBSTRUCTIVE PULMONARY DISEASE, U 10/21/2017 NEHA ROSENBERG WATCH TECHNICIAN Ot R91.1 SOLITARY PULMONARY NODULE 10/21/2017 CONNIE ÁLVAREZ SAVINGS COUNSELOR Ot I48.0 PAROXYSMAL ATRIAL FIBRILLATION 10/21/2017 CONNIE ÁLVAREZ SAVINGS COUNSELOR Ot J44.9 CHRONIC OBSTRUCTIVE PULMONARY DISEASE, U 10/21/2017 CONNIE ÁLVAREZ SAVINGS COUNSELOR Ot R06.09 OTHER FORMS OF DYSPNEA 10/21/2017 CONNIE ÁLVAREZ L SAVINGS COUNSELOR Ot R07.9 CHEST PAIN, UNSPECIFIED 10/21/2017 WILBERTO SUMMERS FACC, GIBRAN FACP CCDS Ot C34.90 [facility]IGNANT [facility] PART OF [facility] 10/21/2017 WILBERTO SUMMERS FACC, ALI FACP CCDS Ot I48.0 PAROXYSMAL ATRIAL FIBRILLATION 10/21/2017 WILBERTO SUMMERS FACC, ALI FACP CCDS Ot J43.8 OTHER EMPHYSEMA 10/21/2017 KEM PITTMAN MD Ot C34.90 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 10/21/2017 ZAIN SUMMERS, KEM Ot M89.8X0 OTHER SPECIFIED DISORDERS OF BONE, MULTI 10/21/2017 WILBERTO SUMMERS FACC, ALI FACP CCDS Ot I48.0 PAROXYSMAL ATRIAL FIBRILLATION 10/21/2017 WILBERTO SUMMERS FACC, ALI FACP CCDS Ot J43.8 OTHER EMPHYSEMA 10/21/2017 WILBERTO SUMMERS FACC, ALI FACP CCDS Ot R00.2 PALPITATIONS 10/21/2017 MEENAKSHI SUMMERS, KHALIDA U Ot C34.90 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 10/21/2017 BRIT ROSENBERG DO Ot F41.9 ANXIETY DISORDER, UNSPECIFIED 10/21/2017 BRIT ROSENBERG DO Ot G89.4 CHRONIC PAIN SYNDROME 10/21/2017 BRIT ROSENBERG DO Ot I48.0 PAROXYSMAL ATRIAL FIBRILLATION 10/21/2017 BRIT ROSENBERG DO Ot M47.812 SPONDYLOSIS W/O MYELOPATHY OR RADICULOPA 10/21/2017 MEENAKSHI SUMMERS, KHALIDA U Ot 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 10/21/2017 JOSEPHINE KRAMER MD Ot 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 10/21/2017 JOSEPHINE KRAMER MD Ot R91.1 SOLITARY PULMONARY NODULE 10/21/2017 Ot N88.8 OTHER SPECIFIED NONINFLAMMATORY DISORDER 10/21/2017 Ot Z12.31 ENCNTR SCREEN MAMMOGRAM FOR MALIGNANT NE 10/21/2017 JOSEPHINE KRAMER MD Ot 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 10/21/2017 JOSEPHINE KRAMER MD Ot R91.1 SOLITARY PULMONARY NODULE 10/21/2017 JOSEPHINE KRAMER MD Ot 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] 10/21/2017 BRIT ROSENBERG DO Ot K59.00 CONSTIPATION, UNSPECIFIED 10/21/2017 ROSENBERG DO, BRIT M Ot R53.83 OTHER FATIGUE 10/21/2017 BRIT ROSENBERG DO M Ot Z11.59 ENCOUNTER FOR SCREENING FOR OTHER VIRAL 10/21/2017 EDU GUPTA MD Ot C34.90 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 10/21/2017 EDU GUPTA MD Ot J43.9 EMPHYSEMA, UNSPECIFIED 10/21/2017 EDU GUPTA MD Ot R92.8 OTH ABN AND INCONCLUSIVE FINDINGS ON DX 10/21/2017 WILBERTO SUMMERS FACC, ALI FACP CCDS Ot I48.0 PAROXYSMAL ATRIAL FIBRILLATION 10/21/2017 WILBERTO SUMMERS FACC, ALI FACP CCDS Ot J43.8 OTHER EMPHYSEMA 10/21/2017 WILBERTO SUMMERS FACC, ALI FACP CCDS Ot R00.2 PALPITATIONS 10/21/2017 WILBERTO SUMMERS FACC, ALI FACP CCDS Ot R06.09 OTHER FORMS OF DYSPNEA 10/21/2017 WILBERTO SUMMERS FACC, ALI FACP CCDS Ot Z72.0 TOBACCO USE 10/21/2017 WILBERTO SUMMERS FACC, ALI FACP CCDS Ot Z85.118 PERSONAL HISTORY OF MALIGNANT NEOPLASM O 10/21/2017 MEENAKSHI SUMMERS, KHALIDA U Ot 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 10/21/2017 MEENAKSHI SUMMERS, KHALIDA U Ot R91.1 SOLITARY PULMONARY NODULE 10/21/2017 MEENAKSHI SUMMERS, KHALIDA U Ot 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] 10/21/2017 MEENAKSHI SUMMERS, ATMCRISTIANA U Ot 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, LEFT B 10/21/2017 ANGELO KRAMER MDID S Ot C34.2 MALIGNANT NEOPLASM OF MIDDLE LOBE, BRONC 10/21/2017 JOSEPHINE KRAMER MD S Ot 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, UNSPECIFIED ORGANISM 10/21/2017 JOSEPHINE KRAMER MD S Ot J30.9 ALLERGIC RHINITIS, UNSPECIFIED 10/21/2017 JOSEPHINE KRAMER MD S Ot J44.1 CHRONIC OBSTRUCTIVE PULMONARY DISEASE W 10/21/2017 JOSEPHINE KRAMER MD S Ot 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] 10/30/2017 JOSEPHINE KRAMER 491.20 OBSTRUCTIVE CHRONIC BRONCHITIS, WITHOUT EXACERBATION 10/30/2017 JOSEPHINE KRAMER J44.9 CHRONIC OBSTRUCTIVE PULMONARY DISEASE, UNSPECIFIED 11/06/2017 WILBERTO SUMMERS FACC, ALI FACP CCDS Ot E66.9 OBESITY, UNSPECIFIED 11/06/2017 WILBERTO SUMMERS FACC, ALI FACP CCDS Ot I48.0 PAROXYSMAL ATRIAL FIBRILLATION 11/06/2017 WILBERTO SUMMERS FACC, ALI FACP CCDS Ot J44.9 CHRONIC OBSTRUCTIVE PULMONARY DISEASE, U 11/06/2017 WILBERTO SUMMERS FACJose, ALI FACP CCDS Ot R00.2 PALPITATIONS 11/06/2017 WILBERTO SUMMERS FACC, ALI FACP CCDS Ot R06.02 SHORTNESS OF BREATH 11/06/2017 WILBERTO SUMMERS FACC, ALI FACP CCDS Ot Z72.0 TOBACCO USE 11/14/2017 VIVIAN BARRERA APRN Ot E78.00 PURE HYPERCHOLESTEROLEMIA, UNSPECIFIED 11/14/2017 VIVIAN BARRERA APRN Ot F17.210 NICOTINE DEPENDENCE, CIGARETTES, UNCOMPL 11/14/2017 VIVIAN BARRERA APRN Ot F32.9 MAJOR DEPRESSIVE DISORDER, SINGLE EPISOD 11/14/2017 VIVIAN BARRERA APRN Ot F41.9 ANXIETY DISORDER, UNSPECIFIED 11/14/2017 VIVIAN BARRERA APRN Ot I48.91 UNSPECIFIED ATRIAL FIBRILLATION 11/14/2017 VIVIAN BARRERA APRN Ot J44.9 CHRONIC OBSTRUCTIVE PULMONARY DISEASE, U 11/14/2017 VIVIAN BARRERA APRN Ot K21.9 GASTRO-ESOPHAGEAL REFLUX DISEASE WITHOUT 11/14/2017 VIVIAN BARRERA APRN Ot R53.81 OTHER MALAISE 11/14/2017 VIVIAN BARRERA APRN Ot R53.83 OTHER FATIGUE 11/14/2017 VIVIAN BARRERA APRN Ot Z79.01 [facility] (CURRENT) USE OF ANTICOAGULANT 11/14/2017 VIVIAN BARRERA APRN Ot Z79.51 [employer]RA[employer] (CURRENT) USE OF INHALED STERO 11/14/2017 VIVIAN BARRERA APRN Ot Z79.52 [facility] (CURRENT) USE OF SYSTEMIC STER 11/14/2017 VIVIAN BARRERA APRN Ot Z80.1 FAMILY HISTORY OF MALIG NEOPLASM OF [place] 11/14/2017 VIVIAN BARRERA APRN Ot Z87.19 PERSONAL HISTORY OF OTHER DISEASES OF TH 11/14/2017 VIVIAN BARRERA APRN Ot Z98.1 ARTHRODESIS STATUS 11/14/2017 VIVIAN BARRERA APRN Ot Z98.51 TUBAL LIGATION STATUS 11/15/2017 MEENAKSHI SUMMERS, ATMAN U Ot 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, LEFT B 11/18/2017 VIVIAN BARRERA APRN Ot E78.00 PURE HYPERCHOLESTEROLEMIA, UNSPECIFIED 11/18/2017 VIVIAN BARRERA APRN Ot F17.210 NICOTINE DEPENDENCE, CIGARETTES, UNCOMPL 11/18/2017 VIVIAN BARRERA APRN Ot F32.9 MAJOR DEPRESSIVE DISORDER, SINGLE EPISOD 11/18/2017 VIVIAN BARRERA APRN Ot F41.9 ANXIETY DISORDER, UNSPECIFIED 11/18/2017 VIVIAN BARRERA APRN Ot I48.91 UNSPECIFIED ATRIAL FIBRILLATION 11/18/2017 VIVIAN BARRERA APRN Ot J44.9 CHRONIC OBSTRUCTIVE PULMONARY DISEASE, U 11/18/2017 VIVIAN BARRERA APRN Ot K21.9 GASTRO-ESOPHAGEAL REFLUX DISEASE WITHOUT 11/18/2017 VIVIAN BARRERA APRN Ot R53.81 OTHER MALAISE 11/18/2017 VIVIAN BARRERA APRN Ot R53.83 OTHER FATIGUE 11/18/2017 VIVIAN BARRERA APRN Ot Z79.01 [facility] (CURRENT) USE OF ANTICOAGULANT 11/18/2017 VIVIAN BARRERA APRN Ot Z79.51 [facility] (CURRENT) USE OF INHALED STERO 11/18/2017 VIVIAN BARRERA APRN Ot Z79.52 [facility] (CURRENT) USE OF SYSTEMIC STER 11/18/2017 VIVIAN BARRERA APRN Ot Z80.1 FAMILY HISTORY OF MALIG NEOPLASM OF [place] 11/18/2017 VIVIAN BARRERA APRN Ot Z87.19 PERSONAL HISTORY OF OTHER DISEASES OF TH 11/18/2017 VIVIAN BARRERA APRN Ot Z98.1 ARTHRODESIS STATUS 11/18/2017 VIVIAN BARRERA APRN Ot Z98.51 TUBAL LIGATION STATUS 11/26/2017 WILBERTO SUMMERS FACC, ALI FACP CCDS Ot E66.9 OBESITY, UNSPECIFIED 11/26/2017 WILBERTO SUMMERS FACC, ALI FACP CCDS Ot I48.0 PAROXYSMAL ATRIAL FIBRILLATION 11/26/2017 WILBERTO SUMMERS FACC, ALI FACP CCDS Ot J44.9 CHRONIC OBSTRUCTIVE PULMONARY DISEASE, U 11/26/2017 WILBERTO SUMMERS FACC, ALI FACP CCDS Ot R00.2 PALPITATIONS 11/26/2017 WILBERTO SUMMERS [facility] CCDS Ot R06.02 SHORTNESS OF BREATH 11/26/2017 WILBERTO SUMMERS [facility] CCDS Ot Z72.0 TOBACCO USE 11/27/2017 MonicaMackBrit W 780.79 OTHER MALAISE AND FATIGUE 11/27/2017 RosenbergBrit W R53.1 WEAKNESS 12/06/2017 Brit Rosenberg A 780.79 OTHER MALAISE AND FATIGUE 12/06/2017 Rosenberg Brit A R53.1 WEAKNESS 12/12/2017 BRIT ROSENBERG DO Ot M48.02 SPINAL STENOSIS, CERVICAL REGION 12/12/2017 BRIT ROSENBERG DO Ot M50.13 CERVICAL DISC DISORDER W RADICULOPATHY, 12/12/2017 BRIT ROSENBERG DO Ot M99.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 12/12/2017 BRIT ROSENBERG DO Ot Z98.1 ARTHRODESIS STATUS 12/31/2017 BRIT ROSENBERG DO Ot M48.02 SPINAL STENOSIS, CERVICAL REGION 12/31/2017 BRIT ROSENBERG DO Ot M50.13 CERVICAL DISC DISORDER W RADICULOPATHY, 12/31/2017 BRIT ROSENBERG DO M Ot M99.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 12/31/2017 BRIT ROSENBERG DO M Ot Z98.1 ARTHRODESIS STATUS 01/02/2018 YOMI BRIGGS DO Ot Z01.818 ENCOUNTER FOR OTHER PREPROCEDURAL EXAMIN 01/07/2018 BRIT ROSENBERG DO Ot M48.02 SPINAL STENOSIS, CERVICAL REGION 01/07/2018 BRIT ROSENBERG DO Ot M50.13 CERVICAL DISC DISORDER W RADICULOPATHY, 01/07/2018 BRIT ROSENBERG DO M Ot M99.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 01/07/2018 BRIT ROSENBERG DO Ot Z98.1 ARTHRODESIS STATUS 02/14/2018 CJ SUMMERS, LISANDRA Novak Ot Z01.818 ENCOUNTER FOR OTHER PREPROCEDURAL EXAMIN 02/17/2018 LISANDRA CORONA MD Ot Z01.818 ENCOUNTER FOR OTHER PREPROCEDURAL EXAMIN 02/17/2018 LISANDRA CORONA MD Ot Z01.818 ENCOUNTER FOR OTHER PREPROCEDURAL EXAMIN 02/18/2018 LISANDRA CORONA MD Ot F17.210 NICOTINE DEPENDENCE, CIGARETTES, UNCOMPL 02/18/2018 LISANDRA CORONA MD Ot I48.91 UNSPECIFIED ATRIAL FIBRILLATION 02/18/2018 LISANDRA CORONA MD Ot J44.9 CHRONIC OBSTRUCTIVE PULMONARY DISEASE, U 02/18/2018 CJ SUMMERS, LISANDRA Novak Ot J45.909 UNSPECIFIED ASTHMA, UNCOMPLICATED 02/18/2018 LISANDRA CORONA MD Ot N32.81 OVERACTIVE BLADDER 02/18/2018 LISANDRA CORONA MD Ot N36.42 INTRINSIC SPHINCTER DEFICIENCY (ISD) 02/18/2018 LISANDRA CORONA MD Ot N39.46 MIXED INCONTINENCE 02/18/2018 LISANDRA CORONA MD Ot Z79.01 [facility] (CURRENT) USE OF ANTICOAGULANT 02/18/2018 LISANDRA CORONA MD Ot Z79.899 OTHER STEEL ENGRAVER (CURRENT) DRUG THERAPY 02/20/2018 LISANDRA CORONA MD Ot F17.210 NICOTINE DEPENDENCE, CIGARETTES, UNCOMPL 02/20/2018 LISANDRA CORONA MD Ot I48.91 UNSPECIFIED ATRIAL FIBRILLATION 02/20/2018 LISANDRA CORONA MD Ot J44.9 CHRONIC OBSTRUCTIVE PULMONARY DISEASE, U 02/20/2018 LISANDRA CORONA MD Ot J45.909 UNSPECIFIED ASTHMA, UNCOMPLICATED 02/20/2018 LISANDRA CORONA MD Ot N32.81 OVERACTIVE BLADDER 02/20/2018 LISANDRA CORONA MD Ot N36.42 INTRINSIC SPHINCTER DEFICIENCY (ISD) 02/20/2018 LISANDRA CORONA MD Ot N39.46 MIXED INCONTINENCE 02/20/2018 LISANDRA CORONA MD Ot Z79.01 [facility] (CURRENT) USE OF ANTICOAGULANT 02/20/2018 LISANDRA CORONA MD Ot Z79.899 OTHER STEEL ENGRAVER (CURRENT) DRUG THERAPY 02/20/2018 LISANDRA CORONA MD Ot F17.210 NICOTINE DEPENDENCE, CIGARETTES, UNCOMPL 02/20/2018 LISANDRA CORONA MD Ot I48.91 UNSPECIFIED ATRIAL FIBRILLATION 02/20/2018 LISANDRA CORONA MD, Ot J44.9 CHRONIC OBSTRUCTIVE PULMONARY DISEASE, U 02/20/2018 CJ SUMMERS, LISANDRA Novak Ot J45.909 UNSPECIFIED ASTHMA, UNCOMPLICATED 02/20/2018 LISANDRA CORONA MD, Ot N32.81 OVERACTIVE BLADDER 02/20/2018 LISANDRA CORONA MD, Ot N36.42 INTRINSIC SPHINCTER DEFICIENCY (ISD) 02/20/2018 LISANDRA CORONA MD, Ot N39.46 MIXED INCONTINENCE 02/20/2018 LISANDRA CORONA MD, Ot Z79.01 [facility] (CURRENT) USE OF ANTICOAGULANT 02/20/2018 LISANDRA CORONA MD, Ot Z79.899 OTHER STEEL ENGRAVER (CURRENT) DRUG THERAPY 02/23/2018 LISANDRA CORONA MD, Ot Z01.818 ENCOUNTER FOR OTHER PREPROCEDURAL EXAMIN 02/27/2018 Katrina Amie A S80.811A ABRASION, RIGHT LOWER LEG, INITIAL ENCOUNTER 03/10/2018 NIA SUMMERS, JOSEPHINE S Ot J45.50 SEVERE PERSISTENT ASTHMA, UNCOMPLICATED 03/10/2018 NIA SUMMERS, JOSEPHINE S Ot J82 PULMONARY EOSINOPHILIA, 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 03/12/2018 JUSTO MAYA Ot E78.00 PURE HYPERCHOLESTEROLEMIA, UNSPECIFIED 03/12/2018 JUSTO MAYA Ot F17.210 NICOTINE DEPENDENCE, CIGARETTES, UNCOMPL 03/12/2018 JUSTO MAYA Ot F32.9 MAJOR DEPRESSIVE DISORDER, SINGLE EPISOD 03/12/2018 JUSTO MAYA Ot F41.9 ANXIETY DISORDER, UNSPECIFIED 03/12/2018 JUSTO MAYA Ot I48.91 UNSPECIFIED ATRIAL FIBRILLATION 03/12/2018 JUSTO MAYA Ot J44.1 CHRONIC OBSTRUCTIVE PULMONARY DISEASE W 03/12/2018 JUSTO MAYA Ot K21.9 GASTRO-ESOPHAGEAL REFLUX DISEASE WITHOUT 03/12/2018 JUSTO MAYA Ot Z79.51 STEEL ENGRAVER (CURRENT) USE OF INHALED STERO 03/12/2018 JUSTO MAYA Ot Z80.1 FAMILY HISTORY OF MALIG NEOPLASM OF [place] 03/12/2018 JUSTO MAYA Ot Z85.118 PERSONAL HISTORY OF MALIGNANT NEOPLASM O 03/12/2018 JUSTO MAYA Ot Z87.19 PERSONAL HISTORY OF OTHER DISEASES OF TH 03/12/2018 JUSTO MAYA Ot 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] 03/12/2018 JUSTO MAYA Ot Z92.21 PERSONAL HISTORY OF ANTINEOPLASTIC CHEMO 03/12/2018 JUSTO MAYA Ot Z98.1 ARTHRODESIS STATUS 03/12/2018 JUSTO MAYA Ot Z98.51 TUBAL LIGATION STATUS 03/12/2018 JUSTO MAYA Ot Z99.81 DEPENDENCE ON SUPPLEMENTAL OXYGEN 03/14/2018 JUSTO MAYA Ot E78.00 PURE HYPERCHOLESTEROLEMIA, UNSPECIFIED 03/14/2018 JUSTO MAYA Ot F17.210 NICOTINE DEPENDENCE, CIGARETTES, UNCOMPL 03/14/2018 JUSTO MAYA Ot F32.9 MAJOR DEPRESSIVE DISORDER, SINGLE EPISOD 03/14/2018 JUSTO MAYA Ot F41.9 ANXIETY DISORDER, UNSPECIFIED 03/14/2018 JUSTO MAYA Ot I48.91 UNSPECIFIED ATRIAL FIBRILLATION 03/14/2018 JUSTO MAYA Ot J44.1 CHRONIC OBSTRUCTIVE PULMONARY DISEASE W 03/14/2018 JUSTO MAYA Ot K21.9 GASTRO-ESOPHAGEAL REFLUX DISEASE WITHOUT 03/14/2018 JUSTO MAYA Ot Z79.51 STEEL ENGRAVER (CURRENT) USE OF INHALED STERO 03/14/2018 JUSTO MAYA Ot Z80.1 FAMILY HISTORY OF MALIG NEOPLASM OF [place] 03/14/2018 JUSTO MAYA Ot Z85.118 PERSONAL HISTORY OF MALIGNANT NEOPLASM O 03/14/2018 JUSTO MAYA Ot Z87.19 PERSONAL HISTORY OF OTHER DISEASES OF 03/14/2018 JUSTO MAYA Ot 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] 03/14/2018 JUSTO MAYA Ot Z92.21 PERSONAL HISTORY OF ANTINEOPLASTIC CHEMO 03/14/2018 JUSTO MAYA Ot Z98.1 ARTHRODESIS STATUS 03/14/2018 JUSTO MAYA Ot Z98.51 TUBAL LIGATION STATUS 03/14/2018 JUSTO MAYA Ot Z99.81 DEPENDENCE ON SUPPLEMENTAL OXYGEN 04/14/2018 ANDIE RICHARDS DO Ot 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 04/14/2018 ANDIE RICHARDS DO Ot 305.1 TOBACCO USE DISORDER 04/14/2018 ANDIE RICHARDS DO Ot 496 CHR AIRWAY OBSTRUCT NEC 04/14/2018 ABE HELLER DO Ot 246.9 DISORDER OF THYROID NOS 04/14/2018 ABE HELLER DO Ot 272.4 HYPERLIPIDEMIA NEC/NOS 04/14/2018 ABE HELLER DO L Ot E78.5 HYPERLIPIDEMIA, UNSPECIFIED 04/14/2018 ALESSANDRO MARTINEZ DO Ot M47.812 SPONDYLOSIS W/O MYELOPATHY OR RADICULOPA 04/14/2018 ALESSANDRO MARTINEZ DO Ot M50.20 OTHER CERVICAL DISC DISPLACEMENT, UNSP C 04/14/2018 NEHA ROSENBERG WATCH TECHNICIAN Ot C34.90 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 04/14/2018 NEHA ROSENBERG WATCH TECHNICIAN Ot F17.210 NICOTINE DEPENDENCE, CIGARETTES, UNCOMPL 04/14/2018 NEHA ROSENBERG WATCH TECHNICIAN Ot J44.9 CHRONIC OBSTRUCTIVE PULMONARY DISEASE, U 04/14/2018 NEHA ROSENBERG WATCH TECHNICIAN Ot R91.1 SOLITARY PULMONARY NODULE 04/14/2018 CONNIE ÁLVAREZ SAVINGS COUNSELOR Ot I48.0 PAROXYSMAL ATRIAL FIBRILLATION 04/14/2018 CONNIE ÁLVAREZ SAVINGS COUNSELOR Ot J44.9 CHRONIC OBSTRUCTIVE PULMONARY DISEASE, U 04/14/2018 HENRI CONNIE L SAVINGS COUNSELOR Ot R06.09 OTHER FORMS OF DYSPNEA 04/14/2018 CONNIE ÁLVAREZ SAVINGS COUNSELOR Ot R07.9 CHEST PAIN, UNSPECIFIED 04/14/2018 WILBERTO KELLEYC, ALI FACP CCDS Ot C34.90 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 04/14/2018 WILBERTO SUMMERS FACC, ALI FACP CCDS Ot I48.0 PAROXYSMAL ATRIAL FIBRILLATION 04/14/2018 WILBERTO KELLEYC, ALI FACP CCDS Ot J43.8 OTHER EMPHYSEMA 04/14/2018 ZAIN SUMMERS, KEM Ot C34.90 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 04/14/2018 ZAIN SUMMERS, KEM Ot M89.8X0 OTHER SPECIFIED DISORDERS OF BONE, MULTI 04/14/2018 WILBERTO SUMMERS FACC, ALI FACP CCDS Ot I48.0 PAROXYSMAL ATRIAL FIBRILLATION 04/14/2018 WILBERTO KELLEYC, ALI FACP CCDS Ot J43.8 OTHER EMPHYSEMA 04/14/2018 WILBERTO KELLEYC, ALI FACP CCDS Ot R00.2 PALPITATIONS 04/14/2018 MEENAKSHI SUMMERS, ATMCRISTIANA U Ot C34.90 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 04/14/2018 BRIT ROSENBERG DO Ot F41.9 ANXIETY DISORDER, UNSPECIFIED 04/14/2018 MONICA LEARY BRIT Vega Ot G89.4 CHRONIC PAIN SYNDROME 04/14/2018 MONICA LEARY BRIT Gary Ot I48.0 PAROXYSMAL ATRIAL FIBRILLATION 04/14/2018 MONICA LEARY BRIT Vega Ot M47.812 SPONDYLOSIS W/O MYELOPATHY OR RADICULOPA 04/14/2018 MEENAKSHI SUMMERS, ATMCRISTIANA U Ot 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 04/14/2018 JOSEPHINE KRAMER MD S Ot 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 04/14/2018 JOSEPHINE KRAMER MD S Ot R91.1 SOLITARY PULMONARY NODULE 04/14/2018 Ot N88.8 OTHER SPECIFIED NONINFLAMMATORY DISORDER 04/14/2018 Ot Z12.31 ENCNTR SCREEN MAMMOGRAM FOR MALIGNANT NE 04/14/2018 JOSEPHINE KRAMER MD S Ot 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 04/14/2018 JOSEPHINE KRAMER MD S Ot R91.1 SOLITARY PULMONARY NODULE 04/14/2018 JOSEPHINE KRAMER MD S Ot 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] 04/14/2018 ROSENBERG DO BRIT Vega Ot K59.00 CONSTIPATION, UNSPECIFIED 04/14/2018 MONICA LEARY BRIT Gary Ot R53.83 OTHER FATIGUE 04/14/2018 MONICA LEARY BRIT Gary Ot Z11.59 ENCOUNTER FOR SCREENING FOR OTHER VIRAL 04/14/2018 CANDY SUMMERS, EDU Raza Ot C34.90 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 04/14/2018 EDU GUPTA MD Ot J43.9 EMPHYSEMA, UNSPECIFIED 04/14/2018 EDU GUPTA MD Ot R92.8 OTH ABN AND INCONCLUSIVE FINDINGS ON DX 04/14/2018 WILBERTO SUMMERS FACC, ALI FACP CCDS Ot I48.0 PAROXYSMAL ATRIAL FIBRILLATION 04/14/2018 WILBERTO SUMMERS FACC, ALI FACP CCDS Ot J43.8 OTHER EMPHYSEMA 04/14/2018 WILBERTO SUMMERS FACC, ALI FACP CCDS Ot R00.2 PALPITATIONS 04/14/2018 WILBERTO SUMMERS FACC, ALI FACP CCDS Ot R06.09 OTHER FORMS OF DYSPNEA 04/14/2018 WILBERTO SUMMERS FACC, ALI FACP CCDS Ot Z72.0 TOBACCO USE 04/14/2018 WILBERTO SUMMERS FACC, ALI FACP CCDS Ot Z85.118 PERSONAL HISTORY OF MALIGNANT NEOPLASM O 04/14/2018 MEENAKSHI SUMMERS, ATMAN U Ot 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 04/14/2018 MEENAKSHI SUMMERS, ATMAN U Ot R91.1 SOLITARY PULMONARY NODULE 04/14/2018 MEENAKSHI SUMMERS, ATMAN U Ot 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] 04/14/2018 MEENAKSHI SUMMERS, ATMAN U Ot 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, LEFT B 04/14/2018 NIA SUMMERS, JOSEPHINE S Ot C34.2 MALIGNANT NEOPLASM OF MIDDLE LOBE, BRONC 04/14/2018 NIA SUMMERS JOSEPHINE S Ot 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, UNSPECIFIED ORGANISM 04/14/2018 NIA SUMMERS JOSEPHINE S Ot J30.9 ALLERGIC RHINITIS, UNSPECIFIED 04/14/2018 NIA SUMMERS JOSEPHINE S Ot J44.1 CHRONIC OBSTRUCTIVE PULMONARY DISEASE W 04/14/2018 NIA SUMMERS, JOSEPHINE S Ot 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] 04/14/2018 WILBERTO SUMMERS FACC, ALI FACP CCDS Ot E66.9 OBESITY, UNSPECIFIED 04/14/2018 WILBERTO SUMMERS FACC, ALI FACP CCDS Ot I48.0 PAROXYSMAL ATRIAL FIBRILLATION 04/14/2018 WILBERTO SUMMERS FACC, ALI FACP CCDS Ot J44.9 CHRONIC OBSTRUCTIVE PULMONARY DISEASE, U 04/14/2018 WILBERTO SUMMERS FACC, ALI FACP CCDS Ot R00.2 PALPITATIONS 04/14/2018 WILBERTO KELLEYC, ALI FACP CCDS Ot R06.02 SHORTNESS OF BREATH 04/14/2018 WILBEROT SUMMERS FACC, ALI FACP CCDS Ot Z72.0 TOBACCO USE 04/14/2018 BRIT ROSENBERG DO Ot M48.02 SPINAL STENOSIS, CERVICAL REGION 04/14/2018 BRIT ROSENBERG DO Ot M50.13 CERVICAL DISC DISORDER W RADICULOPATHY, 04/14/2018 BRIT ROSENBERG DO Ot M99.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 04/14/2018 MONICA LEARY BRIT Vega Ot Z98.1 ARTHRODESIS STATUS 04/14/2018 YOMI BRIGGS DO Ot Z01.818 ENCOUNTER FOR OTHER PREPROCEDURAL EXAMIN 04/14/2018 JOSEPHINE KRAMER MD Ot J45.50 SEVERE PERSISTENT ASTHMA, UNCOMPLICATED 04/14/2018 JOSEPHINE KRAMER MD Ot J82 PULMONARY EOSINOPHILIA, 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 04/14/2018 OTHER, UNLISTED Ot G47.33 OBSTRUCTIVE SLEEP APNEA (ADULT) (PEDIATR 04/15/2018 BRIT ROSENBERG DO Ot G89.4 CHRONIC PAIN SYNDROME 04/15/2018 BRIT ROSENBERG DO Ot R20.0 ANESTHESIA OF SKIN 04/15/2018 BRIT ROSENBERG DO Ot R25.1 TREMOR, UNSPECIFIED 04/15/2018 BRIT ROSENBERG DO Ot R25.3 FASCICULATION 04/15/2018 BRIT ROSENBERG DO Ot R27.0 ATAXIA, UNSPECIFIED 04/15/2018 BRIT ROSENBERG DO Ot R51 HEADACHE 04/15/2018 BRIT ROSENBERG DO Ot Z85.118 PERSONAL HISTORY OF MALIGNANT NEOPLASM O 04/20/2018 KERI PRINGLE W 466.0 ACUTE BRONCHITIS 04/20/2018 KERI PRINGLE A 491.22 OBSTRUCTIVE CHRONIC BRONCHITIS WITH ACUTE BRONCHITIS 04/20/2018 KERI PRINGLE W 784.0 HEADACHE 04/20/2018 KERI PRINGLE J20.9 ACUTE BRONCHITIS, UNSPECIFIED 04/20/2018 KERI PRINGLE A J44.0 CHRONIC OBSTRUCTIVE PULMON DISEASE W ACUTE LOWER RESP INFCT 04/20/2018 KERI PRINGLE W R51 HEADACHE 04/25/2018 JOSEPHINE KRAMER MD S Ot J45.50 SEVERE PERSISTENT ASTHMA, UNCOMPLICATED 04/25/2018 JOSEPHINE KRAMER MD S Ot J82 PULMONARY EOSINOPHILIA, 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 04/25/2018 JOSEPHINE KRAMER MD S Ot J45.50 SEVERE PERSISTENT ASTHMA, UNCOMPLICATED 04/25/2018 JOSEPHINE KRAMER MD S Ot J82 PULMONARY EOSINOPHILIA, 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 05/14/2018 YOMI BRIGGS DO Ot D25.9 LEIOMYOMA OF UTERUS, UNSPECIFIED 05/14/2018 YOIM BRIGGS DO Ot N95.0 POSTMENOPAUSAL BLEEDING 05/14/2018 BRIT ROSENBERG DO Ot G89.4 CHRONIC PAIN SYNDROME 05/14/2018 BRIT ROSENBERG DO Ot R20.0 ANESTHESIA OF SKIN 05/14/2018 BRIT ROSENBERG DO Ot R25.1 TREMOR, UNSPECIFIED 05/14/2018 BRIT ROSENBERG DO Ot R25.3 FASCICULATION 05/14/2018 BRIT ROSENBERG DO Ot R27.0 ATAXIA, UNSPECIFIED 05/14/2018 BRIT ROSENBERG DO Ot R51 HEADACHE 05/14/2018 BRIT ROSENBERG DO Ot Z85.118 PERSONAL HISTORY OF MALIGNANT NEOPLASM O Procedures Code [place] [address] PSYCH DIAGNOSTIC EVALUATION 10/12/2013 Results Test Result Range [...] INFLUENZA A AND B ANTIGENS BY IA [facility] IFOBT Occult Blood - 08/20/16 14:08 IFOBT Occult Blood NEGATIVE Negative Methicillin resistant Staphylococcus aureus (MRSA) screening culture - 14:52 Methicillin resistant Staphylococcus aureus (MRSA) screening culture NEG [facility] Complete urinalysis with reflex to culture - [...] (T4) free measurement (mass/volume) 1.10 ng/dL 0.70-1.48 [id number] - 01/17/17 11:24 Screening antinuclear antibody (CHRISTOPHER) assay by enzyme immunoassay Positive <1:80 Anaplasma phagocytophilum IgG ab [titer] in serum <1: 80 Serum nuclear antibody pattern interpretation Homogeneous NRG Acute hepatitis panel - 01/17/17 11:24 Confirmatory [...] 06/13/17 11:17 GRAM STAIN SPUTUM NEGATIVE COCCOBACILLI NR Bacterial sputum culture - 06/13/17 11:17 FREE TEXT EXTERNAL PLUS ABUNDANT NORMAL CONRAD NRG QUANTITY OF GROWTH Scant Growth NR Bacterial sputum culture [id number] [facility] Bacterial susceptibility panel - 06/13/17 11:17 Gentamicin [...] PLUS NORMAL CONRAD NRG Bacterial sputum culture [id number] NRG Complete blood count (CBC) with automated [...] NEGATIVE NRG QUANTITY OF GROWTH Abundant Growth NRG FREE TEXT ENTRY 2 PLUS NORMAL CONRAD NRG Bacterial sputum culture [id number] NR Lipid 1996 panel - 07/25/17 05:25 Serum [...] - 07/26/17 06:22 Magnesium 1.7 mg/dL 1.8-2.4 Cardiac Panel - 09/16/17 17:49 CK 65 U/L 26-174 CK-MB 0.8 ng/ml 0.0-9.2 Myoglobin 21.5 ng/ml 1.6-106.0 Troponin <0.020 ng/mL 0.0-0.4 Comprehensive Metabolic Panel - 09/20/17 12:15 Albumin 4.4 g/dL 3.6-5.1 ALP 77 U/L 35-130 ALT 17 U/L 6-45 Anion Gap 17 6-14 AST 13 U/L 2-40 BUN 11 mg/dL 5-25 Calcium 10.0 mg/dL 8.3-10.4 Chloride 108 mmol/L 95-114 CO2 22 mEq/L 22-33 Creat 0.75 mg/dL 0.50-1.50 eGFR 80 mL/min/1.73m2 >59 Globulin 3.6 g/dL 2.3-3.5 Glucose 111 mg/dL 70-110 Osmo 295 280-295 Potassium 3.5 mmol/L 3.5-5.3 Sodium 143 mmol/L 134-148 TBil 0.3 mg/dL 0.2-1.2 TP 8.0 g/dL 6.0-8.3 Sputum Culture - 09/20/17 14:34 PRELIM CULTURE RESULTS Abundant possible Strep [id number] to [facility] for additional testing FINAL CULTURE RESULTS Abundant Strep pneumoniae [id number] to [facility] report for NICOLETTE MEDIA PLATED Setup at 15:12 on 09/20/2017 Test Code Change - 09/20/17 14:34 Test Code Change Note Aerobic Bacterial Culture - 09/20/17 14:34 Aerobic Bacterial Culture Note VIT B-12 - 09/21/17 06:58 Vitamin B12 325.00 pg/mL 213.00-816.00 THYROID STIMULATING HORMONE - 11/14/17 13:55 THYROID STIMULATING HORMONE 0.65 u[iU]/mL 0.35-4.94 Serum or plasma thyroxine (T4) free measurement (mass/volume) - 11/14/17 13:55 Serum or plasma thyroxine (T4) free measurement (mass/volume) 1.08 ng/dL 0.70-1.48 Complete blood count (CBC) with automated white blood cell (WBC) differential - 11/14/17 14:22 Blood leukocytes automated count (number/volume) 8.5 10*3/uL 4.3-11.0 Blood erythrocytes automated count (number/volume) 4.14 10*6/uL 4.35-5.85 Venous blood hemoglobin measurement (mass/volume) 13.8 g/dL 11.5-16.0 Blood hematocrit (volume fraction) 41 % 35-52 Automated erythrocyte mean corpuscular volume 98 [foz_us] 80-99 Automated erythrocyte mean corpuscular hemoglobin (mass per erythrocyte) 33 pg 25-34 Automated erythrocyte mean corpuscular hemoglobin concentration measurement ( mass/volume) 34 g/dL 32-36 Automated erythrocyte distribution width ratio 13.9 % 10.0-14.5 Automated blood platelet count (count/volume) 266 10*3/uL 130-400 Automated blood platelet mean volume measurement 10.1 [foz_us] 7.4-10.4 Automated blood neutrophils/100 leukocytes 65 % 42-75 Automated blood lymphocytes/100 leukocytes 25 % 12-44 Blood monocytes/100 leukocytes 8 % 0-12 Automated blood eosinophils/100 leukocytes 2 % 0-10 Automated blood basophils/100 leukocytes 1 % 0-10 Blood neutrophils automated count (number/volume) 5.5 10*3 1.8-7.8 Blood lymphocytes automated count (number/volume) 2.1 10*3 1.0-4.0 Blood monocytes automated count (number/volume) 0.7 10*3 0.0-1.0 Automated eosinophil count 0.2 10*3/uL 0.0-0.3 Automated blood basophil count (count/volume) 0.0 10*3/uL 0.0-0.1 Comprehensive metabolic panel - 11/14/17 14:22 Serum or plasma sodium measurement (moles/volume) 138 mmol/L 135-145 Serum or plasma potassium measurement (moles/volume) 3.7 mmol/L 3.6-5.0 Serum or plasma chloride measurement (moles/volume) 107 mmol/L 98-107 Carbon dioxide 22 mmol/L 21-32 Serum or plasma anion gap determination (moles/volume) 9 mmol/L 5-14 Serum or plasma urea nitrogen measurement (mass/volume) 11 mg/dL 7-18 Serum or plasma creatinine measurement (mass/volume) 0.77 mg/dL 0.60-1.30 Serum or plasma urea nitrogen/creatinine mass ratio 14 NRG Serum or plasma creatinine measurement with calculation of estimated glomerular filtration rate > NRG Serum or plasma glucose measurement (mass/volume) 118 mg/dL 70-105 Serum or plasma calcium measurement (mass/volume) 9.8 mg/dL 8.5-10.1 Serum or plasma total bilirubin measurement (mass/volume) 0.3 mg/dL 0.1-1.0 Serum or plasma alkaline phosphatase measurement (enzymatic activity/volume) 66 U/L 40-136 Serum or plasma aspartate aminotransferase measurement (enzymatic activity/ volume) 17 U/L 5-34 Serum or plasma alanine aminotransferase measurement (enzymatic activity/volume ) 19 U/L 0-55 Serum or plasma protein measurement (mass/volume) 7.4 g/dL 6.4-8.2 Serum or plasma albumin measurement (mass/volume) 4.4 g/dL 3.2-4.5 Blood lactic acid measurement (moles/volume) - 11/14/17 14:30 Blood lactic acid measurement (moles/volume) 0.98 mmol/L 0.50-2.00 Bacterial blood culture - 11/14/17 14:30 Bacterial blood culture NG NRG Bacterial blood culture - 11/14/17 14:50 Bacterial blood culture NG NRG Complete urinalysis with reflex to culture - 11/14/17 15:04 Urine color determination YELLOW NRG Urine clarity [...] detection in urine sediment by light microscopy MODERATE NRG Complete urinalysis with reflex to culture NO NRG Methicillin resistant Staphylococcus aureus (MRSA) screening culture - 09:40 Methicillin resistant Staphylococcus aureus (MRSA) screening culture NEG NRG Complete blood count (CBC) with automated white blood cell (WBC) differential - 03/12/18 14:05 Blood leukocytes automated count (number/volume) 13.1 10*3/uL 4.3-11.0 Blood erythrocytes automated count (number/volume) 3.84 10*6/uL 4.35-5.85 Venous blood hemoglobin measurement (mass/volume) 12.9 g/dL 11.5-16.0 Blood hematocrit (volume fraction) 39 % 35-52 Automated erythrocyte mean corpuscular volume 100 [foz_us] 80-99 Automated erythrocyte mean corpuscular hemoglobin (mass per erythrocyte) 34 pg 25-34 Automated erythrocyte mean corpuscular hemoglobin concentration measurement ( mass/volume) 34 g/dL 32-36 Automated erythrocyte distribution width ratio 16.5 % 10.0-14.5 Automated blood platelet count (count/volume) 299 10*3/uL 130-400 Automated blood platelet mean volume measurement 10.4 [foz_us] 7.4-10.4 Automated blood neutrophils/100 leukocytes 89 % 42-75 Automated blood lymphocytes/100 leukocytes 8 % 12-44 Blood monocytes/100 leukocytes 3 % 0-12 Automated blood eosinophils/100 leukocytes 0 % 0-10 Automated blood basophils/100 leukocytes 0 % 0-10 Blood neutrophils automated count (number/volume) 11.6 10*3 1.8-7.8 Blood lymphocytes automated count (number/volume) 1.1 10*3 1.0-4.0 Blood monocytes automated count (number/volume) 0.4 10*3 0.0-1.0 Automated eosinophil count 0.0 10*3/uL 0.0-0.3 Automated blood basophil count (count/volume) 0.0 10*3/uL 0.0-0.1 Comprehensive metabolic panel - 03/12/18 14:05 Serum or plasma sodium measurement (moles/volume) 141 mmol/L 135-145 Serum or plasma potassium measurement (moles/volume) 3.5 mmol/L 3.6-5.0 Serum or plasma chloride measurement (moles/volume) 106 mmol/L 98-107 Carbon dioxide 26 mmol/L 21-32 Serum or plasma anion gap determination (moles/volume) 9 mmol/L 5-14 Serum or plasma urea nitrogen measurement (mass/volume) 14 mg/dL 7-18 Serum or plasma creatinine measurement (mass/volume) 0.74 mg/dL 0.60-1.30 Serum or plasma urea nitrogen/creatinine mass ratio 19 NRG Serum or plasma creatinine measurement with calculation of estimated glomerular filtration rate > NRG Serum or plasma glucose measurement (mass/volume) 134 mg/dL 70-105 Serum or plasma calcium measurement (mass/volume) 9.6 mg/dL 8.5-10.1 Serum or plasma total bilirubin measurement (mass/volume) 0.5 mg/dL 0.1-1.0 Serum or plasma alkaline phosphatase measurement (enzymatic activity/volume) 61 U/L 40-136 Serum or plasma aspartate aminotransferase measurement (enzymatic activity/ volume) 11 U/L 5-34 Serum or plasma alanine aminotransferase measurement (enzymatic activity/volume ) 21 U/L 0-55 Serum or plasma protein measurement (mass/volume) 7.0 g/dL 6.4-8.2 Serum or plasma albumin measurement (mass/volume) 4.2 g/dL 3.2-4.5 Blood manual differential performed detection - 03/12/18 14:05 Blood monocytes/100 leukocytes 3 % NRG Manual blood segmented neutrophils/100 leukocytes 88 % NRG Blood band neutrophils/100 leukocytes 1 % NRG Manual blood lymphocytes/100 leukocytes 8 % NRG Manual eosinophils/100 leukocytes in nose 0 % NRG Manual blood basophils/100 leukocytes 0 % NRG Blood erythrocyte morphology finding identification NORMAL NRG Sed Rate - 04/20/18 17:10 Sed Rate 25 mm/hr 9-15 Blood Culture - 04/20/18 17:10 PRELIM CULTURE RESULTS Blood Culture Negative, No Growth Day 1 FINAL CULTURE RESULTS Blood Culture Negative, No Growth Day 5 MEDIA PLATED Setup at 17:23 on 04/20/2018 Blood Culture Media Position C48 CULTURE SOURCE Left AC IV Start Blood Culture - 04/20/18 17:15 PRELIM CULTURE RESULTS Blood Culture Negative, No Growth Day 1 FINAL CULTURE RESULTS Blood Culture Negative, No Growth Day 5 MEDIA PLATED Setup at 17:23 on 04/20/2018 Blood Culture Media Position C41 CULTURE SOURCE Right AC Urinalysis - 04/20/18 19:40 Icotest N/A Negative Urine Volume Urine Volume Sufficient (10mL) Urine Yeast No Yeast present Urine-Appearance Slightly Cloudy Clear Urine-Bacteria 1+ Urine-Bilirubin Negative Negative Urine-Blood 3+ Negative Urine-Color Yellow Colorless-Lt. Yellow Urine-Epithelial Cells TNTC Urine-Glucose Negative Negative Urine-Ketones Negative Negative Urine-Leukocytes Negative Negative Urine-Mucus 1+ Urine-Nitrite Negative Negative Urine-Other Urine Saved if Culture Needed (48hrs from time of collection) Urine-pH 6.0 5-8.5 Urine-Protein 1+ Negative Urine-RBC 5-10/HPF Urine-Specific [place] 1.020 1.000-1.030 Urine-WBC 2-5/HPF Urobilinogen 0.2 0.2-1.0 Encounters ACCT No. Visit Date/Time Discharge Status Pt. Type Provider Facility Loc./Unit Complaint [id number] 10/12/2013 08:56:00 10/12/2013 23:59:59 CLS Outpatient YURIY ACHARYA [id number] 06/03/2015 09:59:56 ACT Document Registration [id number] 12/13/2017 10:00:00 12/13/2017 23:59:59 CLS Outpatient JOSEY CERRATO [facility] [id number] 05/13/2018 10:06:00 05/13/2018 23:59:59 CLS Outpatient YOMI BRIGGS DO [facility] RAD POST MENOPAUSAL BLEEDING [id number] 04/25/2018 12:59:00 04/25/2018 23:59:59 CLS Outpatient JOSEPHINE KRAMER MD [facility] EOSINOPHILIC ASTHMA [id number] 04/14/2018 09:31:00 04/14/2018 23:59:59 CLS Outpatient BRIT ROSENBERG DO [facility] RAD ATAXIA,MUSCLE TWITCH, FACIAL NUMBNESS [id number] 03/12/2018 13:37:00 03/12/2018 17:53:00 DIS Emergency BERNOT, JUSTO [facility] ER SOA [id number] 02/27/2018 16:09:00 02/27/2018 23:59:59 CLS Preadmit OTHER, UNLISTED [facility] SLEEP EXCESSIVE DAYTIME SLEEPINESS [id number] 02/18/2018 06:37:00 02/18/2018 10:20:00 DIS Outpatient LISANDRA CORONA MD [facility] ISD/STRESS URINARY INCONT. [id number] 02/17/2018 09:15:00 02/17/2018 09:45:00 DIS Outpatient LISANDRA CORONA MD [facility] PREOP MACROPLASTIQUE WITH CYSTOSCOPY [id number] 01/07/2018 08:00:00 01/07/2018 23:59:59 CLS Preadmit YOMI BRIGGS DO [facility] ABNORMAL PET SCAN,POST MENOPAUSAL BLEEDING [id number] 01/02/2018 05:57:00 01/02/2018 23:59:59 CLS Outpatient YOMI BRIGGS DO [facility] PREOP ABNORMAL PET SCAN, POST MENOPAUSAL BLEEDING [id number] 12/11/2017 11:46:00 12/11/2017 23:59:59 CLS Outpatient BRIT ROSENBERG DO [facility] RAD CERVICAL RADICULOPATHY [id number] 11/14/2017 14:14:00 11/14/2017 16:22:00 DIS Emergency VIVIAN BARRERA WATCH TECHNICIAN [facility] ER SOB,TACH [id number] 11/05/2017 08:05:00 11/05/2017 23:59:59 CLS Outpatient WILBERTO SUMMERS FACC, GIBRAN HANLEY CCDS [facility] CARD R06.02 SOB [id number] 09/13/2017 11:52:00 09/13/2017 13:11:00 DIS Emergency BAM LOPEZ [facility] ER RT EYE ISSUES [id number] 09/12/2017 00:35:00 09/12/2017 23:59:59 CLS Preadmit JOSEPHINE KRAMER MD [facility] BRONCHOPNEUUMONIA [id number] 06/27/2017 15:55:00 09/11/2017 00:01:00 DIS Outpatient JOSEPHINE KRAMER MD [facility] BRONCHOPNEUUMONIA [id number] 09/03/2017 13:13:00 09/03/2017 23:59:59 CLS Outpatient KHALIDA ARRIETA MD [facility] RAD LUNG CA [id number] 08/15/2017 13:00:00 08/15/2017 23:59:59 CLS Preadmit JOSEPHINE KRAMER MD [facility] EOSINOPHILIC ASTHMA [id number] 08/09/2017 12:33:00 08/09/2017 23:59:59 CLS Outpatient KHALIDA ARRIETA MD [facility] RAD LUNG CANCER C34.90 [id number] 07/31/2017 11:15:00 07/31/2017 23:59:59 CLS Preadmit KHALIDA ARRIETA MD [facility] RAD LUNG CANCER [id number] 07/24/2017 14:42:00 07/26/2017 11:55:00 DIS Inpatient JOSE DANIEL BARCENAS DO [facility] 4TH PNA LLL,SEPSIS,COPD EXACERBATION [id number] 07/16/2017 10:41:00 07/16/2017 23:59:59 CLS Outpatient WILBERTO SUMMERS FACC, ALI FACP CCDS [facility] CARD RO6.09 GUAN I48.0 PAF [id number] 07/09/2017 12:53:00 07/09/2017 14:36:00 DIS Emergency VIVIAN BARRERA APRN [facility] ER SOB,TACHYCARDIA [id number] 07/05/2017 12:19:00 07/05/2017 13:55:00 DIS Emergency JERMAN SUMMERS, SIDRA Morrow [facility] ER SOA [id number] 06/20/2017 08:00:00 06/20/2017 23:59:59 CLS Preadmit WILBERTO SUMMERS FAC, ALI FACP CCDS [facility] CARD R06.09 GUAN I48.0 PAF [id number] 05/15/2017 09:38:00 05/15/2017 23:59:59 CLS Outpatient EDU GUPTA MD [facility] RAD LUNG CA [id number] 01/30/2017 08:57:00 01/30/2017 23:59:59 CLS Outpatient JOSEPHINE KRAMER MD [facility] RAD LUNG CA C34.90 [id number] 01/17/2017 11:12:00 01/17/2017 23:59:59 CLS Outpatient ROSENBERG DO BRIT Vega [facility] LAB R53.83,K59.00,Z11.59 [id number] 12/21/2016 11:07:00 12/21/2016 14:25:00 DIS Emergency VIVIAN BARRERA APRN [facility] ER CHEST PRESSURE/PAIN [id number] 12/13/2016 07:14:00 12/13/2016 23:59:59 CLS Preadmit JOSEPHINE KRAMER MD [facility] RT J44.1 [id number] 12/13/2016 07:12:00 12/13/2016 23:59:59 CLS Preadmit NIA SUMMERS, JOSEPHINE Valverde [facility] RAD C34.90 [id number] 12/03/2016 06:29:00 12/03/2016 10:40:00 DIS Outpatient CORINA SUMMERS, LAKESHIA Dewitt [facility] SDC POST MENOPAUSAL THICKENED ENDOMATRIUM, HX LUNG CA, [id number] 11/29/2016 14:32:00 11/29/2016 14:55:00 DIS Outpatient CORINA SUMMERS, LAKESHIA Dewitt [facility] PREOP HYSTEROSCOPY, D C [id number] 10/23/2016 12:06:00 10/23/2016 23:59:59 CLS Outpatient JOSEPHINE KRAMER MD [facility] RAD LUNG CA, LUNG NODULE [id number] 09/12/2016 12:23:00 09/12/2016 23:59:59 CLS Outpatient MEENAKSHI SUMMERS, KHALIDA U [facility] RAD LUNG CA [id number] 08/14/2016 12:41:00 08/14/2016 15:23:00 DIS Emergency JERMAN SUMMERS, SIDRA Morrow [facility] ER COUGH/CHEST CONGESTION [id number] 06/04/2016 11:40:00 06/04/2016 23:59:59 CLS Outpatient BRIT ROSENBERG DO [facility] LAB CHRONIC PAIN SYNDROME , CERIVCAL SPONDYLOSIS W/O MY [id number] 05/15/2016 10:31:00 05/15/2016 23:59:59 CLS Outpatient MEENAKSHI SUMMERS, ATMCRISTIANA U [facility] RAD LUNG CANCER [id number] 05/01/2016 11:27:00 05/01/2016 23:59:59 CLS Outpatient KEM PITTMAN MD [facility] CARD LUNG CA,OTHER SPECIFIED DISORDERS OF BONE [id number] 04/25/2016 13:14:00 04/25/2016 23:59:59 CLS Outpatient WILBERTO SUMMERS FACC, GIBRAN HANLEY CCDS [facility] CARD PAF,LUNG CANCER,COPD,PALPITATIONS [id number] 03/28/2016 14:47:00 03/28/2016 17:32:00 DIS Emergency VIVIAN BARRERA WATCH TECHNICIAN [facility] ER UPPER ABD/CHEST PAIN [id number] 03/22/2016 14:29:00 03/22/2016 23:59:59 CLS Outpatient WILBERTO SUMMERS FACC, GIBRAN HANLEY CCDS [facility] LAB PAF, CA, COPD [id number] 11/14/2015 08:34:00 11/14/2015 11:30:00 DIS Outpatient PARAM MA MD [facility] SDC DIARRHEA, UPPER GASTRIC PAIN, GERD [id number] 11/10/2015 05:42:00 11/10/2015 16:02:00 DIS Outpatient PARAM MA MD [facility] PREOP DIARRHEA, UPPER GASTRIC PAIN, GERD [id number] 10/13/2015 12:08:00 10/13/2015 15:18:00 DIS Emergency NA NASH MD [facility] ER DIARRHEA [id number] 09/29/2015 12:42:00 09/29/2015 23:59:59 CLS Outpatient NEHA ROSENBERG APRN [facility] RAD COPD [id number] 09/28/2015 13:22:00 09/28/2015 23:59:59 CLS Outpatient CONNIE ÁLVAREZ SAVINGS COUNSELOR [facility] LAB CHEST PAIN, COPD, PAF , GUAN [id number] 07/13/2015 18:37:00 07/13/2015 20:11:00 DIS Emergency VIVIAN BARRERA WATCH TECHNICIAN [facility] ER CHILLS,BODY ACHES, CHEST/ HEAD COLD [id number] 07/11/2015 13:55:00 07/11/2015 23:59:59 CLS Outpatient ALESSANDRO MARTINEZ DO [facility] RAD DDD, STENOSIS [id number] 06/03/2015 09:58:00 06/03/2015 23:59:59 CLS Outpatient ABE HELLER DO [facility] LAB HYPERLIPIDEMIA [id number] 05/23/2015 17:15:00 05/23/2015 23:59:59 CLS Outpatient ABE HELLER DO [facility] LAB HYPERLIPIDEMIA [id number] 04/06/2015 08:47:00 04/06/2015 23:59:59 CLS Outpatient ANDIE RICHARDS DO [facility] RT COPD CANCER OF LUNG TOBACCO USER [id number] 04/03/2015 21:14:00 04/04/2015 06:30:00 DIS Outpatient ANDIE RICHARDS DO [facility] SLEEP SNORING ARRHYTHMIAS ISCHEMIC HEART DISEASE MORNING [id number] 11/04/2014 15:36:00 11/25/2014 09:47:00 DIS Outpatient MUKESH NEWELL MD [facility] REHAB NECK PAIN;C6-C7 FUSION;THORACIC PAIN [id number] 11/01/2016 10:15:00 Document Registration [id number] 10/04/2014 13:45:00 Document Registration [id number] 10/04/2014 13:45:00 Document Registration [id number] 10/04/2014 13:45:00 Document Registration [id number] 07/13/2010 00:00:00 Document Registration [id number] 06/02/2010 12:20:00 Document Registration [id number] 05/11/2010 08:26:00 Document Registration [id number] 05/05/2010 09:05:00 Document Registration [id number] 04/13/2010 15:06:00 Document Registration [id number] 02/23/2010 14:14:00 Document Registration [id number] 02/06/2010 10:29:00 Document Registration [id number] 01/16/2010 13:11:00 Document Registration [id number] 01/10/2010 09:26:00 Document Registration [id number] 12/28/2009 11:32:00 Document Registration [id number] 12/21/2009 08:57:00 Document Registration [id number] 12/19/2009 12:54:00 Document Registration [id number] 12/15/2009 11:38:00 Document Registration [id number] 11/17/2009 12:55:00 Document Registration [id number] 05/06/2018 16:00:00 05/06/2018 23:59:00 DIS Outpatient Brit Rosenberg [id number] 04/20/2018 16:24:00 04/20/2018 19:25:00 DIS Outpatient RUIZLUCEROERIKA [facility] ER [id number] 02/27/2018 12:11:00 02/27/2018 13:15:00 DIS Outpatient Amie Herndon [id number] 02/20/2018 16:08:00 02/20/2018 23:59:00 DIS Outpatient Brit Rosenberg [id number] 11/26/2017 09:46:00 12/06/2017 11:30:00 DIS Outpatient Brit Rosenberg [id number] 10/18/2017 15:35:00 10/30/2017 16:25:00 DIS Outpatient JOSEPHINE KRAMER [id number] 09/20/2017 11:35:00 09/22/2017 09:30:00 DIS Inpatient Kavon [facility] MED-SURG [id number] 09/16/2017 17:08:00 09/16/2017 19:03:00 [id number]2017 20:24:00 06/26/2017 22:15:00 DIS Outpatient Bubba Santillan [id number] 06/24/2017 18:09:00 06/24/2017 19:57:00 DIS Outpatient Bubba Santillan [id number] 06/23/2017 14:42:00 06/23/2017 16:55:00 DIS Outpatient Bubba Santillan [id number] 06/22/2017 14:19:00 06/22/2017 15:48:00 DIS Outpatient Bubba Santillan [id number] 06/21/2017 16:24:00 06/21/2017 18:12:00 DIS Outpatient Bubba Santillan [id number] 05/13/2017 10:53:00 05/13/2017 23:59:00 DIS Outpatient Julio C Sloan [id number] 05/13/2017 11:25:00 05/13/2017 13:06:00 [id number] 07/23/2016 11:52:00 08/29/2016 15:26:00 DIS Outpatient Bubba Santillan [id number] 08/20/2016 12:34:00 08/20/2016 16:00:[id number] 07/17/2016 13:38:00 07/17/2016 23:59:00 DIS Outpatient JOSEPHINE KRAMER [id number] 07/05/2016 15:17:00 07/05/2016 15:17:00 CAN Outpatient JOSEPHINE KRAMER [id number] 06/25/2017 15:27:32 Document Registration [id number] 08/20/2016 14:14:13 Document Registration [id number] 09/26/2017 14:18:00 Document Registration
--- NOTE | 2018-05-26 15:20 | ED GI ---
General Stated Complaint: SOB;LUNG PAIN;R ARM PAIN Source of Information: Patient Exam Limitations: No Limitations History of Present Illness Date Seen by Provider: May 26, 2018 Time Seen by Provider: 15:18 Initial Comments To ER with reports of pain with deep breathing, right lower chest/upper abdominal pain that radiates through to her back. This is been present for 2 weeks despite her hydrocodone 10/325. She states that at the onset of this she did have a fever and she was seen at the [facility] [place] emergency room. Timing/Duration: Other Severity/Quality: Moderate Location: RUQ Radiation: No Radiation Activities at Onset: None Allergies and Home Medications Allergies Coded Allergies: No Known Drug Allergies (Verified , 07/24/17) Home Medications Acetylcysteine 600 Mg Capsule, 600 MG PO DAILY PRN for CONGESTION, (Reported) Albuterol Sulfate 18 Gm Hfa.aer.ad, 2 PUFF INH Q4H PRN for SHORTNESS OF BREATH, (Reported) Calcium Carbonate/Vitamin D3 1 Each Tablet, 1 EACH PO DAILY, (Reported) Cholecalciferol (Vitamin D3) 1,000 Unit Capsule, 1,000 UNIT PO DAILY, (Reported) Cyanocobalamin (Vitamin B-12) 250 Mcg Tablet, 250 MCG PO DAILY, (Reported) Dexlansoprazole 60 Mg Cap.dr.bp, 60 MG PO DAILY, (Reported) Diazepam 5 Mg Tablet, 5 MG PO BID PRN for ANXIETY, (Reported) Diltiazem HCl 240 Mg Cap.er.24h, 240 MG PO DAILY, (Reported) Estradiol 0.5 Mg Tablet, 0.5 MG PO DAILY, (Reported) Fexofenadine HCl 180 Mg Tablet, 180 MG PO DAILY, (Reported) Fluoxetine HCl 10 Mg Capsule, 10 MG PO DAILY, (Reported) Fluticasone Propionate 16 Gm Leonore.susp, 2 SPRAY NS DAILY, (Reported) Hydrocodone/Acetaminophen 1 Each Tablet, 1 EACH PO Q6H PRN for PAIN-MILD TO MODERATE, (Reported) Ipratropium/Albuterol Sulfate 3 Ml Ampul.neb, 3 ML IH Q4H PRN for SHORTNESS OF BREATH, (Reported) Medroxyprogesterone Acetate 5 Mg Tablet, 5 MG PO DAILY, (Reported) Mometasone/Formoterol 13 Gm Hfa.aer.ad, 2 PUFF INH BID, (Reported) Montelukast Sodium 10 Mg Tablet, 10 MG PO HS, (Reported) Nitrofurantoin Monohyd/M-Cryst 100 Mg Capsule, 1 TAB PO BID WITH MEALS Prescribed by: LEISA LOYA on 02/18/18858 Ondansetron 4 Mg Tab.rapdis, 4 MG PO Q4H PRN for NAUSEA/VOMITING, (Reported) Phenazopyridine HCl 200 Mg Tablet, 1 TAB PO TID Prescribed by: LEISA LOYA on 02/18/18858 Pravastatin Sodium 40 Mg Tablet, 40 MG PO HS, (Reported) Roflumilast 500 Mcg Tablet, 500 MCG PO DAILY, (Reported) Sucralfate 1 Gm/10 Ml Oral.susp, 10 ML PO QID PRN for STOMACH UPSET, (Reported) Umeclidinium [place] 62.5 Mcg Blst.w.dev, 62.5 MCG IH DAILY, (Reported) Varenicline Tartrate 1 Mg Tablet, 1 MG PO BID, (Reported) Patient Home Medication List Home Medication List Reviewed: Yes Review of Systems Review of Systems Constitutional: see HPI; No chills; fever EENTM: No Symptoms Reported Respiratory: See HPI, Cough, Shortness of Air (nonproductive pain with deep breathing) Cardiovascular: No Symptoms Reported Gastrointestinal: No Symptoms Reported Genitourinary: No Symptoms Reported Musculoskeletal: no symptoms reported Skin: no symptoms reported Psychiatric/Neurological: No Symptoms Reported Endocrine: No Symptoms Reported Hematologic/Lymphatic: No Symptoms Reported Past Jzlptfz-Lbcmiw-Kkmkqa Hx Patient Social History Alcohol Beverage of Choice: Beer, [place] Type Used: Cigarettes 2nd Hand Smoke Exposure: Yes Recent Hopitalizations: No Immunizations Up To Date Tetanus Booster (TDap): Unknown Date of Pneumonia Vaccine: Oct 24, 2013 Date of Influenza Vaccine: May 26, 2017 Seasonal Allergies Seasonal Allergies: Yes Past Medical History Surgeries: Yes (BUNIONECTOMY, NECK FUSION, BREAST IMPLANTS) Lobectomy, Tubal Ligation Respiratory: Yes ( HX OF LUNG CA, doing sleep study soon, wears oxygen at hs) Asthma, COPD Currently Using CPAP: No Currently Using BIPAP: No Cardiac: No Atrial Fibrillation, High Cholesterol Neurological: No 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 Genitourinary: No Gastrointestinal: Yes Gastroesophageal Reflux, Irritable Bowel Musculoskeletal: Yes (joint pain) Arthritis, Chronic Back Pain Endocrine: No HEENT: No Cancer: Yes Lung What Type of Treatment Did You: Chemotherapy, Radiation, Surgical Intervention Psychosocial: Yes Anxiety, Depression Integumentary: No Blood Disorders: No Adverse Reaction/Blood Tranf: No Family Medical History FH: lung cancer 19 FATHER 19 MOTHER No Pertinent Family Hx Physical Exam Vital Signs Vital Signs - First Documented 05/26/18 15:02 Temp 98.0 Pulse 89 Resp 18 B/P (MAP) 100/69 (79) Pulse Ox 98 O2 Delivery Room Air Capillary Refill : Height/Weight/BMI Height: 5'5.00" Weight: 187lbs. 0.0oz. 84.514298cu; 31.6 BMI Method:Stated General Appearance: WD/WN, no apparent distress HEENT: PERRL/EOMI, normal ENT inspection Neck: non-tender, full range of motion Respiratory: no respiratory distress, no accessory muscle use Cardiovascular: regular rate, rhythm, no murmur Gastrointestinal: normal bowel sounds, soft, tenderness (right upper) Neurologic/Psychiatric: alert, normal mood/affect, oriented x 3 Skin: normal color, warm/dry Progress/Results/Core Measures Results/Orders Lab Results Laboratory Tests Test 05/26/18 15:18 Range/Units White Blood Count 10.4 4.3-11.0 10^3/uL Red Blood Count 3.60 L 4.35-5.85 10^6/uL Hemoglobin 12.3 11.5-16.0 G/DL Hematocrit 36 35-52 % Mean Corpuscular Volume 101 H 80-99 FL Mean Corpuscular Hemoglobin 34 25-34 PG Mean Corpuscular Hemoglobin Concent 34 32-36 G/DL Red Cell Distribution Width 14.5 10.0-14.5 % Platelet Count 275 130-400 10^3/uL Mean Platelet Volume 9.8 7.4-10.4 FL Neutrophils (%) (Auto) 69 42-75 % Lymphocytes (%) (Auto) 23 12-44 % Monocytes (%) (Auto) 8 0-12 % Eosinophils (%) (Auto) 1 0-10 % Basophils (%) (Auto) 0 0-10 % Neutrophils # (Auto) 7.2 1.8-7.8 X 10^3 Lymphocytes # (Auto) 2.3 1.0-4.0 X 10^3 Monocytes # (Auto) 0.8 0.0-1.0 X 10^3 Eosinophils # (Auto) 0.1 0.0-0.3 10^3/uL Basophils # (Auto) 0.0 0.0-0.1 10^3/uL Sodium Level 139 135-145 MMOL/L Potassium Level 3.5 L 3.6-5.0 MMOL/L Chloride Level 108 H 98-107 MMOL/L Carbon Dioxide Level 21 21-32 MMOL/L Anion Gap 10 5-14 MMOL/L Blood Urea Nitrogen 12 7-18 MG/DL Creatinine 0.71 0.60-1.30 MG/DL Estimat Glomerular Filtration Rate > 60 BUN/Creatinine Ratio 17 Glucose Level 99 70-105 MG/DL Calcium Level 9.6 8.5-10.1 MG/DL Corrected Calcium 9.4 8.5-10.1 MG/DL Total Bilirubin 0.4 0.1-1.0 MG/DL Aspartate Amino Transf (AST/SGOT) 14 5-34 U/L Alanine Aminotransferase (ALT/SGPT) 17 0-55 U/L Alkaline Phosphatase 61 40-136 U/L Total Protein 7.5 6.4-8.2 GM/DL Albumin 4.3 3.2-4.5 GM/DL My Orders Orders - VIVIAN BARRERA FACILITY SERVICE ASSOCIATE Cbc With Automated Diff (05/26/18 14:29) Comprehensive Metabolic Panel (05/26/18 14:29) Chest Pa/Lat (2 View) (05/26/18 14:29) Iv Heplock-Insert (Order) (05/26/18 14:29) Ketorolac Injection (Toradol Injection) (05/26/18 14:30) Albuterol/Ipra Inhalation Soln (Duoneb I (05/26/18 14:30) Svn Small Volume Nebulizer (05/26/18 14:29) Ekg Tracing (05/26/18 14:29) Continuous Ekg Monitoring (05/26/18 14:29) Us Gallbladder [id number] (05/26/18 15:36) Medications Given in ED Current Medications Medications Dose Ordered Sig/Caitlin Route Start Time Stop Time Status Last Admin Dose Admin Albuterol/ Ipratropium 3 ml ONCE ONCE INH 05/26/18 14:30 05/26/18 14:31 DC 05/26/18 15:20 3 ML Ketorolac Tromethamine 15 mg ONCE ONCE IVP 05/26/18 14:30 05/26/18 14:31 DC 05/26/18 15:39 15 MG Vital Signs/I&O 05/26/18 05/26/18 15:02 15:21 Temp 98.0 Pulse 89 Resp 18 B/P (MAP) 100/69 (79) Pulse Ox 98 95 O2 Delivery Room Air Room Air Departure Communication (Admissions) 9549-her pain is much better controlled at this time after Toradol. Workup is unremarkable. She is on Eliquis for atrial fibrillation. I'll prescribe a course of steroids to see if this helps with some pleurisy type pain Impression Primary Impression: Right lower chest pain Additional Impression: Pleuritic chest pain Disposition: HOME, SELF-CARE Condition: Stable Departure-Patient Inst. Decision time for Depature: 16:21 Referrals: SHELLEY ROSENBERG DO (PCP/Family) Primary Care Physician Patient Instructions: Pleuritic Chest Pain Add. Discharge Instructions: 1. Steroids as directed 2. Continue all of her current medications return to ER for any concerns and follow up with primary care within 1 week. Scripts Prednisone (Prednisone) 20 Mg Tab 40 MG PO DAILY, #6 TAB Prov: VIVIAN BARRERA APRN 05/26/18 VIVIAN BARRERA APRN May 26, 2018 15:20
[2018-05-26 15:24] LABS: BASOPHILS % (AUTO) 0 % (0-10); EOSINOPHILS # (AUTO) 0.1 10^3/uL (0.0-0.3); EOSINOPHILS % (AUTO) 1 % (0-10); HEMATOCRIT 36 % (35-52); HEMOGLOBIN 12.3 G/DL (11.5-16.0); LYMPHOCYTES # (AUTO) 2.3 X 10^3 (1.0-4.0); LYMPHOCYTES % (AUTO) 23 % (12-44); MEAN CORPUSCULAR HEMOGLOBIN 34 PG (25-34); MEAN CORPUSCULAR HGB CONC 34 G/DL (32-36); MEAN CORPUSCULAR VOLUME 101 FL (80-99); MEAN PLATELET VOLUME 9.8 FL (7.4-10.4); MONOCYTES # (AUTO) 0.8 X 10^3 (0.0-1.0); MONOCYTES % (AUTO) 8 % (0-12); NEUTROPHILS # (AUTO) 7.2 X 10^3 (1.8-7.8); NEUTROPHILS % (AUTO) 69 % (42-75); PLATELET COUNT 275 10^3/uL (130-400); RED CELL DISTRIBUTION WIDTH 14.5 % (10.0-14.5); WHITE BLOOD COUNT 10.4 10^3/uL (4.3-11.0)
[2018-05-26 15:40] LABS: ALANINE AMINOTRANSFERASE 17 U/L (0-55); ALBUMIN 4.3 GM/DL (3.2-4.5); ALKALINE PHOSPHATASE 61 U/L (40-136); BILIRUBIN,TOTAL 0.4 MG/DL (0.1-1.0); BUN/CREATININE RATIO 17; CALCIUM 9.6 MG/DL (8.5-10.1); CARBON DIOXIDE 21 MMOL/L (21-32); CHLORIDE 108 MMOL/L (98-107); CREATININE SERUM 0.71 MG/DL (0.60-1.30); GFR ESTIMATED > 60; GLUCOSE 99 MG/DL (70-105); POTASSIUM 3.5 MMOL/L (3.6-5.0); SODIUM 139 MMOL/L (135-145); TOTAL PROTEIN 7.5 GM/DL (6.4-8.2)
--- NOTE | 2018-05-26 16:09 | Diagnostic Imaging Report ---
INDICATION: Right upper quadrant pain, worse when taking a deep breath. TIME OF EXAM: 4:37 p.m. COMPARISON: Correlation is made with prior study 03/12/2018. FINDINGS: The heart size is normal. Surgical clips in the right suprahilar region are noted. Lungs are hyperinflated consistent with COPD. No infiltrates are seen. No effusion or pneumothorax is identified. IMPRESSION: Stable chest. No acute feature is detected. Dictated by: Dictated on workstation # [id number]
[2018-05-26 16:35] VITALS: BP 115/66
--- NOTE | 2018-05-26 16:50 | Diagnostic Imaging Report ---
PROCEDURE: US Gallbladder. TECHNIQUE: Multiple real-time grayscale images were obtained over the right upper quadrant in various projections. INDICATION: Abdominal pain. FINDINGS: The liver parenchyma appeared unremarkable. There is no solid or cystic liver mass. The gallbladder is normal. No bile duct dilatation. The visualized portions of the pancreas were unremarkable, however portions of that structure obscured by gas. There is no dilatation of intra or extrahepatic bile ducts. Right kidney is normal in size, cortical thickness, and echotexture. There is no ascites. IMPRESSION: Normal right upper quadrant ultrasound. Dictated by: Dictated on workstation # [id number]
== END | disposition home or self-care (01) ==
LOC: EDUNIT# 14:23 → ER 14:24
DX: R07.81 Pleurodynia (principal); R10.11 Right upper quadrant pain; J44.9 Chronic obstructive pulmonary disease, unspecified; I48.91 Unspecified atrial fibrillation; I25.10 Atherosclerotic heart disease of native coronary artery without angina pectoris; K21.9 Gastro-esophageal reflux disease without esophagitis; F41.9 Anxiety disorder, unspecified; F32.9 Major depressive disorder, single episode, unspecified; Z87.19 Personal history of other diseases of the digestive system; Z80.1 Family history of malignant neoplasm of trachea, bronchus and lung; Z92.21 Personal history of antineoplastic chemotherapy; Z79.51 Long term (current) use of inhaled steroids; Z77.22 Contact with and (suspected) exposure to environmental tobacco smoke (acute) (chronic); Z98.1 Arthrodesis status
CPT/HCPCS: 36415; 36430; 71046; 76705; 80053; 85025; 94640

== ENCOUNTER 2018-06-20 13:25 | Outpatient (RCR) | payer MEDICARE, MEDICAID ==
[2018-03-27] MEDS: MEPOLIZUMAB 100 MG (NUCALA) VIAL SQ SCH (13:27)
[2018-03-27 14:46] VITALS: BP 103/65
[2018-03-27 15:38] VITALS: BP 103/65
[2018-04-25] MEDS: MEPOLIZUMAB 100 MG (NUCALA) VIAL SQ SCH (13:19)
[2018-04-25 13:25] VITALS: BP 98/72
[2018-05-23 13:20] VITALS: BP 104/69
[2018-05-23] MEDS: MEPOLIZUMAB 100 MG (NUCALA) VIAL SQ SCH (13:30)
[~2018-06-20] VITALS: Ht 165.1 cm; Wt 84.8 kg
[~2018-06-20 13:25] MED LIST changes: -KETOROLAC 30 MG/ML VIAL IVP ONE; +NS IV 1000 ML 1,000 ML IV SCH; -RT-ALBUTEROL/IPRATROPIUM 3 ML (DUONEB) VIAL INH ONE; +WATER (STERILE) FOR INJECTION 20 ML ONE
[2018-06-20 13:30] VITALS: BP 109/81
[2018-06-20] MEDS: MEPOLIZUMAB 100 MG (NUCALA) VIAL SQ SCH (14:04)
== END 2018-06-25 | disposition home or self-care (01) ==
LOC: SDC 13:25
PROVIDERS: ATTEND Internal Medicine Critical Care Medicine
DX: J45.50 Severe persistent asthma, uncomplicated (principal)
CPT/HCPCS: 96372

== ENCOUNTER → 2018-07-07 | Outpatient (CLI) | payer MEDICARE, MEDICAID ==
[~2018-07-07] MED LIST changes: +IOHEXOL 350 MG/ML 100 ML (OMNIPAQUE 350) VIAL IV ONE; +NS 250 ML (IVPB) BAG IV ONE; -NS IV 1000 ML 1,000 ML IV SCH; +RECEIVED CONTRAST (Hold Metformin) IV SCH; -WATER (STERILE) FOR INJECTION 20 ML ONE
[2018-07-07 09:34] LABS: BUN/CREATININE RATIO 15; CALCIUM 9.6 MG/DL (8.5-10.1); CARBON DIOXIDE 24 MMOL/L (21-32); CHLORIDE 106 MMOL/L (98-107); CREATININE SERUM 0.73 MG/DL (0.60-1.30); GFR ESTIMATED > 60; GLUCOSE 100 MG/DL (70-105); POTASSIUM 3.8 MMOL/L (3.6-5.0); SODIUM 139 MMOL/L (135-145)
--- NOTE | 2018-07-14 11:22 | Diagnostic Imaging Report ---
PROCEDURE: CT abdomen and pelvis with contrast. TECHNIQUE: Multiple contiguous axial images were obtained through the abdomen and pelvis after administration of intravenous contrast. INDICATION: Abnormal PET/CT. FINDINGS: The PET/CT exam performed at [facility] in [place], [place], on 05/29/2018 noted a stable right lower lobe mass-like opacity. There was also a new intensely nodular uptake within the right lower quadrant near the cecoileal junction. It was not certain whether this was related to physiologic activity or to a neoplastic process. On this exam, the evaluation of the cecum is limited as there is a fair amount of fecal material in this region. There is no definite mass identified. If further evaluation is desired, however, then either endoscopy or an air-contrast colon exam would be recommended. The remainder of the colon is unremarkable. There is no pelvic mass or free fluid collection noted. The uterus and urinary bladder are grossly unremarkable. The liver is homogeneous aside from a small 5 mm cyst in the left lobe of the liver. The liver does not appear to be enlarged, and the biliary tree is not abnormally dilated. The spleen, pancreas, adrenals, gallbladder, kidneys, aorta, and inferior vena cava are unremarkable for an acute abnormality. There is a 1.2 cm cyst in the superior pole of the right kidney. The stomach is filled with oral contrast and difficult to assess. The band of increased density in the right lung base reported on the PET/CT exam is again evident and somewhat less conspicuous on this study. The left lung base is clear. The bone windows show no sign of a fracture or of a destructive lesion. IMPRESSION: 1. There is no focal mass in the cecum to correspond to the finding of the PET/CT exam. I suspect that the PET/CT exam was related to physiologic activity alone. However, the cecum is difficult to evaluate due to the presence of fecal material. Recommendations as above. 2. There is no other abnormality of the abdomen or pelvis. 3. There are small cysts within the liver and right kidney. Dictated by: Dictated on workstation # [id number]
== END ==
LOC: RAD 09:01
PROVIDERS: ATTEND Internal Medicine
DX: C34.90 Malignant neoplasm of unspecified part of unspecified bronchus or lung (principal); K76.89 Other specified diseases of liver; N28.1 Cyst of kidney, acquired
CPT/HCPCS: 36415; 74177; 80048

== ENCOUNTER 2018-08-19 12:42 | Emergency (ER) | payer MEDICARE, MEDICAID ==
[~2018-08-19] VITALS: Ht 165.1 cm; Wt 81.6 kg
[~2018-08-19 12:42] MED LIST changes: -IOHEXOL 350 MG/ML 100 ML (OMNIPAQUE 350) VIAL IV ONE; -NS 250 ML (IVPB) BAG IV ONE; -RECEIVED CONTRAST (Hold Metformin) IV SCH
[2018-08-19] MEDS ORDERED: RT-ALBUTEROL/IPRATROPIUM 3 ML (DUONEB) VIAL INH ONE (12:45)
[2018-08-19] MEDS ORDERED: methylPREDNISolone 125 MG (Solu-MEDROL) VIAL IVP ONE (12:45)
--- OUTSIDE RECORDS SUMMARY | 2018-08-19 12:54 | XMS REPORT | Continuity of Care Document ---
Author Author [facility] Address Unknown Phone Unavailable Allergies Active Description Code Type Severity Reaction Onset Reported/Identified Relationship to Patient Clinical Status Yes NO KNOWN DRUG ALLERGIES NO KNOWN DRUG ALLERG UNKNOWN Yes NO KNOWN DRUG ALLERGIES UNKNOWN NO KNOWN DRUG ALLERG Yes No Known Drug Allergies [id number] Drug Allergy Unknown N/A 07/24/2017 Medications Medication [...] PREMIX IV BAG) GM 04/20/2018 04/20/2018 ONCE&1831 IPRATROPIUM/ALBUTEROL INH SOLN (DUO-NEB INH SOLN) MLS 06/24/2018 06/24/2018 ONCE&1535 Problems Date Dx Coded Attending Type Code [...] ADYYLON A Ot V45.4 10/20/2014 OSIRIS SUMMERS, CHERYLON A Ot V57.1 10/21/2014 OSIRIS SUMMERS, CHERYLON A Ot 723.1 10/21/2014 OSIRIS SUMMERS, CHERYLON A Ot V45.4 10/21/2014 OSIRIS SUMMERS, CHERYLON A Ot V57.1 11/23/2014 OSIRIS SUMMERS, CHERYLON A Ot 723.1 11/23/2014 OSIRIS SUMMERS, ADYYLON A Ot V45.4 11/23/2014 OSIRIS SUMMERS, ADYYLON A Ot V57.1 11/23/2014 OSIRIS SUMMERS, CHERYLON A Ot 723.1 11/23/2014 OSIRIS SUMMERS, CHERYLON A Ot V45.4 11/23/2014 OSIRIS SUMMERS, CHERYLON A Ot V57.1 11/24/2014 OSIRIS SUMMERS, CHERYLON A Ot 723.1 11/24/2014 OSIRIS SUMMERS, ADYYLON A Ot V45.4 11/24/2014 OSIRIS SUMMERS, CHERYLON A Ot V57.1 11/24/2014 OSIRIS SUMMERS, CHERYLON A Ot 723.1 11/24/2014 OSIRIS SUMMERS, CHERYLON A Ot V45.4 11/24/2014 MUKESH NEWELL MD Ot V57.1 11/25/2014 MUKESH NEWELL MD Ot 723.1 CERVICALGIA 11/25/2014 MUKESH NEWELL MD Ot V45.4 ARTHRODESIS STATUS 11/25/2014 MUKESH NEWELL MD Ot V57.1 PHYSICAL THERAPY NEC 04/04/2015 SUSIE ANDIE Vega Ot 780.54 HYPERSOMNIA, UNSPECIFIED 04/04/2015 ANDIE RICHARDS DO Ot 786.09 RESPIRATORY ABNORM NEC 04/14/2015 SUSIE ANDIE Vega Ot 162.9 04/14/2015 SUSIE LEARY ANDIE Vega Ot 305.1 04/14/2015 ANDIE RICHARDS DO Ot 496 05/03/2015 ANDIE RICHARDS DO Ot 162.9 05/03/2015 SUSIE LEARY ANDIE Vega Ot 305.1 05/03/2015 SUSIE LEARY ANDIE Vega Ot 496 05/09/2015 ANDIE RICHARDS DO Ot 162.9 05/09/2015 ANDIE RICHARDS DO Gary Ot 305.1 05/09/2015 SUSIE LEARY ANDIE Vega Ot 496 05/23/2015 Ot 397.0 05/23/2015 Ot [...] 05/23/2015 ANDIE RICHARDS DO Ot 162.9 05/23/2015 SUSIEANDIE STEPHENS DO Ot 305.1 05/23/2015 ANDIE RICHARDS DO Ot 496 06/16/2015 PINA DO, ABE L Ot 246.9 06/16/2015 PINA DO, ABE L Ot 272.4 06/21/2015 PINA DO, ABE L Ot 246.9 06/21/2015 HELLER [...] 08/03/2015 ALESSANDRO MARTINEZ DO Ot M50.20 08/09/2015 ALESSANDRO MARTINEZ DO Ot M47.812 08/09/2015 ALESSANDRO MARTINEZ DO Ot M50.20 09/29/2015 Ot 162.9 09/29/2015 Ot 729.5 09/29/2015 Ot 599.70 09/29/2015 Ot 305.1 09/29/2015 Ot 721.0 09/29/2015 Ot 721.3 09/29/2015 Ot V10.11 09/29/2015 Ot V58.69 09/29/2015 Ot V67.1 09/29/2015 Ot V67.2 09/29/2015 ANDIE RICHARDS DO Ot 162.9 09/29/2015 ANDIE RICHARDS DO Ot 305.1 09/29/2015 ANDIE RICHARDS DO Ot 496 09/29/2015 HELLER DO, ABE L Ot 246.9 09/29/2015 HELLER DO, ABE L Ot 272.4 09/29/2015 HELLER DO, ABE L Ot E78.5 09/29/2015 JUAN DO, ALESSANDRO P Ot M47.812 09/29/2015 MARTINEZ DO, ALESSANDRO P Ot M50.20 10/05/2015 NEHA ROSENBERG WHITEPRINTING MACHINE OPERATOR Ot C34.90 10/05/2015 NEHA ROSENBERG WHITEPRINTING MACHINE OPERATOR Ot F17.210 10/05/2015 NEHA ROSENBERG WHITEPRINTING MACHINE OPERATOR Ot J44.9 10/05/2015 NEHA ROSENBERG APRN Ot R91.1 10/13/2015 SAAD SUMMERS, NA Teresa Ot K52.1 TOXIC GASTROENTERITIS AND COLITIS 10/13/2015 SAAD SUMMERS, NA Teresa Ot T36.95XA ADVERSE EFFECT OF UNSP SYSTEMIC ANTIBIOT 10/20/2015 NEHA ROSENBERG WHITEPRINTING MACHINE OPERATOR Ot C34.90 10/20/2015 NEHA ROSENBERG WHITEPRINTING MACHINE OPERATOR Ot F17.210 10/20/2015 NEHA ROSENBERG WHITEPRINTING MACHINE OPERATOR Ot J44.9 10/20/2015 NEHA ROSENBERG WHITEPRINTING MACHINE OPERATOR Ot R91.1 10/21/2015 BAIMA, CONNIE L STEAM DISTRIBUTION SUPERVISOR Ot I48.0 10/21/2015 BAIMA, CONNIE L STEAM DISTRIBUTION SUPERVISOR Ot J44.9 10/21/2015 BAIMA, CONNIE L STEAM DISTRIBUTION SUPERVISOR Ot R06.09 10/21/2015 BAIMA, CONNIE L STEAM DISTRIBUTION SUPERVISOR Ot R07.9 10/21/2015 BAIMA, CONNIE L STEAM DISTRIBUTION SUPERVISOR Ot I48.0 10/21/2015 BAIMA, CONNIE L STEAM DISTRIBUTION SUPERVISOR Ot J44.9 10/21/2015 BAIMA, CONNIE L STEAM DISTRIBUTION SUPERVISOR Ot R06.09 10/21/2015 BAIMA, CONNIE L STEAM DISTRIBUTION SUPERVISOR Ot R07.9 10/26/2015 NEHA ROSENBERG WHITEPRINTING MACHINE OPERATOR Ot C34.90 10/26/2015 NEHA ROSENBERG WHITEPRINTING MACHINE OPERATOR Ot F17.210 10/26/2015 NEHA ROSENBERG WHITEPRINTING MACHINE OPERATOR Ot J44.9 10/26/2015 SHAKIRANEHA JAMES APRN Ot R91.1 11/10/2015 FRANCESCA SUMMERS, PARAM M Ot Z01.818 ENCOUNTER FOR OTHER PREPROCEDURAL EXAMIN 11/11/2015 FRANCESCA SUMMERS, PARAM M Ot Z01.818 11/14/2015 FRANCESCA SUMMERS, PARAM M Ot K22.2 ESOPHAGEAL OBSTRUCTION 11/14/2015 FRANCESCA SUMMERS, PARAM M Ot K25.9 GASTRIC ULCER, UNSP ACUTE OR CHRONIC, 11/14/2015 FRANCESCA SUMMERS, PARAM M Ot R19.7 DIARRHEA, UNSPECIFIED 11/15/2015 FRANCESCA SUMMERS, PARAM M Ot K22.2 [...] Ot I48.0 PAROXYSMAL ATRIAL FIBRILLATION 03/27/2016 WILBERTO KELLEYC, ALI FACP CCDS Ot J43.8 [...] M47.812 SPONDYLOSIS W/O MYELOPATHY OR RADICULOPA 03/28/2016 ALESSANDRO MARTINEZ DO Ot M50.20 OTHER CERVICAL DISC DISPLACEMENT, UNSP C 03/28/2016 NEHA ROSENBERG WHITEPRINTING MACHINE OPERATOR Ot C34.90 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 03/28/2016 NEHA ROSENBERG WHITEPRINTING MACHINE OPERATOR Ot F17.210 NICOTINE DEPENDENCE, CIGARETTES, UNCOMPL 03/28/2016 NEHA ROSENBERG WHITEPRINTING MACHINE OPERATOR Ot J44.9 CHRONIC OBSTRUCTIVE PULMONARY DISEASE, U 03/28/2016 NEHA ROSENBERG WHITEPRINTING MACHINE OPERATOR Ot R91.1 SOLITARY PULMONARY NODULE 03/28/2016 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 Ot I48.0 PAROXYSMAL ATRIAL FIBRILLATION 03/28/2016 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 Ot J44.9 CHRONIC OBSTRUCTIVE PULMONARY DISEASE, U 03/28/2016 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 Ot R06.09 OTHER FORMS OF DYSPNEA 03/28/2016 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 Ot R07.9 CHEST PAIN, UNSPECIFIED 03/28/2016 WILBERTO SUMMERS FACC, ALI FACP CCDS Ot C34.90 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 03/28/2016 WILBERTO SUMMERS FACC, ALI FACP CCDS Ot I48.0 PAROXYSMAL ATRIAL FIBRILLATION 03/28/2016 WILBERTO SUMMERS FACC, ALI FACP CCDS Ot J43.8 OTHER EMPHYSEMA 03/28/2016 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 Ot 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 03/28/2016 VIVIAN BARRERA APRN Ot F17.210 NICOTINE DEPENDENCE, CIGARETTES, UNCOMPL 03/28/2016 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 Ot J44.9 CHRONIC OBSTRUCTIVE PULMONARY DISEASE, U 03/28/2016 VIVIAN BARRERA APRN Ot M47.812 SPONDYLOSIS W/O MYELOPATHY OR RADICULOPA 03/28/2016 VIVIAN BARRERA APRN Ot M51.36 OTHER INTERVERTEBRAL DISC DEGENERATION, 03/28/2016 VIVIAN BARRERA APRN Ot R07.89 OTHER CHEST PAIN 03/28/2016 VIVIAN BARRERA APRN Ot R07.9 CHEST PAIN, UNSPECIFIED 03/28/2016 VIVIAN BARRERA APRN Ot Z98.1 ARTHRODESIS STATUS 03/29/2016 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 Ot 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 03/29/2016 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 Ot F17.210 NICOTINE DEPENDENCE, CIGARETTES, UNCOMPL 03/29/2016 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 Ot J44.9 CHRONIC OBSTRUCTIVE PULMONARY DISEASE, U 03/29/2016 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 Ot M47.812 SPONDYLOSIS W/O MYELOPATHY OR RADICULOPA 03/29/2016 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 Ot M51.36 OTHER INTERVERTEBRAL DISC DEGENERATION, 03/29/2016 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 Ot R07.89 OTHER CHEST PAIN 03/29/2016 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 Ot R07.9 CHEST PAIN, UNSPECIFIED 03/29/2016 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 Ot Z98.1 ARTHRODESIS STATUS 04/16/2016 WILBERTO SUMMERS FACC, ALI FACP CCDS Ot C34.90 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 04/16/2016 WILBERTO SUMMERS FACC, ALI FACP CCDS Ot I48.0 PAROXYSMAL ATRIAL FIBRILLATION 04/16/2016 WILBERTO KELLEYC, ALI FACP CCDS Ot J43.8 [...] CCDS Ot J43.8 OTHER EMPHYSEMA 04/26/2016 WILBERTO KELLEYC, ALI FACP CCDS Ot R00.2 PALPITATIONS 05/16/2016 MEENAKSHI SUMMERS, KHALIDA U Ot C34.90 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 05/16/2016 WILBERTO KELLEYC, ALI FACP CCDS Ot I48.0 PAROXYSMAL ATRIAL FIBRILLATION 05/16/2016 WILBERTO KELLEYC, ALI FACP CCDS Ot J43.8 OTHER EMPHYSEMA 05/16/2016 WILBERTO KELLEYC, ALI FACP CCDS Ot R00.2 PALPITATIONS 05/16/2016 MEENAKSHI SUMMERS, ATMAN U Ot C34.90 MALIGNANT NEOPLASM OF UNSP [facility] 05/23/2016 WILBERT[facility] SUMMERS F[facility], [facility] CCDS Ot I48.0 PAROXYSMAL ATRIAL FIBRILLATION 05/23/2016 WILBERTO SUMMERS FAC, [facility] CCDS Ot J43.8 OTHER EMPHYSEMA 05/23/2016 WILBERTO SUMMERS FAC, [facility] CCDS Ot R00.2 PALPITATIONS 05/24/2016 ZAIN SUMMERS, KEM Ot C34.90 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 05/24/2016 ZAIN SUMMERS, KEM Ot M89.8X0 OTHER SPECIFIED DISORDERS OF BONE, MULTI 05/29/2016 ZAIN SUMMERS, KEM Ot C34.90 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 05/29/2016 ZAIN SUMMERS, KEM Ot M89.8X0 OTHER [...] DO Ot M50.20 OTHER [facility], [facility] 06/04/2016 NEHA ROSENBERG APRN Ot C34.90 MALIGNANT NEOPLASM OF UNSP [facility] 06/04/2016 NEHA ROSENBERG APRN Ot F17.210 NICOTINE DEPENDENCE, CIGARETTES, UNCOMPL 06/04/2016 NEHA ROSENBERG APRN Ot J44.9 CHRONIC OBSTRUCTIVE PULMONARY DISEASE, U 06/04/2016 NEHA ROSENBERG APRN Ot R91.1 SOLITARY PULMONARY NODULE 06/04/2016 BAIMA, CONNIE L STEAM DISTRIBUTION SUPERVISOR Ot I48.0 PAROXYSMAL ATRIAL FIBRILLATION 06/04/2016 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 Ot J44.9 CHRONIC OBSTRUCTIVE PULMONARY DISEASE, U 06/04/2016 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 Ot R06.09 OTHER FORMS OF DYSPNEA 06/04/2016 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 Ot R07.9 CHEST PAIN, UNSPECIFIED 06/04/2016 WILBERTO SUMMERS FACC, ALI FACP CCDS Ot C34.90 MALIGNANT NEOPLASM OF UNSP [facility] 06/04/2016 WILBERTO SUMMERS FACC, ALI FACP CCDS Ot I48.0 PAROXYSMAL ATRIAL FIBRILLATION 06/04/2016 WILBERTO SUMMERS FACC, ALI FACP CCDS Ot J43.8 OTHER EMPHYSEMA 06/04/2016 ZAIN SUMMERS, KEM Ot C34.90 MALIGNANT NEOPLASM OF UNSP [facility] 06/04/2016 ZAIN SUMMERS, KEM Ot M89.8X0 OTHER SPECIFIED DISORDERS OF BONE, MULTI 06/04/2016 WILBERTO SUMMERS FACC, ALI FACP CCDS Ot I48.0 PAROXYSMAL ATRIAL FIBRILLATION 06/04/2016 WILBERTO SUMMERS FACC, ALI FACP CCDS Ot J43.8 OTHER EMPHYSEMA 06/04/2016 WILBERTO SUMMERS FACC, ALI FACP CCDS Ot R00.2 PALPITATIONS 06/04/2016 MEENAKSHI SUMMERS, ATMAN U Ot C34.[address] [facility] 06/05/2016 ANDIE RICHARDS DO Ot 162.9 MAL [...] DO Ot M50.20 OTHER CERVICAL DISC DISPLACEMENT, [facility] 06/05/2016 SHAKIRA, NEHA E WHITEPRINTING MACHINE OPERATOR Ot C34.90 MALIGNANT NEOPLASM OF UNSP [facility] 06/05/2016 NEHA ROSENBERG WHITEPRINTING MACHINE OPERATOR Ot F17.210 NICOTINE DEPENDENCE, CIGARETTES, UNCOMPL 06/05/2016 NEHA ROSENBERG WHITEPRINTING MACHINE OPERATOR Ot J44.9 CHRONIC OBSTRUCTIVE PULMONARY DISEASE, U 06/05/2016 NEHA ROSENBERG WHITEPRINTING MACHINE OPERATOR Ot R91.1 SOLITARY PULMONARY NODULE 06/05/2016 BAIMACONNIE Luz Marina STEAM DISTRIBUTION SUPERVISOR Ot I48.0 PAROXYSMAL ATRIAL FIBRILLATION 06/05/2016 BAIMA CONNIE L STEAM DISTRIBUTION SUPERVISOR Ot J44.9 CHRONIC OBSTRUCTIVE PULMONARY DISEASE, U 06/05/2016 BAIMACONNIE L STEAM DISTRIBUTION SUPERVISOR Ot R06.09 OTHER FORMS OF DYSPNEA 06/05/2016 BAIMACONNIE L STEAM DISTRIBUTION SUPERVISOR Ot R07.9 CHEST PAIN, UNSPECIFIED 06/05/2016 WILBERTO SUMMERS FACC, ALI FACP CCDS Ot C34.90 MALIGNANT NEOPLASM OF UNSP [facility] 06/05/2016 WILBERTO SUMMERS FACC, ALI FACP CCDS Ot I48.0 PAROXYSMAL ATRIAL FIBRILLATION 06/05/2016 WILBERTO SUMMERS FACC, ALI FACP CCDS Ot J43.8 OTHER EMPHYSEMA 06/05/2016 ZAIN SUMMERS, KEM Ot C34.90 MALIGNANT NEOPLASM OF UNSP [facility] 06/05/2016 ZAIN SUMMERS, KEM Ot M89.8X0 OTHER SPECIFIED DISORDERS OF BONE, MULTI 06/05/2016 WILBERTO SUMMERS FACC, ALI FACP CCDS Ot I48.0 PAROXYSMAL ATRIAL FIBRILLATION 06/05/2016 WILBERTO SUMMERS FACC, ALI FACP CCDS Ot J43.8 OTHER EMPHYSEMA 06/05/2016 WILBERTO SUMMERS FACC, ALI FACP CCDS Ot R00.2 PALPITATIONS 06/05/2016 MEENAKSHI SUMMERS, ATMAN U Ot C34.90 MALIGNANT NEOPLASM OF UNSP [facility] 06/05/2016 BRIT ROSENBERG DO Ot I48.0 PAROXYSMAL ATRIAL FIBRILLATION 06/11/2016 BRIT ROSENBERG DO Ot F41.9 ANXIETY DISORDER, UNSPECIFIED 06/11/2016 BRIT ROSENBERG DO Ot G89.4 CHRONIC PAIN SYNDROME 06/11/2016 BRIT ROSENBERG DO Ot I48.0 PAROXYSMAL ATRIAL FIBRILLATION 06/11/2016 BRIT ROSENBERG DO Ot M47.812 SPONDYLOSIS W/O MYELOPATHY OR RADICULOPA 06/21/2016 MEENAKSHI SUMMERS, ATMCRISTIANA U Ot C34.90 MALIGNANT NEOPLASM OF UNSP [facility] 06/28/2016 ROSENBERG , BRIT M Ot F41.9 ANXIETY DISORDER, UNSPECIFIED 06/28/2016 ROSENBERG BRIT M Ot G89.4 CHRONIC PAIN SYNDROME 06/28/2016 ROSENBERG BRIT M Ot I48.0 PAROXYSMAL ATRIAL FIBRILLATION 06/28/2016 ROSENBERG BRIT M Ot M47.812 SPONDYLOSIS W/O MYELOPATHY OR RADICULOPA 07/03/2016 ROSENBERG DO, BRIT M Ot F41.9 ANXIETY DISORDER, UNSPECIFIED 07/03/2016 ROSENBERG BRIT M Ot G89.4 CHRONIC PAIN SYNDROME 07/03/2016 ROSENBERG DO, BRIT M Ot I48.0 PAROXYSMAL ATRIAL FIBRILLATION 07/03/2016 ROSENBERG BRIT M Ot M47.812 SPONDYLOSIS W/O MYELOPATHY OR RADICULOPA 07/10/2016 MEENAKSHI SUMMERS, ATMCRISTIANA U Ot C34.90 MALIGNANT NEOPLASM OF UNSP [facility] 07/13/2016 WILBERTO SUMMERS FACC, ALI FACP CCDS Ot I48.0 PAROXYSMAL ATRIAL FIBRILLATION 07/13/2016 WILBERTO SUMMERS FACC, ALI FACP CCDS Ot J43.8 OTHER EMPHYSEMA 07/13/2016 WILBERTO SUMMERS FACC, ALI FACP CCDS Ot R00.2 PALPITATIONS 07/13/2016 ZAIN SUMMERS, KEM Ot C34.90 MALIGNANT NEOPLASM OF UNSP [facility] 07/13/2016 ZAIN SUMMERS, KEM Ot M89.8X0 OTHER [...] DISC DISPLACEMENT, UNSP C 08/14/2016 NEHA ROSENBERG WHITEPRINTING MACHINE OPERATOR Ot C34.90 MALIGNANT NEOPLASM OF UNSP [facility] 08/14/2016 NEHA ROSENBERG WHITEPRINTING MACHINE OPERATOR Ot F17.210 NICOTINE DEPENDENCE, CIGARETTES, UNCOMPL 08/14/2016 NEHA ROSENBERG WHITEPRINTING MACHINE OPERATOR Ot J44.9 CHRONIC OBSTRUCTIVE PULMONARY DISEASE, U 08/14/2016 NEHA ROSENBERG WHITEPRINTING MACHINE OPERATOR Ot R91.1 SOLITARY PULMONARY NODULE 08/14/2016 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 Ot I48.0 PAROXYSMAL ATRIAL FIBRILLATION 08/14/2016 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 Ot J44.9 CHRONIC OBSTRUCTIVE PULMONARY DISEASE, U 08/14/2016 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 Ot R06.09 OTHER FORMS OF DYSPNEA 08/14/2016 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 Ot R07.9 CHEST PAIN, UNSPECIFIED 08/14/2016 WILBERTO SUMMERS FACC, ALI FACP CCDS Ot C34.90 MALIGNANT NEOPLASM OF UNSP [facility] 08/14/2016 WILBERTO SUMMERS FACC, ALI FACP CCDS Ot I48.0 PAROXYSMAL ATRIAL FIBRILLATION 08/14/2016 WILBERTO SUMMERS FACC, ALI FACP CCDS Ot J43.8 OTHER EMPHYSEMA 08/14/2016 ZAIN SUMMERS, KEM Ot C34.90 MALIGNANT NEOPLASM OF UNSP [facility] 08/14/2016 ZAIN SUMMERS, KEM Ot M89.8X0 OTHER SPECIFIED DISORDERS OF BONE, MULTI 08/14/2016 WILBERTO SUMMERS FACC, ALI FACP CCDS Ot I48.0 PAROXYSMAL ATRIAL FIBRILLATION 08/14/2016 WILBERTO SUMMERS FACC, ALI FACP CCDS Ot J43.8 OTHER EMPHYSEMA 08/14/2016 WILBERTO SUMMERS FACC, ALI FACP CCDS Ot R00.2 PALPITATIONS 08/14/2016 MEENAKSHI SUMMERS, [facility] U Ot C34.90 MALIGNANT NEOPLASM OF UNSP [facility] 08/14/2016 BRIT ROSENBERG DO Ot F41.9 ANXIETY DISORDER, UNSPECIFIED 08/14/2016 BRIT ROSENBERG DO Ot G89.4 CHRONIC PAIN SYNDROME 08/14/2016 CHET LEARY BRIT Vega Ot I48.0 PAROXYSMAL ATRIAL FIBRILLATION 08/14/2016 ROSENBERG DOBRIT Gary Ot M47.812 SPONDYLOSIS W/O MYELOPATHY OR RADICULOPA 08/14/2016 SIDRA STOLL MD Ot I48.2 CHRONIC ATRIAL FIBRILLATION 08/14/2016 SIDRA STOLL MD Ot J01.90 ACUTE SINUSITIS, UNSPECIFIED 08/14/2016 SIDRA STOLL MD Ot J40 BRONCHITIS, NOT SPECIFIED ACUTE OR CH 08/14/2016 SIDRA STOLL MD Ot J44.9 CHRONIC OBSTRUCTIVE PULMONARY DISEASE, U 08/14/2016 SIDRA STOLL MD Ot R05 COUGH 08/14/2016 SIDRA STLOL MD Ot Z79.01 MCC (CURRENT) USE OF ANTICOAGULANT 08/14/2016 SIDRA STOLL MD Ot Z79.899 OTHER MCC (CURRENT) DRUG THERAPY 08/14/2016 SIDRA STOLL MD [...] COUGH 08/15/2016 SIDRA STOLL MD Ot Z79.01 MCC (CURRENT) USE OF ANTICOAGULANT 08/15/2016 SIDRA STOLL MD Ot Z79.899 OTHER MCC (CURRENT) DRUG THERAPY 08/15/2016 SIDRA STOLL MD Ot Z85.118 PERSONAL HISTORY OF MALIGNANT NEOPLASM O 08/15/2016 SIDRA STOLL MD Ot 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] 08/20/2016 Mihai Serrano W 427.31 ATRIAL FIBRILLATION 08/20/2016 Mihai Serrano I48.91 UNSPECIFIED ATRIAL FIBRILLATION 08/20/2016 Mihai Serrano 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 08/20/2016 Mihai Serrano Z85.118 PERSONAL HISTORY OF MALIGNANT NEOPLASM OF BRONCHUS AND LUNG 08/29/2016 TyrellBubba W 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, BRONCHUS OR LUNG 08/29/2016 BrownBubba A 491.20 OBSTRUCTIVE CHRONIC BRONCHITIS, WITHOUT EXACERBATION 08/29/2016 BrownJaxonBubba W C34.2 MALIGNANT NEOPLASM OF MIDDLE LOBE, BRONCHUS OR LUNG 08/29/2016 BrownBubba A J44.9 CHRONIC OBSTRUCTIVE PULMONARY DISEASE, UNSPECIFIED 09/01/2016 Mihai Serrano 466.0 ACUTE BRONCHITIS 09/01/2016 Mihai Serrano J20.9 [...] OTHER PREPROCEDURAL EXAMIN 11/29/2016 LAKESHIA ARRIAGA MD Ot Z11.2 ENCOUNTER FOR SCREENING FOR OTHER BACTER 11/29/2016 LAKESHIA ARRIAGA MD Ot Z85.118 PERSONAL HISTORY [...] R07.9 CHEST PAIN, UNSPECIFIED 12/21/2016 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 Ot Z79.899 OTHER MCC (CURRENT) DRUG THERAPY 12/23/2016 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 Ot I48.2 CHRONIC ATRIAL FIBRILLATION 12/23/2016 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 Ot J44.9 CHRONIC OBSTRUCTIVE PULMONARY DISEASE, U 12/23/2016 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 Ot M54.6 PAIN IN THORACIC SPINE 12/23/2016 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 Ot R07.89 OTHER CHEST PAIN 12/23/2016 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 Ot R07.9 CHEST PAIN, UNSPECIFIED 12/23/2016 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 Ot Z79.899 OTHER MCC (CURRENT) DRUG THERAPY 01/30/2017 ANDIE RICHARDS DO [...] DO Ot M50.20 OTHER CERVICAL DISC DISPLACEMENT, [facility] 01/30/2017 NEHA ROSENBERG APRN Ot C34.90 MALIGNANT NEOPLASM OF [facility] 01/30/2017 NEHA ROSENBERG WHITEPRINTING MACHINE OPERATOR Ot F17.210 NICOTINE DEPENDENCE, CIGARETTES, UNCOMPL 01/30/2017 NEHA ROSENBERG WHITEPRINTING MACHINE OPERATOR Ot J44.9 CHRONIC OBSTRUCTIVE PULMONARY DISEASE, U 01/30/2017 NEHA ROSENBERG APRN Ot R91.1 SOLITARY PULMONARY NODULE 01/30/2017 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 Ot I48.0 PAROXYSMAL ATRIAL FIBRILLATION 01/30/2017 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 Ot J44.9 CHRONIC OBSTRUCTIVE PULMONARY DISEASE, U 01/30/2017 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 Ot R06.09 OTHER FORMS OF DYSPNEA 01/30/2017 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 Ot R07.9 CHEST PAIN, UNSPECIFIED 01/30/2017 WILBERTO SUMMERS FACC, ALI FACP CCDS Ot C34.90 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 01/30/2017 WILBERTO SUMMERS FACC, ALI FACP CCDS Ot I48.0 PAROXYSMAL ATRIAL FIBRILLATION 01/30/2017 WILBERTO SUMMERS FACC, ALI FACP CCDS Ot J43.8 OTHER EMPHYSEMA 01/30/2017 KEM PITTMAN MD Ot C34.90 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 01/30/2017 KEM PITTMAN MD Ot M89.8X0 OTHER SPECIFIED DISORDERS OF BONE, MULTI 01/30/2017 WILBERTO SUMMERS FACC, ALI FACP CCDS Ot I48.0 PAROXYSMAL ATRIAL FIBRILLATION 01/30/2017 WILBERTO SUMMERS FACC, ALI FACP CCDS Ot J43.8 OTHER EMPHYSEMA 01/30/2017 WILBERTO SUMMERS FACC, ALI FACP CCDS Ot R00.2 PALPITATIONS 01/30/2017 [...] PART OF RIGHT 01/30/2017 JOSEPHINE KRAMER MD Ot 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 01/30/2017 JOSEPHINE KRAMER MD S Ot R91.1 SOLITARY PULMONARY NODULE 01/30/2017 Ot N88.8 OTHER SPECIFIED NONINFLAMMATORY DISORDER 01/30/2017 Ot Z12.31 ENCNTR SCREEN MAMMOGRAM FOR MALIGNANT NE 01/30/2017 BRIT ROSENBERG DO Ot K59.00 CONSTIPATION, UNSPECIFIED 01/30/2017 BRIT ROSENBERG DO Ot R53.83 OTHER FATIGUE 01/30/2017 ROSENBERG DO, BRIT M Ot Z11.59 ENCOUNTER FOR SCREENING FOR [...] FOR OTHER VIRAL 02/19/2017 JOSEPHINE KRAMER MD S Ot 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 02/19/2017 JOSEPHINE KRAMER MD S Ot R91.1 SOLITARY PULMONARY NODULE 02/19/2017 JOSEPHINE KRAMER MD S Ot 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] 02/27/2017 JOSEPHINE KRAMER MD S Ot C34.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 [...] DO Ot 305.1 TOBACCO USE DISORDER 05/15/2017 SUSIEANDIE STEPHENS DO Ot 496 CHR AIRWAY OBSTRUCT NEC 05/15/2017 ABE HELLER DO Luz Marina Ot 246.9 DISORDER OF THYROID NOS 05/15/2017 PINA LEARY ABE Luz Marina Ot 272.4 HYPERLIPIDEMIA NEC/NOS 05/15/2017 ABE HELLER DO Luz Marina Ot E78.5 HYPERLIPIDEMIA, UNSPECIFIED 05/15/2017 ALESSANDRO MARTINEZ DO Ot M47.812 SPONDYLOSIS W/O MYELOPATHY OR RADICULOPA 05/15/2017 ALESSANDRO MARTINEZ DO Ot M50.20 OTHER CERVICAL DISC DISPLACEMENT, [facility] 05/15/2017 NEHA ROSENBERG WHITEPRINTING MACHINE OPERATOR Ot C34.90 MALIGNANT NEOPLASM OF UNSP PART OF [facility] 05/15/2017 NEHA ROSENBERG APRN Ot F17.210 NICOTINE DEPENDENCE, CIGARETTES, UNCOMPL 05/15/2017 NEHA ROSENBERG WHITEPRINTING MACHINE OPERATOR Ot J44.9 CHRONIC OBSTRUCTIVE PULMONARY DISEASE, U 05/15/2017 NEHA ROSENBERG APRN Ot R91.1 SOLITARY PULMONARY NODULE 05/15/2017 HENRI CONNIE L STEAM DISTRIBUTION SUPERVISOR Ot I48.0 PAROXYSMAL ATRIAL FIBRILLATION 05/15/2017 CONNIE ÁLAVREZ STEAM DISTRIBUTION SUPERVISOR Ot J44.9 CHRONIC OBSTRUCTIVE PULMONARY DISEASE, U 05/15/2017 HENRI CONNIE L STEAM DISTRIBUTION SUPERVISOR Ot R06.09 OTHER FORMS OF DYSPNEA 05/15/2017 HENRI CONNIE Luz Marina STEAM DISTRIBUTION SUPERVISOR Ot R07.9 CHEST PAIN, UNSPECIFIED 05/15/2017 WILBERTO KELLEY, ALI FACP CCDS Ot C34.90 MALIGNANT NEOPLASM OF UNSP PART [facility] 05/15/2017 WILBERTO SUMMERS FACC, ALI FACP CCDS Ot I48.0 PAROXYSMAL ATRIAL FIBRILLATION 05/15/2017 WILBERTO SUMMERS FACC, ALI FACP CCDS Ot J43.8 OTHER EMPHYSEMA 05/15/2017 ZAIN SUMMERS, KEM Ot C34.90 MALIGNANT NEOPLASM OF UNSP [facility] 05/15/2017 ZAIN SUMMERS, KEM Ot M89.8X0 OTHER SPECIFIED DISORDERS OF BONE, MULTI 05/15/2017 WILBERTO KELLEYC, ALI FACP CCDS Ot I48.0 PAROXYSMAL ATRIAL FIBRILLATION 05/15/2017 WILBERTO SUMMERS FACC, ALI FACP CCDS Ot J43.8 OTHER EMPHYSEMA 05/15/2017 WILBERTO SUMMERS FAC, ALI FACP CCDS Ot R00.2 PALPITATIONS 05/15/2017 MEENAKSHI SUMMERS, ATMCRISTIANA U Ot C34.90 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 05/15/2017 BRIT ROSENBERG DO Ot F41.9 ANXIETY DISORDER, UNSPECIFIED 05/15/2017 BRIT ROSENBERG DO Ot G89.4 CHRONIC PAIN SYNDROME 05/15/2017 BRIT ROSENBERG DO Ot I48.0 PAROXYSMAL ATRIAL FIBRILLATION 05/15/2017 BRIT ROSENBERG DO Ot M47.812 SPONDYLOSIS W/O MYELOPATHY OR RADICULOPA 05/15/2017 MEENAKSHI SUMMERS, KHALIDA U Ot 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 05/15/2017 JOSEPHINE KRAMER MD S Ot 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 05/15/2017 JOSEPHINE KRAMER MD S Ot R91.1 SOLITARY PULMONARY NODULE 05/15/2017 Ot N88.8 OTHER SPECIFIED NONINFLAMMATORY DISORDER 05/15/2017 Ot Z12.31 ENCNTR SCREEN MAMMOGRAM FOR MALIGNANT NE 05/15/2017 JOSEPHINE KRAMER MD S Ot 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 05/15/2017 JOSEPHINE KRAMER MD S Ot R91.1 SOLITARY PULMONARY NODULE 05/15/2017 JOSEPHINE KRAMER MD S Ot 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] 05/15/2017 BRIT ROSENBERG DO Ot K59.00 CONSTIPATION, UNSPECIFIED 05/15/2017 BRIT ROSENBERG DO Ot R53.83 OTHER FATIGUE 05/15/2017 BRIT ROSENBERG DO Ot Z11.59 ENCOUNTER FOR SCREENING FOR OTHER VIRAL 05/22/2017 CANDY SUMMERS, EDU Raza Ot C34.90 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 05/22/2017 CANDY SUMMERS, EDU Raza Ot J43.9 EMPHYSEMA, UNSPECIFIED 05/22/2017 EDU GUPTA MD Ot R92.8 OTH ABN AND INCONCLUSIVE FINDINGS ON DX 06/10/2017 EDU GUPTA MD Ot C34.90 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 06/10/2017 EDU GUPTA MD Ot J43.9 EMPHYSEMA, UNSPECIFIED 06/10/2017 EDU GUPTA MD Ot R92.8 OTH ABN AND INCONCLUSIVE FINDINGS ON DX 06/20/2017 ANGELO KRAMER MDID S Ot C34.2 MALIGNANT NEOPLASM OF MIDDLE LOBE, BRONC 06/20/2017 NIA SUMMERS JOSEPHINE S Ot 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, UNSPECIFIED ORGANISM 06/20/2017 NIA SUMMERS JOSEPHINE S Ot J30.9 ALLERGIC RHINITIS, UNSPECIFIED 06/20/2017 NIA SUMMERS JOSEPHINE S Ot J44.1 CHRONIC OBSTRUCTIVE PULMONARY DISEASE W 06/20/2017 NIA SUMMERS JOSEPHINE S Ot 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] 06/20/2017 ANGELO KRAMER MDID S Ot C34.2 MALIGNANT NEOPLASM OF MIDDLE LOBE, BRONC 06/20/2017 ANGELO KRAMER MDID S Ot 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, UNSPECIFIED ORGANISM 06/20/2017 NIA SUMMERS JOSEPHINE S Ot J30.9 ALLERGIC RHINITIS, UNSPECIFIED 06/20/2017 NIA SUMMERS JOSEPHINE S Ot J44.1 CHRONIC OBSTRUCTIVE PULMONARY DISEASE W 06/20/2017 NIA SUMMERS JOSEPHINE S Ot Z90.2 ACQUIRED [...] A J15.1 PNEUMONIA DUE TO PSEUDOMONAS 06/27/2017 EDU GUPTA MD Ot C34.90 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 06/27/2017 EDU GUPTA MD Ot J43.9 EMPHYSEMA, UNSPECIFIED 06/27/2017 EDU GUPTA MD Ot R92.8 OTH ABN AND INCONCLUSIVE FINDINGS ON DX 06/27/2017 JOSEPHINE KRAMER MD Ot C34.2 MALIGNANT NEOPLASM OF MIDDLE LOBE, BRON 06/27/2017 JOSEPHINE KRAMER MD Ot 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, UNSPECIFIED ORGANISM 06/27/2017 JOSEPHINE KRAMER MD Ot J30.9 ALLERGIC RHINITIS, UNSPECIFIED 06/27/2017 JOSEPHINE KRAMER MD S Ot J44.1 CHRONIC [...] MD Ot F41.9 ANXIETY DISORDER, UNSPECIFIED 07/08/2017 SIRDA STOLL MD Ot J40 BRONCHITIS, NOT SPECIFIED ACUTE OR CH 07/08/2017 SIDRA STOLL MD, Ot J44.9 CHRONIC OBSTRUCTIVE PULMONARY DISEASE, U 07/08/2017 SIDRA STOLL MD, Ot K58.9 IRRITABLE BOWEL SYNDROME WITHOUT DIARRHE 07/08/2017 SIDRA STOLL MD, Ot R06.02 SHORTNESS OF BREATH 07/08/2017 SIDRA [...] SMO 07/09/2017 VIVIAN BARRERA APRN Ot Z79.01 STAMP MAKER (CURRENT) USE OF ANTICOAGULANT 07/09/2017 VIVIAN BARRERA [...] F41.9 ANXIETY DISORDER, UNSPECIFIED 07/12/2017 SIDRA STOLL MD Ot J40 BRONCHITIS, NOT SPECIFIED ACUTE OR CH 07/12/2017 SIDRA STOLL MD Ot J44.9 CHRONIC OBSTRUCTIVE PULMONARY DISEASE, U 07/12/2017 SIDRA STOLL MD Ot K58.9 IRRITABLE BOWEL [...] SMO 07/15/2017 VIVIAN BARRERA APRN Ot Z79.01 MCC (CURRENT) USE OF ANTICOAGULANT 07/15/2017 VIVIAN BARRERA APRN Ot Z85.118 PERSONAL HISTORY OF MALIGNANT NEOPLASM O 07/15/2017 VIVIAN BARRERA APRN Ot Z87.19 PERSONAL HISTORY OF OTHER DISEASES OF TH 07/15/2017 VIVIAN BARRERA APRN Ot 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] 07/15/2017 VIVIAN BARRERA APRN Ot Z98.51 TUBAL LIGATION STATUS 07/17/2017 WILBERTO SUMMERS FACC, GIBRAN HANLEY CCDS Ot I48.0 PAROXYSMAL ATRIAL FIBRILLATION 07/17/2017 WILBERTO SUMMERS [facility]ACC, [facility] CCD[facility] Ot J43.8 OTHER EMPHYSEMA 07/17/2017 WILBERTO SUMMERS FACC, [facility] Ot R00.2 PALPITATIONS 07/17/2017 WILBERTO SUMMERS FACC, GIBRAN FACP CCDS Ot R06.09 OTHER FORMS OF DYSPNEA 07/17/2017 WILBERTO SUMMERS FACC, [facility] Ot Z72.0 TOBACCO USE 07/17/2017 WILBERTO SUMMERS FACC, [facility] Ot Z85.118 PERSONAL HISTORY OF MALIGNANT [...] 07/26/2017 JOSE DANIEL BARCENAS DO Ot Z79.01 MCC (CURRENT) USE OF ANTICOAGULANT 07/26/2017 JOSE DANIEL [...] DO Ot F41.9 ANXIETY DISORDER, UNSPECIFIED 07/26/2017 SKYE BARCENAS DOI Ot I48.2 CHRONIC ATRIAL FIBRILLATION 07/26/2017 JOSE [...] 07/26/2017 JOSE DANIEL BARCENAS DO Ot Z79.01 STAMP MAKER (CURRENT) USE OF ANTICOAGULANT 07/26/2017 JOSE DANIEL [...] Ot Z72.0 TOBACCO USE 2017 WILBERTO SUMMERS [facility], ALI FACP CCDS Ot Z85.118 PERSONAL HISTORY OF MALIGNANT NEOPLASM O 08/14/2017 WILBERTO SUMMERS FACC, ALI FACP CCDS Ot I48.0 PAROXYSMAL ATRIAL FIBRILLATION 08/14/2017 WILBERTO KELLEY, ALI FACP CCDS Ot J43.8 OTHER EMPHYSEMA 08/14/2017 WILBERTO KELLEY, ALI FACP CCDS Ot R00.2 PALPITATIONS 08/14/2017 WILBERTO SUMMERS [facility], ALI FACP CCDS Ot R06.09 OTHER FORMS OF DYSPNEA 08/14/2017 WILBERTO SUMMERS [facility], ALI FACP CCDS Ot Z72.0 TOBACCO USE 08/14/2017 WILBERTO SUMMERS [facility], ALI FACP CCDS Ot Z85.118 PERSONAL HISTORY [...] J44.1 CHRONIC OBSTRUCTIVE PULMONARY DISEASE W 08/23/2017 ANGELO KRAMER MDID S Ot 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] 09/06/2017 KHALIDA ARRIETA MD U Ot 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 09/06/2017 KHALIDA ARRIETA MD U Ot R91.1 SOLITARY PULMONARY NODULE 09/06/2017 KHALIDA ARRIETA MD U Ot 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] 09/09/2017 ARRIETA MD, ATMAN U Ot C34.32 MALIGNANT NEOPLASM OF [...] OF LUNG [PART OF] 09/12/2017 MEENAKSHI SUMMERS, KHALIDA U Ot 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 09/12/2017 MEENAKSHI SUMMERS, KHALIDA U Ot R91.1 SOLITARY PULMONARY NODULE 09/12/2017 [...] BAM LOPEZ Ot Z80.2 FAMILY HX OF MALIG NEOPLM OF RESP AND IN 09/13/2017 BAM LOPEZ [...] Z80.2 FAMILY HX OF ELY OCHOA OF RESP AND IN 09/16/2017 BAM LOPEZ Ot Z85.118 PERSONAL HISTORY OF MALIGNANT NEOPLASM O 09/16/2017 BAM LOPEZ Ot Z98.51 TUBAL LIGATION STATUS 09/16/2017 Mihai Serrano 462 ACUTE PHARYNGITIS 09/16/2017 Mihai Serrano 491.20 OBSTRUCTIVE CHRONIC BRONCHITIS, WITHOUT EXACERBATION 09/16/2017 Mihai Serrano 786.2 COUGH 09/16/2017 Mihai Serrano J02.9 ACUTE PHARYNGITIS, UNSPECIFIED 09/16/2017 Mihai Serrano J44.9 CHRONIC OBSTRUCTIVE PULMONARY DISEASE, UNSPECIFIED 09/16/2017 Mihai Serrano R05 COUGH 09/17/2017 NIA SUMMERS, JOSEPHINE S Ot C34.2 MALIGNANT NEOPLASM OF MIDDLE LOBE, [facility] 09/17/2017 NIA SUMMERS, JOSEPHINE S Ot 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, UNSPECIFIED ORGANISM 09/17/2017 NIA SUMMERS, JOSEPHINE S Ot J30.9 ALLERGIC RHINITIS, UNSPECIFIED 09/17/2017 NIA SUMMERS, JOSEPHINE S Ot J44.1 CHRONIC OBSTRUCTIVE PULMONARY DISEASE W 09/17/2017 NIA SUMMERS, JOSEPHINE S Ot 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] 09/20/2017 Jacobson, [place] W 491.21 OBSTRUCTIVE CHRONIC [...] CHRONIC BRONCHITIS WITH (ACUTE) EXACERBATION 09/21/2017 Jacobson, [place] W D53.1 OTHER MEGALOBLASTIC ANEMIAS, 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ASSIFIED 09/21/2017 Jacobson, [place] W J44.1 CHRONIC OBSTRUCTIVE PULMONARY [...] THE CAUSE OF DISEASES CLASSIFIED ELSEWHERE 09/22/2017 Kavon, [place] W D53.1 OTHER MEGALOBLASTIC ANEMIAS, NOT [...] THE CAUSE OF DISEASES CLASSIFIED ELSEWHERE 09/22/2017 Kavon, [place] W D53.1 OTHER MEGALOBLASTIC ANEMIAS, 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ASSIFIED 09/22/2017 Kavon, Julianneu W J44.1 CHRONIC OBSTRUCTIVE PULMONARY DISEASE WITH (ACUTE) EXACERBATION 09/22/2017 Jacobson, [place] W K59.03 DRUG INDUCED CONSTIPATION 09/22/2017 Jacobson, [place] W 041.09 OTHER STREPTOCOCCUS INFECTION IN CONDITIONS CLASSIFIED ELSEWHERE AND OF UNSPECIFIED SITE 09/22/2017 Jacobson, AliciaGeneva W 281.3 OTHER SPECIFIED MEGALOBLASTIC ANEMIAS, 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ASSIFIED 09/22/2017 Jacobson, [place] W 491.21 OBSTRUCTIVE CHRONIC BRONCHITIS WITH (ACUTE) EXACERBATION 09/22/2017 Jacobson, [place] W 564.09 OTHER CONSTIPATION 09/22/2017 Jacobson, [place] W 794.5 09/22/2017 Jacobson, [place] W B95.3 STREPTOCOCCUS PNEUMONIAE THE CAUSE OF DISEASES CLASSIFIED ELSEWHERE 09/22/2017 Kavon, [place] W D53.1 OTHER MEGALOBLASTIC ANEMIAS, NOT [...] 09/22/2017 Jacobson, [place] W 564.09 OTHER CONSTIPATION 09/22/2017, [place] W 794.5 09/22/2017, [place] W 799.02 09/22/2017 Jacobson, [place] W [...] [place] W K59.03 DRUG INDUCED CONSTIPATION 09/22/2017 Jazmyn Jacobson W R09.02 09/22/2017 Jazmyn Jacobson W R94.6 ABNORMAL RESULTS OF THYROID FUNCTION STUDIES 09/22/2017 Jazmyn Jacobson W T50.905A ADVERSE EFF[facility]BIOL SUBST, INIT 10/09/2017 MEENAKSHI SUMMERS, ATMAN U Ot 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, LEFT B 10/21/2017 NIA, JOSEPHINE W 491.20 OBSTRUCTIVE CHRONIC BRONCHITIS, WITHOUT EXACERBATION 10/21/2017 NIA, JOSEPHINE W J44.9 CHRONIC OBSTRUCTIVE PULMONARY DISEASE, UNSPECIFIED 10/21/2017 ANDIE RICHARDS DO Ot 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 10/21/2017 ANDIE RICHARDS DO Ot 305.1 TOBACCO USE DISORDER 10/21/2017 ANDIE RICHARDS DO Ot 496 CHR AIRWAY OBSTRUCT NEC 10/21/2017 ABE HELLER DO Ot 246.9 DISORDER OF THYROID NOS 10/21/2017 ABE HELLER DO Ot 272.4 HYPERLIPIDEMIA NEC/NOS 10/21/2017 ELI HLELER DOISON L Ot E78.5 HYPERLIPIDEMIA, UNSPECIFIED 10/21/2017 ALESSANDRO MARTINEZ DO Ot M47.812 SPONDYLOSIS W/O MYELOPATHY OR RADICULOPA 10/21/2017 ALESSANDRO MARTINEZ DO Ot M50.20 OTHER CERVICAL DISC DISPLACEMENT, [facility] 10/21/2017 NEHA ROSENBERG APRN Ot C34.90 MALIGNANT NEOPLASM OF UNSP [facility] 10/21/2017 NEHA ROSENBERG APRN Ot F17.210 NICOTINE DEPENDENCE, CIGARETTES, UNCOMPL 10/21/2017 NEHA ROSENBERG APRN Ot J44.9 CHRONIC OBSTRUCTIVE PULMONARY DISEASE, U 10/21/2017 NEHA ROSENBERG APRN Ot R91.1 SOLITARY PULMONARY NODULE 10/21/2017 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 Ot I48.0 PAROXYSMAL ATRIAL FIBRILLATION 10/21/2017 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 Ot J44.9 CHRONIC OBSTRUCTIVE PULMONARY DISEASE, U 10/21/2017 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 Ot R06.09 OTHER FORMS OF DYSPNEA 10/21/2017 BAIMA, CONNIE L STEAM DISTRIBUTION SUPERVISOR Ot R07.9 CHEST PAIN, UNSPECIFIED 10/21/2017 WILBERTO SUMMERS FACC, ALI FACP CCDS Ot C34.90 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 10/21/2017 WILBERTO SUMMERS FACC, ALI FACP CCDS Ot I48.0 PAROXYSMAL ATRIAL FIBRILLATION 10/21/2017 WILBERTO SUMMERS FACC, ALI FACP CCDS Ot J43.8 OTHER EMPHYSEMA 10/21/2017 ZAIN SUMMERS, KEM Ot C34.90 MALIGNANT NEOPLASM [...] PART OF RIGHT 10/21/2017 JOSEPHINE KRAMER MD S Ot 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 10/21/2017 JOSEPHINE KRAMER MD S Ot R91.1 SOLITARY PULMONARY NODULE 10/21/2017 Ot N88.8 OTHER SPECIFIED NONINFLAMMATORY DISORDER 10/21/2017 Ot Z12.31 ENCNTR SCREEN MAMMOGRAM FOR MALIGNANT NE 10/21/2017 JOSEPHINE KRAMER MD S Ot 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 10/21/2017 JOSEPHINE KRAMER MD S Ot R91.1 SOLITARY PULMONARY NODULE 10/21/2017 JOSEPHINE KRAMER MD S Ot 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] 10/21/2017 BRIT ROSENBERG DO Ot K59.00 CONSTIPATION, UNSPECIFIED 10/21/2017 BRIT ROSENBERG DO Ot R53.83 OTHER FATIGUE 10/21/2017 BRTI ROSENBERG DO Ot Z11.59 ENCOUNTER FOR SCREENING FOR OTHER VIRAL 10/21/2017 CANDY SUMMERS, EDU L Ot C34.90 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 10/21/2017 EDU GUPTA MD L Ot J43.9 EMPHYSEMA, UNSPECIFIED 10/21/2017 EDU GUPTA [...] OF MALIGNANT NEOPLASM O 10/21/2017 MEENAKSHI SUMMERS, ATMCRISTIANA U Ot 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 10/21/2017 MEENAKSHI SUMMERS, ATMCRISTIANA U Ot R91.1 SOLITARY PULMONARY NODULE 10/21/2017 MEENAKSHI SUMMERS, ATMCRISTIANA U Ot 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] 10/21/2017 MEENAKSHI SUMMERS, ATMCRISTIANA U Ot 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, LEFT B 10/21/2017 JOSEPHINE KRAMER MD S Ot C34.2 MALIGNANT [...] Ot E66.9 OBESITY, UNSPECIFIED 11/06/2017 WILBERTO SUMMERS FACJose, ALI FACP CCDS Ot I48.0 PAROXYSMAL ATRIAL FIBRILLATION 11/06/2017 WILBERTO SUMMERS FACC, ALI FACP CCDS Ot J44.9 CHRONIC OBSTRUCTIVE PULMONARY DISEASE, U 11/06/2017 WILBERTO SUMMERS FACC, ALI FACP CCDS Ot R00.2 PALPITATIONS 11/06/2017 WILBERTO SUMMERS FACJose, ALI FACP CCDS Ot R06.02 SHORTNESS OF [...] FATIGUE 11/14/2017 VIVIAN BARRERA APRN Ot Z79.01 MCC (CURRENT) USE OF ANTICOAGULANT 11/14/2017 VIVIAN BARRERA APRN Ot Z79.51 MCC (CURRENT) USE OF INHALED STERO 11/14/2017 VIVIAN BARRERA APRN Ot Z79.52 STAMP MAKER (CURRENT) USE OF SYSTEMIC STER 11/14/2017 VIVIAN [...] FATIGUE 11/18/2017 VIVIAN BARRERA APRN Ot Z79.01 MCC (CURRENT) USE OF ANTICOAGULANT 11/18/2017 VIVIAN BARRERA APRN Ot Z79.51 STAMP MAKER (CURRENT) USE OF INHALED STERO 11/18/2017 VIVIAN BARRERA APRN Ot Z79.52 MCC (CURRENT) USE OF SYSTEMIC STER 11/18/2017 VIVIAN BARRERA APRN Ot Z80.1 FAMILY HISTORY OF MALIG NEOPLASM OF TRAC 11/18/2017 VIVIAN BARRERA APRN Ot Z87.19 PERSONAL HISTORY OF OTHER DISEASES OF 11/18/2017 VIVIAN BARRERA APRN Ot Z98.1 ARTHRODESIS STATUS 11/18/2017 VIVIAN BARRERA APRN Ot Z98.51 TUBAL LIGATION STATUS 11/26/2017 WILBERTO SUMMERS FACC, GIBRAN FACP CCDS Ot E66.9 OBESITY, UNSPECIFIED 11/26/2017 WILBERTO SUMMERS FACC, ALI FACP CCDS Ot I48.0 PAROXYSMAL ATRIAL FIBRILLATION 11/26/2017 WILBERTO SUMMERS FACC, [facility] CCDS Ot J44.9 CHRONIC OBSTRUCTIVE PULMONARY DISEASE, U 11/26/2017 WILBERTO SUMMERS FAC, ALI FACP CCDS Ot R00.2 PALPITATIONS 11/26/2017 WILBERTO SUMMERS FAC, [facility] CCDS Ot R06.02 SHORTNESS OF BREATH 11/26/2017 WILBERTO SUMMERS [facility], [facility] CCDS Ot Z72.0 TOBACCO USE 11/27/2017 Brit Rosenberg 780.79 OTHER MALAISE AND FATIGUE 11/27/2017 Brit Rosenberg R53.1 WEAKNESS 12/06/2017 Brit Rosenberg A 780.79 OTHER MALAISE AND FATIGUE 12/06/2017 Brit Rosenberg R53.1 WEAKNESS 12/12/2017 BRIT ROSENBERG DO Ot [...] DISORDER W RADICULOPATHY, 12/31/2017 BRIT ROSENBERG DO Ot M99.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 12/31/2017 BRIT ROSENBERG DO Ot Z98.1 ARTHRODESIS STATUS 01/02/2018 YOMI BRIGGS DO Ot Z01.818 ENCOUNTER FOR OTHER PREPROCEDURAL EXAMIN 01/07/2018 BRIT ROSENBERG DO Ot M48.02 SPINAL STENOSIS, CERVICAL REGION 01/07/2018 BRIT ROSENBERG DO Ot M50.13 CERVICAL DISC DISORDER W RADICULOPATHY, 01/07/2018 BRIT ROSENBERG DO Ot M99.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 01/07/2018 BRIT ROSENBERG DO Ot Z98.1 ARTHRODESIS STATUS 02/14/2018 LISANDRA CORONA MD Ot Z01.818 ENCOUNTER FOR OTHER PREPROCEDURAL EXAMIN 02/17/2018 CJ SUMMERS, LISANDRA Novak Ot Z01.818 ENCOUNTER FOR OTHER PREPROCEDURAL EXAMIN 02/17/2018 CJ SUMMERS, LISANDRA Novak Ot Z01.818 ENCOUNTER FOR OTHER PREPROCEDURAL EXAMIN 02/18/2018 CJ SUMMERS, LISANDRA Novak Ot F17.210 NICOTINE DEPENDENCE, CIGARETTES, UNCOMPL 02/18/2018 CJ SUMMERS, LISANDRA Novak Ot I48.91 UNSPECIFIED ATRIAL FIBRILLATION 02/18/2018 CJ SUMMERS, LISANDRA Novak Ot J44.9 CHRONIC OBSTRUCTIVE PULMONARY DISEASE, U 02/18/2018 LISANDRA CORONA MD Ot J45.909 UNSPECIFIED ASTHMA, UNCOMPLICATED 02/18/2018 LISANDRA CORONA MD Ot N32.81 OVERACTIVE BLADDER 02/18/2018 LISANDRA CORONA MD Ot N36.42 INTRINSIC SPHINCTER DEFICIENCY (ISD) 02/18/2018 LISANDRA CORONA MD Ot N39.46 MIXED INCONTINENCE 02/18/2018 LISANDRA CORONA MD Ot Z79.01 MCC (CURRENT) USE OF ANTICOAGULANT 02/18/2018 LISANDRA CORONA MD Ot Z79.899 OTHER STAMP MAKER (CURRENT) DRUG THERAPY 02/20/2018 LISANDRA CORONA MD [...] INCONTINENCE 02/20/2018 LISANDRA CORONA MD Ot Z79.01 STAMP MAKER (CURRENT) USE OF ANTICOAGULANT 02/20/2018 LISANDRA CORONA MD Ot Z79.899 OTHER MCC (CURRENT) DRUG THERAPY 02/20/2018 LISANDRA CORONA MD Ot F17.210 NICOTINE DEPENDENCE, CIGARETTES, UNCOMPL 02/20/2018 CJ SUMMERS, LISANDRA Novak Ot I48.91 UNSPECIFIED ATRIAL FIBRILLATION 02/20/2018 LISANDRA CORONA MD, Ot J44.9 CHRONIC OBSTRUCTIVE PULMONARY DISEASE, U 02/20/2018 LISANDRA CORONA MD, Ot J45.909 UNSPECIFIED ASTHMA, UNCOMPLICATED 02/20/2018 LISANDRA CORONA MD Ot N32.81 OVERACTIVE BLADDER 02/20/2018 LISANDRA CORONA MD, Ot N36.42 INTRINSIC SPHINCTER DEFICIENCY (ISD) 02/20/2018 LISANDRA CORONA MD, Ot N39.46 MIXED INCONTINENCE 02/20/2018 LISANDRA CORONA MD, Ot Z79.01 STAMP MAKER (CURRENT) USE OF ANTICOAGULANT 02/20/2018 LISANDRA CORONA MD, Ot Z79.899 OTHER MCC (CURRENT) DRUG THERAPY 02/23/2018 LISANDRA CORONA MD Ot Z01.818 ENCOUNTER FOR OTHER PREPROCEDURAL EXAMIN 02/27/2018 Amie Herndon S80.811A ABRASION, RIGHT LOWER LEG, INITIAL ENCOUNTER 03/10/2018 NIA SUMMERS, JOSEPHINE Valverde Ot J45.50 SEVERE PERSISTENT ASTHMA, UNCOMPLICATED 03/10/2018 [...] DISEASE WITHOUT 03/12/2018 JUSTO MAYA Ot Z79.51 MCC (CURRENT) USE OF INHALED STERO 03/12/2018 JUSTO [...] MAYA Ot Z98.51 TUBAL LIGATION STATUS 03/12/2018 MARYA MAYAIS Ot Z99.81 DEPENDENCE ON SUPPLEMENTAL OXYGEN 03/14/2018 JUSTO MAYA Ot E78.00 PURE HYPERCHOLESTEROLEMIA, UNSPECIFIED 03/14/2018 JUSTO MAYA Ot F17.210 NICOTINE DEPENDENCE, CIGARETTES, UNCOMPL 03/14/2018 JUSTO MYAA Ot F32.9 MAJOR DEPRESSIVE DISORDER, SINGLE EPISOD 03/14/2018 JUSTO MAYA Ot F41.9 ANXIETY DISORDER, UNSPECIFIED 03/14/2018 JUSTO MAYA Ot I48.91 UNSPECIFIED ATRIAL FIBRILLATION 03/14/2018 JUSTO MAYA Ot J44.1 CHRONIC OBSTRUCTIVE PULMONARY DISEASE W 03/14/2018 JUSTO MAYA Ot K21.9 GASTRO-ESOPHAGEAL REFLUX DISEASE WITHOUT 03/14/2018 JUSTO MAYA Ot Z79.51 STAMP MAKER (CURRENT) USE OF INHALED STERO 03/14/2018 JUSTO [...] MAYA Ot Z98.51 TUBAL LIGATION STATUS 03/14/2018 MARYA MAYAIS Ot Z99.81 DEPENDENCE ON SUPPLEMENTAL OXYGEN 04/14/2018 ANDIE RICHARDS DO Ot 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 04/14/2018 SUSIE ANDIE Ot 305.1 TOBACCO USE DISORDER 04/14/2018 ANDIE RICHARDS DO Ot 496 CHR AIRWAY OBSTRUCT NEC 04/14/2018 PINA LEARYELIABE Luz Marina Ot 246.9 DISORDER OF THYROID NOS 04/14/2018 PINA LEARYABE Ot 272.4 HYPERLIPIDEMIA NEC/NOS 04/14/2018 PINA LEARYABE L Ot E78.5 HYPERLIPIDEMIA, UNSPECIFIED 04/14/2018 ALESSANDRO MARTINEZ DO P Ot M47.812 SPONDYLOSIS W/O MYELOPATHY OR RADICULOPA 04/14/2018 ALESSANDRO MARTINEZ DO P Ot M50.20 OTHER CERVICAL DISC DISPLACEMENT, [facility] 04/14/2018 NEHA ROSENBERG WHITEPRINTING MACHINE OPERATOR Ot C34.90 MALIGNANT NEOPLASM OF UNSP PART OF [facility] 04/14/2018 NEHA ROSENBERG WHITEPRINTING MACHINE OPERATOR Ot F17.210 NICOTINE DEPENDENCE, CIGARETTES, UNCOMPL 04/14/2018 NEHA ROSENBERG WHITEPRINTING MACHINE OPERATOR Ot J44.9 CHRONIC OBSTRUCTIVE PULMONARY DISEASE, U 04/14/2018 NEHA ROSENBERG WHITEPRINTING MACHINE OPERATOR Ot R91.1 SOLITARY PULMONARY NODULE 04/14/2018 JUVENCIOCONNIE BROWNING Luz Marina STEAM DISTRIBUTION SUPERVISOR Ot I48.0 PAROXYSMAL ATRIAL FIBRILLATION 04/14/2018 HENRI CONNIE Luz Marina STEAM DISTRIBUTION SUPERVISOR Ot J44.9 CHRONIC OBSTRUCTIVE PULMONARY DISEASE, U 04/14/2018 BAICONNIE BROWNING L STEAM DISTRIBUTION SUPERVISOR Ot R06.09 OTHER FORMS OF DYSPNEA 04/14/2018 BAIMACONNIE L STEAM DISTRIBUTION SUPERVISOR Ot R07.9 CHEST PAIN, UNSPECIFIED 04/14/2018 WILBERTO SUMMERS FACC, ALI FACP CCDS Ot C34.90 MALIGNANT NEOPLASM OF UNSP PART [facility] 04/14/2018 WILBERTO SUMMERS FACC, ALI FACP CCDS Ot I48.0 PAROXYSMAL ATRIAL FIBRILLATION 04/14/2018 WILBERTO SUMMERS FACC, ALI FACP CCDS Ot J43.8 OTHER EMPHYSEMA 04/14/2018 ZAIN SUMMERS, KEM Ot C34.90 MALIGNANT NEOPLASM OF UNSP PART [facility] 04/14/2018 ZAIN SUMMERS, KEM Ot M89.8X0 OTHER SPECIFIED DISORDERS OF BONE, MULTI 04/14/2018 WILBERTO SUMMERS FACC, ALI FACP CCDS Ot I48.0 PAROXYSMAL ATRIAL FIBRILLATION 04/14/2018 WILBERTO SUMMERS FAC, ALI FACP CCDS Ot J43.8 OTHER EMPHYSEMA 04/14/2018 WILBERTO SUMMERS FAC, ALI FACP CCDS Ot R00.2 PALPITATIONS 04/14/2018 MEENAKSHI SUMMERS, KHALIDA U Ot C34.90 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 04/14/2018 BRIT ROSENBERG DO M Ot F41.9 ANXIETY DISORDER, UNSPECIFIED 04/14/2018 BRIT ROSENBERG DO M Ot G89.4 CHRONIC PAIN SYNDROME 04/14/2018 BRIT ROSENBERG DO M Ot I48.0 PAROXYSMAL ATRIAL FIBRILLATION 04/14/2018 BRIT ROSENBERG DO M Ot M47.812 SPONDYLOSIS W/O MYELOPATHY OR RADICULOPA 04/14/2018 MEENAKSHI SUMMERS, ATMCRISTIANA U Ot 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 04/14/2018 NIA SUMMERS, JOSEPHINE S Ot 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 04/14/2018 JOSEPHINE KRAMER MD S Ot R91.1 SOLITARY PULMONARY NODULE 04/14/2018 Ot N88.8 OTHER SPECIFIED NONINFLAMMATORY DISORDER 04/14/2018 Ot Z12.31 ENCNTR SCREEN MAMMOGRAM FOR MALIGNANT NE 04/14/2018 NIA SUMMERS, JOSEPHINE S Ot 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 04/14/2018 JOSEPHINE KRAMER MD S Ot R91.1 SOLITARY PULMONARY NODULE 04/14/2018 NIA SUMMERS, JOSEPHINE S Ot 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] 04/14/2018 BRIT ROSENBERG DO M Ot K59.00 CONSTIPATION, UNSPECIFIED 04/14/2018 BRIT ROSENBERG DO M Ot R53.83 OTHER FATIGUE 04/14/2018 BRIT ROSENBERG DO M Ot Z11.59 ENCOUNTER FOR SCREENING FOR OTHER VIRAL 04/14/2018 CANDY SUMMERS, EDU Raza Ot C34.90 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 04/14/2018 CANDY SUMMERS, EDU Raza Ot J43.9 EMPHYSEMA, UNSPECIFIED 04/14/2018 EDU GUPTA MD Ot R92.8 OTH ABN AND INCONCLUSIVE FINDINGS ON DX 04/14/2018 WILBERTO SUMMERS FAC, ALI FAC CCDS Ot I48.0 PAROXYSMAL ATRIAL FIBRILLATION 04/14/2018 WILBERTO KELLEYC, ALI FACP CCDS Ot J43.8 OTHER EMPHYSEMA 04/14/2018 WILBERTO KELLEYC, ALI FACP CCDS Ot R00.2 PALPITATIONS 04/14/2018 WILBERTO SUMMERS FACC, ALI FACP CCDS Ot R06.09 OTHER FORMS OF DYSPNEA 04/14/2018 WILBERTO KELLEYC, ALI FACP CCDS Ot Z72.0 TOBACCO USE 04/14/2018 WILBERTO SUMMERS FACC, ALI FACP CCDS Ot Z85.118 PERSONAL HISTORY OF MALIGNANT NEOPLASM O 04/14/2018 MEENAKSHI SUMMERS, ATMAN U Ot 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 04/14/2018 MEENAKSHI SUMMERS, ATMAN U Ot R91.1 SOLITARY PULMONARY NODULE 04/14/2018 MEENAKSHI SUMMESR, ATMAN U Ot 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] 04/14/2018 MEENAKSHI SUMMERS, ATMAN U Ot 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, LEFT B 04/14/2018 NIA SUMMERS, JOSEPHINE S Ot C34.2 MALIGNANT NEOPLASM OF MIDDLE LOBE, BRONC 04/14/2018 NIA SUMMERS, JOSEPHINE S Ot 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, UNSPECIFIED ORGANISM 04/14/2018 NIA SUMMERS, JOSEPHINE S Ot J30.9 ALLERGIC RHINITIS, UNSPECIFIED 04/14/2018 NIA SUMMERS, JOSEPHINE S Ot J44.1 CHRONIC [...] CCDS Ot R06.02 SHORTNESS OF BREATH 04/14/2018 WILBERTO SUMMERS FACC, ALI FACP CCDS Ot Z72.0 TOBACCO USE 04/14/2018 BRIT ROSENBERG DO Ot M48.02 SPINAL STENOSIS, CERVICAL REGION 04/14/2018 BRIT ROSENBERG DO Ot M50.13 CERVICAL DISC DISORDER W RADICULOPATHY, 04/14/2018 CHET LEARY AMANDA Gary Ot M99.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 04/14/2018 CHET LEARY AMANDA Gary Ot Z98.1 ARTHRODESIS STATUS 04/14/2018 YOMI BRIGGS DO Ot Z01.818 ENCOUNTER FOR OTHER PREPROCEDURAL EXAMIN 04/14/2018 JOSEPHINE KRAMER MD S Ot J45.50 SEVERE PERSISTENT ASTHMA, UNCOMPLICATED 04/14/2018 JOSEPHINE KRAMER MD S Ot J82 PULMONARY [...] BRIT ROSENBERG DO Ot R51 HEADACHE 04/15/2018 CHET LEARY AMANDA Gary Ot Z85.118 PERSONAL HISTORY OF MALIGNANT NEOPLASM O 04/20/2018 KERI PRINGLE 466.0 ACUTE BRONCHITIS 04/20/2018 KERI PRINGLE 491.22 OBSTRUCTIVE CHRONIC BRONCHITIS WITH ACUTE BRONCHITIS 04/20/2018 KERI PRINGLE 784.0 HEADACHE 04/20/2018 KERI PRINGLE J20.9 ACUTE BRONCHITIS, UNSPECIFIED 04/20/2018 KERI PRINGLE J44.0 CHRONIC OBSTRUCTIVE PULMON DISEASE W ACUTE LOWER RESP INFCT 04/20/2018 KERI PRINGLE R51 HEADACHE 04/25/2018 JOSEPHINE KRAMER MD S Ot J45.50 SEVERE PERSISTENT ASTHMA, UNCOMPLICATED 04/25/2018 JOSEPHINE KRAMER MD S Ot J82 PULMONARY EOSINOPHILIA, 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 04/25/2018 JOSEPHINE KRAMER MD S Ot J45.50 SEVERE PERSISTENT ASTHMA, UNCOMPLICATED 04/25/2018 JOSEPHINE KRAMER MD Ot J82 PULMONARY EOSINOPHILIA, 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 05/14/2018 YOMI BRIGGS DO Ot D25.9 LEIOMYOMA OF UTERUS, UNSPECIFIED 05/14/2018 YOMI BRIGGS DO Ot N95.0 POSTMENOPAUSAL BLEEDING 05/14/2018 CHET LEARY BRIT M Ot G89.4 CHRONIC PAIN SYNDROME 05/14/2018 CHET LEARY BRIT M Ot R20.0 ANESTHESIA OF SKIN 05/14/2018 CHET DO, BRIT M Ot R25.1 TREMOR, UNSPECIFIED 05/14/2018 ROSENBERG DO, BRIT M Ot R25.3 FASCICULATION 05/14/2018 ROSENBERG DO, BRIT M Ot R27.0 ATAXIA, UNSPECIFIED 05/14/2018 ROSENBERG DO, BRIT M Ot R51 HEADACHE 05/14/2018 CHET LEARY, BRIT M Ot Z85.118 PERSONAL HISTORY OF MALIGNANT NEOPLASM O 05/20/2018 JOSEPHINE KRAMER MD Ot J45.50 SEVERE PERSISTENT ASTHMA, UNCOMPLICATED 05/20/2018 JOSEPHINE KRAMER MD S Ot J82 PULMONARY EOSINOPHILIA, 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 05/20/2018 CHET LEARY BRIT M Ot G89.4 CHRONIC PAIN SYNDROME 05/20/2018 ROSENBERG DO, BRIT M Ot R20.0 ANESTHESIA OF SKIN 05/20/2018 ROSENBERG , BRIT M Ot R25.1 TREMOR, UNSPECIFIED 05/20/2018 ROSENBERG DO, BRIT M Ot R25.3 FASCICULATION 05/20/2018 ROSENBERG , BRIT M Ot R27.0 ATAXIA, UNSPECIFIED 05/20/2018 CHET LEARY, BRIT M Ot R51 HEADACHE 05/20/2018 CHET LEARY BRIT M Ot Z85.118 PERSONAL HISTORY OF MALIGNANT NEOPLASM O 05/21/2018 JOSEPHINE KRAMER MD Ot J45.50 SEVERE PERSISTENT ASTHMA, UNCOMPLICATED 05/21/2018 JOSEPHINE KRAMER MD S Ot 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 PULMONARY EOSINOPHILIA, 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 05/23/2018 JOSEPHINE KRAMER MD Ot J45.50 SEVERE PERSISTENT ASTHMA, UNCOMPLICATED 05/23/2018 JOSEPHINE KRAMER MD Ot J82 PULMONARY EOSINOPHILIA, 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 05/23/2018 JOSEPHINE KRAMER MD Ot J45.50 SEVERE PERSISTENT ASTHMA, UNCOMPLICATED 05/23/2018 NIA MD, JOSEPHINE S Ot J82 PULMONARY EOSINOPHILIA, 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 05/26/2018 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 Ot F32.9 MAJOR DEPRESSIVE DISORDER, SINGLE EPISOD 05/26/2018 VIVIAN BARRERA APRN Ot F41.9 ANXIETY DISORDER, UNSPECIFIED 05/26/2018 VIVIAN BARRERA APRN Ot I25.10 ATHSCL HEART DISEASE OF [place] CORONARY 05/26/2018 VIVIAN BARRERA APRN Ot I48.91 UNSPECIFIED ATRIAL FIBRILLATION 05/26/2018 VIVIAN BARRERA APRN Ot J44.9 CHRONIC OBSTRUCTIVE PULMONARY DISEASE, U 05/26/2018 VIVIAN BARRERA APRN Ot K21.9 GASTRO-ESOPHAGEAL REFLUX DISEASE WITHOUT 05/26/2018 VIVIAN BARRERA APRN Ot R07.81 PLEURODYNIA 05/26/2018 VIVIAN BARRERA APRN Ot R07.89 OTHER CHEST PAIN 05/26/2018 VIVIAN BARRERA APRN Ot R10.11 RIGHT UPPER QUADRANT PAIN 05/26/2018 VIVIAN BARRERA APRN Ot Z77.22 CNTCT W AND EXPSR TO ENVIRON TOBACCO SMO 05/26/2018 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 Ot Z79.51 MCC (CURRENT) USE OF INHALED STERO 05/26/2018 VIVIAN BARRERA APRN Ot Z80.1 FAMILY HISTORY OF MALIG NEOPLASM OF [place] 05/26/2018 VIVIAN BARRERA APRN Ot Z87.19 PERSONAL HISTORY OF OTHER DISEASES OF TH 05/26/2018 VIVIAN BARRERA APRN Ot Z92.21 PERSONAL HISTORY OF ANTINEOPLASTIC CHEMO 05/26/2018 VIVIAN BARRERA APRN Ot Z98.1 ARTHRODESIS STATUS 05/28/2018 VIVIAN BARRERA APRN Ot F32.9 MAJOR DEPRESSIVE DISORDER, SINGLE EPISOD 05/28/2018 VIVIAN BARRERA APRN Ot F41.9 ANXIETY DISORDER, UNSPECIFIED 05/28/2018 VIVIAN BARRERA APRN Ot I25.10 ATHSCL HEART DISEASE OF [place] CORONARY 05/28/2018 VIVIAN BARRERA APRN Ot I48.91 UNSPECIFIED ATRIAL FIBRILLATION 05/28/2018 VIVIAN BARRERA APRN Ot J44.9 CHRONIC OBSTRUCTIVE PULMONARY DISEASE, U 05/28/2018 VIVIAN BARRERA APRN Ot K21.9 GASTRO-ESOPHAGEAL REFLUX DISEASE WITHOUT 05/28/2018 VIVIAN BARRERA APRN Ot R07.81 PLEURODYNIA 05/28/2018 VIVIAN BARRERA APRN Ot R07.89 OTHER CHEST PAIN 05/28/2018 VIVIAN BARRERA APRN Ot R10.11 RIGHT UPPER QUADRANT PAIN 05/28/2018 VIVIAN BARRERA APRN Ot Z77.22 CNTCT W AND EXPSR TO ENVIRON TOBACCO SMO 05/28/2018 VIVIAN BARRERA APRN Ot Z79.51 STAMP MAKER (CURRENT) USE OF INHALED STERO 05/28/2018 VIVIAN BARRERA APRN Ot Z80.1 FAMILY HISTORY OF MALIG NEOPLASM OF [place] 05/28/2018 VIVIAN BARRERA APRN Ot Z87.19 PERSONAL HISTORY OF OTHER DISEASES OF TH 05/28/2018 VIVIAN BARRERA APRN Ot Z92.21 PERSONAL HISTORY OF ANTINEOPLASTIC CHEMO 05/28/2018 VIVIAN BARRERA APRN Ot Z98.1 ARTHRODESIS STATUS 06/10/2018 YOMI BRIGGS DO Ot D25.9 LEIOMYOMA OF UTERUS, UNSPECIFIED 06/10/2018 YOMI BRIGGS DO Ot N95.0 POSTMENOPAUSAL BLEEDING 06/20/2018 JOSEPHINE KRAMER MD S Ot J45.50 SEVERE PERSISTENT ASTHMA, UNCOMPLICATED 06/20/2018 JOSEPHINE KRAMER MD S Ot J82 PULMONARY EOSINOPHILIA, 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 06/24/2018 JamisonConnie A A 491.21 OBSTRUCTIVE CHRONIC BRONCHITIS WITH (ACUTE) EXACERBATION 06/24/2018 JamisonConnie A W 786.05 SHORTNESS OF BREATH 06/24/2018 Connie Swift A J44.1 CHRONIC OBSTRUCTIVE PULMONARY DISEASE W (ACUTE) EXACERBATION 06/24/2018 JamisonConnie A W R06.02 SHORTNESS OF BREATH 06/25/2018 ANGELO KRAMER MDID S Ot J45.50 SEVERE PERSISTENT ASTHMA, UNCOMPLICATED 06/25/2018 JOSEPHINE KRAMER MD S Ot J82 PULMONARY EOSINOPHILIA, 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 06/26/2018 JOSEPHINE KRAMER MD S Ot J45.50 SEVERE PERSISTENT ASTHMA, UNCOMPLICATED 07/01/2018 JOSEPHINE KRAMER MD S Ot J45.50 SEVERE PERSISTENT ASTHMA, UNCOMPLICATED 07/07/2018 ANDIE RICHARDS DO Ot 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 07/07/2018 ANDIE RICHARDS DO Ot 305.1 TOBACCO USE DISORDER 07/07/2018 SUSIE DO ANDIE eVga Ot 496 CHR AIRWAY OBSTRUCT NEC 07/07/2018 ABE HELLER DO Ot 246.9 DISORDER OF THYROID NOS 07/07/2018 ABE HELLER DO L Ot 272.4 HYPERLIPIDEMIA NEC/NOS 07/07/2018 PINA LEARY ABE L Ot E78.5 HYPERLIPIDEMIA, UNSPECIFIED 07/07/2018 ALESSANDRO MARTINEZ DO Ot M47.812 SPONDYLOSIS W/O MYELOPATHY OR RADICULOPA 07/07/2018 ALESSANDRO MARTINEZ DO Ot M50.20 OTHER CERVICAL DISC DISPLACEMENT, [facility] 07/07/2018 NEHA ROSENBERG APRN Ot C34.90 MALIGNANT NEOPLASM OF UNSP PART OF [facility] 07/07/2018 NEHA ROSENBERG WHITEPRINTING MACHINE OPERATOR Ot F17.210 NICOTINE DEPENDENCE, CIGARETTES, UNCOMPL 07/07/2018 NEHA ROSENBERG WHITEPRINTING MACHINE OPERATOR Ot J44.9 CHRONIC OBSTRUCTIVE PULMONARY DISEASE, U 07/07/2018 NEHA ROSENBERG APRN Ot R91.1 SOLITARY PULMONARY NODULE 07/07/2018 JUVENCIOCONNIE BROWNING Luz Marina STEAM DISTRIBUTION SUPERVISOR Ot I48.0 PAROXYSMAL ATRIAL FIBRILLATION 07/07/2018 JUVENCIONALLELY CONNIE Luz Marina STEAM DISTRIBUTION SUPERVISOR Ot J44.9 CHRONIC OBSTRUCTIVE PULMONARY DISEASE, U 07/07/2018 JUVENCIOCONNIE BROWNING Luz Marina STEAM DISTRIBUTION SUPERVISOR Ot R06.09 OTHER FORMS OF DYSPNEA 07/07/2018 JUVENCIONALLELY CONNIE Luz Marina STEAM DISTRIBUTION SUPERVISOR Ot R07.9 CHEST PAIN, UNSPECIFIED 07/07/2018 WILBERTO SUMMERS FACC, GIBRAN FACP CCDS Ot C34.90 MALIGNANT NEOPLASM OF UNSP PART [facility] 07/07/2018 WILBERTO SUMMERS FACC, ALI FACP CCDS Ot I48.0 PAROXYSMAL ATRIAL FIBRILLATION 07/07/2018 WILBERTO SUMMERS FACC, ALI FACP CCDS Ot J43.8 OTHER EMPHYSEMA 07/07/2018 KEM PITTMAN MD Ot C34.90 MALIGNANT NEOPLASM OF UN[place] PART [facility] 07/07/2018 KEM PITTMAN MD Ot M89.8X0 OTHER SPECIFIED DISORDERS OF BONE, MULTI 07/07/2018 WILBERTO SUMMERS FACC, ALI FACP CCDS Ot I48.0 PAROXYSMAL ATRIAL FIBRILLATION 07/07/2018 WILBERTO MD FACC, ALI FACP CCDS Ot J43.8 OTHER EMPHYSEMA 07/07/2018 WILBERTO SUMMERS FACC, ALI FACP CCDS Ot R00.2 PALPITATIONS 07/07/2018 MEENAKSHI SUMMERS, KHALIDA U Ot C34.90 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 07/07/2018 BRIT ROSENBERG DO Ot F41.9 ANXIETY DISORDER, UNSPECIFIED 07/07/2018 BRIT ROSENBERG DO Ot G89.4 CHRONIC PAIN SYNDROME 07/07/2018 BRIT ROSENBERG DO Ot I48.0 PAROXYSMAL ATRIAL FIBRILLATION 07/07/2018 BRIT ROSENBERG DO Ot M47.812 SPONDYLOSIS W/O MYELOPATHY OR RADICULOPA 07/07/2018 MEENAKSHI SUMMERS, KHALIDA U Ot 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 07/07/2018 JOSEPHINE KRAMER MD S Ot 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 07/07/2018 JOSEPHINE KRAMER MD S Ot R91.1 SOLITARY PULMONARY NODULE 07/07/2018 Ot N88.8 OTHER SPECIFIED NONINFLAMMATORY DISORDER 07/07/2018 Ot Z12.31 ENCNTR SCREEN MAMMOGRAM FOR MALIGNANT NE 07/07/2018 JOSEPHINE KRAMER MD S Ot 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 07/07/2018 JOSEPHINE KRAMER MD S Ot R91.1 SOLITARY PULMONARY NODULE 07/07/2018 JOSEPHINE KRAMER MD S Ot 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] 07/07/2018 BRIT ROSENBERG DO Ot K59.00 CONSTIPATION, UNSPECIFIED 07/07/2018 BRIT ROSENBERG DO Ot R53.83 OTHER FATIGUE 07/07/2018 BRIT ROSENBERG DO Ot Z11.59 ENCOUNTER FOR SCREENING FOR OTHER VIRAL 07/07/2018 EDU GUPTA MD Ot C34.90 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 07/07/2018 EDU GUPTA MD Ot J43.9 EMPHYSEMA, UNSPECIFIED 07/07/2018 EDU GUPTA MD Ot R92.8 OTH ABN AND INCONCLUSIVE FINDINGS ON DX 07/07/2018 WILBERTO SUMMERS FACC, ALI FACP CCDS Ot I48.0 PAROXYSMAL ATRIAL FIBRILLATION 07/07/2018 WILBERTO SUMMERS FACC, ALI FACP CCDS Ot J43.8 OTHER EMPHYSEMA 07/07/2018 WILBERTO SUMMERS FACC, ALI FACP CCDS Ot R00.2 PALPITATIONS 07/07/2018 WILBERTO SUMMERS FACC, ALI FACP CCDS Ot R06.09 OTHER FORMS OF DYSPNEA 07/07/2018 WILBERTO SUMMERS FACC, ALI FACP CCDS Ot Z72.0 TOBACCO USE 07/07/2018 WILBERTO SUMMERS FACC, ALI FACP CCDS Ot Z85.118 PERSONAL HISTORY OF MALIGNANT NEOPLASM O 07/07/2018 MEENAKSHI SUMMERS, ATMAN U Ot 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 07/07/2018 MEENAKSHI SUMMERS, ATMAN U Ot R91.1 SOLITARY PULMONARY NODULE 07/07/2018 MEENAKSHI SUMMERS, ATMAN U Ot 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] 07/07/2018 MEENAKSHI SUMMERS, ATMAN U Ot 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, LEFT B 07/07/2018 NIA SUMMERS, JOSEPHINE S Ot C34.2 MALIGNANT NEOPLASM OF MIDDLE LOBE, BRONC 07/07/2018 NIA SUMMERS JOSEPHINE S Ot 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, UNSPECIFIED ORGANISM 07/07/2018 NIA SUMMERS, JOSEPHINE S Ot J30.9 ALLERGIC RHINITIS, UNSPECIFIED 07/07/2018 NIA SUMMERS, JOSEPHINE S Ot J44.1 CHRONIC OBSTRUCTIVE PULMONARY DISEASE W 07/07/2018 NIA SUMMERS, JOSEPHINE S Ot 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] 07/07/2018 WILBERTO SUMMERS FACC, ALI FACP CCDS Ot E66.9 OBESITY, UNSPECIFIED 07/07/2018 WILBERTO SUMMERS FACC, ALI FACP CCDS Ot I48.0 PAROXYSMAL ATRIAL FIBRILLATION 07/07/2018 WILBERTO SUMMERS FACC, ALI FACP CCDS Ot J44.9 CHRONIC OBSTRUCTIVE PULMONARY DISEASE, U 07/07/2018 WILBERTO SUMMERS FACC, ALI FACP CCDS Ot R00.2 PALPITATIONS 07/07/2018 WILBERTO SUMMERS FACC, ALI FACP CCDS Ot R06.02 SHORTNESS OF BREATH 07/07/2018 WILBERTO KELLEYC, ALI FACP CCDS Ot Z72.0 TOBACCO USE 07/07/2018 BRIT ROSENBERG DO Ot M48.02 SPINAL STENOSIS, CERVICAL REGION 07/07/2018 BRIT ROSENBERG DO Ot M50.13 CERVICAL DISC DISORDER W RADICULOPATHY, 07/07/2018 CHET LEARYBRIT Ot M99.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 07/07/2018 ROSENBERG DOBRIT Ot Z98.1 ARTHRODESIS STATUS 07/07/2018 YOMI BRIGGS DO Ot Z01.818 ENCOUNTER FOR OTHER PREPROCEDURAL EXAMIN 07/07/2018 BRIT ROSENBERG DO Ot G89.4 CHRONIC PAIN SYNDROME 07/07/2018 BRIT ROSENBERG DO Ot R20.0 ANESTHESIA OF SKIN 07/07/2018 BRIT ROSENBERG DO Ot R25.1 TREMOR, UNSPECIFIED 07/07/2018 BRIT ROSENBERG DO Ot R25.3 FASCICULATION 07/07/2018 BRIT ROSENBERG DO Ot R27.0 ATAXIA, UNSPECIFIED 07/07/2018 BRIT ROSENBERG DO Ot R51 HEADACHE 07/07/2018 BIRT ROSENBERG DO Ot Z85.118 PERSONAL HISTORY OF MALIGNANT NEOPLASM O 07/07/2018 YOMI BRIGGS DO Ot D25.9 LEIOMYOMA OF UTERUS, UNSPECIFIED 07/07/2018 YOMI BRIGGS DO Ot N95.0 POSTMENOPAUSAL BLEEDING 07/07/2018 NIA SUMMERS, JOSEPHINE S Ot J45.50 SEVERE PERSISTENT ASTHMA, UNCOMPLICATED 07/07/2018 NIA SUMMERS, JOSEPHINE S Ot J82 PULMONARY EOSINOPHILIA, 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 07/21/2018 MEENAKSHI SUMMERS, KHALIDA U Ot C34.90 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 07/21/2018 MEENAKSHI SUMMERS, ATMCRISTIANA U Ot K76.89 OTHER SPECIFIED DISEASES OF LIVER 07/21/2018 MEENAKSHI SUMMERS, ATMCRISTIANA U Ot N28.1 CYST OF KIDNEY, ACQUIRED 08/07/2018 MEENAKSHI SUMMERS, KHALIDA U Ot C34.90 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 08/07/2018 KHLAIDA ARRIETA MD U Ot K76.89 OTHER SPECIFIED DISEASES OF LIVER 08/07/2018 MEENAKSHI SUMMERS, KHALIDA U Ot N28.1 CYST OF KIDNEY, ACQUIRED 08/09/2018 WILBERTO SUMMERS FAC, ALI FACP CCDS Ot E66.9 OBESITY, UNSPECIFIED 08/09/2018 WILBERTO SUMMERS FAC, [facility] FACP CCDS Ot I48.0 PAROXYSMAL ATRIAL FIBRILLATION 08/09/2018 WILBERTO SUMMERS FACC, ALI FACP CCDS Ot J44.9 CHRONIC OBSTRUCTIVE PULMONARY DISEASE, U 08/09/2018 WILBERTO SUMMERS FACC, ALI FACP CCDS Ot R00.2 PALPITATIONS 08/09/2018 WILBERTO SUMMERS FACC, ALI FACP CCDS Ot R06.02 SHORTNESS OF BREATH 08/09/2018 WILBERTO SUMMERS FACC, ALI FACP CCDS Ot Z72.0 TOBACCO USE 08/12/2018 MEENAKSHI SUMMERS, ATMAN U Ot C34.90 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 08/12/2018 MEENAKSHI SUMMERS, ATMAN U Ot K76.89 OTHER SPECIFIED DISEASES OF LIVER 08/12/2018 MEENAKSHI SUMMERS, ATMAN U Ot N28.1 CYST OF KIDNEY, ACQUIRED 08/14/2018 NIA SUMMERS, JOSEPHINE S Ot G47.30 SLEEP APNEA, UNSPECIFIED Procedures Code Description [place] [address] PSYCH DIAGNOSTIC EVALUATION 10/12/2013 Results Test Result [...] INFLUENZA A AND B ANTIGENS BY IA [facility] IFOBT Occult Blood - 08/20/16 14:08 IFOBT [...] (T4) free measurement (mass/volume) 1.10 ng/dL 0.70-1.48 [id number] - 01/17/17 11:24 Screening antinuclear antibody (CHRISTOPHER) assay by enzyme immunoassay Positive <1:80 Anaplasma phagocytophilum IgG ab [titer] in serum <1: 80 Serum nuclear antibody pattern interpretation Homogeneous [facility] Acute hepatitis panel - 01/17/17 [...] 0.0 10*3/uL 0.0-0.1 Comprehensive metabolic panel - 09/20/17 09:45 Serum or plasma sodium measurement (moles/volume) [...] 06/13/17 11:17 GRAM STAIN SPUTUM NEGATIVE COCCOBACILLI NRG Bacterial sputum culture - 06/13/17 11:17 FREE TEXT EXTERNAL PLUS ABUNDANT NORMAL CONRAD NRG QUANTITY OF GROWTH Scant Growth NR Bacterial sputum culture [id number] NR Bacterial susceptibility panel - 06/13/17 11:17 Gentamicin [...] PLUS NORMAL CONRAD NRG Bacterial sputum culture [id number] NRG Complete blood count (CBC) with automated [...] PLUS NORMAL CONRAD NRG Bacterial sputum culture [id number] [facility] Lipid 1996 panel - 07/25/17 [...] 14:34 PRELIM CULTURE RESULTS Abundant possible Strep [id number] to [facility] for additional testing FINAL CULTURE RESULTS Abundant Strep pneumoniae [id number] to [facility] report for [employer] [...] 5-8.5 Urine-Protein 1+ Negative Urine-RBC 5-10/HPF Urine-Specific [place] 1.020 1.000-1.030 Urine-WBC 2-5/HPF Urobilinogen 0.2 0.2-1.0 Complete blood count (CBC) with automated white blood cell (WBC) differential - 05/26/18 15:18 Blood leukocytes automated count (number/volume) 10.4 10*3/uL 4.3-11.0 Blood erythrocytes automated count (number/volume) 3.60 10*6/uL 4.35-5.85 Venous blood hemoglobin measurement (mass/volume) 12.3 g/dL 11.5-16.0 Blood hematocrit (volume fraction) 36 % 35-52 Automated erythrocyte mean corpuscular volume 101 [foz_us] 80-99 Automated erythrocyte mean corpuscular hemoglobin (mass per erythrocyte) 34 pg 25-34 Automated erythrocyte mean corpuscular hemoglobin concentration measurement ( mass/volume) 34 g/dL 32-36 Automated erythrocyte distribution width ratio 14.5 % 10.0-14.5 Automated blood platelet count (count/volume) 275 10*3/uL 130-400 Automated blood platelet mean volume measurement 9.8 [foz_us] 7.4-10.4 Automated blood neutrophils/100 leukocytes 69 % 42-75 Automated blood lymphocytes/100 leukocytes 23 % 12-44 Blood monocytes/100 leukocytes 8 % 0-12 Automated blood eosinophils/100 leukocytes 1 % 0-10 Automated blood basophils/100 leukocytes 0 % 0-10 Blood neutrophils automated count (number/volume) 7.2 10*3 1.8-7.8 Blood lymphocytes automated count (number/volume) 2.3 10*3 1.0-4.0 Blood monocytes automated count (number/volume) 0.8 10*3 0.0-1.0 Automated eosinophil count 0.1 10*3/uL 0.0-0.3 Automated blood basophil count (count/volume) 0.0 10*3/uL 0.0-0.1 Comprehensive metabolic panel - 05/26/18 15:18 Serum or plasma sodium measurement (moles/volume) 139 mmol/L 135-145 Serum or plasma potassium measurement (moles/volume) 3.5 mmol/L 3.6-5.0 Serum or plasma chloride measurement (moles/volume) 108 mmol/L 98-107 Carbon dioxide 21 mmol/L 21-32 Serum or plasma anion gap determination (moles/volume) 10 mmol/L 5-14 Serum or plasma urea nitrogen measurement (mass/volume) 12 mg/dL 7-18 Serum or plasma creatinine measurement (mass/volume) 0.71 mg/dL 0.60-1.30 Serum or plasma urea nitrogen/creatinine mass ratio 17 NRG Serum or plasma creatinine measurement with calculation of estimated glomerular filtration rate > NRG Serum or plasma glucose measurement (mass/volume) 99 mg/dL 70-105 Serum or plasma calcium measurement (mass/volume) 9.6 mg/dL 8.5-10.1 Serum or plasma total bilirubin measurement (mass/volume) 0.4 mg/dL 0.1-1.0 Serum or plasma alkaline phosphatase measurement (enzymatic activity/volume) 61 U/L 40-136 Serum or plasma aspartate aminotransferase measurement (enzymatic activity/ volume) 14 U/L 5-34 Serum or plasma alanine aminotransferase measurement (enzymatic activity/volume ) 17 U/L 0-55 Serum or plasma protein measurement (mass/volume) 7.5 g/dL 6.4-8.2 Serum or plasma albumin measurement (mass/volume) 4.3 g/dL 3.2-4.5 CALCIUM CORRECTED 9.4 mg/dL 8.5-10.1 CBC with Auto Diff - 06/24/18 15:50 Baso% 0.50 % 0.00-2.50 Eos 0.1 K/uL 0.0-0.7 Eos% 0.7 % 0.0-7.0 Hct 32.9 % 36.0-46.0 Hgb 10.7 g/dL 13.0-15.0 Lym 1.59 K/uL 0.60-3.40 Lym% 17.0 % 10.0-50.0 MCH 33.5 pg 27.0-31.0 MCHC 32.5 g/dL 32.0-36.0 MCV 103.1 fL 80.0-97.0 [place]% 7.3 % 0.0-12.0 MPV 10.2 fL 7.4-10.0 Carina% 74.5 % 37.0-80.0 Plt 244 K/uL 150-400 RBC 3.19 M/uL 3.60-5.00 RDW 13.6 % 11.6-14.8 WBC 9.35 K/uL 5.00-10.00 [place]ina 6.96 K/uL 2.00-6.90 [place] 0.7 K/uL 0.0-0.9 Baso 0.1 K/uL 0.0-0.2 Whole blood basic metabolic panel - 07/07/18 09:11 Serum or plasma sodium measurement (moles/volume) 139 mmol/L 135-145 Serum or plasma potassium measurement (moles/volume) 3.8 mmol/L 3.6-5.0 Serum or plasma chloride measurement (moles/volume) 106 mmol/L 98-107 Carbon dioxide 24 mmol/L 21-32 Serum or plasma anion gap determination (moles/volume) 9 mmol/L 5-14 Serum or plasma urea nitrogen measurement (mass/volume) 11 mg/dL 7-18 Serum or plasma creatinine measurement (mass/volume) 0.73 mg/dL 0.60-1.30 Serum or plasma urea nitrogen/creatinine mass ratio 15 NRG Serum or plasma creatinine measurement with calculation of estimated glomerular filtration rate > NRG Serum or plasma glucose measurement (mass/volume) 100 mg/dL 70-105 Serum or plasma calcium measurement (mass/volume) 9.6 mg/dL 8.5-10.1 Encounters ACCT No. Visit Date/Time Discharge Status Pt. Type Provider Facility Loc./Unit Complaint [id number] 10/12/2013 08:56:00 10/12/2013 23:59:59 CLS Outpatient YURIY ACHARYA [id number] 06/03/2015 09:59:56 ACT Document Registration [id number] 12/13/2017 10:00:00 12/13/2017 23:59:59 CLS Outpatient JOSEY CERRATO [facility] [id number] 08/14/2018 09:30:00 08/14/2018 23:59:59 CLS Preadmit JOSEPHINE KRAMER MD [facility] SLEEP OBSERVED APNEA, SNORING , INSOMNIA [id number] 07/18/2018 13:21:00 07/18/2018 23:59:59 CLS Outpatient JOSEPHINE KRAMER MD [facility] SDC SALINE OR HEPARINE FLUSH TO ACCESS PORT [id number] 07/07/2018 09:01:00 07/07/2018 23:59:59 CLS Outpatient KHALIDA ARRIETA MD [facility] RAD LUNG CANCER [id number] 06/26/2018 13:00:00 06/26/2018 23:59:59 CLS Preadmit JOSEPHINE KRAMER MD [facility] EOSINOPHILIC ASTHMA [id number] 06/20/2018 13:25:00 06/25/2018 00:01:00 DIS Outpatient JOSEPHINE KRAMER MD [facility] EOSINOPHILIC ASTHMA [id number] 05/26/2018 14:24:00 05/26/2018 16:35:00 DIS Emergency VIVIAN BARRERA APRN [facility] ER SOB;LUNG PAIN;R ARM PAIN [id number] 05/13/2018 10:06:00 05/13/2018 23:59:59 CLS Outpatient YOMI BRIGGS DO [facility] RAD POST MENOPAUSAL BLEEDING [id number] 04/14/2018 09:31:00 04/14/2018 23:59:59 CLS Outpatient BRIT ROSENBERG DO [facility] RAD ATAXIA,MUSCLE TWITCH, FACIAL NUMBNESS [id number] 03/12/2018 13:37:00 03/12/2018 17:53:00 DIS Emergency JUSTO MAYA [facility] ER SOA [id number] 02/27/2018 16:09:00 02/27/2018 23:59:59 CLS Preadmit OTHER, UNLISTED [facility] SLEEP EXCESSIVE DAYTIME SLEEPINESS [id number] 02/18/2018 06:37:00 02/18/2018 10:20:00 DIS Outpatient LISANDRA CORONA MD [facility] ISD/STRESS URINARY INCONT. [id number] 02/17/2018 09:15:00 02/17/2018 09:45:00 DIS Outpatient LISANDRA CORONA MD [facility] PREOP MACROPLASTIQUE WITH CYSTOSCOPY [id number] 01/07/2018 08:00:00 01/07/2018 23:59:59 CLS Preadmit YOMI BRIGGS DO [facility] ABNORMAL PET SCAN,POST MENOPAUSAL BLEEDING [id number] 01/02/2018 05:57:00 01/02/2018 23:59:59 CLS Outpatient YOMI BRIGGS DO [facility] PREOP ABNORMAL PET SCAN, POST MENOPAUSAL BLEEDING [id number] 12/11/2017 11:46:00 12/11/2017 23:59:59 CLS Outpatient BRIT ROSENBERG DO [facility] RAD CERVICAL RADICULOPATHY [id number] 11/14/2017 14:14:00 11/14/2017 16:22:00 DIS Emergency VIVIAN BARRERA Dl WHITEPRINTING MACHINE OPERATOR [facility] ER SOB,TACH [id number] 11/05/2017 08:05:00 11/05/2017 23:59:59 CLS Outpatient WILBERTO SUMMERS FACC, GIBRAN HANLEY CCDS [facility] CARD R06.02 SOB [id number] 09/13/2017 11:52:00 09/13/2017 13:11:00 DIS Emergency BAM LOPEZ [facility] ER RT EYE ISSUES [id number] 09/12/2017 00:35:00 09/12/2017 23:59:59 CLS Preadmit JOSEPHINE KRAEMR MD [facility] BRONCHOPNEUUMONIA [id number] 06/27/2017 15:55:00 09/11/2017 00:01:00 DIS Outpatient JOSEPHINE KRAMER MD [facility] BRONCHOPNEUUMONIA [id number] 09/03/2017 13:13:00 09/03/2017 23:59:59 CLS Outpatient KHALIDA ARRIETA MD [facility] RAD LUNG CA [id number] 08/15/2017 13:00:00 08/15/2017 23:59:59 CLS Preadmit JOSEPHINE KRAMER MD [facility] EOSINOPHILIC ASTHMA [id number] 08/09/2017 12:33:00 08/09/2017 23:59:59 CLS Outpatient KHALIDA ARRIETA MD [facility] RAD LUNG CANCER C34.90 [id number] 07/31/2017 11:15:00 07/31/2017 23:59:59 CLS Preadmit KHALIDA ARRIETA MD [facility] RAD LUNG CANCER [id number] 07/24/2017 14:42:00 07/26/2017 11:55:00 DIS Inpatient JOSE DANIEL BARCENAS DO [facility] 4TH PNA LLL,SEPSIS,COPD EXACERBATION [id number] 07/16/2017 10:41:00 07/16/2017 23:59:59 CLS Outpatient WILBERTO SUMMERS FACC, ALI WARRENP CCDS [facility] CARD RO6.09 GUAN I48.0 PAF [id number] 07/09/2017 12:53:00 07/09/2017 14:36:00 DIS Emergency VIVIAN BARRERA APRN [facility] ER SOB,TACHYCARDIA [id number] 07/05/2017 12:19:00 07/05/2017 13:55:00 DIS Emergency SIDRA STOLL MD [facility] ER SOA [id number] 06/20/2017 08:00:00 06/20/2017 23:59:59 CLS Preadmit WILBERTO SUMMERS FAC, ALI FACP CCDS [facility] CARD R06.09 GUAN I48.0 PAF [id number] 05/15/2017 09:38:00 05/15/2017 23:59:59 CLS Outpatient EDU GUPTA MD [facility] RAD LUNG CA [id number] 01/30/2017 08:57:00 01/30/2017 23:59:59 CLS Outpatient JOSEPHINE KRAMER MD [facility] RAD LUNG CA C34.90 [id number] 01/17/2017 11:12:00 01/17/2017 23:59:59 CLS Outpatient BRIT ROSENBERG DO [facility] LAB R53.83,K59.00,Z11.59 [id number] 12/21/2016 11:07:00 12/21/2016 14:25:00 DIS Emergency VIVIAN BARRERA APRN [facility] ER CHEST PRESSURE/PAIN [id number] 12/13/2016 07:14:00 12/13/2016 23:59:59 CLS Preadmit JOSEPHINE KRAMER MD [facility] RT J44.1 [id number] 12/13/2016 07:12:00 12/13/2016 23:59:59 CLS Preadmit NIA SUMMERS, JOSEPHINE S [facility] RAD C34.90 [id number] 12/03/2016 06:29:00 12/03/2016 10:40:00 DIS Outpatient LAKESHIA ARRIAGA MD [facility] SDC POST MENOPAUSAL THICKENED ENDOMATRIUM, HX LUNG CA, [id number] 11/29/2016 14:32:00 11/29/2016 14:55:00 DIS Outpatient LAKESHIA ARRIAGA MD [facility] PREOP HYSTEROSCOPY, D C [id number] 10/23/2016 12:06:00 10/23/2016 23:59:59 CLS Outpatient JOSEPHINE KRAMER MD [facility] RAD LUNG CA, LUNG NODULE [id number] 09/12/2016 12:23:00 09/12/2016 23:59:59 CLS Outpatient MEENAKSHI SUMMERS, KHALIDA Phillips [facility] RAD LUNG CA [id number] 08/14/2016 12:41:00 08/14/2016 15:23:00 DIS Emergency JERMAN SUMMERS, SIDRA Morrow [facility] ER COUGH/CHEST CONGESTION [id number] 06/04/2016 11:40:00 06/04/2016 23:59:59 CLS Outpatient BRIT ROSENBERG DO [facility] LAB CHRONIC PAIN SYNDROME , CERIVCAL SPONDYLOSIS W/O MY [id number] 05/15/2016 10:31:00 05/15/2016 23:59:59 CLS Outpatient KHALIDA ARRIETA MD U [facility] RAD LUNG CANCER [id number] 05/01/2016 11:27:00 05/01/2016 23:59:59 CLS Outpatient KEM PITTMAN MD [facility] CARD LUNG CA,OTHER SPECIFIED DISORDERS OF BONE [id number] 04/25/2016 13:14:00 04/25/2016 23:59:59 CLS Outpatient WILBERTO SUMMERS FACC, GIBRAN HANLEY CCDS [facility] CARD PAF,LUNG CANCER,COPD,PALPITATIONS [id number] 03/28/2016 14:47:00 03/28/2016 17:32:00 DIS Emergency 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 [facility] ER UPPER ABD/CHEST PAIN [id number] 03/22/2016 14:29:00 03/22/2016 23:59:59 CLS Outpatient WILBERTO SUMMERS FACC, GIBRAN HANLEY CCDS [facility] LAB PAF, [place], COPD [id number] 11/14/2015 08:34:00 11/14/2015 11:30:00 DIS Outpatient PARAM MA MD [facility] SDC DIARRHEA, UPPER GASTRIC PAIN, GERD [id number] 11/10/2015 05:42:00 11/10/2015 16:02:00 DIS Outpatient PARAM MA MD [facility] PREOP DIARRHEA, UPPER GASTRIC PAIN, GERD [id number] 10/13/2015 12:08:00 10/13/2015 15:18:00 DIS Emergency NA NASH MD [facility] ER DIARRHEA [id number] 09/29/2015 12:42:00 09/29/2015 23:59:59 CLS Outpatient NEHA ROSENBERG APRN [facility] RAD COPD [id number] 09/28/2015 13:22:00 09/28/2015 23:59:59 CLS Outpatient 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 [facility] LAB CHEST PAIN, COPD, PAF , GUAN [id number] 07/13/2015 18:37:00 07/13/2015 20:11:00 DIS Emergency 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 [facility] ER CHILLS,BODY ACHES, CHEST/ HEAD COLD [id number] 07/11/2015 13:55:00 07/11/2015 23:59:59 CLS Outpatient ALESSANDRO MARTINEZ DO [facility] RAD DDD, STENOSIS [id number] 06/03/2015 09:58:00 06/03/2015 23:59:59 CLS Outpatient ABE HELLER DO [facility] LAB HYPERLIPIDEMIA [id number] 05/23/2015 17:15:00 05/23/2015 23:59:59 CLS Outpatient ABE HELLER DO [facility] LAB HYPERLIPIDEMIA [id number] 04/06/2015 08:47:00 04/06/2015 23:59:59 CLS Outpatient ANDIE RICHARDS DO [facility] RT COPD CANCER OF LUNG TOBACCO USER [id number] 04/03/2015 21:14:00 04/04/2015 06:30:00 DIS Outpatient ANDIE RICHARDS DO [facility] SLEEP SNORING ARRHYTHMIAS ISCHEMIC HEART DISEASE MORNING [id number] 11/04/2014 15:36:00 11/25/2014 09:47:00 DIS Outpatient MUKESH NEWELL MD [facility] REHAB NECK PAIN;C6-C7 FUSION;THORACIC PAIN [id number] 11/01/2016 10:15:00 Document Registration [id number] 10/04/2014 13:45:00 Document Registration [id number] 10/04/2014 13:45:00 Document Registration [id number] 10/04/2014 13:45:00 Document Registration [id number] 07/13/2010 00:00:00 Document Registration [id number] 06/02/2010 12:20:00 Document Registration [id number] 05/11/2010 08:26:00 Document Registration [id number] 05/05/2010 09:05:00 Document Registration [id number] 04/13/2010 15:06:00 Document Registration [id number] 02/23/2010 14:14:00 Document Registration [id number] 02/06/2010 10:29:00 Document Registration [id number] 01/16/2010 13:11:00 Document Registration [id number] 01/10/2010 09:26:00 Document Registration [id number] 12/28/2009 11:32:00 Document Registration [id number] 12/21/2009 08:57:00 Document Registration [id number] 12/19/2009 12:54:00 Document Registration [id number] 12/15/2009 11:38:00 Document Registration [id number] 11/17/2009 12:55:00 Document Registration [id number] 06/24/2018 15:06:00 06/24/2018 16:55:00 DIS Outpatient Connie Swift [facility] ER [id number] 05/06/2018 16:00:00 05/06/2018 23:59:00 DIS Outpatient Brit Rosenberg [id number] 04/20/2018 16:24:00 04/20/2018 19:25:00 DIS Outpatient KERI PRINGLE [facility] ER [id number] 02/27/2018 12:11:00 02/27/2018 13:15:00 DIS Outpatient Amie Herndon [id number] 02/20/2018 16:08:00 02/20/2018 23:59:00 DIS Outpatient Brit Rosenberg [id number] 11/26/2017 09:46:00 12/06/2017 11:30:00 DIS Outpatient Brit Rosenberg [id number] 10/18/2017 15:35:00 10/30/2017 16:25:00 DIS Outpatient JOSEPHINE KRAMER [id number] 09/20/2017 11:35:00 09/22/2017 09:30:00 DIS Inpatient Jazmyn Jacobson [facility] MED-SURG [id number] 09/16/2017 17:08:00 09/16/2017 19:03:00 [id number] 06/26/2017 20:24:00 06/26/2017 22:15:00 DIS Outpatient Bubba Santillan [id number] 06/24/2017 18:09:00 06/24/2017 19:57:00 DIS Outpatient Bubba Santillan [id number] 06/23/2017 14:42:00 06/23/2017 16:55:00 DIS Outpatient Bubba Santillan [id number] 06/22/2017 14:19:00 06/22/2017 15:48:00 DIS Outpatient Bubba Santillan [id number] 06/21/2017 16:24:00 06/21/2017 18:12:00 DIS Outpatient Bubba Santillan [id number] 05/13/2017 10:53:00 05/13/2017 23:59:00 DIS Outpatient Julio C Sloan [id number] 05/13/2017 11:25:00 05/13/2017 13:06:00 [facility] [id number] 07/23/2016 11:52:00 08/29/2016 15:26:00 DIS Outpatient Bubba Santillan [id number] 08/20/2016 12:34:00 08/20/2016 16:00:[address] [facility] [id number] 07/17/2016 13:38:00 07/17/2016 23:59:00 DIS Outpatient JOSEPHINE KRAMER [id number] 07/05/2016 15:17:00 07/05/2016 15:17:00 CAN Outpatient JOSEPHINE KRAMER [id number] 06/25/2017 15:27:32 Document Registration [id number] 08/20/2016 14:14:13 Document Registration [id number] 09/26/2017 14:18:00 Document Registration
--- NOTE | 2018-08-19 12:58 | ED Cough/URI ---
General Chief Complaint: Respiratory Problems Stated Complaint: SOB;CHEST PAIN Source: patient Exam Limitations: no limitations History of Present Illness Date Seen by Provider: Aug 19, 2018 Time Seen by Provider: 12:56 Initial Comments To ER with a cough and shortness of breath of several days duration. She was started by her primary care provider on Omnicef and a steroid taper. She is down to prednisone 20 mg daily currently, yesterday was her last day of 30 mg of daily prednisone. She states that she begins coughing and coughs so severely that she is unable to catch her breath. She denies fevers or chills. Timing/Duration: just prior to arrival Severity/Quality: productive cough Associated Symptoms: cough, shortness of breath Allergies and Home Medications Allergies Coded Allergies: No Known Drug Allergies (Verified , 07/24/17) Home Medications Acetylcysteine 600 Mg Capsule, 600 MG PO DAILY PRN for CONGESTION, (Reported) Albuterol Sulfate 18 Gm Hfa.aer.ad, 2 PUFF INH Q4H PRN for SHORTNESS OF BREATH, (Reported) Calcium Carbonate/Vitamin D3 1 Each Tablet, 1 EACH PO DAILY, (Reported) Cholecalciferol (Vitamin D3) 1,000 Unit Capsule, 1,000 UNIT PO DAILY, (Reported) Cyanocobalamin (Vitamin B-12) 250 Mcg Tablet, 250 MCG PO DAILY, (Reported) Dexlansoprazole 60 Mg Cap.dr.bp, 60 MG PO DAILY, (Reported) Diazepam 5 Mg Tablet, 5 MG PO BID PRN for ANXIETY, (Reported) Diltiazem HCl 240 Mg Cap.er.24h, 240 MG PO DAILY, (Reported) Estradiol 0.5 Mg Tablet, 0.5 MG PO DAILY, (Reported) Fexofenadine HCl 180 Mg Tablet, 180 MG PO DAILY, (Reported) Fluoxetine HCl 10 Mg Capsule, 10 MG PO DAILY, (Reported) Fluticasone Propionate 16 Gm [place].susp, 2 SPRAY NS DAILY, (Reported) Hydrocodone/Acetaminophen 1 Each Tablet, 1 EACH PO Q6H PRN for PAIN-MILD TO MODERATE, (Reported) Ipratropium/Albuterol Sulfate 3 Ml Ampul.neb, 3 ML IH Q4H PRN for SHORTNESS OF BREATH, (Reported) Medroxyprogesterone Acetate 5 Mg Tablet, 5 MG PO DAILY, (Reported) Mometasone/Formoterol 13 Gm Hfa.aer.ad, 2 PUFF INH BID, (Reported) Montelukast Sodium 10 Mg Tablet, 10 MG PO HS, (Reported) Nitrofurantoin Monohyd/M-Cryst 100 Mg Capsule, 1 TAB PO BID WITH MEALS Prescribed by: LEISA LOYA on 02/18/18858 Ondansetron 4 Mg Tab.rapdis, 4 MG PO Q4H PRN for NAUSEA/VOMITING, (Reported) Phenazopyridine HCl 200 Mg Tablet, 1 TAB PO TID Prescribed by: LEISA LOYA on 02/18/18858 Pravastatin Sodium 40 Mg Tablet, 40 MG PO HS, (Reported) Prednisone 20 Mg Tab, 40 MG PO DAILY Prescribed by: VIVIAN BARRERA on 05/26/18 163 Roflumilast 500 Mcg Tablet, 500 MCG PO DAILY, (Reported) Sucralfate 1 Gm/10 Ml Oral.susp, 10 ML PO QID PRN for STOMACH UPSET, (Reported) Umeclidinium [place] 62.5 Mcg Blst.w.dev, 62.5 MCG IH DAILY, (Reported) Varenicline Tartrate 1 Mg Tablet, 1 MG PO BID, (Reported) Patient Home Medication List Home Medication List Reviewed: Yes Review of Systems Review of Systems Constitutional: see HPI; No chills, No fever Respiratory: see HPI, cough, short of breath, wheezing Cardiovascular: see HPI, chest pain (only when coughing) Genitourinary: no symptoms reported Musculoskeletal: no symptoms reported Skin: no symptoms reported Psychiatric/Neurological: No Symptoms Reported Past Tangpmy-Esbpkt-Pwdvbe Hx Patient Social History Alcohol Beverage of Choice: Beer, [place] Type Used: Cigarettes 2nd Hand Smoke Exposure: Yes Recent Hopitalizations: No Immunizations Up To Date Tetanus Booster (TDap): Unknown Date of Pneumonia Vaccine: Oct 24, 2013 Date of Influenza Vaccine: May 26, 2017 Seasonal Allergies Seasonal Allergies: Yes Past Medical History Surgeries: Yes (BUNIONECTOMY, NECK FUSION, BREAST IMPLANTS) Lobectomy, Tubal Ligation Respiratory: Yes ( HX OF LUNG CA, doing sleep study soon, wears oxygen at hs) Asthma, COPD Currently Using CPAP: No Currently Using BIPAP: No Cardiac: No Atrial Fibrillation, High Cholesterol Neurological: No 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 Genitourinary: No Gastrointestinal: Yes Gastroesophageal Reflux, Irritable Bowel Musculoskeletal: Yes (joint pain) Arthritis, Chronic Back Pain Endocrine: No HEENT: No Cancer: Yes Lung What Type of Treatment Did You: Chemotherapy, Radiation, Surgical Intervention Psychosocial: Yes Anxiety, Depression Integumentary: No Blood Disorders: No Adverse Reaction/Blood Tranf: No Family Medical History FH: lung cancer 19 FATHER 19 MOTHER No Pertinent Family Hx Physical Exam Vital Signs - First Documented 08/19/18 12:44 Temp 98.8 Pulse 127 Resp 18 B/P (MAP) 131/81 (98) Pulse Ox 96 O2 Delivery Room Air Capillary Refill : Height: 5'5.00" Weight: 187lbs. 0.0oz. 84.450851we; 31.6 BMI Method:Stated General Appearance: WD/WN, no apparent distress, other (speaks in full sentences, oxygen saturation 97%. Does have a bronchospastic cough.) Eyes: Bilateral Eye Normal Inspection, Bilateral Eye PERRL, Bilateral Eye EOMI HEENT: PERRL/EOMI, normal ENT inspection Neck: non-tender, full range of motion Respiratory: no respiratory distress, no accessory muscle use, wheezing (faint wheeze left upper) Cardiovascular: no murmur, tachycardia Gastrointestinal: normal bowel sounds, non tender, soft Neurologic/Psychiatric: alert, normal mood/affect, oriented x 3 Skin: normal color, warm/dry Progress/Results/Core Measures Suspected Sepsis SIRS Temperature: Pulse: Respiratory Rate: Laboratory Tests 08/19/18 12:49: White Blood Count 10.6 Blood Pressure / Mean: Laboratory Tests 08/19/18 12:49: Creatinine 0.81, Platelet Count 275, Total Bilirubin 0.3 Results/Orders Lab Results Laboratory Tests Test 08/19/18 12:49 Range/Units White Blood Count 10.6 4.3-11.0 10^3/uL Red Blood Count 3.73 L 4.35-5.85 10^6/uL Hemoglobin 12.5 11.5-16.0 G/DL Hematocrit 37 35-52 % Mean Corpuscular Volume 100 H 80-99 FL Mean Corpuscular Hemoglobin 34 25-34 PG Mean Corpuscular Hemoglobin Concent 34 32-36 G/DL Red Cell Distribution Width 15.0 H 10.0-14.5 % Platelet Count 275 130-400 10^3/uL Mean Platelet Volume 9.8 7.4-10.4 FL Neutrophils (%) (Auto) 55 42-75 % Lymphocytes (%) (Auto) 34 12-44 % Monocytes (%) (Auto) 10 0-12 % Eosinophils (%) (Auto) 1 0-10 % Basophils (%) (Auto) 1 0-10 % Neutrophils # (Auto) 5.9 1.8-7.8 X 10^3 Lymphocytes # (Auto) 3.6 1.0-4.0 X 10^3 Monocytes # (Auto) 1.1 H 0.0-1.0 X 10^3 Eosinophils # (Auto) 0.1 0.0-0.3 10^3/uL Basophils # (Auto) 0.1 0.0-0.1 10^3/uL Sodium Level 144 135-145 MMOL/L Potassium Level 3.1 L 3.6-5.0 MMOL/L Chloride Level 108 H 98-107 MMOL/L Carbon Dioxide Level 22 21-32 MMOL/L Anion Gap 14 5-14 MMOL/L Blood Urea Nitrogen 16 7-18 MG/DL Creatinine 0.81 0.60-1.30 MG/DL Estimat Glomerular Filtration Rate > 60 BUN/Creatinine Ratio 20 Glucose Level 97 70-105 MG/DL Calcium Level 9.8 8.5-10.1 MG/DL Corrected Calcium 9.6 8.5-10.1 MG/DL Total Bilirubin 0.3 0.1-1.0 MG/DL Aspartate Amino Transf (AST/SGOT) 14 5-34 U/L Alanine Aminotransferase (ALT/SGPT) 19 0-55 U/L Alkaline Phosphatase 73 40-136 U/L Troponin I < 0.30 <0.30 NG/ML Total Protein 7.1 6.4-8.2 GM/DL Albumin 4.3 3.2-4.5 GM/DL My Orders Orders - VIVIAN BARRERA SOLAR SALES ASSOCIATE Cbc With Automated Diff (08/19/18 12:44) Troponin I (08/19/18 12:44) Ekg Tracing (08/19/18 12:44) Chest Pa/Lat (2 View) (08/19/18 12:44) Iv Heplock-Insert (Order) (08/19/18 12:44) Comprehensive Metabolic Panel (08/19/18 12:44) Methylprednisolone Sod Succ (Solu-Medrol (08/19/18 12:45) Albuterol/Ipra Inhalation Soln (Duoneb I (08/19/18 12:45) Svn Small Volume Nebulizer (08/19/18 12:44) Ekg Tracing (08/19/18 12:55) Hydrocodone/Apap 5/325 Tablet (Lortab 5 (08/19/18 13:00) Potassium Chloride Powder (Klor Con 20 M (08/19/18 13:30) Medications Given in ED Current Medications Medications Dose Ordered Sig/Caitlin Route Start Time Stop Time Status Last Admin Dose Admin Acetaminophen/ Hydrocodone Bitart 1 tab ONCE ONCE PO 08/19/18 13:00 08/19/18 13:01 DC 08/19/18 13:19 1 TAB Albuterol/ Ipratropium 3 ml ONCE ONCE INH 08/19/18 12:45 08/19/18 12:46 DC 08/19/18 13:00 3 ML Methylprednisolone Sodium Succinate 125 mg ONCE ONCE IVP 08/19/18 12:45 08/19/18 12:46 DC 08/19/18 13:18 125 MG Vital Signs/I&O 08/19/18 08/19/18 12:44 13:01 Temp 98.8 Pulse 127 Resp 18 B/P (MAP) 131/81 (98) Pulse Ox 96 96 O2 Delivery Room Air Room Air Capillary Refill : Diagnostic Imaging Diagonstic Imaging: Xray Plain Films/CT/US/NM/MRI: chest Comments NAME: ROC NAYAK [facility] REC#: [id number] PT STATUS: REG ER : 1960 PHYSICIAN: VIVIAN BARRERA [employer]AR SALES ASSOCIATE ADMIT DATE: 08/19/18/ER Draft Date of Exam:08/19/18 CHEST PA/LAT (2 VIEW) EXAMINATION: PA and lateral chest at 133. INDICATION: Cough The heart size is within normal limits and stable when compared to 05/26/18. The surgical clips in the right suprahilar region seen previously are again evident and no different. There are chronic pulmonary changes visualized but there is no sign of failure, pneumonia or pleural effusion. The lateral view does show a small area of increased density in the retrosternal region. This finding is unchanged when compared to the prior exam of 03/12/2018. Mediastinum is not widened. The osseous structures are intact. There orthopedic hardware overlying the lower cervical spine seen previously is again evident and no different. IMPRESSION: 1 There is no evidence for an acute cardiopulmonary abnormality. When compared to the prior study there has been no significant change. 2. If clinical concern regarding an underlying abnormality persists and further imaging is desired, CT of the chest would recommended. Dictated on workstation # [id number] Dict: 08/19/18 1326 Trans: 08/19/18 1343 [facility] [id number] Interpreted by: YANELIS RUDOLPH MD Electronically signed by: Departure Impression Primary Impression: COPD exacerbation Disposition: HOME, SELF-CARE Condition: Stable Departure-Patient Inst. Decision time for Depature: 12:58 Referrals: SHELLEY ROSENBERG DO (PCP/Family) Primary Care Physician Patient Instructions: Exacerbation of COPD Add. Discharge Instructions: 1. Cough medication as directed 2. Return to ER for any concerns 3. Follow-up with your doctor next week Continue antibiotics and steroids at current dosages. All discharge instructions reviewed with patient and/or family. Voiced understanding. Scripts Promethazine HCl/Codeine (Prometh-Codein 6.25-10 mg/5 ml) 5 Ml Syrup 5 ML PO Q6H PRN for COUGH, #60 ML Prov: VIVIAN BARRERA APRN 08/19/18 VIVIAN BARRERA APRN Aug 19, 2018 12:58
[2018-08-19] MEDS ORDERED: HYDROcodone/APAP 5 MG/325 MG (LORTAB) TAB PO ONE (13:00)
[2018-08-19] MEDS ORDERED: CEFD300C3 (13:01)
[2018-08-19 13:05] LABS: BASOPHILS # (AUTO) 0.1 10^3/uL (0.0-0.1); BASOPHILS % (AUTO) 1 % (0-10); EOSINOPHILS # (AUTO) 0.1 10^3/uL (0.0-0.3); EOSINOPHILS % (AUTO) 1 % (0-10); HEMATOCRIT 37 % (35-52); HEMOGLOBIN 12.5 G/DL (11.5-16.0); LYMPHOCYTES # (AUTO) 3.6 X 10^3 (1.0-4.0); LYMPHOCYTES % (AUTO) 34 % (12-44); MEAN CORPUSCULAR HEMOGLOBIN 34 PG (25-34); MEAN CORPUSCULAR HGB CONC 34 G/DL (32-36); MEAN CORPUSCULAR VOLUME 100 FL (80-99); MEAN PLATELET VOLUME 9.8 FL (7.4-10.4); MONOCYTES # (AUTO) 1.1 X 10^3 (0.0-1.0); MONOCYTES % (AUTO) 10 % (0-12); NEUTROPHILS # (AUTO) 5.9 X 10^3 (1.8-7.8); NEUTROPHILS % (AUTO) 55 % (42-75); PLATELET COUNT 275 10^3/uL (130-400); RED BLOOD COUNT 3.73 10^6/uL (4.35-5.85); WHITE BLOOD COUNT 10.6 10^3/uL (4.3-11.0)
[2018-08-19 13:22] LABS: ALANINE AMINOTRANSFERASE 19 U/L (0-55); ALBUMIN 4.3 GM/DL (3.2-4.5); ALKALINE PHOSPHATASE 73 U/L (40-136); BILIRUBIN,TOTAL 0.3 MG/DL (0.1-1.0); BUN/CREATININE RATIO 20; CALCIUM 9.8 MG/DL (8.5-10.1); CARBON DIOXIDE 22 MMOL/L (21-32); CHLORIDE 108 MMOL/L (98-107); CREATININE SERUM 0.81 MG/DL (0.60-1.30); GFR ESTIMATED > 60; GLUCOSE 97 MG/DL (70-105); POTASSIUM 3.1 MMOL/L (3.6-5.0); SODIUM 144 MMOL/L (135-145); TOTAL PROTEIN 7.1 GM/DL (6.4-8.2)
--- NOTE | 2018-08-19 13:48 | Diagnostic Imaging Report ---
EXAMINATION: PA and lateral chest at 133. INDICATION: Cough The heart size is within normal limits and stable when compared to 05/26/18. The surgical clips in the right suprahilar region seen previously are again evident and no different. There are chronic pulmonary changes visualized but there is no sign of failure, pneumonia or pleural effusion. The lateral view does show a small area of increased density in the retrosternal region. This finding is unchanged when compared to the prior exam of 03/12/2018. Mediastinum is not widened. The osseous structures are intact. There orthopedic hardware overlying the lower cervical spine seen previously is again evident and no different. IMPRESSION: 1 There is no evidence for an acute cardiopulmonary abnormality. When compared to the prior study there has been no significant change. 2. If clinical concern regarding an underlying abnormality persists and further imaging is desired, CT of the chest would recommended. Dictated by: Dictated on workstation # [id number]
[2018-08-19] MEDS ORDERED: PROM5SYR PO (13:50)
[2018-08-19] MEDS ORDERED: RX-ACETAMINOPHEN/CODEINE TAB PPK #4 PO SCH ×2 (14:00→15:00)
[2018-08-19 14:06] VITALS: BP 148/66
[2018-08-19] MEDS: KCL 20 MEQ POWDER FOR ORAL SOLUTION PO ONE (14:06)
[2018-08-19] MEDS ORDERED: RX-ACETAMINOPHEN/CODEINE TAB PPK #4 ONE (14:14)
== END 2018-08-19 14:11 | disposition home or self-care (01) ==
LOC: EDUNIT# 12:42 → ER 12:43
DX: J44.1 Chronic obstructive pulmonary disease with (acute) exacerbation (principal); I48.91 Unspecified atrial fibrillation; I10 Essential (primary) hypertension; K21.9 Gastro-esophageal reflux disease without esophagitis; F41.9 Anxiety disorder, unspecified; F32.9 Major depressive disorder, single episode, unspecified; Z92.21 Personal history of antineoplastic chemotherapy; Z87.19 Personal history of other diseases of the digestive system; Z85.118 Personal history of other malignant neoplasm of bronchus and lung; Z80.1 Family history of malignant neoplasm of trachea, bronchus and lung; Z99.81 Dependence on supplemental oxygen; Z79.51 Long term (current) use of inhaled steroids; Z79.52 Long term (current) use of systemic steroids; Z77.22 Contact with and (suspected) exposure to environmental tobacco smoke (acute) (chronic); Z90.89 Acquired absence of other organs; Z98.890 Other specified postprocedural states; Z98.1 Arthrodesis status; Z98.51 Tubal ligation status; Z90.2 Acquired absence of lung [part of]
CPT/HCPCS: 36415; 71046; 80053; 84484; 85025; 93005; 94640; 96374

== ENCOUNTER 2018-08-27 11:29 | Outpatient (CLI) | payer MEDICARE, MEDICAID ==
[~2018-08-27 11:29] MED LIST changes: +CEFD300C3; +PROM5SYR PO
== END 2018-08-27 12:01 | disposition home or self-care (01) ==
LOC: SLEEP 11:29
PROVIDERS: ATTEND Internal Medicine Critical Care Medicine
DX: G47.30 Sleep apnea, unspecified (principal); R06.83 Snoring; R09.02 Hypoxemia

== ENCOUNTER 2018-09-26 15:47 | Outpatient (RCR) | payer MEDICARE, MEDICAID ==
[2018-07-18] MEDS: MEPOLIZUMAB 100 MG (NUCALA) VIAL SQ SCH (14:00)
[2018-07-18 14:05] VITALS: BP 103/79
[2018-08-28] MEDS: MEPOLIZUMAB 100 MG (NUCALA) VIAL SQ SCH (11:59)
[2018-08-28 13:15] VITALS: BP 116/80
[~2018-09-26] VITALS: Ht 165.1 cm; Wt 84.8 kg
[~2018-09-26 15:47] MED LIST changes: +NS IV 1000 ML 1,000 ML IV SCH; +WATER (STERILE) FOR INJECTION 20 ML ONE
[2018-09-26 15:50] VITALS: BP 111/68
[2018-09-26] MEDS: MEPOLIZUMAB 100 MG (NUCALA) VIAL SQ SCH (16:00)
== END 2018-10-16 | disposition home or self-care (01) ==
LOC: SDC 15:47
PROVIDERS: ATTEND Internal Medicine Critical Care Medicine
DX: Z45.2 Encounter for adjustment and management of vascular access device (principal)
CPT/HCPCS: 96365; 96372

== ENCOUNTER 2018-10-24 12:31 | Emergency (ER) | payer MEDICARE, MEDICAID ==
[~2018-10-24] VITALS: Ht 165.1 cm; Wt 79.8 kg
[~2018-10-24 12:31] MED LIST changes: -NS IV 1000 ML 1,000 ML IV SCH; +ROFL500T PO; -ROFL500T4 PO; -WATER (STERILE) FOR INJECTION 20 ML ONE
[2018-10-24] MEDS ORDERED: ASPIRIN 81 MG CHEW (CHILDREN'S ASA) PO ONE (12:45)
--- NOTE | 2018-10-24 13:14 | Diagnostic Imaging Report ---
EXAM: Single view chest. INDICATION: Shortness of breath for 2-3 days. COMPARISON: FINDINGS: The heart is normal in size. There are postsurgical changes in the right upper lobe and right hilum. There are COPD changes with bullous changes most prominent in the right apex. There is no new infiltrate or pneumothorax or pleural fluid. IMPRESSION: COPD changes with postsurgical changes in the right upper lung field. No acute infiltrate or pleural fluid. Dictated by: Dictated on workstation # [id number]
[2018-10-24] MEDS ORDERED: methylPREDNISolone 125 MG (Solu-MEDROL) VIAL IVP ONE (13:15)
[2018-10-24 13:16] LABS: BASOPHILS % (AUTO) 0 % (0-10); EOSINOPHILS # (AUTO) 0.1 10^3/uL (0.0-0.3); EOSINOPHILS % (AUTO) 1 % (0-10); HEMATOCRIT 40 % (35-52); HEMOGLOBIN 13.4 G/DL (11.5-16.0); LYMPHOCYTES # (AUTO) 2.2 X 10^3 (1.0-4.0); LYMPHOCYTES % (AUTO) 15 % (12-44); MEAN CORPUSCULAR HEMOGLOBIN 33 PG (25-34); MEAN CORPUSCULAR HGB CONC 34 G/DL (32-36); MEAN CORPUSCULAR VOLUME 97 FL (80-99); MEAN PLATELET VOLUME 10.2 FL (7.4-10.4); MONOCYTES # (AUTO) 0.7 X 10^3 (0.0-1.0); MONOCYTES % (AUTO) 5 % (0-12); NEUTROPHILS # (AUTO) 11.8 X 10^3 (1.8-7.8); NEUTROPHILS % (AUTO) 79 % (42-75); PLATELET COUNT 294 10^3/uL (130-400); RED CELL DISTRIBUTION WIDTH 14.7 % (10.0-14.5); WHITE BLOOD COUNT 14.9 10^3/uL (4.3-11.0)
--- NOTE | 2018-10-24 13:17 | ED Respiratory ---
General Chief Complaint: Respiratory Problems Stated Complaint: CHEST PRESSURE, SOB Source: patient, EMS History of Present Illness Date Seen by Provider: Oct 24, 2018 Time Seen by Provider: 13:14 Initial Comments This is 58-year-old white female presents with cough and chest discomfort for the last 2 weeks. Multiple family members have had the same symptoms at home. Several of them are documented flu positive. The patient denies associated headache, stiff neck, photophobia, nausea, vomiting, diarrhea, dysuria, or rash. Patient has a history of COPD. Patient has been using azithromycin and prednisone home as recommended by her act english tutor. The patient believes that she needs an IV dose of steroids. Allergies and Home Medications Allergies Coded Allergies: No Known Drug Allergies (Verified , 07/24/17) Home Medications Acetylcysteine 600 Mg Capsule, 600 MG PO DAILY PRN for CONGESTION, (Reported) Albuterol Sulfate 18 Gm Hfa.aer.ad, 2 PUFF INH Q4H PRN for SHORTNESS OF BREATH, (Reported) Calcium Carbonate/Vitamin D3 1 Each Tablet, 1 EACH PO DAILY, (Reported) Cholecalciferol (Vitamin D3) 1,000 Unit Capsule, 1,000 UNIT PO DAILY, (Reported) Cyanocobalamin (Vitamin B-12) 250 Mcg Tablet, 250 MCG PO DAILY, (Reported) Dexlansoprazole 60 Mg Cap.dr.bp, 60 MG PO DAILY, (Reported) Diazepam 5 Mg Tablet, 5 MG PO BID PRN for ANXIETY, (Reported) Diltiazem HCl 240 Mg Cap.er.24h, 240 MG PO DAILY, (Reported) Estradiol 0.5 Mg Tablet, 0.5 MG PO DAILY, (Reported) Fexofenadine HCl 180 Mg Tablet, 180 MG PO DAILY, (Reported) Fluoxetine HCl 10 Mg Capsule, 10 MG PO DAILY, (Reported) Fluticasone Propionate 16 Gm [place].susp, 2 SPRAY NS DAILY, (Reported) Hydrocodone/Acetaminophen 1 Each Tablet, 1 EACH PO Q6H PRN for PAIN-MILD TO MODERATE, (Reported) Ipratropium/Albuterol Sulfate 3 Ml Ampul.neb, 3 ML IH Q4H PRN for SHORTNESS OF BREATH, (Reported) Medroxyprogesterone Acetate 5 Mg Tablet, 5 MG PO DAILY, (Reported) Mometasone/Formoterol 13 Gm Hfa.aer.ad, 2 PUFF INH BID, (Reported) Montelukast Sodium 10 Mg Tablet, 10 MG PO HS, (Reported) Nitrofurantoin Monohyd/M-Cryst 100 Mg Capsule, 1 TAB PO BID WITH MEALS Prescribed by: LEISA LOYA on 02/18/18 08 Ondansetron 4 Mg Tab.rapdis, 4 MG PO Q4H PRN for NAUSEA/VOMITING, (Reported) Phenazopyridine HCl 200 Mg Tablet, 1 TAB PO TID Prescribed by: LEISA LOYA on 02/18/18 0859 Pravastatin Sodium 40 Mg Tablet, 40 MG PO HS, (Reported) Prednisone 20 Mg Tab, 40 MG PO DAILY Prescribed by: VIVIAN BARRERA on 05/26/18 1630 Promethazine HCl/Codeine 5 Ml Syrup, 5 ML PO Q6H PRN for COUGH Prescribed by: VIVIAN BARRERA on 08/19/18 1350 Roflumilast 500 Mcg Tablet, 500 MCG PO DAILY, (Reported) Sucralfate 1 Gm/10 Ml Oral.susp, 10 ML PO QID PRN for STOMACH UPSET, (Reported) Umeclidinium [place] 62.5 Mcg Blst.w.dev, 62.5 MCG IH DAILY, (Reported) Varenicline Tartrate 1 Mg Tablet, 1 MG PO BID, (Reported) Patient Home Medication List Home Medication List Reviewed: Yes Review of Systems Review of Systems Constitutional: No chills; fever, malaise EENTM: No ear pain Respiratory: see HPI, cough Cardiovascular: chest pain (with coughing) Gastrointestinal: No abdominal pain, No diarrhea, No nausea, No vomiting Genitourinary: No dysuria, No frequency Musculoskeletal: No back pain, No joint pain Skin: No rash Psychiatric/Neurological: No Symptoms Reported Hematologic/Lymphatic: No Symptoms Reported Immunological/Allergic: no symptoms reported Past Bkyfoli-Dtrvgu-Qsxhye Hx Past Med/Social Hx: Reviewed Nursing Past Med/Soc Hx Patient Social History Alcohol Beverage of Choice: Beer, Jay Type Used: Cigarettes 2nd Hand Smoke Exposure: Yes Recent Foreign Travel: No Contact w/Someone Who Travel: No Recent Hopitalizations: No Immunizations Up To Date Tetanus Booster (TDap): Unknown Date of Pneumonia Vaccine: Oct 24, 2013 Date of Influenza Vaccine: May 26, 2017 Seasonal Allergies Seasonal Allergies: Yes Past Medical History Surgeries: Yes (BUNIONECTOMY, NECK FUSION, BREAST IMPLANTS) Lobectomy, Tubal Ligation Respiratory: Yes ( HX OF LUNG CA, doing sleep study soon, wears oxygen at hs) Asthma, COPD Currently Using CPAP: No Currently Using BIPAP: No Cardiac: No Atrial Fibrillation, High Cholesterol Neurological: No 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 Genitourinary: No Gastrointestinal: Yes Gastroesophageal Reflux, Irritable Bowel Musculoskeletal: Yes (joint pain) Arthritis, Chronic Back Pain Endocrine: No HEENT: No Cancer: Yes Lung What Type of Treatment Did You: Chemotherapy, Radiation, Surgical Intervention Psychosocial: Yes Anxiety, Depression Integumentary: No Blood Disorders: No Adverse Reaction/Blood Tranf: No Family Medical History FH: lung cancer 19 FATHER 19 MOTHER No Pertinent Family Hx Physical Exam Vital Signs - First Documented 10/24/18 12:35 Temp 98.3 Pulse 120 Resp 35 B/P (MAP) 128/82 (97) Pulse Ox 95 Capillary Refill : Height: 5'5.00" Weight: 187lbs. 0.0oz. 84.048439kx; 31.6 BMI Method:Stated General Appearance: WD/WN, mild distress Eyes: Bilateral Eye Normal Inspection HEENT: normal ENT inspection Neck: full range of motion, normal inspection Respiratory: lungs clear, normal breath sounds, no respiratory distress Cardiovascular: regular rate, rhythm Gastrointestinal: normal bowel sounds Extremities: normal range of motion, non-tender, normal inspection Neurologic/Psychiatric: no motor/sensory deficits, alert, normal mood/affect Skin: normal color, warm/dry Progress/Results/Core Measures Suspected Sepsis SIRS Temperature: Pulse: Respiratory Rate: Laboratory Tests 10/24/18 12:56: White Blood Count 14.9H Blood Pressure / Mean: Laboratory Tests 10/24/18 12:56: Creatinine 0.84, INR Comment 1.1, Platelet Count 294, Total Bilirubin 0.4 Results/Orders Lab Results Laboratory Tests Test 10/24/18 12:56 Range/Units White Blood Count 14.9 H 4.3-11.0 10^3/uL Red Blood Count 4.07 L 4.35-5.85 10^6/uL Hemoglobin 13.4 11.5-16.0 G/DL Hematocrit 40 35-52 % Mean Corpuscular Volume 97 80-99 FL Mean Corpuscular Hemoglobin 33 25-34 PG Mean Corpuscular Hemoglobin Concent 34 32-36 G/DL Red Cell Distribution Width 14.7 H 10.0-14.5 % Platelet Count 294 130-400 10^3/uL Mean Platelet Volume 10.2 7.4-10.4 FL Neutrophils (%) (Auto) 79 H 42-75 % Lymphocytes (%) (Auto) 15 12-44 % Monocytes (%) (Auto) 5 0-12 % Eosinophils (%) (Auto) 1 0-10 % Basophils (%) (Auto) 0 0-10 % Neutrophils # (Auto) 11.8 H 1.8-7.8 X 10^3 Lymphocytes # (Auto) 2.2 1.0-4.0 X 10^3 Monocytes # (Auto) 0.7 0.0-1.0 X 10^3 Eosinophils # (Auto) 0.1 0.0-0.3 10^3/uL Basophils # (Auto) 0.0 0.0-0.1 10^3/uL Neutrophils % (Manual) 91 % Lymphocytes % (Manual) 9 % Monocytes % (Manual) 0 % Eosinophils % (Manual) 0 % Basophils % (Manual) 0 % Band Neutrophils 0 % Blood Morphology Comment NORMAL Prothrombin Time 13.8 12.2-14.7 SEC INR Comment 1.1 0.8-1.4 Activated Partial Thromboplast Time 29 24-35 SEC Sodium Level 142 135-145 MMOL/L Potassium Level 3.6 3.6-5.0 MMOL/L Chloride Level 110 H 98-107 MMOL/L Carbon Dioxide Level 21 21-32 MMOL/L Anion Gap 11 5-14 MMOL/L Blood Urea Nitrogen 15 7-18 MG/DL Creatinine 0.84 0.60-1.30 MG/DL Estimat Glomerular Filtration Rate > 60 BUN/Creatinine Ratio 18 Glucose Level 108 H 70-105 MG/DL Calcium Level 9.6 8.5-10.1 MG/DL Corrected Calcium 9.4 8.5-10.1 MG/DL Magnesium Level 1.9 1.8-2.4 MG/DL Total Bilirubin 0.4 0.1-1.0 MG/DL Aspartate Amino Transf (AST/SGOT) 21 5-34 U/L Alanine Aminotransferase (ALT/SGPT) 20 0-55 U/L Alkaline Phosphatase 75 40-136 U/L Myoglobin 23.5 10.0-92.0 NG/ML Troponin I < 0.028 <0.028 NG/ML B-Type Natriuretic Peptide 58.5 <100.0 PG/ML Total Protein 7.2 6.4-8.2 GM/DL Albumin 4.3 3.2-4.5 GM/DL Micro Results Microbiology 10/24/18 Influenza Types A,B Antigen (NICOLETTE) - Final, Complete My Orders Orders - MARYANNE LOMELI MD Methylprednisolone Sod Succ (Solu-Medrol (10/24/18 13:15) Medications Given in ED Current Medications Medications Dose Ordered Sig/Caitlin Route Start Time Stop Time Status Last Admin Dose Admin Aspirin 324 mg ONCE ONCE PO 10/24/18 12:45 10/24/18 12:46 DC 10/24/18 13:55 324 MG Methylprednisolone Sodium Succinate 125 mg ONCE ONCE IVP 10/24/18 13:15 10/24/18 13:16 DC 10/24/18 13:55 125 MG Vital Signs/I&O 10/24/18 12:35 Temp 98.3 Pulse 120 Resp 35 B/P (MAP) 128/82 (97) Pulse Ox 95 Capillary Refill : Progress Note : Time: 14:37 Progress Note The patient improved with an albuterol breathing treatment. Laboratory evaluation failed to demonstrate evidence of acute pathology other than a marginal leukocytosis of 14,000. Patient's chest x-ray failed to demonstrate evidence of an infiltrate. Patient was given 125 mg Solu-Medrol IV. Departure Impression Primary Impression: COPD (chronic obstructive pulmonary disease) Qualified Codes: J44.1 - Chronic obstructive pulmonary disease with (acute) exacerbation Disposition: 01 HOME, SELF-CARE Condition: Improved Departure-Patient Inst. Decision time for Depature: 14:45 Referrals: SHELLEY ROSENBERG DO (PCP) Primary Care Physician Patient Instructions: Exacerbation of COPD Add. Discharge Instructions: Prednisone and Zithromax as prescribed close follow-up to on Saturday. Return if any problems or questions. All discharge instructions reviewed with patient and/or family. Voiced understanding. MARYANNE LOMELI MD Oct 24, 2018 13:17
[2018-10-24 13:32] LABS: ALANINE AMINOTRANSFERASE 20 U/L (0-55); ALBUMIN 4.3 GM/DL (3.2-4.5); ALKALINE PHOSPHATASE 75 U/L (40-136); BILIRUBIN,TOTAL 0.4 MG/DL (0.1-1.0); BUN/CREATININE RATIO 18; CALCIUM 9.6 MG/DL (8.5-10.1); CARBON DIOXIDE 21 MMOL/L (21-32); CHLORIDE 110 MMOL/L (98-107); CREATININE SERUM 0.84 MG/DL (0.60-1.30); GFR ESTIMATED > 60; GLUCOSE 108 MG/DL (70-105); MAGNESIUM 1.9 MG/DL (1.8-2.4); POTASSIUM 3.6 MMOL/L (3.6-5.0); SODIUM 142 MMOL/L (135-145); TOTAL PROTEIN 7.2 GM/DL (6.4-8.2)
[2018-10-24 13:33] LABS: INR 1.1 (0.8-1.4); PROTHROMBIN TIME PATIENT 13.8 SEC (12.2-14.7)
[2018-10-24 13:40] LABS: MYOGLOBIN SERUM 23.5 NG/ML (10.0-92.0)
[2018-10-24 13:59] LABS: BAND NEUTROPHILS 0 %; BASOPHILS % (MANUAL) 0 %; EOSINOPHILS % (MANUAL) 0 %; LYMPHOCYTES % (MANUAL) 9 %; MONOCYTES % (MANUAL) 0 %; NEUTROPHILS % (MANUAL) 91 %; RBC MORPH NORMAL
[2018-10-24 14:59] VITALS: BP 119/63
== END 2018-10-24 15:03 | disposition home or self-care (01) ==
LOC: EDUNIT# 12:31 → ER 12:33
DX: J44.9 Chronic obstructive pulmonary disease, unspecified (principal); I48.91 Unspecified atrial fibrillation; E78.00 Pure hypercholesterolemia, unspecified; K21.9 Gastro-esophageal reflux disease without esophagitis; K58.9 Irritable bowel syndrome, unspecified; F41.9 Anxiety disorder, unspecified; F32.9 Major depressive disorder, single episode, unspecified; Z92.21 Personal history of antineoplastic chemotherapy; Z79.51 Long term (current) use of inhaled steroids; Z79.52 Long term (current) use of systemic steroids; Z98.82 Breast implant status; Z85.118 Personal history of other malignant neoplasm of bronchus and lung; Z80.1 Family history of malignant neoplasm of trachea, bronchus and lung; Z77.22 Contact with and (suspected) exposure to environmental tobacco smoke (acute) (chronic); Z98.51 Tubal ligation status; Z98.1 Arthrodesis status; Z90.2 Acquired absence of lung [part of]
CPT/HCPCS: 36415; 71045; 80053; 83735; 83874; 83880; 84484; 85007; 85027; 85610; 85730; 87804; 93005; 93041

== ENCOUNTER 2018-11-28 14:55 | Outpatient (RCR) | payer MEDICARE, MEDICAID ==
[2018-10-28 12:45] VITALS: BP 110/71
[2018-10-28] MEDS: MEPOLIZUMAB 100 MG (NUCALA) VIAL SQ SCH (12:57)
[~2018-11-28] VITALS: Ht 165.1 cm; Wt 79.8 kg
[~2018-11-28 14:55] MED LIST changes: +CATHETER FLUSH 10 ML SYR IV PRN; +NS IV 1000 ML 1,000 ML IV SCH; -SOTA80TA PO; +STL80T PO
[2018-11-28] MEDS: MEPOLIZUMAB 100 MG (NUCALA) VIAL SQ SCH (15:20)
[2018-11-28 15:25] VITALS: BP 117/78
[2018-12-04] MEDS ORDERED: GABA-488 PO (14:10)
[2018-12-04] MEDS ORDERED: ALB0.5V INH (14:10)
[2018-12-04] MEDS ORDERED: NICO1PAT34 TD (14:10)
[2018-12-04] MEDS ORDERED: APIX5TAB4 PO (14:10)
[2018-12-04] MEDS ORDERED: MEPO100V SQ (14:10)
[2018-12-04] MEDS ORDERED: ESTR1TAB24 PO (14:10)
[2018-12-04] MEDS ORDERED: ROFL500T PO (14:10)
[2018-12-04] MEDS ORDERED: ONDA4TAB11 PO (14:10)
[2018-12-04] MEDS ORDERED: FLUT1BLS3 IH (14:10)
[2018-12-04] MEDS ORDERED: TIZA4CAP PO (14:10)
[2018-12-04] MEDS ORDERED: FLUO20CA42 PO (14:10)
[2018-12-04] MEDS ORDERED: BUSP5TAB59 PO (14:10)
== END 2019-01-26 | disposition home or self-care (01) ==
LOC: SDC 14:55
PROVIDERS: ATTEND Internal Medicine Critical Care Medicine
DX: J45.50 Severe persistent asthma, uncomplicated (principal); J82 Pulmonary eosinophilia, not elsewhere classified; Z79.899 Other long term (current) drug therapy
CPT/HCPCS: 96372

== ENCOUNTER 2018-12-04 13:44 | Outpatient (CLI) | payer MEDICARE, MEDICAID ==
[~2018-12-04] VITALS: Ht 165.1 cm; Wt 84.5 kg
[~2018-12-04 13:44] MED LIST changes: -CATHETER FLUSH 10 ML SYR IV PRN; -NS IV 1000 ML 1,000 ML IV SCH; +SOTA80TA PO; -STL80T PO
[2018-12-04] MEDS ORDERED: FLUO20CA42 PO (14:10)
[2018-12-04] MEDS ORDERED: ROFL500T PO (14:10)
[2018-12-04] MEDS ORDERED: ALB0.5V INH (14:10)
[2018-12-04] MEDS ORDERED: GABA-488 PO (14:10)
[2018-12-04] MEDS ORDERED: APIX5TAB4 PO (14:10)
[2018-12-04] MEDS ORDERED: TIZA4CAP PO (14:10)
[2018-12-04] MEDS ORDERED: ESTR1TAB24 PO (14:10)
[2018-12-04] MEDS ORDERED: MEPO100V SQ (14:10)
[2018-12-04] MEDS ORDERED: FLUT1BLS3 IH (14:10)
[2018-12-04] MEDS ORDERED: BUSP5TAB59 PO (14:10)
[2018-12-04] MEDS ORDERED: NICO1PAT34 TD (14:10)
[2018-12-04] MEDS ORDERED: ONDA4TAB11 PO (14:10)
[2018-12-04 14:21] VITALS: BP 110/76
[2018-12-04 15:01] LABS: BASOPHILS % (AUTO) 0 % (0-10); EOSINOPHILS # (AUTO) 0.1 10^3/uL (0.0-0.3); EOSINOPHILS % (AUTO) 1 % (0-10); HEMATOCRIT 39 % (35-52); LYMPHOCYTES # (AUTO) 2.1 X 10^3 (1.0-4.0); LYMPHOCYTES % (AUTO) 25 % (12-44); MEAN CORPUSCULAR HEMOGLOBIN 34 PG (25-34); MEAN CORPUSCULAR HGB CONC 34 G/DL (32-36); MEAN CORPUSCULAR VOLUME 100 FL (80-99); MEAN PLATELET VOLUME 10.3 FL (7.4-10.4); MONOCYTES # (AUTO) 0.7 X 10^3 (0.0-1.0); MONOCYTES % (AUTO) 8 % (0-12); NEUTROPHILS # (AUTO) 5.7 X 10^3 (1.8-7.8); NEUTROPHILS % (AUTO) 66 % (42-75); PLATELET COUNT 273 10^3/uL (130-400); RED CELL DISTRIBUTION WIDTH 14.9 % (10.0-14.5); WHITE BLOOD COUNT 8.7 10^3/uL (4.3-11.0)
[2018-12-04 15:07] LABS: BILIRUBIN,URINE NEGATIVE (NEGATIVE); GLUCOSE, URINE (UA) NEGATIVE (NEGATIVE); KETONES,URINE 1+ (NEGATIVE); LEUKOCYTE ESTERASE ,URINE 1+ (NEGATIVE); NITRITE,URINE NEGATIVE (NEGATIVE); PH,URINE 5 (5-9); PROTEIN,URINE 1+ (NEGATIVE); UROBILINOGEN,URINE NORMAL (NORMAL)
[2018-12-04 15:08] LABS: CLARITY,URINE CLEAR; COLOR,URINE YELLOW
[2018-12-04 15:10] LABS: BACTERIA,URINE NEGATIVE /HPF; WBC,URINE 0-2 /HPF
== END 2018-12-04 15:34 | disposition home or self-care (01) ==
LOC: PREOP 13:44
PROVIDERS: ATTEND Obstetrics & Gynecology
DX: Z01.812 Encounter for preprocedural laboratory examination (principal); Z11.2 Encounter for screening for other bacterial diseases; N81.9 Female genital prolapse, unspecified; N95.0 Postmenopausal bleeding; D25.9 Leiomyoma of uterus, unspecified
CPT/HCPCS: 36415; 81000; 85025; 86850; 86900; 86901; 87081

== ENCOUNTER 2018-12-09 06:05 | Day surgery (SDC) | payer MEDICARE, MEDICAID ==
[~2018-12-09] VITALS: Ht 165.1 cm; Wt 81.2 kg
[~2018-12-09 06:05] MED LIST changes: +ALB0.5V INH; +APIX5TAB4 PO; +BUSP5TAB59 PO; +ESTR1TAB24 PO; +FLUO20CA42 PO; +FLUT1BLS3 IH; +MEPO100V SQ; +NICO1PAT34 TD; +ONDA4TAB11 PO; -SOTA80TA PO; +STL80T PO; +TIZA4CAP PO
[2018-12-09 06:15] VITALS: BP 105/83
[2018-12-09] MEDS ORDERED: metroNIDAZOLE 500MG/100ML IVPB 100 ML IV ONE (06:30)
[2018-12-09] MEDS ORDERED: ceFAZolin INJECTION 1,000 MG in WATER (STERILE) FOR INJECTION 10 ML IV ONE (06:30)
[2018-12-09] MEDS: LACTATED RINGERS 1,000 ML IV PRN ×3 (06:39→09:25)
[2018-12-09] MEDS ORDERED: CATHETER FLUSH 10 ML SYR IV PRN (07:00)
[2018-12-09] MEDS ORDERED: LACTATED RINGERS 1,000 ML IV ONE ×2 (07:01→10:01)
[2018-12-09] MEDS ORDERED: DEXAMETHASONE 10 MG/ML (DECADRON) 1 ML VIAL ONE (07:01)
[2018-12-09] MEDS ORDERED: ONDANSETRON 4 MG/2 ML (SDV) Z0FRAN ONE (07:01)
[2018-12-09] MEDS ORDERED: MIDAZOLAM 2 MG/2 ML (VERSED) VIAL ONE (07:01)
[2018-12-09] MEDS ORDERED: SEVOFLURANE (ULTANE) 15 ML INHAL SOLN ONE ×9 (07:01→09:54)
[2018-12-09] MEDS ORDERED: LIDOCAINE PF 2% 5 ML (XYLOCAINE) VIAL ONE (07:01)
[2018-12-09] MEDS ORDERED: ROCURONIUM 10 MG/ML 5 ML SYRINGE IV ONE ×2 (07:01→09:48)
[2018-12-09] MEDS ORDERED: fentaNYL INJECTION 100 MCG/2 ML AMP ONE ×2 (07:01→09:04)
[2018-12-09] MEDS ORDERED: proPOfol 200 MG/20 ML (DIPRIVAN) VIAL IV ONE (07:01)
--- NOTE | 2018-12-09 07:05 | Progress Note-Pre Operative ---
Pre-Operative Progress Note H&P Reviewed The H&P was reviewed, patient examined and no changes noted. Date Seen by Provider: Dec 09, 2018 Time Seen by Provider: 07:04 Date H&P Reviewed: Dec 09, 2018 Time H&P Reviewed: 07:04 Pre-Operative Diagnosis: INCONTINENCE, ISD, AND OAB LISANDRA CORONA MD Dec 09, 2018 07:05
[2018-12-09] MEDS ORDERED: FAMOTIDINE 20MG/2ML IV (PEPCID) ONE (07:06)
[2018-12-09] MEDS ORDERED: BUP/EPI 0.5% 1:200,000 (SENSORCAINE) 30 ML VIAL ONE (07:06)
[2018-12-09] MEDS ORDERED: NS (IVPB) 100 ML ONE (07:06)
[2018-12-09] MEDS ORDERED: ESTRADIOL VAGINAL CREAM 42.5 GM (ESTRACE) VG ONE (07:06)
[2018-12-09] MEDS ORDERED: VASOPRESSIN INJECTION 20 UNIT/ML VIAL ONE (07:06)
[2018-12-09] MEDS ORDERED: FAMOTIDINE 20MG/2ML IV (PEPCID) IVP ONE (07:30)
--- NOTE | 2018-12-09 07:42 | Progress Note-Pre Operative ---
Pre-Operative Progress Note H&P Reviewed The H&P was reviewed, patient examined and no changes noted. Date Seen by Provider: Dec 09, 2018 Time Seen by Provider: 07:30 Date H&P Reviewed: Dec 09, 2018 Time H&P Reviewed: 07:04 Pre-Operative Diagnosis: incomplete genital prolapse YOMI BRIGGS DO Dec 09, 2018 07:42
--- NOTE | 2018-12-09 09:38 | Progress Note-Post Operative ---
Post-Operative Progess Note Surgeon (s)/End Lathe Operator (s) Surgeon LISANDRA CORONA MD End Lathe Operator: NONE Pre-Operative Diagnosis MIXED INCONTINENCE, ISD, AND OAB Post-Operative Diagnosis SAME Procedure & Operative Findings Date of Procedure 12/09/18 Procedure Performed/Findings PVS AND CYSTOSCOPY Anesthesia Type GENERAL Estimated Blood Loss Estimated blood loss (mL): NEGLIGIBLE Specimens/Packing Specimens Removed NONE Packing: VAGINAL PACK LISANDRA CORONA MD Dec 09, 2018 09:38
[2018-12-09] MEDS ORDERED: GLYCOPYRROLATE 0.2 MG/ML (ROBINUL) 2 ML VIAL ONE (09:49)
[2018-12-09] MEDS ORDERED: NEOSTIGMINE 1 MG/ML 5 ML SYRINGE ONE (09:49)
--- NOTE | 2018-12-09 09:55 | Operative Report ---
Operative Report Date of Procedure/Surgery Dec 09, 2018 Surgeon (s) YOMI BRIGGS DO Social Service Coordinator (s): NONE Post-Operative Diagnosis SAME Procedure Performed RaTH, BSO, anterior posterior colporrhaphy Description of Procedure Anesthesia Type: General Estimated blood loss (mL): 200 Specimen(s) collected/removed uterus, bilateral, tubes and ovaries Packing: VAGINAL PACK Description of the Procedure After informed consent was obtained, patient was taken into the operating room where general anesthetic was found to be adequate. She was prepped and draped in the usual sterile fashion in the dorsal lithotomy position. A Simmons catheter was placed. A speculum was placed in the vagina. The cervix was visualized and there is a large rectocele (not noticed in the office). The anterior lip of the cervix was grasped with a sharp toothed tenaculum. The uterus was sounded and depth was approximately 8 centimeters. I placed the Kalina. And then set the Kalina to 12 cm and a 4.0 cm collar was advanced over the cervix. I inserted the Kalina without difficulty, inflating the balloon and securing it around the fornix of the cervix. The collar was then secured with sutures at 12 o'clock. Attention was then turned to the patient's abdomen. A supraumbilical incision was made about 8 mm. A Veress needle was inserted and I had difficulty confirming intraabdominal placement, but was eventually able to confirm with a drop in pressure and the saline drop test. I then insufflated the abdomen to a maximum of 15 mmHg with warmed CO2 gas. I then placed an 8 mm trocar and then the Da Alejandro camera and intraperitoneal placement was confirmed. I then determined the procedure could be continued robotically. The first robotic port was placed about 15 cm lateral to the right and left of the umbilical placement and slightly inferior. These are both 8 mm trocars. These were placed under direct visualization of the laparoscope. 0.25% Marcaine was injected prior to placement of all trocars. When all placements were confirmed, the patient was placed in steep Trendelenburg allowing adequate visualization and the robot was brought in for docking. The docking was accomplished without difficulty. A survey of the pelvis confirmed the above mentioned findings. I was able to visualize the round ligaments bilaterally and grasped them and cauterized with bipolar cautery and then cut with my butch. I now grasped the infundibulopelvic ligaments bilaterally. Cauterized with the bipolar graspers and then cut with the butch. I then moved my dissection to the posterior leaves of the broad ligament. I dissected the posterior leaves of the broad ligament off the uterine arteries skeletonizing them bilaterally. I then took a second clamp with the bipolar cautery and with the butch, transected the vessels away from the lateral aspect to the cervical stroma. I dissected the anterior peritoneum off the lower uterine segment. I continually pushed the bladder back and I took excessively great care and I was eventually able to dissect the vesicouterine peritoneum off the lower uterine segment. I then dissected in a V fashion towards the midline between the uterosacral ligaments. This allowed me to skeletonize the uterine vessels bilaterally. The balloon on the KALINA was insufflated. This allowed me to see the KALINA circumferentially. I then performed a colpotomy anteriorly and then amputate with cervix away from the vaginal fornix. I then continued the colpotomy circumferentially. Once this was performed, the assistant auditor removed the uterus through the vagina. A sponge was left in the vagina to maintain pneumoperitoneum. I then began closure of the vaginal cuff. The uterus was left in the vagina to maintain pneumoperitoneum. I closed the apices of the vaginal cuff with 2-0 Vicryl V lock sutures with a colposuspension through the uterosacral ligaments. This suspended the apices of the vaginal cuff. I extended this to the midline from both sides and overlapped the V lock sutures in the midline. Excellent closure is noted and hemostasis is achieved. The pelvis was irrigated. All the needles were removed from the patient's abdomen. The robot was undocked. Due to the history of anticoagulation, though there was minimal bleeding, I placed Surgiflow along the cut edge at the cuff and the IP ligaments bilaterally. The instruments were now removed. The large trocar facial incision was repaired with 0 Vicryl and the skin incisions with 4-0 Monocryl and then bandages were placed. Patient was now repositioned for the vaginal portion of the procedure. The anterior vaginal epithelium was grasped in the midline with an Allis clamp. The anterior vaginal epithelium was injected with dilute vasopressin. A midline incision was made i with a scalpel The vaginal epithelium was dissected off the papulovesicular fascia to the white line and then the large cystocele was reduce with two layers of interrupted mattress style sutures of 2-[address] Valdez now came in to do the sling procedure. The Simmons was replaced in the bladder. Once he was finished, I noted that he had buttonholed the tissue in the right periurethral area, so the epithelium was cut to allow the mesh to lie in the normal position. I then trimmed the excess vaginal tissue and closed the anterior defect in a running fashion of 2-0 Vicryl. The posterior vaginal epithelium was now injected with dilute vasopressin and a midline incision was made in the perineum. I then undermined the posterior vaginal epithelium with Del Angel scissors and cut in the vaginal epithelium in the midline. Once the epithelium was dissected off of the posterior pubovaginal fascia I closed the defect with interrupted mattress style sutures of 2-0 Vicryl reducing the small rectocele. I then trimmed the excess vaginal tissue and closed the vaginal defect with 2-0 Vicryl in a running fashion. Vaginal packing with Estrace cream was placed. The cuff was not bleeding. Following the case, instrument counts were correct. The patient was repositioned in the supine position and awakened from general anesthesia without difficulty. She was taken to recovery in stable condition. She will be observed overnight. Findings of the Procedure 3+ uterine prolapse, small uterus with submucosal fibroids, evidence of tubal separation, scarred tubes and ovaries. 3+ cystocele, small rectocele Allergies and Home Medications Allergies Coded Allergies: No Known Drug Allergies (Unverified , 12/04/18) Home Medications Acetylcysteine 600 Mg Capsule, 600 MG PO DAILY, (Reported) Albuterol Sulfate 18 Gm Hfa.aer.ad, 2 PUFF INH Q4H PRN for SHORTNESS OF BREATH, (Reported) Albuterol Sulfate 2.5 Mg/0.5 Ml Vial.neb, 2.5 MG INH Q4H PRN for SHORTNESS OF BREATH, (Reported) Apixaban 5 Mg Tab.ds.pk, 2.5 MG PO BID, (Reported) Buspirone HCl 5 Mg Tablet, 5 MG PO BID, (Reported) Cholecalciferol (Vitamin D3) 1,000 Unit Capsule, 1,000 UNIT PO DAILY, (Reported) Dexlansoprazole 60 Mg Cap.drKodakbp, 60 MG PO DAILY, (Reported) Diltiazem HCl 240 Mg Cap.er.24h, 240 MG PO DAILY, (Reported) Estradiol 1 Mg Tablet, 1 MG PO DAILY, (Reported) Fexofenadine HCl 180 Mg Tablet, 180 MG PO DAILY, (Reported) Fluoxetine HCl 20 Mg Capsule, 20 MG PO DAILY, (Reported) Fluticasone Propionate 16 Gm [place].susp, 2 SPRAY NS DAILY, (Reported) Fluticasone/Umeclidin/Vilanter 1 Each Blst.w.dev, 1 EACH IH DAILY, (Reported) Gabapentin 300 Mg Capsule, 300 MG PO DAILY, (Reported) Hydrocodone/Acetaminophen 1 Each Tablet, 1 EACH PO Q6H PRN for PAIN-MILD TO MODERATE, (Reported) Mepolizumab (Recombinant) 100 Mg Vial, 100 MG SQ MONTHLY, (Reported) Montelukast Sodium 10 Mg Tablet, 10 MG PO HS, (Reported) Nicotine 1 Each Patch.td24, 21 MG TD DAILY, (Reported) Ondansetron 4 Mg Tab.rapdis, 4 MG PO Q4H PRN for NAUSEA/VOMITING, (Reported) Pravastatin Sodium 40 Mg Tablet, 40 MG PO HS, (Reported) Roflumilast 500 Mcg Tablet, 500 MCG PO DAILY, (Reported) Tizanidine HCl 4 Mg Capsule, 4 MG PO DAILY PRN for PAIN-MODERATE, (Reported) Patient Home Medication List Home Medication List Reviewed: YOMI Hubbard DO Dec 09, 2018 09:55
[2018-12-09] MEDS ORDERED: morphine INJ 10 MG/ML 1ML (SYR OR VIAL) IV PRN (10:00)
[2018-12-09] MEDS ORDERED: RT-ALBUTEROL SULF 2.5 MG/3 ML PRE-MIX VIAL INH PRN (10:00)
[2018-12-09] MEDS ORDERED: ANTACID SUSP 30 ML UDC (MYLANTA) PO PRN (10:00)
[2018-12-09] MEDS ORDERED: ONDANSETRON 4 MG/2 ML (SDV) Z0FRAN IV PRN ×2 (10:00)
[2018-12-09] MEDS ORDERED: ONDANSETRON 4 MG (ZOFRAN) ORAL DISSOLVE TAB PO PRN (10:00)
[2018-12-09] MEDS ORDERED: RT-ALBUTEROL HFA (VENTOLIN) PER PUFF IH PRN (10:00)
[2018-12-09] MEDS ORDERED: MEPOLIZUMAB 100 MG SQ SCH (10:00)
[2018-12-09] MEDS ORDERED: SIMETHICONE 80 MG (MYLICON) CHEW PO PRN (10:00)
[2018-12-09] MEDS ORDERED: BENZOCAINE/MENTHOL (DERMOPLAST) 56 ML CAN TP PRN (10:00)
[2018-12-09] MEDS ORDERED: DOCUSATE SODIUM 100 MG (COLACE) CAP PO PRN (10:00)
[2018-12-09] MEDS ORDERED: CHLORASEPTIC LOZENGE MM PRN (10:00)
[2018-12-09] MEDS ORDERED: ONDANSETRON 4 MG/2 ML (SDV) Z0FRAN IVP PRN (10:15)
[2018-12-09] MEDS ORDERED: morphine INJ 10 MG/ML 1ML (SYR OR VIAL) IVP ONE (10:15)
[2018-12-09] MEDS: KETOROLAC 30 MG/ML VIAL IV SCH ×3 (10:40→23:30)
[2018-12-09] MEDS ORDERED: MEPERIDINE (DEMEROL) INJ 50 MG/ML ONE (10:49)
[2018-12-09] MEDS ORDERED: MEPERIDINE (DEMEROL) INJ 50 MG/ML IVP ONE (11:00)
--- NOTE | 2018-12-09 11:20 | NUR ---
ROC NAYAK admitted to room 3306-1, with an admitting diagnosis of postop RATH, on 12-09-18 from [facility] via cart, accompanied by [facility] staff.ROC NAYAK introduced to surroundings, call light, bed controls, phone, TV, temperature control, lights, meal times, smoking policy, visitor policy, side rail policy, bathrooms and showers. Patient Rights given to patient in the handbook. ROC NAYAK verbalizes understanding that [facility] is not responsible for the loss or damage to any personal effects or valuables that are kept in the patients posession during their hospitalization. The following Patient Care Plans were discussed with the patient: Discharge Planning, pain management, postop plan of care. ROC NAYAK verbalizes understanding of Interdisciplinary Patient Education. Patient and/or family were informed about the Rapid Response Team and its purpose.
[2018-12-09 11:35] VITALS: BP 109/58
[2018-12-09] MEDS ORDERED: PATIENT MAY USE OWN MEDS, ALL MC SCH (13:15)
[2018-12-09] MEDS ORDERED: NICOTINE 21 MG (NICODERM) PATCH TD SCH (13:28)
--- NOTE | 2018-12-09 13:29 | OPERATIVE REPORT ---
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 POSTOPERATIVE DIAGNOSIS: On my part, mixed urinary incontinence with intrinsic sphincter deficiency and overactive bladder. OPERATION PERFORMED: Pubovaginal sling and cystoscopy. SURGEON: Lonnie Corona MD. ANESTHESIA: General. COMPLICATIONS: None. DESCRIPTION OF PROCEDURE: After Dr. Sawyer did her part of the surgery and she will dictate, I went ahead and passed the Solyx device using the described technique on both sides. The sling was sitting nicely under the mid urethra with no twisting or tension, passage of a curved hemostat easily between it and the underlying tissue. I removed the Simmons catheter to perform cystoscopy to confirm the integrity of the bladder, ureteral orifices and urethra and presence of the sling under the mid urethra. I left the bladder at least half full to perform a manual Valsalva maneuver after removing the scope and it was negative. I reinserted a Simmons catheter, draining again clear urine. Estimated blood loss on my part negligible and Dr. Sawyer procedure was the rest of her surgery that she will dictate. Job ID: [id number] DocumentID: [id number] Dictated Date: 12/09/2018 09:40:48 Inventory Transcriber Date: 12/09/2018 13:27:57 Dictated By: LONNIE CORONA MD
[2018-12-09] MEDS ORDERED: TRELEGY ELLIPTA IH SCH (13:30)
[2018-12-09] MEDS ORDERED: ESTRADIOL 0.1 MG PATCH (CLIMARA) TD NR (13:43)
[2018-12-09 14:30] VITALS: BP 106/62
--- NOTE | 2018-12-09 16:00 | NUR ---
dr guadalupe notified of patient request for meds for bladder pain/pressure. reports she will place new orders for meds. .
[2018-12-09] MEDS ORDERED: BELLADONNA ALK/OPIUM (B & O) 30 MG SUPP PR PRN (16:15)
[2018-12-09] MEDS ORDERED: PHENAZOPYRIDINE 100 MG (PYRIDIUM) TABLET PO SCH (18:00)
[2018-12-09] MEDS: ACETAMINOPHEN 500 MG TAB (TYLENOL) PO SCH (19:15)
[2018-12-09 20:00] VITALS: BP 96/54
[2018-12-09] MEDS ORDERED: MONTELUKAST 10 MG (SINGULAIR) TAB PO SCH (21:00)
[2018-12-09] MEDS ORDERED: busPIRone 5 MG (BUSPAR) TAB PO SCH (21:00)
[2018-12-09] MEDS ORDERED: SIMvastatin 20 MG (ZOCOR) TAB PO SCH (21:00)
[2018-12-09] MEDS: LACTATED RINGERS 1,000 ML IV SCH (21:52)
[2018-12-09 21:55] VITALS: BP 111/66
[2018-12-10] MEDS: LACTATED RINGERS 1,000 ML IV SCH (01:55)
[2018-12-10] MEDS: ACETAMINOPHEN 500 MG TAB (TYLENOL) PO SCH (03:26)
[2018-12-10 03:27] VITALS: BP 112/69
[2018-12-10] MEDS ORDERED: KETOROLAC 30 MG/ML VIAL ONE (05:36)
--- NOTE | 2018-12-10 06:40 | NUR ---
pt up to br to void. 200cc of clear/yellow urine noted. pericare discussed and demonstrated with pt. tolerated well.
--- NOTE | 2018-12-10 08:13 | Anesthesia-General Post-Op ---
General Patient Condition Mental Status/LOC: Same as Preop Cardiovascular: Satisfactory Nausea/Vomiting: Absent Respiratory: Satisfactory Pain: Controlled Complications: Absent Post Op Complications Complications None Follow Up Care/Instructions Patient Instructions None needed. Anesthesia/Patient Condition Patient Condition Patient is doing well, no complaints, stable vital signs, no apparent adverse anesthesia problems. No complications reported per nursing. D/C home per [facility] Criteria: Yes [place] CHEEMA CRNA Dec 10, 2018 08:13
[2018-12-10 08:38] VITALS: BP 107/58
[2018-12-10 08:58] LABS: BASOPHILS % (AUTO) 0 % (0-10); EOSINOPHILS % (AUTO) 0 % (0-10); HEMATOCRIT 31 % (35-52); HEMOGLOBIN 10.2 G/DL (11.5-16.0); LYMPHOCYTES # (AUTO) 1.4 X 10^3 (1.0-4.0); LYMPHOCYTES % (AUTO) 9 % (12-44); MEAN CORPUSCULAR HEMOGLOBIN 33 PG (25-34); MEAN CORPUSCULAR HGB CONC 33 G/DL (32-36); MEAN CORPUSCULAR VOLUME 102 FL (80-99); MEAN PLATELET VOLUME 9.8 FL (7.4-10.4); MONOCYTES # (AUTO) 1.2 X 10^3 (0.0-1.0); MONOCYTES % (AUTO) 7 % (0-12); NEUTROPHILS # (AUTO) 13.4 X 10^3 (1.8-7.8); NEUTROPHILS % (AUTO) 84 % (42-75); PLATELET COUNT 247 10^3/uL (130-400); RED CELL DISTRIBUTION WIDTH 14.7 % (10.0-14.5); WHITE BLOOD COUNT 15.9 10^3/uL (4.3-11.0)
[2018-12-10] MEDS ORDERED: DILTIAZEM 240 MG (CARDIZEM CD) CAP PO SCH (09:00)
[2018-12-10] MEDS ORDERED: VITAMIN D3 1,000 UNITS (CHOLECALCIFEROL) TABLET PO SCH (09:00)
[2018-12-10] MEDS ORDERED: DOCUSATE SODIUM 100 MG (COLACE) CAP PO SCH (09:00)
[2018-12-10] MEDS ORDERED: LORATADINE (CLARITIN) 10 MG TAB PO SCH (09:00)
[2018-12-10] MEDS ORDERED: ROFLUMILAST 500 MCG TAB (DALIRESP) PO SCH (09:00)
[2018-12-10] MEDS ORDERED: ACETYLCYSTEINE 600 MG PO SCH (09:00)
[2018-12-10] MEDS ORDERED: ESTRADIOL 1 MG TAB (ESTRACE) PO SCH (09:00)
[2018-12-10] MEDS ORDERED: FLUTICASONE NASAL SPRAY (FLONASE) 16 GM BTL NS SCH (09:00)
[2018-12-10] MEDS ORDERED: PANTOPRAZOLE 40 MG (PROTONIX) TAB PO SCH (09:00)
[2018-12-10] MEDS ORDERED: GABAPENTIN 300 MG (NEURONTIN) CAP PO SCH (09:00)
[2018-12-10] MEDS ORDERED: FLUoxetine HCL 20 MG (PROzac) CAP PO SCH (09:00)
[2018-12-10] MEDS ORDERED: medroxyPROGESTERone 2.5 MG (PROVERA) TABLET PO SCH (09:00)
--- NOTE | 2018-12-10 09:05 | NUR ---
Dr Sawyer here to see pt. D/C orders rec'd
[2018-12-10 09:53] LABS: ANISOCYTOSIS SLIGHT; LYMPHOCYTES % (MANUAL) 9 %; MONOCYTES % (MANUAL) 4 %; NEUTROPHILS % (MANUAL) 87 %
[2018-12-10] MEDS ORDERED: IBUPROFEN 600 MG (MOTRIN) TAB PO SCH (10:00)
--- NOTE | 2018-12-10 10:02 | NUR ---
Follow up appt made with Dr. Sawyer's office
--- NOTE | 2018-12-10 10:09 | Discharge Inst-Women's Service ---
Discharge Inst-Women's Serv Depart Medication/Instructions New, Converted or Re-Newed RX: Other Instructions begin eliquis after return home Final Diagnosis stress incontinence cystocele Genital prolapse uterine fibroid menorrhagia Consults/Follow Up Additional Follow Up: Yes Activity Activity: Activity as Tolerated Driving Instructions: No Driving for 1 Week NO SMOKING: NO SMOKING Nothing Inside Vagina: No Douching, No [place], No Tampons Diet Discharge Diet: No Restrictions Symptoms to Report to : Swelling Increased, Bleeding Excessive, Pain Increased, Fever Over 101 Degrees F, Vaginal Bleeding Increase, Cramps in Feet or Legs, Vaginal Discharge Foul For Any Problems or Questions: Contact Your Physician Skin/Wound Care Infection Signs and Symptoms: Increased Redness, Foul Odor of Wound, Increased Drainage, Skin Itchy or Has a Rash, Increased Swelling, Temperature Above 101 F Operative Area Clean and Dry: Keep Incision Clean/Dry Stitches/William/Dermabond: Dermabond Bathing Instructions: YOMI Lynch DO Dec 10, 2018 10:09
--- NOTE | 2018-12-10 10:50 | NUR ---
Dr. Valdez called and updated on pt cares, pt voided, bladder scan showed empty bladder and pt voices she feels she emptied well. OK to D/C home with follow up in 2 weeks
--- NOTE | 2018-12-10 10:52 | NUR ---
Follow up appointment made with Dr. Valdez's office
[2018-12-10] MEDS ORDERED: ENOXAPARIN 40 MG/0.4 ML (LOVENOX) SYR ONE (11:26)
--- NOTE | 2018-12-10 11:45 | NUR ---
Discharge instructions explained to pt with copy provided to pt. Pt updated on plan with medications per Dr. Sawyer's instructions. Pt denies questions or concerns at this time. Verbalizes understanding of instruction, and signs to verify.
--- NOTE | 2018-12-10 12:00 | NUR ---
Pt taken off unit via ambulation accompanied by RN to private vehicle. All personal belongings with pt. No s/s of distress noted.
[2018-12-11] MEDS ORDERED: ENOXAPARIN 40 MG/0.4 ML (LOVENOX) SYR SC SCH (09:00)
== END 2018-12-10 12:00 | disposition home or self-care (01) ==
LOC: SDC 06:05 → WS 11:20 → SDC 12-10 12:00
PROVIDERS: ATTEND Obstetrics & Gynecology
DX: N81.3 Complete uterovaginal prolapse (principal); D25.0 Submucous leiomyoma of uterus; N36.42 Intrinsic sphincter deficiency (ISD); N39.46 Mixed incontinence; N32.81 Overactive bladder; N92.6 Irregular menstruation, unspecified; J44.9 Chronic obstructive pulmonary disease, unspecified; I48.0 Paroxysmal atrial fibrillation; E05.90 Thyrotoxicosis, unspecified without thyrotoxic crisis or storm; F17.210 Nicotine dependence, cigarettes, uncomplicated; E78.00 Pure hypercholesterolemia, unspecified; K21.9 Gastro-esophageal reflux disease without esophagitis; F41.9 Anxiety disorder, unspecified; F32.9 Major depressive disorder, single episode, unspecified; Z85.118 Personal history of other malignant neoplasm of bronchus and lung; Z79.01 Long term (current) use of anticoagulants; Z79.51 Long term (current) use of inhaled steroids; Z79.52 Long term (current) use of systemic steroids; Z79.899 Other long term (current) drug therapy; Z98.1 Arthrodesis status; Z90.2 Acquired absence of lung [part of]; Z92.21 Personal history of antineoplastic chemotherapy; Z92.3 Personal history of irradiation
CPT/HCPCS: 36415; 85007; 85027; 86850; 86900; 86901; 88307; 94664

== ENCOUNTER → 2018-12-18 | Outpatient (CLI) | payer MEDICARE, MEDICAID ==
[~2018-12-18] MED LIST changes: +SOTA80TA PO; -STL80T PO
--- NOTE | 2018-12-18 15:55 | Diagnostic Imaging Report ---
INDICATION: Low back pain. Time of exam 10:44 a.m. TECHNIQUE: Multiple views of the lumbar spine were obtained. FINDINGS: Curvature and alignment of the lumbar spine is normal. Vertebral body heights are maintained. No acute compression fracture is seen. There are degenerative changes with variable disc space narrowing and marginal spurring, greatest at the L4-5 level. No definite spondylolysis or spondylolisthesis is seen. IMPRESSION: Lumbar spondylosis. No acute bony abnormality is detected. Dictated by: Dictated on workstation # [id number]
--- NOTE | 2018-12-18 17:33 | Diagnostic Imaging Report ---
INDICATION: Right knee pain. TIME OF EXAM: 10:40 AM FINDINGS: Previous right knee showed normal alignment. Joint spaces are well maintained. Articular surfaces are smooth. No fracture, dislocation or effusion is seen. IMPRESSION: No acute bony abnormality is detected. Dictated by: Dictated on workstation # [id number]
== END ==
LOC: RAD 10:12
PROVIDERS: ATTEND Student in an Organized Health Care Education/Training Program
DX: M47.26 Other spondylosis with radiculopathy, lumbar region (principal); M25.561 Pain in right knee
CPT/HCPCS: 72110; 73562

== ENCOUNTER → 2018-12-26 | Outpatient (CLI) | payer MEDICARE, MEDICAID ==
[~2018-12-26] MED LIST changes: -SOTA80TA PO; +STL80T PO
[2018-12-26 12:32] LABS: BUN/CREATININE RATIO 19; CREATININE SERUM 0.75 MG/DL (0.60-1.30); GFR ESTIMATED > 60
--- NOTE | 2018-12-26 13:34 | Diagnostic Imaging Report ---
PROCEDURE: CT chest with contrast only. TECHNIQUE: Multiple contiguous axial images were obtained through the chest after administration of intravenous contrast. Auto Exposure Controls were utilized during the CT exam to meet ALARA standards for radiation dose reduction. INDICATION: Lung cancer. FINDINGS: Patient has bilateral breast implants. There is some infiltrate present in the superior segment of the right lower lobe. There is some right hilar scarring. There are emphysematous changes in the lungs. There are no effusions or pneumothoraces. There are no masses. IMPRESSION: Right hilar scarring. There is increased density in the superior segment of the right lower lobe that could be infiltrate versus fibrosis from radiation therapy. Clinical correlation recommended. Dictated by: Dictated on workstation # [id number]
== END ==
LOC: RAD 12:01
PROVIDERS: ATTEND Nurse Practitioner Family
DX: J44.9 Chronic obstructive pulmonary disease, unspecified (principal); J30.9 Allergic rhinitis, unspecified; J98.4 Other disorders of lung; R91.1 Solitary pulmonary nodule; Z72.0 Tobacco use; Z98.82 Breast implant status
CPT/HCPCS: 36415; 71260; 82565; 84520

== ENCOUNTER → 2019-02-04 | Outpatient (CLI) | payer MEDICARE, MEDICAID ==
--- NOTE | 2019-02-04 13:43 | Diagnostic Imaging Report ---
EXAMINATION: Pelvis and bilateral hips at 01:12 p.m. INDICATION: Low back pain and bilateral leg pain. FINDINGS: A single AP view of the pelvis and AP and lateral views of both hips were obtained. There is no fracture, dislocation, or acute bony abnormality evident. There is mild degenerative disease of the hip and sacroiliac joints. The degenerative changes have not progressed since the prior CT abdomen/pelvis exam of 07/07/2018. The soft tissues are unremarkable. IMPRESSION: 1. There is no evidence for an acute bony abnormality. 2. If clinical concern regarding an underlying abnormality persists, then MRI will be recommended for further study. Dictated by: Dictated on workstation # [id number]
== END ==
LOC: LAB 12:59
PROVIDERS: ATTEND Student in an Organized Health Care Education/Training Program
DX: M25.551 Pain in right hip (principal); M25.552 Pain in left hip; M54.5 Low back pain; M79.604 Pain in right leg; M79.605 Pain in left leg
CPT/HCPCS: 73523

== ENCOUNTER → 2019-02-18 | Outpatient (CLI) | payer MEDICARE, MEDICAID | END | disposition home or self-care (01) | LOC: PREOP 05:39 | PROVIDERS: ATTEND Internal Medicine Critical Care Medicine | DX: Z01.818 Encounter for other preprocedural examination (principal) ==

== ENCOUNTER 2019-02-19 06:55 | Day surgery (SDC) | payer MEDICARE, MEDICAID ==
[~2019-02-19] VITALS: Ht 165.1 cm; Wt 81.2 kg
[~2019-02-19 06:55] MED LIST changes: +NS IV 500 ML 500 ML ONE
[2019-02-19] MEDS ORDERED: LIDOCAINE JELLY 2% 6 ML SYRINGE TOP ONE (06:56)
[2019-02-19] MEDS ORDERED: LIDOCAINE PF 1% 2 ML VIAL IJ ONE (06:56)
[2019-02-19] MEDS ORDERED: LIDOCAINE PF 2% 5 ML (XYLOCAINE) VIAL INJ ONE (06:56)
[2019-02-19 07:17] VITALS: BP 106/73
[2019-02-19] MEDS ORDERED: NS IV 500 ML 500 ML IV PRN (07:21)
[2019-02-19] MEDS ORDERED: fentaNYL INJECTION 100 MCG/2 ML AMP IVP ONE (07:30)
[2019-02-19] MEDS ORDERED: MIDAZOLAM 2 MG/2 ML (VERSED) VIAL IVP ONE (07:30)
[2019-02-19] MEDS ORDERED: MIDAZOLAM 2 MG/2 ML (VERSED) VIAL ONE ×4 (07:33)
[2019-02-19] MEDS ORDERED: fentaNYL INJECTION 100 MCG/2 ML AMP ONE ×2 (07:33)
[2019-02-19 08:30] VITALS: BP 98/54
--- NOTE | 2019-02-19 09:02 | Diagnostic Imaging Report ---
EXAM: CHEST 1 VIEW, AP/PA ONLY INDICATION: Post bronchoscopy. COMPARISON: CT chest with IV contrast 02/16/2019. FINDINGS: Stable postoperative changes in the right hilum. No dense consolidation. No pleural effusion or pneumothorax. Normal heart size and central pulmonary vascularity. IMPRESSION: Stable postoperative changes in the right lung. No acute cardiopulmonary findings. Dictated by: Dictated on workstation # [id number]
[2019-02-19 09:05] VITALS: BP 117/47
[2019-02-19 09:30] VITALS: BP 117/47
[2019-02-19 11:25] LABS: BODY FLUID APPEARENCE CLOUDY; BODY FLUID SOURCE BRONCH WASH
[2019-02-19 11:26] LABS: BF OTHER CELLS 26 %; BODY FLUID COLOR PALE RED
--- NOTE | 2019-03-11 08:44 | Pulmonary Procedures ---
Pulmonary Procedures Date of Procedure Date of Service: Feb 19, 2019 (late note for 02/19/19) Bronch Bronchoscopy with bilateral bronchial washes. Preop DX PNA Postop DX: same Complications: none After informed consent obtained and formal time out pt was sedated using Fentanyl and Versed. Bronchoscope was advanced through the nare and vocal cords. 1% lidocaine was used to anesthetize vocal cords, epiglottis, aleksandra, and left/right main stem bronchus. An anatomical tour was undertaken down to the segmental bronchi bilaterally. No endobronchial lesions noted.bilateral bronchial washes were obtained. Pt tolerated procedure well. No complications noted. Stat CXR is pending. ANDIE RICHARDS DO Mar 11, 2019 08:44
== END 2019-02-19 09:36 | disposition home or self-care (01) ==
LOC: ENDO 06:55
PROVIDERS: ATTEND Internal Medicine Critical Care Medicine
DX: R91.1 Solitary pulmonary nodule (principal); J18.9 Pneumonia, unspecified organism; J44.0 Chronic obstructive pulmonary disease with (acute) lower respiratory infection; J45.909 Unspecified asthma, uncomplicated; R06.09 Other forms of dyspnea; I48.91 Unspecified atrial fibrillation; Z85.118 Personal history of other malignant neoplasm of bronchus and lung; Z72.0 Tobacco use; Z79.01 Long term (current) use of anticoagulants; Z79.899 Other long term (current) drug therapy
CPT/HCPCS: 71045; 87015; 87070; 87077; 87101; 87116; 87185; 87205; 87206; 88112; 88305; 88312; 89051; 94640

== ENCOUNTER → 2019-04-08 | Outpatient (CLI) | payer MEDICARE, MEDICAID ==
[~2019-04-08] MED LIST changes: -NS IV 500 ML 500 ML ONE
[2019-04-08 14:13] LABS: BASOPHILS % (AUTO) 1 % (0-10); EOSINOPHILS # (AUTO) 0.1 10^3/uL (0.0-0.3); EOSINOPHILS % (AUTO) 2 % (0-10); HEMATOCRIT 42 % (35-52); HEMOGLOBIN 13.6 G/DL (11.5-16.0); LYMPHOCYTES # (AUTO) 2.2 X 10^3 (1.0-4.0); LYMPHOCYTES % (AUTO) 28 % (12-44); MEAN CORPUSCULAR HEMOGLOBIN 31 PG (25-34); MEAN CORPUSCULAR HGB CONC 33 G/DL (32-36); MEAN CORPUSCULAR VOLUME 94 FL (80-99); MEAN PLATELET VOLUME 10.3 FL (7.4-10.4); MONOCYTES # (AUTO) 0.8 X 10^3 (0.0-1.0); MONOCYTES % (AUTO) 10 % (0-12); NEUTROPHILS # (AUTO) 4.6 X 10^3 (1.8-7.8); NEUTROPHILS % (AUTO) 60 % (42-75); PLATELET COUNT 262 10^3/uL (130-400); RED CELL DISTRIBUTION WIDTH 16.7 % (10.0-14.5); WHITE BLOOD COUNT 7.8 10^3/uL (4.3-11.0)
[2019-04-08 14:35] LABS: ALANINE AMINOTRANSFERASE 21 U/L (0-55); ALBUMIN 4.3 GM/DL (3.2-4.5); ALKALINE PHOSPHATASE 76 U/L (40-136); BILIRUBIN,TOTAL 0.4 MG/DL (0.1-1.0); BUN/CREATININE RATIO 16; CALCIUM 9.7 MG/DL (8.5-10.1); CARBON DIOXIDE 24 MMOL/L (21-32); CHLORIDE 105 MMOL/L (98-107); CHOLESTEROL 154 MG/DL (< 200); CREATININE SERUM 0.68 MG/DL (0.60-1.30); GFR ESTIMATED > 60; GLUCOSE 88 MG/DL (70-105); HDL CHOLESTEROL 60 MG/DL (40-60); POTASSIUM 3.6 MMOL/L (3.6-5.0); SODIUM 139 MMOL/L (135-145); TOTAL PROTEIN 7.7 GM/DL (6.4-8.2); TRIGLYCERIDES 52 MG/DL (<150); VLDL CHOLESTEROL 10 MG/DL (5-40)
[2019-04-08 14:55] LABS: FREE T4 (FREE THYROXINE) 1.14 NG/DL (0.70-1.48)
[2019-04-10 15:15] LABS: AMPHETAMINE SCREEN, URINE NEGATIVE (NEGATIVE); BARBITURATE SCREEN URINE NEGATIVE (NEGATIVE); BENZODIAZEPINES SCREEN URINE POSITIVE (NEGATIVE); CANNABINOID SCREEN, URINE NEGATIVE (NEGATIVE); COCAINE SCREEN URINE NEGATIVE (NEGATIVE); METHADONE STAT NEGATIVE (NEGATIVE); METHAMPHETAMINE SCREEN URINE S NEGATIVE (NEGATIVE); OPIATE SCREEN URINE POSITIVE (NEGATIVE); OXYCODONE STAT NEGATIVE (NEGATIVE); PROPOXYPHENE STAT NEGATIVE (NEGATIVE); TRICYCLIC ANTIDEPRESSANTS SCRE NEGATIVE (NEGATIVE)
== END ==
LOC: LAB 13:37
PROVIDERS: ATTEND Student in an Organized Health Care Education/Training Program
DX: E78.00 Pure hypercholesterolemia, unspecified (principal); F41.1 Generalized anxiety disorder; M54.16 Radiculopathy, lumbar region; R53.83 Other fatigue; R94.6 Abnormal results of thyroid function studies
CPT/HCPCS: 36415; 80053; 80061; 82607; 84439; 84443; 84480; 84481; 85025

== ENCOUNTER → 2019-04-13 | Outpatient (CLI) | payer MEDICARE, MEDICAID ==
--- NOTE | 2019-04-13 10:32 | Diagnostic Imaging Report ---
PROCEDURE: MRI right joint lower extremity without contrast. TECHNIQUE: Multiplanar, multisequence non contrast-enhanced MRI of the right lower extremity was accomplished. INDICATION: Right hip and groin pain. History of lung cancer in remission. No known injury. COMPARISON: Radiographs from 02/04/2019. FINDINGS: There is serpiginous subcortical signal in the superior femoral heads bilaterally, consistent with osteonecrosis. This involves approximately 50% of the articular surface superiorly in the right femoral head. No articular surface collapse is seen bilaterally. There are moderate degenerative changes in the bilateral hip joints. No significant joint effusion is seen. The gluteus medius tendon demonstrates tendinosis with tearing of the anterior fibers. The gluteus minimus tendon also demonstrates mild tendinosis with high-grade partial tearing. The left gluteus medius and minimus tendons demonstrate tendinosis with possible partial tearing although suboptimally evaluated in this [id number]. There is tendinosis of the hamstring tendons bilaterally at the origin, with mild ischial bursitis bilaterally. There is edema in the quadratus femoris musculature bilaterally, consistent with ischiofemoral impingement. No soft tissue fluid collections or masses are seen. The acetabular labrum is not well evaluated in the absence of intra-articular contrast although there is likely degeneration of the superior labrum. No large para-labral cysts are seen. There are degenerative changes in the bilateral sacroiliac joints. There appears to be transitional anatomy at the lumbosacral junction. IMPRESSION: 1. Osteonecrosis of the bilateral femoral heads without articular surface collapse seen. 2. Tendinosis and partial tearing of the bilateral gluteus medius and minimus tendons, right greater than left. 3. Edema in the quadratus femoris bilaterally, consistent with ischiofemoral impingement. 4. Tendinosis of the bilateral hamstring tendons with bilateral ischial bursitis. Dictated by: Dictated on workstation # [id number]
== END ==
LOC: RAD 08:53
PROVIDERS: ATTEND Student in an Organized Health Care Education/Training Program
DX: M87.851 Other osteonecrosis, right femur (principal); M70.71 Other bursitis of hip, right hip
CPT/HCPCS: 73721

== ENCOUNTER → 2019-06-02 | Outpatient (CLI) | payer MEDICARE, MEDICAID ==
--- NOTE | 2019-06-02 13:30 | Diagnostic Imaging Report ---
INDICATION: Right-sided chest pain and cough. TIME OF EXAM: 11:52 a.m. COMPARISON: Correlation is made with prior chest from 02/19/2019. FINDINGS: The heart size is stable. There are surgical clips in the upper right chest. Significant bullous disease in the right upper lobe is similar to prior exam. No infiltrate is seen. There is no effusion. No definite pneumothorax is identified. IMPRESSION: Stable chest since prior exam. No acute feature is detected. Dictated by: Dictated on workstation # [id number]
== END ==
LOC: RAD 11:37
PROVIDERS: ATTEND Internal Medicine Critical Care Medicine
DX: R05 Cough (principal); R10.9 Unspecified abdominal pain; R06.00 Dyspnea, unspecified
CPT/HCPCS: 71046

== ENCOUNTER → 2019-06-22 | Outpatient (CLI) | payer MEDICARE, MEDICAID ==
[~2019-06-22] MED LIST changes: +CATHETER FLUSH 10 ML SYR IV PRN
--- NOTE | 2019-06-22 13:18 | Diagnostic Imaging Report ---
RADIOPHARMACEUTICAL: 4.79 mCi Tc-99m Choletec IV. INDICATION: Abdominal pain, nausea. TECHNIQUE: Anterior dynamic imaging for 1 hour. Additional 60 minute imaging was performed after patient ingested an 8 ounce can of Ensure by mouth. FINDINGS: There is homogenous uptake throughout the liver. The gallbladder is visualized at 5 minutes and small bowel at 30 minutes. After ingesting an 8 ounce can of Ensure, there is normal contraction of the gallbladder with normal calculated GBEF at 65%. IMPRESSION: 1. Normal HIDA Scan without evidence of cystic or common duct obstruction. 2. Normal GBEF of 65%. Dictated by: Dictated on workstation # [id number]
== END ==
LOC: CARD 10:00
PROVIDERS: ATTEND Internal Medicine Gastroenterology
DX: R10.9 Unspecified abdominal pain (principal); R11.0 Nausea
CPT/HCPCS: 78227

== ENCOUNTER 2019-06-28 14:34 | Emergency (ER) | payer MEDICARE, MEDICAID ==
[~2019-06-28] VITALS: Ht 165 cm; Wt 72.7 kg
[~2019-06-28 14:34] MED LIST changes: -CATHETER FLUSH 10 ML SYR IV PRN
[2019-06-28 15:10] LABS: BASOPHILS % (AUTO) 0 % (0-10); EOSINOPHILS # (AUTO) 0.1 10^3/uL (0.0-0.3); EOSINOPHILS % (AUTO) 1 % (0-10); HEMATOCRIT 42 % (35-52); HEMOGLOBIN 14.1 G/DL (11.5-16.0); LYMPHOCYTES % (AUTO) 11 % (12-44); MEAN CORPUSCULAR HEMOGLOBIN 32 PG (25-34); MEAN CORPUSCULAR HGB CONC 33 G/DL (32-36); MEAN CORPUSCULAR VOLUME 95 FL (80-99); MONOCYTES # (AUTO) 0.4 X 10^3 (0.0-1.0); MONOCYTES % (AUTO) 4 % (0-12); NEUTROPHILS # (AUTO) 7.6 X 10^3 (1.8-7.8); NEUTROPHILS % (AUTO) 84 % (42-75); PLATELET COUNT 276 10^3/uL (130-400); RED CELL DISTRIBUTION WIDTH 15.3 % (10.0-14.5)
[2019-06-28] MEDS ORDERED: ASPIRIN 81 MG CHEW (CHILDREN'S ASA) PO ONE (15:15)
--- NOTE | 2019-06-28 15:18 | Diagnostic Imaging Report ---
INDICATION: Nausea, vomiting, and shortness of breath. COMPARISON: 06/02/2019. FINDINGS: Single view of the chest demonstrates hyperinflation compatible with COPD. Heart is prominent but stable. There is no pneumothorax or effusion. Stable postoperative changes are seen in the right hilum. Osseous structures are stable. IMPRESSION: No acute cardiopulmonary findings. No interval change. Dictated by: Dictated on workstation # [id number]
[2019-06-28 15:19] LABS: PROTHROMBIN TIME PATIENT 13.6 SEC (12.2-14.7)
[2019-06-28 15:22] LABS: ALANINE AMINOTRANSFERASE 17 U/L (0-55); ALKALINE PHOSPHATASE 74 U/L (40-136); BILIRUBIN,TOTAL 0.4 MG/DL (0.1-1.0); BUN/CREATININE RATIO 29; CARBON DIOXIDE 18 MMOL/L (21-32); CHLORIDE 106 MMOL/L (98-107); CREATININE SERUM 0.87 MG/DL (0.60-1.30); GFR ESTIMATED > 60; GLUCOSE 112 MG/DL (70-105); MAGNESIUM 1.8 MG/DL (1.6-2.4); POTASSIUM 3.5 MMOL/L (3.6-5.0); SODIUM 139 MMOL/L (135-145); TOTAL PROTEIN 7.3 GM/DL (6.4-8.2)
--- NOTE | 2019-06-28 16:52 | ED Cardiac General ---
History of Present Illness General Chief Complaint: Cardiac/General Problems Stated Complaint: CHEST PAIN,COUGH,VOMITTING Nursing Triage Note: Patient reports SOA, palpitations, N/V. Source: patient Exam Limitations: no limitations History of Present Illness Date Seen by Provider: Jun 28, 2019 Time Seen by Provider: 16:51 Initial Comments ER with palpitations tachycardia chest pain cough shortness of breath vomiting nausea diarrhea fatigue ongoing for several weeks. 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 ASA po AIRCRAFT LOADMASTER SUPERINTENDENT: No Associated Systoms: No Fever/Chills; Shortness of Air Allergies and Home Medications Allergies Coded Allergies: No Known Drug Allergies (Unverified , 12/04/18) Home Medications Acetylcysteine 600 Mg Capsule, 600 MG PO DAILY, (Reported) Albuterol Sulfate 18 Gm Hfa.aer.ad, 2 PUFF INH Q4H PRN for SHORTNESS OF BREATH, (Reported) Albuterol Sulfate 2.5 Mg/0.5 Ml Vial.neb, 2.5 MG INH Q4H PRN for SHORTNESS OF BREATH, (Reported) Apixaban 5 Mg Tab.ds.pk, 2.5 MG PO BID, (Reported) Buspirone HCl 5 Mg Tablet, 5 MG PO BID, (Reported) Cholecalciferol (Vitamin D3) 1,000 Unit Capsule, 1,000 UNIT PO DAILY, (Reported) Dexlansoprazole 60 Mg Cap.dr.bp, 60 MG PO DAILY, (Reported) Diltiazem HCl 240 Mg Cap.er.24h, 240 MG PO DAILY, (Reported) Estradiol 1 Mg Tablet, 1 MG PO DAILY, (Reported) Fexofenadine HCl 180 Mg Tablet, 180 MG PO DAILY, (Reported) Fluoxetine HCl 20 Mg Capsule, 20 MG PO DAILY, (Reported) Fluticasone Propionate 16 Gm [place].susp, 2 SPRAY NS DAILY, (Reported) Fluticasone/Umeclidin/Vilanter 1 Each Blst.w.dev, 1 EACH IH DAILY, (Reported) Gabapentin 300 Mg Capsule, 300 MG PO DAILY, (Reported) Hydrocodone/Acetaminophen 1 Each Tablet, 1 EACH PO Q6H PRN for PAIN-MILD TO MODERATE, (Reported) Mepolizumab (Recombinant) 100 Mg Vial, 100 MG SQ MONTHLY, (Reported) Montelukast Sodium 10 Mg Tablet, 10 MG PO HS, (Reported) Nicotine 1 Each Patch.td24, 21 MG TD DAILY, (Reported) Ondansetron 4 Mg Tab.rapdis, 4 MG PO Q4H PRN for NAUSEA/VOMITING, (Reported) Pravastatin Sodium 40 Mg Tablet, 40 MG PO HS, (Reported) Roflumilast 500 Mcg Tablet, 500 MCG PO DAILY, (Reported) Tizanidine HCl 4 Mg Capsule, 4 MG PO DAILY PRN for PAIN-MODERATE, (Reported) Patient Home Medication List Home Medication List Reviewed: Yes Review of Systems Review of Systems Constitutional: see HPI EENTM: No Symptoms Reported Respiratory: No Symptoms Reported Cardiovascular: See HPI, Chest Pain Gastrointestinal: No Symptoms Reported, Nausea Genitourinary: No Symptoms Reported Musculoskeletal: no symptoms reported Skin: no symptoms reported Psychiatric/Neurological: No Symptoms Reported Endocrine: No Symptoms Reported Hematologic/Lymphatic: No Symptoms Reported Past Dchfapq-Fcpslm-Gxfmhw Hx Patient Social History Alcohol Use: Occasionally Uses Number of Drinks Today: BB Alcohol Beverage of Choice: Beer, [place] Recreational Drug Use: No Smoking Status: Current Everyday Smoker Type Used: Cigarettes 2nd Hand Smoke Exposure: Yes Recent Foreign Travel: No Contact w/Someone Who Travel: No Recent Infectious Disease Expo: No Recent Hopitalizations: No Immunizations Up To Date Tetanus Booster (TDap): Unknown PED Vaccines UTD: No Date of Pneumonia Vaccine: Oct 24, 2013 Date of Influenza Vaccine: Jun 02, 2018 Seasonal Allergies Seasonal Allergies: Yes Past Medical History Surgeries: Yes (BUNIONECTOMY, NECK FUSION, BREAST IMPLANTS) Lobectomy, Tubal Ligation Respiratory: Yes ( HX OF LUNG CA, O2 2L NC) Asthma, COPD Currently Using CPAP: No Currently Using BIPAP: No Cardiac: Yes (TACHYCARDIA) Atrial Fibrillation, High Cholesterol Neurological: No 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 Disorders: Yes 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 Sexually Transmitted Disease: No HIV/AIDS: No Genitourinary: No Gastrointestinal: Yes Gastroesophageal Reflux, Irritable Bowel Musculoskeletal: Yes (joint pain) Arthritis, Chronic Back Pain Endocrine: No HEENT: Yes (READING GLASSES) Loss of Vision: Bilateral Hearing Impairment: Denies Cancer: Yes Lung What Type of Treatment Did You: Chemotherapy, Radiation, Surgical Intervention Psychosocial: Yes Anxiety, Depression Integumentary: No Blood Disorders: No Adverse Reaction/Blood Tranf: No (N/A) Family Medical History FH: lung cancer 19 FATHER 19 MOTHER No Pertinent Family Hx Physical Exam Vital Signs Vital Signs - First Documented 06/28/19 14:43 Temp 37.3 Pulse 130 Resp 20 B/P (MAP) 154/43 (80) Pulse Ox 95 Capillary Refill : Less Than 3 Seconds Height, Weight, BMI Height: 5'5.00" Weight: 179lbs. 2.0oz. 81.483130hi; 26.00 BMI Method:Stated General Appearance: No Apparent Distress, WD/WN HEENT: PERRL/EOMI, TMs Normal Respiratory: No Accessory Muscle Use, No Respiratory Distress Cardiovascular: Normal Peripheral Pulses, Tachycardia Gastrointestinal: Normal Bowel Sounds, Non Tender, Soft Extremity: Normal Capillary Refill, Normal Inspection Neurologic/Psychiatric: Alert, Oriented x3 Skin: Normal Color, Warm/Dry Progress/Results/Core Measures Results/Orders Lab Results Laboratory Tests Test 06/28/19 14:45 Range/Units White Blood Count 9.0 4.3-11.0 10^3/uL Red Blood Count 4.45 4.35-5.85 10^6/uL Hemoglobin 14.1 11.5-16.0 G/DL Hematocrit 42 35-52 % Mean Corpuscular Volume 95 80-99 FL Mean Corpuscular Hemoglobin 32 25-34 PG Mean Corpuscular Hemoglobin Concent 33 32-36 G/DL Red Cell Distribution Width 15.3 H 10.0-14.5 % Platelet Count 276 130-400 10^3/uL Mean Platelet Volume 10.0 7.4-10.4 FL Neutrophils (%) (Auto) 84 H 42-75 % Lymphocytes (%) (Auto) 11 L 12-44 % Monocytes (%) (Auto) 4 0-12 % Eosinophils (%) (Auto) 1 0-10 % Basophils (%) (Auto) 0 0-10 % Neutrophils # (Auto) 7.6 1.8-7.8 X 10^3 Lymphocytes # (Auto) 1.0 1.0-4.0 X 10^3 Monocytes # (Auto) 0.4 0.0-1.0 X 10^3 Eosinophils # (Auto) 0.1 0.0-0.3 10^3/uL Basophils # (Auto) 0.0 0.0-0.1 10^3/uL Prothrombin Time 13.6 12.2-14.7 SEC INR Comment 1.0 0.8-1.4 Activated Partial Thromboplast Time 34 24-35 SEC Sodium Level 139 135-145 MMOL/L Potassium Level 3.5 L 3.6-5.0 MMOL/L Chloride Level 106 98-107 MMOL/L Carbon Dioxide Level 18 L 21-32 MMOL/L Anion Gap 15 H 5-14 MMOL/L Blood Urea Nitrogen 25 H 7-18 MG/DL Creatinine 0.87 0.60-1.30 MG/DL Estimat Glomerular Filtration Rate > 60 BUN/Creatinine Ratio 29 Glucose Level 112 H 70-105 MG/DL Calcium Level 9.0 8.5-10.1 MG/DL Corrected Calcium 9.0 8.5-10.1 MG/DL Magnesium Level 1.8 1.6-2.4 MG/DL Total Bilirubin 0.4 0.1-1.0 MG/DL Aspartate Amino Transf (AST/SGOT) 15 5-34 U/L Alanine Aminotransferase (ALT/SGPT) 17 0-55 U/L Alkaline Phosphatase 74 40-136 U/L Myoglobin 36.9 10.0-92.0 NG/ML Troponin I < 0.028 <0.028 NG/ML B-Type Natriuretic Peptide 57.5 <100.0 PG/ML Total Protein 7.3 6.4-8.2 GM/DL Albumin 4.0 3.2-4.5 GM/DL Lipase 11 8-78 U/L My Orders Orders - VIVIAN BARRERA CANAL STRUCTURE OPERATOR Cbc With Automated Diff (06/28/19 15:04) Magnesium (06/28/19 15:04) Chest 1 View, Ap/Pa Only (06/28/19 15:04) Ekg Tracing (06/28/19 15:04) Cardiac Profile 1 (06/28/19 15:04) Comprehensive Metabolic Panel (06/28/19 15:04) Myoglobin Serum (06/28/19 15:04) Protime With Inr (06/28/19 15:04) Partial Thromboplastin Time (06/28/19 15:04) O2 (06/28/19 15:04) Monitor-Rhythm Ecg Trace Only (06/28/19 15:04) Lipid Panel (06/29/19 06:00) Ed Iv/Invasive Line Start (06/28/19 15:04) BNP (06/28/19 15:04) Aspirin Chewable Tablet (Baby Aspirin Ch (06/28/19 15:15) Ns Iv 1000 Ml (Sodium Chloride 0.9%) (06/28/19 17:00) Ct Angio Chest/Abd W (06/28/19 16:49) Lipase (06/28/19 16:49) Iohexol Injection (Omnipaque 350 Mg/Ml 1 (06/28/19 17:00) Received Contrast (Hold Metformin- Contr (06/28/19 17:00) Ns (Ivpb) (Sodium Chloride 0.9% Ivpb Bag (06/28/19 17:00) Medications Given in ED Current Medications Medications Dose Ordered Sig/Caitlin Route Start Time Stop Time Status Last Admin Dose Admin Aspirin 324 mg ONCE ONCE PO 06/28/19 15:15 06/28/19 15:16 DC 06/28/19 15:34 324 MG Iohexol 100 ml ONCE ONCE IV 06/28/19 17:00 06/28/19 17:01 DC 06/28/19 17:17 100 ML Sodium Chloride 100 ml ONCE ONCE IV 06/28/19 17:00 06/28/19 17:01 DC 06/28/19 17:18 100 ML Vital Signs/I&O 06/28/19 14:43 Temp 37.3 Pulse 130 Resp 20 B/P (MAP) 154/43 (80) Pulse Ox 95 Blood Pressure Mean: 80 POS Departure Impression Primary Impression: COPD (chronic obstructive pulmonary disease) Qualified Codes: J42 - Unspecified chronic bronchitis Disposition: 01 HOME, SELF-CARE Condition: Stable Departure-Patient Inst. Decision time for Depature: 17:49 Referrals: SHELLEY ROSENBERG DO (PCP/Family) Primary Care Physician Patient Instructions: Chest Pain That Is Not Caused by the Heart (DC) Add. Discharge Instructions: 1. Return to ER for any concerns 2. Follow-up with your doctor next week 3. All discharge instructions reviewed with patient and/or family. Voiced understanding. Scripts Prednisone (Prednisone) 20 Mg Tab 40 MG PO DAILY, #6 TAB 0 Refills Prov: VIVIAN BARRERA APRN 06/28/19 Azithromycin (Azithromycin) 250 Mg Tablet 250 MG PO UD, #6 TAB TAKE 2 TABLETS ON DAY ONE THEN TAKE 1 TABLET DAILY FOR FOUR MORE DAYS Prov: VIVIAN BARRERA APRN 06/28/19 VIVIAN BARRERA APRN Jun 28, 2019 16:52 POS
[2019-06-28] MEDS ORDERED: HOLD METFORMIN - RECEIVED CONTRAST 20 ML VIAL IV SCH (17:00)
[2019-06-28] MEDS ORDERED: NS 100 ML (IVPB) BAG IV ONE (17:00)
[2019-06-28] MEDS ORDERED: IOHEXOL 350 MG/ML 100 ML (OMNIPAQUE 350) VIAL IV ONE (17:00)
[2019-06-28] MEDS ORDERED: NS IV 1000 ML 1,000 ML IV SCH (17:00)
--- NOTE | 2019-06-28 17:30 | Diagnostic Imaging Report ---
EXAMINATION: CT angiography of the chest and abdomen. TECHNIQUE: After intravenous administration of contrast, thin section axial CT angiography of the abdomen and chest were obtained. 3D MIP reformats were provided. All CT scans use one or more of the following dose optimizing techniques: automated exposure control, MA and/or KvP adjustment based on patient size and exam type or iterative reconstruction. HISTORY: Chest pain and cough. COMPARISON: 02/16/2019. FINDINGS: There is no intramural hematoma, dissection or penetrating atherosclerotic ulcer. The thoracic aorta and abdominal aorta are normal in caliber. There is no pulmonary embolism. The lungs are severely emphysematous. There are postsurgical changes of right middle lobectomy. Architectural distortion, fibrosis and traction bronchiectasis in the paramediastinal region on the right likely represents prior radiation. The degree of soft tissue in the right hilum is unchanged from prior exam. No suspicious nodules are seen. No pleural effusion or pneumothorax. Heart size is normal. No pericardial effusion. There is no axillary or supraclavicular lymphadenopathy. There is no mediastinal lymphadenopathy. The liver is normal without focal lesion. There is no biliary ductal dilation. Gallbladder is normal. Pancreas is normal. Spleen is normal. Adrenal glands are normal. Simple cysts are seen in the kidneys. They are otherwise normal without suspicious lesion. There is no hydronephrosis. Visualized bowel is normal in caliber without obstruction or inflammation. No free fluid or air. No abdominal lymphadenopathy. There are no suspicious osseus lesions. IMPRESSION: 1. No acute abnormality in the chest or abdomen. No evidence for acute aortic syndrome or pulmonary embolism. 2. Severe emphysema. Dictated by: Dictated on workstation # [id number]
[2019-06-28] MEDS ORDERED: AZIT250T12 PO (17:50)
[2019-06-28] MEDS ORDERED: PRD20T PO (17:50)
[2019-06-28 18:08] VITALS: BP 97/65
== END 2019-06-28 18:11 | disposition home or self-care (01) ==
LOC: EDUNIT# 14:34 → ER 14:35
DX: J44.9 Chronic obstructive pulmonary disease, unspecified (principal); I48.91 Unspecified atrial fibrillation; E78.00 Pure hypercholesterolemia, unspecified; F41.9 Anxiety disorder, unspecified; F32.9 Major depressive disorder, single episode, unspecified; K21.9 Gastro-esophageal reflux disease without esophagitis; K58.9 Irritable bowel syndrome, unspecified; F17.210 Nicotine dependence, cigarettes, uncomplicated; Z85.118 Personal history of other malignant neoplasm of bronchus and lung; Z80.1 Family history of malignant neoplasm of trachea, bronchus and lung; Z99.81 Dependence on supplemental oxygen; Z87.09 Personal history of other diseases of the respiratory system; Z98.51 Tubal ligation status; Z79.01 Long term (current) use of anticoagulants; Z79.52 Long term (current) use of systemic steroids; Z79.51 Long term (current) use of inhaled steroids
CPT/HCPCS: 36415; 71045; 71275; 74175; 80053; 83690; 83735; 83874; 83880; 84484; 85025; 85610; 85730; 93005; 93041

== ENCOUNTER → 2019-09-22 | Outpatient (CLI) | payer MEDICARE, MEDICAID ==
[~2019-09-22] MED LIST changes: -DIAZ5TAB3 PO; +DIAZ5TAB49 PO; -FLUO10CA19 PO; +FLUO10CA30 PO
--- NOTE | 2019-09-22 14:25 | Diagnostic Imaging Report ---
PROCEDURE: CT sinuses without contrast TECHNIQUE: Multiple contiguous axial images were obtained through the sinuses without the use of intravenous contrast. Coronal and sagittal reformations were then performed. Auto Exposure Controls were utilized during the CT exam to meet ALARA standards for radiation dose reduction. INDICATION: Chronic sinusitis. FINDINGS: The previous PET/CT exam of 09/03/2017 noted mucosal thickening and fluid involving the left sphenoid sinus. On this study, however, the left sphenoid sinus is now clear and well aerated. The other paranasal sinuses are also clear. There is no mucosal thickening or fluid layering to suggest active sinusitis. The ostiomeatal complexes are patent. The nasal septum is deviated to the left, and there is a bony projection in the midportion of the septum directed to the left. The bone windows show no sign of a fracture or of a destructive lesion. The orbits are symmetrical and within normal limits. The intracranial contents where visualized are unremarkable. IMPRESSION: The mucosal thickening and fluid within the left sphenoid sinus seen previously have resolved. There is no evidence for active sinus disease at this time. Dictated by: Dictated on workstation # [id number]
== END ==
LOC: RAD 13:55
PROVIDERS: ATTEND Otolaryngology Otolaryngology/Facial Plastic Surgery
DX: J32.9 Chronic sinusitis, unspecified (principal)
CPT/HCPCS: 70486

== ENCOUNTER 2019-10-10 11:28 | Emergency (ER) | payer MEDICARE, MEDICAID ==
[~2019-10-10] VITALS: Ht 165 cm; Wt 71.3 kg
[2019-10-10] MEDS ORDERED: NS IV 1000 ML 1,000 ML IV SCH (11:52)
[2019-10-10] MEDS ORDERED: RT-ALBUTEROL/IPRATROPIUM 3 ML (DUONEB) VIAL ONE (11:56)
[2019-10-10] MEDS ORDERED: RT-ALBUTEROL/IPRATROPIUM 3 ML (DUONEB) VIAL INH ONE (12:00)
[2019-10-10] MEDS ORDERED: methylPREDNISolone 125 MG (Solu-MEDROL) VIAL IVP ONE (12:00)
[2019-10-10 12:08] LABS: BASOPHILS % (AUTO) 0 % (0-10); EOSINOPHILS # (AUTO) 0.2 10^3/uL (0.0-0.3); EOSINOPHILS % (AUTO) 2 % (0-10); HEMATOCRIT 40 % (35-52); LYMPHOCYTES # (AUTO) 2.6 X 10^3 (1.0-4.0); LYMPHOCYTES % (AUTO) 18 % (12-44); MEAN CORPUSCULAR HEMOGLOBIN 32 PG (25-34); MEAN CORPUSCULAR HGB CONC 33 G/DL (32-36); MEAN CORPUSCULAR VOLUME 97 FL (80-99); MEAN PLATELET VOLUME 10.3 FL (7.4-10.4); MONOCYTES # (AUTO) 1.2 X 10^3 (0.0-1.0); MONOCYTES % (AUTO) 8 % (0-12); NEUTROPHILS # (AUTO) 10.3 X 10^3 (1.8-7.8); NEUTROPHILS % (AUTO) 72 % (42-75); PLATELET COUNT 253 10^3/uL (130-400); RED CELL DISTRIBUTION WIDTH 15.1 % (10.0-14.5); WHITE BLOOD COUNT 14.3 10^3/uL (4.3-11.0)
[2019-10-10 12:12] LABS: BILIRUBIN,URINE NEGATIVE (NEGATIVE); CLARITY,URINE SL CLOUDY; COLOR,URINE YELLOW; GLUCOSE, URINE (UA) NEGATIVE (NEGATIVE); KETONES,URINE NEGATIVE (NEGATIVE); LEUKOCYTE ESTERASE ,URINE NEGATIVE (NEGATIVE); NITRITE,URINE NEGATIVE (NEGATIVE); PROTEIN,URINE NEGATIVE (NEGATIVE)
--- NOTE | 2019-10-10 12:17 | ED Respiratory ---
General Chief Complaint: Respiratory Problems Stated Complaint: SOA / COUGH / CHEST PRESSURE Nursing Triage Note: PT AMB TO RM 10 WITH COMPLAINT OF SOA AND COUGHING UP BLOOD. WAS DIAGNOSED ON SATURDAY WITH PNEUMONIA AND STARTED ON ZPAC. HAS BEEN TAKING PREDNISONE SINCE . History of Present Illness Date Seen by Provider: Oct 10, 2019 Time Seen by Provider: 11:40 Initial Comments 59-year-old female reports being diagnosed with pneumonia on her one- year follow-up CT chest for lung cancer. This was completed on 10/08/19. She was started on a Z-Bertrand, yesterday and is using her albuterol inhaler as needed. She last used the inhaler approximately 3 hours ago but states she was so short of air she was unable to inhale very well. She had prednisone at home and started taking 20 mg orally on 10/07/19. She reports increased shortness of air, chest pressure and hemoptysis today. She is continuing to smoke however she has cut back significantly over the last 2 days. She does not wear oxygen at home or CPAP at night. She has not been tested for influenza. She did not obtain an influenza vaccine this year. After ambulation to room 10, her SaO2 on RA is 94% and pulse 104-110. She has a history of A. fib and takes Eliquis daily. Timing/Duration: getting worse Severity: moderate Prior Episodes/Possible Cause: occasional episodes Associated Symptoms: chest pain/soreness, cough; No dizziness, No earache, No facial pain, No fever/chills, No headache, No lightheadedness; muscle aches; No nasal congestion, No nasal drainage; shortness of breath; No sinus infection, No sore throat; wheezing; No other Allergies and Home Medications Allergies Coded Allergies: No Known Drug Allergies (Unverified , 12/04/18) Home Medications Acetylcysteine 600 Mg Capsule, 600 MG PO DAILY, (Reported) Albuterol Sulfate 18 Gm Hfa.aer.ad, 2 PUFF INH Q4H PRN for SHORTNESS OF BREATH, (Reported) Albuterol Sulfate 2.5 Mg/0.5 Ml Vial.neb, 2.5 MG INH Q4H PRN for SHORTNESS OF BREATH, (Reported) Amoxicillin/Potassium Clav 1 Each Tablet, 1 EACH PO BID Prescribed by: JOSÉ LICEA on 10/10/19 1312 Apixaban 5 Mg Tab.ds.pk, 2.5 MG PO BID, (Reported) Azithromycin 250 Mg Tablet, 250 MG PO UD TAKE 2 TABLETS ON DAY ONE THEN TAKE 1 TABLET DAILY FOR FOUR MORE DAYS Prescribed by: VIVIAN BARRERA on 06/28/19 175 Buspirone HCl 5 Mg Tablet, 5 MG PO BID, (Reported) Cholecalciferol (Vitamin D3) 1,000 Unit Capsule, 1,000 UNIT PO DAILY, (Reported) Dexlansoprazole 60 Mg Cap.dr.bp, 60 MG PO DAILY, (Reported) Diltiazem HCl 240 Mg Cap.er.24h, 240 MG PO DAILY, (Reported) Estradiol 1 Mg Tablet, 1 MG PO DAILY, (Reported) Fexofenadine HCl 180 Mg Tablet, 180 MG PO DAILY, (Reported) Fluoxetine HCl 20 Mg Capsule, 20 MG PO DAILY, (Reported) Fluticasone Propionate 16 Gm [place].susp, 2 SPRAY NS DAILY, (Reported) Fluticasone/Umeclidin/Vilanter 1 Each Blst.w.dev, 1 EACH IH DAILY, (Reported) Gabapentin 300 Mg Capsule, 300 MG PO DAILY, (Reported) Hydrocodone/Acetaminophen 1 Each Tablet, 1 EACH PO Q6H PRN for PAIN-MILD TO MODERATE, (Reported) Mepolizumab (Recombinant) 100 Mg Vial, 100 MG SQ MONTHLY, (Reported) Montelukast Sodium 10 Mg Tablet, 10 MG PO HS, (Reported) Nicotine 1 Each Patch.td24, 21 MG TD DAILY, (Reported) Ondansetron 4 Mg Tab.rapdis, 4 MG PO Q4H PRN for NAUSEA/VOMITING, (Reported) Pravastatin Sodium 40 Mg Tablet, 40 MG PO HS, (Reported) Prednisone 20 Mg Tab, 40 MG PO DAILY Prescribed by: VIVIAN BARRERA on 06/28/19 175 Roflumilast 500 Mcg Tablet, 500 MCG PO DAILY, (Reported) Tizanidine HCl 4 Mg Capsule, 4 MG PO DAILY PRN for PAIN-MODERATE, (Reported) Patient Home Medication List Home Medication List Reviewed: Yes Review of Systems Review of Systems Constitutional: no symptoms reported, see HPI Respiratory: see HPI, cough, hemoptysis, phlegm, short of breath Genitourinary: see HPI, dysuria, frequency All Other Systems Reviewed Negative Unless Noted: Yes Past Ozqeeoy-Kydvuw-Vorgwc Hx Past Med/Social Hx: Reviewed Nursing Past Med/Soc Hx Patient Social History Alcohol Use: Occasionally Uses Number of Drinks Today: BB Alcohol Beverage of Choice: Beer, [place] Recreational Drug Use: No Smoking Status: Current Everyday Smoker Type Used: Cigarettes 2nd Hand Smoke Exposure: Yes Recent Foreign Travel: No Contact w/Someone Who Travel: No Recent Infectious Disease Expo: No Recent Hopitalizations: No Immunizations Up To Date Tetanus Booster (TDap): Unknown PED Vaccines UTD: No Date of Pneumonia Vaccine: Oct 24, 2013 Date of Influenza Vaccine: Jun 02, 2018 Seasonal Allergies Seasonal Allergies: Yes Past Medical History Surgeries: Yes (BUNIONECTOMY, NECK FUSION, BREAST IMPLANTS) Lobectomy, Tubal Ligation Respiratory: Yes ( HX OF LUNG CA, O2 2L NC) Asthma, COPD Currently Using CPAP: No Currently Using BIPAP: No Cardiac: Yes (TACHYCARDIA) Atrial Fibrillation, High Cholesterol Neurological: No 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 Sexually Transmitted Disease: No HIV/AIDS: No Genitourinary: No Gastrointestinal: Yes Gastroesophageal Reflux, Irritable Bowel Musculoskeletal: Yes (joint pain) Arthritis, Chronic Back Pain Endocrine: No HEENT: Yes (READING GLASSES) Loss of Vision: Bilateral Hearing Impairment: Denies Cancer: Yes Lung What Type of Treatment Did You: Chemotherapy, Radiation, Surgical Intervention Psychosocial: Yes Anxiety, Depression Integumentary: No Blood Disorders: No Adverse Reaction/Blood Tranf: No (N/A) Family Medical History FH: lung cancer 19 FATHER 19 MOTHER No Pertinent Family Hx Physical Exam Vital Signs - First Documented 10/10/19 11:39 Temp 37.0 Pulse 103 Resp 20 B/P (MAP) 120/60 (80) Pulse Ox 95 O2 Delivery Room Air Capillary Refill : Less Than 3 Seconds Height: 5'5.00" Weight: 179lbs. 2.0oz. 81.664248hw; 26.00 BMI Method:Stated General Appearance: WD/WN, mild distress (SOA) Eyes: Bilateral Eye Normal Inspection, Bilateral Eye PERRL, Bilateral Eye EOMI HEENT: PERRL/EOMI, normal ENT inspection, TMs normal, pharynx normal Neck: non-tender, full range of motion, supple, normal inspection Respiratory: chest non-tender, no respiratory distress, no accessory muscle use, rhonchi, wheezing Cardiovascular: normal peripheral pulses, regular rate, rhythm Extremities: normal range of motion, non-tender, normal inspection, no pedal edema, normal capillary refill Neurologic/Psychiatric: no motor/sensory deficits, alert, normal mood/affect, oriented x 3 Skin: normal color, warm/dry Focused Exam Lactate Level 10/10/19 11:56: Lactic Acid Level 1.47 Lactic Acid Level Laboratory Tests Test 10/10/19 11:56 Lactic Acid Level 1.47 MMOL/L (0.50-2.00) Progress/Results/Core Measures Suspected Sepsis Recent Fever Within 48 Hours: No Infection Criteria Present: None New/Unexplained Altered Menta: No Sepsis Screen: No Definite Risk SIRS Temperature: Pulse: 103 Respiratory Rate: 20 Laboratory Tests 10/10/19 11:56: White Blood Count 14.3H Blood Pressure 120 /60 Mean: 80 10/10/19 11:56: Lactic Acid Level 1.47 Laboratory Tests 10/10/19 11:56: Creatinine 0.66, INR Comment 0.9, Platelet Count 253, Total Bilirubin 0.3 Results/Orders Lab Results Laboratory Tests Test 10/10/19 11:56 Range/Units White Blood Count 14.3 H 4.3-11.0 10^3/uL Red Blood Count 4.07 L 4.35-5.85 10^6/uL Hemoglobin 13.0 11.5-16.0 G/DL Hematocrit 40 35-52 % Mean Corpuscular Volume 97 80-99 FL Mean Corpuscular Hemoglobin 32 25-34 PG Mean Corpuscular Hemoglobin Concent 33 32-36 G/DL Red Cell Distribution Width 15.1 H 10.0-14.5 % Platelet Count 253 130-400 10^3/uL Mean Platelet Volume 10.3 7.4-10.4 FL Neutrophils (%) (Auto) 72 42-75 % Lymphocytes (%) (Auto) 18 12-44 % Monocytes (%) (Auto) 8 0-12 % Eosinophils (%) (Auto) 2 0-10 % Basophils (%) (Auto) 0 0-10 % Neutrophils # (Auto) 10.3 H 1.8-7.8 X 10^3 Lymphocytes # (Auto) 2.6 1.0-4.0 X 10^3 Monocytes # (Auto) 1.2 H 0.0-1.0 X 10^3 Eosinophils # (Auto) 0.2 0.0-0.3 10^3/uL Basophils # (Auto) 0.0 0.0-0.1 10^3/uL Neutrophils % (Manual) 78 % Lymphocytes % (Manual) 15 % Monocytes % (Manual) 6 % Eosinophils % (Manual) 1 % Basophils % (Manual) 0 % Band Neutrophils 0 % Anisocytosis SLIGHT Prothrombin Time 12.9 12.2-14.7 SEC INR Comment 0.9 0.8-1.4 Activated Partial Thromboplast Time 31 24-35 SEC Urine Color YELLOW Urine Clarity SL CLOUDY Urine pH 6.0 5-9 Urine Specific [place] 1.025 H 1.016-1.022 Urine Protein NEGATIVE NEGATIVE Urine Glucose (UA) NEGATIVE NEGATIVE Urine Ketones NEGATIVE NEGATIVE Urine Nitrite NEGATIVE NEGATIVE Urine Bilirubin NEGATIVE NEGATIVE Urine Urobilinogen 0.2 < = 1.0 MG/DL Urine Leukocyte Esterase NEGATIVE NEGATIVE Urine RBC (Auto) 1+ H NEGATIVE Urine RBC 2-5 H /HPF Urine WBC NONE /HPF Urine Squamous Epithelial Cells 5-10 /HPF Urine Crystals NONE /LPF Urine Bacteria NEGATIVE /HPF Urine Casts NONE /LPF Urine Mucus SMALL H /LPF Urine Culture Indicated NO Sodium Level 142 135-145 MMOL/L Potassium Level 3.4 L 3.6-5.0 MMOL/L Chloride Level 110 H 98-107 MMOL/L Carbon Dioxide Level 20 L 21-32 MMOL/L Anion Gap 12 5-14 MMOL/L Blood Urea Nitrogen 11 7-18 MG/DL Creatinine 0.66 0.60-1.30 MG/DL Estimat Glomerular Filtration Rate > 60 BUN/Creatinine Ratio 17 Glucose Level 93 70-105 MG/DL Lactic Acid Level 1.47 0.50-2.00 MMOL/L Calcium Level 9.1 8.5-10.1 MG/DL Corrected Calcium 9.2 8.5-10.1 MG/DL Magnesium Level 1.7 1.6-2.4 MG/DL Total Bilirubin 0.3 0.1-1.0 MG/DL Aspartate Amino Transf (AST/SGOT) 9 5-34 U/L Alanine Aminotransferase (ALT/SGPT) 15 0-55 U/L Alkaline Phosphatase 80 40-136 U/L Myoglobin 22.8 10.0-92.0 NG/ML Troponin I < 0.028 <0.028 NG/ML B-Type Natriuretic Peptide 72.9 <100.0 PG/ML Total Protein 7.4 6.4-8.2 GM/DL Albumin 3.9 3.2-4.5 GM/DL Micro Results Microbiology 10/10/19 Influenza Types A,B Antigen (NICOLETTE) - Final, Complete My Orders Orders - VINAYAKJOSÉ Cbc With Automated Diff (10/10/19 11:41) Magnesium (10/10/19 11:41) Ekg Tracing (10/10/19 11:41) Comprehensive Metabolic Panel (10/10/19 11:41) Myoglobin Serum (10/10/19 11:41) Protime With Inr (10/10/19 11:41) Partial Thromboplastin Time (10/10/19 11:41) O2 (10/10/19 11:41) Monitor-Rhythm Ecg Trace Only (10/10/19 11:41) Ed Iv/Invasive Line Start (10/10/19 11:41) BNP (10/10/19 11:41) Chest Pa/Lat (2 View) (10/10/19 11:41) Ua Culture If Indicated (10/10/19 11:52) Influenza A And B Antigens (10/10/19 11:52) Sputum Culture (10/10/19 11:52) Blood Culture (10/10/19 11:52) Lactic Acid Analyzer (10/10/19 11:52) Ed Iv/Invasive Line Start (10/10/19 11:52) Ns Iv 1000 Ml (Sodium Chloride 0.9%) (10/10/19 11:52) Albuterol/Ipra Inhalation Soln (Duoneb I (10/10/19 12:00) Svn Small Volume Nebulizer (10/10/19 11:59) Albuterol/Ipra Inhalation Soln (Duoneb I (10/10/19 11:56) Troponin I (10/10/19 11:56) Manual Differential (10/10/19 11:56) Methylprednisolone Sod Succ (Solu-Medrol (10/10/19 13:08) Medications Given in ED Current Medications Medications Dose Ordered Sig/Caitlin Route Start Time Stop Time Status Last Admin Dose Admin Albuterol/ Ipratropium 3 ml ONCE ONCE INH 10/10/19 12:00 10/10/19 12:01 DC 10/10/19 12:04 3 ML Vital Signs/I&O 10/10/19 10/10/19 11:39 12:08 Temp 37.0 Pulse 103 Resp 20 B/P (MAP) 120/60 (80) Pulse Ox 95 96 O2 Delivery Room Air Room Air Capillary Refill : Less Than 3 Seconds Blood Pressure Mean: 80 Progress Note : Time: 11:40 Progress Note Patient seen and evaluated. Will obtain EKG, labs, breathing treatment per RT, chest x-ray, sputum culture, IV fluids, Solu-Medrol 125 mg IV. Will continue to monitor. Oxygen 2 L per NC, SaO2 improved to 96-98%. 1215 after breathing treatment, RA SaO2 96%, after ambulation to bathroom. Less SOA after breathing treatment. 1300 Neg for Influenza, reports to be much better after Duoneb tx. Not requiring O2, SaO2 96-98% on RA. Less coughing, no chest pain. Labs reviewed with patient and daughter. Taking vitamin water. Has not received her IV fluids or medications, will change to IM and d/c IVF. Discharge instructions and return precautions reviewed with the patient in detail. All questions answered. ECG Initial ECG Impression Date: Oct 10, 2019 Initial ECG Impression Time: 12:16 Initial ECG Rate: 92 Initial ECG Rhythm: Normal Sinus Initial ECG Intervals: Normal Initial ECG Intervals CA 168, QRSD 86, QT 360, QTC 446. [place] P 73, QRS 63, T 67. Initial ECG Impression: Normal Initial ECG Comparisson: Unchanged Diagnostic Imaging Plain Films/CT/US/NM/MRI: chest Comments NAME: ROC NAYAK [facility] REC#: [id number] PT STATUS: REG ER : 1960 PHYSICIAN: JOSÉ LICEA ADMIT DATE: 10/10/19/ER Draft Date of Exam:10/10/19 CHEST PA/LAT (2 VIEW) INDICATION: History of lung cancer. Evaluate for pneumonia. FINDINGS: There are surgical changes present at the right hilum as well as parenchymal consolidation within the medial aspect of the right lung compatible with radiation therapy. There are stereotactic markers in the upper right paratracheal region just above the azygos vein. Background features of underlying pulmonary emphysema. There are no new regions of alveolar infiltrate or consolidation present. There is no effusion. Heart size is normal. There has been prior cervical fusion. Marked bone associated with the right 6th rib is unchanged and may be postsurgical in nature. IMPRESSION: 1. Background features of pulmonary emphysema and COPD with previous surgical changes at the right hilum and stereotactic markers within the right upper lobe. There are findings compatible with previous radiation port. No new infiltrate are apparent. Marked bone loss associated with the right 6th rib is unchanged. Dictated on workstation # [id number] Dict: 10/10/19 1235 Trans: 10/10/19 1238 CV [id number] Interpreted by: LUZ MARINA GRANADOS MD Electronically signed by: Reviewed: Reviewed by Me Departure Impression Primary Impression: Pneumonia Qualified Codes: J18.1 - Lobar pneumonia, unspecified organism Disposition: HOME, SELF-CARE Condition: Improved Departure-Patient Inst. Decision time for Depature: 13:00 Referrals: SHELLEY ROSENBERG DO (PCP/Family) Primary Care Physician Patient Instructions: Pneumonia, Adult (DC) Add. Discharge Instructions: Increase fluid intake, 16 ounces every 2 hours while awake. Use your DuoNeb breathing treatment every 4 hours while awake. Continue to take your Z-Bertrand as prescribed. Take prednisone 40 mg once daily for the next 4 days. Take the Augmentin as prescribed. Alternate between ibuprofen 600 mg and Tylenol 650 mg every 4 hours as needed for fever or pain. Follow-up with your primary care provider or oncologist next week if respiratory symptoms are not improving or worsen. Return to the emergency department if symptoms worsen, fever greater than 101 not relieved by Tylenol or ibuprofen, or new, urgent health care needs. All discharge instructions reviewed with patient and/or family. Voiced understanding. Scripts Amoxicillin/Potassium Clav (Augmentin 875-125 Tablet) 1 Each Tablet 1 EACH PO BID, #20 TAB 0 Refills Prov: JOSÉ LICEA 10/10/19 OJSÉ LICEA Oct 10, 2019 12:17
[2019-10-10 12:19] LABS: INR 0.9 (0.8-1.4); PROTHROMBIN TIME PATIENT 12.9 SEC (12.2-14.7)
[2019-10-10 12:28] LABS: ALANINE AMINOTRANSFERASE 15 U/L (0-55); ALBUMIN 3.9 GM/DL (3.2-4.5); ALKALINE PHOSPHATASE 80 U/L (40-136); BILIRUBIN,TOTAL 0.3 MG/DL (0.1-1.0); BUN/CREATININE RATIO 17; CALCIUM 9.1 MG/DL (8.5-10.1); CARBON DIOXIDE 20 MMOL/L (21-32); CHLORIDE 110 MMOL/L (98-107); CREATININE SERUM 0.66 MG/DL (0.60-1.30); GFR ESTIMATED > 60; GLUCOSE 93 MG/DL (70-105); MAGNESIUM 1.7 MG/DL (1.6-2.4); POTASSIUM 3.4 MMOL/L (3.6-5.0); SODIUM 142 MMOL/L (135-145); TOTAL PROTEIN 7.4 GM/DL (6.4-8.2)
[2019-10-10 12:37] LABS: BACTERIA,URINE NEGATIVE /HPF
--- NOTE | 2019-10-10 12:39 | Diagnostic Imaging Report ---
INDICATION: History of lung cancer. Evaluate for pneumonia. FINDINGS: There are surgical changes present at the right hilum as well as parenchymal consolidation within the medial aspect of the right lung compatible with radiation therapy. There are stereotactic markers in the upper right paratracheal region just above the azygos vein. Background features of underlying pulmonary emphysema. There are no new regions of alveolar infiltrate or consolidation present. There is no effusion. Heart size is normal. There has been prior cervical fusion. Marked bone associated with the right 6th rib is unchanged and may be postsurgical in nature. IMPRESSION: 1. Background features of pulmonary emphysema and COPD with previous surgical changes at the right hilum and stereotactic markers within the right upper lobe. There are findings compatible with previous radiation port. No new infiltrate are apparent. Marked bone loss associated with the right 6th rib is unchanged. Dictated by: Dictated on workstation # [id number]
[2019-10-10 13:07] LABS: ANISOCYTOSIS SLIGHT; BAND NEUTROPHILS 0 %; BASOPHILS % (MANUAL) 0 %; EOSINOPHILS % (MANUAL) 1 %; LYMPHOCYTES % (MANUAL) 15 %; MONOCYTES % (MANUAL) 6 %; NEUTROPHILS % (MANUAL) 78 %
[2019-10-10] MEDS ORDERED: methylPREDNISolone 125 MG (Solu-MEDROL) VIAL IM STA (13:08)
[2019-10-10] MEDS ORDERED: AMOX-358 PO ×2 (13:12→13:27)
[2019-10-10 13:21] VITALS: BP 125/65
== END 2019-10-10 13:21 | disposition home or self-care (01) ==
LOC: EDUNIT# 11:28 → ER 11:29
DX: J18.9 Pneumonia, unspecified organism (principal); I48.91 Unspecified atrial fibrillation; J44.9 Chronic obstructive pulmonary disease, unspecified; E78.00 Pure hypercholesterolemia, unspecified; F41.9 Anxiety disorder, unspecified; F32.9 Major depressive disorder, single episode, unspecified; K21.9 Gastro-esophageal reflux disease without esophagitis; F17.210 Nicotine dependence, cigarettes, uncomplicated; Z85.118 Personal history of other malignant neoplasm of bronchus and lung; Z79.01 Long term (current) use of anticoagulants; Z79.52 Long term (current) use of systemic steroids; Z79.51 Long term (current) use of inhaled steroids; Z80.1 Family history of malignant neoplasm of trachea, bronchus and lung
CPT/HCPCS: 36415; 71046; 80053; 81000; 83605; 83735; 83874; 83880; 84484; 85007; 85027; 85610; 85730; 87040; 87070; 87205; 87804; 93005; 93041; 94640; 96372

== ENCOUNTER → 2019-12-03 | Outpatient (CLI) | payer MEDICARE, MEDICAID ==
[~2019-12-03] MED LIST changes: +ACHYD1T PO; +AMOX-358 PO; +CATHETER FLUSH 10 ML SYR IV PRN; -CETI10TA20 PO; +CETI10TA21 PO; +HOLD METFORMIN - RECEIVED CONTRAST 20 ML VIAL IV SCH; -HYDR-3820 PO; +IOHEXOL 350 MG/ML 100 ML (OMNIPAQUE 350) VIAL IV ONE; -MONT10TA24 PO; +MONT10TA26 PO; +NS 100 ML (IVPB) BAG IV ONE
[2019-12-03 09:46] LABS: CREATININE SERUM 0.75 MG/DL (0.60-1.30); GFR ESTIMATED > 60
[2019-12-03 09:47] LABS: BUN/CREATININE RATIO 11
--- NOTE | 2019-12-03 11:14 | Diagnostic Imaging Report ---
PROCEDURE: CT chest with contrast only. TECHNIQUE: Multiple contiguous axial images were obtained through the chest after administration of intravenous contrast. Auto Exposure Controls were utilized during the CT exam to meet ALARA standards for radiation dose reduction. INDICATION: COPD, cough. COMPARISON: Radiographs dated 10/10/2019, CT dated 06/28/2019, 08/09/2017 FINDINGS: Bilateral breast implants are in place. No significant adenopathy. No aneurysmal dilatation of thoracic aorta. The heart is within normal limits in size. No significant pericardial effusion. No pleural effusion. Postsurgical changes are again identified within the right hilar region with additional fiducial markers and postsurgical changes within the right suprahilar region. Severe background emphysematous changes are present, particularly within the right upper lung. Architectural distortion, traction bronchiectasis, and fibrosis is again noted within the right paramediastinal region, appearing similar to prior imaging and felt to relate to postradiation changes. No pneumothorax. No additional new focal pulmonary nodule or opacity. Subcentimeter hypodensity within the left hepatic lobe has not significantly changed since 2017. Right renal cyst. Otherwise, the visualized upper abdomen is unremarkable. Postsurgical changes within the cervical spine. Postsurgical changes associated with the right 6th rib. Serpiginous sclerosis is noted within the superior aspect of the humeral head, similar to the prior examinations. Scattered osseous degenerative changes. IMPRESSION: Stable postsurgical changes associated with the right lung with associated advanced background emphysematous changes and postradiation changes. Mild serpiginous sclerosis within the right humeral head. This appears stable from the prior examination and may relate to avascular necrosis. Additional findings as described above. Dictated by: Dictated on workstation # [id number]
== END ==
LOC: RAD 09:15
PROVIDERS: ATTEND Nurse Practitioner Family
DX: J43.9 Emphysema, unspecified (principal); M89.8X9 Other specified disorders of bone, unspecified site; J18.8 Other pneumonia, unspecified organism; J47.9 Bronchiectasis, uncomplicated; J84.10 Pulmonary fibrosis, unspecified; K76.89 Other specified diseases of liver; N28.1 Cyst of kidney, acquired; Z98.82 Breast implant status; Z98.890 Other specified postprocedural states; Z72.0 Tobacco use
CPT/HCPCS: 36415; 71260; 82565; 84520

== ENCOUNTER → 2020-03-02 | Outpatient (CLI) | payer MEDICARE, MEDICAID ==
[~2020-03-02] MED LIST changes: -CATHETER FLUSH 10 ML SYR IV PRN; -HOLD METFORMIN - RECEIVED CONTRAST 20 ML VIAL IV SCH; -IOHEXOL 350 MG/ML 100 ML (OMNIPAQUE 350) VIAL IV ONE; -NS 100 ML (IVPB) BAG IV ONE
[2020-03-02 09:38] LABS: BASOPHILS % (AUTO) 1 % (0-10); EOSINOPHILS # (AUTO) 0.2 10^3/uL (0.0-0.3); EOSINOPHILS % (AUTO) 4 % (0-10); HEMATOCRIT 40 % (35-52); HEMOGLOBIN 13.3 G/DL (11.5-16.0); LYMPHOCYTES # (AUTO) 1.6 X 10^3 (1.0-4.0); LYMPHOCYTES % (AUTO) 25 % (12-44); MEAN CORPUSCULAR HEMOGLOBIN 33 PG (25-34); MEAN CORPUSCULAR HGB CONC 33 G/DL (32-36); MEAN CORPUSCULAR VOLUME 98 FL (80-99); MEAN PLATELET VOLUME 10.3 FL (7.4-10.4); MONOCYTES # (AUTO) 0.6 X 10^3 (0.0-1.0); MONOCYTES % (AUTO) 9 % (0-12); NEUTROPHILS % (AUTO) 62 % (42-75); PLATELET COUNT 220 10^3/uL (130-400); RED CELL DISTRIBUTION WIDTH 15.5 % (10.0-14.5); WHITE BLOOD COUNT 6.5 10^3/uL (4.3-11.0)
[2020-03-02 10:14] LABS: FREE T4 (FREE THYROXINE) 0.93 NG/DL (0.70-1.48)
== END ==
LOC: LAB 09:00
PROVIDERS: ATTEND Student in an Organized Health Care Education/Training Program
DX: F41.1 Generalized anxiety disorder (principal); L65.9 Nonscarring hair loss, unspecified
CPT/HCPCS: 36415; 82607; 82728; 83540; 84439; 84443; 84445; 84480; 85025; 86376

== ENCOUNTER → 2020-03-02 | Outpatient (CLI) | payer MEDICARE, MEDICAID | LOC: LABNPT 07:07 | PROVIDERS: ATTEND Student in an Organized Health Care Education/Training Program | DX: Z20.828 Contact with and (suspected) exposure to other viral communicable diseases (principal) | CPT/HCPCS: 87635 ==

== ENCOUNTER → 2020-05-24 | Outpatient (CLI) | payer MEDICARE, MEDICAID ==
[~2020-05-24] MED LIST changes: -CETI10TA21 PO; +CETI10TA49 PO; -PANT40TA3 PO; +PANT40TA52 PO
[2020-05-24 17:18] LABS: BASOPHILS % (AUTO) 1 % (0-10); EOSINOPHILS # (AUTO) 0.3 10^3/uL (0.0-0.3); EOSINOPHILS % (AUTO) 4 % (0-10); HEMATOCRIT 41 % (35-52); HEMOGLOBIN 13.5 g/dL (11.5-16.0); LYMPHOCYTES % (AUTO) 27 % (12-44); MEAN CORPUSCULAR HEMOGLOBIN 34 pg (25-34); MEAN CORPUSCULAR HGB CONC 33 g/dL (32-36); MEAN CORPUSCULAR VOLUME 102 fL (80-99); MEAN PLATELET VOLUME 10.2 fL (9.0-12.2); MONOCYTES # (AUTO) 0.5 10^3/uL (0.0-1.0); MONOCYTES % (AUTO) 7 % (0-12); NEUTROPHILS # (AUTO) 4.5 10^3/uL (1.8-7.8); NEUTROPHILS % (AUTO) 62 % (42-75); PLATELET COUNT 247 10^3/uL (130-400); WHITE BLOOD COUNT 7.2 10^3/uL (4.3-11.0)
[2020-05-24 17:42] LABS: ALANINE AMINOTRANSFERASE 19 U/L (0-55); ALBUMIN 3.9 GM/DL (3.2-4.5); ALKALINE PHOSPHATASE 70 U/L (40-136); BILIRUBIN,TOTAL 0.3 MG/DL (0.1-1.0); BUN/CREATININE RATIO 15; CALCIUM 8.8 MG/DL (8.5-10.1); CARBON DIOXIDE 24 MMOL/L (21-32); CHLORIDE 108 MMOL/L (98-107); CREATININE SERUM 0.82 MG/DL (0.60-1.30); GFR ESTIMATED > 60; GLUCOSE 97 MG/DL (70-105); POTASSIUM 3.6 MMOL/L (3.6-5.0); SODIUM 140 MMOL/L (135-145); TOTAL PROTEIN 6.9 GM/DL (6.4-8.2)
[2020-05-24 18:03] LABS: FREE T4 (FREE THYROXINE) 0.92 NG/DL (0.70-1.48)
== END ==
LOC: LAB 16:27
PROVIDERS: ATTEND Student in an Organized Health Care Education/Training Program
DX: M62.838 Other muscle spasm (principal); R63.4 Abnormal weight loss; R26.89 Other abnormalities of gait and mobility
CPT/HCPCS: 36415; 80053; 82607; 84439; 84443; 84480; 85025; 85652; 86235

== ENCOUNTER → 2020-10-26 | Outpatient (CLI) | payer MEDICARE, MEDICAID ==
[~2020-10-26] MED LIST changes: -CYAN250T PO; +CYAN250T3 PO; -FLUO10CA30 PO; +FLUO10CA31 PO; -MONT10TA26 PO; +MONT10TA32 PO
== END ==
LOC: LAB 10:16
PROVIDERS: ATTEND Obstetrics & Gynecology
DX: E03.8 Other specified hypothyroidism (principal); H04.129 Dry eye syndrome of unspecified lacrimal gland
CPT/HCPCS: 36415; 84436; 84443; 84479; 86038; 86039; 86235; 86376; 86431

== ENCOUNTER 2021-06-12 13:28 | Emergency (ER) | payer MEDICARE, MEDICAID ==
[~2021-06-12] VITALS: Ht 165 cm; Wt 76.2 kg
[~2021-06-12 13:28] MED LIST changes: -SULF1TAB35 PO; +SULF1TAB38 PO; +TERC45CR2 VG; -TERC45CR4 VG
[2021-06-12 14:16] LABS: BASOPHILS # (AUTO) 0.1 10^3/uL (0.0-0.1); BASOPHILS % (AUTO) 1 % (0-10); EOSINOPHILS # (AUTO) 0.2 10^3/uL (0.0-0.3); EOSINOPHILS % (AUTO) 2 % (0-10); HEMATOCRIT 42 % (35-52); HEMOGLOBIN 13.8 g/dL (11.5-16.0); LYMPHOCYTES # (AUTO) 1.8 10^3/uL (1.0-4.0); LYMPHOCYTES % (AUTO) 18 % (12-44); MEAN CORPUSCULAR HEMOGLOBIN 34 pg (25-34); MEAN CORPUSCULAR HGB CONC 33 g/dL (32-36); MEAN CORPUSCULAR VOLUME 103 fL (80-99); MEAN PLATELET VOLUME 10.4 fL (9.0-12.2); MONOCYTES # (AUTO) 0.7 10^3/uL (0.0-1.0); MONOCYTES % (AUTO) 7 % (0-12); NEUTROPHILS # (AUTO) 7.3 10^3/uL (1.8-7.8); NEUTROPHILS % (AUTO) 72 % (42-75); PLATELET COUNT 272 10^3/uL (130-400)
--- NOTE | 2021-06-12 14:19 | ED Cough/URI ---
General Chief Complaint: Cough/Cold/Flu Symptoms Stated Complaint: COUGHING UP BLOOD,SOB, COUGH Nursing Triage Note: PT PRESENTS TO ED VIA POV FROM HOME WITH COMPLAINTS OF COUGH, CHILLS, MALAISE, AND CONGESTION. PT REPORTS S/S STARTED ON SATURDAY. Source: patient Exam Limitations: no limitations History of Present Illness Date Seen by Provider: Jun 12, 2021 Time Seen by Provider: 13:30 Initial Comments To ER with reports of chills malaise congestion productive cough. She has COPD and has had an increasingly productive cough over the past few weeks. Is productive of greenish sputum. No fever. Timing/Duration: just prior to arrival, getting worse Severity/Quality: moderate Modifying Factors: Improves With Activity Associated Symptoms: cough Allergies and Home Medications Allergies Coded Allergies: No Known Drug Allergies (Unverified , 12/04/18) Patient Home Medication List Home Medication List Reviewed: Yes Acetylcysteine (Nac) 600 Mg Capsule, 600 MG PO DAILY, (Reported) Entered as Reported by: VICKI ELLIS on 02/17/18 0957 Albuterol Sulfate (Ventolin Hfa) 18 Gm Hfa.aer.ad, 2 PUFF INH Q4H PRN for SHORTNESS OF BREATH, (Reported) Entered as Reported by: SHELLEY IBANEZ on 07/25/17 0936 Albuterol Sulfate (Albuterol Sulfate) 2.5 Mg/0.5 Ml Vial.neb, 2.5 MG INH Q4H PRN for SHORTNESS OF BREATH, (Reported) Entered as Reported by: BURT BULL on 12/04/18 1410 Amoxicillin/Potassium Clav (Augmentin 875-125 Tablet) 1 Each Tablet, 1 EACH PO BID Prescribed by: JOSÉ LICEA on 10/10/19 1327 Apixaban (Eliquis) 5 Mg Tab.ds.pk, 2.5 MG PO BID, (Reported) Entered as Reported by: BURT BULL on 12/04/18 1410 Azithromycin (Azithromycin) 250 Mg Tablet, 250 MG PO UD Prescribed by: VIVIAN BARRERA on 06/28/19 1750 Buspirone HCl (Buspirone HCl) 5 Mg Tablet, 5 MG PO BID, (Reported) Entered as Reported by: BURT BULL on 12/04/18 1410 Cefuroxime Axetil (Cefuroxime) 500 Mg Tablet, 500 MG PO BID Prescribed by: VIVIAN BARRERA on 06/12/21 1455 Cholecalciferol (Vitamin D3) (Vitamin D3) 1,000 Unit Capsule, 1,000 UNIT PO DAILY, (Reported) Entered as Reported by: VICKI ELLIS on 02/17/18 0957 Dexlansoprazole (Dexilant) 60 Mg Cap.bp, 60 MG PO DAILY, (Reported) Entered as Reported by: VICKI ELLIS on 02/17/18 09 Diltiazem HCl (Cartia Xt) 240 Mg Cap.er.24h, 240 MG PO DAILY, (Reported) Entered as Reported by: JOSÉ ORTIZ on 07/09/17 1352 Estradiol (Estradiol Tablet) 1 Mg Tablet, 1 MG PO DAILY, (Reported) Entered as Reported by: BURT BULL on 12/04/18 141 Fexofenadine HCl (Fexofenadine HCl) 180 Mg Tablet, 180 MG PO DAILY, (Reported) Entered as Reported by: SHELLEY IBANEZ on 07/25/17 0936 Fluoxetine HCl (Prozac) 20 Mg Capsule, 20 MG PO DAILY, (Reported) Entered as Reported by: BURT BULL on 12/04/18 141 Fluticasone Propionate (Fluticasone Propionate) 16 Gm [place].susp, 2 SPRAY NS DAILY, (Reported) Entered as Reported by: SHELLEY IBANEZ on 07/25/17 0936 Fluticasone/Umeclidin/Vilanter (Trelegy Ellipta 100-62.5-25) 1 Each Blst.w.dev, 1 EACH IH DAILY, (Reported) Entered as Reported by: BURT BULL on 12/04/18 141 Gabapentin (Gabapentin) 300 Mg Capsule, 300 MG PO DAILY, (Reported) Entered as Reported by: BURT BULL on 12/04/18 141 Hydrocodone Bit/Acetaminophen (HYDROcodone/APAP 10/325 TABLET) 1 Each Tablet, 1 EACH PO Q6H PRN for PAIN-MILD TO MODERATE, (Reported) Entered as Reported by: VICKI ELLIS on 02/17/18 09 Mepolizumab (Recombinant) (Nucala) 100 Mg Vial, 100 MG SQ MONTHLY, (Reported) Entered as Reported by: BURT BULL on 12/04/18 141 Montelukast Sodium (Montelukast Sodium) 10 Mg Tablet, 10 MG PO HS, (Reported) Entered as Reported by: VICKI ELLIS on 11/29/16 1609 Nicotine (Nicoderm Cq) 1 Each Patch.td24, 21 MG TD DAILY, (Reported) Entered as Reported by: BURT BULL on 12/04/18 141 Ondansetron (Ondansetron Odt) 4 Mg Tab.rapdis, 4 MG PO Q4H PRN for NAUSEA/VOMITING, (Reported) Entered as Reported by: BURT BULL on 12/04/18 141 Pravastatin Sodium (Pravastatin Sodium) 40 Mg Tablet, 40 MG PO HS, (Reported) Entered as Reported by: VICKI ELLIS on 11/29/16 1609 Prednisone (Prednisone) 20 Mg Tab, 40 MG PO DAILY Prescribed by: VIVIAN BARRERA on 06/28/19 1750 Prednisone (Prednisone) 20 Mg Tab, 40 MG PO DAILY Prescribed by: VIVIAN BARRERA on 06/12/21 1455 Roflumilast (Daliresp) 500 Mcg Tablet, 500 MCG PO DAILY, (Reported) Entered as Reported by: BURT BULL on 12/04/18 141 Tizanidine HCl (Zanaflex) 4 Mg Capsule, 4 MG PO DAILY PRN for PAIN-MODERATE, (Reported) Entered as Reported by: BURT BULL on 12/04/18 141 Review of Systems Review of Systems Constitutional: see HPI, chills, malaise EENTM: see HPI Respiratory: see HPI, cough Cardiovascular: no symptoms reported Genitourinary: no symptoms reported Musculoskeletal: no symptoms reported Skin: no symptoms reported Past Hjecyll-Iaidsa-Hmcvaw Hx Patient Social History Tobacco Use?: Yes Tobacco type used: Cigarettes Smoking Status: Current Everyday Smoker Smokeless Tobacco Frequency: Current Everyday User Substance use?: No Alcohol Use?: Yes Alcohol Frequency: Rarely Pt feels they are or have been: No Immunizations Up To Date Tetanus Booster (TDap): Unknown PED Vaccines UTD: No First/Initial COVID19 Vaccinat: november 2020 Second COVID19 Vaccination Enoc: december 2020 COVID19 Vaccine Refrigerator Mover: tiffanie Seasonal Allergies Seasonal Allergies: Yes Past Medical History Surgery/Hospitalization HX: sx: r middle lobe lumpectomy, hyst, tubal, cervical fusion, breast augmentation pmh: lung ca, copd, deg disk disease, Surgeries: Yes (BUNIONECTOMY, NECK FUSION, BREAST IMPLANTS) Lobectomy, Tubal Ligation Respiratory: Yes ( HX OF LUNG CA, O2 2L NC) Asthma, COPD Currently Using CPAP: No Currently Using BIPAP: No Cardiac: Yes (TACHYCARDIA) Atrial Fibrillation, High Cholesterol Neurological: No 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 Sexually Transmitted Disease: No HIV/AIDS: No Genitourinary: No Gastrointestinal: Yes Gastroesophageal Reflux, Irritable Bowel Musculoskeletal: Yes (joint pain) Arthritis, Chronic Back Pain Endocrine: No HEENT: Yes (READING GLASSES) Loss of Vision: Bilateral Hearing Impairment: Denies Cancer: Yes Lung What Type of Treatment Did You: Chemotherapy, Radiation, Surgical Intervention Psychosocial: Yes Anxiety, Depression Integumentary: No Blood Disorders: No Adverse Reaction/Blood Tranf: No (N/A) Family Medical History FH: lung cancer 19 FATHER 19 MOTHER No Pertinent Family Hx Physical Exam Vital Signs - First Documented 06/12/21 14:01 Temp 36.6 Pulse 100 Resp 18 B/P (MAP) 112/73 (86) Pulse Ox 97 Capillary Refill : Less Than 3 Seconds Height: 5'5.00" Weight: 179lbs. 2.0oz. 81.535331be; 27.00 BMI Method:Stated General Appearance: WD/WN, no apparent distress Eyes: Bilateral Eye Normal Inspection, Bilateral Eye PERRL, Bilateral Eye EOMI Respiratory: lungs clear, normal breath sounds, no respiratory distress, no accessory muscle use; No wheezing; other (95 to 97% on room air) Cardiovascular: regular rate, rhythm, no murmur Gastrointestinal: normal bowel sounds, non tender Extremities: normal range of motion, non-tender Neurologic/Psychiatric: alert, normal mood/affect, oriented x 3 Skin: normal color, warm/dry Progress/Results/Core Measures Suspected Sepsis SIRS Temperature: Pulse: 100 Respiratory Rate: 18 Laboratory Tests 06/12/21 14:00: White Blood Count 10.0 Blood Pressure 112 /73 Mean: 86 Laboratory Tests 06/12/21 14:00: Creatinine 0.67, Platelet Count 272, Total Bilirubin 0.3 Results/Orders Lab Results Laboratory Tests Test 06/12/21 14:00 Range/Units White Blood Count 10.0 4.3-11.0 10^3/uL Red Blood Count 4.06 3.80-5.11 10^6/uL Hemoglobin 13.8 11.5-16.0 g/dL Hematocrit 42 35-52 % Mean Corpuscular Volume 103 H 80-99 fL Mean Corpuscular Hemoglobin 34 25-34 pg Mean Corpuscular Hemoglobin Concent 33 32-36 g/dL Red Cell Distribution Width 13.8 10.0-14.5 % Platelet Count 272 130-400 10^3/uL Mean Platelet Volume 10.4 9.0-12.2 fL Immature Granulocyte % (Auto) 0 % Neutrophils (%) (Auto) 72 42-75 % Lymphocytes (%) (Auto) 18 12-44 % Monocytes (%) (Auto) 7 0-12 % Eosinophils (%) (Auto) 2 0-10 % Basophils (%) (Auto) 1 0-10 % Neutrophils # (Auto) 7.3 1.8-7.8 10^3/uL Lymphocytes # (Auto) 1.8 1.0-4.0 10^3/uL Monocytes # (Auto) 0.7 0.0-1.0 10^3/uL Eosinophils # (Auto) 0.2 0.0-0.3 10^3/uL Basophils # (Auto) 0.1 0.0-0.1 10^3/uL Immature Granulocyte # (Auto) 0.0 0.0-0.1 10^3/uL D-Dimer 0.54 H 0.00-0.49 UG/ML Sodium Level 138 135-145 MMOL/L Potassium Level 4.0 3.6-5.0 MMOL/L Chloride Level 105 98-107 MMOL/L Carbon Dioxide Level 23 21-32 MMOL/L Anion Gap 10 5-14 MMOL/L Blood Urea Nitrogen 10 7-18 MG/DL Creatinine 0.67 0.60-1.30 MG/DL Estimat Glomerular Filtration Rate 90 BUN/Creatinine Ratio 15 Glucose Level 93 70-105 MG/DL Calcium Level 9.5 8.5-10.1 MG/DL Corrected Calcium 9.7 8.5-10.1 MG/DL Total Bilirubin 0.3 0.1-1.0 MG/DL Aspartate Amino Transf (AST/SGOT) 12 5-34 U/L Alanine Aminotransferase (ALT/SGPT) 17 0-55 U/L Alkaline Phosphatase 72 40-136 U/L Total Protein 7.2 6.4-8.2 GM/DL Albumin 3.8 3.2-4.5 GM/DL SARS-CoV-2 RNA (RT-PCR) Not Detected Not Detecte My Orders Orders - VIVIAN BARRERA 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 Cbc With Automated Diff (06/12/21 13:49) Comprehensive Metabolic Panel (06/12/21 13:49) Ua Culture If Indicated (06/12/21 13:49) Ed Iv/Invasive Line Start (06/12/21 13:49) Fibrin Degradation Products (06/12/21 13:49) Chest 1 View, Ap/Pa Only (06/12/21 13:49) Covid 19 Inhouse Test (06/12/21 13:49) Vital Signs/I&O 06/12/21 14:01 Temp 36.6 Pulse 100 Resp 18 B/P (MAP) 112/73 (86) Pulse Ox 97 Capillary Refill : Less Than 3 Seconds Blood Pressure Mean: 86 Departure Impression Primary Impression: Bronchitis Additional Impression: COPD (chronic obstructive pulmonary disease) Disposition: 01 HOME, SELF-CARE Condition: Stable Departure-Patient Inst. Decision time for Depature: 14:53 Referrals: SHELLEY ROSENBERG DO (PCP/Family) Primary Care Physician Patient Instructions: Acute Bronchitis, Adult (DC) Add. Discharge Instructions: 1. Return to ER for any concerns. ANtibiotics and steroids as directed. Follow up with your doctor next week. All discharge instructions reviewed with patient and/or family. Voiced understanding. Scripts Prednisone (Prednisone) 20 Mg Tab 40 MG PO DAILY, #6 TAB 0 Refills Prov: VIVIAN BARRERA APRN 06/12/21 Cefuroxime Axetil (Cefuroxime) 500 Mg Tablet 500 MG PO BID, #10 TAB Prov: VIVIAN BARRERA APRN 06/12/21 VIVIAN BARRERA APRN Jun 12, 2021 14:19
[2021-06-12 14:39] LABS: ALBUMIN 3.8 GM/DL (3.2-4.5)
[2021-06-12 14:40] LABS: CALCIUM 9.5 MG/DL (8.5-10.1)
[2021-06-12 14:42] LABS: TOTAL PROTEIN 7.2 GM/DL (6.4-8.2)
[2021-06-12 14:44] LABS: BILIRUBIN,TOTAL 0.3 MG/DL (0.1-1.0)
[2021-06-12 14:45] LABS: CREATININE SERUM 0.67 MG/DL (0.60-1.30)
[2021-06-12] MEDS ORDERED: CEFU500T63 PO (14:55)
[2021-06-12] MEDS ORDERED: PRD20T PO (14:55)
[2021-06-12] MEDS ORDERED: methylPREDNISolone 40 MG/ML (Solu-MEDROL) VIAL IV ONE (15:45)
[2021-06-12] MEDS ORDERED: cefTRIAXone 1,000 MG in WATER (STERILE) FOR INJECTION 10 ML IV ONE (15:45)
[2021-06-12 15:56] VITALS: BP 122/84
--- NOTE | 2021-06-12 16:10 | Diagnostic Imaging Report ---
INDICATION: Cough and chills and malaise. TECHNIQUE: Frontal chest obtained at 03:27 p.m. and compared to 10/10/2019. FINDINGS: Heart is borderline in size. There is hyperinflation compatible with COPD. There is no focal infiltrate or pneumothorax or pleural fluid. There are surgical clips in the right upper lung field with previous thoracotomy. There is bullous change in the right apex. IMPRESSION: Chronic changes as described above, appearing similar to 10/10/2019. No new infiltrate. Dictated by: Dictated on workstation # [id number]
[2021-06-12 16:55] LABS: BILIRUBIN,URINE NEGATIVE (NEGATIVE); CLARITY,URINE CLEAR; COLOR,URINE YELLOW; GLUCOSE, URINE (UA) NEGATIVE (NEGATIVE); KETONES,URINE 2+ (NEGATIVE); LEUKOCYTE ESTERASE ,URINE NEGATIVE (NEGATIVE); NITRITE,URINE NEGATIVE (NEGATIVE); PH,URINE 7.5 (5-9); PROTEIN,URINE NEGATIVE (NEGATIVE)
[2021-06-12 17:02] LABS: BACTERIA,URINE NEGATIVE /HPF
== END 2021-06-12 15:56 | disposition home or self-care (01) ==
LOC: EDUNIT# 13:28 → ER 13:29
DX: J40 Bronchitis, not specified as acute or chronic (principal); J44.9 Chronic obstructive pulmonary disease, unspecified; I48.91 Unspecified atrial fibrillation; F41.9 Anxiety disorder, unspecified; F32.9 Major depressive disorder, single episode, unspecified; G89.29 Other chronic pain; M54.9 Dorsalgia, unspecified; K21.9 Gastro-esophageal reflux disease without esophagitis; E78.00 Pure hypercholesterolemia, unspecified; F17.210 Nicotine dependence, cigarettes, uncomplicated; Z20.822 Contact with and (suspected) exposure to COVID-19; Z79.01 Long term (current) use of anticoagulants; Z79.899 Other long term (current) drug therapy; Z79.891 Long term (current) use of opiate analgesic
CPT/HCPCS: 36415; 71045; 80053; 81000; 85025; 85379; 87636

== ENCOUNTER 2021-09-16 09:51 | Inpatient (IN) | payer MEDICARE, MEDICAID ==
[~2021-09-16] VITALS: Ht 165 cm; Wt 76.0 kg
[~2021-09-16 09:51] MED LIST changes: +CEFU500T63 PO; -FLUO10CA31 PO; +FLUO10CA33 PO; +MONT-40 PO; -MONT10TA32 PO
[2021-09-16] MEDS ORDERED: guaiFENesin/CODEINE (ROBITUSSIN AC) 10ML UDC PO STA (10:29)
[2021-09-16] MEDS ORDERED: NS IV 1000 ML 1,000 ML IV SCH (10:30)
[2021-09-16] MEDS ORDERED: ONDANSETRON 4 MG/2 ML (SDV) Z0FRAN IVP ONE (10:30)
[2021-09-16] MEDS ORDERED: RT-ALBUTEROL HFA 8.5 GM INHALER IH ONE (10:38)
[2021-09-16 10:42] LABS: BASOPHILS # (AUTO) 0.1 10^3/uL (0.0-0.1); BASOPHILS % (AUTO) 0 % (0-10); EOSINOPHILS % (AUTO) 0 % (0-10); HEMATOCRIT 42 % (35-52); HEMOGLOBIN 14.1 g/dL (11.5-16.0); LYMPHOCYTES # (AUTO) 0.6 10^3/uL (1.0-4.0); LYMPHOCYTES % (AUTO) 3 % (12-44); MEAN CORPUSCULAR HEMOGLOBIN 34 pg (25-34); MEAN CORPUSCULAR HGB CONC 33 g/dL (32-36); MEAN CORPUSCULAR VOLUME 102 fL (80-99); MEAN PLATELET VOLUME 10.6 fL (9.0-12.2); MONOCYTES # (AUTO) 0.3 10^3/uL (0.0-1.0); MONOCYTES % (AUTO) 2 % (0-12); NEUTROPHILS # (AUTO) 20.9 10^3/uL (1.8-7.8); NEUTROPHILS % (AUTO) 94 % (42-75); PLATELET COUNT 214 10^3/uL (130-400); WHITE BLOOD COUNT 22.1 10^3/uL (4.3-11.0)
[2021-09-16 10:43] LABS: ALBUMIN 3.8 GM/DL (3.2-4.5); POTASSIUM 3.4 MMOL/L (3.6-5.0)
[2021-09-16 10:49] LABS: CREATININE SERUM 0.74 MG/DL (0.60-1.30); INR 1.1 (0.8-1.4); PROTHROMBIN TIME PATIENT 14.6 SEC (12.2-14.7)
--- NOTE | 2021-09-16 10:59 | ED Cough/URI ---
General Stated Complaint: EXPOSURE,CHILLS,BODY ACHES, COPD,COUGHING UP BLOOD Source: patient Exam Limitations: no limitations (SHELLEY RANDLE STUDENT) History of Present Illness Date Seen by Provider: Sep 16, 2021 Time Seen by Provider: 10:35 Initial Comments Patient is a 61yoF with history of COPD, lung cancer and partial right lobectomy who presents with cc of cough, sore throat, SOA, nausea, poor appetite and body aches. She has been feeling bad for at least two weeks and had a negative home Covid test ~10-12 days ago. She thought she was getting a little better but then she aspirated spicy ramen soup a week ago and has worsened since that time. She has a cough and has been coughing up frothy pink sputum since last night which prompted her to come to ED. She denies fever, diarrhea, palpitations, dysuria and hematuria. She has been taking OTC Tylenol and Ibuprofen as well as Zofran. Patient did breathing treatment at home last night which mildly helped SOA. Patient states that she smokes cigarettes occasionally but hasn't in the last two weeks since she's been sick. She lives at home with her son and two grandchildren. When asked if they have been ill too she says "it is hard to tell". She has had both Covid vaccines as well as a booster. Patient his mildly hypoxic O2 92% on room air and tachycardic 112. She improves to 97% on 2L O2. Timing/Duration: getting worse Severity/Quality: productive cough, blood streaked sputum Associated Symptoms: chest pain/soreness, cough, fever/chills, muscle aches, shortness of breath, sore throat (SHELLEY RANDLE STUDENT) Allergies and Home Medications Allergies Coded Allergies: No Known Drug Allergies (Unverified , 12/04/18) Patient Home Medication List Home Medication List Reviewed: Yes (MARTHA HAZEL MD) Acetylcysteine (Nac) 600 Mg Capsule, 600 MG PO DAILY, (Reported) Entered as Reported by: VICKI ELLIS on 02/17/18 2776 Last Action: Converted Albuterol Sulfate (Ventolin Hfa) 18 Gm Hfa.aer.ad, 2 PUFF INH Q4H PRN for SHORTNESS OF BREATH, (Reported) Entered as Reported by: SHELLEY IBANEZ on 07/25/17935 Last Action: Held Albuterol Sulfate (Albuterol Sulfate) 2.5 Mg/0.5 Ml Vial.neb, 2.5 MG INH Q4H PRN for SHORTNESS OF BREATH, (Reported) Entered as Reported by: BURT BULL on 12/04/181409 Last Action: Held Dexlansoprazole (Dexilant) 60 Mg Cap.dr.bp, 60 MG PO DAILY, (Reported) Entered as Reported by: VICKI ELLIS on 02/17/18 0957 Last Action: Converted Diazepam (Valium) 5 Mg Tablet, 5 MG PO BID PRN for ANXIETY, (Reported) Entered as Reported by: DELVIN CANELA on 09/17/211054 Last Action: Continued Diclofenac Sodium (Voltaren Arthritis Pain) 20 Gm Gel..gram., 20 GM TP PRN, (Reported) Entered as Reported by: DELVIN CANELA on 09/17/211054 Last Action: Held Diltiazem HCl (Cartia Xt) 240 Mg Cap.er.24h, 240 MG PO DAILY, (Reported) Entered as Reported by: JOSÉ ORTIZ on 07/09/17 1352 Last Action: Continued Estradiol (Estradiol Tablet) 1 Mg Tablet, 2 MG PO DAILY, (Reported) Entered as Reported by: BURT BULL on 12/04/181409 Last Action: Continued Fexofenadine HCl (Fexofenadine HCl) 180 Mg Tablet, 180 MG PO DAILY, (Reported) Entered as Reported by: SHELLEY IBANEZ on 07/25/17935 Last Action: Converted Fluoxetine HCl (Prozac) 20 Mg Capsule, 20 MG PO DAILY, (Reported) Entered as Reported by: BURT BULL on 12/04/181409 Last Action: Continued Fluticasone Propionate (Fluticasone Propionate) [address] [place].susp, 2 SPRAY NS DAILY, (Reported) Entered as Reported by: SHELLEY IBANEZ on 07/25/17935 Last Action: Continued Fluticasone/Umeclidin/Vilanter (Trelegy Ellipta 200-62.5-25) 1 Each Blst.w.dev, 1 EACH IH, (Reported) Entered as Reported by: DELVIN CANELA on 09/17/21 105 Last Action: Converted Hydrocodone Bit/Acetaminophen (HYDROcodone/APAP 10/325 TABLET) 1 Each Tablet, 1 EACH PO Q6H PRN for PAIN-MILD TO MODERATE, (Reported) Entered as Reported by: VICKI ELLIS on 02/17/18 0957 Last Action: Held Montelukast Sodium (Montelukast Sodium) 10 Mg Tablet, 10 MG PO HS, (Reported) Entered as Reported by: VICKI ELLIS on 11/29/16 160 Last Action: Continued Nicotine (Nicoderm Cq) 1 Each Patch.td24, 21 MG TD DAILY, (Reported) Entered as Reported by: BURT BULL on 12/04/181409 Last Action: Held Ondansetron (Ondansetron Odt) 4 Mg Tab.rapdis, 4 MG PO Q4H PRN for NAUSEA/VOMITING, (Reported) Entered as Reported by: BURT BULL on 12/04/181409 Last Action: Held Pravastatin Sodium (Pravastatin Sodium) 40 Mg Tablet, 40 MG PO HS, (Reported) Entered as Reported by: VICKI ELLIS on 11/29/161608 Last Action: Converted Roflumilast (Daliresp) 500 Mcg Tablet, 500 MCG PO DAILY, (Reported) Entered as Reported by: BURT BULL on 12/04/181409 Last Action: Continued Sucralfate (Carafate) 1 Gm/10 Ml Oral.susp, 1 GM PO ACHS, (Reported) Entered as Reported by: DELVIN CANELA on 09/17/21 105 Last Action: Held Tizanidine HCl (Zanaflex) 4 Mg Capsule, 4 MG PO DAILY PRN for PAIN-MODERATE, (Reported) Entered as Reported by: BURT BULL on 12/04/181409 Last Action: Held Discontinued Medications Amoxicillin/Potassium Clav (Augmentin 875-125 Tablet) 1 Each Tablet, 1 EACH PO BID Discontinued Reason: No Longer Taking Prescribed by: JOSÉ LICEA on 10/10/19 1327 Last Action: Discontinued Apixaban (Eliquis) 5 Mg Tab.ds.pk, 2.5 MG PO BID, (Reported) Discontinued Reason: No Longer Taking Entered as Reported by: BURT BULL on 12/04/181409 Last Action: Discontinued Azithromycin (Azithromycin) 250 Mg Tablet, 250 MG PO UD Discontinued Reason: No Longer Taking Prescribed by: VIVIAN BARRERA on 06/28/191749 Last Action: Discontinued Buspirone HCl (Buspirone HCl) 5 Mg Tablet, 5 MG PO BID, (Reported) Discontinued Reason: Duplicate Order Entered as Reported by: BURT BULL on 12/04/181409 Last Action: Discontinued Cefuroxime Axetil (Cefuroxime) 500 Mg Tablet, 500 MG PO BID Discontinued Reason: No Longer Taking Prescribed by: VIVIAN BARRERA on 06/12/211454 Last Action: Discontinued Cholecalciferol (Vitamin D3) (Vitamin D3) 1,000 Unit Capsule, 1,000 UNIT PO DAILY, (Reported) Discontinued Reason: No Longer Taking Entered as Reported by: VICKI ELLIS on 02/17/18 0957 Last Action: Discontinued Gabapentin (Gabapentin) 300 Mg Capsule, 300 MG PO DAILY, (Reported) Discontinued Reason: No Longer Taking Entered as Reported by: BURT BULL on 12/04/181409 Last Action: Discontinued Mepolizumab (Recombinant) (Nucala) 100 Mg Vial, 100 MG SQ MONTHLY, (Reported) Discontinued Reason: No Longer Taking Entered as Reported by: BURT BULL on 12/04/181409 Last Action: Discontinued Prednisone (Prednisone) 20 Mg Tab, 40 MG PO DAILY Discontinued Reason: No Longer Taking Prescribed by: VIVIAN BARRERA on 06/28/191749 Last Action: Discontinued Prednisone (Prednisone) 20 Mg Tab, 40 MG PO DAILY Discontinued Reason: No Longer Taking Prescribed by: VIVIAN BARRERA on 06/12/211454 Last Action: Discontinued Review of Systems Review of Systems Constitutional: chills; No diaphoresis, No fever; malaise, weakness EENTM: ear pain, throat pain; No blurred vision, No double vision, No nose congestion Respiratory: cough, short of breath, wheezing Cardiovascular: No edema, No palpitations Gastrointestinal: No abdominal pain, No constipation, No diarrhea; loss of appetite, nausea, vomiting Genitourinary: No dysuria, No frequency, No hematuria Musculoskeletal: joint pain (L shoulder pain, R and L hip pain. All secondary to joint degeneration and require surgery according to patient.), muscle pain, muscle cramps Skin: no symptoms reported Psychiatric/Neurological: Headache; Denies Tingling, Denies Tremors, Denies Weakness Hematologic/Lymphatic: No Symptoms Reported Immunological/Allergic: no symptoms reported (KARTHIKLadies Who LaunchSHELLEY AGUIRRE iovation STUDENT) Past Jyntmvz-Nrpvcy-Sebrgq Hx Immunizations Up To Date Tetanus Booster (TDap): Unknown PED Vaccines UTD: No First/Initial COVID19 Vaccinat: november 2020 Second COVID19 Vaccination Enoc: december 2020 (SHELLEY RANDLE iovation STUDENT) Seasonal Allergies Seasonal Allergies: Yes (KARTHIKLadies Who LaunchSHELLEY AGUIRRE iovation STUDENT) Past Medical History Surgery/Hospitalization HX: sx: r middle lobe lumpectomy, hyst, tubal, cervical fusion, breast augmentation pmh: lung ca, copd, deg disk disease, Surgeries: Yes (BUNIONECTOMY, NECK FUSION, BREAST IMPLANTS) Lobectomy, Tubal Ligation Respiratory: Yes ( HX OF LUNG CA, O2 2L NC) Asthma, COPD Currently Using CPAP: No Currently Using BIPAP: No Cardiac: Yes (TACHYCARDIA) Atrial Fibrillation, High Cholesterol Neurological: No 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 Sexually Transmitted Disease: No HIV/AIDS: No Genitourinary: No Gastrointestinal: Yes Gastroesophageal Reflux, Irritable Bowel Musculoskeletal: Yes (joint pain) Arthritis, Chronic Back Pain Endocrine: No HEENT: Yes (READING GLASSES) Loss of Vision: Bilateral Hearing Impairment: Denies Cancer: Yes Lung What Type of Treatment Did You: Chemotherapy, Radiation, Surgical Intervention Psychosocial: Yes Anxiety, Depression Integumentary: No Blood Disorders: No Adverse Reaction/Blood Tranf: No (N/A) (KARTHIKLadies Who LaunchSHELLEY AGUIRRE iovation STUDENT) Family Medical History FH: lung cancer 19 FATHER 19 MOTHER No Pertinent Family Hx (KARTHIKLadies Who LaunchSHELLEY AGUIRRE iovation STUDENT) Physical Exam Vital Signs - First Documented 09/16/21 10:00 FiO2 96 (MARTHA HAZEL MD) Capillary Refill : (JERSHELLEY iovation STUDENT) Height: 5'5.00" Weight: 179lbs. 2.0oz. 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, no motor/sensory deficits, alert, normal mood/affect, oriented x 3 Skin: normal color, warm/dry Lymphatic: no adenopathy (SHELLEY RANDLE MED STUDENT) Focused Exam Lactate Level 09/16/21 12:42: Lactic Acid Level 1.04 (MARTHA HAZEL MD) Lactic Acid Level Laboratory Tests Test 09/16/21 12:42 Lactic Acid Level 1.04 MMOL/L (0.50-2.00) (MARTHA HAZEL MD) Progress/Results/Core Measures Suspected Sepsis SIRS Temperature: Pulse: Respiratory Rate: Laboratory Tests 09/16/21 10:15: White Blood Count 22.1H Blood Pressure / Mean: Laboratory Tests 09/16/21 10:15: Creatinine 0.74, INR Comment 1.1, Platelet Count 214, Total Bilirubin 1.0 (SHELLEY RANDLE MED STUDENT) Results/Orders Lab Results Laboratory Tests Test 09/16/21 10:05 09/16/21 10:15 09/16/21 12:42 Range/Units Influenza Type A (RT-PCR) Not Detected Not Detecte Influenza Type B (RT-PCR) Not Detected Not Detecte SARS-CoV-2 RNA (RT-PCR) Detected H Not Detecte White Blood Count 22.1 H 4.3-11.0 10^3/uL Red Blood Count 4.17 3.80-5.11 10^6/uL Hemoglobin 14.1 11.5-16.0 g/dL Hematocrit 42 35-52 % Mean Corpuscular Volume 102 H 80-99 fL Mean Corpuscular Hemoglobin 34 25-34 pg Mean Corpuscular Hemoglobin Concent 33 32-36 g/dL Red Cell Distribution Width 14.8 H 10.0-14.5 % Platelet Count 214 130-400 10^3/uL Mean Platelet Volume 10.6 9.0-12.2 fL Immature Granulocyte % (Auto) 1 % Neutrophils (%) (Auto) 94 H 42-75 % Lymphocytes (%) (Auto) 3 L 12-44 % Monocytes (%) (Auto) 2 0-12 % Eosinophils (%) (Auto) 0 0-10 % Basophils (%) (Auto) 0 0-10 % Neutrophils # (Auto) 20.9 H 1.8-7.8 10^3/uL Lymphocytes # (Auto) 0.6 L 1.0-4.0 10^3/uL Monocytes # (Auto) 0.3 0.0-1.0 10^3/uL Eosinophils # (Auto) 0.0 0.0-0.3 10^3/uL Basophils # (Auto) 0.1 0.0-0.1 10^3/uL Immature Granulocyte # (Auto) 0.2 H 0.0-0.1 10^3/uL Neutrophils % (Manual) 92 % Lymphocytes % (Manual) 3 % Monocytes % (Manual) 2 % Reactive Lymphocytes 3 % Blood Morphology Comment NORMAL Prothrombin Time 14.6 12.2-14.7 SEC INR Comment 1.1 0.8-1.4 Activated Partial Thromboplast Time 35 24-35 SEC D-Dimer 0.43 0.00-0.49 UG/ML Sodium Level 136 135-145 MMOL/L Potassium Level 3.4 L 3.6-5.0 MMOL/L Chloride Level 104 98-107 MMOL/L Carbon Dioxide Level 21 21-32 MMOL/L Anion Gap 11 5-14 MMOL/L Blood Urea Nitrogen 14 7-18 MG/DL Creatinine 0.74 0.60-1.30 MG/DL Estimat Glomerular Filtration Rate 93 BUN/Creatinine Ratio 19 Glucose Level 110 H 70-105 MG/DL Calcium Level 9.0 8.5-10.1 MG/DL Corrected Calcium 9.2 8.5-10.1 MG/DL Total Bilirubin 1.0 0.1-1.0 MG/DL Aspartate Amino Transf (AST/SGOT) 17 5-34 U/L Alanine Aminotransferase (ALT/SGPT) 19 0-55 U/L Alkaline Phosphatase 67 40-136 U/L C-Reactive Protein High Sensitivity 14.00 H 0.00-0.50 MG/DL Total Protein 7.0 6.4-8.2 GM/DL Albumin 3.8 3.2-4.5 GM/DL Procalcitonin 0.61 H <0.10 NG/ML Lactic Acid Level 1.04 0.50-2.00 MMOL/L (MARTHA HAZEL MD) Micro Results Microbiology 09/16/21 Blood Culture - Preliminary, Resulted Probable Strep Pneumoniae 09/16/21 Blood Culture - Preliminary, Resulted Probable Strep Pneumoniae (MARTHA HAZEL MD) My Orders Orders - MARTHA HAZEL MD Cbc With Automated Diff (09/16/21 10:29) Comprehensive Metabolic Panel (09/16/21 10:29) Blood Culture (09/16/21 10:29) Sputum Culture (09/16/21 10:29) Urinalysis (09/16/21 10:29) Urine Culture (09/16/21 10:29) Protime With Inr (09/16/21 10:29) Partial Thromboplastin Time (09/16/21 10:29) Chest 1 View, Ap/Pa Only (09/16/21 10:29) Ed Iv/Invasive Line Start (09/16/21 10:29) Ed Iv/Invasive Line Start (09/16/21 10:29) Vital Signs Adult Sepsis Patie Q15M (09/16/21 10:29) O2 (09/16/21 10:29) Remove Rings In Anticipation O (09/16/21 10:29) Lactic Acid Analyzer (09/16/21 10:29) Covid 19 Inhouse Test (09/16/21 10:29) Influenza A And B By Pcr (09/16/21 10:29) Isolation Central Supply Req (09/16/21 10:29) Albuterol Inhaler (Albuterol) (09/16/21 14:00) Ns Iv 1000 Ml (Sodium Chloride 0.9%) (09/16/21 10:30) Guaifenesin/Codeine Syrup (Robitussin Ac (09/16/21 10:29) Ondansetron Injection (Zofran Injectio (09/16/21 10:30) Albuterol Inhaler (Albuterol) (09/16/21 10:38) Manual Differential (09/16/21 10:15) Fibrin Degradation Products (09/16/21 11:07) Procalcitonin (Pct) (09/16/21 11:07) Hs C Reactive Protein (09/16/21 11:07) Ct Chest Wo (09/16/21 12:25) Fentanyl Inj (Sublimaze Injection) (09/16/21 12:30) Dexamethasone Injection (Decadron Injec (09/16/21 12:30) Piperacillin Sodium/Tazobactam (Zosyn Vi (09/16/21 12:30) (MARTHA HAZEL MD) Medications Given in ED (MARTHA HAZEL MD) Vital Signs/I&O 09/16/21 09/16/21 09/16/21 10:00 10:00 10:00 Temp 36.4 36.4 Pulse 113 113 Resp 20 20 B/P (MAP) 85/63 85/63 (70) Pulse Ox 97 96 O2 Delivery Nasal Cannula Room Air Nasal Cannula O2 Flow Rate 2.00 2.00 FiO2 96 (MARTHA HAZEL MD) Vital Signs/I&O Capillary Refill : (SHELLEY RANDLE MED STUDENT) Progress Note : Time: 13:07 Progress Note 61-year-old female presents with COVID-like symptoms as well as concern for aspiration 1 week ago. Feels short of breath, productive bloody sputum with cough. No fevers. Labs have been reviewed and are pertinent for leukocytosis, elevated procalcitonin and CRP. Large right-sided infiltrate and COVID positive by PCR. She was initially a little bit hypotensive with blood pressures in the low 90s over 50s. She received a liter of fluids and is now in the 122/67 range still slightly tachycardic at 112. I have discussed the case with Dr. Morfin on for the hospitalist service. He would like her to be placed on the medical floor, CT without contrast to evaluate her lungs as she has a history of lung cancer. Zosyn antibiotics. Decadron for the COVID. Patient is feeling a little bit better she has had some cough medicine and pain medications. She continues to cough up a little bit of bloody sputum. (MARTHA HAZEL MD) Departure Communication (Admissions) Time/Spoke to Admitting Phy: 12:[address] Morfin; would like CT Chest without; connie; becky (MARTHA HAZEL MD) Impression Primary Impression: COVID-19 Additional Impressions: Aspiration pneumonia Qualified Codes: J69.0 - Pneumonitis due to inhalation of food and vomit COPD (chronic obstructive pulmonary disease) Qualified Codes: J44.0 - Chronic obstructive pulmonary disease with (acute) lower respiratory infection Hemoptysis History of lung cancer Disposition: ADMITTED INPATIENT Condition: Stable Admissions Decision to Admit Reason: Admit from ER (General) Decision to Admit/Date: Sep 16, 2021 Time/Decision to Admit Time: 12:32 (MARTHA HAZEL MD) Departure-Patient Inst. Referrals: SHELLEY ROSENBERG DO (PCP/Family) Primary Care Physician Verification and Attestation of Medical Student E/M Service A medical student performed and documented this service in my presence. I reviewed and verified all information documented by the medical student and made modifications to such information, when appropriate. I personally performed the physical exam and medical decision making. Martha Hazel, Sep 16, 2021,13:09 (MARTHA HAZEL MD) SHELLEY RANDLE MED STUDENT Sep 16, 2021 10:59 MARTHA HAZEL MD Sep 16, 2021 12:32
[2021-09-16 11:38] LABS: LYMPHOCYTES % (MANUAL) 3 %; MONOCYTES % (MANUAL) 2 %; NEUTROPHILS % (MANUAL) 92 %; RBC MORPH NORMAL; REACTIVE LYMPHOCYTES 3 %
--- NOTE | 2021-09-16 11:48 | Diagnostic Imaging Report ---
INDICATION: Shortness of breath and cough. COMPARISON made with prior examination 06/12/2021 FINDINGS: The heart size is normal. There is a right basilar consolidation. There is no pleural effusion or pneumothorax. The mediastinum is unremarkable. IMPRESSION: Extensive right basilar pneumonia. Dictated by: Dictated on workstation # [id number]
[2021-09-16] MEDS ORDERED: fentaNYL INJ 100 MCG/2 ML AMP IVP ONE (12:30)
[2021-09-16] MEDS ORDERED: PIPERACILLIN SODIUM/TAZOBACTAM 4.5 GM in NS (IVPB) 100 ML IV ONE (12:30)
--- NOTE | 2021-09-16 13:41 | Diagnostic Imaging Report ---
PROCEDURE: CT chest without contrast. TECHNIQUE: Multiple contiguous axial images were obtained through the chest without the use of intravenous contrast. Auto Exposure Controls were utilized during the CT exam to meet ALARA standards for radiation dose reduction. INDICATION: Shortness breath. Patient is COVID 19 positive. Bilateral breast implants are noted. Right breast implant appears collapsed, consistent with implant rupture. This is new since the prior CT from 12/03/2019. No pericardial fluid is identified. There is no pleural fluid identified. There are emphysematous changes in both lungs. There is extensive airspace consolidation involving the right lower lobe consistent with pneumonia. Left lung is clear. Upper abdomen is unremarkable. IMPRESSION: 1. Left breast implant rupture since prior CT of 12/03/2019. 2. Extensive right lower lobe pneumonia. Dictated by: Dictated on workstation # [id number]
[2021-09-16] MEDS ORDERED: RT-ALBUTEROL HFA 8.5 GM INHALER IH SCH (14:00)
[2021-09-16 15:00] VITALS: BP 94/56
[2021-09-16] MEDS ORDERED: ONDANSETRON 4 MG/2 ML (SDV) Z0FRAN IV PRN (15:15)
[2021-09-16] MEDS ORDERED: ACETAMINOPHEN 325 MG TABLET PO PRN (15:15)
[2021-09-16] MEDS ORDERED: RT-ALBUTEROL HFA 8.5 GM INHALER IH PRN (16:00)
[2021-09-16] MEDS: NS IV 1000 ML 1,000 ML IV SCH ×2 (16:00→22:48)
[2021-09-16] MEDS: PIPERACILLIN SODIUM/TAZOBACTAM 4.5 GM in NS (IVPB) 100 ML IV SCH (18:24)
[2021-09-16] MEDS: RT-ALBUTEROL HFA 8.5 GM INHALER IH SCH ×2 (18:45→22:39)
[2021-09-16 20:00] VITALS: BP 99/62
[2021-09-17] VITALS (7 sets, daily range): BP systolic 89–104; BP diastolic 59–69
[2021-09-17] MEDS: RT-ALBUTEROL HFA 8.5 GM INHALER IH SCH ×6 (02:22→21:52)
[2021-09-17] MEDS: PIPERACILLIN SODIUM/TAZOBACTAM 4.5 GM in NS (IVPB) 100 ML IV SCH ×3 (02:59→17:40)
[2021-09-17 06:51] LABS: BASOPHILS # (AUTO) 0.1 10^3/uL (0.0-0.1); BASOPHILS % (AUTO) 0 % (0-10); EOSINOPHILS % (AUTO) 0 % (0-10); HEMATOCRIT 38 % (35-52); HEMOGLOBIN 12.5 g/dL (11.5-16.0); LYMPHOCYTES # (AUTO) 0.6 10^3/uL (1.0-4.0); LYMPHOCYTES % (AUTO) 2 % (12-44); MEAN CORPUSCULAR HEMOGLOBIN 34 pg (25-34); MEAN CORPUSCULAR HGB CONC 33 g/dL (32-36); MEAN CORPUSCULAR VOLUME 103 fL (80-99); MEAN PLATELET VOLUME 10.9 fL (9.0-12.2); MONOCYTES # (AUTO) 0.6 10^3/uL (0.0-1.0); MONOCYTES % (AUTO) 2 % (0-12); NEUTROPHILS # (AUTO) 24.3 10^3/uL (1.8-7.8); NEUTROPHILS % (AUTO) 94 % (42-75); PLATELET COUNT 184 10^3/uL (130-400); WHITE BLOOD COUNT 25.9 10^3/uL (4.3-11.0)
[2021-09-17] MEDS: NS IV 1000 ML 1,000 ML IV SCH ×2 (08:09→16:29)
[2021-09-17 08:59] LABS: POTASSIUM 3.9 MMOL/L (3.6-5.0)
[2021-09-17 09:04] LABS: CREATININE SERUM 0.7 MG/DL (0.60-1.30)
[2021-09-17] MEDS ORDERED: DIAZ5TAB PO (10:55)
[2021-09-17] MEDS ORDERED: DICL20GE TP (10:55)
[2021-09-17] MEDS ORDERED: SUCR1ORA5 PO (10:55)
[2021-09-17] MEDS ORDERED: FLUT1BLS15 IH (10:55)
[2021-09-17] MEDS ORDERED: DIAZEPAM 5 MG (VALIUM) TABLET PO PRN (13:00)
[2021-09-17] MEDS ORDERED: polyethylene glycoL POWDER 17 GM (MIRALAX) PACK PO PRN (13:00)
[2021-09-17] MEDS ORDERED: diphenhydrAMINE 25 MG TAB (BENADRYL) PO PRN (13:00)
[2021-09-17] MEDS ORDERED: ACETAMINOPHEN 325 MG TABLET PO PRN (13:00)
[2021-09-17] MEDS ORDERED: ANTACID SUSP 30 ML UDC (MYLANTA) PO PRN (13:00)
[2021-09-17] MEDS ORDERED: ONDANSETRON 4 MG (ZOFRAN) ORAL DISSOLVE TAB PO PRN (13:00)
[2021-09-17] MEDS ORDERED: ONDANSETRON 4 MG/2 ML (SDV) Z0FRAN IV PRN (13:00)
[2021-09-17] MEDS ORDERED: ENOXAPARIN 40 MG/0.4 ML (LOVENOX) SYR SC SCH (13:00)
[2021-09-17] MEDS ORDERED: MELATONIN 3 MG TABLET PO PRN (13:00)
--- NOTE | 2021-09-17 13:29 | History & Physical-Hospitalist ---
RASHMI VARGAS A MED STUDENT 09/17/21 1329: History of Present Illness HPI/Chief Complaint This is a 61 yo female who presented yesterday d/t SOA and coughing up blood. Pt has past medical hx of COPD, Lung cancer with Right lobectomy. Pt reports two weeks ago she started to feel ill, so she took two at home covid tests, which were negative. Last she was eating spicy ramen and aspirated. Saturday she started to get chills and cough up blood, so yesterday she came to the ED. Pt was admitted for RLL pneumonia and sepsis. Today, pt feels worse, as the pain in the Right side of her chest has worsened. Pt reports she is still coughing up mucus that is orange and foamy. Pt states she has SOA, cough, headache, nausea, neck and back pain, urinary frequency and urgency with dark urine today. Pt denies fever, chills, chest pain other than related to coughing, heart palpitations, vomiting, diarrhea or constipation. Pt reports she lives at home with her son and grandchildren who have been exposed to someone with COVID. Date Seen 09/17/21 Time Seen by a Provider: 09:50 Attending Physician Herman Palencia MD PCP Brit Anderson DO Referring Physician Date of Admission Sep 16, 2021 at 12:46 Home Medications & Allergies Home Medications Reviewed patient Home Medication Reconciliation performed by pharmacy medication reconciliations robotic technician and/or nursing. Patients Allergies have been reviewed. Allergies Allergies Coded Allergies No Known Drug Allergies (Unverified12/04/18) Past Bewvmzz-Ryimxm-Oukitf Hx Patient Social History Tobacco Use?: Yes Tobacco type used: Cigarettes Smoking Status: Current Someday Smoker Use of E-Cig and/or Vaping dev: No Substance use?: No Alcohol Use?: Yes Alcohol type: Hard Liquor Alcohol Frequency: Couple times a week Pt feels they are or have been: No Immunizations Up To Date Date of Influenza Vaccine: Jun 02, 2018 First/Initial COVID19 Vaccinat: 12/2020 Second COVID19 Vaccination Enoc: 01/2021 Tetanus Booster (TDap): Unknown Hepatitis A: Yes Hepatitis B: Yes PED Vaccines UTD: No Date of Pneumonia Vaccine: Oct 24, 2013 Seasonal Allergies Seasonal Allergies: Yes Current Status status: No Advance Directives: No Communicates: Verbally Primary Language: Korean Preferred Spoken Language: Korean Is interpretation needed?: No Implanted or Applied Medical D: None Past Medical History Surgeries: Lobectomy, Tubal Ligation Asthma, COPD Currently Using CPAP: No Currently Using BIPAP: No Atrial Fibrillation, 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 Cholesterol 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 Sexually Transmitted Disease: No HIV/AIDS: No Gastroesophageal Reflux, Irritable Bowel Arthritis, Chronic Back Pain Loss of Vision: Bilateral Hearing Impairment: Denies Lung What Type of Treatment Did You: Chemotherapy, Radiation, Surgical Intervention Anxiety, Depression Blood Disorders: No Adverse Reaction/Blood Tranf: No (N/A) Family Medical History FH: lung cancer 19 FATHER 19 MOTHER No Pertinent Family Hx Review of Systems Constitutional: No chills, No dizziness, No fever EENTM: no symptoms reported Respiratory: cough, hemoptysis (orange today), short of breath Gastrointestinal: abdominal pain (Right inguinal pain); No constipation, No diarrhea; nausea; No vomiting Genitourinary: No dysuria; frequency, other (urinary urgency) Musculoskeletal: back pain, neck pain Skin: no symptoms reported Psychiatric/Neurological: Headache Physical Exam Physical Exam Vital Signs Vital Signs - First Documented 09/16/21 10:00 FiO2 96 Capillary Refill : Less Than 3 Seconds Height, Weight, BMI Height: 5'5.00" Weight: 179lbs. 2.0oz. 81.850443nf; 27.91 BMI Method:Stated General Appearance: No Apparent Distress, WD/WN HEENT: PERRL/EOMI Respiratory: Chest Non Tender, No Accessory Muscle Use, No Respiratory Distress, Crackles, Wheezing (bilateral lower lobes) Cardiovascular: No Murmur, Tachycardia Gastrointestinal: Normal Bowel Sounds, Soft, Tenderness (RLQ) Extremity: Non Tender, No Pedal Edema Neurologic/Psychiatric: Alert, Oriented x3, Normal Mood/Affect Skin: Normal Color, Warm/Dry Results Results/Procedures Labs Laboratory Tests 09/16/21 10:15 09/17/21 06:24 Patient resulted labs reviewed. Assessment/Plan Admission Diagnosis Sepsis d/t pneumonia Reason for Inpatient Admission: Sepsis d/t pneumonia Assessment and Plan Sepsis d/t pneumonia Bacteremia Acute respiratory failure with hypoxia COVID 19 infection Aspiration COPD Hypokalemia Sepsis d/t pneumonia -Zosyn -NaCl at 125ml/hr Bacteremia -Blood cultures showed strep pneumo -Zosyn Acute respiratory failure with hypoxia -Currently on 1L NC with 95% O2 COVID 19 infection -Decadron Aspiration COPD -Duoneb and Albuterol -MAT protocol initiated Mild Hypokalemia Hx of lung cancer with lobectomy Chronic Pain -Lortab every 6 hours HERMAN PALENCIA MD 09/17/212027: History of Present Illness Source: patient Exam Limitations: no limitations Time Seen by a Provider: 12:40 Past Dcjcuov-Tyzkrl-Ubpiqs Hx Past Medical History Surgeries: Lobectomy COPD Atrial Fibrillation, High Cholesterol Gastroesophageal Reflux Lung Did You Recieve Any Treatments: Yes What Type of Treatment Did You: Surgical Intervention Family Medical History FH: lung cancer 19 FATHER 19 MOTHER Physical Exam Physical Exam General Appearance: No Apparent Distress, WD/WN HEENT: PERRL/EOMI, Pharynx Normal Neck: Normal Inspection, Supple Respiratory: No Respiratory Distress, Crackles, Decreased Breath Sounds Cardiovascular: Regular Rate, Rhythm, No Edema, No Murmur Gastrointestinal: Normal Bowel Sounds, Non Tender, Soft Extremity: Normal Inspection, Non Tender, No Pedal Edema Neurologic/Psychiatric: Alert, Oriented x3, No Motor/Sensory Deficits, Normal Mood/Affect Skin: Normal Color, Warm/Dry Results Results/Procedures Imaging: Reviewed Imaging Report Assessment/Plan Admission Diagnosis Sepsis due to pneumonia and bacteremia Admission Status: Inpatient Order (span 2 midnights) Reason for Inpatient Admission: IV antibiotics Assessment and Plan Admitted with sepsis due to pneumonia and likely Strep pneumo bacteremia. Also with COVID-19. Started IV antibiotics and steroids. Minimal oxygen requirement. Monitor closely. Diagnosis/Problems Diagnosis/Problems (1) Sepsis due to pneumonia Status: Acute (2) Bacteremia due to Streptococcus pneumoniae Status: Acute (3) Acute respiratory failure with hypoxia Status: Acute (4) COVID-19 Status: Acute (5) COPD (chronic obstructive pulmonary disease) Status: Chronic Qualifiers: COPD type: COPD with acute lower respiratory infection Qualified Codes: J44.0 - Chronic obstructive pulmonary disease with (acute) lower respiratory infection (6) Smoker Status: Chronic (7) S/P lobectomy of lung Status: Chronic (8) History of lung cancer Status: Acute Supervisory-Addendum Brief Verification & Attestation Participated in pt care: history, MDM, physical Personally performed: exam, history, MDM, supervision of care Care discussed with: Medical Student Procedures: n/a Results interpretation: Verified all documentation A medical student performed and documented this service in my presence. I reviewed and verified all information documented by the medical student and made modifications to such information, when appropriate. I personally performed the physical exam and medical decision making. RASHMI VARGAS MED STUDENT Sep 17, 2021 13:29 HERMAN PALENCIA MD Sep 17, 2021 20:28
[2021-09-17] MEDS: guaiFENesin/DM (ROBITUSSIN DM) 10 ML UDC PO PRN (16:14)
[2021-09-17] MEDS ORDERED: UMECLIDINIUM BROMIDE (INCRUSE ELLIPTA) 7'S IH SCH (16:29)
[2021-09-17] MEDS: FLUoxetine HCL 20 MG (PROzac) CAP PO SCH (16:29)
[2021-09-17] MEDS: ROFLUMILAST 500 MCG TAB (DALIRESP) PO SCH (16:29)
[2021-09-17] MEDS: ESTRADIOL 1 MG TAB (ESTRACE) PO SCH (16:29)
[2021-09-17] MEDS ORDERED: RT--FLUTICASONE/SALMETEROL 232-14 (AIRDUO RespiCLICK) IH SCH (16:30)
[2021-09-17] MEDS: RT--FLUTICASONE/SALMETEROL 232-14 (AIRDUO RespiCLICK) IH SCH (18:40)
[2021-09-17] MEDS ORDERED: MONTELUKAST 10 MG (SINGULAIR) TAB PO SCH (21:00)
[2021-09-17] MEDS ORDERED: SIMvastatin 20 MG (ZOCOR) TAB PO SCH (21:00)
[2021-09-18] MEDS: guaiFENesin/DM (ROBITUSSIN DM) 10 ML UDC PO PRN ×2 (00:08→11:05)
[2021-09-18] MEDS: RT-ALBUTEROL HFA 8.5 GM INHALER IH SCH ×3 (02:37→11:05)
[2021-09-18] MEDS: NS IV 1000 ML 1,000 ML IV SCH ×2 (03:19→08:19)
[2021-09-18] MEDS: PIPERACILLIN SODIUM/TAZOBACTAM 4.5 GM in NS (IVPB) 100 ML IV SCH ×2 (03:21→10:57)
[2021-09-18 03:35] VITALS: BP 146/90
[2021-09-18 06:37] LABS: BASOPHILS % (AUTO) 0 % (0-10); EOSINOPHILS % (AUTO) 0 % (0-10); HEMATOCRIT 37 % (35-52); HEMOGLOBIN 11.8 g/dL (11.5-16.0); LYMPHOCYTES % (AUTO) 6 % (12-44); MEAN CORPUSCULAR HEMOGLOBIN 33 pg (25-34); MEAN CORPUSCULAR HGB CONC 32 g/dL (32-36); MEAN CORPUSCULAR VOLUME 103 fL (80-99); MEAN PLATELET VOLUME 10.9 fL (9.0-12.2); MONOCYTES # (AUTO) 0.3 10^3/uL (0.0-1.0); MONOCYTES % (AUTO) 2 % (0-12); NEUTROPHILS % (AUTO) 91 % (42-75); PLATELET COUNT 176 10^3/uL (130-400); WHITE BLOOD COUNT 15.5 10^3/uL (4.3-11.0)
[2021-09-18 06:52] LABS: CALCIUM 8.9 MG/DL (8.5-10.1); CREATININE SERUM 0.68 MG/DL (0.60-1.30); POTASSIUM 4.1 MMOL/L (3.6-5.0)
[2021-09-18] MEDS ORDERED: UMECLIDINIUM BROMIDE (INCRUSE ELLIPTA) 7'S IH SCH (08:00)
[2021-09-18] MEDS: RT--FLUTICASONE/SALMETEROL 232-14 (AIRDUO RespiCLICK) IH SCH (08:03)
[2021-09-18 08:09] VITALS: BP 108/70
[2021-09-18] MEDS ORDERED: PANTOPRAZOLE 40 MG (PROTONIX) TAB PO SCH (09:00)
[2021-09-18] MEDS ORDERED: ACETYLCYSTEINE 600 MG PO SCH (09:00)
[2021-09-18] MEDS ORDERED: [UNRECOGNIZED DRUG - OTHER] HHN SCH (09:00)
[2021-09-18] MEDS ORDERED: LORATADINE (CLARITIN) 10 MG TAB PO SCH (09:00)
[2021-09-18] MEDS ORDERED: FLUTICASONE NASAL SPRAY (FLONASE) 16 GM BTL NS SCH (09:00)
[2021-09-18] MEDS ORDERED: NON-FORMULARY MEDICATION 1 EA EA (Fexofenadine HCl 180 MG) PO SCH (09:00)
[2021-09-18] MEDS: ESTRADIOL 1 MG TAB (ESTRACE) PO SCH (09:06)
[2021-09-18] MEDS: FLUoxetine HCL 20 MG (PROzac) CAP PO SCH (09:06)
[2021-09-18] MEDS: ROFLUMILAST 500 MCG TAB (DALIRESP) PO SCH (09:06)
[2021-09-18] MEDS ORDERED: CYCL5.5D OU (10:05)
[2021-09-18] MEDS ORDERED: ASPI-1238 PO (10:05)
[2021-09-18] MEDS ORDERED: ACET-2267 PO (10:10)
[2021-09-18] MEDS ORDERED: IBUP-2473 PO (10:10)
[2021-09-18] MEDS ORDERED: OLOP5DRO24 OU (10:36)
[2021-09-18 11:28] VITALS: BP 114/74
[2021-09-18] MEDS ORDERED: NICOTINE 14 MG (NICODERM) PATCH TD SCH (11:30)
--- NOTE | 2021-09-18 12:03 | Discharge Summary ---
Diagnosis/Chief Complaint Date of Admission Sep 16, 2021 at 12:46 Date of Discharge Discharge Date: Sep 18, 2021 Discharge Time: 08:00 Admission Diagnosis Sepsis due to pneumonia and bacteremia Primary Care Brit Anderson DO Discharge Diagnosis Sepsis d/t pneumonia Bacteremia (1) Sepsis due to pneumonia Status: Acute Assessment & Plan: Resolved, not requiring oxygen. (2) Bacteremia due to Streptococcus pneumoniae Status: Acute Assessment & Plan: Augmentin PO Will call and switch if culture shows resistance to this antibiotic. (3) Acute respiratory failure with hypoxia Status: Acute Assessment & Plan: Currently not requiring oxygen (4) COVID-19 Status: Acute Assessment & Plan: Decadron given Not requiring oxygen (5) COPD (chronic obstructive pulmonary disease) Status: Chronic Assessment & Plan: Continue home medications (6) Smoker Status: Chronic Assessment & Plan: Pt given nicotine patch Encouraged abstinence (7) S/P lobectomy of lung Status: Chronic (8) History of lung cancer Status: Chronic Discharge Summary Discharge Physical Exam Allergies: Coded Allergies: No Known Drug Allergies (Unverified , 12/04/18) Vitals & I&Os Vital Signs Date Time Temp Pulse Resp B/P (MAP) Pulse Ox O2 Delivery O2 Flow Rate FiO2 09/18/21 11:28 36.4 81 18 114/74 (87) 97 Room Air 09/18/21 08:27 0.00 09/16/21 10:00 96 General Appearance: No Apparent Distress, WD/WN HEENT: PERRL/EOMI Respiratory: Chest Non Tender, No Accessory Muscle Use, No Respiratory Distress, Crackles, Decreased Breath Sounds Cardiovascular: Regular Rate, Rhythm, No Murmur Gastrointestinal: Normal Bowel Sounds, Non Tender, Soft Extremity: Normal Capillary Refill, Non Tender, No Pedal Edema Skin: Normal Color, Warm/Dry Neurologic/Psychiatric: Alert, Oriented x3, Normal Mood/Affect Hospital Course This is a 61 yo female who was admitted for sepsis d/t pneumonia. Pt presented on 09/16/21 d/t SOA and coughing up blood. Pt has past medical hx of COPD, Lung cancer with Right lobectomy. Pt tested postive for COVID-19 on admission. Pt stated she aspirated on spicy ramen several days ago and had felt SOA since. Pt's blood cultures showed strep pneumo. She was treated with Zosyn and decadron. Pt was initially on 1.5L NC, but currently requires no oxygen. Will start pt on Augmentin, as it should cover strep pneumo. If culture comes back resistant to augmentin, will switch antibiotic. Labs (last 24 hrs) Laboratory Tests 09/18/21 06:08: White Blood Count 15.5H, Red Blood Count 3.53L, Hemoglobin 11.8, Hematocrit 37, Mean Corpuscular Volume 103H, Mean Corpuscular Hemoglobin 33, Mean Corpuscular Hemoglobin Concent 32, Red Cell Distribution Width 15.1H, Platelet Count 176, Mean Platelet Volume 10.9, Immature Granulocyte % (Auto) 1, Neutrophils (%) (Auto) 91H, Lymphocytes (%) (Auto) 6L, Monocytes (%) (Auto) 2, Eosinophils (%) (Auto) 0, Basophils (%) (Auto) 0, Neutrophils # (Auto) 14.0H, Lymphocytes # (Auto) 1.0, Monocytes # (Auto) 0.3, Eosinophils # (Auto) 0.0, Basophils # (Auto) 0.0, Immature Granulocyte # (Auto) 0.1, Sodium Level 139, Potassium Level 4.1, Chloride Level 109H, Carbon Dioxide Level 21, Anion Gap 9, Blood Urea Nitrogen 18, Creatinine 0.68, Estimat Glomerular Filtration Rate 100, BUN/Creatinine Ratio 26, Glucose Level 112H, Calcium Level 8.9 Microbiology 09/16/21 Blood Culture - Preliminary, Resulted Streptococcus pneumoniae Patient resulted labs reviewed. Pending Labs Laboratory Tests 09/18/21 06:08: White Blood Count 15.5, Red Blood Count 3.53, Hemoglobin 11.8, Hematocrit 37, Mean Corpuscular Volume 103, Mean Corpuscular Hemoglobin 33, Mean Corpuscular Hemoglobin Concent 32, Red Cell Distribution Width 15.1, Platelet Count 176, Mean Platelet Volume 10.9, Immature Granulocyte % (Auto) 1, Neutrophils (%) (Auto) 91, Lymphocytes (%) (Auto) 6, Monocytes (%) (Auto) 2, Eosinophils (%) (Auto) 0, Basophils (%) (Auto) 0, Neutrophils # (Auto) 14.0, Lymphocytes # (Auto) 1.0, Monocytes # (Auto) 0.3, Eosinophils # (Auto) 0.0, Basophils # (Auto) 0.0, Immature Granulocyte # (Auto) 0.1, Sodium Level 139, Potassium Level 4.1, Chloride Level 109, Carbon Dioxide Level 21, Anion Gap 9, Blood Urea Nitrogen 18, Creatinine 0.68, Estimat Glomerular Filtration Rate 100, BUN/Creatinine Ratio 26, Glucose Level 112, Calcium Level 8.9 Imaging: Reviewed Imaging Report Discharge Home Medications: Active Scripts Active Reported Pataday Once Daily Relief (Olopatadine HCl) 5 Ml Drops 1 Drop OU DAILY PRN Ibuprofen 200 Mg Tablet 400 Mg PO DAILY PRN TAKES 2 (200MG) TAB Tylenol Extra Strength (Acetaminophen) 500 Mg Tablet 500 Mg PO DAILY PRN Aspirin EC (Aspirin) 81 Mg Tablet.dr 81 Mg PO DAILY Restasis Multidose (Cyclosporine) 5.5 Ml Drops 1 Drop OU DAILY PRN Voltaren Arthritis Pain (Diclofenac Sodium) 20 Gm Gel..gram. 1 Applic TP PRN PRN Valium (Diazepam) 5 Mg Tablet 5 Mg PO BID PRN Trelegy Ellipta 200-62.5-25 (Fluticasone/Umeclidin/Vilanter) 1 Each Blst.w.dev 1 Each IH Daliresp (Roflumilast) 500 Mcg Tablet 500 Mcg PO DAILY Prozac (Fluoxetine HCl) 20 Mg Capsule 20 Mg PO DAILY Ondansetron Odt (Ondansetron) 4 Mg Tab.rapdis 4 Mg PO Q4H PRN Estradiol Tablet (Estradiol) 1 Mg Tablet 1.5 Mg PO DAILY TAKES 1 AND 1/2 OF A 1MG TAB Dexilant (Dexlansoprazole) 60 Mg Cap.dr.bp 60 Mg PO DAILY Nac (Acetylcysteine) 600 Mg Capsule 600 Mg PO DAILY HYDROcodone/APAP 10/325 TABLET (Acetaminophen/Hydrocodone Bitart) 1 Each Tablet 1 Each PO Q6H PRN Fluticasone Propionate 16 Gm Era.susp 2 Era NS DAILY Ventolin Hfa (Albuterol Sulfate) 18 Gm Hfa.aer.ad 2 Puff INH Q4H PRN Fexofenadine HCl 180 Mg Tablet 180 Mg PO DAILY Cartia Xt (Diltiazem HCl) 240 Mg Cap.er.24h 240 Mg PO DAILY Montelukast Sodium 10 Mg Tablet 10 Mg PO HS Pravastatin Sodium 40 Mg Tablet 40 Mg PO HS Instructions to patient/family Please see electronic discharge instructions given to patient. Problem Qualifiers (1) COPD (chronic obstructive pulmonary disease): COPD type: COPD with acute lower respiratory infection Qualified Codes: J44.0 - Chronic obstructive pulmonary disease with (acute) lower respiratory infection RASHMI VARGAS MED STUDENT Sep 18, 2021 12:03
[2021-09-18] MEDS ORDERED: AMOX-358 PO (12:23)
[2021-09-18 14:33] VITALS: BP 114/74
[2021-09-19] MEDS ORDERED: ESTRADIOL 1 MG TAB (ESTRACE) PO SCH (09:00)
== END 2021-09-18 14:20 | disposition home or self-care (01) | DRG 871 ==
LOC: EDUNIT# 09:51 → ER 09:53 → 4TH 12:46
PROVIDERS: ADMIT Internal Medicine; ATTEND Internal Medicine
DX: A40.3 Sepsis due to Streptococcus pneumoniae (principal); J18.9 Pneumonia, unspecified organism; U07.1 COVID-19; J96.01 Acute respiratory failure with hypoxia; J44.0 Chronic obstructive pulmonary disease with (acute) lower respiratory infection; F17.210 Nicotine dependence, cigarettes, uncomplicated; Z90.2 Acquired absence of lung [part of]; Z85.118 Personal history of other malignant neoplasm of bronchus and lung; I48.91 Unspecified atrial fibrillation; E78.00 Pure hypercholesterolemia, unspecified; K21.9 Gastro-esophageal reflux disease without esophagitis; K58.9 Irritable bowel syndrome, unspecified; M19.90 Unspecified osteoarthritis, unspecified site; G89.29 Other chronic pain; M54.9 Dorsalgia, unspecified; F41.9 Anxiety disorder, unspecified; F32.A Depression, unspecified; Z92.21 Personal history of antineoplastic chemotherapy; Z92.3 Personal history of irradiation; E87.6 Hypokalemia
CPT/HCPCS: 36415; 71045; 71250; 80048; 80053; 83605; 83735; 84145; 85007; 85025; 85027; 85379; 85610; 85730; 86141; 87040; 87077; 87181; 87184; 87636; 94640; 94760; 96361; 96365; 96375

== ENCOUNTER → 2021-12-20 | Outpatient (CLI) | payer MEDICARE, MEDICAID ==
[~2021-12-20] MED LIST changes: +ACET-2267 PO; +ASPI-1238 PO; +CYCL5.5D OU; +DIAZ5TAB PO; +DICL20GE TP; -FEXO-46 PO; +FLUT1BLS15 IH; +IBUP-2473 PO; +NF-ALLE180 PO; +OLOP5DRO24 OU
== END ==
LOC: CARD 10:30
PROVIDERS: ATTEND Internal Medicine Cardiovascular Disease
DX: R06.09 Other forms of dyspnea (principal)
CPT/HCPCS: 93306

== ENCOUNTER → 2022-01-17 | Outpatient (CLI) | payer MEDICARE, MEDICAID ==
[~2022-01-17] MED LIST changes: +RT-ALBUTEROL SULF 2.5 MG/3 ML PRE-MIX VIAL INH ONE
== END ==
LOC: RT 10:32
PROVIDERS: ATTEND Internal Medicine Critical Care Medicine
DX: J44.9 Chronic obstructive pulmonary disease, unspecified (principal)
CPT/HCPCS: 94060; 94621; 94726; 94729

== ENCOUNTER 2022-06-12 08:16 | Day surgery (SDC) | payer MEDICARE, MEDICAID ==
[~2022-06-12] VITALS: Ht 167.6 cm; Wt 78.5 kg
[~2022-06-12 08:16] MED LIST changes: -MOME13HF INH; +MOME13HF11 INH; -RT-ALBUTEROL SULF 2.5 MG/3 ML PRE-MIX VIAL INH ONE
[2022-06-12] MEDS ORDERED: LIDOCAINE 1% INJ 30 ML (XYLOCAINE) VIAL ONE (08:29)
[2022-06-12] MEDS ORDERED: LIDOCAINE 1% INJ 30 ML (XYLOCAINE) VIAL INJ ONE (08:30)
[2022-06-12 08:44] VITALS: BP 114/87
--- NOTE | 2022-06-12 19:28 | OPERATIVE REPORT ---
DATE OF SERVICE: 06/12/2022 PREOPERATIVE DIAGNOSES: History of palpitations and paroxysmal atrial fibrillation. POSTOPERATIVE DIAGNOSES: History of palpitations and paroxysmal atrial fibrillation. PROCEDURE PERFORMED: Implantable loop recorder implantation. DESCRIPTION OF PROCEDURE: Implantable loop recorder implantation was carried out after having obtained an informed consent. [facility] The left prepectoral area was prepared and draped in the usual sterile fashion. Lidocaine 1% was used for local anesthesia. The tools provided were the Friendemic LINQ II device were used to make a pocket anterior to the fourth intercostal space into which the loop recorder was placed and the wound edges were closed using Dermabond and Steri-Strips. She tolerated the procedure well. Job ID: [id number] DocumentID: [id number] Dictated Date: 06/12/2022 11:02:28 Educational Psychology Teacher Date: 06/12/2022 19:27:39 Dictated By: GIBRAN LADD MD, MA, FACP, FACC,
== END 2022-06-12 11:13 | disposition home or self-care (01) ==
LOC: CATH 08:16
PROVIDERS: ATTEND Internal Medicine Cardiovascular Disease
DX: I48.0 Paroxysmal atrial fibrillation (principal); E66.9 Obesity, unspecified; Z68.27 Body mass index [BMI] 27.0-27.9, adult; F17.210 Nicotine dependence, cigarettes, uncomplicated; C34.91 Malignant neoplasm of unspecified part of right bronchus or lung; K29.50 Unspecified chronic gastritis without bleeding; K58.9 Irritable bowel syndrome, unspecified; J44.9 Chronic obstructive pulmonary disease, unspecified; J70.0 Acute pulmonary manifestations due to radiation; Z79.899 Other long term (current) drug therapy
CPT/HCPCS: 33285; C1764

== ENCOUNTER 2022-12-06 17:12 | Emergency (ER) | payer MEDICARE, MEDICAID ==
[~2022-12-06] VITALS: Ht 165 cm; Wt 78.0 kg
[~2022-12-06 17:12] MED LIST changes: +MOME13HF12 IH; -MOME13HF2 IH
[2022-12-06 17:49] LABS: BILIRUBIN,URINE NEGATIVE (NEGATIVE); CLARITY,URINE CLEAR; COLOR,URINE YELLOW; GLUCOSE, URINE (UA) NEGATIVE (NEGATIVE); KETONES,URINE NEGATIVE (NEGATIVE); LEUKOCYTE ESTERASE ,URINE NEGATIVE (NEGATIVE); NITRITE,URINE NEGATIVE (NEGATIVE); PROTEIN,URINE NEGATIVE (NEGATIVE)
[2022-12-06 18:03] LABS: BACTERIA,URINE TRACE /HPF; RBC,URINE RARE /HPF; SQUAMOUS EPITHELIAL CELL,UR 0-2 /HPF
--- NOTE | 2022-12-06 18:26 | ED GU-Female ---
General Chief Complaint: - 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 Stated Complaint: MAYBE UTI Nursing Triage Note: PT STATES URINARY AND BOWEL ISSUES FOR ABOUT A YR. FEELS LIKE THERE IS SOMETHING PUSHING INTO HER VAGINA. WEAKNESS IN LEGS Source: patient Exam Limitations: no limitations History of Present Illness Date Seen by Provider: Dec 06, 2022 Time Seen by Provider: 18:23 Initial Comments Patient is a 62-year-old female who presents to ED with increased urine urgency, pelvic discomfort, vaginal discomfort. She states symptoms have been ongoing for the past year or 2. She states she has been experiencing urine urgency and bowel urgency. She states the symptoms have been getting worse over the past week. She did see a neurologist last week due to the urgency and states they did not think this was related to her back pain that she has been experiencing or neuro. She states she has a history of a bladder sling in the past. She is not diabetic. She has noted today she urinated 5 times this morning. She states she does not feel like she is completing voiding. History of hysterect jai. Started having pain in the bilateral flank over the past week. No history of kidney stones. She is concerned for possible urinary tract infection. She has not followed up with her clinical account specialist or urologist. Patient denies nausea, vomiting, diarrhea fever, chills, chest pain, shortness of breath. Allergies and Home Medications Allergies Coded Allergies: No Known Drug Allergies (Unverified , 12/04/18) Patient Home Medication List Home Medication List Reviewed: Yes Acetaminophen (Tylenol Extra Strength) 500 Mg Tablet, 500 MG PO DAILY PRN for PAIN-MILD (1-4), (Reported) Entered as Reported by: KAMRON BEAVER on 09/18/21 1010 Acetylcysteine (Nac) 600 Mg Capsule, 600 MG PO DAILY, (Reported) Entered as Reported by: VICKI ELLIS on 02/17/18 0957 Albuterol Sulfate (Ventolin Hfa) 18 Gm Hfa.aer.ad, 2 PUFF INH Q4H PRN for SHORTNESS OF BREATH, (Reported) Entered as Reported by: SHELLEY IBANEZ on 07/25/17 0936 Amoxicillin/Potassium Clav (Augmentin 875-125 Tablet) 1 Each Tablet, 1 EACH PO BID Prescribed by: HERMAN PALENCIA on 09/18/21 1223 Aspirin (Aspirin EC) 81 Mg Tablet.dr, 81 MG PO DAILY, (Reported) Entered as Reported by: KAMRON BEAVER on 09/18/21 100 Cephalexin (Cephalexin) 500 Mg Tablet, 500 MG PO BID Prescribed by: MARYA BURROWS on 12/06/222044 Cyclosporine (Restasis Multidose) 5.5 Ml Drops, 1 DROP OU DAILY PRN for DRY EYES, (Reported) Entered as Reported by: KAMRON BEAVER on 09/18/21 1005 Dexlansoprazole (Dexilant) 60 Mg , 60 MG PO DAILY, (Reported) Entered as Reported by: VICKI ELLIS on 02/17/18 0957 Diazepam (Valium) 5 Mg Tablet, 5 MG PO BID PRN for ANXIETY, (Reported) Entered as Reported by: DELVIN CANELA on 09/17/21 105 Diclofenac Sodium (Voltaren Arthritis Pain) 20 Gm Gel..gram., 1 APPLIC TP PRN PRN for PAIN-MILD (1-4), (Reported) Entered as Reported by: DELVIN CANELA on 09/17/21 1055 Diltiazem HCl (Cartia Xt) 240 Mg Cap.er.24h, 240 MG PO DAILY, (Reported) Entered as Reported by: JOSÉ ORTIZ on 07/09/17 1352 Estradiol (Estradiol Tablet) 1 Mg Tablet, 1.5 MG PO DAILY, (Reported) Entered as Reported by: BURT BULL on 12/04/18 1410 Fexofenadine HCl (Fexofenadine HCl) 180 Mg Tablet, 180 MG PO DAILY, (Reported) Entered as Reported by: SHELLEY IBANEZ on 07/25/17 0936 Fluoxetine HCl (Prozac) 20 Mg Capsule, 20 MG PO DAILY, (Reported) Entered as Reported by: BURT BULL on 12/04/18 1410 Fluticasone Propionate (Fluticasone Propionate) 16 Gm [place].susp, 2 SPRAY NS DAILY, (Reported) Entered as Reported by: SHELLEY IBANEZ on 07/25/17 0936 Fluticasone/Umeclidin/Vilanter (Trelegy Ellipta 200-62.5-25) 1 Each Blst.w.dev, 1 EACH IH, (Reported) Entered as Reported by: DELVIN CANELA on 09/17/21 1055 Hydrocodone Bit/Acetaminophen (HYDROcodone/APAP 10/325 TABLET) 1 Each Tablet, 1 EACH PO Q6H PRN for PAIN-MILD TO MODERATE, (Reported) Entered as Reported by: VICKI ELLIS on 02/17/18 0957 Ibuprofen (Ibuprofen) 200 Mg Tablet, 400 MG PO DAILY PRN for PAIN-MILD (1-4), (Reported) Entered as Reported by: KAMRON BEAVER on 09/18/21 1010 Montelukast Sodium (Montelukast Sodium) 10 Mg Tablet, 10 MG PO HS, (Reported) Entered as Reported by: VICKI ELLIS on 11/29/16 1609 Olopatadine HCl (Pataday Once Daily Relief) 5 Ml Drops, 1 DROP OU DAILY PRN for ALLERGIES, (Reported) Entered as Reported by: KAMRON BEAVER on 09/18/21 1036 Ondansetron (Ondansetron Odt) 4 Mg Tab.rapdis, 4 MG PO Q4H PRN for NAUSEA/VOMITING, (Reported) Entered as Reported by: BURT BULL on 12/04/18 1410 Phenazopyridine HCl (Pyridium) 200 Mg Tablet, 1 TAB PO TID Prescribed by: MARYA BURROWS on 12/06/222044 Pravastatin Sodium (Pravastatin Sodium) 40 Mg Tablet, 40 MG PO HS, (Reported) Entered as Reported by: VICKI ELLIS on 11/29/16 1609 Roflumilast (Daliresp) 500 Mcg Tablet, 500 MCG PO DAILY, (Reported) Entered as Reported by: BURT BULL on 12/04/18 1410 Tolterodine Tartrate (Detrol) 1 Mg Tablet, 1 MG PO BID Prescribed by: MARYA BURROWS on 12/06/222044 Review of Systems Review of Systems Constitutional: No chills, No diaphoresis, No weakness EENTM: No ear pain, No blurred vision Respiratory: No cough, No dyspnea on exertion Cardiovascular: No chest pain Gastrointestinal: abdominal pain; No diarrhea, No nausea, No vomiting Genitourinary: denies discharge, denies dysuria; frequency, incontinence Musculoskeletal: back pain; No joint pain Skin: No change in color, No change in hair/nails All Other Systemes Reviewed Negative Unless Noted: Yes Past Kxjnskz-Qnqqlw-Rqflhj Hx Patient Social History Tobacco Use?: Yes Tobacco type used: Cigarettes Substance use?: No Alcohol Use?: Yes Alcohol Frequency: Rarely Immunizations Up To Date Tetanus Booster (TDap): Unknown PED Vaccines UTD: No First/Initial COVID19 Vaccinat: 12/2020 Second COVID19 Vaccination Enoc: 01/2021 Third COVID19 Vaccination Date: 12/2020 Seasonal Allergies Seasonal Allergies: Yes Past Medical History Surgery/Hospitalization HX: Spinal fusion 2004, Lobectomy 2008, Breast implants 1996, HYST/ BLADDER SLING, COPD, LUNG CA, GERD Surgeries: Yes (BUNIONECTOMY, NECK FUSION, BREAST IMPLANTS) Lobectomy Respiratory: Yes ( HX OF LUNG CA, O2 2L NC) COPD Currently Using CPAP: No Currently Using BIPAP: No Cardiac: Yes (TACHYCARDIA) Atrial Fibrillation, High Cholesterol Neurological: No 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 Disorders: Yes 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 Sexually Transmitted Disease: No HIV/AIDS: No Genitourinary: No Gastrointestinal: Yes Gastroesophageal Reflux Musculoskeletal: Yes (joint pain) Arthritis, Chronic Back Pain Endocrine: No HEENT: Yes (READING GLASSES) Loss of Vision: Bilateral Hearing Impairment: Denies Cancer: Yes Lung Did You Recieve Any Treatments: Yes What Type of Treatment Did You: Surgical Intervention Psychosocial: Yes Anxiety, Depression Integumentary: No Blood Disorders: No Adverse Reaction/Blood Tranf: No (N/A) Family Medical History FH: lung cancer 19 FATHER 19 MOTHER No Pertinent Family Hx Physical Exam Vital Signs Vital Signs - First Documented 12/06/22 17:24 Temp 37.1 Pulse 110 Resp 20 B/P (MAP) 129/77 (94) Pulse Ox 96 O2 Delivery Room Air Capillary Refill : Less Than 3 Seconds Height, Weight, BMI Height: 5'5.00" Weight: 179lbs. 2.0oz. 81.418290fy; 28.00 BMI Method:Stated General Appearance: WD/WN, no apparent distress HEENT: PERRL/EOMI, normal ENT inspection, TMs normal, pharynx normal Neck: non-tender, full range of motion, supple, normal inspection Cardiovascular: regular rate, rhythm, no edema, no gallop, no JVD Respiratory: chest non-tender, lungs clear, normal breath sounds, no respira tory distress, no accessory muscle use Gastrointestinal: normal bowel sounds, soft, no organomegaly, tenderness Back: normal inspection, no CVA tenderness, no vertebral tenderness Extremities: normal range of motion, non-tender, normal inspection, no pedal edema, no calf tenderness 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, no motor/sensory deficits, alert, normal mood/affect, oriented x 3 Skin: normal color, warm/dry Progress/Results/Core Measures Suspected Sepsis SIRS Temperature: Pulse: 110 Respiratory Rate: 20 Laboratory Tests 12/06/22 18:45: White Blood Count 14.9H Blood Pressure 129 /77 Mean: 94 Laboratory Tests 12/06/22 18:45: Creatinine 0.74, Platelet Count 279, Total Bilirubin 0.4 Results/Orders Lab Results Laboratory Tests Test 12/06/22 17:35 12/06/22 18:45 Range/Units Urine Color YELLOW Urine Clarity CLEAR Urine pH 6.0 5-9 Urine Specific [place] 1.015 L 1.016-1.022 Urine Protein NEGATIVE NEGATIVE Urine Glucose (UA) NEGATIVE NEGATIVE Urine Ketones NEGATIVE NEGATIVE Urine Nitrite NEGATIVE NEGATIVE Urine Bilirubin NEGATIVE NEGATIVE Urine Urobilinogen 0.2 < = 1.0 MG/DL Urine Leukocyte Esterase NEGATIVE NEGATIVE Urine RBC (Auto) 1+ H NEGATIVE Urine RBC RARE /HPF Urine WBC NONE /HPF Urine Squamous Epithelial Cells 0-2 /HPF Urine Crystals NONE /LPF Urine Bacteria TRACE /HPF Urine Casts NONE /LPF Urine Mucus NEGATIVE /LPF Urine Culture Indicated NO White Blood Count 14.9 H 4.3-11.0 10^3/uL Red Blood Count 4.48 3.80-5.11 10^6/uL Hemoglobin 15.1 11.5-16.0 g/dL Hematocrit 45 35-52 % Mean Corpuscular Volume 100 H 80-99 fL Mean Corpuscular Hemoglobin 34 25-34 pg Mean Corpuscular Hemoglobin Concent 34 32-36 g/dL Red Cell Distribution Width 15.7 H 10.0-14.5 % Platelet Count 279 130-400 10^3/uL Mean Platelet Volume 10.2 9.0-12.2 fL Immature Granulocyte % (Auto) 0 % Neutrophils (%) (Auto) 75 42-75 % Lymphocytes (%) (Auto) 17 12-44 % Monocytes (%) (Auto) 6 0-12 % Eosinophils (%) (Auto) 1 0-10 % Basophils (%) (Auto) 0 0-10 % Neutrophils # (Auto) 11.1 H 1.8-7.8 10^3/uL Lymphocytes # (Auto) 2.6 1.0-4.0 10^3/uL Monocytes # (Auto) 1.0 0.0-1.0 10^3/uL Eosinophils # (Auto) 0.2 0.0-0.3 10^3/uL Basophils # (Auto) 0.1 0.0-0.1 10^3/uL Immature Granulocyte # (Auto) 0.1 0.0-0.1 10^3/uL Neutrophils % (Manual) 62 % Lymphocytes % (Manual) 24 % Monocytes % (Manual) 6 % Basophils % (Manual) 1 % Reactive Lymphocytes 7 % Stomatocytes MODERATE Sodium Level 141 135-145 MMOL/L Potassium Level 3.8 3.6-5.0 MMOL/L Chloride Level 105 98-107 MMOL/L Carbon Dioxide Level 23 21-32 MMOL/L Anion Gap 13 5-14 MMOL/L Blood Urea Nitrogen 13 7-18 MG/DL Creatinine 0.74 0.60-1.30 MG/DL Estimat Glomerular Filtration Rate 93 BUN/Creatinine Ratio 18 Glucose Level 94 70-105 MG/DL Calcium Level 9.6 8.5-10.1 MG/DL Corrected Calcium 9.4 8.5-10.1 MG/DL Total Bilirubin 0.4 0.1-1.0 MG/DL Aspartate Amino Transf (AST/SGOT) 16 5-34 U/L Alanine Aminotransferase (ALT/SGPT) 21 0-55 U/L Alkaline Phosphatase 72 40-136 U/L Total Protein 7.6 6.4-8.2 GM/DL Albumin 4.3 3.2-4.5 GM/DL My Orders Orders - CHRYSTAL DIAZ Ua Culture If Indicated (12/06/22 17:45) Cbc With Automated Diff (12/06/22 18:21) Comprehensive Metabolic Panel (12/06/22 18:21) Ct Abdomen/Pelvis W (12/06/22 18:21) Iohexol Injection (Omnipaque 350 Mg/Ml 1 (12/06/22 18:45) Received Contrast (Hold Metformin- Contr (12/06/22 18:45) Sodium Chloride Flush (Catheter Flush Sy (12/06/22 18:45) Ns (Ivpb) (Sodium Chloride 0.9% Ivpb Bag (12/06/22 18:45) Manual Differential (12/06/22 18:45) Ondansetron Injection (Zofran Injectio (12/06/22 19:00) Ketorolac Injection (Toradol Injection) (12/06/22 19:00) Cephalexin Capsule (Keflex Capsule) (12/06/22 20:40) Medications Given in ED Current Medications Medications Dose Ordered Sig/Caitlin Route Start Time Stop Time Status Last Admin Dose Admin Iohexol 100 ml ONCE ONCE IV 12/06/22 18:45 12/06/22 18:46 DC 12/06/22 19:24 80 ML Ketorolac Tromethamine 30 mg ONCE ONCE IVP 12/06/22 19:00 12/06/22 19:01 DC 12/06/22 19:03 30 MG Ondansetron HCl 4 mg ONCE ONCE IVP 12/06/22 19:00 12/06/22 19:01 DC 12/06/22 19:04 4 MG Sodium Chloride 10 ml NEEDED PRN IV 12/06/22 18:45 12/06/22 20:53 DC 12/06/22 19:24 10 ML Sodium Chloride 100 ml ONCE ONCE IV 12/06/22 18:45 12/06/22 18:46 DC 12/06/22 19:24 80 ML Vital Signs/I&O 12/06/22 12/06/22 17:24 20:55 Temp 37.1 Pulse 110 Resp 20 B/P (MAP) 129/77 (94) 122/82 Pulse Ox 96 O2 Delivery Room Air Capillary Refill : Less Than 3 Seconds Blood Pressure Mean: 94 Departure Communication (PCP) Patient presents ED urinary incontinence and bowel incontinence for near the pas t year. She states the bowel incontinence has been worse over the past week. She states she saw neurology last week regarding the incontinence and states they were not concerned for being anything neurological. I do not have accesses to this information. She states she had an MRI of her cervical neck and lumbar spine which were unremarkable. I do not see any recent MRIs. Patient reports pressure around her vaginal area. History of total hysterectomy. History of bladder sling. Concerning for bladder spasming, bladder incontinence, pelvic floor dysfunction, UTI, bladder prolapse vaginal atrophy. She states she has had some intermittent headaches and memory changes for a few months. No specific visual changes. Further evaluation with MRI to rule out other potential etiologies such as MS.. There is no lower extremity weakness. No evidence of decrease in proprioception, pain, temperature sensation. No focal neural deficits suggesting stroke. Refused pelvic exam. Did request CBC, CMP and urinalysis. Urinalysis without strong evidence of infection. Hematuria noted. CBC showed white blood count of 14, chemistry grossly unremarkable. Due to suprapubic discomfort rule out potential lesion, abscess, CT abdomen pelvis was ordered. CT abdomen pelvis was negative for acute intra-abdominal abnormality. Concerning for avascular necrosis of the hip. She does report some hip pain and was recommended to follow up with orthopedic with these results. Patient states her symptoms feel very similar to when she was diagnosed with UTI. Patient has a history of frequent urinary tract infection and does have a bladder sling. Concerning for bladder dysfunction versus pelvic floor dysfunction which would need further evaluation by gynecology and urology which I recommend outpatient follow-up. Discussed discharging with Keflex for potential early UTI, as she states this fills very similar. Discussed pelvic floor exercises. We will prescribe Detrol for a few days to help with urinary continence and potential spasming. If any worsening symptoms return back to ED. follow-up with your PCP in 4 to 5 days for reevaluation with urinalysis Impression Primary Impression: Urine incontinence Disposition: 01 HOME, SELF-CARE Condition: Stable Departure-Patient Inst. Decision time for Depature: 20:42 Referrals: [facility]/SHELLEY JARA DO (PCP) Primary Care Physician Patient Instructions: Urinary Incontinence, Female (DC) Add. Discharge Instructions: Recommend following up with urology and gynecology for further evaluation. All discharge instructions reviewed with patient and/or family. Voiced understanding. Scripts Phenazopyridine HCl (Pyridium) 200 Mg Tablet 1 TAB PO TID for 2 Days, #6 TAB Prov: CHRYSTAL DIAZ 12/06/22 Tolterodine Tartrate (Detrol) 1 Mg Tablet 1 MG PO BID, #8 TAB Prov: CHRYSTAL DIAZ 12/06/22 Cephalexin (Cephalexin) 500 Mg Tablet 500 MG PO BID for 7 Days, #14 TAB Prov: CHRYSTAL DIAZ 12/06/22 CHRYSTAL DIAZ Dec 06, 2022 18:26
[2022-12-06] MEDS ORDERED: HOLD METFORMIN - RECEIVED CONTRAST 20 ML VIAL IV SCH (18:45)
[2022-12-06] MEDS ORDERED: NS 100 ML (IVPB) BAG IV ONE (18:45)
[2022-12-06] MEDS ORDERED: CATHETER FLUSH 10 ML SYR IV PRN (18:45)
[2022-12-06] MEDS ORDERED: IOHEXOL 350 MG/ML 100 ML (OMNIPAQUE 350) VIAL IV ONE (18:45)
[2022-12-06 18:54] LABS: BASOPHILS # (AUTO) 0.1 10^3/uL (0.0-0.1); BASOPHILS % (AUTO) 0 % (0-10); EOSINOPHILS # (AUTO) 0.2 10^3/uL (0.0-0.3); EOSINOPHILS % (AUTO) 1 % (0-10); HEMATOCRIT 45 % (35-52); HEMOGLOBIN 15.1 g/dL (11.5-16.0); LYMPHOCYTES # (AUTO) 2.6 10^3/uL (1.0-4.0); LYMPHOCYTES % (AUTO) 17 % (12-44); MEAN CORPUSCULAR HEMOGLOBIN 34 pg (25-34); MEAN CORPUSCULAR HGB CONC 34 g/dL (32-36); MEAN CORPUSCULAR VOLUME 100 fL (80-99); MEAN PLATELET VOLUME 10.2 fL (9.0-12.2); MONOCYTES % (AUTO) 6 % (0-12); NEUTROPHILS # (AUTO) 11.1 10^3/uL (1.8-7.8); NEUTROPHILS % (AUTO) 75 % (42-75); PLATELET COUNT 279 10^3/uL (130-400); WHITE BLOOD COUNT 14.9 10^3/uL (4.3-11.0)
[2022-12-06] MEDS ORDERED: ONDANSETRON 4 MG/2 ML (SDV) Z0FRAN IVP ONE (19:00)
[2022-12-06] MEDS ORDERED: KETOROLAC 30 MG/ML VIAL IVP ONE (19:00)
[2022-12-06 19:03] LABS: ALBUMIN 4.3 GM/DL (3.2-4.5)
[2022-12-06 19:04] LABS: POTASSIUM 3.8 MMOL/L (3.6-5.0)
[2022-12-06 19:05] LABS: CALCIUM 9.6 MG/DL (8.5-10.1)
[2022-12-06 19:06] LABS: TOTAL PROTEIN 7.6 GM/DL (6.4-8.2)
[2022-12-06 19:08] LABS: BASOPHILS % (MANUAL) 1 %; BILIRUBIN,TOTAL 0.4 MG/DL (0.1-1.0); LYMPHOCYTES % (MANUAL) 24 %; MONOCYTES % (MANUAL) 6 %; NEUTROPHILS % (MANUAL) 62 %; REACTIVE LYMPHOCYTES 7 %
[2022-12-06 19:09] LABS: STOMATOCYTES MODERATE
[2022-12-06 19:10] LABS: CREATININE SERUM 0.74 MG/DL (0.60-1.30)
--- NOTE | 2022-12-06 19:37 | Diagnostic Imaging Report ---
PROCEDURE: CT abdomen and pelvis with contrast. TECHNIQUE: Multiple contiguous axial images were obtained through the abdomen and pelvis after administration of intravenous contrast. Auto Exposure Controls were utilized during the CT exam to meet ALARA standards for radiation dose reduction. All CT scans use one or more of the following dose optimizing techniques: automated exposure control, MA and/or KvP adjustment based on patient size and exam type or iterative reconstruction. INDICATION: Low abdominal and pelvic pain. COMPARISON: 06/28/2019. FINDINGS: No focal hepatic, gallbladder, pancreatic, adrenal gland or splenic lesion is identified. Cyst is again noted in the upper pole of the right kidney. Kidneys are otherwise unremarkable. There is mild aortoiliac atherosclerotic calcification. No free fluid is seen within the abdomen or pelvis. Unopacified bladder is unremarkable. The appendix has a normal appearance. There is no evidence of pathologically enlarged adenopathy. Lower lumbar degenerative disc disease is again noted. There is subchondral sclerosis in the femoral heads, greater on the right, suggestive of possible early osteonecrosis or developing avascular necrosis. IMPRESSION: 1. No definite acute abnormality identified in the abdomen or pelvic viscera. 2. Sclerosis in the subchondral humeral heads may represent osteonecrosis or developing avascular necrosis. Dictated by: Dictated on workstation # [id number]
[2022-12-06] MEDS ORDERED: CEPHALEXIN 250 MG (KEFLEX) CAP PO STA (20:40)
[2022-12-06] MEDS ORDERED: CEPH500T PO (20:45)
[2022-12-06] MEDS ORDERED: TOLT1TAB2 PO (20:45)
[2022-12-06] MEDS ORDERED: PHEN-640 PO (20:45)
[2022-12-06 20:55] VITALS: BP 122/82
== END 2022-12-06 20:53 | disposition home or self-care (01) ==
LOC: EDUNIT# 17:12 → ER 17:17
DX: R32 Unspecified urinary incontinence (principal); R10.2 Pelvic and perineal pain; R51.9 Headache, unspecified; F17.210 Nicotine dependence, cigarettes, uncomplicated; J44.9 Chronic obstructive pulmonary disease, unspecified; Z99.81 Dependence on supplemental oxygen
CPT/HCPCS: 36415; 74177; 80053; 81000; 85007; 85027

== ENCOUNTER → 2022-12-07 | Outpatient (CLI) | payer MEDICARE, MEDICAID ==
[~2022-12-07] MED LIST changes: +CEPH500T PO; +TOLT1TAB2 PO
--- NOTE | 2022-12-07 11:21 | Diagnostic Imaging Report ---
INDICATION: Dysphagia. Procedure was performed in conjunction with speech pathology. Video fluoroscopy was performed during the swallowing of barium in multiple consistencies. 0.7 minutes of fluoroscopic time was utilized. Patient ingested thin barium as well as applesauce and cracker consistency. The oral phase unremarkable. There is normal epiglottic tilt and laryngeal elevation. No laryngeal penetration or aspiration was observed. IMPRESSION: Unremarkable modified barium swallow study. Dictated by: Dictated on workstation # [id number]
== END ==
LOC: RAD 10:17
PROVIDERS: ATTEND Otolaryngology Otolaryngology/Facial Plastic Surgery
DX: R13.12 Dysphagia, oropharyngeal phase (principal); Z98.890 Other specified postprocedural states
CPT/HCPCS: 74230

== ENCOUNTER 2022-12-25 12:46 | Outpatient (CLI) | payer MEDICARE, MEDICAID ==
[~2022-12-25 12:46] MED LIST changes: -GENT5DRO30 OP; +GENT5DRO6 OP
== END 2022-12-25 13:20 ==
LOC: SLEEP 12:46
PROVIDERS: ATTEND Otolaryngology Otolaryngology/Facial Plastic Surgery
DX: G47.33 Obstructive sleep apnea (adult) (pediatric) (principal)
CPT/HCPCS: G0399

== ENCOUNTER → 2022-12-28 | Outpatient (CLI) | payer MEDICARE, MEDICAID ==
[~2022-12-28] MED LIST changes: +GENT5DRO30 OP; -GENT5DRO6 OP
--- NOTE | 2022-12-28 15:57 | Diagnostic Imaging Report ---
INDICATION: Chronic neck pain. Previous spinal fusion. COMPARISON: None. FINDINGS: Frontal and lateral radiographic views of the cervical spine were obtained. Flexion and extension views were also obtained in the lateral projection. Static alignment shows slight grade 1 retrolisthesis at the C4-C5 and C5-C6 levels. There is no evidence of jumped facets. There is no abnormal translation with flexion or extension. Patient is status post previous anterior fusion of C6-C7. [place] screws and anterior fusion plate appear well positioned. Intervertebral disc spacer is also noted and appears appropriately positioned. Vertebral body heights are maintained. There is no acute fracture. There are advanced degenerative changes at the C4-C5 and C5-C6 levels. This consists of intervertebral disc height loss with prominent anterior and posterior endplate osteophyte formations. IMPRESSION: 1. Mild grade 1 retrolisthesis at C4-C5 and C5-C6, but no abnormal translation with flexion or extension. 2. No acute fracture or dislocation of the cervical spine. 3. Degenerative changes, greatest at the C4-C5 and C5-C6 levels. Dictated by: Dictated on workstation # [id number]
--- NOTE | 2022-12-28 18:44 | Diagnostic Imaging Report ---
EXAMINATION: Lumbar spine radiographs, 4 views including flexion and extension. COMPARISON: December 18, 2018. HISTORY: There is severe disc height loss at L4-L5. There is moderate disc height loss at L5-S1. There are mild additional disc degenerative changes of the lumbar spine. There is no identified compression deformity or fracture. The sacroiliac joints are unremarkable in appearance. IMPRESSION: 1. Multilevel disc degenerative changes of the lumbar spine most notable at L4-L5 and L5-S1. 2. No identified compression deformity or fracture. Dictated on workstation # [id number]
== END ==
LOC: RAD 14:32
PROVIDERS: ATTEND Neurological Surgery
DX: M47.812 Spondylosis without myelopathy or radiculopathy, cervical region (principal); M48.02 Spinal stenosis, cervical region; M43.12 Spondylolisthesis, cervical region; M47.816 Spondylosis without myelopathy or radiculopathy, lumbar region; M47.817 Spondylosis without myelopathy or radiculopathy, lumbosacral region; M48.061 Spinal stenosis, lumbar region without neurogenic claudication
CPT/HCPCS: 72050; 72110

== ENCOUNTER 2023-01-16 12:29 | Emergency (ER) | payer MEDICARE, MEDICAID ==
[~2023-01-16] VITALS: Ht 165 cm; Wt 78.0 kg
[~2023-01-16 12:29] MED LIST changes: -GENT5DRO30 OP; +GENT5DRO6 OP
--- NOTE | 2023-01-16 12:41 | ED Respiratory ---
General Chief Complaint: Respiratory Problems Stated Complaint: CONGESTION | SOB | CHEST PRESSURE Nursing Triage Note: COUGH/SOA STARTING ON SAT ALONG WITH A HEAD CONGESTION AND SORE THROAT. HOME COVID TEST NEG. CALLED HER IN A SCRIPT FOR A STEROID AND PREDNISONE. History of Present Illness Date Seen by Provider: January 16, 2023 Time Seen by Provider: 12:36 Initial Comments 62 year old female with known COPD and history of right middle lung cancer with resection reports that on 01/12/2023 she began having cough, sinus congestion, nasal drainage and green to yellow discolored sputum. She sees a lane attendant in [place] and on 01/14/2023 she was started on Levaquin 750 mg once daily and a prednisone taper pack. She has been using her rescue inhaler every 6-8 hours as needed. She recently had a sleep study and was started on oxygen at night. She has not required any supplemental oxygen during the day. She reports persistent cough despite taking the Tessalon Perles. She moved recently and has been unable to find her nebulizer. Timing/Duration: constant, other (01/12/23) Severity: moderate Prior Episodes/Possible Cause: occasional episodes Associated Symptoms: chest pain/soreness, cough; No fever/chills; headache (sinus headache); No lightheadedness, No muscle aches; nasal congestion, nasal drainage, shortness of breath (chronic, only worse when coughing), sinus infection; No wheezing Allergies and Home Medications Allergies Coded Allergies: No Known Drug Allergies (Unverified , 12/04/18) Patient Home Medication List Home Medication List Reviewed: Yes Acetaminophen (Tylenol Extra Strength) 500 Mg Tablet, 500 MG PO DAILY PRN for PAIN-MILD (1-4), (Reported) Entered as Reported by: KAMRON BEAVER on 09/18/21 1010 Acetylcysteine (Nac) 600 Mg Capsule, 600 MG PO DAILY, (Reported) Entered as Reported by: VICKI ELLIS on 02/17/18 0957 Albuterol Sulfate (Ventolin Hfa) 18 Gm Hfa.aer.ad, 2 PUFF INH Q4H PRN for SHORTNESS OF BREATH, (Reported) Entered as Reported by: SHELLEY IBANEZ on 07/25/17 0936 Amoxicillin/Potassium Clav (Augmentin 875-125 Tablet) 1 Each Tablet, 1 EACH PO BID Prescribed by: HERMAN PALENCIA on 09/18/21 1223 Aspirin (Aspirin EC) 81 Mg Tablet.dr, 81 MG PO DAILY, (Reported) Entered as Reported by: KAMRON BEAVER on 09/18/21 100 Cephalexin (Cephalexin) 500 Mg Tablet, 500 MG PO BID Prescribed by: MARYA BURROWS on 12/06/22 204 Cyclosporine (Restasis Multidose) 5.5 Ml Drops, 1 DROP OU DAILY PRN for DRY EYES, (Reported) Entered as Reported by: KAMRON BEAVER on 09/18/21 1005 Dexlansoprazole (Dexilant) 60 Mg Capbp, 60 MG PO DAILY, (Reported) Entered as Reported by: VICKI ELLIS on 02/17/18 0957 Diazepam (Valium) 5 Mg Tablet, 5 MG PO BID PRN for ANXIETY, (Reported) Entered as Reported by: DELVIN CANELA on 09/17/21 1055 Diclofenac Sodium (Voltaren Arthritis Pain) 20 Gm Gel..gram., 1 APPLIC TP PRN PRN for PAIN-MILD (1-4), (Reported) Entered as Reported by: DELVIN CANELA on 09/17/21 1055 Diltiazem HCl (Cartia Xt) 240 Mg Cap.er.24h, 240 MG PO DAILY, (Reported) Entered as Reported by: JOSÉ ORTIZ on 07/09/17 1352 Estradiol (Estradiol Tablet) 1 Mg Tablet, 1.5 MG PO DAILY, (Reported) Entered as Reported by: BURT BULL on 12/04/18 1410 Fexofenadine HCl (Fexofenadine HCl) 180 Mg Tablet, 180 MG PO DAILY, (Reported) Entered as Reported by: SHELLEY IBANEZ on 07/25/17 0936 Fluoxetine HCl (Prozac) 20 Mg Capsule, 20 MG PO DAILY, (Reported) Entered as Reported by: BURT BULL on 12/04/18 1410 Fluticasone Propionate (Fluticasone Propionate) 16 Gm Britton.susp, 2 SPRAY NS DAILY, (Reported) Entered as Reported by: SHELLEY IBANEZ on 07/25/17 0936 Fluticasone/Umeclidin/Vilanter (Trelegy Ellipta 200-62.5-25) 1 Each Blst.w.dev, 1 EACH IH, (Reported) Entered as Reported by: DELVIN CANELA on 09/17/21 1055 Hydrocodone Bit/Acetaminophen (HYDROcodone/APAP 10/325 TABLET) 1 Each Tablet, 1 EACH PO Q6H PRN for PAIN-MILD TO MODERATE, (Reported) Entered as Reported by: VICKI ELLIS on 02/17/18 0957 Ibuprofen (Ibuprofen) 200 Mg Tablet, 400 MG PO DAILY PRN for PAIN-MILD (1-4), (Reported) Entered as Reported by: KAMRON BEAVER on 09/18/21 1010 Montelukast Sodium (Montelukast Sodium) 10 Mg Tablet, 10 MG PO HS, (Reported) Entered as Reported by: VICKI ELLIS on 11/29/16 1609 Olopatadine HCl (Pataday Once Daily Relief) 5 Ml Drops, 1 DROP OU DAILY PRN for ALLERGIES, (Reported) Entered as Reported by: KAMRON BEAVER on 09/18/21 1036 Ondansetron (Ondansetron Odt) 4 Mg Tab.rapdis, 4 MG PO Q4H PRN for NAUSEA/VOMITING, (Reported) Entered as Reported by: BURT BULL on 12/04/18 1410 Phenazopyridine HCl (Pyridium) 200 Mg Tablet, 1 TAB PO TID Prescribed by: MARYA BURROWS on 12/06/222044 Pravastatin Sodium (Pravastatin Sodium) 40 Mg Tablet, 40 MG PO HS, (Reported) Entered as Reported by: VICKI ELLIS on 11/29/16 1609 Promethazine HCl/Codeine (Promethazine-Codeine Solution) 6.25 Mg-10 Mg/5 Ml Syrup, 5 ML PO Q8H PRN for COUGH Prescribed by: JOSÉ LICEA on 01/16/23 1433 Roflumilast (Daliresp) 500 Mcg Tablet, 500 MCG PO DAILY, (Reported) Entered as Reported by: BURT BULL on 12/04/18 1410 Tolterodine Tartrate (Detrol) 1 Mg Tablet, 1 MG PO BID Prescribed by: MARYA BURROWS on 12/06/222044 Review of Systems Review of Systems Constitutional: see HPI; No chills, No diaphoresis, No fever; malaise EENTM: see HPI, nose congestion, throat pain Respiratory: see HPI, cough, dyspnea on exertion, phlegm Cardiovascular: no symptoms reported, see HPI Gastrointestinal: no symptoms reported, see HPI; No constipation, No nausea, No vomiting All Other Systems Reviewed Negative Unless Noted: Yes Past Hywownj-Hakdue-Mjnisj Hx Patient Social History Tobacco Use?: Yes Tobacco type used: Cigarettes Smoking Status: Current Everyday Smoker Substance use?: No Alcohol Use?: Yes Alcohol Frequency: Couple times a week Immunizations Up To Date Tetanus Booster (TDap): Unknown PED Vaccines UTD: No First/Initial COVID19 Vaccinat: 12/2020 Second COVID19 Vaccination Enoc: 01/2021 Third COVID19 Vaccination Date: 12/2020 Seasonal Allergies Seasonal Allergies: Yes Past Medical History Surgery/Hospitalization HX: Spinal fusion 2004, Lobectomy 2008, Breast implants 1996, HYST/ BLADDER SLING, COPD, LUNG CA, GERD Surgeries: Yes (BUNIONECTOMY, NECK FUSION, BREAST IMPLANTS) Lobectomy Respiratory: Yes ( HX OF LUNG CA, O2 2L NC) COPD Currently Using CPAP: No Currently Using BIPAP: No Cardiac: Yes (TACHYCARDIA) Atrial Fibrillation, High Cholesterol Neurological: No 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 Disorders: Yes REVIEW RN History: Menopausal Sexually Transmitted Disease: No HIV/AIDS: No Genitourinary: No Gastrointestinal: Yes Gastroesophageal Reflux Musculoskeletal: Yes (joint pain) Arthritis, Chronic Back Pain Endocrine: No HEENT: Yes (READING GLASSES) Loss of Vision: Bilateral Hearing Impairment: Denies Cancer: Yes Lung Did You Recieve Any Treatments: Yes What Type of Treatment Did You: Surgical Intervention Psychosocial: Yes Anxiety, Depression Integumentary: No Blood Disorders: No Adverse Reaction/Blood Tranf: No (N/A) Family Medical History Reviewed Nursing Family Hx FH: lung cancer 19 FATHER 19 MOTHER No Pertinent Family Hx Physical Exam Vital Signs - First Documented 01/16/23 01/16/23 12:33 12:40 Temp 36.2 Pulse 111 Resp 18 B/P (MAP) 123/81 (95) Pulse Ox 95 O2 Delivery Room Air O2 Flow Rate 2.00 Capillary Refill : Less Than 3 Seconds Height: 5'5.00" Weight: 179lbs. 2.0oz. 81.519143ab; 28.00 BMI Method:Stated General Appearance: WD/WN, mild distress (scondary to coughing) HEENT: PERRL/EOMI, TMs normal; No pharyngeal erythema, No tonsillar exudate; other (Postnasal drainage) Neck: non-tender, full range of motion, supple, normal inspection Respiratory: lungs clear, normal breath sounds, no respiratory distress, decre ased breath sounds Cardiovascular: normal peripheral pulses, regular rate, rhythm, tachycardia (90-110, highest when coughing. Reports HR runs 100-110 normally) Gastrointestinal: normal bowel sounds, non tender, soft Extremities: normal range of motion, non-tender, normal inspection, no pedal edema, normal capillary refill Neurologic/Psychiatric: no motor/sensory deficits, alert, normal mood/affect, oriented x 3 Skin: normal color, warm/dry Progress/Results/Core Measures Suspected Sepsis SIRS Temperature: Pulse: 111 Respiratory Rate: 18 Laboratory Tests 01/16/23 12:40: White Blood Count 13.4H Blood Pressure 123 /81 Mean: 95 Laboratory Tests 01/16/23 12:40: Creatinine 0.78, INR Comment 0.9, Platelet Count 228, Total Bilirubin 0.3 Results/Orders Lab Results Laboratory Tests Test 01/16/23 12:40 01/16/23 12:41 01/16/23 13:30 Range/Units White Blood Count 13.4 H 4.3-11.0 10^3/uL Red Blood Count 4.14 3.80-5.11 10^6/uL Hemoglobin 14.2 11.5-16.0 g/dL Hematocrit 42 35-52 % Mean Corpuscular Volume 101 H 80-99 fL Mean Corpuscular Hemoglobin 34 25-34 pg Mean Corpuscular Hemoglobin Concent 34 32-36 g/dL Red Cell Distribution Width 15.3 H 10.0-14.5 % Platelet Count 228 130-400 10^3/uL Mean Platelet Volume 10.2 9.0-12.2 fL Immature Granulocyte % (Auto) 1 % Neutrophils (%) (Auto) 92 H 42-75 % Lymphocytes (%) (Auto) 4 L 12-44 % Monocytes (%) (Auto) 3 0-12 % Eosinophils (%) (Auto) 0 0-10 % Basophils (%) (Auto) 0 0-10 % Neutrophils # (Auto) 12.3 H 1.8-7.8 10^3/uL Lymphocytes # (Auto) 0.5 L 1.0-4.0 10^3/uL Monocytes # (Auto) 0.5 0.0-1.0 10^3/uL Eosinophils # (Auto) 0.0 0.0-0.3 10^3/uL Basophils # (Auto) 0.0 0.0-0.1 10^3/uL Immature Granulocyte # (Auto) 0.1 0.0-0.1 10^3/uL Neutrophils % (Manual) 93 % Lymphocytes % (Manual) 5 % Monocytes % (Manual) 2 % Anisocytosis SLIGHT Macrocytosis SLIGHT Prothrombin Time 12.4 12.2-14.7 SEC INR Comment 0.9 0.8-1.4 Activated Partial Thromboplast Time 29 24-35 SEC Sodium Level 142 135-145 MMOL/L Potassium Level 3.8 3.6-5.0 MMOL/L Chloride Level 107 98-107 MMOL/L Carbon Dioxide Level 25 21-32 MMOL/L Anion Gap 10 5-14 MMOL/L Blood Urea Nitrogen 13 7-18 MG/DL Creatinine 0.78 0.60-1.30 MG/DL Estimat Glomerular Filtration Rate 87 BUN/Creatinine Ratio 17 Glucose Level 107 H 70-105 MG/DL Calcium Level 9.6 8.5-10.1 MG/DL Corrected Calcium 9.5 8.5-10.1 MG/DL Total Bilirubin 0.3 0.1-1.0 MG/DL Aspartate Amino Transf (AST/SGOT) 14 5-34 U/L Alanine Aminotransferase (ALT/SGPT) 17 0-55 U/L Alkaline Phosphatase 78 40-136 U/L C-Reactive Protein High Sensitivity 0.57 H 0.00-0.50 MG/DL B-Type Natriuretic Peptide 84.0 <100.0 PG/ML Total Protein 7.4 6.4-8.2 GM/DL Albumin 4.1 3.2-4.5 GM/DL Influenza Type A (RT-PCR) Not Detected Not Detecte Influenza Type B (RT-PCR) Not Detected Not Detecte SARS-CoV-2 RNA (RT-PCR) Not Detected Not Detecte Urine Color YELLOW Urine Clarity CLEAR Urine pH 6.5 5-9 Urine Specific [place] >=1.030 1.016-1.022 Urine Protein NEGATIVE NEGATIVE Urine Glucose (UA) NEGATIVE NEGATIVE Urine Ketones NEGATIVE NEGATIVE Urine Nitrite NEGATIVE NEGATIVE Urine Bilirubin NEGATIVE NEGATIVE Urine Urobilinogen 0.2 < = 1.0 MG/DL Urine Leukocyte Esterase NEGATIVE NEGATIVE Urine RBC (Auto) TRACE-I H NEGATIVE Urine RBC 2-5 H /HPF Urine WBC NONE /HPF Urine Squamous Epithelial Cells 2-5 /HPF Urine Crystals NONE /LPF Urine Bacteria TRACE /HPF Urine Casts NONE /LPF Urine Mucus SMALL H /LPF Urine Culture Indicated NO My Orders Orders - JOSÉ LICEA PHYSICIAN GYNECOLOGIST [employer] [place] (01/16/23 12:42) Cbc With Automated Diff (01/16/23 12:42) Comprehensive Metabolic Panel (01/16/23 12:42) Hs C Reactive Protein (01/16/23 12:42) Protime With Inr (01/16/23 12:42) Partial Thromboplastin Time (01/16/23 12:42) Ua Culture If Indicated (01/16/23 12:42) Influenza A And B By Pcr (01/16/23 12:42) Covid 19 Inhouse Test (01/16/23 12:42) Chest 1 View, Ap/Pa Only (01/16/23 12:42) Manual Differential (01/16/23 12:40) Albuterol/Ipra Inhalation Soln (Duoneb I (01/16/23 13:30) Svn Small Volume Nebulizer (01/16/23 13:20) Promethazine/ Codeine Syrup (Phenergan W (01/16/23 13:20) Ed Iv/Invasive Line Start (01/16/23 13:24) Ns Iv 500 Ml (Sodium Chloride 0.9%) (01/16/23 13:30) Medications Given in ED Current Medications Medications Dose Ordered Sig/Caitlin Route Start Time Stop Time Status Last Admin Dose Admin Albuterol/ Ipratropium 3 ml ONCE ONCE INH 01/16/23 13:30 01/16/23 13:31 DC 01/16/23 13:33 3 ML Sodium Chloride 500 ml @ 0 mls/hr Q0M ONCE IV 01/16/23 13:30 01/16/23 13:31 DC 01/16/23 13:33 500 MLS/HR Vital Signs/I&O 01/16/23 01/16/23 01/16/23 12:33 12:40 14:42 Temp 36.2 Pulse 111 106 Resp 18 18 B/P (MAP) 123/81 (95) 112/73 Pulse Ox 95 94 O2 Delivery Room Air Nasal Cannula Room Air O2 Flow Rate 2.00 Capillary Refill : Less Than 3 Seconds Blood Pressure Mean: 95 Progress Note : Time: 12:36 Progress Note Patient assessed, will obtain COVID and flu testing, chest x-ray and labs. Patient concerned whether this is a pneumonia, COVID, Flu, or COPD exacerbation. She is on proper medications for COPD with the Levaquin and steroids. 1325 COVID and flu negative, DuoNeb treatment and Phenergan with codeine cough syrup. She continues to maintain an SaO2 of 95 to 98% on room air. She has not required any supplemental oxygen. Her chest x-ray does not show pneumonia. These results were discussed with the patient we will see how she tolerates the breathing treatment and if the cough is improved with the medicine. We will also give 500 mL of normal saline. 1415 patient completed the breathing treatment, HR high was 114. 1500 patient had improvement after cough suppressant and breathing treatment. She has a nebulizer at home that she will continue to use. She will be in close contact with her lane attendant. Discharge instructions and return precautions reviewed with her. Departure Impression Primary Impression: Sinusitis Qualified Codes: J01.10 - Acute frontal sinusitis, unspecified Additional Impressions: COPD exacerbation Allergic rhinitis Qualified Codes: J30.2 - Other seasonal allergic rhinitis History of lung cancer Cough Qualified Codes: R05.1 - Acute cough Disposition: 01 HOME, SELF-CARE Condition: Improved Departure-Patient Inst. Decision time for Depature: 13:50 Referrals: SHELLEY ROSENBERG DO (PCP/Family) Primary Care Physician Patient Instructions: Exacerbation of COPD (DC) Add. Discharge Instructions: Continue the medication from your lane attendant as prescribed. Increase water intake. Use your nebulizer machine every 4 hours. Use your oxygen at night as prescribed, may use during the day, if short of breath. Take probiotics as directed on the bottle. Eat 1 cup of activity a yogurt daily. Follow-up with your lane attendant if symptoms or not improving or worsen. Return to the emergency department for new, urgent healthcare problems. All discharge instructions reviewed with patient and/or family. Voiced understanding. Scripts Promethazine HCl/Codeine (Promethazine-Codeine Solution) 6.25 Mg-10 Mg/5 Ml Sy rup 5 ML PO Q8H PRN for COUGH, #460 ML 0 Refills Prov: JOSÉ LICEA 01/16/23 JOSÉ LICEA January 16, 2023 12:41
[2023-01-16 12:47] LABS: BASOPHILS % (AUTO) 0 % (0-10); EOSINOPHILS % (AUTO) 0 % (0-10); HEMATOCRIT 42 % (35-52); HEMOGLOBIN 14.2 g/dL (11.5-16.0); LYMPHOCYTES # (AUTO) 0.5 10^3/uL (1.0-4.0); LYMPHOCYTES % (AUTO) 4 % (12-44); MEAN CORPUSCULAR HEMOGLOBIN 34 pg (25-34); MEAN CORPUSCULAR HGB CONC 34 g/dL (32-36); MEAN CORPUSCULAR VOLUME 101 fL (80-99); MEAN PLATELET VOLUME 10.2 fL (9.0-12.2); MONOCYTES # (AUTO) 0.5 10^3/uL (0.0-1.0); MONOCYTES % (AUTO) 3 % (0-12); NEUTROPHILS # (AUTO) 12.3 10^3/uL (1.8-7.8); NEUTROPHILS % (AUTO) 92 % (42-75); PLATELET COUNT 228 10^3/uL (130-400); WHITE BLOOD COUNT 13.4 10^3/uL (4.3-11.0)
[2023-01-16 12:58] LABS: ALBUMIN 4.1 GM/DL (3.2-4.5); POTASSIUM 3.8 MMOL/L (3.6-5.0)
[2023-01-16 12:59] LABS: CALCIUM 9.6 MG/DL (8.5-10.1)
[2023-01-16 13:01] LABS: TOTAL PROTEIN 7.4 GM/DL (6.4-8.2)
[2023-01-16 13:02] LABS: BILIRUBIN,TOTAL 0.3 MG/DL (0.1-1.0)
[2023-01-16 13:03] LABS: INR 0.9 (0.8-1.4); PROTHROMBIN TIME PATIENT 12.4 SEC (12.2-14.7)
[2023-01-16 13:04] LABS: CREATININE SERUM 0.78 MG/DL (0.60-1.30)
--- NOTE | 2023-01-16 13:11 | Diagnostic Imaging Report ---
HISTORY: Cough and congestion. COMPARISON: 09/16/2021 FINDINGS: Single frontal view of the chest demonstrates large lung volumes with no focal consolidation. No pleural effusion or pneumothorax. There is increased lucency in the upper lobes, consistent with chronic obstructive disease. Surgical clips are noted. There does appear to be scarring at the right hilum. The cardiac silhouette is stable in size. Pacemaker is noted. IMPRESSION: 1. Chronic findings in the lungs with no acute pulmonary abnormality seen. Dictated by: Dictated on workstation # [id number]
[2023-01-16 13:16] LABS: LYMPHOCYTES % (MANUAL) 5 %; MONOCYTES % (MANUAL) 2 %; NEUTROPHILS % (MANUAL) 93 %
[2023-01-16 13:17] LABS: ANISOCYTOSIS SLIGHT
[2023-01-16] MEDS ORDERED: PROMETHAZINE/ CODEINE SYRUP 5 ML UDC PO STA (13:20)
[2023-01-16] MEDS ORDERED: RT-ALBUTEROL/IPRATROPIUM 3 ML (DUONEB) VIAL INH ONE (13:30)
[2023-01-16] MEDS ORDERED: NS IV 500 ML 500 ML IV ONE (13:30)
[2023-01-16 13:40] LABS: BILIRUBIN,URINE NEGATIVE (NEGATIVE); CLARITY,URINE CLEAR; COLOR,URINE YELLOW; GLUCOSE, URINE (UA) NEGATIVE (NEGATIVE); KETONES,URINE NEGATIVE (NEGATIVE); LEUKOCYTE ESTERASE ,URINE NEGATIVE (NEGATIVE); NITRITE,URINE NEGATIVE (NEGATIVE); PH,URINE 6.5 (5-9); PROTEIN,URINE NEGATIVE (NEGATIVE)
[2023-01-16 13:49] LABS: BACTERIA,URINE TRACE /HPF
[2023-01-16] MEDS ORDERED: PROM473S9 PO (14:32)
[2023-01-16 14:42] VITALS: BP 112/73
[2023-01-17] MEDS ORDERED: BENZ200C51 PO (21:12)
== END 2023-01-16 14:42 | disposition home or self-care (01) ==
LOC: EDUNIT# 12:29 → ER 12:31
DX: J44.1 Chronic obstructive pulmonary disease with (acute) exacerbation (principal); J32.9 Chronic sinusitis, unspecified; J30.9 Allergic rhinitis, unspecified; F17.210 Nicotine dependence, cigarettes, uncomplicated; Z79.52 Long term (current) use of systemic steroids; Z99.81 Dependence on supplemental oxygen; Z85.118 Personal history of other malignant neoplasm of bronchus and lung; Z20.822 Contact with and (suspected) exposure to COVID-19
CPT/HCPCS: 36415; 71045; 80053; 81000; 83880; 85007; 85027; 85610; 85730; 86141; 87636; 94640

== ENCOUNTER 2023-01-17 18:47 | Emergency (ER) | payer MEDICARE, MEDICAID ==
[~2023-01-17] VITALS: Ht 165 cm; Wt 78.0 kg
[~2023-01-17 18:47] MED LIST changes: -BENZ200C51 PO
--- NOTE | 2023-01-17 19:26 | ED General ---
General Chief Complaint: Respiratory Problems Stated Complaint: DIFFICULTY BREATHING Nursing Triage Note: pt presents to ED with c/o SOA and feelings of "something blocking her airway." pt seen by pulmonology saturday and prescribed inhalers, pt seen last for same, workup unremarkable. sent home with rx for cough syrup. pt states nothing is helping. Source of Information: Patient, Old Records (Reviewed chart from yesterday and other recent documentation) Exam Limitations: No Limitations History of Present Illness Date Seen by Provider: January 17, 2023 Time Seen by Provider: 19:05 Initial Comments This is 62-year-old woman with COPD presents to the emergency room with acute illness and/or exacerbation of COPD for the last 5 or 6 days. She has been seen by her kiln door repairer (Dr. Villalobos) and in the ER yesterday. She has been started on Levaquin and steroids. She continues using her inhaled treatments including DuoNeb and Trelegy. She does continue to smoke and had 2 cigarettes today. Her work-up from yesterday was reviewed and was unremarkable. She reports feeling extremely short of air especially with exertion. Even getting up and urinated causes shortness of breath and anxiousness. She also has intense paroxysms of coughing. Coughing has been severe at times even despite using codeine cough syrup. She also reports having bowel and bladder urgency. Urinalysis yesterday was unremarkable. She denies any chest pain. She has history of lung cancer but has been in remission for about 6 years. She additionally complains of some generalized leg weakness and back aching for which she has been evaluated by a neurologist. She also has a urologist and sees Dr. Moody for ENT evaluation and sleep apnea. She uses oxygen at night for her sleep apnea. Dr. Moody ordered a barium swallow in November which was unremarkable. She reports her last CT scan was performed in August or September through [facility]. She has history of atrial fibrillation but is not anticoagulated. She does have a loop recorder and sees Dr. Chew. She is exhibiting very tight and wheezy breath sounds on exam. She reports using her DuoNeb nebulizer twice last night and twice today. She is afebrile. She reports reducing the prescribed dose of prednisone because she cannot tolerate more than 20 mg a day due to sleep disturbance. Allergies and Home Medications Allergies Coded Allergies: No Known Drug Allergies (Unverified , 12/04/18) Patient Home Medication List Home Medication List Reviewed: Yes Acetaminophen (Tylenol Extra Strength) 500 Mg Tablet, 500 MG PO DAILY PRN for PAIN-MILD (1-4), (Reported) Entered as Reported by: KAMRON BEAVER on 09/18/21 1010 Acetylcysteine (Nac) 600 Mg Capsule, 600 MG PO DAILY, (Reported) Entered as Reported by: VICKI ELLIS on 02/17/18 0957 Albuterol Sulfate (Ventolin Hfa) 18 Gm Hfa.aer.ad, 2 PUFF INH Q4H PRN for SHORTNESS OF BREATH, (Reported) Entered as Reported by: SHELLEY IBANEZ on 07/25/17 0936 Amoxicillin/Potassium Clav (Augmentin 875-125 Tablet) 1 Each Tablet, 1 EACH PO BID Prescribed by: HERMAN PALENCIA on 09/18/21 1223 Aspirin (Aspirin EC) 81 Mg Tablet.dr, 81 MG PO DAILY, (Reported) Entered as Reported by: KAMRON BEAVER on 09/18/21 1005 Benzonatate (Benzonatate) 200 Mg Capsule, 200 MG PO Q8H PRN for COUGH Prescribed by: ARGENTINA SANDOVAL on 01/17/232111 Cephalexin (Cephalexin) 500 Mg Tablet, 500 MG PO BID Prescribed by: MARYA BURROWS on 12/06/222044 Cyclosporine (Restasis Multidose) 5.5 Ml Drops, 1 DROP OU DAILY PRN for DRY EYES, (Reported) Entered as Reported by: KAMRON BEAVER on 09/18/21 1005 Dexlansoprazole (Dexilant) 60 Mg , 60 MG PO DAILY, (Reported) Entered as Reported by: VICKI ELLIS on 02/17/18 0957 Diazepam (Valium) 5 Mg Tablet, 5 MG PO BID PRN for ANXIETY, (Reported) Entered as Reported by: DELVIN CANELA on 09/17/21 1055 Diclofenac Sodium (Voltaren Arthritis Pain) 20 Gm Gel..gram., 1 APPLIC TP PRN PRN for PAIN-MILD (1-4), (Reported) Entered as Reported by: DELVIN CANELA on 09/17/21 1055 Diltiazem HCl (Cartia Xt) 240 Mg Cap.er.24h, 240 MG PO DAILY, (Reported) Entered as Reported by: JOSÉ ORTIZ on 07/09/17 1352 Estradiol (Estradiol Tablet) 1 Mg Tablet, 1.5 MG PO DAILY, (Reported) Entered as Reported by: BURT BULL on 12/04/18 1410 Fexofenadine HCl (Fexofenadine HCl) 180 Mg Tablet, 180 MG PO DAILY, (Reported) Entered as Reported by: SHELLEY IBANEZ on 07/25/17 0936 Fluoxetine HCl (Prozac) 20 Mg Capsule, 20 MG PO DAILY, (Reported) Entered as Reported by: BURT BULL on 12/04/18 1410 Fluticasone Propionate (Fluticasone Propionate) 16 Gm Fisher.susp, 2 SPRAY NS DAILY, (Reported) Entered as Reported by: SHELLEY IBANEZ on 07/25/17 0936 Fluticasone/Umeclidin/Vilanter (Trelegy Ellipta 200-62.5-25) 1 Each Blst.w.dev, 1 EACH IH, (Reported) Entered as Reported by: DELVIN CANELA on 09/17/21 1055 Hydrocodone Bit/Acetaminophen (HYDROcodone/APAP 10/325 TABLET) 1 Each Tablet, 1 EACH PO Q6H PRN for PAIN-MILD TO MODERATE, (Reported) Entered as Reported by: VICKI ELLIS on 02/17/18 0957 Ibuprofen (Ibuprofen) 200 Mg Tablet, 400 MG PO DAILY PRN for PAIN-MILD (1-4), (Reported) Entered as Reported by: KAMRON BEAVER on 09/18/21 1010 Montelukast Sodium (Montelukast Sodium) 10 Mg Tablet, 10 MG PO HS, (Reported) Entered as Reported by: VICKI ELLIS on 11/29/16 1609 Olopatadine HCl (Pataday Once Daily Relief) 5 Ml Drops, 1 DROP OU DAILY PRN for ALLERGIES, (Reported) Entered as Reported by: KAMRON BEAVER on 09/18/21 1036 Ondansetron (Ondansetron Odt) 4 Mg Tab.rapdis, 4 MG PO Q4H PRN for NAUSEA/VOMITING, (Reported) Entered as Reported by: BURT BULL on 12/04/18 1410 Phenazopyridine HCl (Pyridium) 200 Mg Tablet, 1 TAB PO TID Prescribed by: MARYA BURROWS on 12/06/222044 Pravastatin Sodium (Pravastatin Sodium) 40 Mg Tablet, 40 MG PO HS, (Reported) Entered as Reported by: VICKI ELLIS on 11/29/16 1609 Promethazine HCl/Codeine (Promethazine-Codeine Solution) 6.25 Mg-10 Mg/5 Ml Syrup, 5 ML PO Q8H PRN for COUGH Prescribed by: JOSÉ LICEA on 01/16/23 1433 Roflumilast (Daliresp) 500 Mcg Tablet, 500 MCG PO DAILY, (Reported) Entered as Reported by: BURT BULL on 12/04/18 141 Tolterodine Tartrate (Detrol) 1 Mg Tablet, 1 MG PO BID Prescribed by: MARYA BURROWS on 12/06/222044 Review of Systems Review of Systems Constitutional: see HPI EENTM: see HPI Respiratory: see HPI Cardiovascular: no symptoms reported Gastrointestinal: see HPI Genitourinary: see HPI : No Musculoskeletal: see HPI Skin: no symptoms reported Psychiatric/Neurological: No Symptoms Reported Hematologic/Lymphatic: See HPI Immunological/Allergic: no symptoms reported Past Whvvxsf-Kviyip-Mvknap Hx Patient Social History Tobacco Use?: Yes Tobacco type used: Cigarettes Smoking Status: Current Everyday Smoker Substance use?: No Alcohol Use?: No Pt feels they are or have been: No Immunizations Up To Date Tetanus Booster (TDap): Unknown PED Vaccines UTD: No Influenza Vaccine Up-to-Date: No; Not Current First/Initial COVID19 Vaccinat: 12/2020 Second COVID19 Vaccination Enoc: 01/2021 Third COVID19 Vaccination Date: 12/2020 Seasonal Allergies Seasonal Allergies: Yes Past Medical History Surgery/Hospitalization HX: Spinal fusion 2004, Lobectomy 2008, Breast implants 1996, HYST/ BLADDER SLING, COPD, LUNG CA, GERD Surgeries: Yes (BUNIONECTOMY, NECK FUSION, BREAST IMPLANTS) Bladder Surgery (Sling), Breast (Implants), Cardiac (Loop recorder), Hysterectomy, Lobectomy (Right middle lobe), Orthopedic Respiratory: Yes ( HX OF LUNG CA, O2 2L NC) Sleep Apnea, COPD Currently Using CPAP: No Currently Using BIPAP: No Cardiac: Yes (TACHYCARDIA) Atrial Fibrillation, High Cholesterol Neurological: No : No 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 Disorders: Yes 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 History: 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 Sexually Transmitted Disease: No HIV/AIDS: No Genitourinary: No Gastrointestinal: Yes Gastroesophageal Reflux Musculoskeletal: Yes (joint pain) Arthritis, Chronic Back Pain Endocrine: No HEENT: Yes (READING GLASSES) Loss of Vision: Bilateral Hearing Impairment: Denies Cancer: Yes Lung Did You Recieve Any Treatments: Yes What Type of Treatment Did You: Surgical Intervention Psychosocial: Yes Anxiety, Depression Integumentary: No Blood Disorders: No Adverse Reaction/Blood Tranf: No (N/A) Family Medical History FH: lung cancer 19 FATHER 19 MOTHER No Pertinent Family Hx Physical Exam Vital Signs Vital Signs - First Documented 01/17/23 01/17/23 18:56 19:48 Temp 37.3 Pulse 107 Resp 18 B/P (MAP) 101/79 (86) Pulse Ox 89 O2 Delivery Room Air O2 Flow Rate 2.00 Capillary Refill : Height, Weight, BMI Height: 5'5.00" Weight: 179lbs. 2.0oz. [id number]; 28.00 BMI Method:Stated General Appearance: No Apparent Distress HEENT: PERRL/EOMI, TMs Normal, Normal ENT Inspection, Pharynx Normal Neck: Normal Inspection; No JVD Respiratory: No Accessory Muscle Use, No Respiratory Distress; No Crackles, No Stridor; Wheezing Cardiovascular: Regular Rate, Rhythm, No Edema, No Murmur Gastrointestinal: Non Tender, Soft; No Distended Extremity: Normal Inspection, Non Tender, No Pedal Edema Neurologic/Psychiatric: Alert, Oriented x3, No Motor/Sensory Deficits, Normal Mood/Affect Skin: Normal Color, Warm/Dry Progress/Results/Core Measures Suspected Sepsis SIRS Temperature: Pulse: 107 Respiratory Rate: 18 Blood Pressure 101 /79 Mean: 86 Results/Orders Lab Results Laboratory Tests Test 01/17/23 19:47 01/17/23 20:20 Range/Units Urine Color YELLOW Urine Clarity CLEAR Urine pH 7.0 5-9 Urine Specific [place] 1.020 1.016-1.022 Urine Protein NEGATIVE NEGATIVE Urine Glucose (UA) NEGATIVE NEGATIVE Urine Ketones NEGATIVE NEGATIVE Urine Nitrite NEGATIVE NEGATIVE Urine Bilirubin NEGATIVE NEGATIVE Urine Urobilinogen 0.2 < = 1.0 MG/DL Urine Leukocyte Esterase NEGATIVE NEGATIVE Urine RBC (Auto) 1+ H NEGATIVE Urine RBC 0-2 /HPF Urine WBC NONE /HPF Urine Squamous Epithelial Cells 2-5 /HPF Urine Crystals NONE /LPF Urine Bacteria NEGATIVE /HPF Urine Casts NONE /LPF Urine Mucus NEGATIVE /LPF Urine Culture Indicated NO D-Dimer 0.25 0.00-0.49 UG/ML Troponin I < 0.028 <0.028 NG/ML My Orders Orders - ARGENTINA SUMMERS MD Ua Culture If Indicated (01/17/23 19:25) Albuterol/Ipra Inhalation Soln (Duoneb I (01/17/23 19:30) Svn Small Volume Nebulizer (01/17/23 19:25) Ed Iv/Invasive Line Start (01/17/23 20:26) Ekg Tracing (01/17/23 20:26) Monitor-Rhythm Ecg Trace Only (01/17/23 20:26) Fibrin Degradation Products (01/17/23 20:28) Troponin I Tiffanie (01/17/23 20:28) Benzonatate Capsule (Tessalon Rubi) (01/17/23 21:15) Medications Given in ED Current Medications Medications Dose Ordered Sig/Caitlin Route Start Time Stop Time Status Last Admin Dose Admin Albuterol/ Ipratropium 3 ml ONCE ONCE INH 01/17/23 19:30 01/17/23 19:31 DC 01/17/23 19:46 3 ML Benzonatate 200 mg ONCE ONCE PO 01/17/23 21:15 01/17/23 21:16 DC 01/17/23 21:20 200 MG Vital Signs/I&O 01/17/23 01/17/23 01/17/23 01/17/23 18:56 19:48 21:09 21:40 Temp 37.3 Pulse 107 102 Resp 18 22 B/P (MAP) 101/79 (86) 110/72 Pulse Ox 89 95 89 O2 Delivery Room Air Nasal Cannula Nasal Cannula Room Air O2 Flow Rate 2.00 2.00 Capillary Refill : Blood Pressure Mean: 86 Progress Note : Progress Note Work-up from yesterday was reviewed including CBC, chemistry panel, CRP, BNP, chest x-ray, and urinalysis. It was relatively unremarkable. Patient was treated with DuoNeb with moderate improvement in her wheezing. She was offered further evaluation with EKG, D-dimer, and troponin. These were obtained and interpreted by me as unremarkable. See discharge instructions for further discussion. ECG Initial ECG Impression Date: January 17, 2023 Initial ECG Impression Time: 20:54 Initial ECG Rate: 87 Initial ECG Rhythm: Normal Sinus Initial ECG Intervals: Normal Initial ECG Impression: Normal Comment Normal sinus rhythm with no ST elevation or depression. No abnormal intervals or axis deviation. Departure Impression Primary Impression: COPD exacerbation Disposition: 01 HOME, SELF-CARE Condition: Stable Departure-Patient Inst. Decision time for Depature: 21:08 Referrals: SHELLEY ROSENBERG DO (PCP/Family) Primary Care Physician Patient Instructions: Chronic obstructive pulmonary disease (COPD) Add. Discharge Instructions: Continue your medications as prescribed by your kiln door repairer. You may use your nebulizer every 4 hours as needed for shortness of breath and wheezing. Take your prednisone early in the day with food or milk to avoid sleep disturbance and stomach upset. It is very important that you avoid smoking and any secondhand inhaled irritants such as fumes from vaping and secondhand cigarette smoke. Seek assistance from your kiln door repairer or primary care provider to help you quit smoking if needed. Contact your kiln door repairer tomorrow to discuss if further evaluation is warranted during this acute exacerbation of COPD. Your EKG, troponin test for heart damage, and D-dimer test for blood clots were all normal in the emergency room tonight. It would also be advisable to check in with Dr. Chew's office to ensure there were no events on your loop recorder. You may add Tessalon Perles as prescribed for cough suppression. Return to the ER if you have worsening symptoms despite following these instructions. All discharge instructions reviewed with patient and/or family. Voiced understanding. Scripts Benzonatate (Benzonatate) 200 Mg Capsule 200 MG PO Q8H PRN for COUGH, #20 CAP Prov: ARGENTINA SUMMERS MD 01/17/23 Copy Copies To 1: JOSEPHINE VILLALOBOS MD Copies To 2: ROMINA MOODY MD, JOSHUA T MD January 17, 2023 19:26
[2023-01-17] MEDS ORDERED: RT-ALBUTEROL/IPRATROPIUM 3 ML (DUONEB) VIAL INH ONE (19:30)
[2023-01-17 19:52] LABS: BILIRUBIN,URINE NEGATIVE (NEGATIVE); CLARITY,URINE CLEAR; COLOR,URINE YELLOW; GLUCOSE, URINE (UA) NEGATIVE (NEGATIVE); KETONES,URINE NEGATIVE (NEGATIVE); LEUKOCYTE ESTERASE ,URINE NEGATIVE (NEGATIVE); NITRITE,URINE NEGATIVE (NEGATIVE); PROTEIN,URINE NEGATIVE (NEGATIVE)
[2023-01-17 20:03] LABS: BACTERIA,URINE NEGATIVE /HPF; RBC,URINE 0-2 /HPF
[2023-01-17] MEDS ORDERED: BENZ200C51 PO (21:12)
[2023-01-17] MEDS ORDERED: BENZONATATE 100 MG (TESSALON) CAPSULE PO ONE (21:15)
[2023-01-17 21:40] VITALS: BP 110/72
== END 2023-01-17 21:40 | disposition home or self-care (01) ==
LOC: EDUNIT# 18:47 → ER 18:48
DX: J44.1 Chronic obstructive pulmonary disease with (acute) exacerbation (principal); G47.30 Sleep apnea, unspecified; F17.210 Nicotine dependence, cigarettes, uncomplicated; Z79.52 Long term (current) use of systemic steroids; Z79.2 Long term (current) use of antibiotics; Z99.81 Dependence on supplemental oxygen; Z85.118 Personal history of other malignant neoplasm of bronchus and lung
CPT/HCPCS: 36415; 81000; 84484; 85379; 93005; 93041

== ENCOUNTER → 2023-01-17 | Outpatient (CLI) | payer MEDICARE, MEDICAID ==
[~2023-01-17] MED LIST changes: +BENZ200C51 PO; +PROM473S9 PO
--- NOTE | 2023-01-17 17:40 | Diagnostic Imaging Report ---
EXAMINATION: Pelvis, single view. COMPARISON: February 04, 2019. HISTORY: 62-year-old female, pelvic pain. FINDINGS: The pubic symphysis and sacroiliac joints are normally aligned. The hips are not obviously dislocated. There is no joint space loss of either hip. There is disc height loss at L4-L5 and also likely at L5-S1. There are facet degenerative changes at both levels. The sacroiliac joints are unremarkable in appearance. IMPRESSION: 1. No identified acute bony abnormality of the pelvis. 2. Degenerative changes of the lower lumbar spine. Dictated by: Dictated on workstation # [id number]
== END ==
LOC: RAD 15:54
PROVIDERS: ATTEND Neurological Surgery
DX: M47.816 Spondylosis without myelopathy or radiculopathy, lumbar region (principal)
CPT/HCPCS: 72170

== ENCOUNTER 2023-02-01 21:06 | Inpatient (IN) | payer MEDICARE, MEDICAID ==
[~2023-02-01] VITALS: Ht 167.7 cm; Wt 90.4 kg
[~2023-02-01 21:06] MED LIST changes: +BENZ200C51 PO
[2023-02-01] MEDS ORDERED: NS IV 1000 ML 1,000 ML IV SCH ×2 (21:45→22:30)
[2023-02-01] MEDS ORDERED: CEFEPIME INJECTION 1,000 MG in NS (IVPB) 50 ML IV ONE (21:45)
[2023-02-01] MEDS ORDERED: ASPIRIN 81 MG CHEW (CHILDREN'S ASA) PO ONE (21:45)
--- NOTE | 2023-02-01 21:47 | ED General ---
General Chief Complaint: Respiratory Problems Stated Complaint: SOA/NECK/SHOULDER PAIN/COUGH Source of Information: Patient (EDWIGE ON NON-STOP) History of Present Illness Date Seen by Provider: Feb 01, 2023 Time Seen by Provider: 21:37 Initial Comments PT ARRIVES VIA POV FROM HOME PT WITH A MULTITUDE OF COMPLAINTS PT HAS COPD, ADN WAS ADMITTED LAST WEEK AT [facility] IN [place] FOR Allergies and Home Medications Allergies Coded Allergies: No Known Drug Allergies (Unverified , 12/04/18) Patient Home Medication List Acetaminophen (Tylenol Extra Strength) 500 Mg Tablet, 500 MG PO DAILY PRN for PAIN-MILD (1-4), (Reported) Entered as Reported by: KAMRON BEAVER on 09/18/21 1010 Acetylcysteine (Nac) 600 Mg Capsule, 600 MG PO DAILY, (Reported) Entered as Reported by: VICKI ELLIS on 02/17/18 0957 Albuterol Sulfate (Ventolin Hfa) 18 Gm Hfa.aer.ad, 2 PUFF INH Q4H PRN for SHORTNESS OF BREATH, (Reported) Entered as Reported by: SHELLEY IBANEZ on 07/25/17 0936 Amoxicillin/Potassium Clav (Augmentin 875-125 Tablet) 1 Each Tablet, 1 EACH PO BID Prescribed by: HERMAN PALENCIA on 09/18/21 1223 Aspirin (Aspirin EC) 81 Mg Tablet.dr, 81 MG PO DAILY, (Reported) Entered as Reported by: KAMRON BEAVER on 09/18/21 1005 Benzonatate (Benzonatate) 200 Mg Capsule, 200 MG PO Q8H PRN for COUGH Prescribed by: ARGENTINA SANDOVAL on 01/17/232111 Cephalexin (Cephalexin) 500 Mg Tablet, 500 MG PO BID Prescribed by: MARYA BURROWS on 12/06/222044 Cyclosporine (Restasis Multidose) 5.5 Ml Drops, 1 DROP OU DAILY PRN for DRY EYES, (Reported) Entered as Reported by: KAMRON BEAVER on 09/18/21 1005 Dexlansoprazole (Dexilant) 60 Mg Faustino., 60 MG PO DAILY, (Reported) Entered as Reported by: VICKI ELLIS on 02/17/18 0957 Diazepam (Valium) 5 Mg Tablet, 5 MG PO BID PRN for ANXIETY, (Reported) Entered as Reported by: DELVIN CANELA on 09/17/21 1055 Diclofenac Sodium (Voltaren Arthritis Pain) 20 Gm Gel..gram., 1 APPLIC TP PRN PRN for PAIN-MILD (1-4), (Reported) Entered as Reported by: DELVIN CANELA on 09/17/21 1055 Diltiazem HCl (Cartia Xt) 240 Mg Cap.er.24h, 240 MG PO DAILY, (Reported) Entered as Reported by: JOSÉ ORTIZ on 07/09/17 1352 Estradiol (Estradiol Tablet) 1 Mg Tablet, 1.5 MG PO DAILY, (Reported) Entered as Reported by: BURT BULL on 12/04/18 1410 Fexofenadine HCl (Fexofenadine HCl) 180 Mg Tablet, 180 MG PO DAILY, (Reported) Entered as Reported by: SHELLEY IBANEZ on 07/25/17 0936 Fluoxetine HCl (Prozac) 20 Mg Capsule, 20 MG PO DAILY, (Reported) Entered as Reported by: BURT BULL on 12/04/18 1410 Fluticasone Propionate (Fluticasone Propionate) 16 Gm [place].susp, 2 SPRAY NS DAILY, (Reported) Entered as Reported by: SHELLEY IBANEZ on 07/25/17 0936 Fluticasone/Umeclidin/Vilanter (Trelegy Ellipta 200-62.5-25) 1 Each Blst.w.dev, 1 EACH IH, (Reported) Entered as Reported by: DELVIN CANELA on 09/17/21 1055 Hydrocodone Bit/Acetaminophen (HYDROcodone/APAP 10/325 TABLET) 1 Each Tablet, 1 EACH PO Q6H PRN for PAIN-MILD TO MODERATE, (Reported) Entered as Reported by: VICKI ELLIS on 02/17/18 0957 Ibuprofen (Ibuprofen) 200 Mg Tablet, 400 MG PO DAILY PRN for PAIN-MILD (1-4), (Reported) Entered as Reported by: KAMRON BEAVER on 09/18/21 1010 Montelukast Sodium (Montelukast Sodium) 10 Mg Tablet, 10 MG PO HS, (Reported) Entered as Reported by: VICKI ELLIS on 11/29/16 1609 Olopatadine HCl (Pataday Once Daily Relief) 5 Ml Drops, 1 DROP OU DAILY PRN for ALLERGIES, (Reported) Entered as Reported by: KAMRON BEAVER on 09/18/21 1036 Ondansetron (Ondansetron Odt) 4 Mg Tab.rapdis, 4 MG PO Q4H PRN for NAUSEA/VOMITING, (Reported) Entered as Reported by: BURT BULL on 12/04/18 1410 Phenazopyridine HCl (Pyridium) 200 Mg Tablet, 1 TAB PO TID Prescribed by: MARYA BURROWS on 12/06/222044 Pravastatin Sodium (Pravastatin Sodium) 40 Mg Tablet, 40 MG PO HS, (Reported) Entered as Reported by: VICKI ELLIS on 11/29/16 1609 Promethazine HCl/Codeine (Promethazine-Codeine Solution) 6.25 Mg-10 Mg/5 Ml Syrup, 5 ML PO Q8H PRN for COUGH Prescribed by: JOSÉ LICEA on 01/16/23 1433 Roflumilast (Daliresp) 500 Mcg Tablet, 500 MCG PO DAILY, (Reported) Entered as Reported by: BURT BULL on 12/04/18 1410 Tolterodine Tartrate (Detrol) 1 Mg Tablet, 1 MG PO BID Prescribed by: MARYA BURROWS on 12/06/222044 Past Fyqybez-Zuterx-Xlrlis Hx Immunizations Up To Date Tetanus Booster (TDap): Unknown PED Vaccines UTD: No First/Initial COVID19 Vaccinat: 12/2020 Second COVID19 Vaccination Enoc: 01/2021 Third COVID19 Vaccination Date: 12/2020 Seasonal Allergies Seasonal Allergies: Yes Past Medical History Surgery/Hospitalization HX: Spinal fusion 2004, Lobectomy 2008, Breast implants 1996, HYST/ BLADDER SLING, COPD, LUNG CA, GERD Surgeries: Yes (BUNIONECTOMY, NECK FUSION, BREAST IMPLANTS) Bladder Surgery, Breast, Cardiac, Hysterectomy, Lobectomy, Orthopedic Respiratory: Yes ( HX OF LUNG CA, O2 2L NC) Sleep Apnea, COPD Currently Using CPAP: No Currently Using BIPAP: No Cardiac: Yes (TACHYCARDIA) Atrial Fibrillation, High Cholesterol Neurological: No 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 Sexually Transmitted Disease: No HIV/AIDS: No Genitourinary: No Gastrointestinal: Yes Gastroesophageal Reflux Musculoskeletal: Yes (joint pain) Arthritis, Chronic Back Pain Endocrine: No HEENT: Yes (READING GLASSES) Loss of Vision: Bilateral Hearing Impairment: Denies Cancer: Yes Lung Did You Recieve Any Treatments: Yes What Type of Treatment Did You: Surgical Intervention Psychosocial: Yes Anxiety, Depression Integumentary: No Blood Disorders: No Adverse Reaction/Blood Tranf: No (N/A) Family Medical History FH: lung cancer 19 FATHER 19 MOTHER No Pertinent Family Hx Physical Exam Vital Signs Vital Signs - First Documented 02/01/23 21:38 Temp 37.2 Pulse 110 Resp 16 B/P (MAP) 101/61 (74) Pulse Ox 93 O2 Delivery Nasal Cannula O2 Flow Rate 2.00 Capillary Refill : Height, Weight, BMI Height: 5'5.00" Weight: 179lbs. 2.0oz. 81.529447vr; 28.00 BMI Method:Stated Focused Exam Sepsis Stage: Severe Sepsis Possible Source: Pulmonary Lactate Level 02/01/23 21:45: Lactic Acid Level 1.96 Time of Focused Exam: 22:10 Respiratory: Normal Breath Sounds, No Accessory Muscle Use, No Respiratory Distress Cardiovascular: No Edema, No JVD, No Murmur, Normal Peripheral Pulses, Tachycardia Skin: normal color, warm/dry Lactic Acid Level Laboratory Tests Test 02/01/23 21:45 Lactic Acid Level 1.96 MMOL/L (0.50-2.00) Within 3hrs of presentation: Admin fluids, Admin ABX, Blood cultures prior to ABX's, Focus exam, Lactate level Progress/Results/Core Measures Suspected Sepsis SIRS Temperature: Pulse: Respiratory Rate: Laboratory Tests 02/01/23 21:45: White Blood Count 38.9*H Blood Pressure / Mean: 02/01/23 21:45: Lactic Acid Level 1.96 Laboratory Tests 02/01/23 21:45: Creatinine 0.69, INR Comment 0.9, Platelet Count 242, Total Bilirubin 0.7 Results/Orders Lab Results Laboratory Tests Test 02/01/23 21:45 02/01/23 23:28 Range/Units White Blood Count 38.9 *H 4.3-11.0 10^3/uL Red Blood Count 4.38 3.80-5.11 10^6/uL Hemoglobin 14.7 11.5-16.0 g/dL Hematocrit 43 35-52 % Mean Corpuscular Volume 99 80-99 fL Mean Corpuscular Hemoglobin 34 25-34 pg Mean Corpuscular Hemoglobin Concent 34 32-36 g/dL Red Cell Distribution Width 15.0 H 10.0-14.5 % Platelet Count 242 130-400 10^3/uL Mean Platelet Volume 10.8 9.0-12.2 fL Immature Granulocyte % (Auto) 1 % Neutrophils (%) (Auto) 94 H 42-75 % Lymphocytes (%) (Auto) 2 L 12-44 % Monocytes (%) (Auto) 3 0-12 % Eosinophils (%) (Auto) 0 0-10 % Basophils (%) (Auto) 0 0-10 % Neutrophils # (Auto) 36.6 H 1.8-7.8 10^3/uL Lymphocytes # (Auto) 0.6 L 1.0-4.0 10^3/uL Monocytes # (Auto) 1.2 H 0.0-1.0 10^3/uL Eosinophils # (Auto) 0.0 0.0-0.3 10^3/uL Basophils # (Auto) 0.1 0.0-0.1 10^3/uL Immature Granulocyte # (Auto) 0.4 H 0.0-0.1 10^3/uL Neutrophils % (Manual) 92 % Lymphocytes % (Manual) 3 % Monocytes % (Manual) 2 % Band Neutrophils 3 % Erythrocyte Sedimentation Rate 1 0-30 MM/HR Prothrombin Time 12.7 12.2-14.7 SEC INR Comment 0.9 0.8-1.4 Activated Partial Thromboplast Time 25 24-35 SEC Sodium Level 139 135-145 MMOL/L Potassium Level 4.1 3.6-5.0 MMOL/L Chloride Level 104 98-107 MMOL/L Carbon Dioxide Level 22 21-32 MMOL/L Anion Gap 13 5-14 MMOL/L Blood Urea Nitrogen 24 H 7-18 MG/DL Creatinine 0.69 0.60-1.30 MG/DL Estimat Glomerular Filtration Rate 99 BUN/Creatinine Ratio 35 Glucose Level 201 H 70-105 MG/DL Lactic Acid Level 1.96 0.50-2.00 MMOL/L Calcium Level 8.8 8.5-10.1 MG/DL Corrected Calcium 9.0 8.5-10.1 MG/DL Magnesium Level 1.9 1.6-2.4 MG/DL Total Bilirubin 0.7 0.1-1.0 MG/DL Aspartate Amino Transf (AST/SGOT) 12 5-34 U/L Alanine Aminotransferase (ALT/SGPT) 35 0-55 U/L Alkaline Phosphatase 87 40-136 U/L Total Creatine Kinase 55 29-168 U/L Creatine Kinase MB 2.0 <6.6 NG/ML Myoglobin 28.9 10.0-92.0 NG/ML Troponin I < 0.028 <0.028 NG/ML C-Reactive Protein High Sensitivity 7.26 H 0.00-0.50 MG/DL B-Type Natriuretic Peptide 48.8 <100.0 PG/ML Total Protein 6.2 L 6.4-8.2 GM/DL Albumin 3.7 3.2-4.5 GM/DL Amylase Level 30 25-125 U/L Lipase 16 8-78 U/L Serum Alcohol 25 H <10 MG/DL Influenza Type A (RT-PCR) Not Detected Not Detecte Influenza Type B (RT-PCR) Not Detected Not Detecte SARS-CoV-2 RNA (RT-PCR) Not Detected Not Detecte Urine Color YELLOW Urine Clarity CLEAR Urine pH 7.0 5-9 Urine Specific [place] <=1.005 1.016-1.022 Urine Protein NEGATIVE NEGATIVE Urine Glucose (UA) NEGATIVE NEGATIVE Urine Ketones NEGATIVE NEGATIVE Urine Nitrite NEGATIVE NEGATIVE Urine Bilirubin NEGATIVE NEGATIVE Urine Urobilinogen 1.0 < = 1.0 MG/DL Urine Leukocyte Esterase NEGATIVE NEGATIVE Urine RBC (Auto) TRACE-I H NEGATIVE Urine RBC RARE /HPF Urine WBC NONE /HPF Urine Crystals NONE /LPF Urine Bacteria NEGATIVE /HPF Urine Casts NONE /LPF Urine Mucus NEGATIVE /LPF Urine Culture Indicated CULTURE PENDING Urine Opiates Screen POSITIVE H NEGATIVE Urine Oxycodone Screen NEGATIVE NEGATIVE Urine Methadone Screen NEGATIVE NEGATIVE Urine Propoxyphene Screen NEGATIVE NEGATIVE Urine Barbiturates Screen POSITIVE H NEGATIVE Ur Tricyclic Antidepressants Screen NEGATIVE NEGATIVE Urine Phencyclidine Screen NEGATIVE NEGATIVE Urine Amphetamines Screen NEGATIVE NEGATIVE Urine Methamphetamines Screen NEGATIVE NEGATIVE Urine Benzodiazepines Screen POSITIVE H NEGATIVE Urine Cocaine Screen NEGATIVE NEGATIVE Urine Cannabinoids Screen NEGATIVE NEGATIVE My Orders Orders - TAMMIE GOLD DO Ed Iv/Invasive Line Start (02/01/23 21:37) Ekg Tracing (02/01/23 21:37) O2 (02/01/23 21:37) Monitor-Rhythm Ecg Trace Only (02/01/23 21:37) Chest 1 View, Ap/Pa Only (02/01/23 21:37) Bnp Tiffanie (02/01/23 21:37) Cbc With Automated Diff (02/01/23 21:37) Comprehensive Metabolic Panel (02/01/23 21:37) Creatine Kinase (02/01/23 21:37) Creatine Kinase Mb (02/01/23 21:37) Hs C Reactive Protein (02/01/23 21:37) Lactic Acid Analyzer (02/01/23 21:37) Magnesium (02/01/23 21:37) Protime With Inr (02/01/23 21:37) Partial Thromboplastin Time (02/01/23 21:37) Erythrocyte Sedimentation Rate (02/01/23 21:37) Myoglobin Serum (02/01/23 21:37) Troponin I Tiffanie (02/01/23 21:37) Covid 19 Inhouse Test (02/01/23 21:37) Influenza A And B By Pcr (02/01/23 21:37) Aspirin Chewable Tablet (Baby Aspirin Ch (02/01/23 21:45) Blood Culture (02/01/23 21:44) Sputum Culture (02/01/23 21:44) Urinalysis (02/01/23 21:44) Urine Culture (02/01/23 21:44) Ed Iv/Invasive Line Start (02/01/23 21:44) Vital Signs Adult Sepsis Patie Q15M (02/01/23 21:44) Remove Rings In Anticipation O (02/01/23 21:44) Cefepime Injection (Maxipime Injection) (02/01/23 21:45) Ed Iv/Invasive Line Start (02/01/23 21:44) Ns Iv 1000 Ml (Sodium Chloride 0.9%) (02/01/23 21:45) Alcohol (02/01/23 21:47) Amylase (02/01/23 21:47) Drug Screen Stat (Urine) (02/01/23 21:47) Lipase (02/01/23 21:47) Manual Differential (02/01/23 21:45) Ct Angio Chest W (R/O Pe) (02/01/23 22:22) Ed Iv/Invasive Line Start (02/01/23 22:23) Ns Iv 1000 Ml (Sodium Chloride 0.9%) (02/01/23 22:30) Iohexol Injection (Omnipaque 350 Mg/Ml 1 (02/01/23 22:30) Received Contrast (Hold Metformin- Contr (02/01/23 22:30) Ns (Ivpb) (Sodium Chloride 0.9% Ivpb Bag (02/01/23 22:30) Vancomycin Injection (Vancomycin Injecti (02/01/23 23:15) Ed Iv/Invasive Line Start (02/01/23 23:12) Lactated Ringers (Lr 1000 Ml Iv Solution (02/01/23 23:15) Catheter(Urinary) Insert & Ass 03,15 (02/01/23 23:18) Lidocaine 2% (Urojet) (Xylocaine Urojet) (02/01/23 23:30) Dexamethasone Injection (Decadron Injec (02/01/23 23:30) General/Regular (02/01/23 Dinner) Medications Given in ED Current Medications Medications Dose Ordered Sig/Caitlin Route Start Time Stop Time Status Last Admin Dose Admin Aspirin 324 mg ONCE ONCE PO 02/01/23 21:45 02/01/23 21:46 DC 02/01/23 21:50 324 MG Cefepime HCl 1000 mg/Sodium Chloride 50 ml @ 100 mls/hr ONCE ONCE IV 02/01/23 21:45 02/01/23 22:14 DC 02/01/23 23:04 100 MLS/HR Dexamethasone Sodium Phosphate 20 mg ONCE ONCE IV 02/01/23 23:30 02/01/23 23:31 DC 02/01/23 23:38 20 MG Iohexol 100 ml ONCE ONCE IV 02/01/23 22:30 02/01/23 22:31 DC 02/01/23 22:33 80 ML Lactated Ringer's 1,000 ml @ 0 mls/hr Q0M ONCE IV 02/01/23 23:15 02/01/23 23:16 DC 02/02/23 00:23 999 MLS/HR Sodium Chloride 100 ml ONCE ONCE IV 02/01/23 22:30 02/01/23 22:31 DC 02/01/23 22:34 80 ML Vital Signs/I&O 02/01/23 21:38 Temp 37.2 Pulse 110 Resp 16 B/P (MAP) 101/61 (74) Pulse Ox 93 O2 Delivery Nasal Cannula O2 Flow Rate 2.00 02/02/23 00:00 Intake Total 2050 ml Balance 2050 ml Capillary Refill : Progress Note : Progress Note PPE WORN COVID AND FLU TESTING DONE SEPSIS PROTOCOL INITIATED GIVEN: -IV FLUIDS -ANTIBIOTICS -ASPIRIN -DECADRON VITALS ON ARRIVAL: VITALS AT TIME OF ADMIT: TEMP 36.7 =98.0, BP 111/70, HR 91, RR 22, O2 SAT 93% ON 2L/NC NO DETERIORATION IN PT'S CONDITION DURING ER STAY Departure Communication (Admissions) 2305--ATTEMPTING TO CONTACT DR. PALENCIA, HOSPITALIST. MESSAGE LEFT ON CELL 2310--SPOKE WITH DR. PALENCIA, ACCEPTS PT FOR ADMIT. WILL HOLD IN ER TONIGHT, UNTIL ICU BED IS AVAILABLE IN THE MORNING Impression Primary Impression: Severe sepsis Additional Impressions: Pneumonia COPD (chronic obstructive pulmonary disease) Acute respiratory failure with hypoxia Heavy smoker Alcohol use Disposition: ADMITTED INPATIENT Condition: Stable Departure-Patient Inst. Referrals: SHELLEY ROSENBERG DO (PCP/Family) Primary Care Physician TAMMIE GOLD DO Feb 01, 2023 21:47
[2023-02-01 22:06] LABS: BASOPHILS # (AUTO) 0.1 10^3/uL (0.0-0.1); BASOPHILS % (AUTO) 0 % (0-10); EOSINOPHILS % (AUTO) 0 % (0-10); HEMATOCRIT 43 % (35-52); HEMOGLOBIN 14.7 g/dL (11.5-16.0); LYMPHOCYTES # (AUTO) 0.6 10^3/uL (1.0-4.0); LYMPHOCYTES % (AUTO) 2 % (12-44); MEAN CORPUSCULAR HEMOGLOBIN 34 pg (25-34); MEAN CORPUSCULAR HGB CONC 34 g/dL (32-36); MEAN CORPUSCULAR VOLUME 99 fL (80-99); MEAN PLATELET VOLUME 10.8 fL (9.0-12.2); MONOCYTES # (AUTO) 1.2 10^3/uL (0.0-1.0); MONOCYTES % (AUTO) 3 % (0-12); NEUTROPHILS # (AUTO) 36.6 10^3/uL (1.8-7.8); NEUTROPHILS % (AUTO) 94 % (42-75); PLATELET COUNT 242 10^3/uL (130-400)
[2023-02-01 22:08] LABS: WHITE BLOOD COUNT 38.9 10^3/uL (4.3-11.0)
--- NOTE | 2023-02-01 22:09 | Diagnostic Imaging Report ---
CLINICAL INDICATIONS: Patient with chest pain. EXAM: Portable chest x-ray upright view. COMPARISON: Chest x-ray dated 01/16/2023. FINDINGS: There is interval development of patchy left lung base consolidation and left pleural effusion. The remainder of the lungs are clear. Stable prominence of the right perihilar region with the appearance of surgical clips in the region which may be related to postop changes. There is also surgical clips in the right mediastinal region. Lucent changes in the right upper lobe seen which may be related to emphysema. Pulmonary vasculature and cardiac silhouette are otherwise within normal limits. Loop recorder is again seen overlying left chest. IMPRESSION: 1: There is interval development of left lung base pneumonia and left pleural effusion. 2: The remainder of this exam shows no significant interval change compared to the prior study of comparison. Dictated by: Dictated on workstation # [id number]
[2023-02-01 22:14] LABS: ALBUMIN 3.7 GM/DL (3.2-4.5); CHLORIDE 104 MMOL/L (98-107); POTASSIUM 4.1 MMOL/L (3.6-5.0); SODIUM 139 MMOL/L (135-145)
[2023-02-01 22:15] LABS: CALCIUM 8.8 MG/DL (8.5-10.1)
[2023-02-01 22:16] LABS: AMYLASE 30 U/L (25-125)
[2023-02-01 22:17] LABS: GLUCOSE 201 MG/DL (70-105); INR 0.9 (0.8-1.4); PROTHROMBIN TIME PATIENT 12.7 SEC (12.2-14.7); TOTAL PROTEIN 6.2 GM/DL (6.4-8.2)
[2023-02-01 22:18] LABS: BILIRUBIN,TOTAL 0.7 MG/DL (0.1-1.0); CARBON DIOXIDE 22 MMOL/L (21-32)
[2023-02-01 22:20] LABS: ALKALINE PHOSPHATASE 87 U/L (40-136)
[2023-02-01 22:21] LABS: CREATININE SERUM 0.69 MG/DL (0.60-1.30); GFR ESTIMATED 99
[2023-02-01 22:22] LABS: BUN/CREATININE RATIO 35
[2023-02-01 22:23] LABS: MAGNESIUM 1.9 MG/DL (1.6-2.4)
[2023-02-01 22:24] LABS: ALANINE AMINOTRANSFERASE 35 U/L (0-55)
[2023-02-01 22:25] LABS: CREATINE KINASE 55 U/L (29-168); LIPASE 16 U/L (8-78)
[2023-02-01 22:29] LABS: BAND NEUTROPHILS 3 %; LYMPHOCYTES % (MANUAL) 3 %; MONOCYTES % (MANUAL) 2 %; NEUTROPHILS % (MANUAL) 92 %
[2023-02-01] MEDS ORDERED: HOLD METFORMIN - RECEIVED CONTRAST 20 ML VIAL IV SCH (22:30)
[2023-02-01] MEDS ORDERED: IOHEXOL 350 MG/ML 100 ML (OMNIPAQUE 350) VIAL IV ONE (22:30)
[2023-02-01] MEDS ORDERED: NS 100 ML (IVPB) BAG IV ONE (22:30)
[2023-02-01 22:31] LABS: ERYTHROCYTE SEDIMENTATION RATE 1 MM/HR (0-30)
[2023-02-01] MEDS ORDERED: LACTATED RINGERS 1,000 ML IV ONE (23:15)
[2023-02-01] MEDS ORDERED: LIDOCAINE UROJET 2% GEL 10 ML PKG TOP ONE (23:30)
[2023-02-01 23:35] LABS: BILIRUBIN,URINE NEGATIVE (NEGATIVE); CLARITY,URINE CLEAR; COLOR,URINE YELLOW; GLUCOSE, URINE (UA) NEGATIVE (NEGATIVE); KETONES,URINE NEGATIVE (NEGATIVE); LEUKOCYTE ESTERASE ,URINE NEGATIVE (NEGATIVE); NITRITE,URINE NEGATIVE (NEGATIVE); PROTEIN,URINE NEGATIVE (NEGATIVE)
[2023-02-02 00:05] LABS: BENZODIAZEPINES SCREEN URINE POSITIVE (NEGATIVE)
[2023-02-02 00:06] LABS: AMPHETAMINE SCREEN, URINE NEGATIVE (NEGATIVE); BACTERIA,URINE NEGATIVE /HPF; BARBITURATE SCREEN URINE POSITIVE (NEGATIVE); CANNABINOID SCREEN, URINE NEGATIVE (NEGATIVE); COCAINE SCREEN URINE NEGATIVE (NEGATIVE); METHADONE STAT NEGATIVE (NEGATIVE); OPIATE SCREEN URINE POSITIVE (NEGATIVE); OXYCODONE STAT NEGATIVE (NEGATIVE); PROPOXYPHENE STAT NEGATIVE (NEGATIVE); RBC,URINE RARE /HPF; TRICYCLIC ANTIDEPRESSANTS SCRE NEGATIVE (NEGATIVE)
[2023-02-02] MEDS: VANCOMYCIN INJECTION 750 MG in NS (IVPB) 250 ML IV SCH ×2 (00:22→01:46)
[2023-02-02 03:59] VITALS: BP 104/63
[2023-02-02] MEDS ORDERED: RT-ALBUTEROL/IPRATROPIUM 3 ML (DUONEB) VIAL INH PRN (04:15)
[2023-02-02 04:56] LABS: BASOPHILS # (AUTO) 0.1 10^3/uL (0.0-0.1); BASOPHILS % (AUTO) 0 % (0-10); EOSINOPHILS % (AUTO) 0 % (0-10); HEMATOCRIT 41 % (35-52); HEMOGLOBIN 13.7 g/dL (11.5-16.0); LYMPHOCYTES # (AUTO) 0.4 10^3/uL (1.0-4.0); LYMPHOCYTES % (AUTO) 1 % (12-44); MEAN CORPUSCULAR HEMOGLOBIN 34 pg (25-34); MEAN CORPUSCULAR HGB CONC 34 g/dL (32-36); MEAN CORPUSCULAR VOLUME 100 fL (80-99); MEAN PLATELET VOLUME 10.8 fL (9.0-12.2); MONOCYTES # (AUTO) 0.3 10^3/uL (0.0-1.0); MONOCYTES % (AUTO) 1 % (0-12); NEUTROPHILS # (AUTO) 38.4 10^3/uL (1.8-7.8); NEUTROPHILS % (AUTO) 97 % (42-75); PLATELET COUNT 215 10^3/uL (130-400)
[2023-02-02 05:15] LABS: ALBUMIN 3.4 GM/DL (3.2-4.5); BILIRUBIN,TOTAL 0.5 MG/DL (0.1-1.0); CALCIUM 8.4 MG/DL (8.5-10.1); CREATININE SERUM 0.72 MG/DL (0.60-1.30); MAGNESIUM 1.8 MG/DL (1.6-2.4); PHOSPHORUS 2.4 MG/DL (2.3-4.7); POTASSIUM 4.5 MMOL/L (3.6-5.0); TOTAL PROTEIN 5.8 GM/DL (6.4-8.2)
[2023-02-02 05:20] LABS: WHITE BLOOD COUNT 39.4 10^3/uL (4.3-11.0)
[2023-02-02] MEDS ORDERED: NS IV 500 ML 500 ML IV PRN (05:45)
[2023-02-02] MEDS ORDERED: IBUPROFEN 800 MG (MOTRIN) TAB PO PRN (06:00)
[2023-02-02] MEDS ORDERED: KCL 20 MEQ TAB (K-DUR) PO SCH (06:00)
[2023-02-02] MEDS ORDERED: MAGNESIUM 1 GM/100 ML IVPB 100 ML IV SCH (06:00)
[2023-02-02] MEDS ORDERED: ACETAMINOPHEN 500 MG TAB (TYLENOL) PO PRN (06:00)
[2023-02-02] MEDS ORDERED: CEFEPIME INJECTION 1,000 MG in NS (IVPB) 50 ML IV SCH (06:00)
[2023-02-02] MEDS ORDERED: EPINEPHrine 1 MG INJECTION 4 MG in NS (IVPB) 248 ML IV SCH (06:00)
[2023-02-02] MEDS ORDERED: VASOPRESSIN INJECTION 20 UNIT in NS (IVPB) 100 ML IV SCH (06:00)
[2023-02-02] MEDS ORDERED: ONDANSETRON 4 MG/2 ML (SDV) Z0FRAN IV PRN (06:00)
[2023-02-02] MEDS ORDERED: NOREPINEPHRINE 8 MG/250 ML 250 ML IV SCH (06:00)
[2023-02-02] MEDS ORDERED: POTASSIUM CL 10MEQ/50ML IVPB 50 ML IV SCH (06:00)
[2023-02-02] MEDS: LACTATED RINGERS 1,000 ML IV SCH ×3 (06:03→21:29)
[2023-02-02] MEDS: MAGNESIUM 1 GM/100 ML IVPB 100 ML IV SCH (06:04)
[2023-02-02] MEDS: RT-ALBUTEROL/IPRATROPIUM 3 ML (DUONEB) VIAL INH SCH ×4 (06:46→19:38)
--- NOTE | 2023-02-02 07:28 | Diagnostic Imaging Report ---
INDICATION: Chest pain and pneumonia. TECHNIQUE: After intravenous administration of contrast, thin section axial CT angiography of the chest was performed. 3D MIP reconstructions were made. All CT scans use one or more of the following dose optimizing techniques: automated exposure control, MA and/or KvP adjustment based on a patient size and exam type, or iterative reconstruction. COMPARISON is made with prior study from 06/28/2019. Evaluation of the pulmonary arterial system is without evidence of thromboembolism. No definite filling defects are seen within central, lobar and segmental branches. Pulmonary arteries do appear to be somewhat dilated centrally, perhaps on the basis of pulmonary hypertension. The thoracic aorta is normal caliber. There is no dissection. No pericardial or pleural fluid is identified. No hemothorax is identified. There is intracapsular rupture of the left breast implant. The upper abdomen is unremarkable. IMPRESSION: 1. No evidence of pulmonary embolism or acute aortic disease. There is some dilatation of the central pulmonary arteries, perhaps on the basis of pulmonary arterial hypertension. 2. Extensive left lower lobe pneumonia. Emphysematous changes are noted, greatest in the right upper lobe. There is extensive airspace infiltrate consolidation in the left lower lobe suggestive of pneumonia. There is some lesser infiltrate in the right lower lobe. Dictated by: Dictated on workstation # [id number]
[2023-02-02] MEDS: NICOTINE 21 MG (NICODERM) PATCH TD SCH (08:11)
[2023-02-02] MEDS: VANCOMYCIN 1250 MG/NS 250 ML PREMIX IV SCH ×2 (08:11→21:29)
[2023-02-02] MEDS: PANTOPRAZOLE 40 MG (PROTONIX) TAB PO SCH (09:04)
[2023-02-02] MEDS: THIAMINE 100 MG (VITAMIN B-1) TAB PO SCH (09:04)
--- NOTE | 2023-02-02 09:44 | Tele-ICU Consult ---
History of Present Illness History of Present Illness Date Seen by Provider: Feb 02, 2023 Time Seen by Provider: 09:44 Date of Admission History of Present Illness (Tele-ICU Physician , consultation as per request of PCP Service provided via interactive audio and video telecommunications E-CARE system to a patient admitted to ICU bed in [facility]. Available chart/ vitals / labs / Images reviewed H&P is from ER notes Patient's information available about PMH, Shx, Fhx allergy reviewed inEMR. ROS as per chart and RN report Now in ICU, hemodynamically stable Video assessment done using teleICU camera, rest of exam as per RN Discussed with RN. Hospital course: (02/02) 62yF Admit severe sepsis, PNA, COPD, acute resp failure w/hypoxia A/P Acute on chronic resp failure with PNA and AECOPD - improved with current regiment AECOPD - nebs , steroids IV COPD baseline with severe bullous emphysema RUL -prolonged sterid course last few weeks -chronic hypoxia - started on o2 recently after PSG ( no CPAP - presumed no JAJA ) PNA LLL , possible HAP (given recent amission - new comparing with 01/16/23 cxr -- covid , flu NEG - vanco , cefepime Leukocytosis- severe with PNA and sterids - follow Diarrhea LUMBER STRAIGHTENED - h/o c diff in distant past - no loose BM - - need prophylaxis? - start probiotics Hemoptysis reported LUMBER STRAIGHTENED- most likely due to PNA - none since admission h/o lung CA - Lobectomy 2008 ETON use few time a week - vitamins Hyperglycemia - with steroids - fololow with accuchecks ECHO 2021 - EF 50% , RVSP 35 mmHg Lines : periph , (Central Line Necessity Reviewed) Simmons: 02/01 OG: Nutrition: po Analgesia: Anxiety/ delirium VTE Prophylaxis: SCD , hold with hemoptysis for now Stress Ulcer Prophylaxis: ppi Plans in collaboration with bedside consultants and IM MDs. Discussed with RN to reach out if any questions or concerns A total of _33minutes of critical care time was devoted to this patient today, required to treat and/or prevent further deterioration of critical care condition ( as above ) . I am remotely monitoring this patient from another state. I am unable to do the bedside exam, and history/physical and pertinent information is taken from other notes in the computer and bedside staff. . Allergies and Home Medications Allergies Coded Allergies: No Known Drug Allergies (Unverified , 12/04/18) Home Medications Acetaminophen 500 Mg Tablet, 500 MG PO DAILY PRN for PAIN-MILD (1-4), (Reported) Acetylcysteine 600 Mg Capsule, 600 MG PO DAILY, (Reported) Albuterol Sulfate 18 Gm Hfa.aer.ad, 2 PUFF INH Q4H PRN for SHORTNESS OF BREATH, (Reported) Amoxicillin/Potassium Clav 1 Each Tablet, 1 EACH PO BID Prescribed by: HERMAN PALENCIA on 09/18/21 1223 Aspirin 81 Mg Tablet.dr, 81 MG PO DAILY, (Reported) Benzonatate 200 Mg Capsule, 200 MG PO Q8H PRN for COUGH Prescribed by: ARGENTINA SANDOVAL on 01/17/232111 Cephalexin 500 Mg Tablet, 500 MG PO BID Prescribed by: MARYA BURROWS on 12/06/222044 Cyclosporine 5.5 Ml Drops, 1 DROP OU DAILY PRN for DRY EYES, (Reported) Dexlansoprazole 60 Mg Cap.bp, 60 MG PO DAILY, (Reported) Diazepam 5 Mg Tablet, 5 MG PO BID PRN for ANXIETY, (Reported) Diclofenac Sodium 20 Gm Gel..gram., 1 APPLIC TP PRN PRN for PAIN-MILD (1-4), (Reported) Diltiazem HCl 240 Mg Cap.er.24h, 240 MG PO DAILY, (Reported) Estradiol 1 Mg Tablet, 1.5 MG PO DAILY, (Reported) TAKES 1 AND 1/2 OF A 1MG TAB Fexofenadine HCl 180 Mg Tablet, 180 MG PO DAILY, (Reported) Fluoxetine HCl 20 Mg Capsule, 20 MG PO DAILY, (Reported) Fluticasone Propionate 16 Gm Presho.susp, 2 SPRAY NS DAILY, (Reported) Hydrocodone Bit/Acetaminophen 1 Each Tablet, 1 EACH PO Q6H PRN for PAIN-MILD TO MODERATE, (Reported) Ibuprofen 200 Mg Tablet, 400 MG PO DAILY PRN for PAIN-MILD (1-4), (Reported) TAKES 2 (200MG) TAB Montelukast Sodium 10 Mg Tablet, 10 MG PO HS, (Reported) Olopatadine HCl 5 Ml Drops, 1 DROP OU DAILY PRN for ALLERGIES, (Reported) Ondansetron 4 Mg Tab.rapdis, 4 MG PO Q4H PRN for NAUSEA/VOMITING, (Reported) Phenazopyridine HCl 200 Mg Tablet, 1 TAB PO TID Prescribed by: MARYA BURROWS on 12/06/222044 Pravastatin Sodium 40 Mg Tablet, 40 MG PO HS, (Reported) Promethazine HCl/Codeine 6.25 Mg-10 Mg/5 Ml Syrup, 5 ML PO Q8H PRN for COUGH Prescribed by: JOSÉ LICEA on 01/16/23 1433 Roflumilast 500 Mcg Tablet, 500 MCG PO DAILY, (Reported) Tolterodine Tartrate 1 Mg Tablet, 1 MG PO BID Prescribed by: MARYA BURROWS on 12/06/222044 Past Medical/Social/Family Hx Patient Social History Tobacco Use?: Yes Tobacco type used: Cigarettes Smoking Status: Current Someday Smoker Use of E-Cig and/or Vaping dev: Yes E-Cig or Vaping type used: Nicotine E-Cig and/or Vaping Freq: Light User Substance use?: No Alcohol Use?: Yes Alcohol type: Hard Liquor Alcohol Frequency: Couple times a week Pt stated abuse/neglect: No Immunizations Up To Date Influenza Vaccine Up-to-Date: Yes; Up-to-Date First/Initial COVID19 Vaccinat: 12/2020 Second COVID19 Vaccination Enoc: 01/2021 Tetanus Booster (TDap): Unknown Hepatitis A: Yes Hepatitis B: Yes TB Skin Test: Negative Date of Pneumonia Vaccine: Oct 24, 2013 Current Status status: No status: No Advance Directives: No Communicates: Verbally Primary Language: Tongan Preferred Spoken Language: Tongan Is interpretation needed?: No Implanted or Applied Medical D: Other Review of Systems Constitutional: see HPI Focused Exam Lactate Level 02/01/23 21:45: Lactic Acid Level 1.96 Height, Weight, BMI Height: 5'5.00" Weight: 179lbs. 2.0oz. 81.584406xk; 32.14 BMI Method:Stated Time of Focused Exam: 22:10 Exam Exam Patient acknowledged, consented, and participated in this virtual visit which was conducted using real time audio/video Vital Signs Date Time Temp Pulse Resp B/P (MAP) Pulse Ox O2 Delivery O2 Flow Rate FiO2 02/02/23 08:00 103 20 98/81 (83) 94 Nasal Cannula 2.00 6/10/23 07:56 36.4 02/02/23 07:00 95 29 100/77 (84) 100 Nasal Cannula 2.00 02/02/23 07:00 101 02/02/23 06:46 94 Nasal Cannula 2.00 02/02/23 06:00 90 102/66 (78) 94 Nasal Cannula 2.00 02/02/23 05:00 94 30 105/60 (75) 92 Nasal Cannula 2.00 02/02/23 04:30 92 30 108/61 (77) 92 Nasal Cannula 2.00 02/02/23 04:22 97 Nasal Cannula 1.00 02/02/23 04:00 96 24 108/67 (81) 93 Nasal Cannula 2.00 02/02/23 03:59 36.7 93 95 24 02/02/23 03:45 88 104/63 (77) 95 Nasal Cannula 2.00 02/02/23 03:30 94 Nasal Cannula 2.00 02/02/23 03:30 95 109/68 (82) 95 Nasal Cannula 2.00 02/02/23 03:29 92 02/02/23 03:15 95 116/70 (85) 95 Nasal Cannula 2.00 02/02/23 03:14 36.7 101 16 111/70 94 Nasal Cannula 4.00 02/01/23 21:38 37.2 110 16 101/61 (74) 93 Nasal Cannula 2.00 I & O 02/02/23 07:00 Intake Total 3500 ml Output Total 1300 ml Balance 2200 ml Height & Weight Height: 5'5.00" Weight: 179lbs. 2.0oz. 81.401642qp; 32.14 BMI Method:Stated General Appearance: Other Respiratory: Normal Breath Sounds, No Accessory Muscle Use, No Respiratory Distress Cardiovascular: No Edema, No JVD, No Murmur, Normal Peripheral Pulses, Tachycardia Results Lab Laboratory Tests 02/01/23 21:45 02/02/23 04:38 Assessment/Plan Assessment/Plan 1 TOÑA VILLANUEVA MD Feb 02, 2023 09:44
--- NOTE | 2023-02-02 09:57 | Diagnostic Imaging Report ---
Indication: Sepsis and pneumonia. Time of Exam: 4:15 AM Correlation is made with prior chest one day earlier. Heart size is stable. Parenchymal consolidation in the left base persists. Postoperative changes right hilum and right paramediastinal region is again noted with emphysematous changes in the right upper chest. Cardiac loop recorder overlies the left chest. There is central vascularity prominence. No pneumothorax is seen. IMPRESSION: Overall stable chest since examination one day earlier. Dictated by: Dictated on workstation # [id number]
[2023-02-02] MEDS ORDERED: PIPERACILLIN SODIUM/TAZOBACTAM 4.5 GM in NS (IVPB) 100 ML IV SCH (10:15)
[2023-02-02] MEDS ORDERED: PIPERACILLIN SODIUM/TAZOBACTAM 4.5 GM in NS (IVPB) 100 ML IV ONE (10:45)
[2023-02-02 11:08] VITALS: BP 141/66
[2023-02-02 11:26] VITALS: BP 141/66
[2023-02-02] MEDS: NYSTATIN ORAL SUSP 5 ML UDC PO SCH ×2 (12:41→18:06)
[2023-02-02] MEDS: LACTOBACILLUS ACIDOPHILUS (PROBIOTIC) CAPSULE PO SCH ×2 (12:41→18:06)
[2023-02-02] MEDS ORDERED: LACTOBACILLUS ACIDOPHILUS (PROBIOTIC) CAPSULE PO SCH (13:00)
--- NOTE | 2023-02-02 16:12 | History & Physical-Hospitalist ---
History of Present Illness HPI/Chief Complaint Britta Clarke is a 62 year old female with PMH COPD, AFib, history of lung cancer s/p right middle lobe lobectomy, who presented with shortness of breath. She has also had a cough and hemoptysis. She denies fevers and chills. She reports malaise. She reports dyspnea with exertion. She denies chest pain. She was recently admitted in [place] with a COPD exacerbation. She got worse a couple days ago. She thinks she may have aspirated. She reports issues with dysphagia and has seen Dr. Moody. She was also recently started on nocturnal oxygen. Source: patient Exam Limitations: no limitations Date Seen 02/02/23 Time Seen by a Provider: 09:45 Attending Physician Brit Anderson DO PCP Admitting Physician: Herman Palencia MD Attending Physician: Herman Palencia MD Referring Physician Date of Admission Feb 02, 2023 at 03:07 Home Medications & Allergies Home Medications Reviewed patient Home Medication Reconciliation performed by pharmacy medication reconciliations health technician and/or nursing. Patients Allergies have been reviewed. Allergies Allergies Coded Allergies No Known Drug Allergies (Unverified12/04/18) Past Pwppeja-Jecnam-Aaaytp Hx Patient Social History Tobacco Use?: Yes Tobacco type used: Cigarettes Smoking Status: Current Someday Smoker Use of E-Cig and/or Vaping dev: Yes E-Cig or Vaping type used: Nicotine Use of E-Cig and/or Vaping James: Light User Substance use?: No Alcohol Use?: Yes Alcohol type: Hard Liquor Alcohol Frequency: Couple times a week Pt feels they are or have been: No Immunizations Up To Date Date of Influenza Vaccine: Jun 02, 2018 First/Initial COVID19 Vaccinat: 12/2020 Second COVID19 Vaccination Enoc: 01/2021 Tetanus Booster (TDap): Unknown Hepatitis A: Yes Hepatitis B: Yes PED Vaccines UTD: No Date of Pneumonia Vaccine: Oct 24, 2013 Seasonal Allergies Seasonal Allergies: Yes Current Status status: No status: No Advance Directives: No Communicates: Verbally Primary Language: Armenian Preferred Spoken Language: Armenian Is interpretation needed?: No Implanted or Applied Medical D: Other Past Medical History Surgeries: Bladder Surgery, Breast, Cardiac, Hysterectomy, Lobectomy, Orthopedic Sleep Apnea, COPD Currently Using CPAP: No Currently Using BIPAP: No Atrial Fibrillation, High Cholesterol [employer] History: Menopausal Sexually Transmitted Disease: No HIV/AIDS: No Gastroesophageal Reflux Arthritis, Chronic Back Pain Loss of Vision: Bilateral Hearing Impairment: Denies Lung Did You Recieve Any Treatments: Yes What Type of Treatment Did You: Surgical Intervention Anxiety, Depression Blood Disorders: No Adverse Reaction/Blood Tranf: No (N/A) Family Medical History FH: lung cancer 19 FATHER 19 MOTHER No Pertinent Family Hx Review of Systems Constitutional: malaise, weakness Respiratory: cough, dyspnea on exertion, hemoptysis, short of breath Cardiovascular: no symptoms reported Gastrointestinal: diarrhea Physical Exam Physical Exam Vital Signs Vital Signs - First Documented 02/01/23 02/02/23 21:38 03:59 Temp 37.2 Pulse 110 Resp 16 B/P (MAP) 101/61 (74) Pulse Ox 93 O2 Delivery Nasal Cannula O2 Flow Rate 2.00 FiO2 24 Capillary Refill : Height, Weight, BMI Height: 5'5.00" Weight: 179lbs. 2.0oz. 81.738049bh; 32.14 BMI Method:Stated General Appearance: No Apparent Distress, WD/WN HEENT: PERRL/EOMI, Pharynx Normal Neck: Normal Inspection, Supple Respiratory: Crackles, Decreased Breath Sounds, Respiratory Distress (tachypnea) Cardiovascular: No Murmur, Tachycardia Gastrointestinal: Normal Bowel Sounds, Non Tender, Soft Extremity: Normal Inspection, No Pedal Edema Neurologic/Psychiatric: Alert, Oriented x3, No Motor/Sensory Deficits, Normal Mood/Affect Skin: Normal Color, Warm/Dry Results Results/Procedures Labs Laboratory Tests 02/01/23 21:45 02/02/23 04:38 Patient resulted labs reviewed. Imaging: Reviewed Imaging Films, Reviewed Imaging Report Assessment/Plan Admission Diagnosis Sepsis due to pneumonia Admission Status: Inpatient Order (span 2 midnights) Reason for Inpatient Admission: IV antibiotics Assessment and Plan Sepsis due to pneumonia Possible aspiration COPD Acute on chronic respiratory failure with hypoxia History of lung cancer Alcohol abuse Significantly elevated WBC, hemoptysis CT with left lower lobe consolidation, minimal right lower lobe infiltrate IV fluids Started on Vanc and Cefepime Transition to Zosyn for possible aspiration Supplemental oxygen as needed, on 2 L Transfer to medical floor DVT prophylaxis: Lovenox Diagnosis/Problems Diagnosis/Problems (1) Sepsis due to pneumonia Status: Acute (2) Hemoptysis Status: Acute (3) Aspiration pneumonia Status: Acute (4) COPD (chronic obstructive pulmonary disease) Status: Chronic (5) Alcohol use Status: Acute (6) History of lung cancer Status: Chronic (7) S/P lobectomy of lung Status: Chronic HERMAN PALENCIA MD Feb 02, 2023 16:12
[2023-02-02] MEDS: PIPERACILLIN SODIUM/TAZOBACTAM 4.5 GM in NS (IVPB) 100 ML IV SCH (16:16)
[2023-02-02 16:35] VITALS: BP 112/57
[2023-02-02] MEDS: ENOXAPARIN 40 MG/0.4 ML (LOVENOX) SYR SC SCH (18:05)
[2023-02-02 19:39] VITALS: BP 124/66
[2023-02-02] MEDS: MONTELUKAST 10 MG (SINGULAIR) TAB PO SCH ×2 (20:10→21:29)
[2023-02-02] MEDS: CLOTRIMAZOLE 1% CREAM (LOTRIMIN) 30 GM TOP SCH (21:34)
[2023-02-02 23:10] VITALS: BP 110/62
[2023-02-03] VITALS (7 sets, daily range): BP systolic 104–158; BP diastolic 57–97
[2023-02-03] MEDS: NYSTATIN ORAL SUSP 5 ML UDC PO SCH ×5 (00:30→23:12)
[2023-02-03] MEDS: PIPERACILLIN SODIUM/TAZOBACTAM 4.5 GM in NS (IVPB) 100 ML IV SCH ×3 (00:30→15:50)
[2023-02-03] MEDS: THIAMINE 100 MG (VITAMIN B-1) TAB PO SCH (06:03)
[2023-02-03 06:25] LABS: BASOPHILS % (AUTO) 0 % (0-10); EOSINOPHILS # (AUTO) 0.1 10^3/uL (0.0-0.3); EOSINOPHILS % (AUTO) 1 % (0-10); HEMATOCRIT 38 % (35-52); HEMOGLOBIN 12.9 g/dL (11.5-16.0); LYMPHOCYTES # (AUTO) 1.6 10^3/uL (1.0-4.0); LYMPHOCYTES % (AUTO) 6 % (12-44); MEAN CORPUSCULAR HEMOGLOBIN 34 pg (25-34); MEAN CORPUSCULAR HGB CONC 34 g/dL (32-36); MEAN CORPUSCULAR VOLUME 100 fL (80-99); MEAN PLATELET VOLUME 10.8 fL (9.0-12.2); MONOCYTES # (AUTO) 1.2 10^3/uL (0.0-1.0); MONOCYTES % (AUTO) 5 % (0-12); NEUTROPHILS # (AUTO) 22.4 10^3/uL (1.8-7.8); NEUTROPHILS % (AUTO) 87 % (42-75); PLATELET COUNT 220 10^3/uL (130-400); WHITE BLOOD COUNT 25.7 10^3/uL (4.3-11.0)
[2023-02-03 06:37] LABS: CALCIUM 8.8 MG/DL (8.5-10.1); CREATININE SERUM 0.73 MG/DL (0.60-1.30); POTASSIUM 4.6 MMOL/L (3.6-5.0)
[2023-02-03] MEDS: RT-ALBUTEROL/IPRATROPIUM 3 ML (DUONEB) VIAL INH SCH ×4 (08:17→19:17)
[2023-02-03] MEDS: FLUTICASONE/VILANTEROL 200 MCG 14'S (BREO) IH SCH (08:17)
[2023-02-03] MEDS: LACTOBACILLUS ACIDOPHILUS (PROBIOTIC) CAPSULE PO SCH ×3 (09:13→18:19)
[2023-02-03] MEDS: PANTOPRAZOLE 40 MG (PROTONIX) TAB PO SCH (09:13)
[2023-02-03] MEDS: ESTRADIOL 1 MG TAB (ESTRACE) PO SCH (09:13)
[2023-02-03] MEDS: NICOTINE 21 MG (NICODERM) PATCH TD SCH (09:13)
[2023-02-03] MEDS: VANCOMYCIN 1250 MG/NS 250 ML PREMIX IV SCH ×2 (09:14→20:35)
[2023-02-03] MEDS: CLOTRIMAZOLE 1% CREAM (LOTRIMIN) 30 GM TOP SCH ×2 (09:18→19:53)
--- NOTE | 2023-02-03 14:32 | Progress Note - Hospitalist ---
Subjective HPI/CC On Admission Date Seen by Provider: Feb 03, 2023 Time Seen by Provider: 11:20 Britta Clarke is a 62 year old female with PMH COPD, AFib, history of lung cancer s/p right middle lobe lobectomy, who presented with shortness of breath. She has also had a cough and hemoptysis. She denies fevers and chills. She re ports malaise. She reports dyspnea with exertion. She denies chest pain. She was recently admitted in [place] with a COPD exacerbation. She got worse a couple days ago. She thinks she may have aspirated. She reports issues with dysphagia and has seen Dr. Moody. She was also recently started on nocturnal oxygen. Subjective/Events-last exam She is feeling better. She denies shortness of breath. She is still having cough and sputum production. It is no longer bloody. Focused Exam Lactate Level 02/01/23 21:45: Lactic Acid Level 1.96 Time of Focused Exam: 22:10 Objective Exam Vital Signs Vital Signs Date Time Temp Pulse Resp B/P (MAP) Pulse Ox O2 Delivery O2 Flow Rate FiO2 02/03/23 13:49 158/97 (117) 02/03/23 11:45 37.6 106 20 93 Room Air 02/03/23 11:43 0.00 02/02/23 11:26 28 Capillary Refill : General Appearance: No Apparent Distress, Obese Respiratory: No Respiratory Distress, Wheezing Cardiovascular: Regular Rate, Rhythm, No Murmur Gastrointestinal: Normal Bowel Sounds, Soft Extremity: Normal Inspection, No Pedal Edema Neurologic/Psychiatric: Alert, Normal Mood/Affect Skin: Normal Color, Warm/Dry Results/Procedures Lab Laboratory Tests 02/03/23 05:38 Patient resulted labs reviewed. Imaging: Reviewed Imaging Films, Reviewed Imaging Report Assessment/Plan Assessment and Plan Assess & Plan/Chief Complaint Sepsis due to MRSA pneumonia Possible aspiration COPD Acute on chronic respiratory failure with hypoxia History of lung cancer Alcohol abuse Significantly elevated WBC, hemoptysis CT with left lower lobe consolidation, minimal right lower lobe infiltrate Vanc and Zosyn, await final culture results Supplemental oxygen as needed, on room air now Likely discharge home tomorrow DVT prophylaxis: Lovenox Diagnosis/Problems Diagnosis/Problems (1) MRSA pneumonia Status: Acute Qualifiers: Laterality: left Lung location: lower lobe of lung Qualified Codes: J15.212 - Pneumonia due to methicillin resistant Staphylococcus aureus (2) Sepsis due to pneumonia Status: Acute (3) Hemoptysis Status: Acute (4) Aspiration pneumonia Status: Acute (5) COPD (chronic obstructive pulmonary disease) Status: Chronic (6) Alcohol use Status: Acute (7) History of lung cancer Status: Chronic (8) S/P lobectomy of lung Status: Chronic HERMAN PALENCIA MD Feb 03, 2023 14:32
[2023-02-03] MEDS: ENOXAPARIN 40 MG/0.4 ML (LOVENOX) SYR SC SCH (15:55)
[2023-02-03] MEDS: MONTELUKAST 10 MG (SINGULAIR) TAB PO SCH ×2 (20:37)
[2023-02-03] MEDS ORDERED: diphenhydrAMINE 25 MG TAB (BENADRYL) PO ONE (22:00)
[2023-02-04] MEDS: PIPERACILLIN SODIUM/TAZOBACTAM 4.5 GM in NS (IVPB) 100 ML IV SCH ×2 (02:11→09:05)
[2023-02-04 03:43] VITALS: BP 107/59
[2023-02-04 06:05] LABS: BASOPHILS % (AUTO) 0 % (0-10); EOSINOPHILS # (AUTO) 0.2 10^3/uL (0.0-0.3); EOSINOPHILS % (AUTO) 2 % (0-10); HEMATOCRIT 38 % (35-52); HEMOGLOBIN 12.7 g/dL (11.5-16.0); LYMPHOCYTES # (AUTO) 2.5 10^3/uL (1.0-4.0); LYMPHOCYTES % (AUTO) 17 % (12-44); MEAN CORPUSCULAR HEMOGLOBIN 34 pg (25-34); MEAN CORPUSCULAR HGB CONC 34 g/dL (32-36); MEAN CORPUSCULAR VOLUME 100 fL (80-99); MEAN PLATELET VOLUME 10.9 fL (9.0-12.2); MONOCYTES % (AUTO) 7 % (0-12); NEUTROPHILS # (AUTO) 11.4 10^3/uL (1.8-7.8); NEUTROPHILS % (AUTO) 74 % (42-75); PLATELET COUNT 209 10^3/uL (130-400); WHITE BLOOD COUNT 15.3 10^3/uL (4.3-11.0)
[2023-02-04] MEDS: NYSTATIN ORAL SUSP 5 ML UDC PO SCH (06:15)
[2023-02-04] MEDS: THIAMINE 100 MG (VITAMIN B-1) TAB PO SCH (06:15)
[2023-02-04 06:35] LABS: CALCIUM 8.5 MG/DL (8.5-10.1); CREATININE SERUM 0.66 MG/DL (0.60-1.30); MAGNESIUM 1.7 MG/DL (1.6-2.4); POTASSIUM 3.9 MMOL/L (3.6-5.0)
[2023-02-04 07:34] VITALS: BP 115/78
[2023-02-04] MEDS: CLOTRIMAZOLE 1% CREAM (LOTRIMIN) 30 GM TOP SCH (07:59)
[2023-02-04] MEDS: RT-ALBUTEROL/IPRATROPIUM 3 ML (DUONEB) VIAL INH SCH (08:01)
[2023-02-04] MEDS: FLUTICASONE/VILANTEROL 200 MCG 14'S (BREO) IH SCH (08:01)
[2023-02-04 08:05] VITALS: BP 115/78
[2023-02-04] MEDS: PANTOPRAZOLE 40 MG (PROTONIX) TAB PO SCH (09:04)
[2023-02-04] MEDS: LACTOBACILLUS ACIDOPHILUS (PROBIOTIC) CAPSULE PO SCH (09:04)
[2023-02-04] MEDS: NICOTINE 21 MG (NICODERM) PATCH TD SCH (09:05)
[2023-02-04] MEDS: ESTRADIOL 1 MG TAB (ESTRACE) PO SCH (09:05)
[2023-02-04] MEDS: VANCOMYCIN 1250 MG/NS 250 ML PREMIX IV SCH (09:05)
--- NOTE | 2023-02-04 10:50 | Discharge Inst-Simple/Standard ---
Discharge Inst-Standard Discharge Medications New, Converted or Re-Newed RX: Transmitted to Pharmacy Patient Instructions/Follow Up Plan of Care/Instructions/FU: Please continue to take your medications as written. Please follow up with your primary care doctor to follow up this hospital stay. Activity as Tolerated: Yes Discharge Diet: Cardiac Diet Return to The Hospital For: Chest pain, shortness of breath, fever, weakness, if you feel you are getting worse. RONALDO ADAMSON MD Feb 04, 2023 10:50
[2023-02-04] MEDS ORDERED: [UNRECOGNIZED DRUG - CODE] PO (10:54)
[2023-02-04] MEDS ORDERED: SULF1TAB38 PO (10:54)
[2023-02-04 12:04] VITALS: BP 120/75
[2023-02-04] MEDS ORDERED: ESTR2TAB4 PO (12:05)
[2023-02-04] MEDS ORDERED: IPRA3AMP31 PO (12:08)
[2023-02-04] MEDS ORDERED: NICO-685 TD (12:08)
[2023-02-04] MEDS ORDERED: NALO4SPR NS (12:08)
[2023-02-04] MEDS ORDERED: VITA0.4T18 PO (12:09)
[2023-02-04] MEDS ORDERED: CHOL-34 PO (12:10)
[2023-02-04] MEDS ORDERED: NYST1000 PO (12:44)
--- NOTE | 2023-02-04 14:34 | Discharge Summary ---
Diagnosis/Chief Complaint Date of Admission Feb 02, 2023 at 03:07 Date of Discharge Feb 04, 2023 at 13:05 Discharge Date: Feb 04, 2023 Admission Diagnosis Sepsis due to pneumonia Primary Care Brit Anderson DO Discharge Diagnosis (1) MRSA pneumonia Status: Acute (2) Sepsis due to pneumonia Status: Acute (3) Hemoptysis Status: Acute (4) Aspiration pneumonia Status: Acute (5) COPD (chronic obstructive pulmonary disease) Status: Chronic (6) Alcohol use Status: Acute (7) History of lung cancer Status: Chronic (8) S/P lobectomy of lung Status: Chronic Discharge Summary Discharge Physical Exam Allergies: Coded Allergies: No Known Drug Allergies (Unverified , 12/04/18) Vitals & I&Os Vital Signs Date Time Temp Pulse Resp B/P (MAP) Pulse Ox O2 Delivery O2 Flow Rate FiO2 02/04/23 13:03 02/04/23 12:04 36.4 85 18 98 Room Air 02/04/23 08:01 2.00 02/02/23 11:26 28 Hospital Course Labs (last 24 hrs) Laboratory Tests 02/04/23 05:22: White Blood Count 15.3H, Red Blood Count 3.77L, Hemoglobin 12.7, Hematocrit 38, Mean Corpuscular Volume 100H, Mean Corpuscular Hemoglobin 34, Mean Corpuscular Hemoglobin Concent 34, Red Cell Distribution Width 15.1H, Platelet Count 209, Mean Platelet Volume 10.9, Immature Granulocyte % (Auto) 1, Neutrophils (%) (Auto) 74, Lymphocytes (%) (Auto) 17, Monocytes (%) (Auto) 7, Eosinophils (%) (Auto) 2, Basophils (%) (Auto) 0, Neutrophils # (Auto) 11.4H, Lymphocytes # (Aut o) 2.5, Monocytes # (Auto) 1.0, Eosinophils # (Auto) 0.2, Basophils # (Auto) 0.0, Immature Granulocyte # (Auto) 0.1, Sodium Level 141, Potassium Level 3.9, Chloride Level 107, Carbon Dioxide Level 25, Anion Gap 9, Blood Urea Nitrogen 20H, Creatinine 0.66, Estimat Glomerular Filtration Rate 100, BUN/Creatinine Ratio 30, Glucose Level 133H, Calcium Level 8.5, Magnesium Level 1.7 Microbiology 02/02/23 Gram Stain - Final, Resulted 02/02/23 Sputum Culture - Preliminary, Resulted Staphylococcus aureus Culture In Progress 02/01/23 Urine Culture - Preliminary, Resulted Escherichia coli 02/01/23 Blood Culture - Preliminary, Resulted No growth Patient resulted labs reviewed. Imaging: Reviewed Imaging Films, Reviewed Imaging Report Discharge Home Medications: Active Scripts Active Nystatin 100,000 Unit/Ml Oral.susp 5 Ml PO Q6HR Gnp Probiotic 240 mg Capsule (L.acidophilus/B.bifidum&Longum) 240 Mg (3 Billion Cell) Capsule 240 Mg PO BID Bactrim Ds Tablet (Sulfamethoxazole/Trimethoprim) 1 Each Tablet 1 Each PO BID Reported Vitamin D3 (Cholecalciferol (Vitamin D3)) 25 Mcg (1000 Unit) Tablet 25 Mcg PO DAILY Super B Maxi Complex Caplet (Vitamin B Complex/Folic Acid) 0.4 Mg Tablet 0.4 Mg PO DAILY Narcan (Naloxone HCl) 4 Mg/Actuation Datto 4 Mg NS UD Iprat-Albut 0.5-3(2.5) mg/3 ml (Ipratropium/Albuterol Sulfate) 0.5 Mg-3 Mg (2.5 Mg Base)/3 Ml Ampul.neb 1 Vial PO QID PRN Nicotine Patch (Nicotine) 21 Mg/24 Hour Patch.td24 1 Patch TD DAILY Estrace Tablet (Estradiol) 2 Mg Tablet 2 Mg PO DAILY Ibuprofen 200 Mg Tablet 400 Mg PO DAILY PRN TAKES 2 (200MG) TAB Voltaren Arthritis Pain (Diclofenac Sodium) 20 Gm Gel..gram. 1 Applic TP PRN PRN Valium (Diazepam) 5 Mg Tablet 5 Mg PO BID PRN Trelegy Ellipta 200-62.5-25 (Fluticasone/Umeclidin/Vilanter) 200-62.5 Blst.w.dev 2 Puff IH DAILY Daliresp (Roflumilast) 500 Mcg Tablet 500 Mcg PO DAILY Ondansetron Odt (Ondansetron) 4 Mg Tab.rapdis 4 Mg PO Q4H PRN Dexilant (Dexlansoprazole) 60 Mg Cap.dr.bp 60 Mg PO DAILY Nac (Acetylcysteine) 600 Mg Capsule 600 Mg PO DAILY HYDROcodone/APAP 10/325 TABLET (Acetaminophen/Hydrocodone Bitart) 1 Each Tablet 1 Each PO Q6H PRN Fluticasone Propionate 16 Gm Datto.susp 2 Datto NS DAILY Ventolin Hfa (Albuterol Sulfate) 18 Gm Hfa.aer.ad 2 Puff INH Q4H PRN Fexofenadine HCl 180 Mg Tablet 180 Mg PO DAILY PRN Cartia Xt (Diltiazem HCl) 240 Mg Cap.er.24h 240 Mg PO DAILY Montelukast Sodium 10 Mg Tablet 10 Mg PO HS Pravastatin Sodium 40 Mg Tablet 40 Mg PO HS Instructions to patient/family Please see electronic discharge instructions given to patient. Problem Qualifiers (1) MRSA pneumonia: Laterality: left Lung location: lower lobe of lung Qualified Codes: J15.212 - Pneumonia due to methicillin resistant Staphylococcus aureus RONALDO ADAMSON MD Feb 04, 2023 14:34
[2023-02-04] MEDS ORDERED: RT-ALBUTEROL/IPRATROPIUM 3 ML (DUONEB) VIAL INH SCH (21:00)
== END 2023-02-04 13:05 | disposition home or self-care (01) | DRG 871 ==
LOC: EDUNIT# 21:06 → ER 21:08 → ICU 02-02 03:07 → 4TH 02-02 11:16
PROVIDERS: ADMIT Internal Medicine; ATTEND Family Medicine
DX: A41.02 Sepsis due to Methicillin resistant Staphylococcus aureus (principal); J15.212 Pneumonia due to Methicillin resistant Staphylococcus aureus; J69.0 Pneumonitis due to inhalation of food and vomit; J96.21 Acute and chronic respiratory failure with hypoxia; R04.2 Hemoptysis; R65.20 Severe sepsis without septic shock; J43.9 Emphysema, unspecified; R73.9 Hyperglycemia, unspecified; F10.10 Alcohol abuse, uncomplicated; Y90.1 Blood alcohol level of 20-39 mg/100 ml; I48.91 Unspecified atrial fibrillation; Z99.81 Dependence on supplemental oxygen; G47.30 Sleep apnea, unspecified; E78.00 Pure hypercholesterolemia, unspecified; K21.9 Gastro-esophageal reflux disease without esophagitis; M19.90 Unspecified osteoarthritis, unspecified site; H54.3 Unqualified visual loss, both eyes; F41.9 Anxiety disorder, unspecified; F32.A Depression, unspecified; Z85.118 Personal history of other malignant neoplasm of bronchus and lung; Z90.2 Acquired absence of lung [part of]; Z79.82 Long term (current) use of aspirin; Z79.899 Other long term (current) drug therapy; Z20.822 Contact with and (suspected) exposure to COVID-19
CPT/HCPCS: 36415; 51702; 71045; 71275; 80048; 80053; 80306; 80320; 81000; 82150; 82550; 82553; 82947; 83605; 83690; 83735; 83874; 83880; 84100; 84484; 85007; 85025; 85027; 85610; 85652; 85730; 86141; 87040; 87070; 87077; 87081; 87088; 87184; 87186; 87205; 87449; 87636; 93005; 93041; 94640; 94760

== ENCOUNTER → 2023-02-13 | Outpatient (CLI) | payer MEDICARE, MEDICAID ==
[~2023-02-13] MED LIST changes: +CHOL-34 PO; +ESTR2TAB4 PO; +IPRA3AMP31 PO; +NALO4SPR NS; +NICO-685 TD; +VITA0.4T18 PO; +[UNRECOGNIZED DRUG - CODE] PO
--- NOTE | 2023-02-13 15:26 | Diagnostic Imaging Report ---
EXAMINATION: Chest, 2 views. HISTORY: Pneumonia. COMPARISON: 02/02/2023. FINDINGS: There is unchanged architectural distortion in the right hilum. A loop recorder is present. No pleural effusion or pneumothorax. Left base pneumonia has improved. IMPRESSION: Improved left base pneumonia with minimal airspace opacities remaining. Dictated by: Dictated on workstation # [id number]
== END ==
LOC: RAD 14:59
PROVIDERS: ATTEND Internal Medicine Critical Care Medicine
DX: J18.9 Pneumonia, unspecified organism (principal); J44.9 Chronic obstructive pulmonary disease, unspecified
CPT/HCPCS: 71046

== ENCOUNTER → 2023-05-01 | Outpatient (CLI) | payer MEDICARE, MEDICAID ==
--- NOTE | 2023-05-01 12:10 | Diagnostic Imaging Report ---
EXAM: CERVICAL SPINE 4 OR 5 VIEWS INDICATION: Neck pain. Cervical spine fusion. COMPARISON: 12/28/2022. FINDINGS: Mild reversal of the normal cervical lordosis. Vertebral body heights preserved. No fractures. Degenerative endplate changes and large osteophytes formation at C4-C6. Anterior fusion with interbody bone grafting at C6-C7. Normal prevertebral soft tissues. No subluxation with flexion or extension. IMPRESSION: 1. Moderate to severe spondylotic changes including large anterior osteophytes at C4-C6. 2. Mature anterior fusion with interbody bone grafting at C6-C7. Dictated by: Dictated on workstation # [id number]
--- NOTE | 2023-05-01 16:09 | Diagnostic Imaging Report ---
INDICATION: Back pain. EXAMINATION: AP and lateral views of the lumbar spine were obtained including flexion and extension views. FINDINGS: The lumbar vertebrae are normal in height and alignment. There is no fracture or subluxation. There is disc space narrowing, most prominent at L4-L5 and L5-S1. There is diffuse facet degenerative change from L3 through S1. Alignment does not change between flexion and extension. IMPRESSION: Degenerative changes in the lower lumbar spine with no acute abnormality. Dictated by: Dictated on workstation # [id number]
== END ==
LOC: RAD 09:46
PROVIDERS: ATTEND Neurological Surgery
DX: M47.812 Spondylosis without myelopathy or radiculopathy, cervical region (principal); M47.816 Spondylosis without myelopathy or radiculopathy, lumbar region; Z78.1 Physical restraint status; Z98.1 Arthrodesis status
CPT/HCPCS: 72050; 72110

== ENCOUNTER → 2023-05-16 | Outpatient (CLI) | payer MEDICARE, MEDICAID ==
[~2023-05-16] MED LIST changes: +TEZEPELUMAB-EKKO 210 MG/1.91 ML SYRINGE SQ SCH
[2023-05-16 10:30] VITALS: BP_SYST 0; BP_SYST 113; BP_DIAS 0; BP_DIAS 73
== END ==
LOC: SDC 10:03
PROVIDERS: ATTEND Internal Medicine Critical Care Medicine
DX: J82.83 Eosinophilic asthma (principal)
CPT/HCPCS: 96372

== ENCOUNTER 2023-07-03 09:56 | Outpatient (CLI) | payer MEDICARE ==
[~2023-07-03 09:56] MED LIST changes: -ESTR0.5T PO; +ESTR0.5T2 PO; -TEZEPELUMAB-EKKO 210 MG/1.91 ML SYRINGE SQ SCH
[2023-07-03 10:29] VITALS: BP 103/68
[2023-07-03] MEDS ORDERED: TEZEPELUMAB-EKKO 210 MG/1.91 ML SYRINGE SQ SCH (10:30)
== END 2023-07-03 10:45 | disposition home or self-care (01) ==
LOC: SDC 09:56
PROVIDERS: ATTEND Internal Medicine Critical Care Medicine
DX: J82.83 Eosinophilic asthma (principal)
CPT/HCPCS: 96372

== ENCOUNTER 2023-07-12 14:04 | Emergency (ER) | payer MEDICARE, MEDICAID ==
[~2023-07-12] VITALS: Ht 165 cm; Wt 81.0 kg
--- NOTE | 2023-07-12 14:25 | ED Respiratory ---
General Chief Complaint: Respiratory Problems Stated Complaint: SOB/COUGH Nursing Triage Note: PT STATES SOB FOR A COUPLE MONTHS, CURRENT UPPER CHEST TIGHTNESS, BLOOD IN URINE AND LOW BACK PAIN, ON O2 AT NIGHT AND BREATHING TXS NOT WORKING WELL ANYMORE. SORE THROAT Source: patient Exam Limitations: no limitations (CHRYSTAL DIAZ) History of Present Illness Date Seen by Provider: Jul 12, 2023 Time Seen by Provider: 14:22 Initial Comments Patient is a 62-year-old female with a history of A-fib, COPD who presents to ED for chest tightness shortness of breath cough for the past 2 to 3 months. History of MRSA pneumonia was admitted to the hospital with sepsis. She states she has had increased work of breathing and shortness of breath over the past few months. 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 Started taking prednisone 3 days ago. Not currently on antibiotics. She does wear 2 L oxygen at night. She denies of any fever vomiting or diarrhea. She does report some blood in her urine. She was scheduled for CT scan today at [place] that their computer symptoms are down and she is wanting a CT scan. She has no specific urinary symptoms, decreased urine output, pain with urination, fever or chills vomiting or diarrhea. Denies history of coronary artery disease. Everyday smoker. Scheduled for cardiac cath next week. (CHRYSTAL DIAZ) Allergies and Home Medications Allergies Coded Allergies: No Known Drug Allergies (Unverified , 12/04/18) Patient Home Medication List Home Medication List Reviewed: Yes (CHRYSTAL DIAZ) Acetylcysteine (Nac) 600 Mg Capsule, 600 MG PO DAILY, (Reported) Entered as Reported by: VICKI ELLIS on 02/17/18 0957 Albuterol Sulfate (Ventolin Hfa) 18 Gm Hfa.aer.ad, 2 PUFF INH Q4H PRN for SHORTNESS OF BREATH, (Reported) Entered as Reported by: SHELLEY IBANEZ on 07/25/17 0936 Cholecalciferol (Vitamin D3) (Vitamin D3) 25 Mcg (1000 Unit) Tablet, 25 MCG PO DAILY, (Reported) Entered as Reported by: KAMRON BEAVER on 02/04/23 1210 Dexlansoprazole (Dexilant) 60 Mg Faustino., 60 MG PO DAILY, (Reported) Entered as Reported by: VICKI ELLIS on 02/17/18 0957 Diazepam (Valium) 5 Mg Tablet, 5 MG PO BID PRN for ANXIETY, (Reported) Entered as Reported by: DELVIN CANELA on 09/17/21 1055 Diclofenac Sodium (Voltaren Arthritis Pain) 20 Gm Gel..gram., 1 APPLIC TP PRN PRN for PAIN-MILD (1-4), (Reported) Entered as Reported by: DELVIN CANELA on 09/17/21 1055 Diltiazem HCl (Cartia Xt) 240 Mg Cap.er.24h, 240 MG PO DAILY, (Reported) Entered as Reported by: JOSÉ ORTIZ on 07/09/17 1352 Estradiol (Estrace Tablet) 2 Mg Tablet, 2 MG PO DAILY, (Reported) Entered as Reported by: KAMRON BEAVER on 02/04/23 1205 Fexofenadine HCl (Fexofenadine HCl) 180 Mg Tablet, 180 MG PO DAILY PRN for ALLERGIES, (Reported) Entered as Reported by: SHELLEY IBANEZ on 07/25/17 0936 Fluticasone Propionate (Fluticasone Propionate) 16 Gm [place].susp, 2 SPRAY NS DAILY, (Reported) Entered as Reported by: SHELLEY IBANEZ on 07/25/17 0936 Fluticasone/Umeclidin/Vilanter (Trelegy Ellipta 200-62.5-25) 200-62.5 Blst.w.dev, 2 PUFF IH DAILY, (Reported) Entered as Reported by: DELVIN CANELA on 09/17/21 1055 Hydrocodone Bit/Acetaminophen (HYDROcodone/APAP 10/325 TABLET) 1 Each Tablet, 1 EACH PO Q6H PRN for PAIN-MILD TO MODERATE, (Reported) Entered as Reported by: VICKI ELLIS on 02/17/18 0957 Ibuprofen (Ibuprofen) 200 Mg Tablet, 400 MG PO DAILY PRN for PAIN-MILD (1-4), (Reported) Entered as Reported by: KAMRON BEAVER on 09/18/21 1010 Ipratropium/Albuterol Sulfate (Iprat-Albut 0.5-3(2.5) mg/3 ml) 0.5 Mg-3 Mg (2.5 Mg Base)/3 Ml Ampul.neb, 1 VIAL PO QID PRN for SHORTNESS OF BREATH, (Reported) Entered as Reported by: KAMRON BEAVER on 02/04/23 1208 L.acidophilus/B.bifidum&Longum (Gnp Probiotic 240 mg Capsule) 240 Mg (3 Billion Cell) Capsule, 240 MG PO BID Prescribed by: RONALDO ADAMSON on 02/04/23 1054 Montelukast Sodium (Montelukast Sodium) 10 Mg Tablet, 10 MG PO HS, (Reported) Entered as Reported by: VICKI ELLIS on 11/29/16 1609 Naloxone HCl (Narcan) 4 Mg/Actuation [place], 4 MG NS UD, (Reported) Entered as Reported by: KAMRON BEAVER on 02/04/23 1208 Nicotine (Nicotine Patch) 21 Mg/24 Hour Patch.td24, 1 PATCH TD DAILY, (Reported) Entered as Reported by: KAMRON BEAVER on 02/04/23 1208 Nystatin (Nystatin) 100,000 Unit/Ml Oral.susp, 5 ML PO Q6HR Prescribed by: RONALDO ADAMSON on 02/04/23 1244 Ondansetron (Ondansetron Odt) 4 Mg Tab.rapdis, 4 MG PO Q4H PRN for NAUSEA/VOMITING, (Reported) Entered as Reported by: BURT BULL on 12/04/18 1410 Pravastatin Sodium (Pravastatin Sodium) 40 Mg Tablet, 40 MG PO HS, (Reported) Entered as Reported by: VICKI ELLIS on 11/29/16 1609 Roflumilast (Daliresp) 500 Mcg Tablet, 500 MCG PO DAILY, (Reported) Entered as Reported by: BURT BULL on 12/04/18 1410 Sulfamethoxazole/Trimethoprim (Bactrim Ds Tablet) 1 Each Tablet, 1 EACH PO BID Prescribed by: RONALDO ADAMSON on 02/04/23 1054 Sulfamethoxazole/Trimethoprim (Bactrim Ds Tablet) 800 Mg-160 Mg Tablet, 1 EACH PO BID Prescribed by: MARYA BURROWS on 07/12/23 1545 Vitamin B Complex/Folic Acid (Super B Maxi Complex Caplet) 0.4 Mg Tablet, 0.4 MG PO DAILY, (Reported) Entered as Reported by: KAMRON BEAVER on 02/04/23 1209 Discontinued Medications Sulfamethoxazole/Trimethoprim (Bactrim Ds Tablet) 800 Mg-160 Mg Tablet, 1 EACH PO BID Prescribed by: MARYA BURROWS on 07/12/23 1543 Review of Systems Review of Systems Constitutional: No diaphoresis, No fever, No malaise, No weakness EENTM: No ear pain, No blurred vision, No double vision Respiratory: cough, dyspnea on exertion, short of breath Cardiovascular: chest pain; No edema, No palpitations Gastrointestinal: No abdominal pain, No dysphagia, No vomiting Genitourinary: No decreased output, No discharge Musculoskeletal: No back pain, No joint pain Skin: No change in color, No change in hair/nails (CHRYSTAL DIAZ) All Other Systems Reviewed Negative Unless Noted: Yes (CHRYSTAL DIAZ) Past Dseorca-Ictjvn-Zfgjzp Hx Patient Social History Tobacco Use?: Yes Tobacco type used: Cigarettes Smoking Status: Current Everyday Smoker Substance use?: No Alcohol Use?: Yes Alcohol type: Hard Liquor Alcohol Frequency: Couple times a week Pt feels they are or have been: No (CHRYSTAL DIAZ) Immunizations Up To Date Tetanus Booster (TDap): Unknown PED Vaccines UTD: No First/Initial COVID19 Vaccinat: 12/2020 Second COVID19 Vaccination Enoc: 01/2021 Third COVID19 Vaccination Date: 12/2020 (CHRYSTAL DIAZ) Seasonal Allergies Seasonal Allergies: Yes (CHRYSTAL DIAZ) Past Medical History Surgery/Hospitalization HX: Spinal fusion 2004, Lobectomy 2008, Breast implants 1996, HYST/ BLADDER SLING, COPD, LUNG CA, GERD Surgeries: Yes (BUNIONECTOMY, NECK FUSION, BREAST IMPLANTS) Bladder Surgery, Breast, Cardiac, Hysterectomy, Lobectomy, Orthopedic Respiratory: Yes ( HX OF LUNG CA, O2 2L NC) Sleep Apnea, COPD Currently Using CPAP: No Currently Using BIPAP: No Cardiac: Yes (TACHYCARDIA) Atrial Fibrillation, High Cholesterol Neurological: No 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 Disorders: Yes CONVERSION MAN History: Menopausal Sexually Transmitted Disease: No HIV/AIDS: No Genitourinary: No Gastrointestinal: Yes Gastroesophageal Reflux Musculoskeletal: Yes (joint pain) Arthritis, Chronic Back Pain Endocrine: No HEENT: Yes (READING GLASSES) Loss of Vision: Bilateral Hearing Impairment: Denies Cancer: Yes Lung Did You Recieve Any Treatments: Yes What Type of Treatment Did You: Surgical Intervention Psychosocial: Yes Anxiety, Depression Integumentary: No Blood Disorders: No Adverse Reaction/Blood Tranf: No (N/A) (CHRYSTAL DIAZ) Family Medical History FH: lung cancer 19 FATHER 19 MOTHER No Pertinent Family Hx (CHRYSTAL DIAZ) Physical Exam Vital Signs - First Documented (ARGENTINA SUMMERS MD) Capillary Refill : Less Than 3 Seconds (CHRYSTAL DIAZ) Height: 5'5.00" Weight: 179lbs. 2.0oz. 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, no motor/sensory deficits, alert, normal mood/affect, oriented x 3 Skin: normal color, warm/dry (CHRYSTAL DIAZ) Focused Exam Lactate Level 07/12/23 14:50: Lactic Acid Level 1.06 (ARGENTINA SUMMERS MD) Lactic Acid Level Laboratory Tests Test 07/12/23 14:50 Lactic Acid Level 1.06 MMOL/L (0.50-2.00) (ARGENTINA SUMMERS MD) Progress/Results/Core Measures Suspected Sepsis SIRS Temperature: Pulse: 110 Respiratory Rate: 22 Laboratory Tests 07/12/23 14:14: White Blood Count 15.2H Blood Pressure 129 /85 Mean: 100 07/12/23 14:50: Lactic Acid Level 1.06 Laboratory Tests 07/12/23 14:14: Creatinine 0.73, INR Comment 0.9, Platelet Count 285, Total Bilirubin 0.3 (CHRYSTAL DIAZ) Results/Orders Lab Results Laboratory Tests Test 07/12/23 14:13 07/12/23 14:14 07/12/23 14:50 Range/Units Influenza Type A (RT-PCR) Not Detected Not Detecte Influenza Type B (RT-PCR) Not Detected Not Detecte SARS-CoV-2 RNA (RT-PCR) Not Detected Not Detecte White Blood Count 15.2 H 4.3-11.0 10^3/uL Red Blood Count 4.33 3.80-5.11 10^6/uL Hemoglobin 14.2 11.5-16.0 g/dL Hematocrit 42 35-52 % Mean Corpuscular Volume 98 80-99 fL Mean Corpuscular Hemoglobin 33 25-34 pg Mean Corpuscular Hemoglobin Concent 34 32-36 g/dL Red Cell Distribution Width 15.8 H 10.0-14.5 % Platelet Count 285 130-400 10^3/uL Mean Platelet Volume 10.3 9.0-12.2 fL Immature Granulocyte % (Auto) 1 % Neutrophils (%) (Auto) 72 42-75 % Lymphocytes (%) (Auto) 19 12-44 % Monocytes (%) (Auto) 7 0-12 % Eosinophils (%) (Auto) 2 0-10 % Basophils (%) (Auto) 1 0-10 % Neutrophils # (Auto) 10.8 H 1.8-7.8 10^3/uL Lymphocytes # (Auto) 2.8 1.0-4.0 10^3/uL Monocytes # (Auto) 1.1 H 0.0-1.0 10^3/uL Eosinophils # (Auto) 0.3 0.0-0.3 10^3/uL Basophils # (Auto) 0.1 0.0-0.1 10^3/uL Immature Granulocyte # (Auto) 0.1 0.0-0.1 10^3/uL Neutrophils % (Manual) 71 % Lymphocytes % (Manual) 22 % Monocytes % (Manual) 6 % Eosinophils % (Manual) 1 % Stomatocytes SLIGHT Prothrombin Time 12.3 12.2-14.7 SEC INR Comment 0.9 0.8-1.4 Activated Partial Thromboplast Time 29 24-35 SEC D-Dimer 0.33 0.00-0.49 UG/ML Sodium Level 140 135-145 MMOL/L Potassium Level 4.2 3.6-5.0 MMOL/L Chloride Level 105 98-107 MMOL/L Carbon Dioxide Level 27 21-32 MMOL/L Anion Gap 8 5-14 MMOL/L Blood Urea Nitrogen 18 7-18 MG/DL Creatinine 0.73 0.60-1.30 MG/DL Estimat Glomerular Filtration Rate 94 BUN/Creatinine Ratio 25 Glucose Level 108 H 70-105 MG/DL Calcium Level 9.0 8.5-10.1 MG/DL Corrected Calcium 8.9 8.5-10.1 MG/DL Magnesium Level 2.0 1.6-2.4 MG/DL Total Bilirubin 0.3 0.1-1.0 MG/DL Aspartate Amino Transf (AST/SGOT) 15 5-34 U/L Alanine Aminotransferase (ALT/SGPT) 18 0-55 U/L Alkaline Phosphatase 94 40-136 U/L Myoglobin 18.2 10.0-92.0 NG/ML Troponin I < 0.028 <0.028 NG/ML B-Type Natriuretic Peptide 58.5 <100.0 PG/ML Total Protein 7.2 6.4-8.2 GM/DL Albumin 4.1 3.2-4.5 GM/DL Lipase 21 8-78 U/L Urine Color YELLOW Urine Clarity CLEAR Urine pH 7.0 5-9 Urine Specific [place] 1.015 L 1.016-1.022 Urine Protein NEGATIVE NEGATIVE Urine Glucose (UA) NEGATIVE NEGATIVE Urine Ketones NEGATIVE NEGATIVE Urine Nitrite NEGATIVE NEGATIVE Urine Bilirubin NEGATIVE NEGATIVE Urine Urobilinogen 0.2 < = 1.0 MG/DL Urine Leukocyte Esterase NEGATIVE NEGATIVE Urine RBC (Auto) TRACE H NEGATIVE Urine RBC RARE /HPF Urine WBC NONE /HPF Urine Squamous Epithelial Cells 2-5 /HPF Urine Crystals NONE /LPF Urine Bacteria FEW H /HPF Urine Casts NONE /LPF Urine Mucus SMALL H /LPF Urine Culture Indicated YES Lactic Acid Level 1.06 0.50-2.00 MMOL/L (ARGENTINA SUMMERS MD) My Orders Orders - ARGENTINA SUMMERS MD Ekg Tracing (07/12/23 14:08) (ARGENTINA SUMMERS MD) Medications Given in ED Current Medications Medications Dose Ordered Sig/Caitlin Route Start Time Stop Time Status Last Admin Dose Admin Albuterol/ Ipratropium 3 ml ONCE ONCE INH 07/12/23 14:30 07/12/23 14:31 DC 07/12/23 15:09 3 ML Methylprednisolone Sodium Succinate 125 mg ONCE ONCE IVP 07/12/23 14:30 07/12/23 14:31 DC 07/12/23 14:51 125 MG (ARGENTINA SUMMERS MD) Vital Signs/I&O 07/12/23 07/12/23 07/12/23 07/12/23 14:08 14:08 15:10 15:52 Temp 37.1 Pulse 110 84 Resp 22 22 B/P (MAP) 129/85 (100) 116/84 Pulse Ox 95 97 97 O2 Delivery Room Air Nasal Cannula Room Air Room Air (ARGENTINA SUMMERS MD) Vital Signs/I&O Capillary Refill : Less Than 3 Seconds (CHRYSTAL DIAZ) Blood Pressure Mean: 100 ECG Comment Sinus rhythm, 98 bpm, QRS duration 86 MS, QTc 398 ms. (CHRYSTAL DIAZ) Departure Communication (PCP) Reviewed previous ER visits, H&P, lab testing. Differential diagnosis COPD, pneumonia, viral syndrome, UTI, ACS, PE. History of COPD. Does follow pulmonology in [place]. Worsening shortness of breath and chest tightness over the past 2 to 3 months. Sometimes appear to be with exertion or even when she lies down. Denies of any lower leg swelling. Not currently on anticoagulant. No recent travels or surgeries. Cardiac work-up was initiated as well as septic work-up as she was tachycardic. History of pneumonia this summer. Blood cultures pending. EKG showed normal sinus rhythm without evidence of ST elevation depression or arrhythmia. No specific chest pain at this time. She was slightly tachycardic. Did add a D-dimer. CBC, CMP was grossly unremarkable besides a white blood count of 15. Normal troponin, BNP and D-dimer. Chest x- ray was negative for acute abnormality. COVID influenza was ordered which was negative. Suspect symptoms to be more related to COPD. Her oxygen 97% on room air. She had diminished lung sounds and wheezing. She did receive DuoNeb breathing treatment and Solu-Medrol with improvement. She has been taking prednisone for the past 3 to 4 days which may be associated of the elevated white blood count. Her urinalysis did show trace hematuria and bacteria. History of UTIs. After reviewing previous microbiology report history of E. coli resistant strain susceptible to Bactrim. Will discharge with Bactrim. Her heart rate did improve. She does not appear in respiratory distress. She has no flank pain or abdominal tenderness on palpation. She was scheduled for an outpatient CT scan of the abdomen and pelvis which she will follow-up with [facility]. No evidence of mass on chest x-ray. Continue with your breathing treatments. Taper dose off your prednisone. She does have enough at home. Recommend recheck with urinalysis in 5 days. Culture pending. Continue with your breathing treatments. If any worsening symptoms such as chest pain or shortness of breath return back to ED. She is scheduled for cardiac cath next week for this ongoing shortness of breath and chest tightness with Dr. Ray. (CHRYSTAL DIAZ) Impression Primary Impression: COPD exacerbation Additional Impression: UTI (urinary tract infection) Disposition: 01 HOME, SELF-CARE Condition: Stable Departure-Patient Inst. Decision time for Depature: 15:40 (CHRYSTAL DIAZ) Referrals: SHELLEY ROSENBERG DO (PCP/Family) Primary Care Physician Patient Instructions: Chronic obstructive pulmonary disease (COPD) Add. Discharge Instructions: Take antibiotics as prescribed. Continue with your breathing treatment. Follow-up with cardiology next week. If any worsening symptoms such as chest pain or shortness of breath return back to ED. continue with your prednisone. All discharge instructions reviewed with patient and/or family. Voiced understan jewel. Scripts Sulfamethoxazole/Trimethoprim (Bactrim Ds Tablet) 800 Mg-160 Mg Tablet 1 EACH PO BID for 7 Days, #14 TAB Prov: CHRYSTAL DIAZ 07/12/23 ATTENDING PHYSICIAN NOTE: I was physically present as attending physician in the emergency department during the care of this patient, but I was not directly involved in the decision making or delivery of care for this patient. (ARGENTINA SUMMERS MD) CHRYSTAL DIAZ Jul 12, 2023 14:25 ARGENTINA SUMMERS MD Jul 12, 2023 22:09
[2023-07-12 14:27] LABS: BASOPHILS # (AUTO) 0.1 10^3/uL (0.0-0.1); BASOPHILS % (AUTO) 1 % (0-10); EOSINOPHILS # (AUTO) 0.3 10^3/uL (0.0-0.3); EOSINOPHILS % (AUTO) 2 % (0-10); HEMATOCRIT 42 % (35-52); HEMOGLOBIN 14.2 g/dL (11.5-16.0); LYMPHOCYTES # (AUTO) 2.8 10^3/uL (1.0-4.0); LYMPHOCYTES % (AUTO) 19 % (12-44); MEAN CORPUSCULAR HEMOGLOBIN 33 pg (25-34); MEAN CORPUSCULAR HGB CONC 34 g/dL (32-36); MEAN CORPUSCULAR VOLUME 98 fL (80-99); MEAN PLATELET VOLUME 10.3 fL (9.0-12.2); MONOCYTES # (AUTO) 1.1 10^3/uL (0.0-1.0); MONOCYTES % (AUTO) 7 % (0-12); NEUTROPHILS # (AUTO) 10.8 10^3/uL (1.8-7.8); NEUTROPHILS % (AUTO) 72 % (42-75); PLATELET COUNT 285 10^3/uL (130-400); WHITE BLOOD COUNT 15.2 10^3/uL (4.3-11.0)
[2023-07-12] MEDS ORDERED: RT-Ipratropium/Albuterol NEB 3 ML VIAL INH ONE (14:30)
[2023-07-12] MEDS ORDERED: methylPREDNISolone INJ 125 MG VIAL IVP ONE (14:30)
[2023-07-12 14:32] LABS: ALBUMIN 4.1 GM/DL (3.2-4.5); CHLORIDE 105 MMOL/L (98-107); INR 0.9 (0.8-1.4); POTASSIUM 4.2 MMOL/L (3.6-5.0); PROTHROMBIN TIME PATIENT 12.3 SEC (12.2-14.7); SODIUM 140 MMOL/L (135-145)
[2023-07-12 14:34] LABS: GLUCOSE 108 MG/DL (70-105); TOTAL PROTEIN 7.2 GM/DL (6.4-8.2)
[2023-07-12 14:35] LABS: CARBON DIOXIDE 27 MMOL/L (21-32)
[2023-07-12 14:36] LABS: BILIRUBIN,TOTAL 0.3 MG/DL (0.1-1.0); FIBRIN DEGRADATION PRODUCTS 0.33 UG/ML (0.00-0.49)
[2023-07-12 14:38] LABS: ALKALINE PHOSPHATASE 94 U/L (40-136); CREATININE SERUM 0.73 MG/DL (0.60-1.30); GFR ESTIMATED 94
[2023-07-12 14:39] LABS: BUN/CREATININE RATIO 25
[2023-07-12 14:41] LABS: ALANINE AMINOTRANSFERASE 18 U/L (0-55)
[2023-07-12 14:42] LABS: LIPASE 21 U/L (8-78)
--- NOTE | 2023-07-12 14:42 | Diagnostic Imaging Report ---
Indication: Shortness of breath and chest tightness. Time of Exam: 2:24 PM Correlation is made with prior chest 02/02/2023. Heart size stable. Cardiac loop recorder overlies the left chest. Bullous emphysematous changes in the right upper lung field with surgical clips right paratracheal and right hilar location are again noted. No infiltrates are seen. There is no effusion. IMPRESSION: Stable chronic and postsurgical changes. No acute feature is detected. Dictated by: Dictated on workstation # [id number]
[2023-07-12 14:58] LABS: EOSINOPHILS % (MANUAL) 1 %; LYMPHOCYTES % (MANUAL) 22 %; MONOCYTES % (MANUAL) 6 %; NEUTROPHILS % (MANUAL) 71 %; STOMATOCYTES SLIGHT
[2023-07-12 15:09] LABS: CLARITY,URINE CLEAR; COLOR,URINE YELLOW; PROTEIN,URINE NEGATIVE (NEGATIVE)
[2023-07-12 15:10] LABS: BACTERIA,URINE FEW /HPF; BILIRUBIN,URINE NEGATIVE (NEGATIVE); GLUCOSE, URINE (UA) NEGATIVE (NEGATIVE); KETONES,URINE NEGATIVE (NEGATIVE); LEUKOCYTE ESTERASE ,URINE NEGATIVE (NEGATIVE); NITRITE,URINE NEGATIVE (NEGATIVE); RBC,URINE RARE /HPF
[2023-07-12] MEDS ORDERED: SULF-221 PO ×2 (15:43→15:45)
[2023-07-12 15:52] VITALS: BP 116/84
== END 2023-07-12 15:52 | disposition home or self-care (01) ==
LOC: EDUNIT# 14:04 → ER 14:07
DX: J44.1 Chronic obstructive pulmonary disease with (acute) exacerbation (principal); N39.0 Urinary tract infection, site not specified; F17.210 Nicotine dependence, cigarettes, uncomplicated; Z99.81 Dependence on supplemental oxygen
CPT/HCPCS: 36415; 71045; 80053; 81000; 83605; 83690; 83735; 83874; 83880; 84484; 85007; 85027; 85379; 85610; 85730; 87040; 87088; 87636; 93005; 93041; 94640; 96374

== ENCOUNTER 2023-07-23 07:08 | Day surgery (SDC) | payer MEDICARE, MEDICAID ==
[~2023-07-23] VITALS: Ht 167.6 cm; Wt 81.6 kg
[2023-07-23] VITALS (11 sets, daily range): BP systolic 93–110; BP diastolic 57–86
[~2023-07-23 07:08] MED LIST changes: +SULF-221 PO
[2023-07-23] MEDS ORDERED: LIDOCAINE 1% INJ 20 ML VIAL ONE ×3 (07:13→09:06)
[2023-07-23] MEDS ORDERED: HEParin (CATH LAB) 2,000 ML IV ONE (07:13)
[2023-07-23] MEDS ORDERED: NS IV 1000 ML 1,000 ML ONE (07:13)
[2023-07-23] MEDS ORDERED: NS IV 1000 ML 1,000 ML IV SCH ×2 (07:15→10:15)
[2023-07-23 07:32] LABS: HEMATOCRIT 43 % (35-52); MEAN CORPUSCULAR HEMOGLOBIN 33 pg (25-34); MEAN CORPUSCULAR HGB CONC 33 g/dL (32-36); MEAN CORPUSCULAR VOLUME 100 fL (80-99); MEAN PLATELET VOLUME 10.2 fL (9.0-12.2); PLATELET COUNT 256 10^3/uL (130-400); WHITE BLOOD COUNT 13.6 10^3/uL (4.3-11.0)
[2023-07-23 07:44] LABS: INR 0.8 (0.8-1.4); PROTHROMBIN TIME PATIENT 11.8 SEC (12.2-14.7)
[2023-07-23 07:53] LABS: BILIRUBIN,TOTAL 0.5 MG/DL (0.1-1.0); CREATININE SERUM 0.75 MG/DL (0.60-1.30); POTASSIUM 4.2 MMOL/L (3.6-5.0); TOTAL PROTEIN 6.9 GM/DL (6.4-8.2)
[2023-07-23] MEDS ORDERED: ESTR1TAB27 PO (08:16)
[2023-07-23] MEDS ORDERED: DEXL60CA6 PO (08:16)
[2023-07-23] MEDS ORDERED: NYST1000 PO (08:16)
[2023-07-23] MEDS ORDERED: ZINC50TA51 PO (08:16)
[2023-07-23] MEDS ORDERED: ASCO250T55 PO (08:16)
[2023-07-23] MEDS ORDERED: TEZE210S SQ (08:16)
[2023-07-23] MEDS ORDERED: CHLO1TAB74 PO (08:16)
[2023-07-23] MEDS ORDERED: SUCR1ORA15 PO (08:16)
[2023-07-23] MEDS ORDERED: BUDE10.7 INH (08:16)
[2023-07-23] MEDS ORDERED: fentaNYL INJECTION 100 MCG/2 ML VIAL ONE (08:32)
[2023-07-23] MEDS ORDERED: MIDAZOLAM INJ 5 MG/5 ML VIAL ONE (08:32)
[2023-07-23] MEDS ORDERED: HEParin 1000 UNIT/ML (10ML VIAL) FOR BOLUS ONE (08:32)
--- NOTE | 2023-07-23 09:51 | Cardiac Procedure Note-CS/ASA ---
Pre-Procedure Note Pre-Op Procedure Note Date of Available H&P: Jul 01, 2023 Date H&P Reviewed: Jul 23, 2023 Time H&P Reviewed: 08:45 History & Physical: H&P Reviewed Moderate Sedation PreProcedure ASA Score 3 Airway Lungs Heart ASA score ASA 1: a normal healthy patient ASA 2: a patient with a mild systemic disease (mid diabetes, controlled hypertension, obesity ASA 3: a patient with a severe systemic disease that limits activity (angina, COPD, prior Myocardial infarction) ASA 4: a patient with an incapacitating disease that is a constant threat to life (CHF, renal failure) ASA 5: a moribund patient not expected to survive 24 hrs. (ruptured aneurysm) ASA 6: a declared brain- patient whose organs are being harvested. For emergent operations, add the letter E after the classification Mallampati Classification Grade 2 Sedation Plan Analgesia, Amnesia, Plan communicated to team members The patient is an appropriate candidate to undergo the planned procedure, sedation, and anesthesia. The patient immediately re-assessed prior to indication. GIBRAN LADD MD FACP FAC CCDS Jul 23, 2023 09:51
--- NOTE | 2023-07-23 10:01 | Cardiac Cath Report ---
CARDIAC CATHETERIZATION DATE OF PROCEDURE: 07-23-23 INDICATION: Shortness of breath HISTORY: The patient is a 62 year old female with a longstanding h/o of smoking and symptoms of slowly progressive shortness of breath and chest discomfort. PROCEDURES PERFORMED: 1. Complete heart cath PROCEDURE DESCRIPTION: After informed consent and in the fasting state, left heart catheterization was performed through the R femoral artery utilizing a 5 Bulgarian system and R femoral vein utilizing a 7 Bulgarian system by percutaneous approach. 7F Baldwin-Natalie for RHC. 5F pigtail for LHC and LV angio. 5F JL4 for L cors. 5F JR4 for R cor. HEMODYNAMICS: PA pressure: 40/21 with mean 29 PCWP: 9 mean RV: 41/11 RA: 8 mean CO/CI by thermodilution: 5.8/3.03 No significant oxygen saturation differences between various right heart chambers LV: 115/9 LVEDP: 8 At time of pull back LV was 104 systolic and Ao 98 systolic (no significant pressure gradient on pull back across the aortic valve) CORONARY ANGIOGRAPHY: Left main coronary artery: No angiographically significant disease Left anterior descending coronary artery: No angiographically significant disease Left circumflex coronary artery: No angiographically significant disease Right coronary artery: Dominant. No angiographically significant disease LV ANGIOGRAPHY: in FLORES projection only. No wall motion abnormality. LVEF approx 55-60% IMPRESSION: 1. Mild pulmonary hypertension 2. Normal pulmonary wedge pressure and LVEDP 3. LVEF 55-60% 4. No angiographically significant disease PLAN Advised to quit smoking immediately and completely Advised supervisor in charge f/u for further eval and treatment of pulm hypertension Outpatient f/u advised GIBRAN LADD MD [facility] Jul 23, 2023 10:01
--- NOTE | 2023-07-23 10:09 | Discharge Inst-Cardiology ---
Discharge Inst-Cardiac Discharge Medications Continued Medications: Acetylcysteine (Nac) 600 Mg Capsule 600 MG PO DAILY, CAP Albuterol Sulfate (Ventolin Hfa) 18 Gm Hfa.aer.ad 2 PUFF INH Q4H PRN for SHORTNESS OF BREATH, INHALER Ascorbic Acid/Ascorbate Sodium (Vitamin C 250 mg Tablet Chew) 250 Mg Tab.chew 250 MG PO DAILY, TAB Budesonide/Glycopyr/Formoterol (Breztri Aerosphere Inhaler) 160 Mcg-9 Mcg-4.8 Mcg/Actuation Hfa.aer.ad 2 PUFF INH BID, EA Chlorphenir/Phenyleph/Aspirin ([place] Plus Cold Tab Eff) 2 Mg-7.8 Mg-325 Mg Tablet.eff 1 EACH PO DAILY PRN for ALLERGIES, TAB Dexlansoprazole (Dexlansoprazole Dr) 60 Mg Cap.dr.bp 60 MG PO DAILY, CAP Diazepam (Valium) 5 Mg Tablet 5 MG PO BID PRN for ANXIETY, TAB Diclofenac Sodium (Voltaren Arthritis Pain) 20 Gm Gel..gram. 1 APPLIC TP PRN PRN for PAIN-MILD (1-4), EA Diltiazem HCl (Cartia Xt) 240 Mg Cap.er.24h 240 MG PO DAILY Estradiol (Estrace Tablet) 1 Mg Tablet 1 MG PO DAILY, TAB Fexofenadine HCl (Fexofenadine HCl) 180 Mg Tablet 180 MG PO DAILY PRN for ALLERGIES, TAB Fluticasone Propionate (Fluticasone Propionate) 16 Gm [place].susp 2 SPRAY NS DAILY, EA Hydrocodone Bit/Acetaminophen (HYDROcodone/APAP 10/325 TABLET) 1 Each Tablet 1 EACH PO Q6H PRN for PAIN-MILD TO MODERATE, TAB Ipratropium/Albuterol Sulfate (Iprat-Albut 0.5-3(2.5) mg/3 ml) 0.5 Mg-3 Mg (2.5 Mg Base)/3 Ml Ampul.neb 3 ML PO QID PRN for SHORTNESS OF BREATH, EA Montelukast Sodium (Montelukast Sodium) 10 Mg Tablet 10 MG PO HS, TAB Nystatin (Nystatin) 100,000 Unit/Ml Oral.susp 5 ML PO Q6H PRN for MOUTH ISSUES, ML Ondansetron (Ondansetron Odt) 4 Mg Tab.rapdis 4 MG PO Q4H PRN for NAUSEA/VOMITING, TAB Pravastatin Sodium (Pravastatin Sodium) 40 Mg Tablet 40 MG PO HS, TAB Roflumilast (Daliresp) 500 Mcg Tablet 500 MCG PO DAILY, TAB Sucralfate (Sucralfate) 1 Gram/10 Ml Oral.susp 10 ML PO QID PRN for STOMACH UPSET, ML Tezepelumab-Ekko (Tezspire) 210 Mg/1.91 Ml (110 Mg/Ml) Syringe 210 MG SQ MONTHLY, SYRINGE Zinc Amino Acid Chelate (Zinc) 50 Mg Tablet 50 MG PO HS, TAB GIBRAN LADD MD FACP FACC CCDS Jul 23, 2023 10:09
--- NOTE | 2023-07-23 10:09 | Discharge Inst-Post CATH ---
Discharge Inst-CATH/EP Post Cardiac Cath/EP D/C Inst Follow Up/Plan F/u with Dr Chew in 6 weeks No smoking ACTIVITY * Go Home directly and rest. * Limit activity of the leg (or wrist if it was used) for 7 days including aerobics, swimming, jogging, bicycling, etc. * Restrict stair-climbing for 7 days if possible, if not, climb up with your non-cath leg, then bring together on the same step. * Avoid lifting, pushing, pulling or excessive movement of the affected extremity for 7 days. * Customary sexual activity may be resumed after 2 days-use caution not to use a position that strains or causes pain to the affected extremity. * No driving for 24 hours. * NO SMOKING. * Avoid straining for bowel movements for 7 days. * Gentle walking on level ground is allowed. * Returning to work will depend on the type of procedure and the results. Your doctor will discuss this with you. CALL YOUR DOCTOR FOR ANY OF THE FOLLOWING: *If bleeding from the puncture site occurs- Apply gentle pressure to site with clean cloth and call your doctor or EMS. * If a knot or lump forms under the skin, increases in size, or causes pain. * If bruising appears to be worsening or moving further down your leg instead of disappearing. * Temperature above 101 F. CARE OF YOUR GROIN INCISION; * Bruising or purple discoloration of the skin near the puncture site is common. * You may shower only, no bathtub bathing for 5 days. Be careful to avoid slipping as your leg may feel stiff. * If a closure device was used on your femoral artery, please see the attached guide regarding care of the device and your leg. * Leave dressing on FOR 24 hours. CARE OF YOUR WRIST INCISION; * Bruising or purple discoloration of the skin near the puncture site is common. * You may shower. * DO NOT submerge wrist. * Leave dressing on FOR 24 hours. GIBRAN CHEW MD [facility] CCDS Jul 23, 2023 10:09
[2023-07-23] MEDS ORDERED: PATIENT MAY USE OWN MEDS, ALL PO SCH (10:15)
== END 2023-07-23 13:45 | disposition home or self-care (01) ==
LOC: CATH 07:08 → SDC 10:24 → CATH 13:45
PROVIDERS: ATTEND Internal Medicine Cardiovascular Disease
DX: I27.20 Pulmonary hypertension, unspecified (principal); I25.10 Atherosclerotic heart disease of native coronary artery without angina pectoris; E03.9 Hypothyroidism, unspecified; E66.9 Obesity, unspecified; J44.9 Chronic obstructive pulmonary disease, unspecified; C34.91 Malignant neoplasm of unspecified part of right bronchus or lung; K58.9 Irritable bowel syndrome, unspecified; G89.29 Other chronic pain; I65.29 Occlusion and stenosis of unspecified carotid artery; G47.33 Obstructive sleep apnea (adult) (pediatric); F17.210 Nicotine dependence, cigarettes, uncomplicated; F17.290 Nicotine dependence, other tobacco product, uncomplicated; Z79.890 Hormone replacement therapy; Z68.29 Body mass index [BMI] 29.0-29.9, adult; Z79.82 Long term (current) use of aspirin; Z99.81 Dependence on supplemental oxygen
CPT/HCPCS: 36415; 80053; 80061; 85027; 85610; 85730; 87081; 93005; 93460